=== PATIENT | female | born 1940 | race Caucasian/White ===

== ENCOUNTER → 2017-05-22 11:01 | Outpatient (CLI) | payer MEDICARE, SELFPAY ==
[2017-05-22 13:08] LABS: AST(SGOT) 16 U/L (15-37); Alanine Aminotransfer ALT/SGPT 23 U/L (13-56); Albumin, Serum 3.9 g/dL (3.2-5.0); Alkaline Phosphatase 101 U/L (45-117); Bilirubin, Direct 0.17 mg/dL (0.00-0.30); Globulin 3.5 g/dL (2.2-4.2); Protein, Total 7.4 g/dL (6.4-8.2)
== END ==
PROVIDERS: Family Provider Internal Medicine; PCP Internal Medicine; Visit Provider Internal Medicine Gastroenterology
DX: R10.9 Unspecified abdominal pain (principal); Z90.49 Acquired absence of other specified parts of digestive tract
CPT/HCPCS: 36415; 80076

== ENCOUNTER → 2017-09-14 07:22 | Outpatient (CLI) | payer MEDICARE, SELFPAY ==
[2017-09-14 09:55] LABS: AST(SGOT) 121 U/L (15-37); Alanine Aminotransfer ALT/SGPT 334 U/L (13-56); Albumin, Serum 3.4 g/dL (3.2-5.0); Alkaline Phosphatase 184 U/L (45-117); Bilirubin, Direct 0.62 mg/dL (0.00-0.30); Cholesterol 124 mg/dL (200); Globulin 3.7 g/dL (2.2-4.2); High Density Lipoprotein 51 mg/dL; Protein, Total 7.1 g/dL (6.4-8.2); Triglycerides 91 mg/dL; Very Low Density Lipoprotein 18 mg/dL (5-40)
== END ==
PROVIDERS: Family Provider Internal Medicine; PCP Internal Medicine; Visit Provider Physician Assistant Medical
DX: E78.5 Hyperlipidemia, unspecified (principal); Z79.899 Other long term (current) drug therapy
CPT/HCPCS: 36415; 80061; 80076

== ENCOUNTER → 2017-09-21 08:26 | Outpatient (CLI) | payer MEDICARE, SELFPAY ==
[2017-09-21 09:51] LABS: AST(SGOT) 24 U/L (15-37); Alanine Aminotransfer ALT/SGPT 67 U/L (13-56); Albumin, Serum 3.4 g/dL (3.2-5.0); Alkaline Phosphatase 158 U/L (45-117); Bilirubin, Direct 0.27 mg/dL (0.00-0.30); Globulin 3.7 g/dL (2.2-4.2); Protein, Total 7.1 g/dL (6.4-8.2)
== END ==
PROVIDERS: Physician Assistant Medical; Family Provider Internal Medicine; PCP Internal Medicine; Visit Provider Internal Medicine Cardiovascular Disease
DX: R74.8 Abnormal levels of other serum enzymes (principal)
CPT/HCPCS: 36415; 80076

== ENCOUNTER → 2017-12-25 07:38 | Outpatient (CLI) | payer MEDICARE, SELFPAY ==
[2017-12-25 08:51] LABS: AST(SGOT) 18 U/L (15-37); Alanine Aminotransfer ALT/SGPT 21 U/L (13-56); Albumin, Serum 3.6 g/dL (3.2-5.0); Alkaline Phosphatase 90 U/L (45-117); Bilirubin, Direct 0.15 mg/dL (0.00-0.30); Cholesterol 209 mg/dL (200); Globulin 3.6 g/dL (2.2-4.2); High Density Lipoprotein 52 mg/dL; Protein, Total 7.2 g/dL (6.4-8.2); Triglycerides 150 mg/dL; Very Low Density Lipoprotein 30 mg/dL (5-40)
== END ==
PROVIDERS: Family Provider Internal Medicine; PCP Internal Medicine; Referring Provider Internal Medicine Cardiovascular Disease; Visit Provider Internal Medicine Cardiovascular Disease
DX: E78.00 Pure hypercholesterolemia, unspecified (principal); I10 Essential (primary) hypertension
CPT/HCPCS: 36415; 80061; 80076

== ENCOUNTER → 2018-04-16 05:49 | Outpatient (CLI) | payer MEDICARE, SELFPAY ==
[2018-03-20 10:29] VITALS: BMI 31.1
--- NOTE | 2018-04-16 06:06 | ECHOD_ITS ---
Reason For Study: [place] Procedure This was a 2D Doppler, Color Flow transthoracic echocardiogram. Exam performed in department. Left Ventricle Normal LV size. Left ventricular systolic function is normal. The estimated ejection fraction is 65 %. Stage 1 diastolic dysfunction. No regional wall motion abnormalities noted. Right Ventricle Normal RV size. Normal systolic function. Atria Normal left atrium. Normal right atrium. Mitral Valve Bileaflet diffuse mitral valve thickening. Mild focal mitral valve calcification of the posterior leaflet. Mild (1+) eccentric mitral valve insufficiency. Tricuspid Valve Normal tricuspid valve. Mild (1+) tricuspid valve insufficiency. Pulmonary artery systolic pressure is 31 mmHg. Aortic Valve Trisinus/trileaflet aortic valve. Mild focal aortic valve calcification. Peak aortic valve gradient 26 mmHg. Mean aortic valve gradient 16 mmHg. Mild aortic stenosis. Calculated aortic valve area (continuity equation) is 1.5 cm2. Mild (1+) aortic valve insufficiency. Pulmonic Valve Normal pulmonic valve. Great Vessels Normal aortic root. The pulmonary artery is normal size. Normal inferior vena cava. MMode/2D Measurements & Calculations LVIDd: 4.0 cm IVSd: 0.85 cm LVOT diam: 2.0 cm LVIDs: 2.2 cm LVPWd: 0.87 cm LVOT area: 3.1 cm2 RVDd: 3.2 cm FS: 45.5 % Ao root diam: 2.9 cm LAV(MOD-bp): 46.9 ml LA A4 area: 16.7 cm2 LAV(MOD-bp) Indexed: 24.0 ml/m2 LAV(MOD-sp2): 55.7 ml LAV(MOD-sp4): 39.5 ml LA dimension(2D): 4.3 cm RA A4 area: 15.5 cm2 Doppler Measurements & Calculations MV E max ascencion: 153.8 cm/sec Lat Peak E' Ascencion: 7.2 cm/sec Med Peak E' Ascencion: 6.3 cm/sec MV A max ascencion: 195.1 cm/sec E/E' lat: 21.3 E/E' med: 24.3 MV E/A: 0.79 MV V2 max: 197.8 cm/sec Ao V2 max: 257.2 cm/sec AI max ascencion: 491.7 cm/sec MV max P.7 mmHg Ao max P.5 mmHg AI max P.8 mmHg MV V2 mean: 110.0 cm/sec Ao V2 mean: 192.1 cm/sec MV mean P.6 mmHg Ao mean P.3 mmHg AI dec slope: 275.4 cm/sec2 MV V2 VTI: 61.1 cm Ao V2 VTI: 63.1 cm AI P1/2t: 523.0 msec MVA(VTI): 1.5 cm2 TANIKA(I,D): 1.5 cm2 TANIKA(V,D): 1.5 cm2 LV V1 max: 122.9 cm/sec MR max ascencion: 568.1 cm/sec SV(LVOT): 91.8 ml LV V1 max P.1 mmHg MR max P.1 mmHg LV V1 mean P.5 mmHg LV V1 mean: 89.4 cm/sec LV V1 VTI: 29.8 cm PA V2 max: 115.8 cm/sec TR max ascencion: 258.0 cm/sec TR max P.7 mmHg Interpretation Summary Normal LV size. Left ventricular systolic function is normal. The estimated ejection fraction is 65 %. Stage 1 diastolic dysfunction. Mild focal aortic valve calcification. Mild aortic stenosis. Mild (1+) tricuspid valve insufficiency. Pulmonary artery systolic pressure is 31 mmHg. Ordering Physician: Leslie Tafoya Referring Physician: Leslie Tafoya Performed By: Lisa Connelly RDCS, RVT
--- NOTE | 2018-04-16 12:46 | STRESSREP ---
Stress Test Report Exercise myocardial perfusion stress test. 77-year-old lady with a history of chest pain. Medications: Cozaar, Lantus, metoprolol, lisinopril, omeprazole. Stress protocol: Resting EKG demonstrates normal sinus rhythm with a rate of 65 bpm normal intervals are noted resting blood pressure is 140/70 mmHg. The patient exercised according to regular Andre protocol for total duration of 6 minutes and 30 seconds the maximum heart rate attained was 134 bpm which was 92% of maximum predicted heart rate the maximum workload attained was 7.7 metabolic equivalents. At rest there were no ST or T wave changes noted suggest ischemia at peak exercise no ST or T wave changes were noted suggest ischemia. No clinical angina was noted the test was terminated due to leg fatigue. The resting blood pressure 140/70 with a peak blood pressure 152/78. Rate pressure product was 18,600. Myocardial perfusion protocol. 11.3 mCi of technetium 99m sestamibi was injected at rest. The patient exercised according to regular Andre protocol for 6-1/2 minutes attaining 92% of maximum predicted heart rate and a workload of 7.7 metastases. At peak exercise 33.5 mCi of technetium 99m sestamibi was injected stress images were obtained stress and rest images were reconstructed and compared in the short axis vertical long horizontal long axis. Gated images were also obtained for Perfusion SPECT analysis: Review of the stress images demonstrate normal uptake of tracer noted in all areas of the myocardium. Rest images similarly demonstrate normal uptake of tracer noted in all areas of the myocardium. No areas of reversibility are noted suggest ischemia no previous infarct is noted. Gated SPECT analysis: The gated ejection fraction is noted to be 86%. Conclusion: Normal exercise myocardial perfusion stress test at a moderate workload. No clinical angina noted. Good functional capacity noted. Preserved ejection fraction.
--- OUTSIDE RECORDS SUMMARY | 2018-06-20 21:57 | XMS RPT_ITS ---
:1940 Author Organization OHIP Support Name Relationship Address Phone RAMÓN FISHER Unavailable [address] + [place] [address] R Unavailable Unavailable Unavailable LYNCH, RIP Unavailable Unavailable + [place] [address] RAMÓN FISHER Unavailable [address] + [place] [address] R Unavailable Unavailable Unavailable LYNCH, RIP Unavailable Unavailable + [place] [address] RAMÓN FISHER Unavailable [address] + [place] [address] R Unavailable Unavailable Unavailable LYNCH, RIP Unavailable . + ., . . RAMÓN FISHER Unavailable [address] + [place] [address] R Unavailable Unavailable Unavailable LYNCH, RIP Unavailable Unavailable + RAMÓN FISHER Unavailable [address] + [place] [address] R Unavailable Unavailable Unavailable LYNCH, RIP Unavailable . + [place] [address] RAMÓN FISHER Unavailable [address] + [place] [address] R Unavailable Unavailable Unavailable LYNCH, RIP Unavailable Unavailable + RAMÓN FISHER Unavailable [address] + [place] [address] R Unavailable Unavailable Unavailable LYNCH, RIP Unavailable Unavailable + RAMÓN FISHER Unavailable [address] + [place] [address] R Unavailable Unavailable Unavailable RAMÓN FISHER Unavailable [address] + [place] [address] R Unavailable Unavailable Unavailable Care Team Providers Name Role Phone TALAMPAS, LORI D Referring Unavailable TALAMPAS, LORI D Referring Unavailable TALAMPAS, LORI D Attending Unavailable TALAMPAS, LORI D Referring Unavailable TALAMPAS, LORI D Referring Unavailable TALAMPAS, LORI D Referring Unavailable MI POOLE ([employer]) Attending Unavailable TALAMPAS, LORI D Attending Unavailable TALAMPAS, LORI D Referring Unavailable TALAMPAS, LORI D Referring Unavailable TALAMPAS, LORI D Referring Unavailable TALAMPAS, LORI D Referring Unavailable Leslie Tafoya Attending Unavailable Talampas, Lori Referring Unavailable TafoyaLeslie gamez Attending Unavailable TafoyaLeslie Referring Unavailable Talampas, Lori Primary Care Unavailable Bobby Contreras Attending Unavailable Talampas, Lori Primary Care Unavailable TafoyaLeslie gamez Attending Unavailable Leslie Tafoya Referring Unavailable Talampas, Lori Primary Care Unavailable Romain, Guicho Attending Unavailable Romain, Guicho Referring Unavailable Talampas, Lori Primary Care Unavailable Romain, Guicho Attending Unavailable Leslie Tafoya Referring Unavailable Talampas, Lori Primary Care Unavailable Leslie Tafoya Consulting Unavailable Romain, Guicho Attending Unavailable Talampas, Lori Referring Unavailable Talampas, Lori Primary Care Unavailable Romain, Guicho Attending Unavailable Romain, Guicho Referring Unavailable Talampas, Lori Primary Care Unavailable Leslie Tafoya Attending Unavailable Talampas, Lori Referring Unavailable Talampas, Lori Primary Care Unavailable PROBLEMS PROBLEMS DATE TYPE CONDITION / CODE ATTENDING STATUS SOURCE Unknown I25.10 - Atherosclerotic Romain, [place] Active [place] [facility] heart disease of [place] [facility] coronary artery without Hospital angina pectoris / Repository I25.10(ICD-10) Unknown R01.1 - Cardiac murmur, Romain, [place] Active [place] unspecified / Community R01.1(ICD-10) Hospital Repository Active Type 2 diabetes mellitus NA Active [place] [address] without complications / Clinic Main E11.9(ICD-10) [place] Repository Active [facility] (current) use NA Active [place] 8 of insulin / Clinic Main Z79.4(ICD-10) [place] Repository Active Asymptomatic menopausal NA Active [place] 8 state / Z78.0(ICD-10) Clinic Main [place] Repository Unknown I10 - Essential (primary) Romain, Guich[place] Active [place] hypertension / Community I10(ICD-10) Hospital Repository Unknown E78.00 - Pure Romain, [place] Active [place] 8 hypercholesterolemia, Community unspecified / Hospital E78.00(ICD-10) Repository Active Essential (primary) NA Active [place] hypertension / Clinic Main I10(ICD-10) [place] Repository Active Type 2 diabetes mellitus NA Active [place] 8 with hyperglycemia / Clinic Main E11.65(ICD-10) [place] Repository Active Other abnormal glucose / NA Active [place] 8 R73.09(ICD-10) Clinic Main [place] Repository Active Abnormal levels of other NA Active [place] 8 serum enzymes / Clinic Main R74.8(ICD-10) [place] Repository Unknown 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, 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 Community graft / Z95.1(ICD-10) Hospital Repository Unknown R09.89 - Other specified Romain, [place] Active [place] 8 symptoms and signs Community involving the circulatory Hospital and respiratory systems / Repository R09.89(ICD-10) Unknown E78.0 - Pure Romain, [place] Active [place] hypercholesterolemia / Community E78.0(ICD-10) Hospital Repository Unknown 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 / [facility] Z79.899(ICD-10) Hospital Repository Unknown E78.5 - Hyperlipidemia, Tafoya, Active [place] 8 unspecified / [facility] E78.5(ICD-10) Hospital Repository Active Mixed hyperlipidemia / NA Active [place] 5 E78.2(ICD-10) Clinic Main [place] Repository Active Other obesity due to NA Active [place] 8 excess calories / Clinic Main E66.09(ICD-10) [place] Repository Active Other licensed mass real estate appraiser (current) NA Active [place] 8 drug therapy / Clinic Main Z79.899(ICD-10) [place] Repository Active Encounter for screening NA Active [place] [address] mammogram for malignant Clinic Main neoplasm of breast / [place] Z12.31(ICD-10) Repository PROCEDURES PROCEDURES No Procedure Records FoundRESULTS RESULTS STRESS REPORT Observed: 04/16/2018 Status: F Source: [place] 12:48 PM [facility] REPOSITORY [facility] Cardiovascular Services [address] [place] [address] MR#: [id number] Acct: [id number] Name: MAGNOLIA FISHER Rep #: [id number] : 1940 77 From: Guicho Hoyos MD Primary Care: Lori Can MD Status: REG CLI Ordering Dr: Sex: F C Stress Test Report Exercise myocardial perfusion stress test. 77-year-old lady with a history of chest pain. Medications: Cozaar, Lantus, metoprolol, lisinopril, omeprazole. Stress protocol: Resting EKG demonstrates normal sinus rhythm with a rate of 65 bpm normal intervals are noted resting blood pressure is 140/70 mmHg. The patient exercised according to regular Andre protocol for total duration of 6 minutes and 30 seconds the maximum heart rate attained was 134 bpm which was 92% of maximum predicted heart rate the maximum workload attained was 7.7 metabolic equivalents. At rest there were no ST or T wave changes noted suggest ischemia at peak exercise no ST or T wave changes were noted suggest ischemia. No clinical angina was noted the test was terminated due to leg fatigue. The resting blood pressure 140/70 with a peak blood pressure 152/78. Rate pressure product was 18,600. Myocardial perfusion protocol. 11.3 mCi of technetium 99m sestamibi was injected at rest. The patient exercised according to regular Andre protocol for 6-1/2 minutes attaining 92% of maximum predicted heart rate and a workload of 7.7 metastases. At peak exercise 33.5 mCi of technetium 99m sestamibi was injected stress images were obtained stress and rest images were reconstructed and compared in the short axis vertical long horizontal long axis. Gated images were also obtained for Perfusion SPECT analysis: Review of the stress images demonstrate normal uptake of tracer noted in all areas of the myocardium. Rest images similarly demonstrate normal uptake of tracer noted in all areas of the myocardium. No areas of reversibility are noted suggest ischemia no previous infarct is noted. Gated SPECT analysis: The gated ejection fraction is noted to be 86%. Conclusion: Normal exercise myocardial perfusion stress test at a moderate workload. No clinical angina noted. Good functional capacity noted. Preserved ejection fraction. 04/16/18 1248 <Electronically signed by Guicho Hoyos MD> Date Guicho Hoyos MD CC: Lori Can MD; Leslie Tafoya Date Dictated: 04/16/181245 Date Transcribed: 04/16/181245 Manager Data Warehousing: CO Signed ECHOCARDIOGRAM COMPLETE Observed: 04/16/2018 Status: F Source: [place] 12:35 PM [facility] REPOSITORY [facility] Cardiovascular Services [address] [place] [id number] Echo Complete 04/16/18 0849 MR#: [id number] Acct: [id number] Name: MAGNOLIA FISHER Rep #: [id number] : 1940 77 From: Guicho Hoyos MD Attending Dr: Leslie Tafyoa Status: REG CLI Ordering Dr: Leslie Tafoya Date: 04/16/18 Location: [facility] Sex: F C Admitted: Reason For Study: [place] Procedure This was a 2D Doppler, Color Flow transthoracic echocardiogram. Exam performed in department. Left Ventricle Normal LV size. Left ventricular systolic function is normal. The estimated ejection fraction is 65 %. Stage 1 diastolic dysfunction. No regional wall motion abnormalities noted. Right Ventricle Normal RV size. Normal systolic function. Atria Normal left atrium. Normal right atrium. Mitral Valve Bileaflet diffuse mitral valve thickening. Mild focal mitral valve calcification of the posterior leaflet. Mild (1+) eccentric mitral valve insufficiency. Tricuspid Valve Normal tricuspid valve. Mild (1+) tricuspid valve insufficiency. Pulmonary artery systolic pressure is 31 mmHg. Aortic Valve Trisinus/trileaflet aortic valve. Mild focal aortic valve calcification. Peak aortic valve gradient 26 mmHg. Mean aortic valve gradient 16 mmHg. Mild aortic stenosis. Calculated aortic valve area (continuity equation) is 1.5 cm2. Mild (1+) aortic valve insufficiency. Pulmonic Valve Normal pulmonic valve. Great Vessels Normal aortic root. The pulmonary artery is normal size. Normal inferior vena cava. MMode/2D Measurements AND Calculations LVIDd: 4.0 cm IVSd: 0.85 cm LVOT diam: 2.0 cm LVIDs: 2.2 cm LVPWd: 0.87 cm LVOT area: 3.1 cm2 RVDd: 3.2 cm FS: 45.5 % Ao root diam: 2.9 cm LAV(MOD-bp): 46.9 ml LA A4 area: 16.7 cm2 LAV(MOD-bp) Indexed: 24.0 ml/m2 LAV(MOD-sp2): 55.7 ml LAV(MOD-sp4): 39.5 ml LA dimension(2D): 4.3 cm RA A4 area: 15.5 cm2 Doppler Measurements AND Calculations MV E max ned: 153.8 cm/sec Lat Peak E' Ned: 7.2 cm/sec Med Peak E' Ned: 6.3 cm/sec MV A max ned: 195.1 cm/sec E/E' lat: 21.3 E/E' med: 24.3 MV E/A: 0.79 MV V2 max: 197.8 cm/sec Ao V2 max: 257.2 cm/sec AI max ned: 491.7 cm/sec MV max P.7 mmHg Ao max P.5 mmHg AI max P.8 mmHg MV V2 mean: 110.0 cm/sec Ao V2 mean: 192.1 cm/sec MV mean P.6 mmHg Ao mean P.3 mmHg AI dec slope: 275.4 cm/sec2 MV V2 VTI: 61.1 cm Ao V2 VTI: 63.1 cm AI P1/2t: 523.0 msec MVA(VTI): 1.5 cm2 TANIKA(I,D): 1.5 cm2 TANIKA(V,D): 1.5 cm2 LV V1 max: 122.9 cm/sec MR max ned: 568.1 cm/sec SV(LVOT): 91.8 ml LV V1 max P.1 mmHg MR max P.1 mmHg LV V1 mean P.5 mmHg LV V1 mean: 89.4 cm/sec LV V1 VTI: 29.8 cm PA V2 max: 115.8 cm/sec TR max ned: 258.0 cm/sec TR max P.7 mmHg Interpretation Summary Normal LV size. Left ventricular systolic function is normal. The estimated ejection fraction is 65 %. Stage 1 diastolic dysfunction. Mild focal aortic valve calcification. Mild aortic stenosis. Mild (1+) tricuspid valve insufficiency. Pulmonary artery systolic pressure is 31 mmHg. Ordering Physician: Leslie Tafoya Referring Physician: Leslie Tafoya Performed By: Lisa Connelly RDCS, RVT 04/16/18 1234 Date Guicho Hoyos MD CC: Lori Can MD; Leslie Tafoya Date Dictated: 04/16/18 0849 Date Transcribed: 04/16/18 1234 Manager Data Warehousing: Signed PROGRESS Observed: 04/08/2018 Status: COMPLETED Source: [place] 3:00 PM [facility] REPOSITORY O ID: [id number] Author: Mali Dawson (Pharmacist) Service: (none) Author Type: Pharmacist Type: Progress Notes Filed: 04/10/2018 9:12 AM Note Text: Patient consents to pharmacy collaborative practice agreement. REASON FOR CONSULT: DM? GOALS: A1c <?7% CONSULTING PROVIDER: Dr. Can Date of Consult: 11/14/17 Magnolia Fisher is a 77 year old female was last seen in [facility]?by PCP, Dr. Lori Can MD on 12/24/17. Patient is presenting today for?f/u?pharmacotherapy management?appointment for DM.? At?last PharmD visit metformin was increased INTERIM HISTORY: Reports diarrhea with metformin 2 pills, better on one pill Dr. Hoyos stopped statin Stress test next week Continued stressor at home taking care of with recurrent COPD exacerbations, having a swallow study done Current DM Medications: Metformin ER 500mg daily (GI upset with higher doses) Insulin glargine (Lantus) VIAL?30 units QHS Insulin aspart 14 units TID meals - right before each meal Canagliflozin 300mg QAM Current HTN Medications: Losartan 50mg once daily Metoprolol succinate 100mg once daily Preventative Medications: ? On ANGELA/ARB: Yes ? On Statin: Yes ? On ASA: No ROS: ? Patient denies CP, SOB, GARCIA, blurred vision, dizziness or lightheadedness ? Patient denies symptoms of hypoglycemia (sweating, anxiety, palpitations, hunger, and tremor) ? Patient denies symptoms of hyperglycemia (polyuria, polydipsia, polyphagia) ? Patient denies potential medication adverse effects DIET/EXERCISE/SOCIAL Hx: ? MEDICATIONS: ? Pill bottles are not?present. ? Adherence: denies missed doses ? Pharmacy: [facility] mail order? Rx coverage: [employer] ? Affordability: insulin and Invokana most expensive (reports that [facility] reimburses patient) ? Diabetes supplies: [employer] ? Organization System: none ACTIVE PROBLEM LIST Myalgia and Myositis, Unspecified Mixed Hyperlipidemia Essential Hypertension Obesity, Unspecified Degeneration of Cervical Intervertebral Disc Diabetes Mellitus (Hcc) Cervical radiculopathy Esophageal Reflux Retinal Hemorrhage Disorder of Bone and Cartilage, Unspecified Acute Gastritis Without Mention of Hemorrhage Diaphragmatic Hernia Without Mention of Obstruction Or Gangrene Depression Sleep Apnea Choledocholithiasis Chronic Cholecystitis Gastroparesis PAST MEDICAL HISTORY Diagnosis Date - Acute gastritis without mention of hemorrhage - Asthma - Coronary atherosclerosis of unspecified type of vessel, [place] or graft - Depression - Diaphragmatic hernia without mention of obstruction or gangrene - Esophageal reflux 07/29/2006 - Hypersomnia with sleep apnea, unspecified - Irritable bowel syndrome - Localized osteoarthrosis not specified whether primary or secondary, unspecified site - Myalgia and myositis, unspecified - Obesity, unspecified - Obstructive sleep apnea - Other and unspecified hyperlipidemia - Other specified gastritis - Retinal hemorrhage 02/27/2007 Dr. Yu - Type II or unspecified type diabetes mellitus without mention of complication, uncontrolled - Unspecified essential hypertension ALLERGIES Allergen Reactions - Lisinopril Cough Resolved after stopped medication - Seasonal Allergies Other: See Comments wheezing Medication List Medication Directions Comments Action/Plan albuterol HFA (PROAIR HFA) 90 mcg/actuation inhaler Inhale 2 Puffs as instructed every 4 hours as needed. atorvastatin (LIPITOR) 40 mg tablet Take 1 tablet by mouth once daily. BD INSULIN SYRINGE UF II 1/2 mL 31 x 5/16 syrg USE DIRECTED WITH LANTUS benzonatate (TESSALON PERLE) 100 mg capsule Take 2 capsules by mouth three times daily as needed. blood sugar diagnostic (ACCU-CHEK LENORE PLUS TEST STRP) test strip Test blood sugar(s) 3 times daily. Dx: Type 2 DM - Uncontrolled E11.65 Insulin: Yes Blood-Glucose Meter (ACCU-CHEK LENORE PLUS METER) [facility] Dispense 1 Meter Kit. Dx: E11.65 canagliflozin (INVOKANA) 300 mg tablet Take 1 tablet by mouth daily before breakfast. Cholecalciferol, Vitamin D3, 2,000 unit Tab Take 1 capsule by mouth one time daily insulin aspart U-100 (NOVOLOG FLEXPEN U-100 INSULIN) 100 unit/mL inpn Inject 14 Units subcutaneously three times daily before meals. insulin glargine (LANTUS U-100 INSULIN) 100 unit/mL injection Inject 30 Units subcutaneously once daily. Lancets lancets Test blood sugar(s) 3 times daily. Dx: Type 2 DM - Controlled 65 Insulin: Yes loratadine (CLARITIN) 10 mg tablet Take 1 tablet by mouth once daily as needed. FOR ALLERGY SYMPTOMS losartan (COZAAR) 50 mg tablet Take 1 tablet by mouth once daily. metFORMIN ER (GLUCOPHAGE XR) 500 mg 24 hr tablet Take 2 tablets by mouth once daily. metoprolol succinate ER (TOPROL XL) 100 mg Tb24 Take 1 tablet by mouth once daily. pykyrxmk-yib-jqpg-FA-lutein (CENTRUM SILVER WOMEN) 8 mg iron- 400 mcg-300 mcg tab Take 1 tablet by mouth daily nitroglycerin sublingual (NITROSTAT) 0.4 mg SL tablet Dissolve 1 tablet under the tongue as needed. If no pain relief call 911. Dr. Hoyos. omeprazole (PRILOSEC) 20 mg capsule Take 1 capsule by mouth daily before breakfast. 1/2 hr before meal. vitamin b complex tab Take 1 tablet by mouth once daily. GLYCEMIC CONTROL: ? Glucometer present at visit: No ? SMBG?s: ? Reports FBGs 130, 150 at noon, 190-200 at night ? One low - 12/24 - 50 mg/dL forgot to eat ? Hypoglycemia: denies ? How corrected: ate, does have glucose tabs Last 3 Encounter BP Readings: Date: BP: 01/27/2018 116/57 01/20/2018 122/72 12/24/2017 118/72 Wt: 74.8 kg (165 lb) BMI: 31.18 kg/(m2) LABS Lab Results Component Value Date HBA1C 8.1 04/03/2018 HBA1C 8.4 12/20/2017 HBA1C 9.2 11/12/2017 CMP: Glucose 176 04/03/2018 BUN 16 04/03/2018 Creatinine 0.69 04/03/2018 Sodium 140 04/03/2018 Potassium 4.7 04/03/2018 Chloride 102 04/03/2018 CO2 25 04/03/2018 Protein, Total 6.9 04/03/2018 Albumin 4.0 04/03/2018 Calcium 9.1 04/03/2018 Alkaline Phosphatase 102 04/03/2018 Bilirubin, Total 0.6 04/03/2018 AST 27 04/03/2018 ALT 17 04/03/2018 Last Lipid Panel Lab Results Component Value Date CHOL 188 04/03/2018 Lab Results Component Value Date HDL 59 04/03/2018 Lab Results Component Value Date LDL 111 04/03/2018 Lab Results Component Value Date TG 92 04/03/2018 Albumin/Creat Ratio (mg/g) Date Value 08/17/2017 Not calculated PHARMACOTHERAPY ASSESSMENT/PLAN: 1. Type 2 diabetes mellitus without complication, with long- term current use of insulin ([facility]) - ICD9: 250.00, V58.67, ICD10: E11.9, Z79.4 (primary diagnosis) A1c goal <?7%, patient is not?at goal (8.1% on 04/03). Could consider goal < 8% given age.?FBGs reported mostly at goal and PPBGs not?at goal but improving, with one episode of hypoglycemia. Patient had to self-decrease metformin d/t GI upset. Continue regimen at this time.?Renal fxn and LFTs WNL?and appropriate for continued therapy ? CONTINUE metformin ER 500mg once daily, Lantus 30 units QHS, Novolog 14 units TID meals, and Invokana 300mg daily ? Instructed patient continue checking FBGs and PPBGs 3x daily, bring glucometer to next visit ? Discussed hypoglycemia treatment with rule of 15, has glucose tabs 2. Mixed hyperlipidemia - ICD9: 272.2, ICD10: E78.2 Pt is on high statin intensity as of December 2017 (previously on atorvastatin 10mg) Patient compliant with and tolerating current regimen. Will continue and recheck lipids in July. LFTs and renal fxn WNL and appropriate for continued therapy ? CONTINUE atorvastatin 40mg daily Patient is scheduled to see PCP 04/28/18. Patient to return to clinic for PharmD f/u on 05/13. Patient verbalized understanding of instructions. Mali Dawson PharmD, BCPS CNOV Observed: 04/08/2018 Status: COMPLETED Source: [place] 3:00 PM [facility] REPOSITORY Office Visit (PHMEWO) MAGNOLIA FISHER ([id number]) 1940 F BLD Date Time Provider Department 04/08/18 3:00 PM SAMIR (PHARMACIST), MALI RAINEY During your visit today, we recorded the following information about you: LEE PABLO 04/10/2018 9:12 AM Signed Patient consents to pharmacy collaborative practice agreement. REASON FOR CONSULT: DM? GOALS: A1c <?7% CONSULTING PROVIDER: Dr. Can Date of Consult: 11/14/17 Magnloia Fisher is a 77 year old female was last seen in [facility]?by PCP, Dr. Lori Can MD on 12/24/17. Patient is presenting today for?f/u?pharmacotherapy management?appointment for DM.? At?last PharmD visit metformin was increased INTERIM HISTORY: Reports diarrhea with metformin 2 pills, better on one pill Dr. Hoyos stopped statin Stress test next week Continued stressor at home taking care of with recurrent COPD exacerbations, having a swallow study done Current DM Medications: Metformin ER 500mg daily (GI upset with higher doses) Insulin glargine (Lantus) VIAL?30 units QHS Insulin aspart 14 units TID meals - right before each meal Canagliflozin 300mg QAM Current HTN Medications: Losartan 50mg once daily Metoprolol succinate 100mg once daily Preventative Medications: ? On ANGELA/ARB: Yes ? On Statin: Yes ? On ASA: No ROS: ? Patient denies CP, SOB, GARCIA, blurred vision, dizziness or lightheadedness ? Patient denies symptoms of hypoglycemia (sweating, anxiety, palpitations, hunger, and tremor) ? Patient denies symptoms of hyperglycemia (polyuria, polydipsia, polyphagia) ? Patient denies potential medication adverse effects DIET/EXERCISE/SOCIAL Hx: ? MEDICATIONS: ? Pill bottles are not?present. ? Adherence: denies missed doses ? Pharmacy: [facility] mail order? Rx coverage: [employer] ? Affordability: insulin and Invokana most expensive (reports that [facility] reimburses patient) ? Diabetes supplies: [employer] [facility] ? Organization System: none ACTIVE PROBLEM LIST Myalgia and Myositis, Unspecified Mixed Hyperlipidemia Essential Hypertension Obesity, Unspecified Degeneration of Cervical Intervertebral Disc Diabetes Mellitus (Hcc) Cervical radiculopathy Esophageal Reflux Retinal Hemorrhage Disorder of Bone and Cartilage, Unspecified Acute Gastritis Without Mention of Hemorrhage Diaphragmatic Hernia Without Mention of Obstruction Or Gangrene Depression Sleep Apnea Choledocholithiasis Chronic Cholecystitis Gastroparesis PAST MEDICAL HISTORY Diagnosis Date - Acute gastritis without mention of hemorrhage - Asthma - Coronary atherosclerosis of unspecified type of vessel, [place] or graft - Depression - Diaphragmatic hernia without mention of obstruction or gangrene - Esophageal reflux 07/29/2006 - Hypersomnia with sleep apnea, unspecified - Irritable bowel syndrome - Localized osteoarthrosis not specified whether primary or secondary, unspecified site - Myalgia and myositis, unspecified - Obesity, unspecified - Obstructive sleep apnea - Other and unspecified hyperlipidemia - Other specified gastritis - Retinal hemorrhage 02/27/2007 Dr. Yu - Type II or unspecified type diabetes mellitus without mention of complication, uncontrolled - Unspecified essential hypertension ALLERGIES Allergen Reactions - Lisinopril Cough Resolved after stopped medication - Seasonal Allergies Other: See Comments wheezing Medication List Medication Directions Comments Action/Plan albuterol HFA (PROAIR HFA) 90 mcg/actuation inhaler Inhale 2 Puffs as instructed every 4 hours as needed. atorvastatin (LIPITOR) 40 mg tablet Take 1 tablet by mouth once daily. BD INSULIN SYRINGE UF II 1/2 mL 31 x 5/16 syrg USE DIRECTED WITH LANTUS benzonatate (TESSALON PERLE) 100 mg capsule Take 2 capsules by mouth three times daily as needed. blood sugar diagnostic (ACCU-CHEK LENORE PLUS TEST STRP) test strip Test blood sugar(s) 3 times daily. Dx: Type 2 DM - Uncontrolled . Insulin: Yes Blood-Glucose Meter (ACCU-CHEK LENORE PLUS METER) [facility] Dispense 1 Meter Kit. Dx: E11. canagliflozin (INVOKANA) 300 mg tablet Take 1 tablet by mouth daily before breakfast. Cholecalciferol, Vitamin D3, 2,000 unit Tab Take 1 capsule by mouth one time daily insulin aspart U-100 (NOVOLOG FLEXPEN U-100 INSULIN) 100 unit/mL inpn Inject 14 Units subcutaneously three times daily before meals. insulin glargine (LANTUS U-100 INSULIN) 100 unit/mL injection Inject 30 Units subcutaneously once daily. Lancets lancets Test blood sugar(s) 3 times daily. Dx: Type 2 DM - Controlled Insulin: Yes loratadine (CLARITIN) 10 mg tablet Take 1 tablet by mouth once daily as needed. FOR ALLERGY SYMPTOMS losartan (COZAAR) 50 mg tablet Take 1 tablet by mouth once daily. metFORMIN ER (GLUCOPHAGE XR) 500 mg 24 hr tablet Take 2 tablets by mouth once daily. metoprolol succinate ER (TOPROL XL) 100 mg Tb24 Take 1 tablet by mouth once daily. mjfnwqgs-akx-qiai-FA-lutein (CENTRUM SILVER WOMEN) 8 mg iron- 400 mcg-300 mcg tab Take 1 tablet by mouth daily nitroglycerin sublingual (NITROSTAT) 0.4 mg SL tablet Dissolve 1 tablet under the tongue as needed. If no pain relief call 911. Dr. Hoyos. omeprazole (PRILOSEC) 20 mg capsule Take 1 capsule by mouth daily before breakfast. 1/2 hr before meal. vitamin b complex tab Take 1 tablet by mouth once daily. GLYCEMIC CONTROL: ? Glucometer present at visit: No ? SMBG?s: ? Reports FBGs 130, 150 at noon, 190-200 at night ? One low - 12/24 - 50 mg/dL forgot to eat ? Hypoglycemia: denies ? How corrected: ate, does have glucose tabs Last 3 Encounter BP Readings: Date: BP: 01/27/2018 116/57 01/20/2018 122/72 12/24/2017 118/72 Wt: 74.8 kg (165 lb) BMI: 31.18 kg/(m2) LABS Lab Results Component Value Date HBA1C 8.1 04/03/2018 HBA1C 8.4 12/20/2017 HBA1C 9.2 11/12/2017 CMP: Glucose 176 04/03/2018 BUN 16 04/03/2018 Creatinine 0.69 04/03/2018 Sodium 140 04/03/2018 Potassium 4.7 04/03/2018 Chloride 102 04/03/2018 CO2 25 04/03/2018 Protein, Total 6.9 04/03/2018 Albumin 4.0 04/03/2018 Calcium 9.1 04/03/2018 Alkaline Phosphatase 102 04/03/2018 Bilirubin, Total 0.6 04/03/2018 AST 27 04/03/2018 ALT 17 04/03/2018 Last Lipid Panel Lab Results Component Value Date CHOL 188 04/03/2018 Lab Results Component Value Date HDL 59 04/03/2018 Lab Results Component Value Date LDL 111 04/03/2018 Lab Results Component Value Date TG 92 04/03/2018 Albumin/Creat Ratio (mg/g) Date Value 08/17/2017 Not calculated PHARMACOTHERAPY ASSESSMENT/PLAN: 1. Type 2 diabetes mellitus without complication, with long- term current use of insulin ([facility]) - ICD9: 250.00, V58.67, ICD10: E11.9, Z79.4 (primary diagnosis) A1c goal <?7%, patient is not?at goal (8.1% on 04/03). Could consider goal < 8% given age.?FBGs reported mostly at goal and PPBGs not?at goal but improving, with one episode of hypoglycemia. Patient had to self-decrease metformin d/t GI upset. Continue regimen at this time.?Renal fxn and LFTs WNL?and appropriate for continued therapy ? CONTINUE metformin ER 500mg once daily, Lantus 30 units QHS, Novolog 14 units TID meals, and Invokana 300mg daily ? Instructed patient continue checking FBGs and PPBGs 3x daily, bring glucometer to next visit ? Discussed hypoglycemia treatment with rule of 15, has glucose tabs 2. Mixed hyperlipidemia - ICD9: 272.2, ICD10: E78.2 Pt is on high statin intensity as of December 2017 (previously on atorvastatin 10mg) Patient compliant with and tolerating current regimen. Will continue and recheck lipids in July. LFTs and renal fxn WNL and appropriate for continued therapy ? CONTINUE atorvastatin 40mg daily Patient is scheduled to see PCP 04/28/18. Patient to return to clinic for PharmD f/u on 05/13. Patient verbalized understanding of instructions. Mali Dawson, PharmD, [facility] MALI DAWSON, PHARMACIST 04/08/2018 3:[address] Hoyos office Call Mali if still questions Referring Provider: SELF [[id number]] Allergies As of Date: 04/08/2018 Noted Allergy Reaction LISINOPRIL 06/06/2011 3 - Cough Comments: Resolved after stopped medication SEASONAL ALLERGIES 06/26/2013 14 - Other: See Comments Comments: wheezing Date Reviewed: 01/20/2018 Reviewed by: Chino Daniels) - Fully Assessed Reason for Visit: Allied Health Visit [5] Cmt: DM follow-up Reason For Visit History Recorded Primary Visit Diagnosis:Type 2 diabetes mellitus without complication, with long-term current use of insulin (HCC) [E11.9, Z79.4] Other Visit Diagnosis:Mixed hyperlipidemia [E78.2] Order(s):metFORMIN ER (GLUCOPHAGE XR) 500 mg 24 hr tabletTake 1 tablet by mouth once daily.Disp: 90 tabletRfl: 3 Prescriptions as of 04/08/2018 Sig: METFORMIN ER 500 MG TABLET,EX* Take 1 tablet by mouth once d* INSULIN GLARGINE (U-100) 100 * Inject 30 Units subcutaneousl* BLOOD SUGAR DIAGNOSTIC STRIPS Test blood sugar(s) 3 times d* ATORVASTATIN 40 MG TABLET Take 1 tablet by mouth once d* BENZONATATE 100 MG CAPSULE Take 2 capsules by mouth thre* MULTIVIT WITH CDFFESYL-IYCL-Q* Take 1 tablet by mouth daily INSULIN ASPART U-100 100 UNI* Inject 14 Units subcutaneousl* CANAGLIFLOZIN 300 MG TABLET Take 1 tablet by mouth daily * METOPROLOL SUCCINATE ER 100 M* Take 1 tablet by mouth once d* LOSARTAN 50 MG TABLET Take 1 tablet by mouth once d* OMEPRAZOLE 20 MG CAPSULE,ELÍAS* Take 1 capsule by mouth daily* LANCETS Test blood sugar(s) 3 times d* BLOOD-GLUCOSE METER Dispense 1 Meter Kit. Dx: E1* BD INSULIN SYRINGE ULT-FINE I* USE DIRECTED WITH LANTUS LORATADINE 10 MG TABLET Take 1 tablet by mouth once d* NITROGLYCERIN 0.4 MG SUBLINGU* Dissolve 1 tablet under the t* VITAMIN B COMPLEX TABLET Take 1 tablet by mouth once d* CHOLECALCIFEROL (VITAMIN D3) * Take 1 capsule by mouth one t* ALBUTEROL SULFATE HFA 90 MCG/* Inhale 2 Puffs as instructed * Problem List As Of Date 04/08/2018 Noted Resolved MYALGIA AND MYOSITIS NOS [[id number]] Mixed hyperlipidemia [E78.2] Essential hypertension [I10] OBESITY NOS [E66.9] CERVICAL DISC DEGEN [M50.30] INVALID FOR* Diabetes mellitus (HCC) [E11.9] INVALID FOR* Cervical radiculopathy [[id number]] INVALID FOR* ESOPHAGEAL REFLUX [K21.9] INVALID FOR* RETINAL HEMORRHAGE [H35.60] INVALID FOR* More... BONE AND CARTILAGE DIS NOS [M89.9, M94.9] INVALID FOR* Acute gastritis without mention of hemorrhage [*INVALID FOR* Diaphragmatic hernia without mention of obstruc*INVALID FOR* Depression [F32.9] INVALID FOR* Sleep apnea [G47.30] INVALID FOR* More... Choledocholithiasis [K80.50] INVALID FOR* Chronic cholecystitis [K81.1] INVALID FOR* Gastroparesis [K31.84] INVALID FOR* Other instructions from your clinician: Call Dr. Hoyos office Call Mali if still questions Prescriptions ordered this encounter Disp Refills Start End METFORMIN ER 500 MG TABLET,EXTENDED * 90 t* 3 04/08/2018 Route: ORAL Sig: Take 1 tablet by mouth once daily. Medications Discontinued During This Encounter metFORMIN ER (GLUCOPHAGE XR) 500 mg * 180 * 3 03/31/2018 04/08/2018 Route: ORAL Sig: Take 2 tablets by mouth once daily. Disc: Reason for discontinue is not on file. Encounter Status:Closed by SAMIR (PHARMACIST)MALI on 04/10/18 COMP METABOLIC PANEL Collected: 04/03/2018 Status: F Source: [place] 7:46 AM [facility] REPOSITORY TYPE CODE TESTS RESULT OUT OF REFERENCE UNITS RANGE LAB TP 6.3-8.0 g/dL Protein, Total 6.9 LAB ALB 3.9-4.9 g/dL Albumin 4.0 LAB CA 8.5-10.2 mg/dL Calcium, Total 9.1 LAB TBIL 0.2-1.3 mg/dL Bilirubin, Total 0.6 LAB ALKP 34-123 U/L Alkaline Phosphatase 102 LAB AST 13-35 U/L AST 27 LAB GLU 74-99 mg/dL Glucose High 176 Result Comment: The [place] Diabetes Association (ADA) provides guidance for cutoff values for fasting glucose and random glucose. The ADA defines fasting as no caloric intake for at least 8 hours. Fas ting plasma glucose results between 100 to 125 mg/dL indicate increased risk for diabetes (prediabetes). Fasting plasma glucose results greater than or equal to 126 mg/dL meet the criteria for diagnosis of diabetes. In the absence of unequivocal hyperglycemia, results should be confirmed by repeat testing. In a patient with classic symptoms of hyperglycemia or hyperglycemic crisis, random plasma glucose results greater than or equal to 200 mg/dL meet the criteria for diagnosis of diabetes. Reference: Standards of Medical Care in Diabetes 2016, [place] Diabetes Association. Diabetes Care. 2016.39(Suppl 1). LAB BUN 7-21 mg/dL BUN 16 LAB CRET 0.58-0.96 mg/dL Creatinine 0.69 LAB NA 136-144 mmol/L Sodium 140 LAB K 3.7-5.1 mmol/L Potassium 4.7 LAB CL 97-105 mmol/L Chloride 102 LAB CO2 22-30 mmol/L CO2 25 LAB AGAP 9-18 mmol/L Anion Gap 13 LAB ALT 7-38 U/L ALT 17 LAB GFRAA eGFR- Amer. >60 LAB GFRNAA . eGFR-All Other Races >60 Result Comment: eGFR (Estimated GFR) Units of measure: mL/min/1.73 meters squared eGFR is derived from the reexpressed MDRD Study equation using the following parameters: serum creatinine, age, gender and race. The creatinine assay has been calibrated to be traceable to IDMS. An eGFR <60 mL/min/1.73m2 for >3 months is consistent with chronic kidney disease. Refer to KDOQI guidelines for clinical interpretation. In patients with unstable renal function, e.g. those with acute kidney injury, the eGFR may not accurately reflect actual GFR. Performed By: #### CMP, LIPB, HBA1C #### [facility] [address] [place], [place] [address] LIPID PANEL, BASIC Collected: 04/03/2018 Status: F Source: [place] 7:46 AM [facility] REPOSITORY TYPE CODE TESTS RESULT OUT OF REFERENCE UNITS RANGE LAB CHOL <200 mg/dL Cholesterol 188 Result Comment: <200 mg/dL, Desirable 200-239 mg/dL, Borderline high >239 mg/dL, High LAB TRIGLY <150 mg/dL Triglyceride 92 Result Comment: <150 mg/dL, Normal 150-199 mg/dL, Borderline high 200-499 mg/dL, High >499 mg/dL, Very high LAB HDL >39 mg/dL HDL-Cholesterol 59 Result Comment: 40-59 mg/dL, Acceptable >59 mg/dL, High: Negative risk factor for coronary heart disease <40 mg/dL, Low: Positive risk factor for coronary heart disease LAB LDL <100 mg/dL LDL-Cholesterol High 111 Result Comment: <100 mg/dL, Optimal 100-129 mg/dL, Near optimal/above optimal 130-159 mg/dL, Borderline high 160-189 mg/dL, High >189 mg/dL, Very high Secondary prevention optimal LDL Cholesterol levels are recommended to be < 70 mg/dL LAB NONHDL <130 mg/dL Non HDL Cholesterol 129 Result Comment: <130 mg/dL, Optimal 130-159 mg/dL, Near optimal/above optimal 160-189 mg/dL, Borderline high 190-219 mg/dL, High >219 mg/dL, Very high Secondary prevention optimal non HDL Cholesterol levels are recommended to be < 100 mg/dL LAB FT hrs Fasting Time 13 LAB VLDL <30 mg/dL VLDL Cholesterol 18 LAB TCHDL <5.10 TC:HDL Ratio 3.19 LAB LDLHDL <2.54 LDL:HDL Ratio 1.88 Result Comment: Reference: 1. National Cholesterol Education Program ATP III Guideline At-A-Glance Quick Desk Reference: National Heart, Lung, and Blood [place]. National Institutes of Health. 2001: NIH Publication No. 01-3305. 2. An International Atherosclerosis Society position paper: global recommendations for the management of dyslipidemia: executive summary, Atherosclerosis. 2014: 232(2):410-413. Performed By: #### CMP, LIPB, HBA1C #### [facility] [address] [place], [place] [address] HEMOGLOBIN A1C Collected: 04/03/2018 Status: F Source: [place] 7:46 AM [facility] REPOSITORY TYPE CODE TESTS RESULT OUT OF REFERENCE UNITS RANGE LAB HGBA1C 4.3-5.6 % High Hemoglobin A1c 8.1 Result Comment: [place] Diabetes Association guidelines indicate that patients with HgbA1c in the range 5.7-6.4% are at increased risk for development of diabetes, and intervention by lifestyle modification may be beneficial. HgbA1c greater or equal to 6.5% is considered diagnostic of diabetes. LAB HBA0 mg/dL Est. Average Glucose 186 Result Comment: eAG: (Estimated average glucose) is a calculated value from HgbA1c and is veterans service representative of the average blood glucose level in the last 2-3 month period. Performed By: #### CMP, LIPB, HBA1C #### [facility] [address] [place], [place] [address] CARDIOLOGY VISIT Observed: 03/20/2018 Status: F Source: [place] [facility] 3:54 PM [facility] REPOSITORY [facility] [address] [place] [address] OFFICE VISIT Date of Service: 03/20/18 MR#: [id number] Acct: [id number] Name: MAGNOLIA FISHER Rep #: [id number] : 1940 Provider: Leslie Tafoya Age/Sex: 77/F [place] [facility] Status: Signed HPI HPI Chief Complaint: Follow up visit Details: MAGNOLIA FISHER, is a 77 F who presents to the office today for cardiovascular follow-up. She is a history of coronary artery disease with bypass surgery in 1998. She had an MACARIO to the LAD, left radial to the diagonal. Heart catheterization in 2007 demonstrated left main normal, LAD totally occluded, ramus intermedius 30-40% stenosis, circumflex with no significant disease, RCA small with no significant disease, radial artery to the diagonal patent, MACARIO to LAD patent. Stress test in 2012 was negative for ischemia at a moderate workload. From a cardiac standpoint, patient is doing well. She does not have any chest discomfort/heaviness/tightness. Her exercise tolerance is stable for her age. She does not have any worsening symptoms of shortness of breath. She does not have any orthopnea. She denies PND. She does not have any symptoms of congestive heart failure. She does not have any palpitations that she is aware of. She does not have any lightheadedness or dizziness. She does not have any near-syncope or syncope. She does not have any lower extremity edema. She does not have any symptoms of claudication. She has had issues with her liver enzymes. Intake Vital Signs03/20/18 Height 5 ft 1 in 03/20/18 Weight: 165 lb 03/20/18 Body Mass Index (BMI) 31.1 03/20/18 Blood Pressure 144/82 H 03/20/18 Blood Pressure Location Lt brachial Intake Visit Reasons: 6 M Director Ehs Required: No Accompanied by: Is patient in pain?: No Allergies lisinopril Adverse Reaction (Verified 03/20/18 10:30) COUGH shellfish Allergy (Uncoded 04/16/17 16:58) lip swelling, diarrhea Medications Losartan Potassium [Cozaar] 50 mg PO DAILY 02/04/13 [History Confirmed 03/20/18] Cholecalciferol (Vitamin D3) [Vitamin D] 1,000 units PO DAILY 03/27/13 [History Confirmed 03/20/18] Insulin Glargine [Lantus SoloStar Pen] 30 units SC QHS 03/27/13 [History Confirmed 03/20/18] Metoprolol(XL)Succ [Toprol Xl] 100 mg PO DAILY 03/27/13 [History Confirmed 03/20/18] Loratadine 10 mg PO DAILY PRN PRN 04/16/17 [History Confirmed 03/20/18] Nitroglycerin [Nitrostat] 0.4 mg SL TID PRN PRN 04/16/17 [History Confirmed 03/20/18] insulin lispro (U- 100) 100 unit/mL subcutaneous solution 20 unit SC .COMPLEX 09/23/17 [History Confirmed 03/20/18] omeprazole 20 mg capsule,delayed release 20 mg PO DAILY cap 09/23/17 [History Confirmed 03/20/18] canagliflozin 300 mg tablet 300 mg PO DAILY 03/20/18 [History Confirmed 03/20/18] metformin ER 500 mg tablet,extended release 24 hr PO 30 Days #30 tab 03/20/18 [History Confirmed 03/20/18] PFSH Medical History Elevated liver enzymes (Acute) Pancreatitis due to biliary obstruction (Acute) Hypertension (Chronic) Atherosclerotic heart disease of [place] coronary artery without angina pectoris (Chronic) Hyperlipidemia (Chronic) Diabetes mellitus, type 2 (Chronic) Surgical History Hx of CABG (Chronic 1998) Family History Father Aortic aneurysm Hypertension CAD (coronary artery disease) Brother Hypertension Diabetes COPD (chronic obstructive pulmonary disease) Sister Hypertension Aortic aneurysm Daughter Hypertension Cancer Mother COPD (chronic obstructive pulmonary disease) CHF (congestive heart failure) Social History Smoking Status: Former smoker alcohol intake: never substance use type: does not use caffeine: Yes Type: coffee, tea what type of physical activity do you participate in: walking frequency: daily duration: 15-30 minutes/day seatbelt use: always do you feel safe at home: Yes ROS Const Const: Negative for weakness, fatigue, fever(s) or headache(s) Eyes Eyes: Negative for blind spots, loss of peripheral vision or transient loss of vision ENT ENT: Negative for headache(s) Cardio Chest Pain: No Edema: None Muscle aches with walking: None Resp Respiratory: Negative for SOB with activity, SOB at rest or SOB orthopnea\SOB lying down GI GI: Negative nausea, vomiting, heartburn or vomiting blood/hematemesis : Negative for hematuria Musc Musc: Negative for muscle aches/ myalgia Neuro Neuro: Negative for weakness or headache(s) Martin Hematologic/Lymphatic: Negative for easy bleeding Endo Endo: Negative for fatigue Cardiology Exam Const Appearance: cooperative, no acute distress and well developed Orientation: alert, awake and oriented x3 Head Head: normocephalic; negative atraumatic Eyes General: appearance normal, both eyes and all related structures Conjunctivae: conjunctivae normal Pupils: PERRL Neck Neck: normal visual inspection, no lymphadenopathy and no JVD Carotids: bruit Left Chest Chest inspection: normal inspection of the chest and symmetric chest movement Auscultation: Bilateral: Clear to Auscultation Cardio Palpation: normal PMI Rate: regular rate Rhythm: regular rhythm Heart sounds: S1 normal, S2 normal and murmur; negative rub or gallop Murmur: soft, Grade 2/6 and mid systolic GI GI: normal to inspection, soft, no hepatosplenomegaly and bowel sounds present; negative tender Neuro General: alert, awake, oriented x3, CN's II-XI intact bilaterally and moves all extremities Extremities Pulses: Normal: Right Posterior Tibial Pulse, Left Posterior Tibial Pulse, Right Radial Pulse, Absent: Left Radial Pulse Lower Extremity Edema: None: Bilateral Psych Psychological: normal affect Assessment AND Plan 1. Atherosclerosis of [place] coronary artery of [place] heart without angina pectoris I25.10 CABG X 2 vessels 04/10/1998 @ [facility] per Dr. Bayron Aguilar: MACARIO for the LAD, left radial artery for the large DX. Plan - CARL Rios Stable, from a cardiac standpoint patient does not have any symptoms of angina. We recommend that they continue with current aggressive medical management and risk factor modification. It has been greater than 5 years since patient has had a stress test. With her diabetes would like to obtain this to evaluate for underlying ischemia. Orders Orders: 2. Essential hypertension I10 Plan - CARL Rios She wasBlood pressure is well controlled on current medications, we do not recommend any changes at this time. 3. Pure hypercholesterolemia E78.00 Plan - CARL Rios Patient is currently not on any statin therapy. She does have a history of elevated liver enzymes. Would like for her to continue to not take any medications. Her recent liver enzyme test was normal. Would like to repeat these in 3 months. If they are elevated we will reconsider a low-dose statin. 4. Cardiac murmur R01.1 Plan - CARL Rios She does have a newly found cardiac murmur. Would like to obtain a echocardiogram to further evaluate. Orders Orders: Plan Detail Additional Comments - CARL Rios The above patient was discussed with Dr. Hoyos, he agrees with plan of care. Thank you for allowing us to participate in patient's plan of care, if you have any questions please do not hesitate to call. This note was generated using a voice recognition system and there may be incorrect words, spelling or punctuation errors that were not noted when reviewing the office note prior to saving. Follow Up 6 Months (INFORMATION ENGINEER) Coding Level of Care Code Off vis,est,level 4 Diagnoses Atherosclerosis of [place] coronary artery of [place] heart without angina pectoris I25.10 [place] vs. transplanted heart: [place] heart Essential hypertension I10 Hypertension type: essential hypertension Pure hypercholesterolemia E78.00 Hyperlipidemia type: pure hypercholesterolemia Cardiac murmur R01.1 Coding Level of Care Code Off vis,est,level 4 Diagnoses Atherosclerosis of [place] coronary artery of [place] heart without angina pectoris I25.10 [place] vs. transplanted heart: [place] heart Essential hypertension I10 Hypertension type: essential hypertension Pure hypercholesterolemia E78.00 Hyperlipidemia type: pure hypercholesterolemia Cardiac murmur R01.1 03/20/18 1339 <Electronically signed by Leslie Tafoya PA> Date Leslie HENRY 03/20/18 1554<Electronically signed by Guicho Hoyos MD> Cosigner Signature: Date (if applicable) Guicho Hoyos MD CC: Lori Can MD PROGRESS Observed: 03/03/2018 Status: COMPLETED Source: [place] 1:30 PM [facility] REPOSITORY HNO ID: [id number] Author: Mali Dawson (Pharmacist) Service: (none) Author Type: Pharmacist Type: Progress Notes Filed: 03/03/2018 5:06 PM Note Text: Patient consents to pharmacy collaborative practice agreement. REASON FOR CONSULT: DM? GOALS: A1c <?7% CONSULTING PROVIDER: Dr. Can Date of Consult: 11/14/17 ? Magnolia Fisher is a 77 year old female was last seen in [facility] by PCP, Dr. Lori Can MD on 12/24/17. ? Patient is presenting today for f/u pharmacotherapy management appointment for DM. At last PharmD visit metformin was started and atorvastatin dose was increased INTERIM HISTORY: Reports not feeling great, some depression/anxiety Takes care of ill , has to process his food so he can swallow it Still taking her meds and taking care of herself Moved Novolog pens to the kitchen (from bedroom) - has 3 holders, one for each meal Remembering it much better this way Current DM Medications: Metformin ER 500mg daily - had diarrhea, but better now Insulin glargine (Lantus) VIAL?30 units QHS Insulin aspart 14 units TID meals - right before each meal Canagliflozin 300mg QAM Current HTN Medications: Losartan 50mg once daily Metoprolol succinate 100mg once daily Preventative Medications: ? On ANGELA/ARB: Yes ? On Statin: Yes ? On ASA: No ROS: ? Patient denies CP, SOB, GARCIA, blurred vision, dizziness or lightheadedness ? Patient denies symptoms of hypoglycemia (sweating, anxiety, palpitations, hunger, and tremor) ? Patient denies symptoms of hyperglycemia (polyuria, polydipsia, polyphagia) ? Patient denies potential medication adverse effects DIET/EXERCISE/SOCIAL Hx: Skipped a couple meals lately ? Breakfast:?oatmeal and almond milk or bermudian muffin ? Lunch:?vegetable (salad) or ham sandwich ? Dinner:?TV dinners ? Snacks: cut out cookies and sweets ? Following Na restrictions: no ? Beverages: orange juice, flavored water no sugar, water ? MEDICATIONS: ? Pill bottles are not?present. ? Adherence: denies missed doses ? Pharmacy: [facility]? Rx coverage: [employer] ? Affordability: insulin and Invokana most expensive (reports that [facility] PERS reimburses patient) ? Diabetes supplies: [employer] ? Organization System: none ACTIVE PROBLEM LIST Myalgia and Myositis, Unspecified Mixed Hyperlipidemia Essential Hypertension Obesity, Unspecified Degeneration of Cervical Intervertebral Disc Diabetes Mellitus (Hcc) Cervical radiculopathy Esophageal Reflux Retinal Hemorrhage Disorder of Bone and Cartilage, Unspecified Acute Gastritis Without Mention of Hemorrhage Diaphragmatic Hernia Without Mention of Obstruction Or Gangrene Depression Sleep Apnea Choledocholithiasis Chronic Cholecystitis Gastroparesis PAST MEDICAL HISTORY Diagnosis Date - Acute gastritis without mention of hemorrhage - Asthma - Coronary atherosclerosis of unspecified type of vessel, [place] or graft - Depression - Diaphragmatic hernia without mention of obstruction or gangrene - Esophageal reflux 07/29/2006 - Hypersomnia with sleep apnea, unspecified - Irritable bowel syndrome - Localized osteoarthrosis not specified whether primary or secondary, unspecified site - Myalgia and myositis, unspecified - Obesity, unspecified - Obstructive sleep apnea - Other and unspecified hyperlipidemia - Other specified gastritis - Retinal hemorrhage 02/27/2007 Dr. Yu - Type II or unspecified type diabetes mellitus without mention of complication, uncontrolled - Unspecified essential hypertension ALLERGIES Allergen Reactions - Lisinopril Cough Resolved after stopped medication - Seasonal Allergies Other: See Comments wheezing Medication List Medication Directions Comments Action/Plan albuterol HFA (PROAIR HFA) 90 mcg/actuation inhaler Inhale 2 Puffs as instructed every 4 hours as needed. Discontinued: 03/01/2018 2:40 PM atorvastatin (LIPITOR) 40 mg tablet Take 1 tablet by mouth once daily. BD INSULIN SYRINGE UF II 1/2 mL 31 x 5/16 syrg USE DIRECTED WITH LANTUS benzonatate (TESSALON PERLE) 100 mg capsule Take 2 capsules by mouth three times daily as needed. blood sugar diagnostic (ACCU-CHEK LENORE PLUS TEST STRP) test strip Test blood sugar(s) 3 times daily. Dx: Type 2 DM - Uncontrolled E11.65 Insulin: Yes Blood-Glucose Meter (ACCU-CHEK LENORE PLUS METER) [facility] Dispense 1 Meter Kit. Dx: E11.65 canagliflozin (INVOKANA) 300 mg tablet Take 1 tablet by mouth daily before breakfast. Cholecalciferol, Vitamin D3, 2,000 unit Tab Take 1 capsule by mouth one time daily Last 2013, Check vitamin D insulin aspart U-100 (NOVOLOG FLEXPEN U-100 INSULIN) 100 unit/mL inpn Inject 14 Units subcutaneously three times daily before meals. insulin glargine (LANTUS U-100 INSULIN) 100 unit/mL injection Inject 30 Units subcutaneously once daily. Lancets lancets Test blood sugar(s) 3 times daily. Dx: Type 2 DM - Controlled E11.65 Insulin: Yes loratadine (CLARITIN) 10 mg tablet Take 1 tablet by mouth once daily as needed. FOR ALLERGY SYMPTOMS losartan (COZAAR) 50 mg tablet Take 1 tablet by mouth once daily. Discontinued: 03/01/2018 2:40 PM metFORMIN ER (GLUCOPHAGE XR) 500 mg 24 hr tablet Take 1 tablet by mouth once daily. metoprolol succinate ER (TOPROL XL) 100 mg Tb24 Take 1 tablet by mouth once daily. pvqfmulx-ktd-npuq-FA-lutein (CENTRUM SILVER WOMEN) 8 mg iron- 400 mcg-300 mcg tab Take 1 tablet by mouth daily nitroglycerin sublingual (NITROSTAT) 0.4 mg SL tablet Dissolve 1 tablet under the tongue as needed. If no pain relief call 911. Dr. Hoyos. omeprazole (PRILOSEC) 20 mg capsule Take 1 capsule by mouth daily before breakfast. 1/2 hr before meal. vitamin b complex tab Take 1 tablet by mouth once daily. Rx meds not listed in EPIC: none OTCs: none Herbals: none GLYCEMIC CONTROL: ? Glucometer present at visit: No ? SMBG?s: ? FBGs: 100-140 ? Later in the day: 150-170, a few more than 200s ? Hypoglycemia: denies Last 3 Encounter BP Readings: Date: BP: 01/27/2018 116/57 01/20/2018 122/72 12/24/2017 118/72 Wt: 74.8 kg (165 lb) BMI: 31.18 kg/(m2) LABS Lab Results Component Value Date HBA1C 8.4 12/20/2017 HBA1C 9.2 11/12/2017 HBA1C 8.8 08/17/2017 CMP: Glucose 109 12/20/2017 BUN 15 12/20/2017 Creatinine 0.67 12/20/2017 Sodium 144 12/20/2017 Potassium 4.4 12/20/2017 Chloride 106 12/20/2017 CO2 24 12/20/2017 Protein, Total 6.7 12/20/2017 Albumin 4.0 12/20/2017 Calcium 9.3 12/20/2017 Alkaline Phosphatase 81 12/20/2017 Bilirubin, Total 0.6 12/20/2017 AST 20 12/20/2017 ALT 14 12/20/2017 GFR > 60 ? Estimated CrCL 67.6?mL/min (calculated using Ht 61, adjusted Wt 59?kg, sCr 0.67?mg/dL, using [place]ro[place] Gault) Last Lipid Panel Lab Results Component Value Date CHOL 209 12/25/2017 CHOL 151 08/17/2017 Lab Results Component Value Date HDL 52 12/25/2017 HDL 57 08/17/2017 Lab Results Component Value Date LDL 127 12/25/2017 LDL 77 08/17/2017 Lab Results Component Value Date TG 150 12/25/2017 TG 86 08/17/2017 Albumin/Creat Ratio (mg/g) Date Value 08/17/2017 Not calculated PHARMACOTHERAPY ASSESSMENT/PLAN: 1. Type 2 diabetes mellitus without complication, with long- term current use of insulin ([facility]) - ICD9: 250.00, V58.67, ICD10: E11.9, Z79.4 A1c goal <?7%, patient is not?at goal (8.4% on 12/20). Could consider goal < 8% given age.?FBGs at goal and PPBGs not?at goal but improving. Discussed increasing metformin and patient is willing. Continue basal and prandial doses at this time.?Renal fxn and LFTs WNL?and appropriate for continued therapy ? INCREASE metformin ER to 1,000mg once daily ? CONTINUE Lantus 30 units QHS, Novolog 14 units TID meals, and Invokana 300mg daily ? Instructed patient continue checking FBGs and PPBGs 3x daily Patient is scheduled to see PCP 04/28. Patient to return to clinic for PharmD f/u on 04/08. Patient verbalized understanding of instructions. Mali Dawson PharmD, BCPS CNOV Observed: 03/03/2018 Status: COMPLETED Source: [place] 1:30 PM [facility] REPOSITORY Office Visit ([facility]) MAGNOLIA FISHER ([id number]) 1940 F BLD Date Time Provider Department 03/03/18 1:30 PM SAMIR (PHARMACIST), MALI RAINEY During your visit today, we recorded the following information about you: LEE PABLO 03/03/2018 5:06 PM Signed Patient consents to pharmacy collaborative practice agreement. REASON FOR CONSULT: DM? GOALS: A1c <?7% CONSULTING PROVIDER: Dr. Can Date of Consult: 11/14/17 ? Magnolia Fisher is a 77 year old female was last seen in [facility] by PCP, Dr. Lori Can MD on 12/24/17. ? Patient is presenting today for f/u pharmacotherapy management appointment for DM. At last PharmD visit metformin was started and atorvastatin dose was increased INTERIM HISTORY: Reports not feeling great, some depression/anxiety Takes care of ill , has to process his food so he can swallow it Still taking her meds and taking care of herself Moved Novolog pens to the kitchen (from bedroom) - has 3 holders, one for each meal Remembering it much better this way Current DM Medications: Metformin ER 500mg daily - had diarrhea, but better now Insulin glargine (Lantus) VIAL?30 units QHS Insulin aspart 14 units TID meals - right before each meal Canagliflozin 300mg QAM Current HTN Medications: Losartan 50mg once daily Metoprolol succinate 100mg once daily Preventative Medications: ? On ANGELA/ARB: Yes ? On Statin: Yes ? On ASA: No ROS: ? Patient denies CP, SOB, GARCIA, blurred vision, dizziness or lightheadedness ? Patient denies symptoms of hypoglycemia (sweating, anxiety, palpitations, hunger, and tremor) ? Patient denies symptoms of hyperglycemia (polyuria, polydipsia, polyphagia) ? Patient denies potential medication adverse effects DIET/EXERCISE/SOCIAL Hx: Skipped a couple meals lately ? Breakfast:?oatmeal and almond milk or bermudian muffin ? Lunch:?vegetable (salad) or ham sandwich ? Dinner:?TV dinners ? Snacks: cut out cookies and sweets ? Following Na restrictions: no ? Beverages: orange juice, flavored water no sugar, water ? MEDICATIONS: ? Pill bottles are not?present. ? Adherence: denies missed doses ? [facility]? Rx coverage: Humana ? Affordability: insulin and Invokana most expensive (reports that [facility] reimburses patient) ? Diabetes supplies: Accu [place] Lenore ? Organization System: none ACTIVE PROBLEM LIST Myalgia and Myositis, Unspecified Mixed Hyperlipidemia Essential Hypertension Obesity, Unspecified Degeneration of Cervical Intervertebral Disc Diabetes Mellitus (Hcc) Cervical radiculopathy Esophageal Reflux Retinal Hemorrhage Disorder of Bone and Cartilage, Unspecified Acute Gastritis Without Mention of Hemorrhage Diaphragmatic Hernia Without Mention of Obstruction Or Gangrene Depression Sleep Apnea Choledocholithiasis Chronic Cholecystitis Gastroparesis PAST MEDICAL HISTORY Diagnosis Date - Acute gastritis without mention of hemorrhage - Asthma - Coronary atherosclerosis of unspecified type of vessel, [place] or graft - Depression - Diaphragmatic hernia without mention of obstruction or gangrene - Esophageal reflux 07/29/2006 - Hypersomnia with sleep apnea, unspecified - Irritable bowel syndrome - Localized osteoarthrosis not specified whether primary or secondary, unspecified site - Myalgia and myositis, unspecified - Obesity, unspecified - Obstructive sleep apnea - Other and unspecified hyperlipidemia - Other specified gastritis - Retinal hemorrhage 02/27/2007 Dr. Yu - Type II or unspecified type diabetes mellitus without mention of complication, uncontrolled - Unspecified essential hypertension ALLERGIES Allergen Reactions - Lisinopril Cough Resolved after stopped medication - Seasonal Allergies Other: See Comments wheezing Medication List Medication Directions Comments Action/Plan albuterol HFA (PROAIR HFA) 90 mcg/actuation inhaler Inhale 2 Puffs as instructed every 4 hours as needed. Discontinued: 03/01/2018 2:40 PM atorvastatin (LIPITOR) 40 mg tablet Take 1 tablet by mouth once daily. BD INSULIN SYRINGE UF II 1/2 mL 31 x 5/16 syrg USE DIRECTED WITH LANTUS benzonatate (TESSALON PERLE) 100 mg capsule Take 2 capsules by mouth three times daily as needed. blood sugar diagnostic (ACCU-CHEK LENORE PLUS TEST STRP) test strip Test blood sugar(s) 3 times daily. Dx: Type 2 DM - Uncontrolled E11.65 Insulin: Yes Blood-Glucose Meter (ACCU-CHEK LENORE PLUS METER) [facility] Dispense 1 Meter Kit. Dx: E11.65 canagliflozin (INVOKANA) 300 mg tablet Take 1 tablet by mouth daily before breakfast. Cholecalciferol, Vitamin D3, 2,000 unit Tab Take 1 capsule by mouth one time daily Last 2013, Check vitamin D insulin aspart U-100 (NOVOLOG FLEXPEN U-100 INSULIN) 100 unit/mL inpn Inject 14 Units subcutaneously three times daily before meals. insulin glargine (LANTUS U-100 INSULIN) 100 unit/mL injection Inject 30 Units subcutaneously once daily. Lancets lancets Test blood sugar(s) 3 times daily. Dx: Type 2 DM - Controlled E11.65 Insulin: Yes loratadine (CLARITIN) 10 mg tablet Take 1 tablet by mouth once daily as needed. FOR ALLERGY SYMPTOMS losartan (COZAAR) 50 mg tablet Take 1 tablet by mouth once daily. Discontinued: 03/01/2018 2:40 PM metFORMIN ER (GLUCOPHAGE XR) 500 mg 24 hr tablet Take 1 tablet by mouth once daily. metoprolol succinate ER (TOPROL XL) 100 mg Tb24 Take 1 tablet by mouth once daily. mkjuojju-kdf-okcr-FA-lutein (CENTRUM SILVER WOMEN) 8 mg iron- 400 mcg-300 mcg tab Take 1 tablet by mouth daily nitroglycerin sublingual (NITROSTAT) 0.4 mg SL tablet Dissolve 1 tablet under the tongue as needed. If no pain relief call 911. Dr. Hoyos. omeprazole (PRILOSEC) 20 mg capsule Take 1 capsule by mouth daily before breakfast. 1/2 hr before meal. vitamin b complex tab Take 1 tablet by mouth once daily. Rx meds not listed in EPIC: none OTCs: none Herbals: none GLYCEMIC CONTROL: ? Glucometer present at visit: No ? SMBG?s: ? FBGs: 100-140 ? Later in the day: 150-170, a few more than 200s ? Hypoglycemia: denies Last 3 Encounter BP Readings: Date: BP: 01/27/2018 116/57 01/20/2018 122/72 12/24/2017 118/72 Wt: 74.8 kg (165 lb) BMI: 31.18 kg/(m2) LABS Lab Results Component Value Date HBA1C 8.4 12/20/2017 HBA1C 9.2 11/12/2017 HBA1C 8.8 08/17/2017 CMP: Glucose 109 12/20/2017 BUN 15 12/20/2017 Creatinine 0.67 12/20/2017 Sodium 144 12/20/2017 Potassium 4.4 12/20/2017 Chloride 106 12/20/2017 CO2 24 12/20/2017 Protein, Total 6.7 12/20/2017 Albumin 4.0 12/20/2017 Calcium 9.3 12/20/2017 Alkaline Phosphatase 81 12/20/2017 Bilirubin, Total 0.6 12/20/2017 AST 20 12/20/2017 ALT 14 12/20/2017 GFR > 60 ? Estimated CrCL 67.6?mL/min (calculated using Ht 61, adjusted Wt 59?kg, sCr 0.67?mg/dL, using [place] Gault) Last Lipid Panel Lab Results Component Value Date CHOL 209 12/25/2017 CHOL 151 08/17/2017 Lab Results Component Value Date HDL 52 12/25/2017 HDL 57 08/17/2017 Lab Results Component Value Date LDL 127 12/25/2017 LDL 77 08/17/2017 Lab Results Component Value Date TG 150 12/25/2017 TG 86 08/17/2017 Albumin/Creat Ratio (mg/g) Date Value 08/17/2017 Not calculated PHARMACOTHERAPY ASSESSMENT/PLAN: 1. Type 2 diabetes mellitus without complication, with long- term current use of insulin (HCC) - ICD9: 250.00, V58.67, ICD10: E11.9, Z79.4 A1c goal <?7%, patient is not?at goal (8.4% on 12/20). Could consider goal < 8% given age.?FBGs at goal and PPBGs not?at goal but improving. Discussed increasing metformin and patient is willing. Continue basal and prandial doses at this time.?Renal fxn and LFTs WNL?and appropriate for continued therapy ? INCREASE metformin ER to 1,000mg once daily ? CONTINUE Lantus 30 units QHS, Novolog 14 units TID meals, and Invokana 300mg daily ? Instructed patient continue checking FBGs and PPBGs 3x daily Patient is scheduled to see PCP 04/28. Patient to return to clinic for PharmD f/u on 04/08. Patient verbalized understanding of instructions. Mali Dawson, PharmD, BCPS MALI DAWSON, PHARMACIST 03/03/2018 1:59 PM Signed Blood test late March or early April Increase metfomrin to 2 pills with food Referring Provider: SELF [[id number]] Allergies As of Date: 03/03/2018 Noted Allergy Reaction LISINOPRIL 06/06/2011 3 - Cough Comments: Resolved after stopped medication SEASONAL ALLERGIES 06/26/2013 14 - Other: See Comments Comments: wheezing Date Reviewed: 01/20/2018 Reviewed by: Chino Pineda - Fully Assessed Reason for Visit: Allied Health Visit [5] Cmt: DM follow-up Primary Visit Diagnosis:Type 2 diabetes mellitus without complication, with long-term current use of insulin (HCC) [E11.9, Z79.4] Order(s):insulin glargine (LANTUS U-100 INSULIN) 100 unit/mL injectionInject 30 Units subcutaneously once daily.Disp: 90 mLRfl: 3 blood sugar diagnostic (ACCU-CHEK LENORE PLUS TEST STRP) test stripTest blood sugar(s) 3 times daily. Dx: Type 2 DM - Uncontrolled E11.65 Insulin: YesDisp: 400 StripRfl: 3 [START ON 03/31/2018] metFORMIN ER (GLUCOPHAGE XR) 500 mg 24 hr tabletTake 2 tablets by mouth once daily.Disp: 180 tabletRfl: 3 LIPID PANEL BASIC [SQLIPB] Order #: [id number] FUTURE HGB A1C [ZYJBI7H] Order #: [id number] FUTURE COMP METABOLIC PANEL [SQCMP] Order #: [id number] FUTURE Prescriptions as of 03/03/2018 Sig: INSULIN GLARGINE (U-100) 100 * Inject 30 Units subcutaneousl* BLOOD SUGAR DIAGNOSTIC STRIPS Test blood sugar(s) 3 times d* METFORMIN ER 500 MG TABLET,EX* Take 2 tablets by mouth once * ATORVASTATIN 40 MG TABLET Take 1 tablet by mouth once d* BENZONATATE 100 MG CAPSULE Take 2 capsules by mouth thre* MULTIVIT WITH [id number]-[id number]-G* Take 1 tablet by mouth daily INSULIN ASPART U-100 100 UNI* Inject 14 Units subcutaneousl* CANAGLIFLOZIN 300 MG TABLET Take 1 tablet by mouth daily * METOPROLOL SUCCINATE ER 100 M* Take 1 tablet by mouth once d* LOSARTAN 50 MG TABLET Take 1 tablet by mouth once d* OMEPRAZOLE 20 MG CAPSULE,ELÍSA* Take 1 capsule by mouth daily* LANCETS Test blood sugar(s) 3 times d* BLOOD-GLUCOSE METER Dispense 1 Meter Kit. Dx: E1* BD INSULIN SYRINGE ULT-FINE I* USE DIRECTED WITH LANTUS LORATADINE 10 MG TABLET Take 1 tablet by mouth once d* NITROGLYCERIN 0.4 MG SUBLINGU* Dissolve 1 tablet under the t* VITAMIN B COMPLEX TABLET Take 1 tablet by mouth once d* CHOLECALCIFEROL (VITAMIN D3) * Take 1 capsule by mouth one t* ALBUTEROL SULFATE HFA 90 MCG/* Inhale 2 Puffs as instructed * Problem List As Of Date 03/03/2018 Noted Resolved MYALGIA AND MYOSITIS NOS [[id number]] Mixed hyperlipidemia [E78.2] Essential hypertension [I10] OBESITY NOS [E66.9] CERVICAL DISC DEGEN [M50.30] INVALID FOR* Diabetes mellitus (HCC) [E11.9] INVALID FOR* Cervical radiculopathy [[id number]] INVALID FOR* ESOPHAGEAL REFLUX [K21.9] INVALID FOR* RETINAL HEMORRHAGE [H35.60] INVALID FOR* More... BONE AND CARTILAGE DIS NOS [M89.9, M94.9] INVALID FOR* Acute gastritis without mention of hemorrhage [*INVALID FOR* Diaphragmatic hernia without mention of obstruc*INVALID FOR* Depression [F32.9] INVALID FOR* Sleep apnea [G47.30] INVALID FOR* More... Choledocholithiasis [K80.50] INVALID FOR* Chronic cholecystitis [K81.1] INVALID FOR* Gastroparesis [K31.84] INVALID FOR* Other instructions from your clinician: Blood test late March or early April Increase metfomrin to 2 pills with food Prescriptions ordered this encounter Disp Refills Start End INSULIN GLARGINE (U-100) 100 UNIT/ML* 90 mL 3 03/03/2018 Route: SUBCUTANEOUS Sig: Inject 30 Units subcutaneously once daily. BLOOD SUGAR DIAGNOSTIC STRIPS 400 * 3 03/03/2018 Sig: Test blood sugar(s) 3 times daily. Dx: Type 2 DM - Uncontrolled E11.65 Insulin: Yes METFORMIN ER 500 MG TABLET,EXTENDED * 180 * 3 03/31/2018 Route: ORAL Sig: Take 2 tablets by mouth once daily. Medications Discontinued During This Encounter insulin glargine (LANTUS U-100 INSUL* 01/27/2018 03/03/2018 Class: Med Update Route: SUBCUTANEOUS Sig: Inject 30 Units subcutaneously once daily. Disc: Reason for discontinue is not on file. blood sugar diagnostic (ACCU-CHEK AV* 400 * 3 10/21/2015 03/03/2018 Class: [employer] Sig: Test blood sugar(s) 3 times daily. Dx: Type 2 DM - Uncontrolled E11.65 Insulin: Yes Disc: Reason for discontinue is not on file. metFORMIN ER (GLUCOPHAGE XR) 500 mg * 30 t* 11 03/31/2018 03/03/2018 Cmt: This prescription was filled on 02/28/2018. Any refills authorized will be placed on file. Route: ORAL Sig: Take 1 tablet by mouth once daily. Disc: Reason for discontinue is not on file. Encounter Status:Closed by SAMIR (PHARMACIST)MALI on 03/03/18 BD DXA - AXIAL Observed: 03/03/2018 Status: F Source: [place] 12:56 PM [facility] REPOS[facility] * * *Final Report* * * DATE OF EXAM: Mar 03 2018 12:56PM JULEE [id number] - BD DXA - AXIAL [place]KE[place] B / PROCEDURE REASON: Asymptomatic postmenopausal status * * * * Physician Interpretation * * * * BONE DENSITY SCREENING - 03/03/2018 12:56 PM HISTORY: INDICATIONS / RISK FACTORS / DEMOGRAPHICS: Asymptomatic postmenopausal status TECHNIQUE: Lumbar spine and both hips evaluated COMPARISON: 08/04/2007 STUDY LIMITATIONS: None RESULTS: LUMBAR SPINE: BMD = 0.938 g/cm2, which is -1.0 SDs (T-Score) for mean peak bone mass of young normals 1.5 SDs (Z-Score) for mean peak bone mass matched for age, sex, weight, ethnicity LEFT TOTAL HIP: BMD = 0.937 g/cm2, which is 0 SDs (T-Score) for mean peak bone mass of young normals 1.8 SDs (Z-Score) for mean peak bone mass matched for age, sex, weight, ethnicity LEFT FEMORAL NECK: BMD = 0.731 g/cm2, which is -1.1 SDs (T-Score) for mean peak bone mass of young normals 1.1 SDs (Z-Score) for mean peak bone mass matched for age, sex, weight, ethnicity Comment: There has been a 11.6% decrease in bone density in the left total femur. RIGHT TOTAL HIP: BMD = 0.88 g/cm2, which is -0.5 SDs (T-Score) for mean peak bone mass of young normals 1.3 SDs (Z-Score) for mean peak bone mass matched for age, sex, weight, ethnicity RIGHT FEMORAL NECK: BMD = 0.686 g/cm2, which is -1.5 SDs (T-Score) for mean peak bone mass of young normals 0.6 SDs (Z-Score) for mean peak bone mass matched for age, sex, weight, ethnicity Comment: There is been a 16.0% decrease in bone density in the right femoral neck.. 10-year Fracture Risk (FRAX): Major osteoporotic fracture risk 16% Hip fracture risk 2.9% IMPRESSION: The patient's T- scores meet the World Health Organization classification for osteopenia in the bilateral femoral necks. This patient may have an increased risk of insufficiency fracture. Recommendation: Follow up study in 2 to 4 years [facility] ORG. CLASSIFICATION OF BONE MASS CLASSIFICATION T-SCORE Normal Greater than or equal to -1 Low Bone Mass Between -1 and -2.5 (Osteopenia) Osteoporosis Less than or equal to -2.5 Manager Data Warehousing: [employer] Transcribe Date/Time: Mar 04 2018 8:19A Dictated by : CJ CAST DO This examination was interpreted and the report reviewed and electronically signed by: CJ CAST DO on Mar 04 2018 5:02PM EST [id number] PROGRESS Observed: 03/03/2018 Status: COMPLETED Source: [place] 12:24 PM [facility] [place] REPOSITORY HNO ID: [id number] Author: Nikhil Menendez (Rt) Yojana Neville Service: (none) Author Type: Grey Stock Recorder Type: Progress Notes Filed: 03/03/2018 12:57 PM Note Text: Radiology Service Progress Note PATIENT NAME: Magnolia Fisher DATE OF SERVICE: March 03, 2018 TIME: 12:57 PM PATIENT IDENTITY VERIFICATION COMPLETED USING TWO (2) METHODS: Patient confirmed name verbally and Date of . PATIENT GENDER DATA: Female. status: : No status: NO. PATIENT RELEVANT IMPLANT DATA REVIEWED: Not Applicable RADIOLOGY DEPARTMENT: Women's Health bone density PERIPHERAL IV DATA: Not applicable SIGNED BY: RT Mary Lou March 03, 2018 12:57 PM PROGRESS Observed: 01/27/2018 Status: COMPLETED Source: [place] 1:00 PM [facility] [place] REPOSITORY HNO ID: [id number] Author: Mali Dawson (Pharmacist) Service: (none) Author Type: Pharmacist Type: Progress Notes Filed: 01/27/2018 3:33 PM Note Text: Patient consents to pharmacy collaborative practice agreement. REASON FOR CONSULT: DM GOALS: A1c < 7% CONSULTING PROVIDER: Dr. Can Date of Consult: 11/14/17 Magnolia Fisher is a 77 year old female was last seen in [facility] by PCP, Dr. Lori Can MD on 12/24/17. Patient is presenting today for f/u pharmacotherapy management appointment for DM. At last PharmD visit the prandial insulin sliding scale was stopped, and prandial insulin was decreased from 16-18-19 to 14 units TID meals to assist with compliance. INTERIM HISTORY: Reports not feeling well today, has URI Was given benzonatate for her cough Moved Novolog pens to the kitchen (from bedroom) - has 3 holders, one for each meal Remembering it much better this way Past DM medications: Metformin - was taken off after she had stones in her pancreatic duct, no ADEs or other issues Current DM Medications: Insulin glargine (Lantus) VIAL 38 units QHS - reports using 30 units QHS Insulin aspart 14 units TID meals - right before each meal Canagliflozin 300mg QAM Current HTN Medications: Losartan 50mg once daily Metoprolol succinate 100mg once daily Preventative Medications: ? On ANGELA/ARB: Yes ? On Statin: Yes ? On ASA: No ROS: ? Patient denies CP, SOB, GARCIA, blurred vision, dizziness or lightheadedness ? Patient denies symptoms of hypoglycemia (sweating, anxiety, palpitations, hunger, and tremor) ? Patient denies symptoms of hyperglycemia (polyuria, polydipsia, polyphagia) ? Patient denies potential medication adverse effects DIET/EXERCISE/SOCIAL Hx: Was eating less during illness ? Breakfast: oatmeal and almond milk or bermudian muffin ? Lunch: vegetable (salad) or ham sandwich ? Dinner: TV dinners ? Snacks: cut out cookies and sweets ? Following Na restrictions: no ? Beverages: orange juice, flavored water no sugar, water MEDICATIONS: ? Pill bottles are not present. ? Adherence: denies missed doses ? [facility]acy[facility] ? Rx coverage: [employer] ? Affordability: insulin and Invokana most expensive (reports that [facility] reimburses patient) ? Diabetes supplies: Accu Chek Lenore ? Organization System: none ACTIVE PROBLEM LIST Myalgia and Myositis, Unspecified Mixed Hyperlipidemia Essential Hypertension Obesity, Unspecified Degeneration of Cervical Intervertebral Disc Diabetes Mellitus (Hcc) Cervical radiculopathy Esophageal Reflux Retinal Hemorrhage Disorder of Bone and Cartilage, Unspecified Acute Gastritis Without Mention of Hemorrhage Diaphragmatic Hernia Without Mention of Obstruction Or Gangrene Depression Sleep Apnea Choledocholithiasis Chronic Cholecystitis Gastroparesis PAST MEDICAL HISTORY Diagnosis Date - Acute gastritis without mention of hemorrhage - Asthma - Coronary atherosclerosis of unspecified type of vessel, [place] or graft - Depression - Diaphragmatic hernia without mention of obstruction or gangrene - Esophageal reflux 07/29/2006 - Hypersomnia with sleep apnea, unspecified - Irritable bowel syndrome - Localized osteoarthrosis not specified whether primary or secondary, unspecified site - Myalgia and myositis, unspecified - Obesity, unspecified - Obstructive sleep apnea - Other and unspecified hyperlipidemia - Other specified gastritis - Retinal hemorrhage 02/27/2007 Dr. Yu - Type II or unspecified type diabetes mellitus without mention of complication, uncontrolled - Unspecified essential hypertension ALLERGIES Allergen Reactions - Lisinopril Cough Resolved after stopped medication - Seasonal Allergies Other: See Comments wheezing Medication List Medication Directions Comments Action/Plan albuterol HFA (PROAIR HFA) 90 mcg/actuation inhaler Inhale 2 Puffs as instructed every 4 hours as needed. atorvastatin (LIPITOR) 10 mg tablet Take 1 tablet by mouth once daily. BD INSULIN SYRINGE UF II 1/2 mL 31 x 516 syrg USE DIRECTED WITH LANTUS benzonatate (TESSALON PERLE) 100 mg capsule Take 2 capsules by mouth three times daily as needed. blood sugar diagnostic (ACCU-CHEK LENORE PLUS TEST STRP) test strip Test blood sugar(s) 3 times daily. Dx: Type 2 DM - Uncontrolled E11.65 Insulin: Yes Blood-Glucose Meter (ACCU-CHEK LENORE PLUS METER) [facility] Dispense 1 Meter Kit. Dx: E11.65 canagliflozin (INVOKANA) 300 mg tablet Take 1 tablet by mouth daily before breakfast. Cholecalciferol, Vitamin D3, 2,000 unit Tab Take 1 capsule by mouth one time daily insulin aspart U-100 (NOVOLOG FLEXPEN U-100 INSULIN) 100 unit/mL inpn Inject 14 Units subcutaneously three times daily before meals. insulin glargine (LANTUS U-100 INSULIN) 100 unit/mL injection Inject 38 Units subcutaneously once daily. Lancets lancets Test blood sugar(s) 3 times daily. Dx: Type 2 DM - Controlled E11.65 Insulin: Yes loratadine (CLARITIN) 10 mg tablet Take 1 tablet by mouth once daily as needed. FOR ALLERGY SYMPTOMS losartan (COZAAR) 50 mg tablet Take 1 tablet by mouth once daily. metoprolol succinate ER (TOPROL XL) 100 mg Tb24 Take 1 tablet by mouth once daily. ukydazzy-nfp-truh-FA-lutein (CENTRUM SILVER WOMEN) 8 mg iron- 400 mcg-300 mcg tab Take 1 tablet by mouth daily nitroglycerin sublingual (NITROSTAT) 0.4 mg SL tablet Dissolve 1 tablet under the tongue as needed. If no pain relief call 911. Dr. Hoyos. omeprazole (PRILOSEC) 20 mg capsule Take 1 capsule by mouth daily before breakfast. 1/2 hr before meal. vitamin b complex tab Take 1 tablet by mouth once daily. Rx meds not listed in EPIC: none OTCs: none Herbals: none GLYCEMIC CONTROL: ? Glucometer present at visit: No ? SMBG?s: Date Fasting AM 2 hr PP Before Lunch 2 hr PP Before Dinner 2 hr PP Bedtime 01/27 155 220 01/26 130 212 190 270 01/25 130 151 210 01/24 129 01/23 134 229 195 203 01/22 122 140 212 200 01/21 127 147 190 01/20 178 168 350 01/19 133 114 116 01/18 155 208 01/17 124 106 170 117 01/16 118 129 129 118 01/15 202 132 131 94 01/14 154 223 ? Hypoglycemia: one instance, earlier in the month ? How corrected: sugar and protein VITALS: BP 116/57 Pulse 75 Last 3 Encounter BP Readings: Date: BP: 01/20/2018 122/72 12/24/2017 118/72 11/12/2017 126/68 Wt: 74.8 kg (165 lb) BMI: 31.18 kg/(m2) LABS Lab Results Component Value Date HBA1C 8.4 12/20/2017 HBA1C 9.2 11/12/2017 HBA1C 8.8 08/17/2017 CMP: Glucose 109 12/20/2017 BUN 15 12/20/2017 Creatinine 0.67 12/20/2017 Sodium 144 12/20/2017 Potassium 4.4 12/20/2017 Chloride 106 12/20/2017 CO2 24 12/20/2017 Protein, Total 6.7 12/20/2017 Albumin 4.0 12/20/2017 Calcium 9.3 12/20/2017 Alkaline Phosphatase 81 12/20/2017 Bilirubin, Total 0.6 12/20/2017 AST 20 12/20/2017 ALT 14 12/20/2017 GFR > 60 ? Estimated CrCL 67.6 mL/min (calculated using Ht 61, adjusted Wt 59 kg, sCr 0.67 mg/dL, using [place] Gault) Last Lipid Panel Lab Results Component Value Date CHOL 209 12/25/2017 CHOL 151 08/17/2017 Lab Results Component Value Date HDL 52 12/25/2017 HDL 57 08/17/2017 Lab Results Component Value Date LDL 127 12/25/2017 LDL 77 08/17/2017 Lab Results Component Value Date TG 150 12/25/2017 TG 86 08/17/2017 Albumin/Creat Ratio (mg/g) Date Value 08/17/2017 Not calculated PHARMACOTHERAPY ASSESSMENT/PLAN: 1. Type 2 diabetes mellitus without complication, with long- term current use of insulin (HCC) - ICD9: 250.00, V58.67, ICD10: E11.9, Z79.4 (primary diagnosis) A1c goal < 7%, patient is not at goal (8.4% on 12/20). Could consider goal < 8% given age. FBGs at goal and PPBGs not at goal but much improved since improved compliance with prandial insulin. Discussed re-starting metformin and patient is willing. will start at low dose for tolerability and to avoid increased confusion for patient. Patient taking less than prescribed basal insulin dose, but appropriate to continue while titrating emtformin. Continue basal and prandial doses at this time. Renal fxn and LFTs WNL and appropriate for continued therapy ? START metformin ER 500mg once daily ? CONTINUE Lantus 30 units QHS, Novolog 14 units TID meals, and Invokana 300mg daily ? Instructed patient continue checking FBGs and PPBGs 3x daily 2. Mixed hyperlipidemia - ICD9: 272.2, ICD10: E78.2 Pt is on moderate statin intensity (inidicated for high intensity d/t DM and ASCVD risk score > 7.5%). Patient compliant with and tolerating current regimen. Appropriate to increase at this time. LFTs and renal fxn WNL and appropriate for continued therapy ? INCREASE atorvastatin to 40mg daily ? Instructed patient to report any muscle pain Health Maintenance issues addressed: DILATED RETINAL EXAM due on 02/07/2018 Patient is scheduled to see PCP 04/28/18. Patient to return to clinic for PharmD f/u on 03/03. Patient verbalized understanding of instructions. Mali Dawson, PharmD, BCPS CNOV Observed: 01/27/2018 Status: COMPLETED Source: [place] 1:00 PM [facility] REPOSITORY Office Visit ([facility]ME[facility]) MAGNOLIA FISHER ([id number]) 1940 F BLD Date Time Provider Department 01/27/18 1:00 PM SAMIR (PHARMACIST)MALI During your visit today, we recorded the following information about you: Pulse Blood pressure 75/minute 116/57 MALI DAWSON, PHARMACIST 01/27/2018 3:33 PM Signed Patient consents to pharmacy collaborative practice agreement. REASON FOR CONSULT: DM GOALS: A1c < 7% CONSULTING PROVIDER: Dr. Can Date of Consult: 11/14/17 Magnolia Fisher is a 77 year old female was last seen in [facility] by PCP, Dr. Lori Can MD on 12/24/17. Patient is presenting today for f/u pharmacotherapy management appointment for DM. At last PharmD visit the prandial insulin sliding scale was stopped, and prandial insulin was decreased from 16-18-19 to 14 units TID meals to assist with compliance. INTERIM HISTORY: Reports not feeling well today, has URI Was given benzonatate for her cough Moved Novolog pens to the kitchen (from bedroom) - has 3 holders, one for each meal Remembering it much better this way Past DM medications: Metformin - was taken off after she had stones in her pancreatic duct, no ADEs or other issues Current DM Medications: Insulin glargine (Lantus) VIAL 38 units QHS - reports using 30 units QHS Insulin aspart 14 units TID meals - right before each meal Canagliflozin 300mg QAM Current HTN Medications: Losartan 50mg once daily Metoprolol succinate 100mg once daily Preventative Medications: ? On ANGELA/ARB: Yes ? On Statin: Yes ? On ASA: No ROS: ? Patient denies CP, SOB, GARCIA, blurred vision, dizziness or lightheadedness ? Patient denies symptoms of hypoglycemia (sweating, anxiety, palpitations, hunger, and tremor) ? Patient denies symptoms of hyperglycemia (polyuria, polydipsia, polyphagia) ? Patient denies potential medication adverse effects DIET/EXERCISE/SOCIAL Hx: Was eating less during illness ? Breakfast: oatmeal and almond milk or bermudian muffin ? Lunch: vegetable (salad) or ham sandwich ? Dinner: TV dinners ? Snacks: cut out cookies and sweets ? Following Na restrictions: no ? Beverages: orange juice, flavored water no sugar, water MEDICATIONS: ? Pill bottles are not present. ? Adherence: denies missed doses ? Pharmacy: [facility] ? Rx coverage: [employer] ? Affordability: insulin and Invokana most expensive (reports that [facility] reimburses patient) ? Diabetes supplies: Accu Chek Lenore ? Organization System: none ACTIVE PROBLEM LIST Myalgia and Myositis, Unspecified Mixed Hyperlipidemia Essential Hypertension Obesity, Unspecified Degeneration of Cervical Intervertebral Disc Diabetes Mellitus (Hcc) Cervical radiculopathy Esophageal Reflux Retinal Hemorrhage Disorder of Bone and Cartilage, Unspecified Acute Gastritis Without Mention of Hemorrhage Diaphragmatic Hernia Without Mention of Obstruction Or Gangrene Depression Sleep Apnea Choledocholithiasis Chronic Cholecystitis Gastroparesis PAST MEDICAL HISTORY Diagnosis Date - Acute gastritis without mention of hemorrhage - Asthma - Coronary atherosclerosis of unspecified type of vessel, [place] or graft - Depression - Diaphragmatic hernia without mention of obstruction or gangrene - Esophageal reflux 07/29/2006 - Hypersomnia with sleep apnea, unspecified - Irritable bowel syndrome - Localized osteoarthrosis not specified whether primary or secondary, unspecified site - Myalgia and myositis, unspecified - Obesity, unspecified - Obstructive sleep apnea - Other and unspecified hyperlipidemia - Other specified gastritis - Retinal hemorrhage 02/27/2007 Dr. Yu - Type II or unspecified type diabetes mellitus without mention of complication, uncontrolled - Unspecified essential hypertension ALLERGIES Allergen Reactions - Lisinopril Cough Resolved after stopped medication - Seasonal Allergies Other: See Comments wheezing Medication List Medication Directions Comments Action/Plan albuterol HFA (PROAIR HFA) 90 mcg/actuation inhaler Inhale 2 Puffs as instructed every 4 hours as needed. atorvastatin (LIPITOR) 10 mg tablet Take 1 tablet by mouth once daily. BD INSULIN SYRINGE UF II 1/2 mL 31 x 5/16 syrg USE DIRECTED WITH LANTUS benzonatate (TESSALON PERLE) 100 mg capsule Take 2 capsules by mouth three times daily as needed. blood sugar diagnostic (ACCU-CHEK LENORE PLUS TEST STRP) test strip Test blood sugar(s) 3 times daily. Dx: Type 2 DM - Uncontrolled E11.65 Insulin: Yes Blood-Glucose Meter (ACCU-CHEK LENORE PLUS METER) [facility] Dispense 1 Meter Kit. Dx: E11.65 canagliflozin (INVOKANA) 300 mg tablet Take 1 tablet by mouth daily before breakfast. Cholecalciferol, Vitamin D3, 2,000 unit Tab Take 1 capsule by mouth one time daily insulin aspart U-100 (NOVOLOG FLEXPEN U-100 INSULIN) 100 unit/mL inpn Inject 14 Units subcutaneously three times daily before meals. insulin glargine (LANTUS U-100 INSULIN) 100 unit/mL injection Inject 38 Units subcutaneously once daily. Lancets lancets Test blood sugar(s) 3 times daily. Dx: Type 2 DM - Controlled E11.65 Insulin: Yes loratadine (CLARITIN) 10 mg tablet Take 1 tablet by mouth once daily as needed. FOR ALLERGY SYMPTOMS losartan (COZAAR) 50 mg tablet Take 1 tablet by mouth once daily. metoprolol succinate ER (TOPROL XL) 100 mg Tb24 Take 1 tablet by mouth once daily. jngoipze-rrg-tpyq-FA-lutein (CENTRUM SILVER WOMEN) 8 mg iron- 400 mcg-300 mcg tab Take 1 tablet by mouth daily nitroglycerin sublingual (NITROSTAT) 0.4 mg SL tablet Dissolve 1 tablet under the tongue as needed. If no pain relief call 911. Dr. Hoyos. omeprazole (PRILOSEC) 20 mg capsule Take 1 capsule by mouth daily before breakfast. 1/2 hr before meal. vitamin b complex tab Take 1 tablet by mouth once daily. Rx meds not listed in EPIC: none OTCs: none Herbals: none GLYCEMIC CONTROL: ? Glucometer present at visit: No ? SMBG?s: Date Fasting AM 2 hr PP Before Lunch 2 hr PP Before Dinner 2 hr PP Bedtime 01/27 155 220 01/26 130 212 190 270 01/25 130 151 210 01/24 129 01/23 134 229 195 203 01/22 122 140 212 200 01/21 127 147 190 01/20 178 168 350 01/19 133 114 116 01/18 155 208 01/17 124 106 170 117 01/16 118 129 129 118 01/15 202 132 131 94 01/14 154 223 ? Hypoglycemia: one instance, earlier in the month ? How corrected: sugar and protein VITALS: BP 116/57 Pulse 75 Last 3 Encounter BP Readings: Date: BP: 01/20/2018 122/72 12/24/2017 118/72 11/12/2017 126/68 Wt: 74.8 kg (165 lb) BMI: 31.18 kg/(m2) LABS Lab Results Component Value Date HBA1C 8.4 12/20/2017 HBA1C 9.2 11/12/2017 HBA1C 8.8 08/17/2017 CMP: Glucose 109 12/20/2017 BUN 15 12/20/2017 Creatinine 0.67 12/20/2017 Sodium 144 12/20/2017 Potassium 4.4 12/20/2017 Chloride 106 12/20/2017 CO2 24 12/20/2017 Protein, Total 6.7 12/20/2017 Albumin 4.0 12/20/2017 Calcium 9.3 12/20/2017 Alkaline Phosphatase 81 12/20/2017 Bilirubin, Total 0.6 12/20/2017 AST 20 12/20/2017 ALT 14 12/20/2017 GFR > 60 ? Estimated CrCL 67.6 mL/min (calculated using Ht 61, adjusted Wt 59 kg, sCr 0.67 mg/dL, using [place] Gault) Last Lipid Panel Lab Results Component Value Date CHOL 209 12/25/2017 CHOL 151 08/17/2017 Lab Results Component Value Date HDL 52 12/25/2017 HDL 57 08/17/2017 Lab Results Component Value Date LDL 127 12/25/2017 LDL 77 08/17/2017 Lab Results Component Value Date TG 150 12/25/2017 TG 86 08/17/2017 Albumin/Creat Ratio (mg/g) Date Value 08/17/2017 Not calculated PHARMACOTHERAPY ASSESSMENT/PLAN: 1. Type 2 diabetes mellitus without complication, with long- term current use of insulin ([facility]) - ICD9: 250.00, V58.67, ICD10: E11.9, Z79.4 (primary diagnosis) A1c goal < 7%, patient is not at goal (8.4% on 12/20). Could consider goal < 8% given age. FBGs at goal and PPBGs not at goal but much improved since improved compliance with prandial insulin. Discussed re-starting metformin and patient is willing. will start at low dose for tolerability and to avoid increased confusion for patient. Patient taking less than prescribed basal insulin dose, but appropriate to continue while titrating emtformin. Continue basal and prandial doses at this time. Renal fxn and LFTs WNL and appropriate for continued therapy ? START metformin ER 500mg once daily ? CONTINUE Lantus 30 units QHS, Novolog 14 units TID meals, and Invokana 300mg daily ? Instructed patient continue checking FBGs and PPBGs 3x daily 2. Mixed hyperlipidemia - ICD9: 272.2, ICD10: E78.2 Pt is on moderate statin intensity (inidicated for high intensity d/t DM and ASCVD risk score > 7.5%). Patient compliant with and tolerating current regimen. Appropriate to increase at this time. LFTs and renal fxn WNL and appropriate for continued therapy ? INCREASE atorvastatin to 40mg daily ? Instructed patient to report any muscle pain Health Maintenance issues addressed: DILATED RETINAL EXAM due on 02/07/2018 Patient is scheduled to see PCP 04/28/18. Patient to return to clinic for PharmD f/u on 03/03. Patient verbalized understanding of instructions. Mali Dawson, PharmD, BCPS MALI DAWSON, PHARMACIST 01/27/2018 1:32 PM Signed Start metformin 1 pill every day Start Lipitor at higher dose Lantus 30 units every day Humalog 14 units with each meal Referring Provider: SELF [[id number]] Allergies As of Date: 01/27/2018 Noted Allergy Reaction LISINOPRIL 06/06/2011 3 - Cough Comments: Resolved after stopped medication SEASONAL ALLERGIES 06/26/2013 14 - Other: See Comments Comments: wheezing Date Reviewed: 01/20/2018 Reviewed by: [facility] Hospital[facility] Pineda - Fully Assessed Reason for Visit: Allied Health Visit [5] Cmt: DM follow-up Primary Visit Diagnosis:Type 2 diabetes mellitus without complication, with long-term current use of insulin (HCC) [E11.9, Z79.4] Other Visit Diagnoses:Essential hypertension [I10] Mixed hyperlipidemia [E78.2] Order(s):insulin glargine (LANTUS U-100 INSULIN) 100 unit/mL injectionInject 30 Units subcutaneously once daily.Disp: Rfl: metFORMIN ER (GLUCOPHAGE XR) 500 mg 24 hr tabletTake 1 tablet by mouth once daily.Disp: 30 tabletRfl: 1 atorvastatin (LIPITOR) 40 mg tabletTake 1 tablet by mouth once daily.Disp: 30 tabletRfl: 1 Prescriptions as of 01/27/2018 Sig: INSULIN GLARGINE (U-100) 100 * Inject 30 Units subcutaneousl* METFORMIN ER 500 MG TABLET,EX* Take 1 tablet by mouth once d* ATORVASTATIN 40 MG TABLET Take 1 tablet by mouth once d* BENZONATATE 100 MG CAPSULE Take 2 capsules by mouth thre* MULTIVIT WITH KYEHYDZP-QVQY-P* Take 1 tablet by mouth daily INSULIN ASPART U-100 100 UNI* Inject 14 Units subcutaneousl* CANAGLIFLOZIN 300 MG TABLET Take 1 tablet by mouth daily * METOPROLOL SUCCINATE ER 100 M* Take 1 tablet by mouth once d* LOSARTAN 50 MG TABLET Take 1 tablet by mouth once d* OMEPRAZOLE 20 MG CAPSULE,ELÍAS* Take 1 capsule by mouth daily* LANCETS Test blood sugar(s) 3 times d* BLOOD SUGAR DIAGNOSTIC STRIPS Test blood sugar(s) 3 times d* BLOOD-GLUCOSE METER Dispense 1 Meter Kit. Dx: E1* BD INSULIN SYRINGE ULT-FINE I* USE DIRECTED WITH LANTUS LORATADINE 10 MG TABLET Take 1 tablet by mouth once d* NITROGLYCERIN 0.4 MG SUBLINGU* Dissolve 1 tablet under the t* VITAMIN B COMPLEX TABLET Take 1 tablet by mouth once d* CHOLECALCIFEROL (VITAMIN D3) * Take 1 capsule by mouth one t* ALBUTEROL SULFATE HFA 90 MCG/* Inhale 2 Puffs as instructed * Problem List As Of Date 01/27/2018 Noted Resolved MYALGIA AND MYOSITIS NOS [[id number]] Mixed hyperlipidemia [E78.2] Essential hypertension [I10] OBESITY NOS [E66.9] CERVICAL DISC DEGEN [M50.30] INVALID FOR* Diabetes mellitus (HCC) [E11.9] INVALID FOR* Cervical radiculopathy [[id number]] INVALID FOR* ESOPHAGEAL REFLUX [K21.9] INVALID FOR* RETINAL HEMORRHAGE [H35.60] INVALID FOR* More... BONE AND CARTILAGE DIS NOS [M89.9, M94.9] INVALID FOR* Acute gastritis without mention of hemorrhage [*INVALID FOR* Diaphragmatic hernia without mention of obstruc*INVALID FOR* Depression [F32.9] INVALID FOR* Sleep apnea [G47.30] INVALID FOR* More... Choledocholithiasis [K80.50] INVALID FOR* Chronic cholecystitis [K81.1] INVALID FOR* Gastroparesis [K31.84] INVALID FOR* Other instructions from your clinician: Start metformin 1 pill every day Start Lipitor at higher dose Lantus 30 units every day Humalog 14 units with each meal Prescriptions ordered this encounter Disp Refills Start End INSULIN GLARGINE (U-100) 100 UNIT/ML* 01/27/2018 Class: Med Update Route: SUBCUTANEOUS Sig: Inject 30 Units subcutaneously once daily. METFORMIN ER 500 MG TABLET,EXTENDED * 30 t* 1 01/27/2018 Route: ORAL Sig: Take 1 tablet by mouth once daily. ATORVASTATIN 40 MG TABLET 30 t* 1 01/27/2018 Cmt: Dose increase Route: ORAL Sig: Take 1 tablet by mouth once daily. Medications Discontinued During This Encounter insulin glargine (LANTUS U-100 INSUL* 12/25/2017 01/27/2018 Class: Med Update Route: SUBCUTANEOUS Sig: Inject 38 Units subcutaneously once daily. Disc: Adjust Sig - Block E-Cancel atorvastatin (LIPITOR) 10 mg tablet 90 t* 3 08/22/2017 01/27/2018 Route: ORAL Sig: Take 1 tablet by mouth once daily. Disc: Reason for discontinue is not on file. Encounter Status:Closed by SMAIR (PHARMACIST)MALI on 01/27/18 PROGRESS Observed: 01/20/2018 Status: COMPLETED Source: [place] 9:32 AM [facility] REPOSITORY HNO ID: [id number] Author: Chino Daniels) Service: (none) Author Type: Nurse Practitioner Type: Progress Notes Filed: 01/20/2018 10:23 AM Note Text: Subjective HPI HPI Magnolia Fisher is a 77 year old female who presents today for CC of cough, nasal congestion, sore throat. This started 3 days ago. Has tried mucinex. Symptoms are worsened by nothing. Risk factors multiple sick exposures, patient diabetic sugars up/down currently, otherwise controlled. nonsmoker. Having body aches. .Patient presents with: Chest Congestion: head congestion, nasal drainage, cough, sore throat and headache x 3 days PAST MEDICAL HISTORY Diagnosis Date - Acute gastritis without mention of hemorrhage - Asthma - Coronary atherosclerosis of unspecified type of vessel, [place] or graft - Depression - Diaphragmatic hernia without mention of obstruction or gangrene - Esophageal reflux 07/29/2006 - Hypersomnia with sleep apnea, unspecified - Irritable bowel syndrome - Localized osteoarthrosis not specified whether primary or secondary, unspecified site - Myalgia and myositis, unspecified - Obesity, unspecified - Obstructive sleep apnea - Other and unspecified hyperlipidemia - Other specified gastritis - Retinal hemorrhage 02/27/2007 Dr. Yu - Type II or unspecified type diabetes mellitus without mention of complication, uncontrolled - Unspecified essential hypertension PAST SURGICAL HISTORY Procedure Laterality Date - APPENDECTOMY - BMD BONE DENSITY 12/2003 - BREAST BIOPSY - CABG, MIN INV, 2 ARTERL GRFT 2002 - DELIVERY ONLY , low cervical - CHOLECYSTECTOMY 03/27/2012 laproscopic, Dr. Walters - COLONOSCOP W/ OR W/O [facility] SPEC 08/23/2003 Colonoscopy - COLONOSCOP W/ OR W/O [facility] SPEC 06/10/2014 Colonoscopy - EGD W/O [facility] SPECIMEN W/BX 04/04/10 - ERCP W/O BRUSH/WASH SPECIMEN 03/28/12 Cholangiopancreatography (ERCP) inpt [facility] - HEART SURGERY HX - KNEE SCOPE,DIAGNOSTIC Arthroscopy, knee LEFT - LAP CHOLECYSTECT/CHOLANGIOGRAPHY 03-27-12 - LEFT HEART CATH,PERCUTANEOUS Cardiac cath, L heart - PAST SURGICAL HISTORY OF 05/2009 Right Rotator Cuff Repair Surgery - TOTAL ABDOM HYSTERECTOMY Hysterectomy, MIKO ALLERGIES Lisinopril; Seasonal Allergies MEDICATIONS xpjgamil-jdl-xlud-FA-lutein (CENTRUM SILVER WOMEN) 8 mg iron- 400 mcg-300 mcg tab Take 1 tablet by mouth daily insulin aspart U-100 (NOVOLOG FLEXPEN U-100 INSULIN) 100 unit/mL inpn Inject 14 Units subcutaneously three times daily before meals. insulin glargine (LANTUS U-100 INSULIN) 100 unit/mL injection Inject 38 Units subcutaneously once daily. canagliflozin (INVOKANA) 300 mg tablet Take 1 tablet by mouth daily before breakfast. metoprolol succinate ER (TOPROL XL) 100 mg Tb24 Take 1 tablet by mouth once daily. losartan (COZAAR) 50 mg tablet Take 1 tablet by mouth once daily. atorvastatin (LIPITOR) 10 mg tablet Take 1 tablet by mouth once daily. omeprazole (PRILOSEC) 20 mg capsule Take 1 capsule by mouth daily before breakfast. 1/2 hr before meal. Lancets lancets Test blood sugar(s) 3 times daily. Dx: Type 2 DM - Controlled E11.65 Insulin: Yes blood sugar diagnostic (ACCU-CHEK LENORE PLUS TEST STRP) test strip Test blood sugar(s) 3 times daily. Dx: Type 2 DM - Uncontrolled E11.65 Insulin: Yes Blood-Glucose Meter (ACCU-CHEK LENORE PLUS METER) [facility] Dispense 1 Meter Kit. Dx: E11.65 BD INSULIN SYRINGE UF II 1/2 mL 31 x 5/16 syrg USE DIRECTED WITH LANTUS loratadine (CLARITIN) 10 mg tablet Take 1 tablet by mouth once daily as needed. FOR ALLERGY SYMPTOMS nitroglycerin sublingual (NITROSTAT) 0.4 mg SL tablet Dissolve 1 tablet under the tongue as needed. If no pain relief call 911. Dr. Hoyos. vitamin b complex tab Take 1 tablet by mouth once daily. Cholecalciferol, Vitamin D3, 2,000 unit Tab Take 1 capsule by mouth one time daily albuterol HFA (PROAIR HFA) 90 mcg/actuation inhaler Inhale 2 Puffs as instructed every 4 hours as needed. FAMILY HISTORY Problem Relation Age of Onset - COPD Mother - other (CHF [Other]) Mother - COPD Father - other (LUNG CANCER [Other]) Brother - Emphysema Brother - other (DIVERTICULITIS [Other]) Sister - other (Abdominal aneurysm [Other]) Father - other (Thoracic aneurysm [Other]) Sister - other (Abdominal aneurysm [Other]) Brother - other (Abdominal aneurysm [Other]) Sister - Thyroid Other 6 family member with thyroid issues (hyperthyroidism, cancer,hypothyroidism) Social History Substance Use Topics - Smoking status: Former Smoker - Smokeless tobacco: Never Used - Alcohol use No Review of Systems Constitutional: Positive for chills. Negative for fever and weight loss. HENT: Positive for congestion and sore throat. Negative for ear pain and nosebleeds. Respiratory: Positive for cough. Negative for shortness of breath and wheezing. Musculoskeletal: Negative for neck pain. Skin: Negative for itching and rash. Objective Blood pressure 122/72, pulse 66, temperature 36.6 ?C (97.9 ?F), temperature source Tympanic, resp. rate 16, weight 74.8 kg (165 lb), SpO2 98 %. Physical Exam Constitutional: She is oriented to person, place, and time and well-developed, well-nourished, and in no distress. Non-toxic appearance. She does not have a sickly appearance. No distress. HENT: Head: Normocephalic and atraumatic. Right Ear: Hearing, tympanic membrane, external ear and ear canal normal. Left Ear: Hearing, tympanic membrane, external ear and ear canal normal. Nose: Nose normal. Mouth/Throat: Uvula is midline, oropharynx is clear and moist and mucous membranes are normal. Eyes: Pupils are equal, round, and reactive to light. Conjunctivae and lids are normal. Right eye exhibits no discharge. Left eye exhibits no discharge. No scleral icterus. Neck: Trachea normal and normal range of motion. Neck supple. Cardiovascular: Normal rate, regular rhythm and normal heart sounds. Pulmonary/Chest: Effort normal and breath sounds normal. Lymphadenopathy: She has no cervical adenopathy. Neurological: She is alert and oriented to person, place, and time. Skin: No rash noted. She is not diaphoretic. ASSESSMENT/PLAN: 1. URI with cough and congestion - ICD9: 465.9, ICD10: J06.9 - Discussed viral etiology and rationale for treatment. - Symptomatic treatment with prn analgesia - Supportive care with fluids and rest - Follow up in 3-5 days if symptoms persist or sooner if worsening of symptoms - BENZONATATE 100 MG CAPSULE Prescription instructions reviewed with patient as applicable. Patient advised if symptoms do not improve or if symptoms worsen sooner, to contact the office for further evaluation by their primary care physician. Potential red flag symptoms discussed with the patient. Reviewed appropriate action plan to take if red flag symptoms occur. Patient agreeable to treatment plan. Chino Pineda APRN.CNP CNOV Observed: 01/20/2018 Status: COMPLETED Source: [place] 9:30 AM [facility] REPOSITORY Office Visit ([facility]) PHILLIP,MAGNOLIA Cooper ([id number]) 1940 F BLD Date Time Provider Department 01/20/18 9:30 AM CHINO PINEDA (CHARLES) [facility] During your visit today, we recorded the following information about you: Temperature Pulse Respiration Blood pressure 97.9 degrees 66/minute 16/minute 122/72 Weight 74.8 kg Chino Pineda APRN.CNP 01/20/2018 10:23 AM Signed Subjective HPI HPI Magnolia Cooper Phillip is a 77 year old female who presents today for CC of cough, nasal congestion, sore throat. This started 3 days ago. Has tried mucinex. Symptoms are worsened by nothing. Risk factors multiple sick exposures, patient diabetic sugars up/down currently, otherwise controlled. nonsmoker. Having body aches. .Patient presents with: Chest Congestion: head congestion, nasal drainage, cough, sore throat and headache x 3 days PAST MEDICAL HISTORY Diagnosis Date - Acute gastritis without mention of hemorrhage - Asthma - Coronary atherosclerosis of unspecified type of vessel, [place] or graft - Depression - Diaphragmatic hernia without mention of obstruction or gangrene - Esophageal reflux 07/29/2006 - Hypersomnia with sleep apnea, unspecified - Irritable bowel syndrome - Localized osteoarthrosis not specified whether primary or secondary, unspecified site - Myalgia and myositis, unspecified - Obesity, unspecified - Obstructive sleep apnea - Other and unspecified hyperlipidemia - Other specified gastritis - Retinal hemorrhage 02/27/2007 Dr. Yu - Type II or unspecified type diabetes mellitus without mention of complication, uncontrolled - Unspecified essential hypertension PAST SURGICAL HISTORY Procedure Laterality Date - APPENDECTOMY - BMD BONE DENSITY 12/2003 - BREAST BIOPSY - CABG, MIN INV, 2 ARTERL GRFT 2002 - DELIVERY ONLY , low cervical - CHOLECYSTECTOMY 03/27/2012 laproscopic, Dr. Walters - COLONOSCOP W/ OR W/O [facility] SPEC 08/23/2003 Colonoscopy - COLONOSCOP W/ OR W/O [facility] SPEC 06/10/2014 Colonoscopy - EGD W/O [facility] SPECIMEN W/BX 04/04/10 - ERCP W/O BRUSH/WASH SPECIMEN [facility] - KNEE SCOPE,DIAGNOSTIC Arthroscopy, knee LEFT - LAP CHOLECYSTECT/CHOLANGIOGRAPHY 03-27-12 - LEFT HEART CATH,PERCUTANEOUS Cardiac cath, L heart - PAST SURGICAL HISTORY OF 05/2009 Right Rotator Cuff Repair Surgery - TOTAL ABDOM HYSTERECTOMY Hysterectomy, MIKO ALLERGIES Lisinopril; Seasonal Allergies MEDICATIONS jfpljfdl-auj-wfzy-FA-lutein (CENTRUM SILVER WOMEN) 8 mg iron- 400 mcg-300 mcg tab Take 1 tablet by mouth daily insulin aspart U-100 (NOVOLOG FLEXPEN U-100 INSULIN) 100 unit/mL inpn Inject 14 Units subcutaneously three times daily before meals. insulin glargine (LANTUS U-100 INSULIN) 100 unit/mL injection Inject 38 Units subcutaneously once daily. canagliflozin (INVOKANA) 300 mg tablet Take 1 tablet by mouth daily before breakfast. metoprolol succinate ER (TOPROL XL) 100 mg Tb24 Take 1 tablet by mouth once daily. losartan (COZAAR) 50 mg tablet Take 1 tablet by mouth once daily. atorvastatin (LIPITOR) 10 mg tablet Take 1 tablet by mouth once daily. omeprazole (PRILOSEC) 20 mg capsule Take 1 capsule by mouth daily before breakfast. 1/2 hr before meal. Lancets lancets Test blood sugar(s) 3 times daily. Dx: Type 2 DM - Controlled .65 Insulin: Yes blood sugar diagnostic (ACCU-CHEK LENORE PLUS TEST STRP) test strip Test blood sugar(s) 3 times daily. Dx: Type 2 DM - Uncontrolled E11.65 Insulin: Yes Blood-Glucose Meter (ACCU-CHEK LENORE PLUS METER) [facility] Dispense 1 Meter Kit. Dx: E11. BD INSULIN SYRINGE UF II 1/2 mL 31 x 5/16 syrg USE DIRECTED WITH LANTUS loratadine (CLARITIN) 10 mg tablet Take 1 tablet by mouth once daily as needed. FOR ALLERGY SYMPTOMS nitroglycerin sublingual (NITROSTAT) 0.4 mg SL tablet Dissolve 1 tablet under the tongue as needed. If no pain relief call 911. Dr. Hoyos. vitamin b complex tab Take 1 tablet by mouth once daily. Cholecalciferol, Vitamin D3, 2,000 unit Tab Take 1 capsule by mouth one time daily albuterol HFA (PROAIR HFA) 90 mcg/actuation inhaler Inhale 2 Puffs as instructed every 4 hours as needed. FAMILY HISTORY Problem Relation Age of Onset - COPD Mother - other (CHF [Other]) Mother - COPD Father - other (LUNG CANCER [Other]) Brother - Emphysema Brother - other (DIVERTICULITIS [Other]) Sister - other (Abdominal aneurysm [Other]) Father - other (Thoracic aneurysm [Other]) Sister - other (Abdominal aneurysm [Other]) Brother - other (Abdominal aneurysm [Other]) Sister - Thyroid Other 6 family member with thyroid issues (hyperthyroidism, cancer,hypothyroidism) Social History Substance Use Topics - Smoking status: Former Smoker - Smokeless tobacco: Never Used - Alcohol use No Review of Systems Constitutional: Positive for chills. Negative for fever and weight loss. HENT: Positive for congestion and sore throat. Negative for ear pain and nosebleeds. Respiratory: Positive for cough. Negative for shortness of breath and wheezing. Musculoskeletal: Negative for neck pain. Skin: Negative for itching and rash. Objective Blood pressure 122/72, pulse 66, temperature 36.6 ?C (97.9 ?F), temperature source Tympanic, resp. rate 16, weight 74.8 kg (165 lb), SpO2 98 %. Physical Exam Constitutional: She is oriented to person, place, and time and well-developed, well-nourished, and in no distress. Non-toxic appearance. She does not have a sickly appearance. No distress. HENT: Head: Normocephalic and atraumatic. Right Ear: Hearing, tympanic membrane, external ear and ear canal normal. Left Ear: Hearing, tympanic membrane, external ear and ear canal normal. Nose: Nose normal. Mouth/Throat: Uvula is midline, oropharynx is clear and moist and mucous membranes are normal. Eyes: Pupils are equal, round, and reactive to light. Conjunctivae and lids are normal. Right eye exhibits no discharge. Left eye exhibits no discharge. No scleral icterus. Neck: Trachea normal and normal range of motion. Neck supple. Cardiovascular: Normal rate, regular rhythm and normal heart sounds. Pulmonary/Chest: Effort normal and breath sounds normal. Lymphadenopathy: She has no cervical adenopathy. Neurological: She is alert and oriented to person, place, and time. Skin: No rash noted. She is not diaphoretic. ASSESSMENT/PLAN: 1. URI with cough and congestion - ICD9: 465.9, ICD10: J06.9 - Discussed viral etiology and rationale for treatment. - Symptomatic treatment with prn analgesia - Supportive care with fluids and rest - Follow up in 3-5 days if symptoms persist or sooner if worsening of symptoms - BENZONATATE 100 MG CAPSULE Prescription instructions reviewed with patient as applicable. Patient advised if symptoms do not improve or if symptoms worsen sooner, to contact the office for further evaluation by their primary care physician. Potential red flag symptoms discussed with the patient. Reviewed appropriate action plan to take if red flag symptoms occur. Patient agreeable to treatment plan. Chino Pineda APRN.CHARLES Pineda APRN.CHARLES 01/20/2018 9:47 AM Signed RESPIRATORY INFECTION GENERAL INFORMATION: An upper respiratory tract infection, or cold, is a viral infection of the airway passages. It can be caused by any one of almost 200 different viruses. Common symptoms include a runny or stuffy nose, sneezing, watery eyes, sore throat, cough, and slight fever. Colds are contagious, especially during the first 3 or 4 days and cannot be cured by antibiotics. They are spread by coughs, sneezes, and direct contact, especially [id number]-zuav. A respiratory tract infection usually clears up in a few days, but some people may be sick for a week or two. INSTRUCTIONS: 1. Be careful not to blow your nose too hard because this may cause a nosebleed. 2. Use a cool-mist humidifier (vaporizer) to increase air moisture. This will make it easier for you to breathe. Do not use hot steam. 3. Rest as much as possible and get plenty of sleep. 4. Wash your hands often, especially after you blow your nose. Cover your mouth and nose with a tissue when you sneeze or cough. 5. Drink plenty of clear fluids (8 glasses a day) such as water, fruit juice, tea, clear soups, and carbonated beverages. CONTACT YOUR DOCTOR IF : 1. Your fever lasts more than 3 days. 2. You have a sore throat that gets worse or you see white or yellow spots in your throat. 3. Your cough gets worse or lasts more than 10 days. 4. You develop a rash anywhere on your skin. 5. You have an earache or a headache. 6. You have thick greenish or yellowish discharge from your nose. RETURN IMMEDIATELY IF: 1. You cough up thick yellow, green, garza, or bloody sputum. 2. You have difficulty breathing, pain in your chest, or your skin or nails look garza or blue. 3. You have shaking chills or a temperature over 102 F (39 C). Referring Provider: SELF [200] Allergies As of Date: 01/20/2018 Noted Allergy Reaction LISINOPRIL 06/06/2011 3 - Cough Comments: Resolved after stopped medication SEASONAL ALLERGIES 06/26/2013 14 - Other: See Comments Comments: wheezing Date Reviewed: 01/20/2018 Reviewed by: Chino Pineda - Fully Assessed Reason for Visit: Chest Congestion [236] Cmt: head congestion, nasal drainage, cough, sore throat and headache x 3 days Primary Visit Diagnosis:URI with cough and congestion [J06.9] Order(s):benzonatate (TESSALON PERLE) 100 mg capsuleTake 2 capsules by mouth three times daily as needed.Disp: 30 capsuleRfl: 0 Prescriptions as of 01/20/2018 Sig: MULTIVIT WITH [id number]-N* Take 1 tablet by mouth daily INSULIN ASPART U-100 100 UNI* Inject 14 Units subcutaneousl* INSULIN GLARGINE (U-100) 100 * Inject 38 Units subcutaneousl* CANAGLIFLOZIN 300 MG TABLET Take 1 tablet by mouth daily * METOPROLOL SUCCINATE ER 100 M* Take 1 tablet by mouth once d* LOSARTAN 50 MG TABLET Take 1 tablet by mouth once d* ATORVASTATIN 10 MG TABLET Take 1 tablet by mouth once d* OMEPRAZOLE 20 MG CAPSULE,ELÍAS* Take 1 capsule by mouth daily* LANCETS Test blood sugar(s) 3 times d* BLOOD SUGAR DIAGNOSTIC STRIPS Test blood sugar(s) 3 times d* BLOOD-GLUCOSE METER Dispense 1 Meter Kit. Dx: E1* BD INSULIN SYRINGE ULT-FINE I* USE DIRECTED WITH LANTUS LORATADINE 10 MG TABLET Take 1 tablet by mouth once d* NITROGLYCERIN 0.4 MG SUBLINGU* Dissolve 1 tablet under the t* VITAMIN B COMPLEX TABLET Take 1 tablet by mouth once d* CHOLECALCIFEROL (VITAMIN D3) * Take 1 capsule by mouth one t* ALBUTEROL SULFATE HFA 90 MCG/* Inhale 2 Puffs as instructed * BENZONATATE 100 MG CAPSULE Take 2 capsules by mouth thre* Problem List As Of Date 01/20/2018 Noted Resolved MYALGIA AND MYOSITIS NOS [[id number]] Mixed hyperlipidemia [E78.2] Essential hypertension [I10] OBESITY NOS [E66.9] CERVICAL DISC DEGEN [M50.30] INVALID FOR* Diabetes mellitus (HCC) [E11.9] INVALID FOR* Cervical radiculopathy [[id number]] INVALID FOR* ESOPHAGEAL REFLUX [K21.9] INVALID FOR* RETINAL HEMORRHAGE [H35.60] INVALID FOR* More... BONE AND CARTILAGE DIS NOS [M89.9, M94.9] INVALID FOR* Acute gastritis without mention of hemorrhage [*INVALID FOR* Diaphragmatic hernia without mention of obstruc*INVALID FOR* Depression [F32.9] INVALID FOR* Sleep apnea [G47.30] INVALID FOR* More... Choledocholithiasis [K80.50] INVALID FOR* Chronic cholecystitis [K81.1] INVALID FOR* Gastroparesis [K31.84] INVALID FOR* Other instructions from your clinician: RESPIRATORY INFECTION GENERAL INFORMATION: An upper respiratory tract infection, or cold, is a viral infection of the airway passages. It can be caused by any one of almost 200 different viruses. Common symptoms include a runny or stuffy nose, sneezing, watery eyes, sore throat, cough, and slight fever. Colds are contagious, especially during the first 3 or 4 days and cannot be cured by antibiotics. They are spread by coughs, sneezes, and direct contact, especially [id number]. A respiratory tract infection usually clears up in a few days, but some people may be sick for a week or two. INSTRUCTIONS: 1. Be careful not to blow your nose too hard because this may cause a nosebleed. 2. Use a cool-mist humidifier (vaporizer) to increase air moisture. This will make it easier for you to breathe. Do not use hot steam. 3. Rest as much as possible and get plenty of sleep. 4. Wash your hands often, especially after you blow your nose. Cover your mouth and nose with a tissue when you sneeze or cough. 5. Drink plenty of clear fluids (8 glasses a day) such as water, fruit juice, tea, clear soups, and carbonated beverages. CONTACT YOUR DOCTOR IF : 1. Your fever lasts more than 3 days. 2. You have a sore throat that gets worse or you see white or yellow spots in your throat. 3. Your cough gets worse or lasts more than 10 days. 4. You develop a rash anywhere on your skin. 5. You have an earache or a headache. 6. You have thick greenish or yellowish discharge from your nose. RETURN IMMEDIATELY IF: 1. You cough up thick yellow, green, garza, or bloody sputum. 2. You have difficulty breathing, pain in your chest, or your skin or nails look garza or blue. 3. You have shaking chills or a temperature over 102 F (39 C). Prescriptions ordered this encounter Disp Refills Start End BENZONATATE 100 MG CAPSULE 30 c* 0 01/20/2018 Route: ORAL Sig: Take 2 capsules by mouth three times daily as needed. Encounter Status:Closed by CHINO PINEDA CNP on 01/20/18 PROGRESS Observed: 12/25/2017 Status: COMPLETED Source: [place] 9:00 AM [facility] REPOSITORY [facility] ID: [id number] Author: Mali Dawson (Pharmacist) Service: (none) Author Type: Pharmacist Type: Progress Notes Filed: 12/25/2017 10:08 AM Note Text: Patient consents to pharmacy collaborative practice agreement. REASON FOR CONSULT: DM GOALS: A1c < 7% CONSULTING PROVIDER: Mi PETERSON (will need updated consult filed by PCP) Date of Consult: 11/14/17 Magnolia Fisher is a 77 year old female was last seen in [facility] by PCP, Dr. Lori Can MD on 12/24/17. Patient is presenting today for initial pharmacotherapy management appointment for DM. At last PCP visit no medication changes were made. INTERIM HISTORY: Patient reported to PCP yesterday that she was having lows last week, so she self-decreased her prandial insulin by 1 unit Patient reports Invokana was stopped in August due to elevated liver enzymes, but was re-start about a month ago Did have a low sugar last night (60 mg/dL), got shaky, her dog woke her up, did take glucose tablets to correct this Current DM Medications: Insulin glargine (Lantus) VIAL 38 units QHS (keeps vials in fridge -- keeps the vials she is using out of the fridge - no more than 28 days) Insulin aspart -- (reports plus sliding scale) is taking it right before the meal -- keeps the Novolog pen in her bedroom Canagliflozin 300mg QAM Current HTN Medications: Losartan 50mg once daily Metoprolol succinate 100mg once daily Preventative Medications: ? On ANGELA/ARB: Yes ? On Statin: No - stopped d/t elevated liver enzymes, will re-start ? On ASA: No ROS: ? Patient denies CP, SOB, GARCIA, blurred vision, dizziness or lightheadedness ? Patient denies symptoms of hypoglycemia (sweating, anxiety, palpitations, hunger, and tremor) ? Patient denies symptoms of hyperglycemia (polyuria, polydipsia, polyphagia) ? Patient denies potential medication adverse effects DIET/EXERCISE/SOCIAL Hx: ? Breakfast: oatmeal and almond milk or bermudian muffin ? Lunch: vegetable (salad) or ham sandwich ? Dinner: TV dinners ? Snacks: in the afternoon, cookie ? Following Na restrictions: no ? Beverages: orange juice, flavored water no sugar, water MEDICATIONS: ? Pill bottles are not present. ? Adherence: reports missed doses of Novolog with lunch and dinner, since she keeps it in her bedroom, she does not always get to take the meal time injection in time ? Pharmacy: [facility] ? Rx coverage: [employer] ? Affordability: insulin and Invokana most expensive (reports that [facility] PERS reimburses patient) ? Diabetes supplies: [employer] ? Organization System: none ACTIVE PROBLEM LIST Myalgia and Myositis, Unspecified Mixed Hyperlipidemia Essential Hypertension Obesity, Unspecified Degeneration of Cervical Intervertebral Disc Diabetes Mellitus (Hcc) Cervical radiculopathy Esophageal Reflux Retinal Hemorrhage Disorder of Bone and Cartilage, Unspecified Acute Gastritis Without Mention of Hemorrhage Diaphragmatic Hernia Without Mention of Obstruction Or Gangrene Depression Sleep Apnea Choledocholithiasis Chronic Cholecystitis Gastroparesis PAST MEDICAL HISTORY Diagnosis Date - Acute gastritis without mention of hemorrhage - Asthma - Coronary atherosclerosis of unspecified type of vessel, [place] or graft - Depression - Diaphragmatic hernia without mention of obstruction or gangrene - Esophageal reflux 07/29/2006 - Hypersomnia with sleep apnea, unspecified - Irritable bowel syndrome - Localized osteoarthrosis not specified whether primary or secondary, unspecified site - Myalgia and myositis, unspecified - Obesity, unspecified - Obstructive sleep apnea - Other and unspecified hyperlipidemia - Other specified gastritis - Retinal hemorrhage 02/27/2007 Dr. Yu - Type II or unspecified type diabetes mellitus without mention of complication, uncontrolled - Unspecified essential hypertension ALLERGIES Allergen Reactions - Lisinopril Cough Resolved after stopped medication - Seasonal Allergies Other: See Comments wheezing Medication List Medication Directions Comments Action/Plan albuterol HFA (PROAIR HFA) 90 mcg/actuation inhaler Inhale 2 Puffs as instructed every 4 hours as needed. atorvastatin (LIPITOR) 10 mg tablet Take 1 tablet by mouth once daily. Patient not taking: Reported on 11/12/2017 Stopped by Cardiology Make sure it gets re-started at next visit BD INSULIN SYRINGE UF II 1/2 mL 31 x 5/16 syrg USE DIRECTED WITH LANTUS blood sugar diagnostic (ACCU-CHEK LENORE PLUS TEST STRP) test strip Test blood sugar(s) 3 times daily. Dx: Type 2 DM - Uncontrolled E11.65 Insulin: Yes Blood-Glucose Meter (ACCU-CHEK LENORE PLUS METER) [facility] Dispense 1 Meter Kit. Dx: E11.65 canagliflozin (INVOKANA) 300 mg tablet Take 1 tablet by mouth daily before breakfast. Taking Cholecalciferol, Vitamin D3, 2,000 unit Tab Take 1 capsule by mouth one time daily Taking etodolac (LODINE) 300 mg capsule Take 1 capsule by mouth once daily as needed. Patient not taking: Reported on 12/24/2017 DONE Discontinued: 12/24/2017 11:22 AM insulin aspart U-100 (NOVOLOG FLEXPEN U-100 INSULIN) 100 unit/mL inpn Take subcutaneous injection 13 units with breakfast, 19 units with lunch and 21 units with supper and as directed. (decreased last week since was getting lows) Taking 16-18-19 plus sliding sclae insulin glargine (LANTUS U-100 INSULIN) 100 unit/mL injection Inject 30 Units subcutaneously once daily. November 12, 2017 - increase to 38 units daily in evening. Titrate as directed up to 50 units Taking Lancets lancets Test blood sugar(s) 3 times daily. Dx: Type 2 DM - Controlled E11.65 Insulin: Yes kieasvxha-[id number]-algal oil (METANX, ALGAL OIL,) 3 mg-35 mg-2 mg -90.314 mg cap Take 1 capsule by mouth three times daily. Patient not taking: Reported on 12/24/2017 Not taking loratadine (CLARITIN) 10 mg tablet Take 1 tablet by mouth once daily as needed. FOR ALLERGY SYMPTOMS PRN losartan (COZAAR) 50 mg tablet Take 1 tablet by mouth once daily. Taking metoprolol succinate ER (TOPROL XL) 100 mg Tb24 Take 1 tablet by mouth once daily. taking nitroglycerin sublingual (NITROSTAT) 0.4 mg SL tablet Dissolve 1 tablet under the tongue as needed. If no pain relief call 911. Dr. Hoyos. Discontinued: 12/24/2017 11:35 AM omeprazole (PRILOSEC) 20 mg capsule Take 1 capsule by mouth daily before breakfast. 1/2 hr before meal. Taking ubidecarenone Q-10 50 mg capsule Take 1 capsule by mouth once daily. Not taking vitamin b complex tab Take 1 tablet by mouth once daily. Taking Rx meds not listed in EPIC: none OTCs: none Herbals: none GLYCEMIC CONTROL: ? Glucometer present at visit: No ? SMBG?s: Date Fasting AM 2 hr PP Before Lunch 2 hr PP Before Dinner 2 hr PP Bedtime 12/25 112 12/24 122 170 208 181 12/23 131 165 123 117 12/22 128 12/21 103 313 293 154 12/20 130 12/19 100 190 231 12/18 272 12/17 100 12/16 129 283 12/15 133 272 168 12/14 135 180 294 12/13 119 198 245 12/12 97 ? Hypoglycemia: last night, 60, last week, can't recall but felt s/s ? How corrected: glucose tablets Last 3 Encounter BP Readings: Date: BP: 12/24/2017 118/72 11/12/2017 126/68 08/22/2017 118/52 Wt: 75.8 kg (167 lb) BMI: 31.55 kg/(m2) LABS Lab Results Component Value Date HBA1C 8.4 12/20/2017 HBA1C 9.2 11/12/2017 HBA1C 8.8 08/17/2017 CMP: Glucose 109 12/20/2017 BUN 15 12/20/2017 Creatinine 0.67 12/20/2017 Sodium 144 12/20/2017 Potassium 4.4 12/20/2017 Chloride 106 12/20/2017 CO2 24 12/20/2017 Protein, Total 6.7 12/20/2017 Albumin 4.0 12/20/2017 Calcium 9.3 12/20/2017 Alkaline Phosphatase 81 12/20/2017 Bilirubin, Total 0.6 12/20/2017 AST 20 12/20/2017 ALT 14 12/20/2017 GFR > 60 Estimated CrCL 67.6 mL/min (calculated using Ht 61, adjusted Wt 59 kg, sCr 0.67 mg/dL, using [place]) Last Lipid Panel Lab Results Component Value Date CHOL 124 09/14/2017 CHOL 151 08/17/2017 Lab Results Component Value Date HDL 51 09/14/2017 HDL 57 08/17/2017 Lab Results Component Value Date LDL 55 09/14/2017 LDL 77 08/17/2017 Lab Results Component Value Date TG 91 09/14/2017 TG 86 08/17/2017 Albumin/Creat Ratio (mg/g) Date Value 08/17/2017 Not calculated PHARMACOTHERAPY ASSESSMENT/PLAN: 1. Type 2 diabetes mellitus without complication, with long- term current use of insulin ([facility]) - ICD9: 250.00, V58.67, ICD10: E11.9, Z79.4 A1c goal < 7%, patient is not at goal (8.4% on 12/20). Could consider goal < 8% given age. FBGs at goal and PPBGs not at goal likely d/t noncompliance with lunch and dinnertime prandial insulins. Patient also using sliding scale to correct for a high BG when missing doses. For safety reasons and to avoid further hypoglycemia, will d/c sliding scale today. Will work on compliance with prandial insulin (by keeping Novolog in the fridge instead of in bedroom) and decrease dose with meals (if patient becomes more compliant, the current meal-time doses might be too much and cause hypoglycemia). Canagliflozin potentially contributing to lows as well, but will continue at this time and adjust insulin regimen (previously stopped d/t concern with LFTs, but appropriate to continue). Patient is a candidate for metformin but did not discuss today. Renal fxn and LFTs WNL and appropriate for continued therapy ? DECREASE Novolog to 14 units TID meals ? CONTINUE Lantus 38 units QHS and Invokana 300mg daily ? Instructed patient to move Novolog pens to the fridge for improved compliance with meals, continue checking FBGs and PPBGs 3x daily ? Educated patient on s/s hypoglycemia and appropriate treatment with rule of 15 ? Educated patient on goal FBGs 80-130 mg/dL (or < 170 if A1c goal < 8%); goal PPBGs < 180 Patient is scheduled to see PCP 04/28/18. Patient to return to clinic for PharmD f/u on 01/27/18. Cardiology in March ([facility]) Patient verbalized understanding of instructions. Mali Dawson, MarkD, BCPS CNOV Observed: 12/25/2017 Status: COMPLETED Source: [place] 9:00 AM [facility] REPOSITORY Office Visit (MEWO) MAGNOLIA FISHER ([id number]) 1940 F BLD Date Time Provider Department 12/25/17 9:00 AM SAMIR (PHARMACIST)MALI During your visit today, we recorded the following information about you: MALI DAWSON PHARMACIST 12/25/2017 10:08 AM Signed Patient consents to pharmacy collaborative practice agreement. REASON FOR CONSULT: DM GOALS: A1c < 7% CONSULTING PROVIDER: Mi PETERSON (will need updated consult filed by PCP) Date of Consult: 11/14/17 Magnolia Fisher is a 77 year old female was last seen in [facility] by PCP, Dr. Lori Can MD on 12/24/17. Patient is presenting today for initial pharmacotherapy management appointment for DM. At last PCP visit no medication changes were made. INTERIM HISTORY: Patient reported to PCP yesterday that she was having lows last week, so she self-decreased her prandial insulin by 1 unit Patient reports Invokana was stopped in August due to elevated liver enzymes, but was re-start about a month ago Did have a low sugar last night (60 mg/dL), got shaky, her dog woke her up, did take glucose tablets to correct this Current DM Medications: Insulin glargine (Lantus) VIAL 38 units QHS (keeps vials in fridge -- keeps the vials she is using out of the fridge - no more than 28 days) Insulin aspart -- (reports plus sliding scale) is taking it right before the meal -- keeps the Novolog pen in her bedroom Canagliflozin 300mg QAM Current HTN Medications: Losartan 50mg once daily Metoprolol succinate 100mg once daily Preventative Medications: ? On ANGELA/ARB: Yes ? On Statin: No - stopped d/t elevated liver enzymes, will re-start ? On ASA: No ROS: ? Patient denies CP, SOB, GARCIA, blurred vision, dizziness or lightheadedness ? Patient denies symptoms of hypoglycemia (sweating, anxiety, palpitations, hunger, and tremor) ? Patient denies symptoms of hyperglycemia (polyuria, polydipsia, polyphagia) ? Patient denies potential medication adverse effects DIET/EXERCISE/SOCIAL Hx: ? Breakfast: oatmeal and almond milk or bermudian muffin ? Lunch: vegetable (salad) or ham sandwich ? Dinner: TV dinners ? Snacks: in the afternoon, cookie ? Following Na restrictions: no ? Beverages: orange juice, flavored water no sugar, water MEDICATIONS: ? Pill bottles are not present. ? Adherence: reports missed doses of Novolog with lunch and dinner, since she keeps it in her bedroom, she does not always get to take the meal time injection in time ? Pharmacy: [facility] ? Rx coverage: [employer] ? Affordability: insulin and Invokana most expensive (reports that [facility] reimburses patient) ? Diabetes supplies: Accu Chek [place] ? Organization System: none ACTIVE PROBLEM LIST Myalgia and Myositis, Unspecified Mixed Hyperlipidemia Essential Hypertension Obesity, Unspecified Degeneration of Cervical Intervertebral Disc Diabetes Mellitus (Hcc) Cervical radiculopathy Esophageal Reflux Retinal Hemorrhage Disorder of Bone and Cartilage, Unspecified Acute Gastritis Without Mention of Hemorrhage Diaphragmatic Hernia Without Mention of Obstruction Or Gangrene Depression Sleep Apnea Choledocholithiasis Chronic Cholecystitis Gastroparesis PAST MEDICAL HISTORY Diagnosis Date - Acute gastritis without mention of hemorrhage - Asthma - Coronary atherosclerosis of unspecified type of vessel, [place] or graft - Depression - Diaphragmatic hernia without mention of obstruction or gangrene - Esophageal reflux 07/29/2006 - Hypersomnia with sleep apnea, unspecified - Irritable bowel syndrome - Localized osteoarthrosis not specified whether primary or secondary, unspecified site - Myalgia and myositis, unspecified - Obesity, unspecified - Obstructive sleep apnea - Other and unspecified hyperlipidemia - Other specified gastritis - Retinal hemorrhage 02/27/2007 Dr. Yu - Type II or unspecified type diabetes mellitus without mention of complication, uncontrolled - Unspecified essential hypertension ALLERGIES Allergen Reactions - Lisinopril Cough Resolved after stopped medication - Seasonal Allergies Other: See Comments wheezing Medication List Medication Directions Comments Action/Plan albuterol HFA (PROAIR HFA) 90 mcg/actuation inhaler Inhale 2 Puffs as instructed every 4 hours as needed. atorvastatin (LIPITOR) 10 mg tablet Take 1 tablet by mouth once daily. Patient not taking: Reported on 11/12/2017 Stopped by Cardiology Make sure it gets re-started at next visit BD INSULIN SYRINGE UF II 1/2 mL 31 x 5/16 syrg USE DIRECTED WITH LANTUS blood sugar diagnostic (ACCU-CHEK LENORE PLUS TEST STRP) test strip Test blood sugar(s) 3 times daily. Dx: Type 2 DM - Uncontrolled E11.65 Insulin: Yes Blood-Glucose Meter (ACCU-CHEK LENORE PLUS METER) [facility] Dispense 1 Meter Kit. Dx: E11.65 canagliflozin (INVOKANA) 300 mg tablet Take 1 tablet by mouth daily before breakfast. Taking Cholecalciferol, Vitamin D3, 2,000 unit Tab Take 1 capsule by mouth one time daily Taking etodolac (LODINE) 300 mg capsule Take 1 capsule by mouth once daily as needed. Patient not taking: Reported on 12/24/2017 DONE Discontinued: 12/24/2017 11:22 AM insulin aspart U-100 (NOVOLOG FLEXPEN U-100 INSULIN) 100 unit/mL inpn Take subcutaneous injection 13 units with breakfast, 19 units with lunch and 21 units with supper and as directed. (decreased last week since was getting lows) Taking 16-18-19 plus sliding sclae insulin glargine (LANTUS U-100 INSULIN) 100 unit/mL injection Inject 30 Units subcutaneously once daily. November 12, 2017 - increase to 38 units daily in evening. Titrate as directed up to 50 units Taking Lancets lancets Test blood sugar(s) 3 times daily. Dx: Type 2 DM - Controlled E11.65 Insulin: Yes kjngbahce-E2-dgP53-algal oil (METANX, ALGAL OIL,) 3 mg-35 mg-2 mg -90.314 mg cap Take 1 capsule by mouth three times daily. Patient not taking: Reported on 12/24/2017 Not taking loratadine (CLARITIN) 10 mg tablet Take 1 tablet by mouth once daily as needed. FOR ALLERGY SYMPTOMS PRN losartan (COZAAR) 50 mg tablet Take 1 tablet by mouth once daily. Taking metoprolol succinate ER (TOPROL XL) 100 mg Tb24 Take 1 tablet by mouth once daily. taking nitroglycerin sublingual (NITROSTAT) 0.4 mg SL tablet Dissolve 1 tablet under the tongue as needed. If no pain relief call 911. Dr. Hoyos. Discontinued: 12/24/2017 11:35 AM omeprazole (PRILOSEC) 20 mg capsule Take 1 capsule by mouth daily before breakfast. 1/2 hr before meal. Taking ubidecarenone Q-10 50 mg capsule Take 1 capsule by mouth once daily. Not taking vitamin b complex tab Take 1 tablet by mouth once daily. Taking Rx meds not listed in EPIC: none OTCs: none Herbals: none GLYCEMIC CONTROL: ? Glucometer present at visit: No ? SMBG?s: Date Fasting AM 2 hr PP Before Lunch 2 hr PP Before Dinner 2 hr PP Bedtime 12/25 112 12/24 122 170 208 181 12/23 131 165 123 117 12/22 128 12/21 103 313 293 154 12/20 130 12/19 100 190 231 12/18 272 12/17 100 12/16 129 283 12/15 133 272 168 12/14 135 180 294 12/13 119 198 245 12/12 97 ? Hypoglycemia: last night, 60, last week, can't recall but felt s/s ? How corrected: glucose tablets Last 3 Encounter BP Readings: Date: BP: 12/24/2017 118/72 11/12/2017 126/68 08/22/2017 118/52 Wt: 75.8 kg (167 lb) BMI: 31.55 kg/(m2) LABS Lab Results Component Value Date HBA1C 8.4 12/20/2017 HBA1C 9.2 11/12/2017 HBA1C 8.8 08/17/2017 CMP: Glucose 109 12/20/2017 BUN 15 12/20/2017 Creatinine 0.67 12/20/2017 Sodium 144 12/20/2017 Potassium 4.4 12/20/2017 Chloride 106 12/20/2017 CO2 24 12/20/2017 Protein, Total 6.7 12/20/2017 Albumin 4.0 12/20/2017 Calcium 9.3 12/20/2017 Alkaline Phosphatase 81 12/20/2017 Bilirubin, Total 0.6 12/20/2017 AST 20 12/20/2017 ALT 14 12/20/2017 GFR > 60 Estimated CrCL 67.6 mL/min (calculated using Ht 61, adjusted Wt 59 kg, sCr 0.67 mg/dL, using [place]) Last Lipid Panel Lab Results Component Value Date CHOL 124 09/14/2017 CHOL 151 08/17/2017 Lab Results Component Value Date HDL 51 09/14/2017 HDL 57 08/17/2017 Lab Results Component Value Date LDL 55 09/14/2017 LDL 77 08/17/2017 Lab Results Component Value Date TG 91 09/14/2017 TG 86 08/17/2017 Albumin/Creat Ratio (mg/g) Date Value 08/17/2017 Not calculated PHARMACOTHERAPY ASSESSMENT/PLAN: 1. Type 2 diabetes mellitus without complication, with long- term current use of insulin ([facility]) - ICD9: 250.00, V58.67, ICD10: E11.9, Z79.4 A1c goal < 7%, patient is not at goal (8.4% on 12/20). Could consider goal < 8% given age. FBGs at goal and PPBGs not at goal likely d/t noncompliance with lunch and dinnertime prandial insulins. Patient also using sliding scale to correct for a high BG when missing doses. For safety reasons and to avoid further hypoglycemia, will d/c sliding scale today. Will work on compliance with prandial insulin (by keeping Novolog in the fridge instead of in bedroom) and decrease dose with meals (if patient becomes more compliant, the current meal-time doses might be too much and cause hypoglycemia). Canagliflozin potentially contributing to lows as well, but will continue at this time and adjust insulin regimen (previously stopped d/t concern with LFTs, but appropriate to continue). Patient is a candidate for metformin but did not discuss today. Renal fxn and LFTs WNL and appropriate for continued therapy ? DECREASE Novolog to 14 units TID meals ? CONTINUE Lantus 38 units QHS and Invokana 300mg daily ? Instructed patient to move Novolog pens to the fridge for improved compliance with meals, continue checking FBGs and PPBGs 3x daily ? Educated patient on s/s hypoglycemia and appropriate treatment with rule of 15 ? Educated patient on goal FBGs 80-130 mg/dL (or < 170 if A1c goal < 8%); goal PPBGs < 180 Patient is scheduled to see PCP 04/28/18. Patient to return to clinic for PharmD f/u on 01/27/18. Cardiology in March ([facility]) Patient verbalized understanding of instructions. Mali Dawson, MarkD, [facility] MALI DAWSON, PHARMACIST 12/25/2017 9:46 AM Signed Keep Novolog in refrigerator 14 units RIGHT BEFORE each meal, pen in one hand, fork in the other No sliding scale Call Mali if any low sugars occur Mali Dawson, PharmD, [facility] [phone] Referring Provider: LORI CAN [[id number]] Allergies As of Date: 12/25/2017 Noted Allergy Reaction LISINOPRIL 06/06/2011 3 - Cough Comments: Resolved after stopped medication SEASONAL ALLERGIES 06/26/2013 14 - Other: See Comments Comments: wheezing Date Reviewed: 12/24/2017 Reviewed by: Cris Spencer LPN - Fully Assessed Reason for Visit: Allied Health Visit [5] Cmt: DM initial Visit Diagnosis:Type 2 diabetes mellitus without complication, with long-term current use of insulin ([facility]) [E11.9, Z79.4] Order(s):tosafnkx-otv-etat-FA-lutein ([employer]) 8 mg iron-400 mcg-300 mcg tabTake 1 tablet by mouth dailyDisp: Rfl: insulin aspart U-100 (NOVOLOG FLEXPEN U-100 INSULIN) 100 unit/mL inpnInject 14 Units subcutaneously three times daily before meals.Disp: 5 PenRfl: 3 insulin glargine (LANTUS U-100 INSULIN) 100 unit/mL injectionInject 38 Units subcutaneously once daily.Disp: Rfl: Prescriptions as of 12/25/2017 Sig: MULTIVIT WITH MWPBFZCI-IZVA-L* Take 1 tablet by mouth daily INSULIN ASPART U-100 100 UNI* Inject 14 Units subcutaneousl* INSULIN GLARGINE (U-100) 100 * Inject 38 Units subcutaneousl* CANAGLIFLOZIN 300 MG TABLET Take 1 tablet by mouth daily * METOPROLOL SUCCINATE ER 100 M* Take 1 tablet by mouth once d* LOSARTAN 50 MG TABLET Take 1 tablet by mouth once d* ATORVASTATIN 10 MG TABLET Take 1 tablet by mouth once d* OMEPRAZOLE 20 MG CAPSULE,ELÍAS* Take 1 capsule by mouth daily* LORATADINE 10 MG TABLET Take 1 tablet by mouth once d* VITAMIN B COMPLEX TABLET Take 1 tablet by mouth once d* CHOLECALCIFEROL (VITAMIN D3) * Take 1 capsule by mouth one t* LANCETS Test blood sugar(s) 3 times d* BLOOD SUGAR DIAGNOSTIC STRIPS Test blood sugar(s) 3 times d* BLOOD-GLUCOSE METER Dispense 1 Meter Kit. Dx: E1* BD INSULIN SYRINGE ULT-FINE I* USE DIRECTED WITH LANTUS NITROGLYCERIN 0.4 MG SUBLINGU* Dissolve 1 tablet under the t* ALBUTEROL SULFATE HFA 90 MCG/* Inhale 2 Puffs as instructed * Problem List As Of Date 12/25/2017 Noted Resolved MYALGIA AND MYOSITIS NOS [[id number]] Mixed hyperlipidemia [E78.2] Essential hypertension [I10] OBESITY NOS [E66.9] CERVICAL DISC DEGEN [M50.30] INVALID FOR* Diabetes mellitus (HCC) [E11.9] INVALID FOR* Cervical radiculopathy [[id number]] INVALID FOR* ESOPHAGEAL REFLUX [K21.9] INVALID FOR* RETINAL HEMORRHAGE [H35.60] INVALID FOR* More... BONE AND CARTILAGE DIS NOS [M89.9, M94.9] INVALID FOR* Acute gastritis without mention of hemorrhage [*INVALID FOR* Diaphragmatic hernia without mention of obstruc*INVALID FOR* Depression [F32.9] INVALID FOR* Sleep apnea [G47.30] INVALID FOR* More... Choledocholithiasis [K80.50] INVALID FOR* Chronic cholecystitis [K81.1] INVALID FOR* Gastroparesis [K31.84] INVALID FOR* Other instructions from your clinician: Keep Novolog in refrigerator 14 units RIGHT BEFORE each meal, pen in one hand, fork in the other No sliding scale Call [place] if any low sugars occur Mlai Dawson, PharmD, [facility] [phone] Prescriptions ordered this encounter Disp Refills Start End MULTIVIT WITH PBEMXYND-KDRP-AW-LUTEI* 12/25/2017 Class: OTC Sig: Take 1 tablet by mouth daily INSULIN ASPART U-100 100 UNIT/ML GRIGGS* 5 Pen 3 12/25/2017 Route: SUBCUTANEOUS Sig: Inject 14 Units subcutaneously three times daily before meals. INSULIN GLARGINE (U-100) 100 UNIT/ML* 12/25/2017 12/25/2017 Class: Med Update Route: SUBCUTANEOUS Sig: Inject 38 Units subcutaneously once daily. November 12, 2017 - increase to 38 units daily in evening. Titrate as directed up to 50 units INSULIN GLARGINE (U-100) 100 UNIT/ML* 12/25/2017 Class: Med Update Route: SUBCUTANEOUS Sig: Inject 38 Units subcutaneously once daily. Medications Discontinued During This Encounter etodolac (LODINE) 300 mg capsule 30 c* 5 08/22/2017 12/25/2017 Route: ORAL Sig: Take 1 capsule by mouth once daily as needed. Patient not taking: Reported on 12/24/2017 Disc: Course of therapy completed clugahnre-N5-tmP14-algal oil (METANX* 11/09/2015 12/25/2017 Class: Med Update Route: ORAL Sig: Take 1 capsule by mouth three times daily. Patient not taking: Reported on 12/24/2017 Disc: Course of therapy completed ubidecarenone Q-10 50 mg capsule 0 12/24/2012 12/25/2017 Class: Historical Med Route: ORAL Sig: Take 1 capsule by mouth once daily. Disc: Course of therapy completed insulin aspart U-100 (NOVOLOG FLEXPE* 12/24/2017 12/25/2017 Class: Med Update Sig: Take subcutaneous injection 13 units with breakfast, 19 units with lunch and 21 units with supper and as directed. (decreased last week since was getting lows) Disc: Reason for discontinue is not on file. insulin glargine (LANTUS U-100 INSUL* 3 Vi* 3 11/12/2017 12/25/2017 Class: Med Update Route: SUBCUTANEOUS Sig: Inject 30 Units subcutaneously once daily. November 12, 2017 - increase to 38 units daily in evening. Titrate as directed up to 50 units Disc: Reason for discontinue is not on file. insulin glargine (LANTUS U-100 INSUL* 12/25/2017 12/25/2017 Class: Med Update Route: SUBCUTANEOUS Sig: Inject 38 Units subcutaneously once daily. November 12, 2017 - increase to 38 units daily in evening. Titrate as directed up to 50 units Disc: Reason for discontinue is not on file. Encounter Status:Closed by SAMIR (PHARMACIST)MALI on 12/25/17 LIVER PROFILE Collected: 12/25/2017 Status: F Source: ANGE 7:42 AM [facility] [place] REPOSITORY TYPE CODE TESTS RESULT OUT OF RANGE REFERENCE UNITS LAB L501.1500 6.4-8.2 g/dL Normal T PROT 7.2 LAB L501.1800 3.2-5.0 g/dL Normal ALB 3.6 LAB L501.1950 2.2-4.2 g/dL Normal GLOB 3.6 LAB L501.4100 15-37 U/L Normal AST 18 LAB L501.4305 45-117 U/L Normal ALK P 90 LAB L501.4405 13-56 U/L Normal ALT 21 LAB L501.4600 0.20-1.00 mg/dL Normal T BILI 0.70 LAB L501.4700 0.00-0.30 mg/dL Normal D BILI 0.15 Performed By: #### L500.3400, L500.4100 #### [facility] [address] [place], [address] LIPID PROFILE Collected: 12/25/2017 Status: F Source: BARCO 7:42 AM [facility] [place] REPOSITORY TYPE CODE TESTS RESULT OUT OF RANGE REFERENCE UNITS LAB L501.4900 200 mg/dL High CHOL 209 Result Comment: <200 mg/dL Desirable 200-240 mg/dL Borderline >240 mg/dL High Risk LAB L501.5000 mg/dL Normal TRIG 150 Result Comment: The drugs N-Acetylcysteine and Metamizole may falsely depress this assay. Serum Triglycerides Reference Interval Normal <150 mg/dL Borderline high 150 - 199 mg/dL High 200 - 499 mg/dL Very High > or = 500 mg/dL LAB L501.6400 mg/dL Normal HDL 52 Result Comment: The drugs N-Acetylcysteine and Metamizole may falsely depress this assay. Reference Range HDL <40 mg/dL Low HDL Cholesterol HDL >or= 60 mg/dL High HDL Cholesterol LAB L501.6500 0-130 mg/dL Normal LDL 127 LAB L501.6600 5-40 mg/dL Normal VLDL 30 Performed By: #### L500.3400, L500.4100 #### [facility] [address] [place], [place], [address] PROGRESS Observed: 12/24/2017 Status: COMPLETED Source: TIM 11:07 AM [facility] [place] REPOSITORY HNO ID: [id number] Author: Lori Can Service: (none) Author Type: Physician Type: Progress Notes Filed: 01/09/2018 12:29 AM Note Text: Patient presents with: Recheck: Follow up SUBJECTIVE: Magnolia Fisher is a 77 year old year old lady here today for 4 month follow up appointment for review of medical conditions. Feeling better with sugars better. More energy. Note having as many highs as 2 weeks ago Lows last week so decreased mealtime insulin by 1 unit. Will see [place]i tomorrow. Left wrist doing better with OT. Blood pressure controlled without adverse effects from medications. PAST MEDICAL HISTORY Diagnosis Date - Acute gastritis without mention of hemorrhage - Asthma - Coronary atherosclerosis of unspecified type of vessel, [place] or graft - Depression - Diaphragmatic hernia without mention of obstruction or gangrene - Esophageal reflux 07/29/2006 - Hypersomnia with sleep apnea, unspecified - Irritable bowel syndrome - Localized osteoarthrosis not specified whether primary or secondary, unspecified site - Myalgia and myositis, unspecified - Obesity, unspecified - Obstructive sleep apnea - Other and unspecified hyperlipidemia - Other specified gastritis - Retinal hemorrhage 02/27/2007 Dr. Yu - Type II or unspecified type diabetes mellitus without mention of complication, uncontrolled - Unspecified essential hypertension Current Outpatient Prescriptions: insulin aspart U-100 (NOVOLOG FLEXPEN U-100 INSULIN) 100 unit/mL inpn Take subcutaneous injection 13 units with breakfast, 19 units with lunch and 21 units with supper and as directed. (decreased last week since was getting lows) insulin glargine (LANTUS U-100 INSULIN) 100 unit/mL injection Inject 30 Units subcutaneously once daily. November 12, 2017 - increase to 38 units daily in evening. Titrate as directed up to 50 units canagliflozin (INVOKANA) 300 mg tablet Take 1 tablet by mouth daily before breakfast. metoprolol succinate ER (TOPROL XL) 100 mg Tb24 Take 1 tablet by mouth once daily. losartan (COZAAR) 50 mg tablet Take 1 tablet by mouth once daily. omeprazole (PRILOSEC) 20 mg capsule Take 1 capsule by mouth daily before breakfast. 1/2 hr before meal. Lancets lancets Test blood sugar(s) 3 times daily. Dx: Type 2 DM - Controlled E11.65 Insulin: Yes blood sugar diagnostic (ACCU-CHEK LENORE PLUS TEST STRP) test strip Test blood sugar(s) 3 times daily. Dx: Type 2 DM - Uncontrolled . Insulin: Yes Blood-Glucose Meter (ACCU-CHEK ELNORE PLUS METER) [facility] Dispense 1 Meter Kit. Dx: E11. BD INSULIN SYRINGE UF II 1/2 mL 31 x 5/16 syrg USE DIRECTED WITH LANTUS loratadine (CLARITIN) 10 mg tablet Take 1 tablet by mouth once daily as needed. FOR ALLERGY SYMPTOMS nitroglycerin sublingual (NITROSTAT) 0.4 mg SL tablet Dissolve 1 tablet under the tongue as needed. If no pain relief call 911. Dr. Hoyos. vitamin b complex tab Take 1 tablet by mouth once daily. Cholecalciferol, Vitamin D3, 2,000 unit Tab Take 1 capsule by mouth one time daily albuterol HFA (PROAIR HFA) 90 mcg/actuation inhaler Inhale 2 Puffs as instructed every 4 hours as needed. etodolac (LODINE) 300 mg capsule Take 1 capsule by mouth once daily as needed. (Patient not taking: Reported on 12/24/2017 ) atorvastatin (LIPITOR) 10 mg tablet Take 1 tablet by mouth once daily. (Patient not taking: Reported on 11/12/2017 ) lkpkvvysp-A7-yxV23-algal oil (METANX, ALGAL OIL,) 3 mg-35 mg-2 mg -90.314 mg cap Take 1 capsule by mouth three times daily. (Patient not taking: Reported on 12/24/2017 ) ubidecarenone Q-10 50 mg capsule Take 1 capsule by mouth once daily. No current facility-administered medications for this visit. OBJECTIVE: BP 118/72 Pulse 64 Resp 16 Wt 75.8 kg (167 lb) BMI 31.55 kg/m? Patient is alert, oriented times 3, no apparent distress, affect is bright, reactive. Last 5 Encounter BP Readings: Date: BP: 12/24/2017 118/72 11/12/2017 126/68 08/22/2017 118/52 04/15/2017 102/62 09/25/2016 112/64 Last 5 Encounter Wt Readings: Date: Wt: 12/24/2017 75.8 kg (167 lb) 11/12/2017 76.2 kg (168 lb) 08/22/2017 72.6 kg (160 lb) 04/15/2017 72.6 kg (160 lb) 09/25/2016 73.5 kg (162 lb) Heart: Regular rate, rhythm, no murmurs, gallops, rubs. Lungs: Clear to auscultation, bilaterally, breathing non labored. Ext: No cyanosis, clubbing, or edema. Component Latest Ref Rng AND Units 05/22/2016 09/20/2016 04/12/2017 08/17/2017 11/12/2017 12/20/2017 Protein, Total 6.3 - 8.0 g/dL 6.7 6.7 Albumin 3.9 - 4.9 g/dL 4.2 4.0 Calcium 8.5 - 10.2 mg/dL 9.7 9.2 9.0 9.4 9.7 9.3 Bilirubin, Total 0.2 - 1.3 mg/dL 0.4 0.6 Alkaline Phosphatase 32 - 117 U/L 117 81 AST 13 - 35 U/L 21 20 Glucose 74 - 99 mg/dL 149 (H) 144 (H) 120 (H) 143 (H) 265 (H) 109 (H) BUN 7 - 21 mg/dL 17 13 14 12 12 15 Creatinine 0.58 - 0.96 mg/dL 0.78 0.71 0.73 0.70 0.69 0.67 Sodium 136 - 144 mmol/L 140 140 142 141 138 144 Potassium 3.7 - 5.1 mmol/L 4.7 4.5 4.5 4.8 4.3 4.4 Chloride 97 - 105 mmol/L 100 102 103 103 98 106 (H) CO2 22 - 30 mmol/L 28 26 24 24 26 24 Anion Gap 9 - 18 mmol/L 12 12 15 14 14 14 ALT 7 - 38 U/L 17 14 eGFR- >60 >60 >60 >60 >60 >60 eGFR-All Other Races . >60 >60 >60 >60 >60 >60 Triglyceride <150 mg/dL 98 86 Cholesterol, Total <200 mg/dL 146 151 HDL Cholesterol >39 mg/dL 52 (L) 57 VLDL Cholesterol <30 mg/dL 20 17 LDL Cholesterol <100 mg/dL 74 77 Fasting Time hrs 12 12 TC:HDL Ratio <5.10 2.81 2.65 LDL:HDL Ratio <2.54 1.42 1.35 Non HDL Cholesterol <130 mg/dL 94 94 Creatinine, Ur Random (UCRR) 20 - 300 mg/dL 67.4 Albumin, Urine Random 0.0 - 23.0 mg/L <12.0 Albumin/Creat Ratio 0 - 30 mg/g Not calculated Hemoglobin A1C 4.3 - 5.6 % 8.6 (H) 8.0 (H) 8.4 (H) 8.8 (H) 9.2 (H) 8.4 (H) Estimated Average Glucose mg/dL 200 183 194 206 217 194 ASSESSMENT AND PLAN: Encounter Diagnosis ICD-10-CM 1. Type 2 diabetes mellitus without complication, with long- term current use of insulin (HCC) E11.9 COMP METABOLIC PANEL Z79.4 HGB A1C DISCONTINUED: insulin aspart U-100 (NOVOLOG FLEXPEN U-100 INSULIN) 100 unit/mL inpn 2. Essential hypertension I10 COMP METABOLIC PANEL 3. Mixed hyperlipidemia E78.2 LIPID PANEL BASIC 4. Reactive depression F32.9 Needs to keep working on diet and exercise with lifestyle changes for effective weight loss. Above issues addressed with patient. Patient involved in shared decision making for management of medical issues. History and medications reviewed. Epic updated as needed Refills taken care of and meds adjusted as indicated after reviewed history, exam and labs. Health Maintenance reviewed. Updated record and/or ordered tests as recorded. Encouraged on efforts at healthy diet and regular exercise and adequate sleep. Needs to keep working on diet and exercise with lifestyle changes for effective weight loss as well as control of DM, and control of BP and lipids. HgA1C improved. BP controlled. Continue present management. Lipids doing okay. Continue present meds. Further evaluation and treatment as indicated. Noted stressors with taking care of who has health issues. Does have some help from daughter and friends. Her dog helps her manage the stressors. Emotional support given. The majority of the visit was spent counseling and/or coordinating care for the patient. Hufr-ci-ebqt time was at least 25 minutes. Lori Can MD CNOV Observed: 12/24/2017 Status: COMPLETED Source: HIRA 10:40 AM [facility] REPOSITORY Office Visit (INT[facility]) MAGNOLIA FISHER ([id number]) 1940 F DINAH Date Time Provider Department 12/24/17 10:40 AM LORI CAN IN[facility] During your visit today, we recorded the following information about you: Pulse Respiration Blood pressure Weight 64/minute 16/minute 118/72 75.8 kg Lori Can MD 01/09/2018 12:29 AM Signed Patient presents with: Recheck: Follow up SUBJECTIVE: Magnolia Fisher is a 77 year old year old lady here today for 4 month follow up appointment for review of medical conditions. Feeling better with sugars better. More energy. Note having as many highs as 2 weeks ago Lows last week so decreased mealtime insulin by 1 unit. Will see [place] tomorrow. Left wrist doing better with OT. Blood pressure controlled without adverse effects from medications. PAST MEDICAL HISTORY Diagnosis Date - Acute gastritis without mention of hemorrhage - Asthma - Coronary atherosclerosis of unspecified type of vessel, [place] or graft - Depression - Diaphragmatic hernia without mention of obstruction or gangrene - Esophageal reflux 07/29/2006 - Hypersomnia with sleep apnea, unspecified - Irritable bowel syndrome - Localized osteoarthrosis not specified whether primary or secondary, unspecified site - Myalgia and myositis, unspecified - Obesity, unspecified - Obstructive sleep apnea - Other and unspecified hyperlipidemia - Other specified gastritis - Retinal hemorrhage 02/27/2007 Dr. Yu - Type II or unspecified type diabetes mellitus without mention of complication, uncontrolled - Unspecified essential hypertension Current Outpatient Prescriptions: insulin aspart U-100 (NOVOLOG FLEXPEN U-100 INSULIN) 100 unit/mL inpn Take subcutaneous injection 13 units with breakfast, 19 units with lunch and 21 units with supper and as directed. (decreased last week since was getting lows) insulin glargine (LANTUS U-100 INSULIN) 100 unit/mL injection Inject 30 Units subcutaneously once daily. November 12, 2017 - increase to 38 units daily in evening. Titrate as directed up to 50 units canagliflozin (INVOKANA) 300 mg tablet Take 1 tablet by mouth daily before breakfast. metoprolol succinate ER (TOPROL XL) 100 mg Tb24 Take 1 tablet by mouth once daily. losartan (COZAAR) 50 mg tablet Take 1 tablet by mouth once daily. omeprazole (PRILOSEC) 20 mg capsule Take 1 capsule by mouth daily before breakfast. 1/2 hr before meal. Lancets lancets Test blood sugar(s) 3 times daily. Dx: Type 2 DM - Controlled E11.65 Insulin: Yes blood sugar diagnostic (ACCU-CHEK LENORE PLUS TEST STRP) test strip Test blood sugar(s) 3 times daily. Dx: Type 2 DM - Uncontrolled E11.65 Insulin: Yes Blood-Glucose Meter (ACCU-CHEK LENORE PLUS METER) [facility] Dispense 1 Meter Kit. Dx: E11.65 BD INSULIN SYRINGE UF II 1/2 mL 31 x 5/16 syrg USE DIRECTED WITH LANTUS loratadine (CLARITIN) 10 mg tablet Take 1 tablet by mouth once daily as needed. FOR ALLERGY SYMPTOMS nitroglycerin sublingual (NITROSTAT) 0.4 mg SL tablet Dissolve 1 tablet under the tongue as needed. If no pain relief call 911. Dr. Hoyos. vitamin b complex tab Take 1 tablet by mouth once daily. Cholecalciferol, Vitamin D3, 2,000 unit Tab Take 1 capsule by mouth one time daily albuterol HFA (PROAIR HFA) 90 mcg/actuation inhaler Inhale 2 Puffs as instructed every 4 hours as needed. etodolac (LODINE) 300 mg capsule Take 1 capsule by mouth once daily as needed. (Patient not taking: Reported on 12/24/2017 ) atorvastatin (LIPITOR) 10 mg tablet Take 1 tablet by mouth once daily. (Patient not taking: Reported on 11/12/2017 ) grlrfxgsa-S0-bmZ42-algal oil (METANX, ALGAL OIL,) 3 mg-35 mg-2 mg -90.314 mg cap Take 1 capsule by mouth three times daily. (Patient not taking: Reported on 12/24/2017 ) ubidecarenone Q-10 50 mg capsule Take 1 capsule by mouth once daily. No current facility-administered medications for this visit. OBJECTIVE: BP 118/72 Pulse 64 Resp 16 Wt 75.8 kg (167 lb) BMI 31.55 kg/m? Patient is alert, oriented times 3, no apparent distress, affect is bright, reactive. Last 5 Encounter BP Readings: Date: BP: 12/24/2017 118/72 11/12/2017 126/68 08/22/2017 118/52 04/15/2017 102/62 09/25/2016 112/64 Last 5 Encounter Wt Readings: Date: Wt: 12/24/2017 75.8 kg (167 lb) 11/12/2017 76.2 kg (168 lb) 08/22/2017 72.6 kg (160 lb) 04/15/2017 72.6 kg (160 lb) 09/25/2016 73.5 kg (162 lb) Heart: Regular rate, rhythm, no murmurs, gallops, rubs. Lungs: Clear to auscultation, bilaterally, breathing non labored. Ext: No cyanosis, clubbing, or edema. Component Latest Ref Rng AND Units 05/22/2016 09/20/2016 04/12/2017 08/17/2017 11/12/2017 12/20/2017 Protein, Total 6.3 - 8.0 g/dL 6.7 6.7 Albumin 3.9 - 4.9 g/dL 4.2 4.0 Calcium 8.5 - 10.2 mg/dL 9.7 9.2 9.0 9.4 9.7 9.3 Bilirubin, Total 0.2 - 1.3 mg/dL 0.4 0.6 Alkaline Phosphatase 32 - 117 U/L 117 81 AST 13 - 35 U/L 21 20 Glucose 74 - 99 mg/dL 149 (H) 144 (H) 120 (H) 143 (H) 265 (H) 109 (H) BUN 7 - 21 mg/dL 17 13 14 12 12 15 Creatinine 0.58 - 0.96 mg/dL 0.78 0.71 0.73 0.70 0.69 0.67 Sodium 136 - 144 mmol/L 140 140 142 141 138 144 Potassium 3.7 - 5.1 mmol/L 4.7 4.5 4.5 4.8 4.3 4.4 Chloride 97 - 105 mmol/L 100 102 103 103 98 106 (H) CO2 22 - 30 mmol/L 28 26 24 24 26 24 Anion Gap 9 - 18 mmol/L 12 12 15 14 14 14 ALT 7 - 38 U/L 17 14 eGFR- >60 >60 >60 >60 >60 >60 eGFR-All Other Races . >60 >60 >60 >60 >60 >60 Triglyceride <150 mg/dL 98 86 Cholesterol, Total <200 mg/dL 146 151 HDL Cholesterol >39 mg/dL 52 (L) 57 VLDL Cholesterol <30 mg/dL 20 17 LDL Cholesterol <100 mg/dL 74 77 Fasting Time hrs 12 12 TC:HDL Ratio <5.10 2.81 2.65 LDL:HDL Ratio <2.54 1.42 1.35 Non HDL Cholesterol <130 mg/dL 94 94 Creatinine, Ur Random (UCRR) 20 - 300 mg/dL 67.4 Albumin, Urine Random 0.0 - 23.0 mg/L <12.0 Albumin/Creat Ratio 0 - 30 mg/g Not calculated Hemoglobin A1C 4.3 - 5.6 % 8.6 (H) 8.0 (H) 8.4 (H) 8.8 (H) 9.2 (H) 8.4 (H) Estimated Average Glucose mg/dL 200 183 194 206 217 194 ASSESSMENT AND PLAN: Encounter Diagnosis ICD-10-CM 1. Type 2 diabetes mellitus without complication, with long- term current use of insulin (HCC) E11.9 COMP METABOLIC PANEL Z79.4 HGB A1C DISCONTINUED: insulin aspart U-100 (NOVOLOG FLEXPEN U-100 INSULIN) 100 unit/mL inpn 2. Essential hypertension I10 COMP METABOLIC PANEL 3. Mixed hyperlipidemia E78.2 LIPID PANEL BASIC 4. Reactive depression F32.9 Needs to keep working on diet and exercise with lifestyle changes for effective weight loss. Above issues addressed with patient. Patient involved in shared decision making for management of medical issues. History and medications reviewed. Epic updated as needed Refills taken care of and meds adjusted as indicated after reviewed history, exam and labs. Health Maintenance reviewed. Updated record and/or ordered tests as recorded. Encouraged on efforts at healthy diet and regular exercise and adequate sleep. Needs to keep working on diet and exercise with lifestyle changes for effective weight loss as well as control of DM, and control of BP and lipids. HgA1C improved. BP controlled. Continue present management. Lipids doing okay. Continue present meds. Further evaluation and treatment as indicated. Noted stressors with taking care of who has health issues. Does have some help from daughter and friends. Her dog helps her manage the stressors. Emotional support given. The majority of the visit was spent counseling and/or coordinating care for the patient. Eery-jv-zuno time was at least 25 minutes. Lori Can MD Referring Provider: LORI CAN [[id number]] Allergies As of Date: 12/24/2017 Noted Allergy Reaction LISINOPRIL 06/06/2011 3 - Cough Comments: Resolved after stopped medication SEASONAL ALLERGIES 06/26/2013 14 - Other: See Comments Comments: wheezing Date Reviewed: 12/24/2017 Reviewed by: Cris Spencer LPN - Fully Assessed Reason for Visit: Recheck [92] Cmt: Follow up Primary Visit Diagnosis:Type 2 diabetes mellitus without complication, with long-term current use of insulin (HCC) [E11.9, Z79.4] Other Visit Diagnoses:Essential hypertension [I10] Mixed hyperlipidemia [E78.2] 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] Order(s):COMP METABOLIC PANEL [SQCMP] Order #: [id number] FUTURE HGB A1C [BHVFK5G] Order #: [id number] FUTURE LIPID PANEL BASIC [SQLIPB] Order #: [id number] FUTURE LIPID PANEL (OUTSIDE) [1698307] Order #: [id number] Prescriptions as of 12/24/2017 Sig: X INSULIN ASPART U-100 100 UNI* Take subcutaneous injection 1* X INSULIN GLARGINE (U-100) 100 * Inject 30 Units subcutaneousl* CANAGLIFLOZIN 300 MG TABLET Take 1 tablet by mouth daily * METOPROLOL SUCCINATE ER 100 M* Take 1 tablet by mouth once d* LOSARTAN 50 MG TABLET Take 1 tablet by mouth once d* OMEPRAZOLE 20 MG CAPSULE,ELÍAS* Take 1 capsule by mouth daily* LANCETS Test blood sugar(s) 3 times d* BLOOD SUGAR DIAGNOSTIC STRIPS Test blood sugar(s) 3 times d* BLOOD-GLUCOSE METER Dispense 1 Meter Kit. Dx: E1* BD INSULIN SYRINGE ULT-FINE I* USE DIRECTED WITH LANTUS LORATADINE 10 MG TABLET Take 1 tablet by mouth once d* NITROGLYCERIN 0.4 MG SUBLINGU* Dissolve 1 tablet under the t* VITAMIN B COMPLEX TABLET Take 1 tablet by mouth once d* CHOLECALCIFEROL (VITAMIN D3) * Take 1 capsule by mouth one t* ALBUTEROL SULFATE HFA 90 MCG/* Inhale 2 Puffs as instructed * ATORVASTATIN 10 MG TABLET Take 1 tablet by mouth once d* X ETODOLAC 300 MG CAPSULE Take 1 capsule by mouth once * Patient not taking: Reported on 12/24/2017 X LEVOMEFOLATE CA 3 MG-B6 35 MG* Take 1 capsule by mouth three* Patient not taking: Reported on 12/24/2017 X COENZYME Q10 50 MG CAPSULE Take 1 capsule by mouth once * Medication notes this encounter INSULIN GLARGINE (U-100) 100 UNIT/ML SUBCUTANEOUS SOLUTION >> Lori D Talampas, MD 12/24/2017 11:34 AM >> LORI CAN MD SatDec 24, 2017 11:34 AM last RX sent august 22, 2017 with 3 vials and 3 refills ATORVASTATIN 10 MG TABLET >> Lori Can MD 12/24/2017 11:34 AM >> LORI CAN MD SatDec 24, 2017 11:[address] Hoyos soon so can decide about this med LEVOMEFOLATE CA 3 MG-B6 35 MG-MEB12 2 MG-ALGAL OIL 90.314 MG CAPSULE >> Lori Can MD 12/24/2017 11:21 AM >> LORI CAN MD SatDec 24, 2017 11:21 AM Wants to know if may resume now that LFTs within normal limits Problem List As Of Date 12/24/2017 Noted Resolved MYALGIA AND MYOSITIS NOS [[id number]] Mixed hyperlipidemia [E78.2] Essential hypertension [I10] OBESITY NOS [E66.9] CERVICAL DISC DEGEN [M50.30] INVALID FOR* Diabetes mellitus (HCC) [E11.9] INVALID FOR* Cervical radiculopathy [[id number]] INVALID FOR* ESOPHAGEAL REFLUX [K21.9] INVALID FOR* RETINAL HEMORRHAGE [H35.60] INVALID FOR* More... BONE AND CARTILAGE DIS NOS [M89.9, M94.9] INVALID FOR* Acute gastritis without mention of hemorrhage [*INVALID FOR* Diaphragmatic hernia without mention of obstruc*INVALID FOR* Depression [F32.9] INVALID FOR* Sleep apnea [G47.30] INVALID FOR* More... Choledocholithiasis [K80.50] INVALID FOR* Chronic cholecystitis [K81.1] INVALID FOR* Gastroparesis [K31.84] INVALID FOR* Prescriptions ordered this encounter Disp Refills Start End INSULIN ASPART U-100 100 UNIT/ML GRIGGS* 12/24/2017 12/25/2017 Class: Med Update Sig: Take subcutaneous injection 13 units with breakfast, 19 units with lunch and 21 units with supper and as directed. (decreased last week since was getting lows) Medications Discontinued During This Encounter insulin aspart U-100 (NOVOLOG FLEXPE* 15 P* 3 11/12/2017 12/24/2017 Class: Med Update Sig: Take subcutaneous injection 14 units with breakfast, 20 units with lunch and 22 units with supper and as directed. Disc: Reason for discontinue is not on file. NORVASC 5 MG ORAL TAB 0 12/07/2004 12/24/2017 Class: Historical Med Route: ORAL Sig: Take one(1) tablet daily. Disc: Discontinued by another Health Care Provider Disposition: Return in about 4 months (around 04/25/2018) for 4 months follow up, With labs prior. Follow-up and Disposition History Recorded Encounter Status:Closed by LORI CAN MD on 01/09/18 COMP METABOLIC PANEL Collected: 12/20/2017 Status: F Source: [place] 7:45 AM [facility] REPOSITORY TYPE CODE TESTS RESULT OUT OF REFERENCE UNITS RANGE LAB TP 6.3-8.0 g/dL Protein, Total 6.7 LAB ALB 3.9-4.9 g/dL Albumin 4.0 LAB CA 8.5-10.2 mg/dL Calcium, Total 9.3 LAB TBIL 0.2-1.3 mg/dL Bilirubin, Total 0.6 LAB ALKP 32-117 U/L Alkaline Phosphatase 81 LAB AST 13-35 U/L AST 20 LAB GLU 74-99 mg/dL Glucose High 109 Result Comment: The [place] [employer] (ADA) provides guidance for cutoff values for fasting glucose and random glucose. The ADA defines fasting as no caloric intake for at least 8 hours. Fas ting plasma glucose results between 100 to 125 mg/dL indicate increased risk for diabetes (prediabetes). Fasting plasma glucose results greater than or equal to 126 mg/dL meet the criteria for diagnosis of diabetes. In the absence of unequivocal hyperglycemia, results should be confirmed by repeat testing. In a patient with classic symptoms of hyperglycemia or hyperglycemic crisis, random plasma glucose results greater than or equal to 200 mg/dL meet the criteria for diagnosis of diabetes. Reference: Standards of Medical Care in Diabetes 2016, [place] [employer]. Diabetes Care. 2016.39(Suppl 1). LAB BUN 7-21 mg/dL BUN 15 LAB CRET 0.58-0.96 mg/dL Creatinine 0.67 LAB NA 136-144 mmol/L Sodium 144 LAB K 3.7-5.1 mmol/L Potassium 4.4 LAB CL 97-105 mmol/L Chloride High 106 LAB CO2 22-30 mmol/L CO2 24 LAB AGAP 9-18 mmol/L Anion Gap 14 LAB ALT 7-38 U/L ALT 14 LAB GFRAA eGFR- Amer. >60 LAB GFRNAA . eGFR-All Other Races >60 Result Comment: eGFR (Estimated GFR) Units of measure: mL/min/1.73 meters squared eGFR is derived from the reexpressed MDRD Study equation using the following parameters: serum creatinine, age, gender and race. The creatinine assay has been calibrated to be traceable to IDMS. An eGFR <60 mL/min/1.73m2 for >3 months is consistent with chronic kidney disease. Refer to KDOQI guidelines for clinical interpretation. In patients with unstable renal function, e.g. those with acute kidney injury, the eGFR may not accurately reflect actual GFR. Performed By: #### CMP, HBA1C #### [facility] [address] [place], [place] [id number] HEMOGLOBIN A1C Collected: 12/20/2017 Status: F Source: [place] 7:45 AM [facility] REPOSITORY TYPE CODE TESTS RESULT OUT OF REFERENCE UNITS RANGE LAB HGBA1C 4.3-5.6 % High Hemoglobin A1c 8.4 LAB HBA0 mg/dL Est. Average Glucose 194 Result Comment: eAG: (Estimated average glucose) is a calculated value from HgbA1c and is veterans service representative of the average blood glucose level in the last 2-3 month period. Performed By: #### CMP, HBA1C #### [facility] [address] [place], [place] [id number] CBC Collected: 11/12/2017 Status: F Source: [place] 1:38 PM [facility] REPOSITORY TYPE CODE TESTS RESULT OUT OF REFERENCE UNITS RANGE LAB WBC 3.70-11.00 k/uL WBC 8.77 LAB RBC 3.90-5.20 m/uL RBC 4.26 LAB HGB 11.5-15.5 g/dL Hemoglobin 13.9 LAB HCT 36.0-46.0 % Hematocrit 42.5 LAB MCV 80.0-100.0 fL MCV 99.8 LAB MCH 26.0-34.0 pG MCH 32.6 LAB MCHC 30.5-36.0 g/dL MCHC 32.7 LAB RDWCV 11.5-15.0 % RDW-CV 12.3 LAB PLTCT 150-400 k/uL Platelet Count 245 LAB MPV 9.0-12.7 fL MPV 11.6 LAB ABSNUC <0.01 k/uL Absolute nRBC <0.01 Performed By: #### CBC, CMP, HBA1C #### [facility] [address] [place], [place] [address] COMP METABOLIC PANEL Collected: 11/12/2017 Status: F Source: [place] 1:38 PM [facility] REPOSITORY TYPE CODE TESTS RESULT OUT OF REFERENCE UNITS RANGE LAB TP 6.3-8.0 g/dL Protein, Total 6.7 LAB ALB 3.9-4.9 g/dL Albumin 4.2 LAB CA 8.5-10.2 mg/dL Calcium, Total 9.7 LAB TBIL 0.2-1.3 mg/dL Bilirubin, Total 0.4 LAB ALKP 32-117 U/L Alkaline Phosphatase 117 LAB AST 13-35 U/L AST 21 LAB GLU 74-99 mg/dL Glucose High 265 Result Comment: The [place] Diabetes Association (ADA) provides guidance for cutoff values for fasting glucose and random glucose. The ADA defines fasting as no caloric intake for at least 8 hours. Fas ting plasma glucose results between 100 to 125 mg/dL indicate increased risk for diabetes (prediabetes). Fasting plasma glucose results greater than or equal to 126 mg/dL meet the criteria for diagnosis of diabetes. In the absence of unequivocal hyperglycemia, results should be confirmed by repeat testing. In a patient with classic symptoms of hyperglycemia or hyperglycemic crisis, random plasma glucose results greater than or equal to 200 mg/dL meet the criteria for diagnosis of diabetes. Reference: Standards of Medical Care in Diabetes 2016, [place] [employer]. Diabetes Care. 2016.39(Suppl 1). LAB BUN 7-21 mg/dL BUN 12 LAB CRET 0.58-0.96 mg/dL Creatinine 0.69 LAB NA 136-144 mmol/L Sodium 138 LAB K 3.7-5.1 mmol/L Potassium 4.3 LAB CL 97-105 mmol/L Chloride 98 LAB CO2 22-30 mmol/L CO2 26 LAB AGAP 9-18 mmol/L Anion Gap 14 LAB ALT 7-38 U/L ALT 17 LAB GFRAA eGFR- Amer. >60 LAB GFRNAA . eGFR-All Other Races >60 Result Comment: eGFR (Estimated GFR) Units of measure: mL/min/1.73 meters squared eGFR is derived from the reexpressed MDRD Study equation using the following parameters: serum creatinine, age, gender and race. The creatinine assay has been calibrated to be traceable to IDMS. An eGFR <60 mL/min/1.73m2 for >3 months is consistent with chronic kidney disease. Refer to KDOQI guidelines for clinical interpretation. In patients with unstable renal function, e.g. those with acute kidney injury, the eGFR may not accurately reflect actual GFR. Performed By: #### CBC, CMP, HBA1C #### [facility] [address] [place], [place] [address] HEMOGLOBIN A1C Collected: 11/12/2017 Status: F Source: [place] 1:38 PM [facility] REPOSITORY TYPE CODE TESTS RESULT OUT OF REFERENCE UNITS RANGE LAB HGBA1C 4.3-5.6 % High Hemoglobin A1c 9.2 LAB HBA0 mg/dL Est. Average Glucose 217 Result Comment: eAG: (Estimated average glucose) is a calculated value from HgbA1c and is veterans service representative of the average blood glucose level in the last 2-3 month period. Performed By: #### CBC, CMP, HBA1C #### [facility] [address] [place], [place] [address] PROGRESS Observed: 11/12/2017 Status: COMPLETED Source: [place] 12:42 PM [facility] REPOSITORY HNO ID: [id number] Author: Mi Doran) Virgilio Service: (none) Author Type: Nurse Specialist Type: Progress Notes Filed: 11/12/2017 5:17 PM Note Text: OUTPATIENT VISIT DATE November 12, 2017 OUTPATIENT VISIT TYPE ESTABLISHED PRIMARY CARE PHYSICIAN: Lori Can MD CHIEF COMPLAINT: Patient presents with: High Blood Sugar History of Present Illness: Magnolia Fisher is a 77 year old female who was last seen 07/2017 by Lori Can MD. She has been seen in the past for ACTIVE PROBLEM LIST Myalgia and Myositis, Unspecified Mixed Hyperlipidemia Essential Hypertension Obesity, Unspecified Degeneration of Cervical Intervertebral Disc Diabetes Mellitus (Hcc) Cervical radiculopathy Esophageal Reflux Retinal Hemorrhage Disorder of Bone and Cartilage, Unspecified Acute Gastritis Without Mention of Hemorrhage Diaphragmatic Hernia Without Mention of Obstruction Or Gangrene Depression Sleep Apnea Choledocholithiasis Chronic Cholecystitis Gastroparesis Since the last visit, she states that her slitter and rewinder machine operator stopped invokana and atorvastatin due to elevated liver enzymes. September 14, 2017 AST 121, total bili 1.70 direct bili 0.62 alkaline phosphatase 184 ALT 334 triglycerides 91 HDL 51 LDL 55 VLDL 18 total cholesterol 124. Repeat labs September 21 showed total protein 7.1 albumin 3.4 globulin 3.7 AST 24 total bili 0.8 direct bili 0.27 alkaline phosphatase 158 ALT 67. She reports significant stress with family situation and felt like she had a difficult appointment with her slitter and rewinder machine operator at her last visit. DIABETES MELLITUS: Since the changes made by her slitter and rewinder machine operator home blood sugars have been uncontrolled. She has noted high sugars in the morning at 345- 429 PM evening glucose 142-186. She reports feeling unwell off of the ankle, and with elevated glucose. She notes that she is feeling shaky. She can tell when her sugar is elevated. She reports increasing sliding scale insulin to 14 units with breakfast 20 units with lunch and 22 units with dinner. 35 units in the evening also Lantus. Without report of excessive thirst or increased frequency of urination, chest pain or dyspnea , numbness, tingling or pain in extremities, new or unusual visual symptoms, weight loss/gain, lightheadedness/dizziness and bowel changes/loose stools. Patient's last HgA1C was Hemoglobin A1C (%) Date Value 08/17/2017 8.8 04/12/2017 8.4 ) PAST MEDICAL HISTORY Diagnosis Date - Acute gastritis without mention of hemorrhage - Asthma - Coronary atherosclerosis of unspecified type of vessel, [place] or graft - Depression - Diaphragmatic hernia without mention of obstruction or gangrene - Esophageal reflux 07/29/2006 - Hypersomnia with sleep apnea, unspecified - Irritable bowel syndrome - Localized osteoarthrosis not specified whether primary or secondary, unspecified site - Myalgia and myositis, unspecified - Obesity, unspecified - Obstructive sleep apnea - Other and unspecified hyperlipidemia - Other specified gastritis - Retinal hemorrhage 02/27/2007 Dr. Yu - Type II or unspecified type diabetes mellitus without mention of complication, uncontrolled - Unspecified essential hypertension PAST SURGICAL HISTORY Procedure Laterality Date - APPENDECTOMY - BMD BONE DENSITY 12/2003 - BREAST BIOPSY - CABG, MIN INV, 2 ARTERL GRFT 2002 - DELIVERY ONLY , low cervical - CHOLECYSTECTOMY 03/27/2012 laproscopic, Dr. Walters - COLONOSCOP W/ OR W/O [facility] SPEC 08/23/2003 Colonoscopy - COLONOSCOP W/ OR W/O [facility] SPEC 06/10/2014 Colonoscopy - EGD W/O [facility] SPECIMEN W/BX 04/04/10 - ERCP W/O BRUSH/WASH SPECIMEN 03/28/12 Cholangiopancreatography (ERCP) inpt [facility] - HEART SURGERY HX - KNEE SCOPE,DIAGNOSTIC Arthroscopy, knee LEFT - LAP CHOLECYSTECT/CHOLANGIOGRAPHY 03-27-12 - LEFT HEART CATH,PERCUTANEOUS Cardiac cath, L heart - PAST SURGICAL HISTORY OF 05/2009 Right Rotator Cuff Repair Surgery - TOTAL ABDOM HYSTERECTOMY Hysterectomy, MIKO FAMILY HISTORY Problem Relation Age of Onset - COPD Mother - other (CHF [Other]) Mother - COPD Father - other (LUNG CANCER [Other]) Brother - Emphysema Brother - other (DIVERTICULITIS [Other]) Sister - other (Abdominal aneurysm [Other]) Father - other (Thoracic aneurysm [Other]) Sister - other (Abdominal aneurysm [Other]) Brother - other (Abdominal aneurysm [Other]) Sister - Thyroid Other 6 family member with thyroid issues (hyperthyroidism, cancer,hypothyroidism) Social History Substance Use Topics - Smoking status: Former Smoker - Smokeless tobacco: Never Used - Alcohol use No ALLERGIES: ALLERGIES Allergen Reactions - Lisinopril Cough Resolved after stopped medication - Seasonal Allergies Other: See Comments wheezing MEDICATIONS insulin glargine (LANTUS U-100 INSULIN) 100 unit/mL injection Inject 30 Units subcutaneously once daily. November 12, 2017 - increase to 38 units daily in evening. Titrate as directed up to 50 units etodolac (LODINE) 300 mg capsule Take 1 capsule by mouth once daily as needed. metoprolol succinate ER (TOPROL XL) 100 mg Tb24 Take 1 tablet by mouth once daily. losartan (COZAAR) 50 mg tablet Take 1 tablet by mouth once daily. insulin aspart U-100 (NOVOLOG FLEXPEN U-100 INSULIN) 100 unit/mL inpn Take subcutaneous injection 14 units with breakfast, 17 units with lunch and 17 units with supper and as directed. omeprazole (PRILOSEC) 20 mg capsule Take 1 capsule by mouth daily before breakfast. 1/2 hr before meal. Lancets lancets Test blood sugar(s) 3 times daily. Dx: Type 2 DM - Controlled E11.65 Insulin: Yes blood sugar diagnostic (ACCU-CHEK LENORE PLUS TEST STRP) test strip Test blood sugar(s) 3 times daily. Dx: Type 2 DM - Uncontrolled E11.65 Insulin: Yes Blood-Glucose Meter (ACCU-CHEK LENORE PLUS METER) [facility] Dispense 1 Meter Kit. Dx: E11.65 BD INSULIN SYRINGE UF II 1/2 mL 31 x 516 syrg USE DIRECTED WITH LANTUS loratadine (CLARITIN) 10 mg tablet Take 1 tablet by mouth once daily as needed. FOR ALLERGY SYMPTOMS nitroglycerin sublingual (NITROSTAT) 0.4 mg SL tablet Dissolve 1 tablet under the tongue as needed. If no pain relief call 911. Dr. Hoyos. Cholecalciferol, Vitamin D3, 2,000 unit Tab Take 1 capsule by mouth one time daily albuterol HFA (PROAIR HFA) 90 mcg/actuation inhaler Inhale 2 Puffs as instructed every 4 hours as needed. canagliflozin (INVOKANA) 300 mg tablet Take 1 tablet by mouth daily before breakfast. atorvastatin (LIPITOR) 10 mg tablet Take 1 tablet by mouth once daily. krokchydg-[id number]-algal oil (METANX, ALGAL OIL,) 3 mg-35 mg-2 mg -90.314 mg cap Take 1 capsule by mouth three times daily. vitamin b complex tab Take 1 tablet by mouth once daily. ubidecarenone Q-10 50 mg capsule Take 1 capsule by mouth once daily. NORVASC 5 MG ORAL TAB Take one(1) tablet daily. REVIEW OF SYSTEMS: GENERAL: Negative for: Weight loss or gain, Fever or Chills, Weakness and Sleep difficulties. Physical Examination: BP 126/68 Pulse 64 Resp 16 Wt 168 lb (76.2kg) General appearance: Well appearing, alert, in no acute distress, well-hydrated, well nourished. Skin: Skin color, texture, turgor normal, no suspicious rashes or lesions Neck: Supple, no adenopathy; thyroid symmetric, normal size, no bruits Lungs: Lungs clear to auscultation. No wheezing, rhonchi, rales Heart: RRR without murmur, gallop, or rubs. No ectopy Abdomen: Normal abdominal exam, Abdomen soft, non-tender. Bowel sounds normal. No masses, organomegaly Extremities: No edema, skin discoloration, clubbing or cyanosis. Good capillary refill. Peripheral pulses: Normal Neuro: Gait normal. Sensation grossly intact. Reviewed chart, outside records, tests I personally interviewed, confirmed and edited the above information if obtained by others. TESTING: Glucose (mg/dL) Date Value 08/17/2017 143 Potassium (mmol/L) Date Value 08/17/2017 4.8 Sodium (mmol/L) Date Value 08/17/2017 141 Chloride (mmol/L) Date Value 08/17/2017 103 CO2 (mmol/L) Date Value 08/17/2017 24 Creatinine (mg/dL) Date Value 08/17/2017 0.70 BUN (mg/dL) Date Value 08/17/2017 12 Anion Gap (mmol/L) Date Value 08/17/2017 14 Calcium (mg/dL) Date Value 08/17/2017 9.4 Glucose (mg/dL) Date Value 08/17/2017 143 Potassium (mmol/L) Date Value 08/17/2017 4.8 Sodium (mmol/L) Date Value 08/17/2017 141 Chloride (mmol/L) Date Value 08/17/2017 103 CO2 (mmol/L) Date Value 08/17/2017 24 Creatinine (mg/dL) Date Value 08/17/2017 0.70 BUN (mg/dL) Date Value 08/17/2017 12 Anion Gap (mmol/L) Date Value 08/17/2017 14 Calcium (mg/dL) Date Value 08/17/2017 9.4 Protein, Total (g/dL) Date Value 03/04/2015 6.9 Albumin (g/dL) Date Value 03/04/2015 4.3 Bilirubin, Total (mg/dL) Date Value 03/04/2015 0.5 Alkaline Phosphatase (U/L) Date Value 03/04/2015 80 AST (U/L) Date Value 03/04/2015 26 ALT (U/L) Date Value 03/04/2015 16 Hemoglobin (g/dL) Date Value 01/20/2015 14.3 Hematocrit (%) Date Value 01/20/2015 43.4 WBC (k/uL) Date Value 01/20/2015 6.81 Cholesterol, Total (mg/dL) Date Value 08/17/2017 151 Cholesterol (no units) Date Value 09/14/2017 124 HDL Cholesterol Date Value 09/14/2017 51 08/17/2017 57 mg/dL LDL Cholesterol Date Value 09/14/2017 55 08/17/2017 77 mg/dL Triglyceride Date Value 09/14/2017 91 08/17/2017 86 mg/dL Hemoglobin A1C Date Value Ref Range Status 08/17/2017 8.8 (H) 4.3 - 5.6 % Final 04/12/2017 8.4 (H) 4.3 - 5.6 % Final 09/20/2016 8.0 (H) 4.3 - 5.6 % Final Comment: [place] [employer] guidelines indicate that patients with HgbA1c in the range 5.7-6.4% are at increased risk for development of diabetes, and intervention by lifestyle modification may be beneficial. HgbA1c greater or equal to 6.5% is considered diagnostic of diabetes. 05/22/2016 8.6 (H) 4.3 - 5.6 % Final Comment: [place] [employer] guidelines indicate that patients with HgbA1c in the range 5.7-6.4% are at increased risk for development of diabetes, and intervention by lifestyle modification may be beneficial. HgbA1c greater or equal to 6.5% is considered diagnostic of diabetes. 12/19/2015 8.4 (H) 4.3 - 5.6 % Final Comment: [place] [employer] guidelines indicate that patients with HgbA1c in the range 5.7-6.4% are at increased risk for development of diabetes, and intervention by lifestyle modification may be beneficial. HgbA1c greater or equal to 6.5% is considered diagnostic of diabetes. Ejection Fraction: No results found IMPRESSION: Ms. Fisher is a 77 year old woman presents for follow up of diabetes mellitusm uncontrolled since Invokan discontinued per slitter and rewinder machine operator due to elevated liver enzymes After my examination and review of data, I make the following recommendations. PLAN AND RECOMMENDATIONS: 1. Type 2 diabetes mellitus without complication, with long- term current use of insulin (HCC) - ICD9: 250.00, V58.67, ICD10: E11.9, Z79.4 (primary diagnosis) - INSULIN ASPART U-100 100 UNIT/ML SUBCUTANEOUS PEN 2. Elevated liver enzymes - ICD9: 790.5, ICD10: R74.8 Increase lantus insulin to 38 units in evening. Continue with sliding scale insulin unchanged. Check labs today. Call and let us know if BS remaining above 250 after the above changes this or Saturday Advised to go to ER if develops chest pain, shortness of breath, or severe worsening of symptoms. Discussed risks, benefits, alternatives, and potential side effects of medications. Ms. Fisher expressed understanding and agreed with the plan. Mi Poole APRN.NICHOLAS CNOV Observed: 11/12/2017 Status: COMPLETED Source: [place] 12:40 PM [facility] REPOSITORY Office Visit (INTMWS) MAGNOLIA FISHER ([id number]) 1940 F BLD Date Time Provider Department 11/12/17 12:40 PM MI POOLE ([facility]) INTMWS During your visit today, we recorded the following information about you: Pulse Respiration Blood pressure Weight 64/minute 16/minute 126/68 76.2 kg Mi Poole APRN.CNS 11/12/2017 5:17 PM Signed OUTPATIENT VISIT DATE November 12, 2017 OUTPATIENT VISIT TYPE ESTABLISHED PRIMARY CARE PHYSICIAN: Lori Can MD CHIEF COMPLAINT: Patient presents with: High Blood Sugar History of Present Illness: Magnolia Fisher is a 77 year old female who was last seen 07/2017 by Lori Can MD. She has been seen in the past for ACTIVE PROBLEM LIST Myalgia and Myositis, Unspecified Mixed Hyperlipidemia Essential Hypertension Obesity, Unspecified Degeneration of Cervical Intervertebral Disc Diabetes Mellitus (Hcc) Cervical radiculopathy Esophageal Reflux Retinal Hemorrhage Disorder of Bone and Cartilage, Unspecified Acute Gastritis Without Mention of Hemorrhage Diaphragmatic Hernia Without Mention of Obstruction Or Gangrene Depression Sleep Apnea Choledocholithiasis Chronic Cholecystitis Gastroparesis Since the last visit, she states that her slitter and rewinder machine operator stopped invokana and atorvastatin due to elevated liver enzymes. September 14, 2017 AST 121, total bili 1.70 direct bili 0.62 alkaline phosphatase 184 ALT 334 triglycerides 91 HDL 51 LDL 55 VLDL 18 total cholesterol 124. Repeat labs September 21 showed total protein 7.1 albumin 3.4 globulin 3.7 AST 24 total bili 0.8 direct bili 0.27 alkaline phosphatase 158 ALT 67. She reports significant stress with family situation and felt like she had a difficult appointment with her slitter and rewinder machine operator at her last visit. DIABETES MELLITUS: Since the changes made by her slitter and rewinder machine operator home blood sugars have been uncontrolled. She has noted high sugars in the morning at 345- 429 PM evening glucose 142-186. She reports feeling unwell off of the ankle, and with elevated glucose. She notes that she is feeling shaky. She can tell when her sugar is elevated. She reports increasing sliding scale insulin to 14 units with breakfast 20 units with lunch and 22 units with dinner. 35 units in the evening also Lantus. Without report of excessive thirst or increased frequency of urination, chest pain or dyspnea , numbness, tingling or pain in extremities, new or unusual visual symptoms, weight loss/gain, lightheadedness/dizziness and bowel changes/loose stools. Patient's last HgA1C was Hemoglobin A1C (%) Date Value 08/17/2017 8.8 04/12/2017 8.4 ) PAST MEDICAL HISTORY Diagnosis Date - Acute gastritis without mention of hemorrhage - Asthma - Coronary atherosclerosis of unspecified type of vessel, [place] or graft - Depression - Diaphragmatic hernia without mention of obstruction or gangrene - Esophageal reflux 07/29/2006 - Hypersomnia with sleep apnea, unspecified - Irritable bowel syndrome - Localized osteoarthrosis not specified whether primary or secondary, unspecified site - Myalgia and myositis, unspecified - Obesity, unspecified - Obstructive sleep apnea - Other and unspecified hyperlipidemia - Other specified gastritis - Retinal hemorrhage 02/27/2007 Dr. Yu - Type II or unspecified type diabetes mellitus without mention of complication, uncontrolled - Unspecified essential hypertension PAST SURGICAL HISTORY Procedure Laterality Date - APPENDECTOMY - BMD BONE DENSITY 12/2003 - BREAST BIOPSY - CABG, MIN INV, 2 ARTERL GRFT 2002 - DELIVERY ONLY , low cervical - CHOLECYSTECTOMY 03/27/2012 laproscopic, Dr. Walters - COLONOSCOP W/ OR W/O [facility] SPEC 08/23/2003 Colonoscopy - COLONOSCOP W/ OR W/O [facility] SPEC 06/10/2014 Colonoscopy - EGD W/O [facility] SPECIMEN W/BX 04/04/10 - ERCP W/O BRUSH/WASH SPECIMEN 03/28/12 Cholangiopancreatography (ERCP) inpt [facility] - HEART SURGERY HX - KNEE SCOPE,DIAGNOSTIC Arthroscopy, knee LEFT - LAP CHOLECYSTECT/CHOLANGIOGRAPHY 03-27-12 - LEFT HEART CATH,PERCUTANEOUS Cardiac cath, L heart - PAST SURGICAL HISTORY OF 05/2009 Right Rotator Cuff Repair Surgery - TOTAL ABDOM HYSTERECTOMY Hysterectomy, [facility] FAMILY HISTORY Problem Relation Age of Onset - COPD Mother - other (CHF [Other]) Mother - COPD Father - other (LUNG CANCER [Other]) Brother - Emphysema Brother - other (DIVERTICULITIS [Other]) Sister - other (Abdominal aneurysm [Other]) Father - other (Thoracic aneurysm [Other]) Sister - other (Abdominal aneurysm [Other]) Brother - other (Abdominal aneurysm [Other]) Sister - Thyroid Other 6 family member with thyroid issues (hyperthyroidism, cancer,hypothyroidism) Social History Substance Use Topics - Smoking status: Former Smoker - Smokeless tobacco: Never Used - Alcohol use No ALLERGIES: ALLERGIES Allergen Reactions - Lisinopril Cough Resolved after stopped medication - Seasonal Allergies Other: See Comments wheezing MEDICATIONS insulin glargine (LANTUS U-100 INSULIN) 100 unit/mL injection Inject 30 Units subcutaneously once daily. November 12, 2017 - increase to 38 units daily in evening. Titrate as directed up to 50 units etodolac (LODINE) 300 mg capsule Take 1 capsule by mouth once daily as needed. metoprolol succinate ER (TOPROL XL) 100 mg Tb24 Take 1 tablet by mouth once daily. losartan (COZAAR) 50 mg tablet Take 1 tablet by mouth once daily. insulin aspart U-100 (NOVOLOG FLEXPEN U-100 INSULIN) 100 unit/mL inpn Take subcutaneous injection 14 units with breakfast, 17 units with lunch and 17 units with supper and as directed. omeprazole (PRILOSEC) 20 mg capsule Take 1 capsule by mouth daily before breakfast. 1/2 hr before meal. Lancets lancets Test blood sugar(s) 3 times daily. Dx: Type 2 DM - Controlled E11.65 Insulin: Yes blood sugar diagnostic (ACCU-CHEK [place]ENORE PLUS TEST STRP) test strip Test blood sugar(s) 3 times daily. Dx: Type 2 DM - Uncontrolled .65 Insulin: Yes Blood-Glucose Meter (ACCU-CHEK LENORE PLUS METER) [facility] Dispense 1 Meter Kit. Dx: E11.65 BD INSULIN SYRINGE UF II 1/2 mL 31 x 5/16 syrg USE DIRECTED WITH LANTUS loratadine (CLARITIN) 10 mg tablet Take 1 tablet by mouth once daily as needed. FOR ALLERGY SYMPTOMS nitroglycerin sublingual (NITROSTAT) 0.4 mg SL tablet Dissolve 1 tablet under the tongue as needed. If no pain relief call 911. Dr. Hoyos. Cholecalciferol, Vitamin D3, 2,000 unit Tab Take 1 capsule by mouth one time daily albuterol HFA (PROAIR HFA) 90 mcg/actuation inhaler Inhale 2 Puffs as instructed every 4 hours as needed. canagliflozin (INVOKANA) 300 mg tablet Take 1 tablet by mouth daily before breakfast. atorvastatin (LIPITOR) 10 mg tablet Take 1 tablet by mouth once daily. hzheqaoti-[id number]-algal oil (METANX, ALGAL OIL,) 3 mg-35 mg-2 mg -90.314 mg cap Take 1 capsule by mouth three times daily. vitamin b complex tab Take 1 tablet by mouth once daily. ubidecarenone Q-10 50 mg capsule Take 1 capsule by mouth once daily. NORVASC 5 MG ORAL TAB Take one(1) tablet daily. REVIEW OF SYSTEMS: GENERAL: Negative for: Weight loss or gain, Fever or Chills, Weakness and Sleep difficulties. Physical Examination: BP 126/68 Pulse 64 Resp 16 Wt 168 lb (76.2kg) General appearance: Well appearing, alert, in no acute distress, well-hydrated, well nourished. Skin: Skin color, texture, turgor normal, no suspicious rashes or lesions Neck: Supple, no adenopathy; thyroid symmetric, normal size, no bruits Lungs: Lungs clear to auscultation. No wheezing, rhonchi, rales Heart: RRR without murmur, gallop, or rubs. No ectopy Abdomen: Normal abdominal exam, Abdomen soft, non-tender. Bowel sounds normal. No masses, organomegaly Extremities: No edema, skin discoloration, clubbing or cyanosis. Good capillary refill. Peripheral pulses: Normal Neuro: Gait normal. Sensation grossly intact. Reviewed chart, outside records, tests I personally interviewed, confirmed and edited the above information if obtained by others. TESTING: Glucose (mg/dL) Date Value 08/17/2017 143 Potassium (mmol/L) Date Value 08/17/2017 4.8 Sodium (mmol/L) Date Value 08/17/2017 141 Chloride (mmol/L) Date Value 08/17/2017 103 CO2 (mmol/L) Date Value 08/17/2017 24 Creatinine (mg/dL) Date Value 08/17/2017 0.70 BUN (mg/dL) Date Value 08/17/2017 12 Anion Gap (mmol/L) Date Value 08/17/2017 14 Calcium (mg/dL) Date Value 08/17/2017 9.4 Glucose (mg/dL) Date Value 08/17/2017 143 Potassium (mmol/L) Date Value 08/17/2017 4.8 Sodium (mmol/L) Date Value 08/17/2017 141 Chloride (mmol/L) Date Value 08/17/2017 103 CO2 (mmol/L) Date Value 08/17/2017 24 Creatinine (mg/dL) Date Value 08/17/2017 0.70 BUN (mg/dL) Date Value 08/17/2017 12 Anion Gap (mmol/L) Date Value 08/17/2017 14 Calcium (mg/dL) Date Value 08/17/2017 9.4 Protein, Total (g/dL) Date Value 03/04/2015 6.9 Albumin (g/dL) Date Value 03/04/2015 4.3 Bilirubin, Total (mg/dL) Date Value 03/04/2015 0.5 Alkaline Phosphatase (U/L) Date Value 03/04/2015 80 AST (U/L) Date Value 03/04/2015 26 ALT (U/L) Date Value 03/04/2015 16 Hemoglobin (g/dL) Date Value 01/20/2015 14.3 Hematocrit (%) Date Value 01/20/2015 43.4 WBC (k/uL) Date Value 01/20/2015 6.81 Cholesterol, Total (mg/dL) Date Value 08/17/2017 151 Cholesterol (no units) Date Value 09/14/2017 124 HDL Cholesterol Date Value 09/14/2017 51 08/17/2017 57 mg/dL LDL Cholesterol Date Value 09/14/2017 55 08/17/2017 77 mg/dL Triglyceride Date Value 09/14/2017 91 08/17/2017 86 mg/dL Hemoglobin A1C Date Value Ref Range Status 08/17/2017 8.8 (H) 4.3 - 5.6 % Final 04/12/2017 8.4 (H) 4.3 - 5.6 % Final 09/20/2016 8.0 (H) 4.3 - 5.6 % Final Comment: [place] [employer] guidelines indicate that patients with HgbA1c in the range 5.7-6.4% are at increased risk for development of diabetes, and intervention by lifestyle modification may be beneficial. HgbA1c greater or equal to 6.5% is considered diagnostic of diabetes. 05/22/2016 8.6 (H) 4.3 - 5.6 % Final Comment: [place] [employer] guidelines indicate that patients with HgbA1c in the range 5.7-6.4% are at increased risk for development of diabetes, and intervention by lifestyle modification may be beneficial. HgbA1c greater or equal to 6.5% is considered diagnostic of diabetes. 12/19/2015 8.4 (H) 4.3 - 5.6 % Final Comment: [place] [employer] guidelines indicate that patients with HgbA1c in the range 5.7-6.4% are at increased risk for development of diabetes, and intervention by lifestyle modification may be beneficial. HgbA1c greater or equal to 6.5% is considered diagnostic of diabetes. Ejection Fraction: No results found IMPRESSION: Ms. Fisher is a 77 year old woman presents for follow up of diabetes mellitusm uncontrolled since Invokan discontinued per slitter and rewinder machine operator due to elevated liver enzymes After my examination and review of data, I make the following recommendations. PLAN AND RECOMMENDATIONS: 1. Type 2 diabetes mellitus without complication, with long- term current use of insulin (HCC) - ICD9: 250.00, V58.67, ICD10: E11.9, Z79.4 (primary diagnosis) - INSULIN ASPART U-100 100 UNIT/ML SUBCUTANEOUS PEN 2. Elevated liver enzymes - ICD9: 790.5, ICD10: R74.8 Increase lantus insulin to 38 units in evening. Continue with sliding scale insulin unchanged. Check labs today. Call and let us know if BS remaining above 250 after the above changes this or Saturday Advised to go to ER if develops chest pain, shortness of breath, or severe worsening of symptoms. Discussed risks, benefits, alternatives, and potential side effects of medications. Ms. Fisher expressed understanding and agreed with the plan. NAUN Vogt APRN.CNS 11/12/2017 1:25 PM Signed Increase lantus insulin to 38 units in evening. Continue with sliding scale insulin unchanged. Check labs today. Call and let us know if BS remaining above 250 after the above changes Referring Provider: SELF [[id number]] Allergies As of Date: 11/12/2017 Noted Allergy Reaction LISINOPRIL 06/06/2011 3 - Cough Comments: Resolved after stopped medication SEASONAL ALLERGIES 06/26/2013 14 - Other: See Comments Comments: wheezing Date Reviewed: 11/12/2017 Reviewed by: Rox Ellsworth LPN - Fully Assessed Reason for Visit: High Blood Sugar [212] Primary Visit Diagnosis:Type 2 diabetes mellitus without complication, with long-term current use of insulin (HCC) [E11.9, Z79.4] Other Visit Diagnosis:Elevated liver enzymes [R74.8] Order(s):insulin glargine (LANTUS U-100 INSULIN) 100 unit/mL injectionInject 30 Units subcutaneously once daily. November 12, 2017 - increase to 38 units daily in evening. Titrate as directed up to 50 unitsDisp: 3 VialRfl: 3 insulin aspart U-100 (NOVOLOG FLEXPEN U-100 INSULIN) 100 unit/mL inpnTake subcutaneous injection 14 units with breakfast, 20 units with lunch and 22 units with supper and as directed.Disp: 15 PenRfl: 3 Prescriptions as of 11/12/2017 Sig: INSULIN GLARGINE (U-100) 100 * Inject 30 Units subcutaneousl* INSULIN ASPART U-100 100 UNI* Take subcutaneous injection 1* ETODOLAC 300 MG CAPSULE Take 1 capsule by mouth once * METOPROLOL SUCCINATE ER 100 M* Take 1 tablet by mouth once d* LOSARTAN 50 MG TABLET Take 1 tablet by mouth once d* OMEPRAZOLE 20 MG CAPSULE,ELÍAS* Take 1 capsule by mouth daily* LANCETS Test blood sugar(s) 3 times d* BLOOD SUGAR DIAGNOSTIC STRIPS Test blood sugar(s) 3 times d* BLOOD-GLUCOSE METER Dispense 1 Meter Kit. Dx: E1* BD INSULIN SYRINGE ULT-FINE I* USE DIRECTED WITH LANTUS LORATADINE 10 MG TABLET Take 1 tablet by mouth once d* NITROGLYCERIN 0.4 MG SUBLINGU* Dissolve 1 tablet under the t* CHOLECALCIFEROL (VITAMIN D3) * Take 1 capsule by mouth one t* ALBUTEROL SULFATE HFA 90 MCG/* Inhale 2 Puffs as instructed * CANAGLIFLOZIN 300 MG TABLET Take 1 tablet by mouth daily * Patient not taking: Reported on 11/12/2017 ATORVASTATIN 10 MG TABLET Take 1 tablet by mouth once d* Patient not taking: Reported on 11/12/2017 LEVOMEFOLATE CA 3 MG-B6 35 MG* Take 1 capsule by mouth three* Patient not taking: Reported on 11/12/2017 VITAMIN B COMPLEX TABLET Take 1 tablet by mouth once d* COENZYME Q10 50 MG CAPSULE Take 1 capsule by mouth once * * NORVASC 5 MG TABLET Take one(1) tablet daily. Problem List As Of Date 11/12/2017 Noted Resolved MYALGIA AND MYOSITIS NOS [[id number]] Mixed hyperlipidemia [E78.2] Essential hypertension [I10] OBESITY NOS [E66.9] CERVICAL DISC DEGEN [M50.30] INVALID FOR* Diabetes mellitus (HCC) [E11.9] INVALID FOR* Cervical radiculopathy [[id number]] INVALID FOR* ESOPHAGEAL REFLUX [K21.9] INVALID FOR* RETINAL HEMORRHAGE [H35.60] INVALID FOR* More... BONE AND CARTILAGE DIS NOS [M89.9, M94.9] INVALID FOR* Acute gastritis without mention of hemorrhage [*INVALID FOR* Diaphragmatic hernia without mention of obstruc*INVALID FOR* Depression [F32.9] INVALID FOR* Sleep apnea [G47.30] INVALID FOR* More... Choledocholithiasis [K80.50] INVALID FOR* Chronic cholecystitis [K81.1] INVALID FOR* Gastroparesis [K31.84] INVALID FOR* Other instructions from your clinician: Increase lantus insulin to 38 units in evening. Continue with sliding scale insulin unchanged. Check labs today. Call and let us know if BS remaining above 250 after the above changes Prescriptions ordered this encounter Disp Refills Start End INSULIN GLARGINE (U-100) 100 UNIT/ML* 3 Vi* 3 11/12/2017 Class: Med Update Route: SUBCUTANEOUS Sig: Inject 30 Units subcutaneously once daily. November 12, 2017 - increase to 38 units daily in evening. Titrate as directed up to 50 units INSULIN ASPART U-100 100 UNIT/ML GRIGGS* 15 P* 3 11/12/2017 Class: Med Update Sig: Take subcutaneous injection 14 units with breakfast, 20 units with lunch and 22 units with supper and as directed. Medications Discontinued During This Encounter insulin glargine (LANTUS U-100 INSUL* 3 Vi* 3 08/22/2017 11/12/2017 Route: SUBCUTANEOUS Sig: Inject 30 Units subcutaneously once daily. Titrate as directed up to 50 units Patient taking differently: Inject 35 Units subcutaneously once daily. Titrate as directed up to 50 units Disc: Reason for discontinue is not on file. insulin aspart U-100 (NOVOLOG FLEXPE* 15 P* 3 08/22/2017 11/12/2017 Sig: Take subcutaneous injection 14 units with breakfast, 17 units with lunch and 17 units with supper and as directed. Patient taking differently: Take subcutaneous injection 14 units with breakfast, 20 units with lunch and 22 units with supper and as directed. Disc: Reason for discontinue is not on file. Encounter Status:Closed by MI COMBS on 11/12/17 CARDIOLOGY VISIT Observed: 09/24/2017 Status: F Source: ANGE REPORT 12:09 PM [facility] REPOSITORY [facility] [address] [place], [place] [address]. [address] [place] [address] OFFICE VISIT Date of Service: 09/24/17 MR#: [id number] Acct: [id number] Name: PHILLIPMAGNOLIA K Rep #: [id number] : 1940 Provider: Guicho Hoyos MD Age/Sex: 77/F Location: [facility] Status: Signed HPI [facility] Chief Complaint: Follow up visit Details: MAGNOLIA FISHER, is a 77 F who presents to the office today for a cardiovascular follow-up. She is a history of coronary artery disease with bypass surgery in 1998. She had an MACARIO to the LAD, left radial to the diagonal. Heart catheterization in 2007 demonstrated left main normal, LAD totally occluded, ramus intermedius 30-40% stenosis, circumflex with no significant disease, RCA small with no significant disease, radial artery to the diagonal patent, MACARIO to LAD patent. She has been doing well otherwise denying any chest pain or shortness breath or paroxysmal nocturnal dyspnea pedal edema she has been compliant with all her medications. You do remember that she did have some liver problems with abnormal liver function tests. She has gone off her cholesterol medications as well as others and her liver function tests have improved. Her last Stress test in 2012 was negative for ischemia at a moderate workload. Intake Vital Signs09/24/17 Height 5 ft 1 in 09/24/17 Weight: 164 lb 9 oz 09/24/17 Body Mass Index (BMI) 31.1 09/24/17 Blood Pressure 120/60 Intake Visit Reasons: 6 M FU Accompanied by: Is patient in pain?: Yes (abdominal pain) Pain scale (1-10): 3 Allergies lisinopril Adverse Reaction (Verified 09/23/17 20:00) COUGH shellfish Allergy (Uncoded 04/16/17 16:58) lip swelling, diarrhea Medications Losartan Potassium [Cozaar] 50 mg PO DAILY 02/04/13 [History Confirmed 09/23/17] Cholecalciferol (Vitamin D3) [Vitamin D] 1,000 units PO DAILY 03/27/13 [History Confirmed 09/23/17] Insulin Glargine [Lantus SoloStar Pen] 30 units SC QHS 03/27/13 [History Confirmed 09/23/17] Metoprolol(XL)Succ [Toprol Xl] 100 mg PO DAILY 03/27/13 [History Confirmed 09/23/17] Loratadine 10 mg PO DAILY PRN PRN 04/16/17 [History Confirmed 09/23/17] Nitroglycerin [Nitrostat] 0.4 mg SL TID PRN PRN 04/16/17 [History Confirmed 09/23/17] Ubidecarenone [Co Q-10] 50 mg PO DAILY 04/16/17 [History Confirmed 09/23/17] Ursodiol 300 mg PO DAILY 04/16/17 [History Confirmed 09/23/17] etodolac 400 mg tablet 400 mg PO BID 09/23/17 [History Confirmed 09/23/17] insulin lispro (U-100) 100 unit/mL subcutaneous solution 20 unit SC .COMPLEX 09/23/17 [History Confirmed 09/23/17] omeprazole 20 mg capsule,delayed release 20 mg PO DAILY cap 09/23/17 [History Confirmed 09/23/17] PFSH Medical History Elevated liver enzymes (Acute) Pancreatitis due to biliary obstruction (Acute) Hypertension (Chronic) Atherosclerotic heart disease of [place] coronary artery without angina pectoris (Chronic) Hyperlipidemia (Chronic) Diabetes mellitus, type 2 (Chronic) Surgical History Hx of CABG (Chronic 1998) Family History Father Aortic aneurysm Hypertension CAD (coronary artery disease) Brother Hypertension Diabetes COPD (chronic obstructive pulmonary disease) Sister Hypertension Aortic aneurysm Daughter Hypertension Cancer Mother COPD (chronic obstructive pulmonary disease) CHF (congestive heart failure) Social History Smoking Status: Former smoker alcohol intake: never substance use type: does not use caffeine: Yes Type: coffee, tea what type of physical activity do you participate in: walking frequency: daily duration: 15-30 minutes/day seatbelt use: always do you feel safe at home: Yes ROS Const Const: Positive for fatigue, poor appetite and other (Elevated liver enzymes, stone in pancreatic duct (had cholecystectomy)); negative for weakness, body ache, fever(s), headache(s), chills, frequent falls, night sweats, daytime sleepiness, difficulty sleeping, excessive sweating, weight gain, weight loss, increased appetite or anorexia Eyes Eyes: Negative for blind spots, loss of peripheral vision, transient loss of vision, blurry vision, change in vision, double vision, floaters, tunnel vision or other ENT ENT: Negative for headache(s), dizziness, hearing loss, tinnitus, Nosebleed/epistaxis, balance problems, post nasal drip, lip swelling, tongue swelling, bleeding gums, hoarseness, neck pain, dry mouth or other Cardio Chest Pain: No Palpitations: Yes (just occasional) feels like its: skipping, fast Edema: None Muscle aches with walking: None Resp Respiratory: Positive for SOB with activity (occasional); negative for SOB at rest, SOB orthopnea\SOB lying down, Coughing up blood/hemoptysis, chest congestion, pain on inspiration, snoring, stridor, wheezing, crackles, paroxysmal nocturnal dyspnea or other GI GI: Positive for nausea and other (abdominal pain from blocked pancreatic duct); negative vomiting, heartburn, constipation, belching, bloating, cramping, vomiting blood/hematemesis, bright, red blood in stools, black,tarry stools, loose stools or Difficulty Swallowing : Negative for hematuria, frequent nighttime urination/ nocturia, erectile dysfunction or abnormal vaginal bleeding Musc Musc: Negative for balance problems, muscle aches/ myalgia, muscle weakness or joint pain Skin Skin: Negative redness, non-healing lesions, rash, unusual bruising, skin ulcer, wounds, jaundice or other Neuro Neuro: Negative for weakness, headache(s), frequent falls, blurry vision, double vision, dizziness, lightheadedness, near syncope, syncope, orthostatic symptoms, confusion, memory loss, restless legs, vertigo, seizures, lack of coordination or other Martin Hematologic/Lymphatic: Negative for easy bleeding, easy bruising, enlarged lymph nodes or other Endo Endo: Positive for fatigue; negative for excessive sweating, cold intolerance, heat intolerance, flushing, increased thirst/drinking, increased hunger, hair loss, hair growth or other Psych Psych: Negative for anxiety, depression, thoughts of harming anyone, thoughts of harming yourself, visual hallucinations, panic attacks or audible hallucinations Allergy Allergy/Immunology: Negative for lip swelling, Negative for tongue swelling, Negative for rash, Negative for throat swelling, Negative for hives Cardiology Exam Const Appearance: cooperative, healthy appearing, well developed, well groomed and no acute distress Nutritional Appearance: well nourished and average body habitus Orientation: alert, awake and oriented x3 Head Head: normal to inspection, normocephalic and atraumatic Ears: hearing grossly normal bilaterally and external ears normal Nose: external nose normal, nasal mucous membranes and turbinates normal, nares normal, septum normal, no nasal discharge Face and Sinus: face symmetric Mouth: oral mucosae normal, tongue normal, oropharynx normal and moist mucous membranes Teeth and gingiva: dentition normal Throat: posterior oropharynx normal, tonsils normal and uvula midline Eyes General: appearance normal, both eyes and all related structures Eyelids: eyelids normal Conjunctivae: conjunctivae normal Pupils: PERRL, normal by confrontation and accommodation normal EOM: EOM intact bilaterally Neck Neck: normal visual inspection, trachea midline and no JVD JVD: +5 Carotids: normal carotid upstroke and bounding pulses Chest Chest inspection: normal inspection of the chest, symmetric chest movement and normal respiratory effort Auscultation: Bilateral: Clear to Auscultation Cardio Palpation: normal PMI Rate: regular rate Rhythm: regular rhythm Heart sounds: S1 normal, S2 normal and normal, physiologic split S2; negative rub, gallop or murmur GI GI: normal to inspection, soft, no hepatosplenomegaly and bowel sounds present Neuro General: alert, awake, oriented x3, no focal sensory deficit, gait normal and moves all extremities Skin Skin: no rashes or lesions noted Extremities Pulses: Normal: Right Femoral Pulse, Left Femoral Pulse, Right Dorsalis Pedis Pulse, Left Dorsalis Pedis Pulse, Right Posterior Tibial Pulse, Left Posterior Tibial Pulse, Right Radial Pulse, Left Radial Pulse Lower Extremity Edema: None: Bilateral Musculoskel Musculoskeletal: No joint tenderness Psych Psychological: normal affect Assessment AND Plan 1. 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 Bayron Aguilar @ [facility] Plan She he was to be doing well at this time with her last stress test being negative for ischemia. She has not had any dizziness or diaphoresis. At this time I recommend that we continue following her clinically and see how she does. 2. Essential hypertension I10 Plan Her blood pressure is under good control at this time I would not recommend that we make any changes once again. 3. Carotid bruit, unspecified laterality R09.89 Plan She did have bilateral carotid bruits detected and her ultrasound did not demonstrate any significant stenosis of 50%. My recommendation is for her to continue with risk factor modification. Unfortunately she cannot be on cholesterol medications at this time. 4. Pure hypercholesterolemia E78.00; E78.0 Plan She does have a history of hyperlipidemia. Unfortunately due to abnormal liver function tests she has been taking off her cholesterol medication as well as a coenzyme Q 10. Her lipid profile however is excellent with a total cholesterol 124 LDL of 55 HDL 51. I am suggesting that she watch her diet. Her AST is back to normal but her ALT is mildly elevated at 67 as well as alkaline phosphatase which is also mildly elevated. I would recommend repeating this in the next 3 months. Thank you for allowing me to participate in the care of your patient. 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 Essential hypertension I10 Hypertension type: essential hypertension Carotid bruit, unspecified laterality R09.89 Laterality: unspecified laterality Pure hypercholesterolemia E78.00; E78.0 Hyperlipidemia type: pure hypercholesterolemia 09/24/17 1209 <Electronically signed by Guicho Hoyos MD> Date Guicho Hoyos MD Cosigner Signature: Date (if applicable) CC: Lori Can MD LIVER PROFILE Collected: 09/21/2017 Status: F Source: [place] 8:50 AM [facility] [place] REPOSITORY TYPE CODE TESTS RESULT OUT OF RANGE REFERENCE UNITS LAB L501.1500 6.4-8.2 g/dL Normal T PROT 7.1 LAB L501.1800 3.2-5.0 g/dL Normal ALB 3.4 LAB L501.1950 2.2-4.2 g/dL Normal GLOB 3.7 LAB L501.4100 15-37 U/L Normal AST 24 LAB L501.4305 45-117 U/L High ALK P 158 LAB L501.4405 13-56 U/L High ALT 67 LAB L501.4600 0.20-1.00 mg/dL Normal T BILI 0.80 LAB L501.4700 0.00-0.30 mg/dL Normal D BILI 0.27 Performed By: #### L500.3400 #### [facility] [address] [place], [place], [address] LIVER PROFILE Collected: 09/14/2017 Status: F Source: [place] 7:31 AM [facility] REPOSITORY Order Comment: Order Date: 03/01/17 Order Info: [id number] - *Hepatic Function Panel Order Info: [id number] - *Lipid Profile CC PCP Comments: 12 hours fasting, may have water. TYPE CODE TESTS RESULT OUT OF RANGE REFERENCE UNITS LAB L501.1500 6.4-8.2 g/dL Normal T PROT 7.1 LAB L501.1800 3.2-5.0 g/dL Normal ALB 3.4 LAB L501.1950 2.2-4.2 g/dL Normal GLOB 3.7 LAB L501.4100 15-37 U/L High AST 121 LAB L501.4305 45-117 U/L High ALK P 184 LAB L501.4405 13-56 U/L High ALT 334 LAB L501.4600 0.20-1.00 mg/dL High T BILI 1.70 LAB L501.4700 0.00-0.30 mg/dL High D BILI 0.62 Performed By: #### L500.3400 #### [facility] [address] [place], [place], [id number] LIPID PROFILE Collected: 09/14/2017 Status: F Source: [place] 7:31 AM [facility] [place] REPOSITORY Order Comment: Order Date: 03/01/17 Order Info: [id number] - *Hepatic Function Panel Order Info: [id number] - *Lipid Profile CC PCP Comments: 12 hours fasting, may have water. TYPE CODE TESTS RESULT OUT OF RANGE REFERENCE UNITS LAB L501.4900 200 mg/dL Normal CHOL 124 Result Comment: <200 mg/dL Desirable 200-240 mg/dL Borderline >240 mg/dL High Risk LAB L501.5000 mg/dL Normal TRIG 91 Result Comment: The drugs N-Acetylcysteine and Metamizole may falsely depress this assay. Serum Triglycerides Reference Interval Normal <150 mg/dL Borderline high 150 - 199 mg/dL High 200 - 499 mg/dL Very High > or = 500 mg/dL LAB L501.6400 mg/dL Normal HDL 51 Result Comment: The drugs N-Acetylcysteine and Metamizole may falsely depress this assay. Reference Range HDL <40 mg/dL Low HDL Cholesterol HDL >or= 60 mg/dL High HDL Cholesterol LAB L501.6500 0-130 mg/dL Normal LDL 55 LAB L501.6600 5-40 mg/dL Normal VLDL 18 Performed By: #### L500.4100 #### [facility] [address] [place], [address] PROGRESS Observed: 08/22/2017 Status: COMPLETED Source: [place] 9:34 AM [facility] REPOSITORY O ID: [id number] Author: Lori Can Service: (none) Author Type: Physician Type: Progress Notes Filed: 08/22/2017 10:13 PM Note Text: Patient presents with: 4 Month F/u SUBJECTIVE: Magnolia Fisher is a 77 year old year old lady here today for 4 month follow up appointment for review of medical conditions. Issues with arthritis--weather changes Hand problems. Deformity of fingers. Knees and hips and neck bothering her a couple weeks ago. Now mostly neck bothering her. Lodine can help but does not want to take too much because of risk of stomach issues. Cannot work 2 days in a row in the yard. Has to rest because joints and muscles get too sore. Protonix did not help with reflux so went back to omeprazole. Saw Dr. Contreras and as concerned about possible recurrent gallstones (though s/p cholecystectomy, had episodes of passing gallstones), but after endoscopy, gave Levsin and Protonix/ Levsin for cramping pain--helps some. Still walking her dog. Found out that her dog used to take a nap at another neighbor's porch with their cat when the dog's first educational administration teacher was alive. Now friends with that neighbor. Someone can talk things out with. Answer to prayers. Stressors with taking care of who has failing health and can be really difficult to deal with. Denies symptoms of excessive thirst or increased frequency of urination, chest pain or dyspnea , numbness, tingling or pain in extremities, new or unusual visual symptoms and low sugar/hypoglycemic reactions PAST MEDICAL HISTORY Diagnosis Date - Acute gastritis without mention of hemorrhage - Asthma - Coronary atherosclerosis of unspecified type of vessel, [place] or graft - Depression - Diaphragmatic hernia without mention of obstruction or gangrene - Esophageal reflux 07/29/2006 - Hypersomnia with sleep apnea, unspecified - Irritable bowel syndrome - Localized osteoarthrosis not specified whether primary or secondary, unspecified site - Myalgia and myositis, unspecified - Obesity, unspecified - Obstructive sleep apnea - Other and unspecified hyperlipidemia - Other specified gastritis - Retinal hemorrhage 02/27/2007 Dr. Yu - Type II or unspecified type diabetes mellitus without mention of complication, uncontrolled - Unspecified essential hypertension Current Outpatient Prescriptions: canagliflozin (INVOKANA) 300 mg tablet Take 1 tablet by mouth daily before breakfast. etodolac (LODINE) 300 mg capsule Take 1 capsule by mouth once daily as needed. metoprolol succinate ER (TOPROL XL) 100 mg Tb24 TAKE 1 TABLET ONE TIME DAILY losartan (COZAAR) 50 mg tablet TAKE 1 TABLET ONE TIME DAILY atorvastatin (LIPITOR) 10 mg tablet TAKE 1 TABLET BY MOUTH ONCE DAILY. insulin aspart (NOVOLOG FLEXPEN) 100 unit/mL inpn Take subcutaneous injection 14 units with breakfast, 17 units with lunch and 17 units with supper and as directed. insulin glargine (LANTUS) 100 unit/mL injection Inject 30 Units subcutaneously once daily. Titrate as directed up to 50 units [id number]-algal oil (METANX, ALGAL OIL,) 3 mg-35 mg-2 mg -90.314 mg cap Take 1 capsule by mouth three times daily. Lancets lancets Test blood sugar(s) 3 times daily. Dx: Type 2 DM - Controlled E11.65 Insulin: Yes blood sugar diagnostic (ACCU-CHEK LENORE PLUS TEST STRP) test strip Test blood sugar(s) 3 times daily. Dx: Type 2 DM - Uncontrolled E11.65 Insulin: Yes Blood-Glucose Meter (ACCU-CHEK LENORE PLUS METER) mis Dispense 1 Meter Kit. Dx: E11.65 BD INSULIN SYRINGE UF II 1/2 mL 31 x 5/16 syrg USE DIRECTED WITH LANTUS loratadine (CLARITIN) 10 mg tablet Take 1 tablet by mouth once daily as needed. FOR ALLERGY SYMPTOMS nitroglycerin sublingual (NITROSTAT) 0.4 mg SL tablet Dissolve 1 tablet under the tongue as needed. If no pain relief call 911. Dr. Hoyos. vitamin b complex tab Take 1 tablet by mouth once daily. Cholecalciferol, Vitamin D3, 2,000 unit Tab Take 1 capsule by mouth one time daily ubidecarenone Q-10 50 mg capsule Take 1 capsule by mouth once daily. albuterol HFA (PROAIR HFA) 90 mcg/actuation inhaler Inhale 2 Puffs as instructed every 4 hours as needed. NORVASC 5 MG ORAL TAB Take one(1) tablet daily. No current facility-administered medications for this visit. OBJECTIVE: BP 118/52 (BP Site: Left Arm, BP Position: Sitting, BP Cuff Size: Regular Adult) Pulse 70 Resp 16 Wt 72.6 kg (160 lb) SpO2 98% BMI 30.23 kg/m? Patient is alert, oriented times 3, no apparent distress, affect is bright, reactive. Last 5 Encounter BP Readings: Date: BP: 08/22/2017 118/52 04/15/2017 102/62 09/25/2016 112/64 05/25/2016 112/62 12/27/2015 118/60 Last 5 Encounter Wt Readings: Date: Wt: 08/22/2017 72.6 kg (160 lb) 04/15/2017 72.6 kg (160 lb) 09/25/2016 73.5 kg (162 lb) 05/25/2016 73 kg (161 lb) 12/27/2015 74.4 kg (164 lb) Heart: Regular rate, rhythm, no murmurs, gallops, rubs. Lungs: Clear to auscultation, bilaterally, breathing non labored. Ext: No cyanosis, clubbing, or edema. DJD changes in hands with some fingers with ulnar deviation from the PIP and/or DIP joints but not really severe; no active synovitis. Component Latest Ref Rng AND Units 04/12/2017 08/17/2017 Glucose 74 - 99 mg/dL 120 (H) 143 (H) BUN 7 - 21 mg/dL 14 12 Creatinine 0.58 - 0.96 mg/dL 0.73 0.70 Sodium 136 - 144 mmol/L 142 141 Potassium 3.7 - 5.1 mmol/L 4.5 4.8 Chloride 97 - 105 mmol/L 103 103 CO2 22 - 30 mmol/L 24 24 Anion Gap 9 - 18 mmol/L 15 14 Calcium 8.5 - 10.2 mg/dL 9.0 9.4 eGFR- >60 >60 eGFR-All Other Races . >60 >60 Triglyceride <150 mg/dL 98 86 Cholesterol, Total <200 mg/dL 146 151 HDL Cholesterol >39 mg/dL 52 (L) 57 VLDL Cholesterol <30 mg/dL 20 17 LDL Cholesterol <100 mg/dL 74 77 Fasting Time hrs 12 12 TC:HDL Ratio <5.10 2.81 2.65 LDL:HDL Ratio <2.54 1.42 1.35 Non HDL Cholesterol <130 mg/dL 94 94 Creatinine, Ur Random (UCRR) 20 - 300 mg/dL 74.3 Albumin, Urine Random 0.0 - 23.0 mg/L <12.0 Albumin/Creat Ratio 0 - 30 mg/g Not calculated Hemoglobin A1C 4.3 - 5.6 % 8.4 (H) 8.8 (H) Estimated Average Glucose mg/dL 194 206 ASSESSMENT AND PLAN: Encounter Diagnosis ICD-10-CM 1. Type 2 diabetes mellitus without complication, with long- term current use of insulin ([facility]) E11.9 canagliflozin (INVOKANA) 300 mg tablet Z79.4 HGB A1C COMP METABOLIC PANEL 2. 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 Essential hypertension I10 COMP METABOLIC PANEL CBC 4. Mixed hyperlipidemia E78.2 5. Class 1 obesity due to excess calories with serious comorbidity and body mass index (BMI) of 30.0 to 30.9 in adult E66.09 Z68.30 6. Reactive depression F32.9 Additional Medical Conditions Last edited 08/22/17 22:12 EDT by Lori Can MD Sugar control not as good with HgA1C up to 8.8. Weight stayed down at 160 this winter. Continue present management. Doing fine with current meds without adverse effects. Discussed arthritis--will try OTC topicals to see if those help. Not severe enough that wants to see Rheumatology to rule in inflammatory arthritis and take aggressive treatment even if indicated because of potential adverse effects. Lipids with excellent control. BP controlled. Continue present management. Depression discussed. Can get really down at times, but has good support. Florence helping her through the tough times. Walking her dog helps. Emotional support given. Continue present management. Above issues addressed with patient. Patient involved in shared decision making for management of her medical issues. History and medications reviewed. Epic updated as needed Refills taken care of and meds adjusted as indicated after reviewed history, exam and labs. Health Maintenance reviewed. Updated record and/or ordered tests as recorded. Encouraged on efforts at healthy diet and regular exercise and adequate sleep. The majority of the visit was spent counseling and/or coordinating care for the patient. Wzwt-jf-ocie time was at least 25 minutes. Lori Can MD CNOV Observed: 08/22/2017 Status: COMPLETED Source: [place] 9:20 AM [facility] REPOSITORY Office Visit (INTMWS) PHILLIPMAGNOLIA Cooper ([id number]) 1940 F BLD Date Time Provider Department 08/22/17 9:20 AM LORI CAN IN[facility] During your visit today, we recorded the following information about you: Pulse Respiration Blood pressure Weight 70/minute 16/minute 118/52 72.6 kg Lori Can MD 08/22/2017 10:13 PM Signed Patient presents with: 4 Month F/u SUBJECTIVE: Mangolia Gargon is a 77 year old year old lady here today for 4 month follow up appointment for review of medical conditions. Issues with arthritis--weather changes Hand problems. Deformity of fingers. Knees and hips and neck bothering her a couple weeks ago. Now mostly neck bothering her. Lodine can help but does not want to take too much because of risk of stomach issues. Cannot work 2 days in a row in the yard. Has to rest because joints and muscles get too sore. Protonix did not help with reflux so went back to omeprazole. Saw Dr. Contreras and as concerned about possible recurrent gallstones (though s/p cholecystectomy, had episodes of passing gallstones), but after endoscopy, gave Levsin and Protonix/ Levsin for cramping pain--helps some. Still walking her dog. Found out that her dog used to take a nap at another neighbor's porch with their cat when the dog's first educational administration teacher was alive. Now friends with that neighbor. Someone can talk things out with. Answer to prayers. Stressors with taking care of who has failing health and can be really difficult to deal with. Denies symptoms of excessive thirst or increased frequency of urination, chest pain or dyspnea , numbness, tingling or pain in extremities, new or unusual visual symptoms and low sugar/hypoglycemic reactions PAST MEDICAL HISTORY Diagnosis Date - Acute gastritis without mention of hemorrhage - Asthma - Coronary atherosclerosis of unspecified type of vessel, [place] or graft - Depression - Diaphragmatic hernia without mention of obstruction or gangrene - Esophageal reflux 07/29/2006 - Hypersomnia with sleep apnea, unspecified - Irritable bowel syndrome - Localized osteoarthrosis not specified whether primary or secondary, unspecified site - Myalgia and myositis, unspecified - Obesity, unspecified - Obstructive sleep apnea - Other and unspecified hyperlipidemia - Other specified gastritis - Retinal hemorrhage 02/27/2007 Dr. Yu - Type II or unspecified type diabetes mellitus without mention of complication, uncontrolled - Unspecified essential hypertension Current Outpatient Prescriptions: canagliflozin (INVOKANA) 300 mg tablet Take 1 tablet by mouth daily before breakfast. etodolac (LODINE) 300 mg capsule Take 1 capsule by mouth once daily as needed. metoprolol succinate ER (TOPROL XL) 100 mg Tb24 TAKE 1 TABLET ONE TIME DAILY losartan (COZAAR) 50 mg tablet TAKE 1 TABLET ONE TIME DAILY atorvastatin (LIPITOR) 10 mg tablet TAKE 1 TABLET BY MOUTH ONCE DAILY. insulin aspart (NOVOLOG FLEXPEN) 100 unit/mL inpn Take subcutaneous injection 14 units with breakfast, 17 units with lunch and 17 units with supper and as directed. insulin glargine (LANTUS) 100 unit/mL injection Inject 30 Units subcutaneously once daily. Titrate as directed up to 50 units tehaswblr-[id number]-algal oil (METANX, ALGAL OIL,) 3 mg-35 mg-2 mg -90.314 mg cap Take 1 capsule by mouth three times daily. Lancets lancets Test blood sugar(s) 3 times daily. Dx: Type 2 DM - Controlled E11.65 Insulin: Yes blood sugar diagnostic (ACCU-CHEK LENORE PLUS TEST STRP) test strip Test blood sugar(s) 3 times daily. Dx: Type 2 DM - Uncontrolled E11.65 Insulin: Yes Blood-Glucose Meter (ACCU-CHEK LENORE PLUS METER) [facility] Dispense 1 Meter Kit. Dx: E11.65 BD INSULIN SYRINGE UF II 1/2 mL 31 x 5/16 syrg USE DIRECTED WITH LANTUS loratadine (CLARITIN) 10 mg tablet Take 1 tablet by mouth once daily as needed. FOR ALLERGY SYMPTOMS nitroglycerin sublingual (NITROSTAT) 0.4 mg SL tablet Dissolve 1 tablet under the tongue as needed. If no pain relief call 911. Dr. Hoyos. vitamin b complex tab Take 1 tablet by mouth once daily. Cholecalciferol, Vitamin D3, 2,000 unit Tab Take 1 capsule by mouth one time daily ubidecarenone Q-10 50 mg capsule Take 1 capsule by mouth once daily. albuterol HFA (PROAIR HFA) 90 mcg/actuation inhaler Inhale 2 Puffs as instructed every 4 hours as needed. NORVASC 5 MG ORAL TAB Take one(1) tablet daily. No current facility-administered medications for this visit. OBJECTIVE: BP 118/52 (BP Site: Left Arm, BP Position: Sitting, BP Cuff Size: Regular Adult) Pulse 70 Resp 16 Wt 72.6 kg (160 lb) SpO2 98% BMI 30.23 kg/m? Patient is alert, oriented times 3, no apparent distress, affect is bright, reactive. Last 5 Encounter BP Readings: Date: BP: 08/22/2017 118/52 04/15/2017 102/62 09/25/2016 112/64 05/25/2016 112/62 12/27/2015 118/60 Last 5 Encounter Wt Readings: Date: Wt: 08/22/2017 72.6 kg (160 lb) 04/15/2017 72.6 kg (160 lb) 09/25/2016 73.5 kg (162 lb) 05/25/2016 73 kg (161 lb) 12/27/2015 74.4 kg (164 lb) Heart: Regular rate, rhythm, no murmurs, gallops, rubs. Lungs: Clear to auscultation, bilaterally, breathing non labored. Ext: No cyanosis, clubbing, or edema. DJD changes in hands with some fingers with ulnar deviation from the PIP and/or DIP joints but not really severe; no active synovitis. Component Latest Ref Rng AND Units 04/12/2017 08/17/2017 Glucose 74 - 99 mg/dL 120 (H) 143 (H) BUN 7 - 21 mg/dL 14 12 Creatinine 0.58 - 0.96 mg/dL 0.73 0.70 Sodium 136 - 144 mmol/L 142 141 Potassium 3.7 - 5.1 mmol/L 4.5 4.8 Chloride 97 - 105 mmol/L 103 103 CO2 22 - 30 mmol/L 24 24 Anion Gap 9 - 18 mmol/L 15 14 Calcium 8.5 - 10.2 mg/dL 9.0 9.4 eGFR- >60 >60 eGFR-All Other Races . >60 >60 Triglyceride <150 mg/dL 98 86 Cholesterol, Total <200 mg/dL 146 151 HDL Cholesterol >39 mg/dL 52 (L) 57 VLDL Cholesterol <30 mg/dL 20 17 LDL Cholesterol <100 mg/dL 74 77 Fasting Time hrs 12 12 TC:HDL Ratio <5.10 2.81 2.65 LDL:HDL Ratio <2.54 1.42 1.35 Non HDL Cholesterol <130 mg/dL 94 94 Creatinine, Ur Random (UCRR) 20 - 300 mg/dL 74.3 Albumin, Urine Random 0.0 - 23.0 mg/L <12.0 Albumin/Creat Ratio 0 - 30 mg/g Not calculated Hemoglobin A1C 4.3 - 5.6 % 8.4 (H) 8.8 (H) Estimated Average Glucose mg/dL 194 206 ASSESSMENT AND PLAN: Encounter Diagnosis ICD-10-CM 1. Type 2 diabetes mellitus without complication, with long- term current use of insulin ([facility]) E11.9 canagliflozin (INVOKANA) 300 mg tablet Z79.4 HGB A1C COMP METABOLIC PANEL 2. 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 Essential hypertension I10 COMP METABOLIC PANEL CBC 4. Mixed hyperlipidemia E78.2 5. Class 1 obesity due to excess calories with serious comorbidity and body mass index (BMI) of 30.0 to 30.9 in adult E66.09 Z68.30 6. Reactive depression F32.9 Additional Medical Conditions Last edited 08/22/17 22:12 EDT by Lori Can MD Sugar control not as good with HgA1C up to 8.8. Weight stayed down at 160 this winter. Continue present management. Doing fine with current meds without adverse effects. Discussed arthritis--will try OTC topicals to see if those help. Not severe enough that wants to see Rheumatology to rule in inflammatory arthritis and take aggressive treatment even if indicated because of potential adverse effects. Lipids with excellent control. BP controlled. Continue present management. Depression discussed. Can get really down at times, but has good support. Florence helping her through the tough times. Walking her dog helps. Emotional support given. Continue present management. Above issues addressed with patient. Patient involved in shared decision making for management of her medical issues. History and medications reviewed. Epic updated as needed Refills taken care of and meds adjusted as indicated after reviewed history, exam and labs. Health Maintenance reviewed. Updated record and/or ordered tests as recorded. Encouraged on efforts at healthy diet and regular exercise and adequate sleep. The majority of the visit was spent counseling and/or coordinating care for the patient. Vuqj-wp-uqob time was at least 25 minutes. Lori Can MD Referring Provider: LORI CAN [[id number]] Allergies As of Date: 08/22/2017 Noted Allergy Reaction LISINOPRIL 06/06/2011 3 - Cough Comments: Resolved after stopped medication SEASONAL ALLERGIES 06/26/2013 14 - Other: See Comments Comments: wheezing Date Reviewed: 08/22/2017 Reviewed by: Stephenie Guillaume Ma - Fully Assessed Reason for Visit: 4 Month F/u [Other] Primary Visit Diagnosis:Type 2 diabetes mellitus without complication, with long-term current use of insulin (HCC) [E11.9, Z79.4] Other Visit Diagnoses:Arthritis of hand [M19.049] Essential hypertension [I10] Mixed hyperlipidemia [E78.2] Class 1 obesity due to excess calories with serious comorbidity and body mass index (BMI) of 30.0 to 30.9 in adult [E66.09, Z68.30] 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] Order(s):canagliflozin (INVOKANA) 300 mg tabletTake 1 tablet by mouth daily before breakfast.Disp: 90 tabletRfl: 3 etodolac (LODINE) 300 mg capsuleTake 1 capsule by mouth once daily as needed.Disp: 30 capsuleRfl: 5 metoprolol succinate ER (TOPROL XL) 100 mg Dm78Vydc 1 tablet by mouth once daily.Disp: 90 tabletRfl: 3 losartan (COZAAR) 50 mg tabletTake 1 tablet by mouth once daily.Disp: 90 tabletRfl: 3 atorvastatin (LIPITOR) 10 mg tabletTake 1 tablet by mouth once daily.Disp: 90 tabletRfl: 3 insulin aspart U-100 (NOVOLOG FLEXPEN U-100 INSULIN) 100 unit/mL inpnTake subcutaneous injection 14 units with breakfast, 17 units with lunch and 17 units with supper and as directed.Disp: 15 PenRfl: 3 insulin glargine (LANTUS U-100 INSULIN) 100 unit/mL injectionInject 30 Units subcutaneously once daily. Titrate as directed up to 50 unitsDisp: 3 VialRfl: 3 omeprazole (PRILOSEC) 20 mg capsuleTake 1 capsule by mouth daily before breakfast. 1/2 hr before meal.Disp: Rfl: HGB A1C [RMLSC7S] Order #: [id number] FUTURE COMP METABOLIC PANEL [SQCMP] Order #: [id number] FUTURE CBC [SQCBC] Order #: [id number] FUTURE Prescriptions as of 08/22/2017 Sig: CANAGLIFLOZIN 300 MG TABLET Take 1 tablet by mouth daily * ETODOLAC 300 MG CAPSULE Take 1 capsule by mouth once * METOPROLOL SUCCINATE ER 100 M* Take 1 tablet by mouth once d* LOSARTAN 50 MG TABLET Take 1 tablet by mouth once d* ATORVASTATIN 10 MG TABLET Take 1 tablet by mouth once d* INSULIN ASPART U-100 100 UNI* Take subcutaneous injection 1* INSULIN GLARGINE (U-100) 100 * Inject 30 Units subcutaneousl* LEVOMEFOLATE CA 3 MG-B6 35 MG* Take 1 capsule by mouth three* LANCETS Test blood sugar(s) 3 times d* BLOOD SUGAR DIAGNOSTIC STRIPS Test blood sugar(s) 3 times d* BLOOD-GLUCOSE METER Dispense 1 Meter Kit. Dx: E1* BD INSULIN SYRINGE ULT-FINE I* USE DIRECTED WITH LANTUS LORATADINE 10 MG TABLET Take 1 tablet by mouth once d* NITROGLYCERIN 0.4 MG SUBLINGU* Dissolve 1 tablet under the t* VITAMIN B COMPLEX TABLET Take 1 tablet by mouth once d* CHOLECALCIFEROL (VITAMIN D3) * Take 1 capsule by mouth one t* COENZYME Q10 50 MG CAPSULE Take 1 capsule by mouth once * ALBUTEROL SULFATE HFA 90 MCG/* Inhale 2 Puffs as instructed * * NORVASC 5 MG TABLET Take one(1) tablet daily. OMEPRAZOLE 20 MG CAPSULE,ELÍAS* Take 1 capsule by mouth daily* Problem List As Of Date 08/22/2017 Noted Resolved MYALGIA AND MYOSITIS NOS [[id number]] Mixed hyperlipidemia [E78.2] Essential hypertension [I10] OBESITY NOS [E66.9] CERVICAL DISC DEGEN [M50.30] INVALID FOR* Diabetes mellitus (HCC) [E11.9] INVALID FOR* Cervical radiculopathy [[id number]] INVALID FOR* ESOPHAGEAL REFLUX [K21.9] INVALID FOR* RETINAL HEMORRHAGE [H35.60] INVALID FOR* More... BONE AND CARTILAGE DIS NOS [M89.9, M94.9] INVALID FOR* Acute gastritis without mention of hemorrhage [*INVALID FOR* Diaphragmatic hernia without mention of obstruc*INVALID FOR* Depression [F32.9] INVALID FOR* Sleep apnea [G47.30] INVALID FOR* More... Choledocholithiasis [K80.50] INVALID FOR* Chronic cholecystitis [K81.1] INVALID FOR* Gastroparesis [K31.84] INVALID FOR* Prescriptions ordered this encounter Disp Refills Start End CANAGLIFLOZIN 300 MG TABLET 90 t* 3 08/22/2017 Route: ORAL Sig: Take 1 tablet by mouth daily before breakfast. ETODOLAC 300 MG CAPSULE 30 c* 5 08/22/2017 Route: ORAL Sig: Take 1 capsule by mouth once daily as needed. METOPROLOL SUCCINATE ER 100 MG TABLE* 90 t* 08/22/2017 Route: ORAL Sig: Take 1 tablet by mouth once daily. LOSARTAN 50 MG TABLET 90 t* 08/22/2017 Route: ORAL Sig: Take 1 tablet by mouth once daily. ATORVASTATIN 10 MG TABLET 90 t* 3 08/22/2017 Route: ORAL Sig: Take 1 tablet by mouth once daily. INSULIN ASPART U-100 100 UNIT/ML GRIGGS* 15 P* 3 08/22/2017 Sig: Take subcutaneous injection 14 units with breakfast, 17 units with lunch and 17 units with supper and as directed. INSULIN GLARGINE (U-100) 100 UNIT/ML* 3 Vi* 3 08/22/2017 Route: SUBCUTANEOUS Sig: Inject 30 Units subcutaneously once daily. Titrate as directed up to 50 units OMEPRAZOLE 20 MG CAPSULE,DELAYED REL* 08/22/2017 Class: OTC Route: ORAL Sig: Take 1 capsule by mouth daily before breakfast. 1/2 hr before meal. Medications Discontinued During This Encounter canagliflozin (INVOKANA) 300 mg tabl* 90 t* 3 09/25/2016 08/22/2017 Route: ORAL Sig: Take 1 tablet by mouth daily before breakfast. Disc: Reason for discontinue is not on file. etodolac (LODINE) 300 mg capsule 30 c* 1 09/25/2016 08/22/2017 Route: ORAL Sig: Take 1 capsule by mouth once daily as needed. Disc: Reason for discontinue is not on file. metoprolol succinate ER (TOPROL XL) * 90 t* 3 08/29/2016 08/22/2017 Sig: TAKE 1 TABLET ONE TIME DAILY Disc: Reason for discontinue is not on file. losartan (COZAAR) 50 mg tablet 90 t* 3 08/29/2016 08/22/2017 Sig: TAKE 1 TABLET ONE TIME DAILY Disc: Reason for discontinue is not on file. atorvastatin (LIPITOR) 10 mg tablet 90 t* 3 06/13/2016 08/22/2017 Sig: TAKE 1 TABLET BY MOUTH ONCE DAILY. Disc: Reason for discontinue is not on file. insulin aspart (NOVOLOG FLEXPEN) 100* 15 P* 3 01/27/2016 08/22/2017 Cmt: In place of Humalog Sig: Take subcutaneous injection 14 units with breakfast, 17 units with lunch and 17 units with supper and as directed. Disc: Reason for discontinue is not on file. insulin glargine (LANTUS) 100 unit/m* 3 Vi* 3 12/27/2015 08/22/2017 Route: SUBCUTANEOUS Sig: Inject 30 Units subcutaneously once daily. Titrate as directed up to 50 units Disc: Reason for discontinue is not on file. Disposition: Return in about 4 months (around 12/23/2017) for 4 months follow up. Follow-up and Disposition History Recorded Encounter Status:Closed by LORI CAN MD on 08/22/17 ALBUMIN/CREAT RATIO Collected: 08/17/2017 Status: F Source: [place] 8:38 AM [facility] REPOSITORY TYPE CODE TESTS RESULT OUT OF REFERENCE UNITS RANGE LAB UCRR 20-300 mg/dL 74.3 Creatinine,Ur ine,Ran LAB UALBR 0.0-23.0 mg/L <12.0 Albumin Urine Random LAB UALBCR 0-30 mg/g Not Albumin/Creat calculated Ratio Performed By: #### UACR #### [facility] [address] [place] [address] BASIC METABOLIC PANL Collected: 08/17/2017 Status: F Source: [place] 8:34 AM [facility] REPOSITORY TYPE CODE TESTS RESULT OUT OF REFERENCE UNITS RANGE LAB GLU 74-99 mg/dL High Glucose 143 Result Comment: The [place] Diabetes Association (ADA) provides guidance for cutoff values for fasting glucose and random glucose. The ADA defines fasting as no caloric intake for at least 8 hours. Fas ting plasma glucose results between 100 to 125 mg/dL indicate increased risk for diabetes (prediabetes). Fasting plasma glucose results greater than or equal to 126 mg/dL meet the criteria for diagnosis of diabetes. In the absence of unequivocal hyperglycemia, results should be confirmed by repeat testing. In a patient with classic symptoms of hyperglycemia or hyperglycemic crisis, random plasma glucose results greater than or equal to 200 mg/dL meet the criteria for diagnosis of diabetes. Reference: Standards of Medical Care in Diabetes 2016, [place] [employer] Association. Diabetes Care. 2016.39(Suppl 1). LAB BUN 7-21 mg/dL BUN 12 LAB CRET 0.58-0.96 mg/dL Creatinine 0.70 LAB NA 136-144 mmol/L Sodium 141 LAB K 3.7-5.1 mmol/L Potassium 4.8 LAB CL 97-105 mmol/L Chloride 103 LAB CO2 22-30 mmol/L CO2 24 LAB AGAP 9-18 mmol/L Anion Gap 14 LAB CA 8.5-10.2 mg/dL Calcium, Total 9.4 LAB GFRAA eGFR- Amer. >60 LAB GFRNAA . eGFR-All Other Races >60 Result Comment: eGFR (Estimated GFR) Units of measure: mL/min/1.73 meters squared eGFR is derived from the reexpressed MDRD Study equation using the following parameters: serum creatinine, age, gender and race. The creatinine assay has been calibrated to be traceable to IDMS. An eGFR <60 mL/min/1.73m2 for >3 months is consistent with chronic kidney disease. Refer to KDOQI guidelines for clinical interpretation. In patients with unstable renal function, e.g. those with acute kidney injury, the eGFR may not accurately reflect actual GFR. Performed By: #### BMP, LIPB, HBA1C #### [facility] [address] [place], [place] [address] LIPID PANEL, BASIC Collected: 08/17/2017 Status: F Source: [place] 8:34 AM [facility] REPOSITORY TYPE CODE TESTS RESULT OUT OF REFERENCE UNITS RANGE LAB CHOL <200 mg/dL Cholesterol 151 Result Comment: <200 mg/dL, Desirable 200-239 mg/dL, Borderline high >239 mg/dL, High LAB TRIGLY <150 mg/dL Triglyceride 86 Result Comment: <150 mg/dL, Normal 150-199 mg/dL, Borderline high 200-499 mg/dL, High >499 mg/dL, Very high LAB HDL >39 mg/dL HDL-Cholesterol 57 Result Comment: 40-59 mg/dL, Acceptable >59 mg/dL, High: Negative risk factor for coronary heart disease <40 mg/dL, Low: Positive risk factor for coronary heart disease LAB LDL <100 mg/dL LDL-Cholesterol 77 Result Comment: <100 mg/dL, Optimal 100-129 mg/dL, Near optimal/above optimal 130-159 mg/dL, Borderline high 160-189 mg/dL, High >189 mg/dL, Very high Secondary prevention optimal LDL Cholesterol levels are recommended to be < 70 mg/dL LAB NONHDL <130 mg/dL Non HDL Cholesterol 94 Result Comment: <130 mg/dL, Optimal 130-159 mg/dL, Near optimal/above optimal 160-189 mg/dL, Borderline high 190-219 mg/dL, High >219 mg/dL, Very high Secondary prevention optimal non HDL Cholesterol levels are recommended to be < 100 mg/dL LAB FT hrs Fasting Time 12 LAB VLDL <30 mg/dL VLDL Cholesterol 17 LAB TCHDL <5.10 TC:HDL Ratio 2.65 LAB LDLHDL <2.54 LDL:HDL Ratio 1.35 Result Comment: Reference: 1. National Cholesterol Education Program ATP III Guideline At-A-Glance Quick Desk Reference: National Heart, Lung, and Blood [place]. National Institutes of Health. 2001: NIH Publication No. 01-3305. 2. An International Atherosclerosis Society position paper: global recommendations for the management of dyslipidemia: executive summary, Atherosclerosis. 2014: 232(2):410-413. Performed By: #### BMP, LIPB, HBA1C #### [facility] [address] [place], [place] [address] HEMOGLOBIN A1C Collected: 08/17/2017 Status: F Source: [place] 8:34 AM [facility] REPOSITORY TYPE CODE TESTS RESULT OUT OF REFERENCE UNITS RANGE LAB HGBA1C 4.3-5.6 % High Hemoglobin A1c 8.8 LAB HBA0 mg/dL Est. Average Glucose 206 Result Comment: eAG: (Estimated average glucose) is a calculated value from HgbA1c and is veterans service representative of the average blood glucose level in the last 2-3 month period. Performed By: #### BMP, LIPB, HBA1C #### [facility] [address] [place], [place] [address] CNPTOUTREACH Observed: 08/06/2017 Status: COMPLETED Source: [place] 12:00 AM [facility] REPOSITORY Patient Outreach ([facility]) MAGNOLIA FISHER ([id number]) 1940 F BLD Date Time Provider Department 08/06/17 LORI CAN [facility] During your visit today, we recorded the following information about you: Allergies As of Date: 08/06/2017 Noted Allergy Reaction LISINOPRIL 06/06/2011 3 - Cough Comments: Resolved after stopped medication SEASONAL ALLERGIES 06/26/2013 14 - Other: See Comments Comments: wheezing Date Reviewed: 04/15/2017 Reviewed by: Gabi Esposito Security Operations Specialist - Fully Assessed Visit Diagnosis:Medication management [Z79.899] Order(s):ALBUMIN/CREAT RATIO RND UR [SQUACR] Order #: [id number] FUTURE Prescriptions as of 08/06/2017 Sig: X CANAGLIFLOZIN 300 MG TABLET Take 1 tablet by mouth daily * X ETODOLAC 300 MG CAPSULE Take 1 capsule by mouth once * X METOPROLOL SUCCINATE ER 100 M* TAKE 1 TABLET ONE TIME DAILY X LOSARTAN 50 MG TABLET TAKE 1 TABLET ONE TIME DAILY X ATORVASTATIN 10 MG TABLET TAKE 1 TABLET BY MOUTH ONCE D* X INSULIN ASPART U-100 100 UNI* Take subcutaneous injection 1* X INSULIN GLARGINE (U-100) 100 * Inject 30 Units subcutaneousl* X LEVOMEFOLATE CA 3 MG-B6 35 MG* Take 1 capsule by mouth three* Patient not taking: Reported on 12/24/2017 LANCETS Test blood sugar(s) 3 times d* BLOOD SUGAR DIAGNOSTIC STRIPS Test blood sugar(s) 3 times d* BLOOD-GLUCOSE METER Dispense 1 Meter Kit. Dx: E1* BD INSULIN SYRINGE ULT-FINE I* USE DIRECTED WITH LANTUS LORATADINE 10 MG TABLET Take 1 tablet by mouth once d* NITROGLYCERIN 0.4 MG SUBLINGU* Dissolve 1 tablet under the t* VITAMIN B COMPLEX TABLET Take 1 tablet by mouth once d* CHOLECALCIFEROL (VITAMIN D3) * Take 1 capsule by mouth one t* X COENZYME Q10 50 MG CAPSULE Take 1 capsule by mouth once * ALBUTEROL SULFATE HFA 90 MCG/* Inhale 2 Puffs as instructed * X * NORVASC 5 MG TABLET Take one(1) tablet daily. Problem List As Of Date 08/06/2017 Noted Resolved MYALGIA AND MYOSITIS NOS [[id number]] Mixed hyperlipidemia [E78.2] Essential hypertension [I10] OBESITY NOS [E66.9] CERVICAL DISC DEGEN [M50.30] INVALID FOR* Diabetes mellitus (HCC) [E11.9] INVALID FOR* Cervical radiculopathy [TFU5048] INVALID FOR* ESOPHAGEAL REFLUX [K21.9] INVALID FOR* RETINAL HEMORRHAGE [H35.60] INVALID FOR* More... BONE AND CARTILAGE DIS NOS [M89.9, M94.9] INVALID FOR* Acute gastritis without mention of hemorrhage [*INVALID FOR* Diaphragmatic hernia without mention of obstruc*INVALID FOR* Depression [F32.9] INVALID FOR* Sleep apnea [G47.30] INVALID FOR* More... Choledocholithiasis [K80.50] INVALID FOR* Chronic cholecystitis [K81.1] INVALID FOR* Gastroparesis [K31.84] INVALID FOR* Encounter Status:Closed by OMAR MCKEON on 01/10/18 CNCO Observed: 06/28/2017 Status: COMPLETED Source: [place] 8:38 AM [facility] REPOSITORY HNO ID: [id number] Author: Mammography Coordinator Service: (none) Author Type: Physician Type: Letter Filed: 07/01/2017 11:33 PM Note Text: June 28, 2017 PID: [id number] Magnolia Fisher [address] [place] [address] Dear Chelsea Gargon, We are pleased to inform you that the results of your recent breast imaging exam on 06/28/2017 are normal. Early detection of cancer is very important. We also understand recommendations regarding breast cancer screening are controversial. Please discuss with your primary care provider which strategy is best for you and whether a mammogram is right for you. Your imaging studies and report will be kept on file at [facility] as part of your permanent medical record and are available for your continuing care. Thank you for allowing us to help in meeting your health care needs. Sincerely, Dr. Salinas Interpreting Radiologist [facility] (Normal over 40) [facility] SCREENING Observed: 06/28/2017 Status: F Source: [place] 8:32 AM [facility] REPOSITORY * * *Final Report* * * DATE OF EXAM: Jun 28 2017 8:32AM JUAN [id number] - [facility] SCREENING / PROCEDURE REASON: Encounter for screening mammogram for malignant neoplasm of breast * * * * Physician Interpretation * * * * RESULT: #[id number] - [facility] SCREENING BILATERAL DIGITAL SCREENING MAMMOGRAM WITH CAD: 06/28/2017 HISTORY: Screening Mammogram - patient reports NO breast symptoms /priors available for comparison. RESULT: TECHNIQUE: The study was acquired using full field digital technology and interpreted from soft copy. Current study was also evaluated with a Computer Aided Detection (CAD). Comparison is made to exams dated: 05/28/2016 mammogram, 05/04/2014 mammogram, 04/17/2011 mammogram, and 03/30/2013 mammogram - [facility]. The tissue of both breasts is predominantly fatty. No significant masses, calcifications, or other findings are seen in either breast. There has been no significant interval change. IMPRESSION: NEGATIVE There is no mammographic evidence of malignancy.A 1 year screening mammogram is recommended. Xu Salinas M.D. tr/cl:06/28/2017 08:38:32 Walking Dragline Operator: Brandi CUEVA)(Mariusz), [facility] letter sent: Normal over 40 Mammogram BI-RADS: 1 Negative Manager Data Warehousing: Cl Transcribe Date/Time: Jun 28 2017 8:09A Dictated by: XU SALINAS MD This examination was interpreted and the report reviewed and electronically signed by: XU SALINAS MD on Jun 28 2017 8:38AM EST [id number] Observed: 06/28/2017 Status: COMPLETED Source: [place] 8:08 AM [facility] REPOSITORY O ID: [id number] Author: Angie Rios Service: (none) Author Type: (none) Type: Progress Notes Filed: 06/28/2017 8:08 AM Note Text: Radiology Service Progress Note PATIENT NAME: Magnolia Fisher DATE OF SERVICE: June 28, 2017 TIME: 8:08 AM PATIENT IDENTITY VERIFICATION COMPLETED USING TWO (2) METHODS: Patient confirmed name verbally and Date of . PATIENT GENDER DATA: Female. status: : No status: NO. PATIENT RELEVANT IMPLANT DATA REVIEWED: Not Applicable RADIOLOGY DEPARTMENT: [facility] IV DATA: Not applicable SIGNED BY: Angie Rios June 28, 2017 8:08 AM LIVER PROFILE Collected: 05/22/2017 Status: F Source: [place] 11:06 AM [facility] REPOSITORY TYPE CODE TESTS RESULT OUT OF RANGE REFERENCE UNITS LAB L501.1500 6.4-8.2 g/dL Normal T PROT 7.4 LAB L501.1800 3.2-5.0 g/dL Normal ALB 3.9 LAB L501.1950 2.2-4.2 g/dL Normal GLOB 3.5 LAB L501.4100 15-37 U/L Normal AST 16 LAB L501.4305 45-117 U/L Normal ALK P 101 LAB L501.4405 13-56 U/L Normal ALT 23 Result Comment: Please note revised ALT reference range effective 2017. LAB L501.4600 0.20-1.00 mg/dL Normal T BILI 1.00 LAB L501.4700 0.00-0.30 mg/dL Normal D BILI 0.17 Performed By: #### L500.3400 #### [facility] [address] [place], [address] CARDIOLOGY VISIT Observed: 05/03/2017 Status: F Source: [place] REPORT 3:30 PM [facility] REPOSITORY [facility] [address] [place] [address] OFFICE VISIT Date of Service: 03/19/17 MR#: [id number] Acct: [id number] Name: MAGNOLIA FISHER Rep #: [id number] : 1940 Provider: Leslie Tafoya Age/Sex: 76/F [place] [facility] [place] Status: Signed HPI 6 M FU: Details: MAGNOLIA FISHER, is a 76 F who presents to the office today for cardiovascular follow-up. She is a history of coronary artery disease with bypass surgery in 1998. She had an MACARIO to the LAD, left radial to the diagonal. Heart catheterization in 2007 demonstrated left main normal, LAD totally occluded, ramus intermedius 30-40% stenosis, circumflex with no significant disease, RCA small with no significant disease, radial artery to the diagonal patent, MACARIO to LAD patent. Stress test in 2012 was negative for ischemia at a moderate workload. She does occasionally have palpitations. These do not last long. This is not new. Her exercise tolerance is stable, she walks her dog every day. She is questioning having a carotid u/s,her eye doctor is recommending this d/t pain in her left side of her face. She does not have any chest pain/heaviness. She does not have any lightheadedness or dizziness. She does not have any lower extremity edema. Intake Vital Signs03/19/17 Height 5 ft 1.5 in 03/19/17 Weight: 161 lb 03/19/17 Body Mass Index (BMI) 29.9 03/19/17 Blood Pressure 118/58 03/19/17 Blood Pressure Location Rt brachial Intake Visit Reasons: 6 M FU Director Ehs Required: No Accompanied by: Is patient in pain?: No Allergies lisinopril Adverse Reaction (Verified 04/16/17 16:58) COUGH shellfish Allergy (Uncoded 04/16/17 16:58) lip swelling, diarrhea Medications Losartan Potassium [Cozaar] 50 mg PO DAILY 02/04/13 [History Confirmed 04/16/17] Aspirin [Aspirin, Baby] 81 mg PO DAILY 03/27/13 [History Confirmed 04/16/17] Cholecalciferol (Vitamin D3) [Vitamin D] 1,000 units PO DAILY 03/27/13 [History Confirmed 04/16/17] Insulin Glargine [Lantus SoloStar Pen] 30 units SC QHS 03/27/13 [History Confirmed 04/16/17] Insulin Lispro [Humalog] 18 unit SQ BREAKFAST 03/27/13 [History Confirmed 04/16/17] Insulin Lispro [Humalog] 20 unit SQ DINNER 03/27/13 [History Confirmed 04/16/17] Insulin Lispro [Humalog] 22 unit SQ LUNCH 03/27/13 [History Confirmed 04/16/17] Metoprolol(XL)Succ [Toprol Xl] 100 mg PO DAILY 03/27/13 [History Confirmed 04/16/17] Multivitamins,Therapeutic [Multivitamin] 1 tab PO DAILY 03/27/13 [History Confirmed 04/16/17] Omeprazole [Prilosec] 40 mg PO DAILY 03/27/13 [History Confirmed 04/16/17] atorvastatin 10 mg tablet 10 mg PO QDAY 03/19/17 [History Confirmed 04/16/17] Loratadine 10 mg PO DAILY PRN PRN 04/16/17 [History Confirmed 04/16/17] Nitroglycerin [Nitrostat] 0.4 mg SL TID PRN PRN 04/16/17 [History Confirmed 04/16/17] Ubidecarenone [Co Q-10] 50 mg PO DAILY 04/16/17 [History Confirmed 04/16/17] Ursodiol 300 mg PO DAILY 04/16/17 [History Confirmed 04/16/17] Ejection fraction %: 55 to 59 PFSH Medical History CAD (coronary artery disease) (Chronic) Benign essential hypertension (Chronic) Diabetes mellitus, type 2 (Chronic) Hyperlipemia (Chronic) Surgical History Hx of CABG (Chronic 1998) Family History Father Aortic aneurysm Hypertension CAD (coronary artery disease) Brother Hypertension Diabetes COPD (chronic obstructive pulmonary disease) Sister Hypertension Aortic aneurysm Daughter Hypertension Cancer Mother COPD (chronic obstructive pulmonary disease) CHF (congestive heart failure) Social History Smoking Status: Former smoker alcohol intake: never substance use type: does not use caffeine: Yes Type: coffee, tea what type of physical activity do you participate in: walking frequency: daily duration: 15-30 minutes/day seatbelt use: always do you feel safe at home: Yes ROS Const Const: Negative for weakness, fatigue, fever(s) or headache(s) Eyes Eyes: Negative for blind spots, loss of peripheral vision or transient loss of vision ENT ENT: Negative for headache(s), Negative for dizziness, Negative for tinnitus, Negative for Nosebleed/epistaxis Cardio Chest Pain: No Palpitations: Positive for No Edema: None Muscle aches with walking: None Resp Respiratory: Negative for SOB with activity, SOB at rest or SOB orthopnea\SOB lying down GI GI: Negative nausea, vomiting, heartburn or vomiting blood/hematemesis : Negative for hematuria Musc Musc: Negative for muscle aches/ myalgia Neuro Neuro: Negative for weakness, Negative for headache(s), Negative for dizziness, Negative for near syncope, Negative for syncope, Negative for lightheadedness Martin Hematologic/Lymphatic: Negative for easy bleeding Endo Endo: Negative for fatigue Cardiology Exam Const Appearance: cooperative, no acute distress and well developed Orientation: alert, awake and oriented x3 Head Head: normocephalic; negative atraumatic Eyes General: appearance normal, both eyes and all related structures Conjunctivae: conjunctivae normal Pupils: PERRL Neck Neck: normal visual inspection, no lymphadenopathy and no JVD Carotids: bruit Left Chest Chest inspection: normal inspection of the chest and symmetric chest movement Auscultation: Bilateral: Clear to Auscultation Cardio Palpation: normal PMI Rate: regular rate Rhythm: regular rhythm Heart sounds: S1 normal and S2 normal; negative rub, gallop or murmur GI GI: normal to inspection, soft, no hepatosplenomegaly and bowel sounds present; negative tender Neuro General: alert, awake, oriented x3, CN's II-XI intact bilaterally and moves all extremities Extremities Pulses: Normal: Right Posterior Tibial Pulse, Left Posterior Tibial Pulse, Right Radial Pulse, Absent: Left Radial Pulse Lower Extremity Edema: None: Bilateral Psych Psychological: normal affect Assessment AND Plan 1. Coronary artery disease involving [place] coronary artery of [place] heart without angina pectoris I25.10; I25.10; I25.10 Plan - CARL Rios Stable, from a cardiac standpoint patient does not have any symptoms of angina. We recommend that they continue with current aggressive medical management and risk factor modification. 2. Pure hypercholesterolemia E78.00; E78.00; E78.00; E78.0 Plan - CARL Rios Recent lipid profile demonstrates total cholesterol 149, HDL 50, LDL 60. Will continue with current medical management. 3. Benign essential hypertension I10 Plan - CARL Rios Blood pressure is well controlled on current medications, we do not recommend any changes at this time. 4. Left carotid bruit R09.89 Plan - CARL Rios With patient's newly found left carotid bruit we will obtain a carotid ultrasound to evaluate. Orders Orders: Plan Detail Additional Comments - CARL Rios The above patient was discussed with Dr. Hoyos, he agrees with plan of care. Thank you for allowing us to participate in patient's plan of care, if you have any questions please do not hesitate to call. This note was generated using a voice recognition system and there may be incorrect words, spelling or punctuation errors that were not noted when reviewing the office note prior to saving. Follow Up 6 Months (INFORMATION ENGINEER) Coding Level of Care Code Off vis,est,level 4 Diagnoses Coronary artery disease involving [place] coronary artery of [place] heart without angina pectoris I25.10; I25.10; I25.10 Associated angina: without angina Coronary Disease-Associated Artery/Lesion type: [place] artery [place] vs. transplanted heart: [place] heart Pure hypercholesterolemia E78.00; E78.00; E78.00; E78.0 Hyperlipidemia type: pure hypercholesterolemia Benign essential hypertension I10 Left carotid bruit R09.89 04/29/17 1641 <Electronically signed by Leslie HENRY> Date Leslie HENRY 05/03/17 1530<Electronically signed by Guicho Hoyos MD> Cosigner Signature: Date (if applicable) Guicho Hoyos MD CC: ALLERGIES ALLERGIES DATE TYPE / CODE NAME / CODE REACTION SEVERITY SOURCE 03/20/2018 Drug lisinopril/F006 cough Unknown Ange Allergy/[id number](S 225669(RXNORM) [facility]) Hospital Repository 04/16/2017 Miscellaneous shellfish lip swelling, Unknown Ange Allergy/[id number](S diarrhea [facility]) Hospital Repository 06/26/2013 Environ/[id number](S SEASONAL OTHER: SEE C [facility]) ALLERGIES Clinic Main [place] Repository 06/06/2011 DRUG LISINOPRIL COUGH [place] INGREDI/[id number](S Clinic Main [place]) [place] Repository ENCOUNTERS ENCOUNTERS ADMIT/DISCHARGE ACCOUNT ADMITTING ENCOUNTER LOCATION SOURCE NUMBER CLASS 04/16/2018 [id number] Ambulatory BMSBuilding:Dominqiue Cassidy MS.CF.[facility] Repository 04/16/2018 [id number] Ambulatory [facility] Hospital ing:[facility] Repository 04/08/2018/04/08/19 [id number] Ambulatory [address] Repository 04/03/2018/04/03/19 [id number] Ambulatory [address] Repository 03/20/2018/03/20/20 [id number] Ambulatory BMSBuilding:Dominique Cassidy 18 MS.[facility] Repository 03/03/2018/03/03/20 [id number] Ambulatory [address] Repository 03/03/2018/03/03/20 [id number] Ambulatory [address] Repository 01/27/2018/01/28/20 [id number] Ambulatory [address] Repository 01/20/2018/01/22/20 [id number] Ambulatory [address] Repository 12/25/2017/12/26/19 [id number] Ambulatory [address] Repository 12/25/2017 [id number] Ambulatory [facility] ing:LAB Repository 12/24/2017/01/10/20 [id number] Ambulatory [address] Repository 12/20/2017/12/21/19 [id number] Ambulatory [address] Repository 11/12/2017/11/13/19 [id number] Ambulatory [address] Repository 11/12/2017/11/14/19 [id number] Ambulatory [address] Repository 09/24/2017/09/25/19 [id number] Ambulatory BMSBuilding:B Ange 18 MS.[facility] Repository 09/21/2017 [id number] [facility] ing:LAB Repository 09/14/2017 [id number] [facility] ing:LAB Repository 08/22/2017/08/24/19 [id number] Ambulatory [address] Repository 08/17/2017 [id number] Ambulatory [facility] Repository 06/28/2017/06/29/19 [id number] Ambulatory [address] Repository 05/22/2017 [id number] [facility] ing:MTLAB Repository 03/19/2017/03/19/20 [id number] Ambulatory BMSBuilding:B [place] [address] [place].[facility] Repository PAYERS PAYERS ENCOUNTER GUARANTOR PAYER SUBSCRIBER SOURCE 04/16/2018 MAGNOLIA Cooper Primary MAGNOLIA Contrerasoster [id number] Insurance:JULIANN GARGONDOB: Community [place] [id number] Number: Repository [phone]: [phone] [id number] [phone] Date:7667-53-08YK [address] [address]KJ: 04/16/2018 Secondary NOT GIVENUNK [place] Insurance:SELF PAY [facility] Number: Effective Repository Date:2018-04-16 04/16/2018 MAGNOLIA Cooper Primary MAGNOLIA Cooper Ange [id number] Insurance:HUMANA GOLD CARSONDOB: Community [employer] [id number] Number: Repository [phone]: ([phone] [id number] (HP) Date:4192-07-53IZ [address] [address]AF: 04/16/2018 Secondary NOT GIVENUNK [place] Insurance:SELF PAY [facility] Effective Repository Date:2018-03-20 03/20/2018 MAGNOLIA Cooper Primary MAGNOLIA Cooper [place] [id number] Insurance:HUMANA GOLD CARSONDOB: Community [facility] MEDIC[facility] [id number] Number: Repository [phone]: ([phone] [id number] (HP) Date:2791-04-50DG [address] [address]WK: 03/20/2018 Secondary NOT GIVENUNK Ange Insurance:SELF PAY [facility]: Effective Repository Date:2018-03-20 12/25/2017 MAGNOLIA Cooper Primary MAGNOLIA Cooper [place] [id number] Insurance:HUMANA GOLD CARSONDOB: Community [facility] MEDIC[facility] [id number] Number: Repository [phone]: ([phone] [id number] (HP) Date:0964-94-08AD [address] [address]PG: 12/25/2017 Secondary NOT GIVENUNK Ange Insurance:SELF PAY [facility] Number: Effective Repository Date:2017-12-25 09/24/2017 MAGNOLIA Cooper Primary MAGNOLIA Cooper Ange [id number] Insurance:HUMANA GOLD CARSONDOB: Community [facility] MEDIC[facility] [id number] Number: Repository [phone]: ([phone] [id number] 264 (HP) Date:3247-01-82HY [address] [address]EO: 09/24/2017 Secondary NOT GIVENUNK [place] Insurance:SELF PAY [facility] Number: Effective Repository Date:2017-09-24 09/21/2017 MAGNOLIA Cooper Primary MAGNOLIA Cooper An[place] [id number] Insurance:HUMANA GOLD CARSONDOB: Community [employer] [id number], [place] Number: Repository [address]Xpw: 330 [id number] 264 (HP) Date:2494-86-90IC [address] [place] [address]ML: 09/21/2017 Secondary NOT GIVENUNK Ange Insurance:SELF PAY [facility] Number: Effective Repository Date:2017-09-21 09/14/2017 MAGNOLIA Cooper Primary MAGNOLIA Cooper [place] [id number] Insurance:HUMANA GOLD CARSONDOB: Community [facility] [id number], [place] Number: Repository [address]Lxj: 330 [id number] 264 () Date:9853-09-31MS [address] [place] [address]BN: 09/14/2017 Secondary NOT GIVENUNK Ange Insurance:SELF PAY [facility] Number: Effective Repository Date:2017-09-14 05/22/2017 MAGNOLIA Cooper Primary MAGNOLIA Cooper [place] [id number] Insurance:HUMANA GOLD CARSONDOB: Community [id number] [place] Number[facility] Repository [address]Men: 330 [id number] 264 () Date:0149-37-46WU [address] [place] [address]HL: 05/22/2017 Secondary NOT GIVENUNK Ange Insurance:SELF PAY [facility] Number: Effective Repository Date:2017-05-22 03/19/2017 MAGNOLIA K Primary MAGNOLIA K [place] [id number] Insurance:HUMANA GOLD CARSONDOB: Community [employer]ARE[employer] [id number], [place] Number: Repository [address]Xhh: ([phone] [id number] [phone] () Date:4691-09-37[address] [address]CDDBHTVZG, [place] [address]TW: 03/19/2017 Secondary NOT GIVENUNK [place] Insurance:SELF PAY [facility] Number: Effective Repository Date:2017-03-02
== END ==
PROVIDERS: Family Provider Internal Medicine; PCP Internal Medicine; Referring Provider Physician Assistant Medical; Visit Provider Physician Assistant Medical
DX: R01.1 Cardiac murmur, unspecified (principal); I25.10 Atherosclerotic heart disease of native coronary artery without angina pectoris
CPT/HCPCS: 78452; 93017; 93306; A9500; A4216

== ENCOUNTER → 2018-06-06 07:15 | Outpatient (CLI) | payer MEDICARE, SELFPAY ==
[2018-03-20 10:29] VITALS: BMI 31.1
[2018-06-06 08:47] LABS: AST(SGOT) 20 U/L (15-37); Alanine Aminotransfer ALT/SGPT 21 U/L (13-56); Albumin, Serum 3.8 g/dL (3.2-5.0); Alkaline Phosphatase 91 U/L (45-117); Bilirubin, Direct 0.19 mg/dL (0.00-0.30); Cholesterol 174 mg/dL (200); Globulin 3.3 g/dL (2.2-4.2); High Density Lipoprotein 55 mg/dL; Protein, Total 7.1 g/dL (6.4-8.2); Triglycerides 95 mg/dL; Very Low Density Lipoprotein 19 mg/dL (5-40)
== END ==
PROVIDERS: Family Provider Internal Medicine; PCP Internal Medicine; Referring Provider Internal Medicine Cardiovascular Disease; Visit Provider Internal Medicine Cardiovascular Disease
DX: E78.5 Hyperlipidemia, unspecified (principal)
CPT/HCPCS: 36415; 80061; 80076

== ENCOUNTER → 2018-07-28 11:06 | Outpatient (CLI) | payer MEDICARE, SELFPAY ==
[2018-03-20 10:29] VITALS: BMI 31.1
[2018-07-28 12:50] LABS: Absolute Lymphocyte Count 2.68 X10^3/ul (0.83-4.51); Absolute Neutrophil Count 5.4 X10^3/uL (2.0-7.7); Basophil# 0.03 X10^3/uL; Basophil% 0.3 % (0-1); Eosinophil# 0.19 X10^3/uL; Eosinophils% 2.1 % (0-5); Hematocrit 41.5 % (37-47); Lymphocyte # 2.68 X10^3/ul (4.0); Lymphocyte % 29.8 % (19-41); Mean Corp Hgb Conc 33.7 g/gl (32-36); Mean Corpuscular Hgb 33.2 pg (27.0-32.0); Mean Corpuscular Volume 98.3 fL (81-99); Mean Platelet Vol. 11.3 fl (6.2-12.0); Monocyte# 0.65 X10^3/uL; Monocyte% 7.2 % (0-10); Neutrophil % 60.3 % (47-70); Platelet Count 256 K/mm3 (150-450); RBC Distribution Width CV 12.4 % (11.6-14.6); Red Blood Count 4.22 M/mm3 (4.2-5.4)
[2018-07-28 12:51] LABS: POSITIVE COUNT NO; POSITIVE DIFFERENTIAL NO; POSITIVE MORPHOLOGY NO
[2018-07-28 12:59] LABS: Vitamin D,25 Hydroxy 25.5 ng/mL (29.95-100.01)
[2018-07-28 13:05] LABS: ALB/GLOB Ratio 1.1 RATIO (0.9-2.4); AST(SGOT) 24 U/L (15-37); Alanine Aminotransfer ALT/SGPT 23 U/L (13-56); Albumin, Serum 3.8 g/dL (3.2-5.0); Alkaline Phosphatase 92 U/L (45-117); Anion Gap 2 (5-15); BUN 12 mg/dL (7-18); BUN/Creat Ratio 17.3 RATIO (10-20); Calcium,Total 8.7 mg/dL (8.5-10.1); Chloride 107 mmol/L (98-107); Cholesterol 191 mg/dL (200); EST Glomerular Filtration Rate 87 mL/min (>60); Est Glom Filt Rate - Afr Amer 105 mL/min (>60); Globulin 3.4 g/dL (2.2-4.2); Glucose 77 mg/dL (74-106); High Density Lipoprotein 55 mg/dL; Potassium 4.2 mmol/L (3.5-5.1); Protein, Total 7.2 g/dL (6.4-8.2); Sodium Level 139 mmol/L (136-145); Thyroid Stim Hormone (TSH) 1.56 uIU/mL (0.358-3.74); Triglycerides 128 mg/dL; Very Low Density Lipoprotein 26 mg/dL (5-40)
== END ==
PROVIDERS: Visit Provider Family Medicine Geriatric Medicine
DX: E11.9 Type 2 diabetes mellitus without complications (principal); E55.9 Vitamin D deficiency, unspecified
CPT/HCPCS: 36415; 80053; 80061; 82306; 84443; 85025

== ENCOUNTER → 2018-09-02 13:47 | Outpatient (CLI) | payer MEDICARE, SELFPAY ==
[2018-03-20 10:29] VITALS: BMI 31.1
--- NOTE | 2018-09-02 13:51 | BI_ITS ---
MAMMOGRAPHY - BILATERAL SCREENING REASON FOR EXAM: Female, 78 years old. Routine annual screening examination. PERTINENT HISTORY: Daughter with breast cancer. Sister with breast cancer. Mother with breast cancer. Aunt with breast cancer. TECHNIQUE: Digital bilateral breast ese (3D mammographic acquisition) in the CC and MLO projections. 2-D mediolateral oblique (MLO) and craniocaudad (CC) views of both breasts were obtained. CAD: Full Field Digital Mammography with Computer Added Detection was performed. COMPARISON: Comparison is made with prior outside examination dated June 28, 2017. FINDINGS: Breast Composition: There are scattered areas of fibroglandular density. There are no dominant masses or suspicious calcifications. No other significant abnormalities are identified. There has been no significant change since the prior study. BI/SCREEN MAMM (CAD) W/ESE BILAT IMPRESSION: Stable bilateral screening mammogram. Yearly follow-up mammogram recommended. (A) ASSESSMENT CATEGORY: BIRADS Category 1: Negative. A letter regarding these results will be sent to the patient by the facility within 30 days. Approximately 10% of breast cancers are not detected by mammography. A normal mammogram should not delay biopsy of a clinically suspicious abnormality. [id number] Electronically Signed: Wade Gomes, at 8:38 EDT , Service support ,
--- NOTE | 2018-09-02 14:15 | BD_ITS ---
STUDY: DUAL ENERGY X-RAY ABSORPTIOMETRY / DXA REASON FOR EXAM: Female, 78 years old. The patient is postmenopausal. Loss of height. TECHNIQUE: Bone Mineral Density (BMD) measurements of lumbar spine and bilateral hips were obtained. COMPARISON: None. FINDINGS: Lumbar Spine (L1-L4): g/cm2 (1.067) / T-score (-0.8) / Z-score (1.0) Findings are suggestive of normal bone density with a low fracture risk. Left Femur Total: g/cm2 (0.923) / T-score (-0.7) / Z-score (1.1) Left Femoral Neck: g/cm2 (0.890) / T-score (-1.1) / Z-score (0.9) Right Femur Total: g/cm2 (0.873) / T-score (-1.1) / Z-score (0.7) Right Femoral Neck: g/cm2 (0.749) / T-score (-2.1) / Z-score (-0.1) BD/Dexa Bone Density Study IMPRESSION: The patient is considered osteopenic as outlined below according to World [place] Organization (WHO) criteria with a moderate fracture risk. Reference Information: The T-score is the number of standard deviations above or below the standard which is normal for young adults at their peak bone mineral density. The World Health Organization (WHO) interprets the T-scores as follows: Above -1 Normal bone density Between -1 and -2.5 Osteopenia Equal to / or below -2.5 Osteoporosis As a practical clinical guideline, osteopenia may be graded as follows: Mild -1 through -1.5 Moderate -1.6 through -2.0 Severe -2.1 through -2.4 The Z-score is the number of standard deviations above or below age-matched controls. A Z-score of less than -1.5 would be considered abnormal. References: 1. NIH Osteoporosis and Related Bone Diseases http://www.osteo.org 2. International Society for Clinical Densitometry http://www.iscd.org 3. National Osteoporosis Foundation http://www.nof.org Electronically Signed: Wade Gomes, at 15:11 EDT , Service support ,
== END ==
PROVIDERS: Family Provider Family Medicine Geriatric Medicine; PCP Family Medicine Geriatric Medicine; Referring Provider Family Medicine Geriatric Medicine; Visit Provider Family Medicine Geriatric Medicine
DX: Z12.31 Encounter for screening mammogram for malignant neoplasm of breast (principal); Z78.0 Asymptomatic menopausal state
CPT/HCPCS: 77063; 77067; 77080

== ENCOUNTER → 2018-10-27 14:21 | Outpatient (CLI) | payer MEDICARE, SELFPAY ==
[2018-10-23 08:46] VITALS: BMI 33.0
[2018-10-27 15:27] LABS: Absolute Lymphocyte Count 2.51 X10^3/uL (0.83-4.51); Absolute Neutrophil Count 4.7 X10^3/uL (2.0-7.7); Basophil# 0.04 X10^3/uL; Basophil% 0.5 % (0-1); Eosinophil# 0.25 X10^3/uL; Hematocrit 36.9 % (37-47); Lymphocyte # 2.51 X10^3/ul (4.0); Lymphocyte % 30.6 % (19-41); Mean Corp Hgb Conc 32.5 g/dL (32-36); Mean Corpuscular Hgb 32.8 pg (27.0-32.0); Mean Corpuscular Volume 100.8 fL (81-99); Mean Platelet Vol. 10.8 fl (6.2-12.0); Monocyte# 0.63 X10^3/uL; Monocyte% 7.7 % (0-10); NRBC Flagged by Analyzer 0 % (0-5); Neutrophil # 4.74 X10^3/uL (2.7-7.7); Neutrophil % 57.8 % (47-70); Platelet Count 211 K/mm3 (150-450); RBC Distribution Width CV 12.6 % (11.6-14.6); RBC Distribution Width SD 46.6 fl (35.1-43.9); Red Blood Count 3.66 M/mm3 (4.2-5.4); White Blood Count 8.2 K/mm3 (4.4-11.0)
[2018-10-27 15:49] LABS: ALB/GLOB Ratio 1.1 RATIO (0.9-2.4); AST(SGOT) 15 U/L (15-37); Alanine Aminotransfer ALT/SGPT 18 U/L (13-56); Albumin, Serum 3.5 g/dL (3.2-5.0); Alkaline Phosphatase 88 U/L (45-117); Anion Gap 4 (5-15); BUN 15 mg/dL (7-18); BUN/Creat Ratio 16.4 RATIO (10-20); Calcium,Total 8.7 mg/dL (8.5-10.1); Chloride 103 mmol/L (98-107); Cholesterol 129 mg/dL (200); Creatinine, Serum 0.91 mg/dL (0.55-1.02); EST Glomerular Filtration Rate 64 mL/min (>60); Est Glom Filt Rate - Afr Amer 77 mL/min (>60); Globulin 3.2 g/dL (2.2-4.2); Glucose 105 mg/dL (74-106); High Density Lipoprotein 57 mg/dL; Potassium 4.9 mmol/L (3.5-5.1); Protein, Total 6.7 g/dL (6.4-8.2); Sodium Level 137 mmol/L (136-145); Thyroid Stim Hormone (TSH) 1.45 uIU/mL (0.358-3.74); Triglycerides 95 mg/dL; Very Low Density Lipoprotein 19 mg/dL (5-40)
== END ==
PROVIDERS: Family Provider Family Medicine Geriatric Medicine; PCP Internal Medicine; Visit Provider Family Medicine Geriatric Medicine
DX: I10 Essential (primary) hypertension (principal); E78.5 Hyperlipidemia, unspecified
CPT/HCPCS: 36415; 80053; 80061; 84443; 85025

== ENCOUNTER 2019-01-26 14:02 | Emergency (ER) | payer MEDICARE, SELFPAY ==
[2018-10-23 08:46] VITALS: BMI 33.0
[2019-01-26 14:03] VITALS: BP 177/69; PULSE 83; RESP 16; TEMP 36.6; O2SAT 95; BMI 40.8
--- NOTE | 2019-01-26 14:58 | ED.VIS.GEN ---
History of Present Illness Chief Complaint: Fall Informant: Patient Onset: Today Current Severity: Mild Narrative: Patient indicates she slipped and fell on a curb, she fell striking her face she has a left upper lip laceration no LOC no headache no neck pain no numbness weeks paresthesias no other complaints Past Medical History - Allergies and Home Meds Allergies/Adverse Reactions: Allergies lisinopril Adverse Reaction (Verified 01/26/19 14:03) COUGH shellfish Allergy (Uncoded 01/26/19 14:03) lip swelling, diarrhea Primary Care Physician: Bryson Velazquez Chi, MD [Primary Care Provider] - Past Medical History: - Surgical History: appendectomy, coronary bypass surgery Smoking Status: Former smoker Review of Systems ROS: - Use as above General: Reports: - - Complaint is she appears to have bitten through the left upper lip. Denies: Chills, Fever, Sweats Eyes: Denies: Visual changes - bilaterally, Diplopia ENT: Denies: Rhinorrhea, Sore throat Cardiovascular: Denies: Chest pain, Palpitations Respiratory: Denies: Dyspnea, Cough, Dyspnea on exertion Gastrointestinal: Denies: Abdominal pain, Nausea, Vomiting, Diarrhea, Melena, Hematochezia Genitourinary: Denies: Dysuria, Hematuria, Frequency Musculoskeletal: Denies: Back pain, Extremity Pain Skin: Denies: Rash, Wounds Neurological: Denies: Headache, Weakness, Numbness Physical Exam Vital Signs/Narrative: Vital Signs Temp Pulse Resp BP Pulse Ox 01/26/19 14:03 97.9 F 83 16 177/69 H 95 General: Well nourished, Well developed, No Acute Distress Head: Normocephalic, Atraumatic, - - 1 cm very linear laceration to the left upper lip through the mucosal surface it appears to be through and through there is a very minor tiny signs that she could have abraded or chipped some of her incisor teeth her maxilla is nontender her mandible is nontender full mouth opening HEENT neuro exam neck exam general medical exam entirely negative Eyes: Perrl, EOMI ENT: Moist mucous membranes, No rhinorrhea Neck: Supple, Nontender Cardiovascular: Regular rate, Regular rhythm, No murmurs Respiratory: No distress, CTA bilaterally, Chest nontender Abdomen: Soft, Nontender, Nondistended, Normal bowel sounds Back: Nontender, Normal Inspection Extremities: Nontender, No edema Skin: Normal color, No rash Neurological: Alert, Oriented x3, Cranial nerves II-XII grossly intact, Normal Strength, Normal Sensation Psychological: Normal affect, Normal Mood Diagnostic/Tx/Re-eval - Medical Decision Making Observed here in the department. We have cleansed the lip when I went to back to suture at the wound margins were well approximated the patient declined suturing and there is no bleeding or pain she will follow-up with her dentist and return for change in symptoms use Tylenol for pain she will be started on Pen-Vee K Home stable Impression Final Fall with 1 cm left upper lip laceration patient deferred suturing ED Disposition - Plan for ED Patient: Diagnosis: Lip laceration Instructions: FALL, Mechanical, LACERATION, All Prescriptions: Penicillin Vk [Pen-Vee K 250MG] 500 mg PO 4X/DAY #40 tab Prescription Printed Referrals: Bryson Velazquez Chi, MD [Primary Care Provider] - Additional Instructions: Follow-up with your dentist
[2019-01-26] MEDS: Penicillin Vk 250 MG Tablet 500 MG PO (15:42)
--- NOTE | 2019-01-26 15:46 | ED.RN ---
DISCHARGE INSTRUCTIONS GIVEN TO AND REVIEWED WITH PATIENT, PATIENT DENIES QUESTIONS OR CONCERNS AND VOICES UNDERSTANDING OF DISCHARGE INSTRUCTIONS. PT AMBULATES TO WAITING ROOM WITHOUT DIFFICULTY.
== END 2019-01-26 15:46 | disposition home or self-care (01) ==
PROVIDERS: Emergency Provider Emergency Medicine; Family Provider Family Medicine Geriatric Medicine; PCP Family Medicine Geriatric Medicine
DX: S01.511A Laceration without foreign body of lip, initial encounter (principal); Z87.891 Personal history of nicotine dependence; W01.0XXA Fall on same level from slipping, tripping and stumbling without subsequent striking against object, initial encounter; Y93.01 Activity, walking, marching and hiking; Y92.89 Other specified places as the place of occurrence of the external cause; Y99.8 Other external cause status
CPT/HCPCS: 99284

== ENCOUNTER → 2019-02-02 08:03 | Outpatient (CLI) | payer MEDICARE, SELFPAY ==
[2019-01-26 14:03] VITALS: BMI 40.8
[2019-02-02 12:44] LABS: Absolute Lymphocyte Count 2.27 X10^3/uL (0.83-4.51); Absolute Neutrophil Count 3.8 X10^3/uL (2.0-7.7); Basophil# 0.04 X10^3/uL; Basophil% 0.6 % (0-1); Eosinophil# 0.32 X10^3/uL; Eosinophils% 4.6 % (0-5); Hematocrit 37.2 % (37-47); Hemoglobin 12.1 g/dL (12.0-15.0); Lymphocyte # 2.27 X10^3/ul (4.0); Lymphocyte % 32.8 % (19-41); Mean Corp Hgb Conc 32.5 g/dL (32-36); Mean Corpuscular Hgb 33.2 pg (27.0-32.0); Mean Corpuscular Volume 101.9 fL (81-99); Mean Platelet Vol. 10.8 fl (6.2-12.0); Monocyte# 0.48 X10^3/uL; Monocyte% 6.9 % (0-10); NRBC Flagged by Analyzer 0 % (0-5); Neutrophil # 3.81 X10^3/uL (2.7-7.7); Platelet Count 266 K/mm3 (150-450); RBC Distribution Width CV 12.6 % (11.6-14.6); RBC Distribution Width SD 48.1 fl (35.1-43.9); Red Blood Count 3.65 M/mm3 (4.2-5.4); White Blood Count 6.9 K/mm3 (4.4-11.0)
[2019-02-02 13:02] LABS: Vitamin D,25 Hydroxy 45.5 ng/mL (29.95-100.01)
[2019-02-02 13:12] LABS: AST(SGOT) 18 U/L (15-37); Alanine Aminotransfer ALT/SGPT 20 U/L (13-56); Albumin, Serum 3.4 g/dL (3.2-5.0); Alkaline Phosphatase 67 U/L (45-117); Anion Gap 7 (5-15); BUN 8 mg/dL (7-18); BUN/Creat Ratio 12.6 RATIO (10-20); Calcium,Total 9.1 mg/dL (8.5-10.1); Chloride 102 mmol/L (98-107); Cholesterol 145 mg/dL (200); Creatinine, Serum 0.64 mg/dL (0.55-1.02); EST Glomerular Filtration Rate 96 mL/min (>60); Est Glom Filt Rate - Afr Amer 116 mL/min (>60); Globulin 3.4 g/dL (2.2-4.2); Glucose 130 mg/dL (74-106); High Density Lipoprotein 52 mg/dL; Potassium 4.5 mmol/L (3.5-5.1); Protein, Total 6.8 g/dL (6.4-8.2); Sodium Level 138 mmol/L (136-145); Thyroid Stim Hormone (TSH) 1.13 uIU/mL (0.358-3.74); Triglycerides 83 mg/dL; Very Low Density Lipoprotein 17 mg/dL (5-40)
== END ==
PROVIDERS: Family Provider Family Medicine Geriatric Medicine; PCP Family Medicine Geriatric Medicine; Referring Provider Family Medicine Geriatric Medicine; Visit Provider Family Medicine Geriatric Medicine
DX: E55.9 Vitamin D deficiency, unspecified (principal); I10 Essential (primary) hypertension; E11.65 Type 2 diabetes mellitus with hyperglycemia; E78.5 Hyperlipidemia, unspecified
CPT/HCPCS: 36415; 80053; 80061; 82306; 84443; 85025

== ENCOUNTER → 2019-04-29 10:12 | Outpatient (CLI) | payer MEDICARE, SELFPAY ==
[2019-04-29 12:32] LABS: Absolute Lymphocyte Count 2.42 X10^3/uL (0.83-4.51); Absolute Neutrophil Count 4.7 X10^3/uL (2.0-7.7); Basophil# 0.05 X10^3/uL; Basophil% 0.6 % (0-1); Eosinophil# 0.15 X10^3/uL; Eosinophils% 1.9 % (0-5); Hematocrit 39.1 % (37-47); Hemoglobin 12.9 g/dL (12.0-15.0); Lymphocyte # 2.42 X10^3/ul (4.0); Lymphocyte % 30.7 % (19-41); Mean Corpuscular Hgb 32.6 pg (27.0-32.0); Mean Corpuscular Volume 98.7 fL (81-99); Mean Platelet Vol. 10.8 fl (6.2-12.0); Monocyte# 0.53 X10^3/uL; Monocyte% 6.7 % (0-10); NRBC Flagged by Analyzer 0 % (0-5); Neutrophil # 4.72 X10^3/uL (2.7-7.7); Platelet Count 242 K/mm3 (150-450); RBC Distribution Width CV 12.2 % (11.6-14.6); RBC Distribution Width SD 44.2 fl (35.1-43.9); Red Blood Count 3.96 M/mm3 (4.2-5.4); White Blood Count 7.9 K/mm3 (4.4-11.0)
[2019-04-29 12:43] LABS: Vitamin D,25 Hydroxy 36.1 ng/mL (29.95-100.01)
[2019-04-29 12:54] LABS: ALB/GLOB Ratio 1.1 RATIO (0.9-2.4); AST(SGOT) 17 U/L (15-37); Alanine Aminotransfer ALT/SGPT 26 U/L (13-56); Albumin, Serum 3.5 g/dL (3.2-5.0); Alkaline Phosphatase 89 U/L (45-117); Anion Gap 4 (5-15); BUN 12 mg/dL (7-18); BUN/Creat Ratio 15.5 RATIO (10-20); Calcium,Total 9.2 mg/dL (8.5-10.1); Chloride 103 mmol/L (98-107); Cholesterol 172 mg/dL (200); Creatinine, Serum 0.78 mg/dL (0.55-1.02); EST Glomerular Filtration Rate 77 mL/min (>60); Est Glom Filt Rate - Afr Amer 93 mL/min (>60); Globulin 3.3 g/dL (2.2-4.2); Glucose 150 mg/dL (74-106); High Density Lipoprotein 55 mg/dL; Potassium 4.6 mmol/L (3.5-5.1); Protein, Total 6.8 g/dL (6.4-8.2); Sodium Level 136 mmol/L (136-145); Thyroid Stim Hormone (TSH) 1.59 uIU/mL (0.358-3.74); Triglycerides 97 mg/dL; Very Low Density Lipoprotein 19 mg/dL (5-40)
== END ==
PROVIDERS: PCP Family Medicine Geriatric Medicine; Visit Provider Family Medicine Geriatric Medicine
DX: E11.65 Type 2 diabetes mellitus with hyperglycemia (principal); E55.9 Vitamin D deficiency, unspecified; E78.5 Hyperlipidemia, unspecified; I10 Essential (primary) hypertension
CPT/HCPCS: 36415; 80053; 80061; 82306; 84443; 85025

== ENCOUNTER → 2019-05-27 08:09 | Outpatient (CLI) | payer MEDICARE, SELFPAY ==
[2019-05-27 09:12] LABS: AST(SGOT) 18 U/L (15-37); Alanine Aminotransfer ALT/SGPT 21 U/L (13-56); Albumin, Serum 3.7 g/dL (3.2-5.0); Alkaline Phosphatase 81 U/L (45-117); Bilirubin, Direct 0.24 mg/dL (0.00-0.30); Cholesterol 150 mg/dL (200); Globulin 3.4 g/dL (2.2-4.2); High Density Lipoprotein 60 mg/dL; Protein, Total 7.1 g/dL (6.4-8.2); Triglycerides 79 mg/dL; Very Low Density Lipoprotein 16 mg/dL (5-40)
== END ==
PROVIDERS: PCP Family Medicine Geriatric Medicine; Referring Provider Internal Medicine Cardiovascular Disease; Visit Provider Internal Medicine Cardiovascular Disease
DX: E78.5 Hyperlipidemia, unspecified (principal)
CPT/HCPCS: 36415; 80061; 80076

== ENCOUNTER → 2019-08-03 08:03 | Outpatient (CLI) | payer MEDICARE, SELFPAY ==
[2019-05-28 13:25] VITALS: BMI 29.2
[2019-08-03 08:18] LABS: Absolute Lymphocyte Count 2.31 X10^3/uL (0.83-4.51); Absolute Neutrophil Count 3.9 X10^3/uL (2.0-7.7); Basophil# 0.04 X10^3/uL; Basophil% 0.6 % (0-1); Eosinophil# 0.15 X10^3/uL; Eosinophils% 2.2 % (0-5); Hematocrit 40.1 % (37-47); Hemoglobin 13.7 g/dL (12.0-15.0); Lymphocyte # 2.31 X10^3/ul (4.0); Lymphocyte % 33.3 % (19-41); Mean Corp Hgb Conc 34.2 g/dL (32-36); Mean Corpuscular Hgb 33.3 pg (27.0-32.0); Mean Corpuscular Volume 97.6 fL (81-99); Mean Platelet Vol. 10.1 fl (6.2-12.0); Monocyte# 0.52 X10^3/uL; Monocyte% 7.5 % (0-10); NRBC Flagged by Analyzer 0 % (0-5); Neutrophil # 3.89 X10^3/uL (2.7-7.7); Platelet Count 288 K/mm3 (150-450); RBC Distribution Width CV 11.9 % (11.6-14.6); RBC Distribution Width SD 42.8 fl (35.1-43.9); Red Blood Count 4.11 M/mm3 (4.2-5.4); White Blood Count 6.9 K/mm3 (4.4-11.0)
[2019-08-03 08:48] LABS: Vitamin D,25 Hydroxy 59.6 ng/mL
[2019-08-03 08:52] LABS: Hemoglobin A1c 7.8 % (4.2-6.3)
[2019-08-03 08:55] LABS: ALB/GLOB Ratio 1.1 RATIO (0.9-2.4); AST(SGOT) 25 U/L (15-37); Alanine Aminotransfer ALT/SGPT 19 U/L (13-56); Albumin, Serum 3.6 g/dL (3.2-5.0); Alkaline Phosphatase 73 U/L (45-117); Anion Gap 5 (5-15); BUN 10 mg/dL (7-18); BUN/Creat Ratio 13.9 RATIO (10-20); Calcium,Total 8.9 mg/dL (8.5-10.1); Chloride 104 mmol/L (98-107); Cholesterol 158 mg/dL (200); Creatinine, Serum 0.72 mg/dL (0.55-1.02); EST Glomerular Filtration Rate 83 mL/min (>60); Est Glom Filt Rate - Afr Amer 101 mL/min (>60); Globulin 3.3 g/dL (2.2-4.2); Glucose 123 mg/dL (74-106); High Density Lipoprotein 55 mg/dL; Potassium 4.1 mmol/L (3.5-5.1); Protein, Total 6.9 g/dL (6.4-8.2); Sodium Level 136 mmol/L (136-145); Thyroid Stim Hormone (TSH) 1.54 uIU/mL (0.358-3.74); Triglycerides 77 mg/dL; Very Low Density Lipoprotein 15 mg/dL (5-40)
== END ==
PROVIDERS: PCP Family Medicine Geriatric Medicine; Referring Provider Family Medicine Geriatric Medicine; Visit Provider Family Medicine Geriatric Medicine
DX: E11.9 Type 2 diabetes mellitus without complications (principal); I10 Essential (primary) hypertension; E78.5 Hyperlipidemia, unspecified; E55.9 Vitamin D deficiency, unspecified
CPT/HCPCS: 36415; 80053; 80061; 82306; 83036; 84443; 85025

== ENCOUNTER → 2019-10-19 11:44 | Outpatient (CLI) | payer MEDICARE, SELFPAY ==
[2019-05-28 13:25] VITALS: BMI 29.2
[2019-10-19 12:48] LABS: Absolute Lymphocyte Count 2.75 X10^3/uL (0.83-4.51); Absolute Neutrophil Count 4.8 X10^3/uL (2.0-7.7); Basophil# 0.05 X10^3/uL; Basophil% 0.6 % (0-1); Eosinophil# 0.19 X10^3/uL; Eosinophils% 2.3 % (0-5); Hematocrit 39.8 % (37-47); Hemoglobin 13.1 g/dL (12.0-15.0); Lymphocyte # 2.75 X10^3/ul (4.0); Lymphocyte % 32.9 % (19-41); Mean Corp Hgb Conc 32.9 g/dL (32-36); Mean Corpuscular Hgb 32.8 pg (27.0-32.0); Mean Corpuscular Volume 99.5 fL (81-99); Mean Platelet Vol. 11.3 fl (6.2-12.0); Monocyte# 0.53 X10^3/uL; Monocyte% 6.3 % (0-10); NRBC Flagged by Analyzer 0 % (0-5); Neutrophil # 4.83 X10^3/uL (2.7-7.7); Neutrophil % 57.7 % (47-70); Platelet Count 255 K/mm3 (150-450); RBC Distribution Width CV 11.7 % (11.6-14.6); RBC Distribution Width SD 42.5 fl (35.1-43.9); White Blood Count 8.4 K/mm3 (4.4-11.0)
[2019-10-19 13:10] LABS: AST(SGOT) 16 U/L (15-37); Alanine Aminotransfer ALT/SGPT 19 U/L (13-56); Albumin, Serum 3.6 g/dL (3.2-5.0); Alkaline Phosphatase 109 U/L (45-117); Anion Gap 4 (5-15); BUN 15 mg/dL (7-18); BUN/Creat Ratio 20.9 RATIO (10-20); Calcium,Total 8.9 mg/dL (8.5-10.1); Chloride 105 mmol/L (98-107); Cholesterol 188 mg/dL (200); Creatinine, Serum 0.72 mg/dL (0.55-1.02); EST Glomerular Filtration Rate 84 mL/min (>60); Est Glom Filt Rate - Afr Amer 102 mL/min (>60); Globulin 3.6 g/dL (2.2-4.2); Glucose 215 mg/dL (74-106); High Density Lipoprotein 52 mg/dL; Potassium 4.4 mmol/L (3.5-5.1); Protein, Total 7.2 g/dL (6.4-8.2); Sodium Level 138 mmol/L (136-145); Thyroid Stim Hormone (TSH) 1.35 uIU/mL (0.358-3.74); Triglycerides 139 mg/dL; Very Low Density Lipoprotein 28 mg/dL (5-40)
[2019-10-21 13:48] LABS: Vitamin D,25 Hydroxy 57.7 ng/mL
== END ==
PROVIDERS: PCP Family Medicine Geriatric Medicine; Visit Provider Family Medicine Geriatric Medicine
DX: E55.9 Vitamin D deficiency, unspecified (principal); E78.5 Hyperlipidemia, unspecified; I10 Essential (primary) hypertension; E11.65 Type 2 diabetes mellitus with hyperglycemia
CPT/HCPCS: 36415; 80053; 80061; 82306; 84443; 85025

== ENCOUNTER → 2020-01-18 10:41 | Outpatient (CLI) | payer MEDICARE, SELFPAY ==
[2019-12-29 13:52] VITALS: BMI 29.2
[2020-01-18 12:22] LABS: Absolute Lymphocyte Count 2.77 X10^3/uL (0.83-4.51); Basophil# 0.05 X10^3/uL; Basophil% 0.5 % (0-1); Eosinophil# 0.22 X10^3/uL; Eosinophils% 2.3 % (0-5); Hematocrit 40.9 % (37-47); Hemoglobin 13.5 g/dL (12.0-15.0); Lymphocyte # 2.77 X10^3/ul (4.0); Lymphocyte % 28.5 % (19-41); Mean Corpuscular Hgb 33.1 pg (27.0-32.0); Mean Corpuscular Volume 100.2 fL (81-99); Mean Platelet Vol. 11.1 fl (6.2-12.0); Monocyte# 0.63 X10^3/uL; Monocyte% 6.5 % (0-10); NRBC Flagged by Analyzer 0 % (0-5); Neutrophil # 6.01 X10^3/uL (2.7-7.7); Neutrophil % 61.9 % (47-70); Platelet Count 289 K/mm3 (150-450); RBC Distribution Width CV 11.9 % (11.6-14.6); RBC Distribution Width SD 43.4 fl (35.1-43.9); Red Blood Count 4.08 M/mm3 (4.2-5.4); White Blood Count 9.7 K/mm3 (4.4-11.0)
[2020-01-18 12:29] LABS: Vitamin D,25 Hydroxy 47.1 ng/mL
[2020-01-18 12:36] LABS: AST(SGOT) 17 U/L (15-37); Alanine Aminotransfer ALT/SGPT 25 U/L (13-56); Albumin, Serum 3.6 g/dL (3.2-5.0); Alkaline Phosphatase 108 U/L (45-117); Anion Gap 7 (5-15); BUN 12 mg/dL (7-18); BUN/Creat Ratio 17.1 RATIO (10-20); Calcium,Total 8.9 mg/dL (8.5-10.1); Chloride 102 mmol/L (98-107); Cholesterol 170 mg/dL (200); EST Glomerular Filtration Rate 86 mL/min (>60); Est Glom Filt Rate - Afr Amer 104 mL/min (>60); Globulin 3.6 g/dL (2.2-4.2); Glucose 96 mg/dL (74-106); High Density Lipoprotein 52 mg/dL; Potassium 4.4 mmol/L (3.5-5.1); Protein, Total 7.2 g/dL (6.4-8.2); Sodium Level 139 mmol/L (136-145); Thyroid Stim Hormone (TSH) 1.07 uIU/mL (0.358-3.74); Triglycerides 165 mg/dL; Very Low Density Lipoprotein 33 mg/dL (5-40)
== END ==
PROVIDERS: PCP Family Medicine Geriatric Medicine; Visit Provider Family Medicine Geriatric Medicine
DX: E11.65 Type 2 diabetes mellitus with hyperglycemia (principal); E55.9 Vitamin D deficiency, unspecified; E78.5 Hyperlipidemia, unspecified; I10 Essential (primary) hypertension
CPT/HCPCS: 36415; 80053; 80061; 82306; 84443; 85025

== ENCOUNTER 2020-06-07 11:25 | Outpatient (RCR) | payer MEDICARE, SELFPAY ==
[2019-12-29 13:52] VITALS: BMI 29.2
[2020-06-07] MEDS: COVID-19 VACC, MRNA(PFIZER)/PF 30 MCG/0.3 ML SYRINGE IM (16:03)
[2020-06-28] MEDS: COVID-19 VACC, MRNA(PFIZER)/PF 30 MCG/0.3 ML SYRINGE IM (16:00)
== END 2020-09-06 23:59 ==
LOC: IMMUN 11:25
PROVIDERS: PCP Family Medicine Geriatric Medicine; Referring Provider Family Medicine; Visit Provider Family Medicine
DX: Z23 Encounter for immunization (principal)
CPT/HCPCS: 0001A; 0002A; 91300

== ENCOUNTER → 2020-12-27 11:15 | Outpatient (CLI) | payer MEDICARE, SELFPAY ==
--- NOTE | 2020-12-27 11:25 | RAD_ITS ---
STUDY: X-RAY CHEST REASON FOR EXAM: Female, 80 years old. cad TECHNIQUE: PA and lateral views of the chest. COMPARISON: 11/27/2013 FINDINGS: CABG and sternal wires are demonstrated. The lungs are clear and expanded. There is no demonstrated pleural abnormality. Normal size heart. Normal mediastinum and marilou. Normal visualized pulmonary arteries. Normal visualized aortic arch and descending thoracic aorta. There are diffuse degenerative changes of the visualized thoracic spine. Normal visualized ribs, clavicles, and shoulders. There is no demonstrated abnormality of the visualized soft tissue structures of the upper abdomen. RAD/Chest PA and Lateral IMPRESSION: No acute abnormal cardiopulmonary finding. Electronically Signed: Fernando Brooks MD at 23:05 EDT Tel , Service support ,
[2020-12-27 12:57] LABS: Absolute Lymphocyte Count 1.41 X10^3/uL (0.83-4.51); Absolute Neutrophil Count 4.5 X10^3/uL (2.0-7.7); Basophil# 0.05 X10^3/uL; Basophil% 0.8 % (0-1); Eosinophil# 0.17 X10^3/uL; Eosinophils% 2.6 % (0-5); Hematocrit 36.9 % (37-47); Hemoglobin 11.8 g/dL (12.0-15.0); Lymphocyte # 1.41 X10^3/ul (0.83-4.51); Lymphocyte % 21.4 % (19-41); Mean Corpuscular Hgb 32.9 pg (27.0-32.0); Mean Corpuscular Volume 102.8 fL (81-99); Mean Platelet Vol. 10.4 fl (6.2-12.0); Monocyte# 0.49 X10^3/uL; Monocyte% 7.4 % (0-10); NRBC Flagged by Analyzer 0 % (0-5); Neutrophil # 4.45 X10^3/uL (2.7-7.7); Neutrophil % 67.5 % (47-70); Platelet Count 227 K/mm3 (150-450); RBC Distribution Width CV 13.4 % (11.6-14.6); RBC Distribution Width SD 51.2 fl (35.1-43.9); Red Blood Count 3.59 M/mm3 (4.2-5.4); White Blood Count 6.6 K/mm3 (4.4-11.0)
[2020-12-27 13:33] LABS: Anion Gap 6 (5-15); BUN 13 mg/dL (7-18); BUN/Creat Ratio 13.1 RATIO (10-20); Calcium,Total 9.4 mg/dL (8.5-10.1); Chloride 104 mmol/L (98-107); Creatinine, Serum 0.99 mg/dL (0.55-1.02); EST Glomerular Filtration Rate 57 mL/min (>60); Est Glom Filt Rate - Afr Amer 69 mL/min (>60); Glucose 372 mg/dL (74-106); Potassium 4.2 mmol/L (3.5-5.1); Sodium Level 139 mmol/L (136-145)
== END ==
PROVIDERS: PCP Family Medicine Geriatric Medicine; Referring Provider Internal Medicine Cardiovascular Disease; Visit Provider Internal Medicine Cardiovascular Disease
DX: R06.00 Dyspnea, unspecified (principal); E78.00 Pure hypercholesterolemia, unspecified; I25.10 Atherosclerotic heart disease of native coronary artery without angina pectoris; Z95.1 Presence of aortocoronary bypass graft
CPT/HCPCS: 36415; 71046; 80048; 85025

== ENCOUNTER → 2021-01-03 13:46 | Outpatient (CLI) | payer MEDICARE, SELFPAY ==
--- NOTE | 2021-01-03 13:47 | ECHOD_ITS ---
Reason For Study: CAD/ASHD, S/P CABG Procedure This was a 2D Doppler, Color Flow transthoracic echocardiogram. Exam performed in department. Left Ventricle Normal LV size. Left ventricular systolic function is normal. The estimated ejection fraction is 55 %. Stage 2 diastolic dysfunction. No regional wall motion abnormalities noted. Right Ventricle Normal RV size. Normal systolic function. Atria Normal left atrium. Normal right atrium. Mitral Valve There is moderate mitral annular calcification. Moderate (2+) eccentric mitral valve insufficiency. Tricuspid Valve Normal tricuspid valve. Moderate (2+) tricuspid valve insufficiency. Pulmonary artery systolic pressure is 60 mmHg. Moderate pulmonary hypertension. Aortic Valve Trisinus/trileaflet aortic valve. Moderate focal aortic valve calcification. Peak aortic valve gradient 36 mmHg. Mean aortic valve gradient 21 mmHg. Mild aortic stenosis. Calculated aortic valve area (continuity equation) is 1.5 cm2. Mild (1+) aortic valve insufficiency. Pulmonic Valve Normal pulmonic valve. Trivial pulmonic valve insufficiency. Great Vessels Normal aortic root. The pulmonary artery is normal size. and partially collapses. MMode/2D Measurements & Calculations LVIDd: 4.5 cm IVSd: 0.93 cm LVOT diam: 2.0 cm LVIDs: 3.2 cm LVPWd: 0.93 cm LVOT area: 3.2 cm2 RVDd: 3.7 cm FS: 28.6 % Ao root diam: 3.6 cm LAV(MOD-bp): 68.6 ml LA A4 area: 22.2 cm2 LAV(MOD-bp) Indexed: 39.7 ml/m2 LAV(MOD-sp2): 76.4 ml LAV(MOD-sp4): 61.0 ml LA dimension(2D): 4.4 cm RA A4 area: 20.9 cm2 Time Measurements MV dec time: 0.30 sec Doppler Measurements & Calculations MV E max ascencion: 232.7 cm/sec Lat Peak E' Ascencion: 6.8 cm/sec Med Peak E' Ascencion: 7.8 cm/sec MV A max ascencion: 131.4 cm/sec E/E' lat: 34.0 E/E' med: 29.8 MV E/A: 1.8 MV V2 max: 242.3 cm/sec Ao V2 max: 301.0 cm/sec AI max ascencion: 402.6 cm/sec MV max P.5 mmHg Ao max P.3 mmHg AI max P.8 mmHg MV V2 mean: 139.8 cm/sec Ao V2 mean: 218.2 cm/sec AI dec slope: 269.0 cm/sec2 MV mean P.8 mmHg Ao mean P.0 mmHg AI P1/2t: 438.3 msec MV V2 VTI: 69.6 cm Ao V2 VTI: 67.7 cm MVA(VTI): 1.6 cm2 TANIKA(I,D): 1.6 cm2 TANIKA(V,D): 1.5 cm2 LV V1 max: 143.8 cm/sec MR max ascencion: 552.8 cm/sec SV(LVOT): 109.0 ml LV V1 max P.9 mmHg MR max P.2 mmHg LV V1 mean P.4 mmHg MR mean ascencion: 428.8 cm/sec LV V1 mean: 105.1 cm/sec MR mean P.8 mmHg LV V1 VTI: 33.6 cm MR VTI: 164.8 cm PA V2 max: 100.5 cm/sec TR max ascencion: 372.4 cm/sec TR max P.5 mmHg ECHO/Echo Complete Interpretation Summary Normal LV size. Left ventricular systolic function is normal. Stage 2 diastolic dysfunction. The estimated ejection fraction is 55 %. Pulmonary artery systolic pressure is 60 mmHg. Moderate pulmonary hypertension. Compared to the previous the extent of the mitral regurgitation is worse in the pulmonary artery systolic pressure is also higher. Moderate (2+) eccentric mitral valve insufficiency. Ordering Physician: Guicho Hoyos Referring Physician: Bryson Velazquez Chi Performed By: Lisa Connelly, COOPER, RVT
== END ==
PROVIDERS: PCP Family Medicine Geriatric Medicine; Referring Provider Internal Medicine Cardiovascular Disease; Visit Provider Internal Medicine Cardiovascular Disease
DX: I25.10 Atherosclerotic heart disease of native coronary artery without angina pectoris (principal)
CPT/HCPCS: 93306

== ENCOUNTER 2021-01-04 06:56 | Day surgery (SDC) | payer MEDICARE, SELFPAY ==
[2021-01-03 07:57] VITALS: BMI 30.6
[2021-01-04 08:11] LABS: Base Excess 4 mmol/L (-2 to +2); Bicarbonate 28.6 mmol/L (22-26); Blood Gas Specimen Type ART; PO2 63 mmHG (75-100); SO2 92 % (95-99); Total Carbon Dioxide 30 mmol/L; pH 7.43 (7.35-7.45)
[2021-01-04 08:15] LABS: Blood Gas Specimen Type VEN; VBG BASE EXCESS 4 mmol/L (-1.0-3.5); VBG Bicarbonate 28 mmol/L (22-26); VBG PO2 34 mmHg (25-40); VBG SO2 64 % (50-70); VBG TCO2 30 mmol/L (23-33); VBG pCO2 46.3 mmHg (41-51)
[2021-01-04 08:20] LABS: Blood Gas Specimen Type VEN; VBG BASE EXCESS 6 mmol/L (-1.0-3.5); VBG Bicarbonate 31 mmol/L (22-26); VBG PO2 32 mmHg (25-40); VBG SO2 60 % (50-70); VBG TCO2 32 mmol/L (23-33); VBG pCO2 49.1 mmHg (41-51)
--- NOTE | 2021-01-04 10:36 | CRPHASE1_ITS ---
Patient Communication Former Patient:: Phase II PHII Cardiac Rehab Discussed with Patient:: Yes Guide to Cardiac Rehab Given to Patient:: Yes Cardiac Rehab Facility Choice List Given to Patient:: Yes Choice Program [facility] CR PHII:: Communication Given to CR Rehab Care Assistant:: Guicho Hoyos Phase II Cardiac Rehab:: Yes Sessions:: 36 sessions - 3 days/wk, 12 weeks Cardiac Rehabilitation Info Cardiac Rehabilitation Program Information: Cardiac Rehabilitation is important for patients like you who are recovering from a heart problem. Cardiac rehabilitation programs are recognized as integral to the continued care of the patient with coronary heart disease. The cardiac rehabilitation program is designed to optimize a patient's physical, psychological, and social functioning. Health child care associate work in cardiac rehabilitation programs and assist you with getting the treatments you need to get stronger and healthier - like exercise, healthy eating habits, and medications. Cardiac rehabilitation has been show to help people with heart problems live longer and have better life enjoyment than people who do not go to cardiac rehabilitation. Please contact the Cardiac Rehabilitation Program at [facility] at in two weeks if you have not heard from them.
--- NOTE | 2021-01-04 10:37 | CRPH1.INST_ITS ---
General Education CAD and cardiac anatomy and function:: Patient communicates acknowledgment, Family communicates acknowledgment Explanation of diagnoses and procedures:: Patient communicates acknowledgment, Family communicates acknowledgment Sign/Symptoms of AL:: Patient communicates acknowledgment, Family communicates acknowledgment Antiplatelet therapy: Patient communicates acknowledgment, Family communicates acknowledgment Proper use of NTG-SL: Patient communicates acknowledgment, Family communicates acknowledgment Emergency procedures and activation of EMS: Patient communicates acknowledgment, Family communicates acknowledgment Compliance of all prescribed medications: Patient communicates acknowledgment, Family communicates acknowledgment Smoking Patient Nicotine/Smoking Risk Factors Are:: Never smoked Nicotine/Smoking Response Code:: Patient communicates acknowledgment, Family communicates acknowledgment Dyslipidemia Patient Dyslipidemia Risk Factors Are:: Total Cholesterol, Triglycerides, HDL, LDL Recommendations Include:: Lipid profile not available Dyslipidemia Response Code:: Patient communicates acknowledgment, Family communicates acknowledgment Overweight/Obesity Patient Overweight/Obesity Risk Factors Are:: Obesity - > or = 30 Recommendations Include:: Weight loss of 5-10%, Reduced calorie diet, Exercise 5-7 times/week Overweight/Obesity:: Patient communicates acknowledgment, Family communicates acknowledgment Hypertension Recommendations Include:: BP <130/80 if diabetic, DASH dietary guidelines, Decrease/maintain normal body weight Hypertension:: Patient communicates acknowledgment, Family communicates acknowledgment Heart Disease Patient Heart Disease Risk Factors Are:: Previous cardiac event Recommendations Include:: Educated family members of their risk, Educated family members of importance of prevention of heart disease Heart Disease Response Code:: Patient communicates acknowledgment, Family communicates acknowledgment Diabetes Patient Diabetes Risk Factors Are:: Elevated blood sugars Recommendations Include:: Maintain fasting blood sugars 70-110 md/dL, Maintain HgbA1c of 6% or less, Monitor blood sugar as prescribed, Diabetic dietary guidelines, Decrease/maintain body weight Diabetes:: Patient communicates acknowledgment, Family communicates ack nowledgment Sedentary Patient Sedentary Risk Factors Are:: Lack of regular exercise Recommendations Include:: Aerobic exercise 5-7 times/week for 20-30 minutes continuously, Benefits of regular exercise, Discussed home walking program, Monitored Outpatient Cardiac Rehab Sedentary Response Code:: Patient communicates acknowledgment, Family communicates acknowledgment Stress Recommendations Include:: Identification of stressors, and assessment of coping skills, Stress management techniques Stress Response Code:: Patient communicates acknowledgment, Family communicates acknowledgment
--- NOTE | 2021-01-04 11:00 | EKG12_ITS ---
Test Reason : AM EKG Blood Pressure : / mmHG Vent. Rate : 079 BPM Atrial Rate : 079 BPM P-R Int : 168 ms QRS Dur : 096 ms QT Int : 404 ms P-R-T Axes : -05 -34 044 degrees QTc Int : 463 ms Normal sinus rhythm Left axis deviation Abnormal ECG When compared with ECG of 04-JAN-2021 20:11, MANUAL COMPARISON REQUIRED, DATA IS UNCONFIRMED Confirmed by LINDA BRAY, GUICHO ([id number]), news videotape editor GIOVANNA REICH ([id number]) on 01/10/2021 9:56:35 AM Referred By: Guicho Hoyos Confirmed By:GUICHO HOYOS MD
--- NOTE | 2021-01-04 11:01 | CL.I_ITS ---
Patient Name: HALEIGH FISHER Study Date: 01/04/2021 Performing: Belkis Cole MD Ht: 61.02 inches 155 cm : 1940 Wt: 160.94 lbs 73 kg Age: 80 Gender: female BSA: 1.72 PROCEDURE(S) PERFORMED [id number] W OR WO PTCA, SINGLE CORONARY ARTERY CLINICAL PROFILE AND CO-MORBIDITIES Indications: Worsening Angina Heart Failure: None Stress/Imaging Stress/Image Study Performed: No CAD Presentations: Unstable angina. CONCLUSIONS Successful NICO to ostial LCx RECOMMENDATIONS DESCRIPTION OF PROCEDURE The patient arrived to the procedure lab. The risks and benefits of the procedure as well as a full d escription of our services here and current unavailability of surgical backup were fully explained to the patient and/or their significant other prior to the catheterization. The Timeout was completed, verifying the correct patient and procedure. The patient's procedural site was prepped and draped in the usual fashion. Local anesthetic was given subcutaneously to right groin region with Lidocaine 2% Using a modified Seldinger technique,arterial access was obtained via the right femoral artery, a 5Fr sheath was inserted.Venous access was obtained via the right femoral vein, a 7Fr sheath was inserted . A 7Fr thermal dilution catheter was inserted and right heart pressures were recorded, it was then a dvanced to PA position for cardiac outputs. Thermal dilution cardiac outputs were then recorded. O2 s aturations were then obtained. The Thermal dilution catheter was then removed. Left Coronary Artery selective angiography was performed in multiple views using a 5 Fr. JL4 catheter. Rig ht Coronary Artery selective angiography was then performed in multiple views using a 5 Fr. 3DRC ([facility]) catheter. radial artery graft to the DIAG selective angiography was performed in multiple vie ws using a 5 Fr. 3DRC (Kareem) catheter. Left internal mammary artery graft to the LAD selective an giography was performed in multiple views using a 5 Fr. 3DRC (Kareem) catheter. Left Ventriculograp hy was performed in DUKES projection using a 5 Fr. Pigtail catheter. LV to AO pullback pressures were t hen recorded.The images were reviewed and options discussed. A decision was then made to proceed with an Intervention, IVUS or other adjunct procedure. xb 3.5 Guide catheter was inserted and engaged into the LCA. whisper Guide wire was advanced to t he Circumflex. emerge 1.2 x 8 Balloon catheter was advanced across lesion in the circumflex, ostial. PTCA balloon inflated at 18 atms for 18 secs. PTCA balloon inflated at 18 atms for 12 secs. PTCA ball oon inflated at 18 atms for 8 secs. Angiogram performed post balloon dilatation. PTCA balloon inflate d at 18 atms for 11 secs. emerge 2.25 x 12 Balloon catheter was advanced across lesion in the circumf satya, ostial. PTCA balloon inflated at 10 atms for 25 secs. PTCA balloon inflated at 14 atms for 26 se cs. Angiogram performed post balloon dilatation. osiro 2.5 x 9 Drug Eluting stent was advanced across the lesion in the circumflex, ostial. Angiogram performed post stent deployment. nc emerge 2.75 x 8 Balloon catheter was inserted post stent. Angiogram performed post balloon dilatation. Contrast was i njected through the sheath and the Right Iliac and Femoral artery were assessed for possible closure device. The arterial sheath was pulled and a Starclose closure device was deployed for hemostasis INTERVENTION INFORMATION LESION SITE: Circumflex (Ostial) Lesion Complexity: High/C, lesion at bifurcation: Yes, thrombus present: No, lesion length: 6 mm, cul prit lesion: Yes, Previously treated lesion: No, chronic total occlusion: Yes Pre Stenosis: 100 % Pre intervention WANG flow: 2 PROCEDURE: Drug Eluting Stent with pre and post dilatation Post Stenosis: 0 % Post intervention WANG flow: 3 Lesion Devices: Cardinal 6 Fr XB3.5 100cm Guide Catheter Staton .014 HT Whisper MS Straight 190cm Amauri Sci EMERGE MR 1.20x08 BALLOON Amauri Sci EMERGE MR 2.25x12 BALLOON Biotronik Orsiro MR NICO 2.5x9 Amauri Sci NC EMERGE MR 2.75x08 BALLOON COMPLICATIONS No Complications PROCEDURE MEDICATIONS Versed 1 mg IV Versed 1 mg IV Benadryl 25 mg IV 01/04/2021 07:52:09 Brilinta 180 mg PO @ 01/04/2021 08:32:00 Heparin 6000 unit(s) IV 01/04/2021 09:03:10 Solu-cortef 100 mg IV 01/04/2021 07:51:46 SUMMARY OF HEMODYNAMIC DATA Time AIR REST ECG 07:15:55 RA 13/17 (15) SV 08:08:40 RV 76/3, 14 08:10:06 PW /33 (27) PV 08:11:06 PA 68/ (43) PA 08:11:30 PA 70/24 (44) 08:14:43 PW 29/43 (28) 08:14:55 RV 70/25, 31 08:15:05 RA (14) 08:15:31 AO 134/66 (94) SA 08:17:34 LV 151/11, 19 08:26:12 LV 145/10, 18 08:26:18 LV 134/10, 20 08:27:24 LV 139/14, 27 08:27:31 LVp 145/12, 25 08:27:37 AOp 135/67 (95) 08:27:42 Type SV CO (l/m) CI (l/m/ HR Time AIR REST Thermal 48.80 3.61 2.10 74 07:15:55 Dami 68.80 5.09 2.96 74 07:15:55 Label % O2 Pres/Loc Time AIR REST AO 92 PV 08:16:52 SVC 64 SV 08:16:59 PA 60 PA 08:17:08 Signed By Belkis Cole MD On 01/04/2021 11:00:59 Belkis Cole MD
[2021-01-04 12:31] LABS: Bedside Glucose 231 mg/dL (70-110)
--- NOTE | 2021-01-04 14:45 | CL.D_ITS ---
Patient Name: HALEIGH FISHER Study Date: 01/04/2021 Performing: Guicho Hoyos MD Ht: 61.02 inches 155 cm : 1940 Wt: 160.94 lbs 73 kg Age: 80 Gender: female BSA: 1.72 PROCEDURE(S) PERFORMED QY07-UUL/LHC/COR/LV NP57-XOU W OR WO PTCA, SINGLE CORONARY ARTERY CLINICAL PROFILE AND INDICATIONS Indications: Worsening Angina Heart Failure: None Stress/Imaging Stress/Image Study Performed: No CAD Presentations: Unstable angina. CONCLUSIONS Patent MAACRIO to the LAD, patent radial to the diagonal vessel, severe stenosis noted of the ostial cir cumflex artery. Preserved left ventricular systolic function noted Moderately severe pulmonary hypertension, mild aortic stenosis and moderate mitral regurgitation RECOMMENDATIONS We will consider PCI to the ostial circumflex artery and treat aggressively for the mitral regurgitat ion and mitral calcification. DESCRIPTION OF PROCEDURE The patient arrived to the procedure lab. The risks and benefits of the procedure as well as a full d escription of our services here and current unavailability of surgical backup were fully explained to the patient and/or their significant other prior to the catheterization. The Timeout was completed, verifying the correct patient and procedure. The patient's procedural site was prepped and draped in the usual fashion. Local anesthetic was given subcutaneously to right groin region with Lidocaine 2%. Using a modified Seldinger technique, arterial access was obtained via the right femoral artery, a 5 Fr sheath was inserted. Venous access was obtained via the right femoral vein, a 7Fr sheath was inser asuncion. A 7Fr thermal dilution catheter was inserted and right heart pressures were recorded, it was the n advanced to PA position for cardiac outputs. Thermal dilution cardiac outputs were then recorded. O 2 saturations were then obtained. The Thermal dilution catheter was then removed. Left Coronary Artery selective angiography was performed in multiple views using a 5 Fr. JL4 catheter. Rig ht Coronary Artery selective angiography was then performed in multiple views using a 5 Fr. 3DRC ([facility]) catheter. radial artery graft to the DIAG selective angiography was performed in multiple vie ws using a 5 Fr. 3DRC (Kareem) catheter. Left internal mammary artery graft to the LAD selective an giography was performed in multiple views using a 5 Fr. 3DRC (Kareem) catheter. Left Ventriculograp hy was performed in DUKES projection using a 5 Fr. Pigtail catheter. LV to AO pullback pressures were t hen recorded.Contrast was injected through the sheath and the Right Iliac and Femoral artery were ass essed for possible closure device.The arterial sheath was pulled and a Starclose closure device was d eployed for hemostasis CORONARY ANGIOGRAPHY DOMINANCE: Left Dominant LEFT HEART ASSESSMENT Left Ventricular Ejection Fraction: by LV Gram 60 % Normal LV wall motion RIGHT HEART ASSESSMENT Thermal CO: 3.61 Thermal CI: 2.1 Dami CO: 5.09 Dami CI: 2.96 PW: / 27 PA: 68/27 43 RV: 76/3 14 RA: 15 PVR: 287 SVR: 1241 Right Heart pressures - elevated LEFT MAIN: Mild calcification LEFT ANTERIOR DESCENDING ARTERY: OSTIAL LAD: is occluded CIRCUMFLEX ARTERY: OSTIAL CIRC: 80 % Stenosis RIGHT CORONARY ARTERY: Moderate luminal irregularities up to 50% GRAFTS: MACARIO graft to the Mid LAD is patent Radial graft to the 1st Diagonal is patent VALVE FINDINGS: Aortic Valve Stenosis - mild Mitral Valve Calcification Moderate Mitral Valve Insufficiency - Grade 3 COMPLICATIONS No Complications PROCEDURE MEDICATIONS Versed 1 mg IV Versed 1 mg IV Benadryl 25 mg IV 01/04/2021 07:52:09 Brilinta 180 mg PO @ 01/04/2021 08:32:00 Heparin 6000 unit(s) IV 01/04/2021 09:03:10 Solu-cortef 100 mg IV 01/04/2021 07:51:46 SUMMARY OF HEMODYNAMIC DATA Time AIR REST ECG 07:15:55 RA (15) SV 08:08:40 RV 76/3, 14 08:10:06 PW 26/33 (27) PV 08:11:06 PA 68/27 (43) PA 08:11:30 PA 70/24 (44) 08:14:43 PW 29/43 (28) 08:14:55 RV 70/25, 31 08:15:05 RA (14) 08:15:31 AO 134/66 (94) SA 08:17:34 LV 151/11, 19 08:26:12 LV 145/10, 18 08:26:18 LV 134/10, 20 08:27:24 LV 139/14, 27 08:27:31 LVp 145/12, 25 08:27:37 AOp 135/67 (95) 08:27:42 Type SV CO (l/m) CI (l/m/ HR Time AIR REST Thermal 48.80 3.61 2.10 74 07:15:55 Dami 68.80 5.09 2.96 74 07:15:55 Label % O2 Pres/Loc Time AIR REST AO 92 PV 08:16:52 SVC 64 SV 08:16:59 PA 60 PA 08:17:08 Signed By Guicho Hoyos MD On 01/04/2021 2:44:43 PM Guicho Hoyos MD
[2021-01-04 15:45] VITALS: BP 142/76; PULSE 93; RESP 18; TEMP 37; O2SAT 95; BMI 30.6
--- NOTE | 2021-01-04 15:51 | PCS.PANDOC ---
PANDEMIC DOCUMENTATION INITIATED: Date: 01/04/2021 Time: 3118
[2021-01-04 16:00] VITALS: PULSE 76; O2SAT 95
[2021-01-04 16:05] LABS: Bedside Glucose 323 mg/dL (70-110)
[2021-01-04] MEDS: Insulin Lispro 100 UNIT/ML INSULN.PEN 15 UNIT SC (17:15)
[2021-01-04 19:00] VITALS: PULSE 76
[2021-01-04 21:21] VITALS: BP 135/74; PULSE 74; RESP 16; TEMP 37.1; O2SAT 99
[2021-01-04] MEDS: TICAGRELOR 90 MG TABLET PO (21:28)
[2021-01-04] MEDS: Atorvastatin Calcium 40 MG Tablet PO (21:28)
[2021-01-04 23:26] LABS: Bedside Glucose 168 mg/dL (70-110)
[2021-01-05] VITALS (7 sets, daily range): BP systolic 136–139; BP diastolic 64–83; PULSE 74–83; RESP 18; TEMP 36.8–36.9; O2SAT 95–98
[2021-01-05 05:56] LABS: Hematocrit 38.6 % (37-47); Hemoglobin 12.8 g/dL (12.0-15.0); Mean Corp Hgb Conc 33.2 g/dL (32-36); Mean Corpuscular Hgb 32.1 pg (27.0-32.0); Mean Corpuscular Volume 96.7 fL (81-99); Mean Platelet Vol. 10.1 fl (6.2-12.0); Platelet Count 259 K/mm3 (150-450); RBC Distribution Width SD 46.5 fl (35.1-43.9); Red Blood Count 3.99 M/mm3 (4.2-5.4); White Blood Count 12.8 K/mm3 (4.4-11.0)
[2021-01-05 06:33] LABS: ALB/GLOB Ratio 0.9 RATIO (0.9-2.4); AST(SGOT) 29 U/L (15-37); Alanine Aminotransfer ALT/SGPT 28 U/L (13-56); Albumin, Serum 3.3 g/dL (3.2-5.0); Alkaline Phosphatase 64 U/L (45-117); Anion Gap 8 (5-15); BUN 16 mg/dL (7-18); BUN/Creat Ratio 18.9 RATIO (10-20); Calcium,Total 9.2 mg/dL (8.5-10.1); Chloride 104 mmol/L (98-107); Creatinine, Serum 0.85 mg/dL (0.55-1.02); EST Glomerular Filtration Rate 69 mL/min (>60); Est Glom Filt Rate - Afr Amer 83 mL/min (>60); Estimated Creatinine Clearance 41.16 ml/min; Globulin 3.5 g/dL (2.2-4.2); Glucose 132 mg/dL (74-106); Potassium 3.4 mmol/L (3.5-5.1); Protein, Total 6.8 g/dL (6.4-8.2); Sodium Level 140 mmol/L (136-145)
--- NOTE | 2021-01-05 08:08 | PN.CARD_ITS ---
Subjective Subjective Patient seen and evaluated. Appears to be doing quite well no complaints at this time Objective Data Vital Signs: Vital Signs Temp Pulse Resp BP Pulse Ox 98.4 F 75 18 137/83 H 98 01/05/21 06:10 01/05/21 07:00 01/05/21 06:10 01/05/21 06:10 01/05/21 06:10 Oxygen Delivery Method Room Air Weight: 154 lb 1.65 oz Body Mass Index (BMI) 30.6 Intake & Output: Intake and Output for Last 24 Hours 01/03/21 01/04/21 01/05/21 23:59 23:59 23:59 Intake Total 600 / 600 400 / 400 Balance 600 / 600 400 / 400 Lab / Micro Data Result Diagrams: 01/05/21 05:20 01/05/21 05:20 Labs: Laboratory Results - last 24 hr 01/04/21 12:19: POC Glucose 231 H 01/04/21 16:01: POC Glucose 323 H 01/04/21 21:25: POC Glucose 168 H 01/05/21 05:20: WBC 12.8 H, RBC 3.99 L, Hgb 12.8, Hct 38.6, MCV 96.7, MCH 32.1 H , MCHC 33.2, RDW Std Deviation 46.5 H, RDW Coeff of Rafi 13.0, Plt Count 259, MPV 10.1 01/05/21 05:20: Sodium 140, Potassium 3.4 L, Chloride 104, Carbon Dioxide 28.0, Anion Gap 8, BUN 16, Creatinine 0.85, Estim Creat Clear Calc 41.16, Est GFR (MDRD) Af Amer 83, Est GFR (MDRD) Non-Af 69, BUN/Creatinine Ratio 18.9, Glucose 132 H, Calcium 9.2, Total Bilirubin 1.80 H, AST 29, ALT 28, Alkaline Phosphatase 64, Total Protein 6.8, Albumin 3.3, Globulin 3.5, Albumin/Globulin Ratio 0.9 ABG Data ABG results: ABG 01/04/21 01/04/21 01/04/21 08:07 08:10 08:12 Specimen Type ART COLLINS COLLINS pH 7.43 Bicarbonate Actual 28.6 H Total CO2 30 Base Excess 4 H O2 Saturation 92 L ABG pCO2 43.0 ABG pO2 63 L VBG pH 7.40 7.40 VBG pO2 34 32 VBG HCO3 28 H 31 H VBG Total CO2 30 32 VBG O2 Sat (Calc) 64 60 VBG Base Excess 4 H 6 H POC Mix VBG pCO2 Pt Tmp 46.3 49.1 Cardiology Labs/Tests 01/04/21 08:07: pH 7.43, Bicarbonate Actual 28.6 H, Base Excess 4 H, O2 Saturati on 92 L, ABG pCO2 43.0, ABG pO2 63 L 01/04/21 08:10: VBG pH 7.40, VBG pO2 34, VBG HCO3 28 H, VBG O2 Sat (Calc) 64, VBG Base Excess 4 H 01/04/21 08:12: VBG pH 7.40, VBG pO2 32, VBG HCO3 31 H, VBG O2 Sat (Calc) 60, VBG Base Excess 6 H 01/05/21 05:20: WBC 12.8 H, RBC 3.99 L, Hgb 12.8, Hct 38.6, MCV 96.7, MCH 32.1 H , MCHC 33.2, Plt Count 259, MPV 10.1 01/05/21 05:20: Sodium 140, Potassium 3.4 L, Chloride 104, Carbon Dioxide 28.0, Anion Gap 8, BUN 16, Creatinine 0.85, Est GFR (MDRD) Af Amer 83, Est GFR (MDRD) Non-Af 69, BUN/Creatinine Ratio 18.9, Glucose 132 H, Calcium 9.2, Total Bilirubin 1.80 H Rhythm: EKG: ECHO: Stress Test: Cardiac Cath: PCI: CT Surgery: Holter monitor: EPS: PPM: CXR: Chest CT Scan: Physical Exam Const alert, oriented x3 and no apparent distress General Appearance: cooperative HEENT hearing grossly normal bilaterally Head and Scalp: atraumatic Eyes EOMs intact bilaterally Neck General: normal visual inspection Chest inspection of chest normal and palpation of chest normal Resp normal respiratory effort Auscultation: clear to auscultation bilaterally Cardio regular rate, regular rhythm, S1 normal heart sound and S2 normal heart sound Jugular Venous Distention: JVD GI normal to inspection, nondistended, normoactive bowel sounds Extremity normal capillary refill and no pedal edema Peripheral Pulses: Yes pulses 2+ throughout and femoral pulses present Skin no rashes or lesions noted Neuro oriented x3 and CN's II-XII intact bilaterally Psych Appearance: grossly normal and appropriate Assessment & Plan Assessment/Plan (1) History of coronary artery stent placement: PLAN: Patient is status post angioplasty and stenting of the ostial left circumflex artery. Patient is doing well this morning. Will discharge home for outpatient follow-up. Valvular disease will be followed up as outpatient.
--- NOTE | 2021-01-05 08:11 | PCM.DC ---
Discharge Instructions Diet Discharge Diet: Low fat / Low cholesterol and 2000 Calorie Control Diet Dressing / Incision Call your doctor if your incision/area has: Continuous Slow Oozing, Increased Pain/ Swelling, Increased Redness and Swelling at the incision site Call your doctor if you observe: Numbness or Tingling Follow Up Care When: Follow-up in heart group office Test Results: Test results from this visit will be discussed in further detail at your follow-up appointment, if applicable. Discharge Plan Admission Attending Provider: Guicho Hoyos Primary Care Provider: Lindy Can Discharge Orders/Prescriptions Prescriptions: New Brilinta 90 mg Tablet 90 mg PO BID Qty: 60 RF: 4 Continued aspirin [Adult Aspirin Regimen] 81 mg tablet,delayed release (DR/EC) 81 mg PO DAILY RF: 0 citalopram 10 mg tablet 10 mg PO DAILY RF: 0 metoprolol succinate 100 mg tablet extended release 24 hr 100 mg PO DAILY RF: 0 coenzyme Q10 [Co Q-10] 100 mg capsule 100 mg PO DAILY RF: 0 ascorbate calcium (vitamin C) 500 mg tablet 500 mg PO DAILY RF: 0 atorvastatin 40 mg tablet 40 mg PO QHS RF: 0 furosemide [Lasix] 40 mg tablet 40 mg PO DAILY Qty: 60 RF: 3 losartan 50 MG tablet 50 mg PO DAILY RF: 0 cholecalciferol (vitamin D3) 1,000 UNIT capsule 2,000 units PO DAILY RF: 0 insulin glargine 100 UNITS/ML insulin pen 30 units SC QHS RF: 0 insulin lispro 100 unit/mL solution 15 unit SC TIDCM RF: 0 nitroglycerin 0.4 MG tablet, sublingual 0.4 mg sublingual TID PRN PRN (Reason: Angina) RF: 0 Referrals / Follow Up: Lindy Can MD [Primary Care Provider] - Jem Sgeura COMPUTER ANALYST, COMPUTER ANALYST-C [Nurse Practitioner] - 01/26/21 11:00 am Disposition Discharge Orders: Discharge Patient (Routine); Ordered 01/05/21 Ordered By: Dr. Guicho Hoyos
[2021-01-05] MEDS: Aspirin E.C. 81 MG Tablet PO (08:36)
[2021-01-05 09:05] LABS: Bedside Glucose 174 mg/dL (70-110)
--- NOTE | 2021-01-05 09:43 | CASEMGMT ---
Pt to be sent home on Brilinta at discharge and med e-scribed to [facility]. Call to Alek, pharmacist, and he states pt's co-pay is $47. Pt updated and provided Brilinta month free card. Pt voices no further questions/concerns/needs. Zoran CRUZ CM
--- NOTE | 2021-01-05 10:00 | EKG12_ITS ---
Test Reason : POST CATH Blood Pressure : / mmHG Vent. Rate : 076 BPM Atrial Rate : 076 BPM P-R Int : 168 ms QRS Dur : 094 ms QT Int : 402 ms P-R-T Axes : 052 -31 043 degrees QTc Int : 452 ms Normal sinus rhythm Left axis deviation Abnormal ECG When compared with ECG of 04-JAN-2021 09:55, MANUAL COMPARISON REQUIRED, DATA IS UNCONFIRMED Confirmed by LINDA BRAY, GUICHO ([id number]), legal editor GIOVANNA REICH ([id number]) on 01/10/2021 9:58:39 AM Referred By: Guicho Hoyos Confirmed By:GUICHO HOYOS MD
== END 2021-01-05 08:10 ==
LOC: CLSP 15:03 → PCU 01-05 07:59
PROVIDERS: Specialist; PCP Internal Medicine; Referring Provider Internal Medicine Cardiovascular Disease; Visit Provider Internal Medicine Cardiovascular Disease
DX: R07.89 Other chest pain (principal); I25.10 Atherosclerotic heart disease of native coronary artery without angina pectoris; I35.0 Nonrheumatic aortic (valve) stenosis; I10 Essential (primary) hypertension; E78.5 Hyperlipidemia, unspecified; E78.00 Pure hypercholesterolemia, unspecified; E11.9 Type 2 diabetes mellitus without complications; K21.9 Gastro-esophageal reflux disease without esophagitis; Z95.1 Presence of aortocoronary bypass graft; Z82.49 Family history of ischemic heart disease and other diseases of the circulatory system; Z87.891 Personal history of nicotine dependence
CPT/HCPCS: 36415; 80053; 82803; 82962; 85027; 92928; 93005; 93461; 99152; 99153; C1874; J7040; Q9967; C1725; C1751; C1760; C1769; C1887; C1894; C9600

== ENCOUNTER → 2021-01-17 08:49 | Outpatient (CLI) | payer MEDICARE, SELFPAY ==
--- NOTE | 2021-01-17 08:57 | PCM.CR.ITP ---
Diagnosis - General Information Admitting Diagnosis: S/P PCI W/CORONARY STENT PLACEMENT Personal Learning Style:: Audio/Visual, Written Barriers to Learning: Vision Impairment Stage of change r/t lifestyle modifications:: Action Gave educational material for:: Treating Heart Disease, Emotions & Heart Disease, Stress Management & Relaxation, Sleep Disorders & Heart Disease, How The Heart Works, What it means to have Heart Disease, How Coronary Artery Disease is Diagnosed, Heart Procedures, What Heart Medications Do, Risk Factors & Modifications, Living an Active Life, Nutrition - Education/Goals Individual Counseling: Initial Assessment: Abnormal Cholesterol Levels, High Blood Pressure, Diabetes, A. Fasting Blood Sugar >100 - 132, A1c 7.8, C. High Triglycerides >150 - 165 Cardiac Rehabilitation Goals: 1. Maintain the individual as the primary focus of care. 2. To improve the patient's quality of life. 3. Identification of cardiac risk factors and provide cardiac risk factor management. 4. Enhance the psychosocial status of the patient. 5. Reconditioning enough to allow the patient to resume customary activities. 6. Control symptoms of cardiac disease Personal Goals: Initial Assessment: Improve management of stress and emotions, Improve energy level, Participate in home exercise program, Get back to work, or to resume activities faster, Improve knowledge of cardiac disease, Improve muscle strength and endurance, Improve diet and eating habits (eat healthier) Scale for measuring improvement of personal goals: Enter appropriate number in Comments. 2 = Unchanged. 3 = Slightly Better. 4 = Moderate Improvement. 5 = Met my Goal - Diagnosis & Disease Process Outcomes/Goals: Pt IDs own risk factors & lifestyle modifications by Session 10, Verbalizes symptoms of angina & response by session 3., Pt independently manages Plan/Interventions: Assist Pt to ID & engage in lifestyle modification to reduce CVD risk, Instruct on individual risk factors, Review symptoms of angina & emergency actions, Review secondary diagnosis & identify educational needs. - Safety Referral to Physical Therapy: No Referral to [facility] Case Management: No Fall Risk Assessed:: Yes Assistive Devices:: None Exercise - Initial Assessment - Visit Date of Eval: 01/17/21 Session #:: 0 - Pre-cardiac rehab evaluation Mets: Pre-: >5 METS for 30 minutes by discharge - Physician Prescribed Exercise Modalities: Treadmill, Airdyne, NuStep Frequency: 3x/week for 12 weeks [36 sessions] Intensity: 60-80% of age predicted maximum heart rate reserve Current METSs:: 3.0 Target Heart Rate:: 93-121 Resting Blood Pressure: 113/59 EKG Type: sinus rhythm - Outcomes & Goals Goals:: Verbalizes understanding of THR, RPE & goal METS by session 6, Documents in home exercise log/reports 30 min aerobic 5 day/wk by DC, Demonstrates accurate pulse taking by DC - Intervention & Plan Exercise Program Goals: Instruct on personal THR & RPE, Instruct on MET level & personal MET goal, Show patient to take own pulse /validate performance until accurate, Instruct on home exercise - Physical Activity Home Exercise Physical Activity - Home Exercise: Safe Exercise, Warm-up, Self-monitoring, Cool-Down, Home Exercise > 30 min Daily, Sitting Time <3 hours/daily - Outcomes & Goals Outcomes/Goals: Demonstrates correct Warm-up/exercise Cool-Down (S3) if = 2.5 METs, Verbalizes symptoms of exercise intolerance by Session 3 (S3), Demonstrate safe equipment use (S3) & follows exercise prescrition (6) - Intervention & Plan Plan/Intervention: Instruct warm-up & cool-down if exercising at > 2 METs, Instruct on symptoms of exercise intolerance & actions to take, Instruct & monitor on saf, Assess intial functional capacity & safety risk Nutrition - Initial Assessment - Program Goals Nutrition Program Goals: LDL <100 optimal. 100 - 129 Near optimal. 130 - 159 Borderline High. 160 - 189 High. Total Cholesterol <200 desirable. 200 - 239 Borderline High. >/= 240 High. HDL < 40 Low >/=60 High. Triglycerides <150 desirable. <199 optimal. VlDL 5 - 40. HgbA1C <7%. BMI <25 Patient has diagnosis of Hyperlipidemia (ICD E78)?: Yes - Visit Date of Assessment:: 01/17/21 Session #:: 0 - pre-cardiac rehab evaluation - Cholesterol/Lipids Triglycerides (mg/dL): 165 Total Cholesterol (mg/dL): 170 LDL Cholesterol (mg/dL): 85 HDL Cholesterol (mg/dL): 52 Determine presence & major risk factors that modify LDL goal: Hypertension or hypertensive medication, Family history of premature CHD in Male < 55 years: female <65 yearsFa, Age men > 45 years; women >/= 55 years Outcomes/Goals: Pt IDs own risk factors & lifestyle modifications by Session 10, Verbalizes symptoms of angina & response by session 3., Pt independently manages Intervention/Plan: Instruct on personal lipid levels & lipid goals/NCEP guidelines, Instruct on cholesterol Referral to dietitian:: Yes - Medical Nutrition Therapy - Diabetes (Other Core Measures) Diabetes Type: Diagnosis Type II ICD-10 E11 Fasting blood glucose:: 132 Hgb A1C (4.2 - 6.3): 7.8 Insulin dependent injection/pump?: Yes Non-Insulin Dependent?: Yes Do you monitor your blood sugar at home?: Yes Referral to Diabetic Clinic:: Yes - INT DSMT & MNT Outcomes/Goals:: Able to state symptoms of, Able to state, Able to state Intervention/Plan:: Instruct on, Refer to, Instruct on - Weight Mgt (Other Care) Not Applicable: Yes Height: 5 ft 1 in Weight:: 162 lb BMI: 30.6 Diagnosis Overweight/Obesity BMI> 30% ICD-10 E66: No Diagnosis High BMI/Morbid Obesity BMI> 35% ICD-10 Z68: No Outcomes/Goals: Pt sets, maintains & shows weight loss goal & trend during rehab Intervention/Plan: Instruct on ideal BMI & set weight loss goal w/patient, Assist pt to ID & incorporate diet changes for weight loss by S9, Encourage goal of using 250-300dcal per session for weight loss - Healthy Eating Habits Will attend diet classes:: Yes Outcomes/Goals:: Consume diet rich in vegs,fruits,whole grain/high fiber,fish,lean meat, Limit sat/trans fats,cholesterol & added salts & sugars Intervention/Plan:: Assess current eating habits - Education Gave educational materials for:: Signs & symptoms of hypoglycemia, Signs & symptoms of hyperglycemia, Relate diabetes to coronary artery disease, Healthy eating Nutrition - 30-Day Assessment Nutrition - 60-Day Assessment Nutrition - 90-Day Assessment Nutrition - Final Assessment Medical - Initial Assessment - Visit Date of Eval: 01/17/21 Session #:: 0 - pre-cardiac rehab evaluation - Medication Compliance Preventative Medication(s):: Aspirin, Ticagrelor/P2Y12 inhibitor, Statin/lipid, Beta nik H/O mental health issues: depression, anxiety, or addiction?: Yes Doesn?t believe in the benefits of treatment?: No Believes medications are unnecessary or harmful?: No Has a concern about medication side effects?: No Expresses concern over the cost of medications?: No Outcomes/Goals: Verbalizes medications,desired effect & common side effects @ DC, Pt self-reports following medication regimen, Keeps card in wallet w/medications listed by DC Interventions/plans: Instruct on medication effects & side effects, Review medication list w/patient every two weeks, Instruct importance of taking meds as ordered & assist problem solving - Tobacco Use Tobacco Use: Non-smoker - Hypertension Hypertension Diagnosis:: Hypertension ICD-10 I10 Resting Blood Pressure:: 113/59 [place] [employer] Hypertension Guidelines: [place] [employer] Hypertension Guidelines. Normal BP Less than 120/80. Elevated BP 120/80. Hypertension Stage 1: BP 130-139/80-89. Hypertesnion Stage 2: BP 140 or higher/90 or higher. Hypertension Crisis: BP higher than 180/120 Outcomes/Goals: Able to verbalize/achieve optimal blood pressure <130/80, Incorporates diet changes & exercise for blood pressure control by DC Interventions/plan: Instruct on optimal blood pressure, hypertension & medications, Instruct on effects of sodium, alcohol, stress, exercise &hypertension, Other additional plan/interventions - Tobacco Cessation Referral Smoking Cessation Referral:: No Education Schedule Given:: Yes Medical- 30-Day Assessment Medical- 60-Day Assessment Medical- 90-Day Assessment Medical - Final Assessment Psychosocial - Initial Assess - VIsit Date of Eval: 01/17/21 Session #:: 0 - pre-cardiac rehab evaluation Not Applicable: No History of previous Mental disease:: Yes History of Emotional Disorders: Depression Self-reported stressors: Family, Recent Illness - Patient just lost spouse in the last two weeks and then this PCI event, dealing with closure and loss of spouse. - Psychosocial Test Tool Used:: [employer] QOL Cardiac, PHQ-9 Questionnaire phq-9 Severity: Severity. 1-4 Minimal Depression. 5-9 Mild Depression. 10-14 Moderate Depression. 15-19 Moderately Sever Depression. 20-27 Severe Depression. Rule: - Referral to Behavioral Health PS - Interventions: Yes Attend Stress Management Classes, No Referral to Behavioral Health if PHQ-9 score >9:, No Referral to [facility], No Referral to Physician if PHQ-9 if score is 5-9: - Outcomes/Goals: See list Psychosocial Outcomes/Goals:: ID's personal stressors & 2 strategies to manage stress by discharge - Intervention/Plan: See List Interventions/Plan:: Assess stressors,coping strategies & signs of derpression on admission, Instruct/assist pt to develop coping & personal stress Mgt strategies, Instruct patient to recognize signs & symptoms of depression, Instruct patient to recog Psychosocial - 30-Day Assess Psychosocial - 60-Day Assess Psychosocial - 90-Day Assess Psychosocial - Final Assessmen Patient Health Questionnaire Initial Assessment 1. Little interest or pleasure in doing things: More than half the days 2. Feeling down, depressed, or hopeless: Several days 3. Trouble falling or staying asleep, or sleeping too much: Several days 4. Feeling tired or having little energy: Several days 5. Poor appetite or overeating: Several days 6. Feeling bad about yourself -- or that you are a failure or have let yourself or your family down: Not at all 7. Trouble concentrating on things, such as reading the newspaper or watching television: More than half the days 8. Moving or speaking so slowly that other people could have noticed. Or the opposite - being so fidgety or restless that you have been moving around a lot more than usual: Nearly every day 9. Thoughts that you would be better off , or of hurting yourself in some way: Several days How difficult have these problems made it for you to do your work, take care of things at home, or get along with other people?: Very difficult - 3 weeks ago. Total Score: 12 ABILIO-Q SV Test - Statements CAD is a disease of the arteries in the heart: False Examples of risk factors for heart disease: True Angina is chest pain or discomfort: True The benefits of resistance training include: True Eating more meat and dairy products: False Anti-platelet medications such as aspirin are important: True The only effective way to manage stress: False An exercise warm-up slowly increases heart rate: True Prepared, processed foods usually have high sodium: True Depression is common after a heart attack: True The statin medications lower cholesterol: True To control blood pressure, lower the amount of sodium: True If someone gets chest discomfort during walking: I Don't Know Transfats are partially hydrogenated vegetable oils: True Sleep apnea that is not treated increases the risk: I Don't Know To control cholesterol, one should become a vegetarian: I Don't Know Someone knows if he/she is exercising at the right level: True Diabetes cannot be prevented with exercise & health eating: False Stress is a large risk for heart attack: True A diet that can help lower blood pressure is rich in: True - Total Score Total Correct Responses: 17 Self-Efficacy Initial Assessment We would like to know how confident you are in doing certain activities. Please select your confidence level for:: Select your confidence level for the following using the scale 1-10 where 1 is not at all confident and 10 is totally confident. Your score is the average of all 6 responses. Fatigue: How confident are you that you can keep the fatigue caused by your disease from interfering with the things you want to do? Select Number: 6 Physical Discomfort or Pain: How confident are you that you can keep the physical discomfort or pain of your disease from interfering with the things you want to do? Select Number: 8 Emotional Distress: How confident are you that you can keep the emotional distress caused by your disease from interfering with the things you want to do? Select Number: 7 Other Symptoms or Health Problems: How confident are you that you can keep other symptoms or health problems from interfering with the things you want to do? Select Number: 8 Different Tasks and Activities: How confident are you that you can do the different tasks and activities needed to manage your health condition so as to reduce your need to see a doctor? Select Number: 9 Medication: How confident are you that you can do things other than just taking medication to reduce how much your illness affects your everyday life? Select Number: 9 Total Score:: 7 Nutrition Survey - Nutrition Survey Initial Have you lost >10 lbs over the past 2 months without trying?: Yes Are you following a special diet at home for diabetes, low fat, or low salt?: Yes Are you interested in meeting with a dietitian for help understanding your diet?: Yes Do you eat less than 3 meals a day?: Yes Do you eat fatty meats (dias, sausage, ribs, etc), fried foods, desserts, large amounts of salad dressings, margarine, butter, or cheese most days?: Yes Do you have food allergies? [Enter types in comment field]: No Do you eat in restaurants more than 3 times a week?: No Do you season food with salt, seasoning salt, or garlic salt?: No Do you used canned, boxed, frozen meals, or soups, seasoning packets?: Yes Total Score:: 6
--- NOTE | 2021-01-17 08:59 | CR.HP_ITS ---
CR - History & Physical - General Arrival date:: 01/17/21 Arrival time:: 08:55 Date of Referral:: 01/04/21 Date of CR Evaluation:: 01/17/21 Referring Physician: DR. GUICHO MCKEON Primary Diagnosis: PCI w/coronary stent - History of Present Cardiac Event Onset Date: Enter Onset Date of cardiac illnesses in Comment field below Coronary Artery Bypass Graft:: Yes - PTCA or coronary stenting:: Yes - 01/04/2021 Heart or Heart-Lung Transplant:: No Type of Symptoms:: tightness in the chest walking dog 4 times/daily, occasionally would feel heart fluttering, kept to myself. Finally went to see Dr. Mckeon and next week scheduled echo, stress etc and then heart cath. followed by lecture from Dr. Mckeon. Interventions with present event:: left heart cath resulted in PCI intervention and stent placement - Sleep Disorder Evaluation Hx of Sleep Apnea: Yes Do you snore loudly (louder than talking or can be heard through closed doors)?: Yes - on CPAP at night lost about 30 pounds and didnt seem to need it anymore Do you often feel tired/ fatigued/ sleepy during daytime?: Yes Has anyone observed you stop breathing during sleep?: Yes History of Hypertension (for STOP score): Yes STOP Results: Positive - Medications Home Medications: Ambulatory Orders Medication Instructions Recorded losartan 50 mg PO DAILY 02/04/13 cholecalciferol (vitamin D3) 2,000 units PO DAILY 03/27/13 insulin glargine 30 units SC QHS 03/27/13 nitroglycerin 0.4 mg SUBLINGUAL TID PRN PRN 04/16/17 insulin lispro 100 unit/mL 15 unit SC TIDCM 09/23/17 subcutaneous solution aspirin 81 mg tablet,delayed 81 mg PO DAILY 10/23/18 release ascorbate calcium (vitamin C) 500 500 mg PO DAILY 12/29/19 mg tablet citalopram 10 mg tablet 10 mg PO DAILY tab 12/29/19 coenzyme Q10 100 mg capsule 100 mg PO DAILY 12/29/19 metoprolol succinate 100 mg 100 mg PO DAILY tab 12/29/19 tablet,extended release 24 hr atorvastatin 40 mg tablet 40 mg PO QHS tab 12/27/20 furosemide 40 mg tablet 40 mg PO DAILY #60 tab 09/28/21 ticagrelor [Brilinta] 90 mg PO BID #60 tab 01/05/21 - Allergies Allergies/Adverse Reactions: Allergies lisinopril Adverse Reaction (Verified 12/27/20 08:45) COUGH Dbunhjn-Yfc-Ols Reductase Inhibitor Adverse Reaction (Verified 12/27/20 08:45) Diarrhea shellfish Allergy (Uncoded 12/27/20 08:45) lip swelling, diarrhea Advanced Directives - Advanced Directives 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 Living Will: Yes Advance Directives Information Provided: No Advance Directives on File: No DNR Order?:: No - MOLST See MOLST form: No Past Medical History - Covid-19 Screening Fever: No Unexplained muscle aches: No Current respiratory symptoms: No Upper respiratory infections symptoms: No Gastro-intestinal symptoms: No Bjq-Fwri-Yekcmm symptoms: No Has tested positive for COVID-19 in last 30 days: No Date of testin06/17/19 - Scheduled Sat01/20/2021 for the Fl[employer] booster vaccine Had contact w/person w/symptoms or Covid-19 (+) last 14 days: No Has High Risk Exposures ID'd by Health dept/Inf Control team: No 65 years or older:: Yes Lives in Assisted Living facility:: No Has a serious heart condition:: Yes Immunocompromised:: No Severely obese (Body Mass Index of 40 or higher):: No Diabetic:: Yes Has chronic kidney disease undergoing dialysis:: No Has liver disease:: No - Past Medical Illness Medical History: Past Medical History (Last Updated 01/03/21 @ 18:02 by Alexia Fleming) Atherosclerotic heart disease of [place] coronary artery without angina pectoris I25.10 Diabetes mellitus, type 2 E11.9 Elevated liver enzymes R74.8 Essential (primary) hypertension I10 Gastroesophageal reflux disease K21.9 Hyperlipidemia E78.5 Non-rheumatic aortic stenosis I35.0 Nonrheumatic mitral (valve) insufficiency I34.0 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, K83.1 Secondary pulmonary arterial hypertension I27.21 - Past Surgical History Surgical History: Past Surgical History (Last Updated 01/04/21 @ 16:06 by Alexia Fleming) H/O coronary artery bypass surgery Onset Date: 04/10/98 Z95.1 CABG x 2 MACARIO to LAD, Left Radial to D1 04/10/1998 History of coronary artery stent placement Onset Date: 01/04/21 Z95.5 PCI-NICO-Os LCx w/ 2.5 x 9 mm Orsiro Stent 01/04/21 History of left heart catheterization Onset Date: 04/28/07 Z98.890 History of right and left heart catheterization Onset Date: 01/04/21 Z98.890 Surgical History: appendectomy, coronary bypass surgery - Family History Summary Family History: Family History (Last Reviewed 12/27/20 @ 10:[address] Guicho Mckeon MD) Father Aortic aneurysm Hypertension CAD (coronary artery disease) Brother Hypertension Diabetes COPD (chronic obstructive pulmonary disease) Sister Hypertension Aortic aneurysm Daughter Hypertension Cancer Mother COPD (chronic obstructive pulmonary disease) CHF (congestive heart failure) Social History - Smoking History Smoking Status: Former smoker Years Smokin Hx Tobacco Use: No Hx Smoking Exposure: No - Alcohol Use Alcohol Usage: No - Substance Abuse Hx Substance Use: No - Occupation Occupation (List type of work in comments):: Retired - Hobbies, Recreation, Social Activities Hobbies: Sewing - quilting and painting, Walking - walks dog 4 times daily., Exercise - winter exercises Recreational Activities: I am able to engage in a few activities Social Environment - Status Marital Status: - Current Living Arrangements Living Environment:: Alone - Children How many children do you have?: 1 - daughter & one grandson Do any of your children live nearby?: Yes - Safety Do you feel safe in your surroundings?: Yes - Assistance Do you need any assistance at home?: no Review of Systems - Review of Systems Hints: Right click = Denies (Slash). Left click = Reports ([place]) Review of Present Symptoms: Reports: Shortness of Breath with Exertion - just a little still but has improved since had the stent placed, Dizziness/Lightheadedness - little bit finds if turns to quick of stands to fast., Fatigue, Appetite - Special Diet. Denies: Shortness of Breath at Rest, Angina, Heart Arrhythmia/Irregularities, Appetite - Normal - no have lost 14 pounds in the last 3 weeks since lost and lack of appetite., Sleep - Normal, Sexual Changes - Pain Is Patient Pain Free?: Yes Pain Location: none, back - lower back if stands to long or walks to much. Believes it may be a arthitis or stenosis but has not been officially diagnosed with it. Pain Level: 0/10 Risk Factor Assessment - Chief Complaint Chief Complaint: [address] Mckeon who presents to CR today following recent PCI intervention and stent placement. Patient has previously done CR in 1998 following CABG procedure, and has also done Phase III maintenance for years after. - Vital Signs Temperature: 97.8 F Respiratory Rate: 16 Pulse Ox: 98 Blood Pressure: 113/59 - Pulse Pulse Rate: 72 Pulse Rhythm: Regular - Hypertension Blood Pressure Sitting - Left Arm: 113/59 - Stress Stress: Recent - loss of about 3 weeks ago and recent cardiac issue and stent placed at around the same time. - Blood Cholesterol/Lipids Total Cholesterol (mg/dL) Goal = less than 200 mg/dL: 170 HDL Cholesterol (mg/dL) Goal = less than 40 mg/dL: 52 LDL Cholesterol (mg/dL) Goal = less than 70 mg/dL: 85 Triglycerides (mg/dL) Goal = less than 150 mg/dL: 165 - Diabetes Diabetic History: Type II, Medication Dependent, Insulin Dependent - Obesity Height: 5 ft 1 in Weight:: 162 lb Weight in Pounds: 162.0 lbs Weight Source: Standing Scale Body Mass Index (BMI): 30.6 Nutritional Referral for Obesity: No - Physical Inactivity Physical Inactivity: Reg Exercise 30 min/day - Risk Stratification Risk Guidelines: Lowest Risk: Risk Factor for Dyslipidemia, Risk Factor for Hypertension, Risk Factor for Sedentary Lifestyle, Moderate Risk: Risk Factor for Diabetes - Glucose 132, a1c 7.8, Risk Factor for Obesity - BMI 30.6, Highest Risk: Risk Factor for Depression - Family History Family History: Family History (Last Reviewed 12/27/20 @ 10:[address] Guicho Mckeon MD) Father Aortic aneurysm Hypertension CAD (coronary artery disease) Brother Hypertension Diabetes COPD (chronic obstructive pulmonary disease) Sister Hypertension Aortic aneurysm Daughter Hypertension Cancer Mother COPD (chronic obstructive pulmonary disease) CHF (congestive heart failure) Motivation - Motivation to Participate On a scale of 1 to 10, how prepared are you to commit to attending program?: 7 What do you see as barriers to successfully being able to complete the program?: none What do you see as the benefits of succesfully completing the program? In other words, what do you hope to get out of participating in the program?: healthier, getting back to what I thought was normal, more energy, change Are there issues you are dealing with that will interfere with completing the program?: recently lost 3 weeks ago. Do you have a spouse or signficant other, family or friends who will help support you to complete the program?: yes
[2021-01-17 09:20] VITALS: BP 113/59; BMI 30.6
[2021-01-17 09:42] VITALS: BP 113/59; PULSE 72; RESP 16; TEMP 36.6; O2SAT 98; BMI 30.6
== END ==
PROVIDERS: PCP Internal Medicine; Referring Provider Internal Medicine Cardiovascular Disease; Visit Provider Internal Medicine Cardiovascular Disease
DX: E78.5 Hyperlipidemia, unspecified (principal); I10 Essential (primary) hypertension; E11.9 Type 2 diabetes mellitus without complications; I25.10 Atherosclerotic heart disease of native coronary artery without angina pectoris

== ENCOUNTER 2021-01-27 13:00 | Outpatient (RCR) | payer MEDICARE, SELFPAY ==
[2021-01-17 09:20] VITALS: BMI 30.6
== END 2021-01-29 23:59 ==
LOC: CR 13:00
PROVIDERS: PCP Internal Medicine; Referring Provider Internal Medicine Cardiovascular Disease; Visit Provider Internal Medicine Cardiovascular Disease
DX: I25.10 Atherosclerotic heart disease of native coronary artery without angina pectoris (principal); I34.0 Nonrheumatic mitral (valve) insufficiency; I27.21 Secondary pulmonary arterial hypertension; I35.0 Nonrheumatic aortic (valve) stenosis; I10 Essential (primary) hypertension; E78.00 Pure hypercholesterolemia, unspecified; Z95.1 Presence of aortocoronary bypass graft; Z95.5 Presence of coronary angioplasty implant and graft
CPT/HCPCS: 93798

== ENCOUNTER 2021-02-27 13:00 | Outpatient (RCR) | payer MEDICARE, SELFPAY ==
[2021-01-17 09:20] VITALS: BMI 30.6
--- NOTE | 2021-02-15 07:22 | CR.ITP_ITS ---
Diagnosis Exercise - 30-day Assessment - Visit Date of Eval: 02/15/21 Session #:: 10 - Physician Prescribed Exercise Modalities: Treadmill, Biodyne - Biodyne replaced with Lateral [place], NuStep Frequency: 3x/week for 12 weeks [36 sessions] Intensity: 60-80% of age predicted maximum heart rate reserve Current METSs:: 4.0 increase from 3.0 Target Heart Rate:: 93-121 Current RPE:: 12-13 Maximum Excercise HR:: 104 Resting Blood Pressure: 112/48 Maximum Exercise Blood Pressure: 120/64 EKG Type: NSR to sinus tach with rare PACs. - Outcomes & Goals Goals:: Verbalizes understanding of THR, RPE & goal METS by session 6, Documents in home exercise log/reports 30 min aerobic 5 day/wk by DC, Demonstrates accurate pulse taking by DC - Intervention & Plan Exercise Program Goals: Instruct on personal THR & RPE, Instruct on MET level & personal MET goal, Show patient to take own pulse /validate performance until accurate, Instruct on home exercise - 30-day Reassessments 30 day Reassessments:: Progressing - Physical Activity Home Exercise Physical Activity - Home Exercise: Safe Exercise, Warm-up, Self-monitoring, Cool-Down, Home Exercise > 30 min Daily, Sitting Time <3 hours/daily - Outcomes & Goals Outcomes/Goals: Demonstrates correct Warm-up/exercise Cool-Down (S3) if = 2.5 METs, Verbalizes symptoms of exercise intolerance by Session 3 (S3), Demonstrate safe equipment use (S3) & follows exercise prescrition (6), Other: See below - Intervention & Plan Plan/Intervention: Instruct warm-up & cool-down if exercising at > 2 METs, Instruct on symptoms of exercise intolerance & actions to take, Instruct & monitor on saf, Assess intial functional capacity & safety risk, Other See below - 30-day Reassessments 30 day Reassessments:: Progressing Nutrition - Initial Assessment Nutrition - 30-Day Assessment - Program Goals Nutrition Program Goals: LDL <100 optimal. 100 - 129 Near optimal. 130 - 159 Borderline High. 160 - 189 High. Total Cholesterol <200 desirable. 200 - 239 Borderline High. >/= 240 High. HDL < 40 Low >/=60 High. Triglycerides <150 desirable. <199 optimal. VlDL 5 - 40. HgbA1C <7%. BMI <25 Patient has diagnosis of Hyperlipidemia (ICD E78)?: Yes - Visit Date of Assessment:: 02/15/21 Session #:: 10 - Cholesterol/Lipids Triglycerides (mg/dL): 165 Total Cholesterol (mg/dL): 170 LDL Cholesterol (mg/dL): 85 HDL Cholesterol (mg/dL): 52 Determine presence & major risk factors that modify LDL goal: Hypertension or hypertensive medication, Family history of premature CHD in Male < 55 years: female <65 yearsFa, Age men > 45 years; women >/= 55 years Outcomes/Goals: Pt IDs own risk factors & lifestyle modifications by Session 10, Verbalizes symptoms of angina & response by session 3., Pt independently manages Intervention/Plan: Instruct on personal lipid levels & lipid goals/NCEP guidelines, Instruct on cholesterol Referral to dietitian:: Yes - Medical Nutrition Therapy 30-day Reassessments:: Progressing - Diabetes (Other Core Measures) Diabetes Type: Diagnosis Type II ICD-10 E11 Fasting blood glucose:: 159 - 63-213 pre & post exercise Hgb A1C (4.2 -6.3): 7.8 Insulin dependent injection/pump?: Yes Non-Insulin Dependent?: Yes Do you monitor your blood sugar at home?: Yes Referral to Diabetic Clinic:: Yes Outcomes/Goals:: Able to state symptoms of, Able to state, Able to state Intervention/Plan:: Instruct on, Refer to, Instruct on 30-day Reassessments:: Progressing - Weight Mgt (Other Care) Not Applicable: Yes Height: 5 ft 1 in Weight:: 142 lb BMI: 26.8 Diagnosis Overweight/Obesity BMI> 30% ICD-10 E66: No Diagnosis High BMI/Morbid Obesity BMI> 35% ICD-10 Z68: No Outcomes/Goals: Pt sets, maintains & shows weight loss goal & trend during rehab Intervention/Plan: Instruct on ideal BMI & set weight loss goal w/patient 30 day Reassessments:: Progressing - Healthy Eating Habits Will attend diet classes:: Yes Outcomes/Goals:: Consume diet rich in vegs,fruits,whole grain/high fiber,fish,l lucius meat, Limit sat/trans fats,cholesterol & added salts & sugars Intervention/Plan:: Assess current eating habits 30-day Reassessments:: Progressing - Education Gave educational materials for:: Signs & symptoms of hypoglycemia, Signs & symptoms of hyperglycemia, Relate diabetes to coronary artery disease, Healthy eating Nutrition - 60-Day Assessment Nutrition - 90-Day Assessment Nutrition - Final Assessment Medical - Initial Assessment Medical- 30-Day Assessment - Visit Date of Eval: 02/15/21 Session #:: 10 - Medication Compliance Preventative Medication(s):: Aspirin, Ticagrelor/P2Y12 inhibitor, Statin/lipid, Beta nik H/O mental health issues: depression, anxiety, or addiction?: No Doesn?t believe in the benefits of treatment?: No Believes medications are unnecessary or harmful?: No Has a concern about medication side effects?: No Expresses concern over the cost of medications?: No Outcomes/Goals: Verbalizes medications,desired effect & common side effects @ DC, Pt self-reports following medication regimen, Keeps card in wallet w/medications listed by DC Interventions/plans: Instruct on medication effects & side effects, Review medication list w/patient every two weeks, Instruct importance of taking meds as ordered & assist problem solving 30-day Reassessments:: Progressing - Tobacco Use Tobacco Use: Non-smoker - Hypertension Hypertension Diagnosis:: Hypertension ICD-10 I10 Resting Blood Pressure:: 112/48 [place] [employer] Hypertension Guidelines: [place] [employer] Hypertension Guidelines. Normal BP Less than 120/80. Elevated BP 120/80. Hypertension Stage 1: BP 130-139/80-89. Hypertesnion Stage 2: BP 140 or higher/90 or higher. Hypertension Crisis: BP higher than 180/120 Peak Exercise Blood Pressure:: 120/64 Outcomes/Goals: Able to verbalize/achieve optimal blood pressure <130/80, Incorporates diet changes & exercise for blood pressure control by DC Interventions/plan: Instruct on optimal blood pressure, hypertension & medications, Instruct on effects of sodium, alcohol, stress, exercise &hypertension 30 day Reassessments:: Progressing - Tobacco Cessation Referral Smoking Cessation Referral:: No Individual Education/Counseling:: No Education Schedule Given:: Yes - Online resources and printed education book provided to patient Medical- 60-Day Assessment Medical- 90-Day Assessment Medical - Final Assessment Psychosocial - Initial Assess Psychosocial - 30-Day Assess - VIsit Date of Eval: 02/15/21 Session #:: 10 Not Applicable: No History of previous Mental disease:: Yes History of Emotional Disorders: Depression Self-reported stressors: Other - recent lossof and recent cardiac issues. - Psychosocial Test Tool Used:: PHQ-9 Questionnaire phq-9 Severity: Severity. 1-4 Minimal Depression. 5-9 Mild Depression. 10-14 Moderate Depression. 15-19 Moderately Sever Depression. 20-27 Severe Depression. Rule: - Referral to Behavioral Health PS - Interventions: Yes Referral to Physician if PHQ-9 if score is 5-9:, Yes Attend Stress Management Classes, No Referral to Behavioral Health if PHQ-9 score >9:, No Referral to [facility] - Outcomes/Goals: See list Psychosocial Outcomes/Goals:: ID's personal stressors & 2 strategies to manage stress by discharge - Intervention/Plan: See List Interventions/Plan:: Assess stressors,coping strategies & signs of derpression on admission, Instruct/assist pt to develop coping & personal stress Mgt strategies, Instruct patient to recognize signs & symptoms of depression, Instruct patient to recog - 30-day Reassessments: 30 day Reassessments:: Progressing Psychosocial - 60-Day Assess Psychosocial - 90-Day Assess Psychosocial - Final Assessmen Patient Health Questionnaire 30-Day Re-eval Assessment 1. Little interest or pleasure in doing things: More than half the days 2. Feeling down, depressed, or hopeless: Several days 3. Trouble falling or staying asleep, or sleeping too much: Several days 4. Feeling tired or having little energy: Several days 5. Poor appetite or overeating: Several days 6. Feeling bad about yourself -- or that you are a failure or have let yourself or your family down: Not at all 7. Trouble concentrating on things, such as reading the newspaper or watching television: More than half the days 8. Moving or speaking so slowly that other people could have noticed. Or the opposite - being so fidgety or restless that you have been moving around a lot more than usual: Nearly every day 9. Thoughts that you would be better off , or of hurting yourself in some way: Several days How difficult have these problems made it for you to do your work, take care of things at home, or get along with other people?: Very difficult - still dealing with the loss of her and now her recent illness. Total Score: 12 Self-Efficacy 30-Day Re-eval Assessment We would like to know how confident you are in doing certain activities. Please select your confidence level for:: Select your confidence level for the following using the scale 1-10 where 1 is not at all confident and 10 is totally confident. Your score is the average of all 6 responses. Fatigue: How confident are you that you can keep the fatigue caused by your disease from interfering with the things you want to do? Select Number: 6 Physical Discomfort or Pain: How confident are you that you can keep the physical discomfort or pain of your disease from interfering with the things you want to do? Select Number: 8 Emotional Distress: How confident are you that you can keep the emotional distress caused by your disease from interfering with the things you want to do? Select Number: 7 Other Symptoms or Health Problems: How confident are you that you can keep other symptoms or health problems from interfering with the things you want to do? Select Number: 8 Different Tasks and Activities: How confident are you that you can do the different tasks and activities needed to manage your health condition so as to reduce your need to see a doctor? Select Number: 9 Medication: How confident are you that you can do things other than just taking medication to reduce how much your illness affects your everyday life? Select Number: 9 Total Score:: 7 Nutrition Survey
[2021-02-15 07:33] VITALS: BP 112/48; BP 120/64; BMI 26.8
== END 2021-02-28 23:59 ==
LOC: CR 13:00
PROVIDERS: PCP Internal Medicine; Referring Provider Internal Medicine Cardiovascular Disease; Visit Provider Internal Medicine Cardiovascular Disease
DX: I25.10 Atherosclerotic heart disease of native coronary artery without angina pectoris (principal); I34.0 Nonrheumatic mitral (valve) insufficiency; I27.21 Secondary pulmonary arterial hypertension; I35.0 Nonrheumatic aortic (valve) stenosis; I10 Essential (primary) hypertension; E78.00 Pure hypercholesterolemia, unspecified; Z95.1 Presence of aortocoronary bypass graft; Z95.5 Presence of coronary angioplasty implant and graft
CPT/HCPCS: 93798

== ENCOUNTER 2021-03-29 13:00 | Outpatient (RCR) | payer MEDICARE, SELFPAY ==
[2021-02-15 07:33] VITALS: BMI 26.8
[2021-03-01 00:35] VITALS: BP 112/48; BP 120/64
--- NOTE | 2021-03-17 09:47 | PCM.CR.ITP ---
Diagnosis Exercise - 60-day Assessment - Visit Date of Eval: 03/17/21 Session #:: 21 - Physician Prescribed Exercise Modalities: Treadmill, Biodyne - Biodyne replaced with Sci Fit Lateral [place], NuStep Frequency: 3x/week for 12 weeks [36 sessions] Intensity: 60-80% of age predicted maximum heart rate reserve Current METSs:: 4.5 Target Heart Rate:: 93-121 Current RPE:: 11-13 Maximum Excercise HR:: 104 Resting Blood Pressure: 100/42 Maximum Exercise Blood Pressure: 102/50 EKG Type: NSR to sinus tach with rare PACs and PVCs Current Physical Activity or Exercising minutes: 44:00 - Outcomes & Goals Goals:: Verbalizes understanding of THR, RPE & goal METS by session 6, Documents in home exercise log/reports 30 min aerobic 5 day/wk by DC, Demonstrates accurate pulse taking by DC - Intervention & Plan Exercise Program Goals: Instruct on personal THR & RPE, Instruct on MET level & personal MET goal, Show patient to take own pulse /validate performance until accurate, Instruct on home exercise - 30-day Reassessments 30 day Reassessments:: Progressing - Physical Activity Home Exercise Physical Activity - Home Exercise: Safe Exercise, Warm-up, Self-monitoring, Cool-Down, Home Exercise > 30 min Daily, Sitting Time <3 hours/daily - Outcomes & Goals Outcomes/Goals: Demonstrates correct Warm-up/exercise Cool-Down (S3) if = 2.5 METs, Verbalizes symptoms of exercise intolerance by Session 3 (S3), Demonstrate safe equipment use (S3) & follows exercise prescrition (6) - Intervention & Plan Plan/Intervention: Instruct warm-up & cool-down if exercising at > 2 METs, Instruct on symptoms of exercise intolerance & actions to take, Instruct & monitor on saf, Assess intial functional capacity & safety risk - 30-day Reassessments 30 day Reassessments:: Progressing Nutrition - Initial Assessment Nutrition - 30-Day Assessment Nutrition - 60-Day Assessment - Program Goals Nutrition Program Goals: LDL <100 optimal. 100 - 129 Near optimal. 130 - 159 Borderline High. 160 - 189 High. Total Cholesterol <200 desirable. 200 - 239 Borderline High. >/= 240 High. HDL < 40 Low >/=60 High. Triglycerides <150 desirable. <199 optimal. VlDL 5 - 40. HgbA1C <7%. BMI <25 Patient has diagnosis of Hyperlipidemia (ICD E78)?: Yes - Visit Date of Assessment:: 03/17/21 Session #:: 21 - Cholesterol/Lipids Triglycerides (mg/dL): 165 Total Cholesterol (mg/dL): 170 LDL Cholesterol (mg/dL): 85 HDL Cholesterol (mg/dL): 52 Determine presence & major risk factors that modify LDL goal: Hypertension or hypertensive medication, Family history of premature CHD in Male < 55 years: female <65 yearsFa, Age men > 45 years; women >/= 55 years Outcomes/Goals: Pt IDs own risk factors & lifestyle modifications by Session 10, Verbalizes symptoms of angina & response by session 3., Pt independently manages Intervention/Plan: Instruct on personal lipid levels & lipid goals/NCEP guidelines, Instruct on cholesterol Referral to dietitian:: Yes - Medical Nutrition Therapy 30-day Reassessments:: Progressing - Diabetes (Other Core Measures) Diabetes Type: Diagnosis Type II ICD-10 E11 Fasting blood glucose:: 152 Hgb A1C (4.2 -6.3): 7.8 Insulin dependent injection/pump?: Yes Non-Insulin Dependent?: Yes Referral to Diabetic Clinic:: Yes Outcomes/Goals:: Able to state symptoms of, Able to state, Able to state Intervention/Plan:: Instruct on, Refer to, Instruct on 30-day Reassessments:: Progressing - Weight Mgt (Other Care) Not Applicable: Yes Height: 5 ft 1 in - Weight:: 141 lb 8 oz BMI: 26.7 Diagnosis Overweight/Obesity BMI> 30% ICD-10 E66: No Diagnosis High BMI/Morbid Obesity BMI> 35% ICD-10 Z68: No Outcomes/Goals: Pt sets, maintains & shows weight loss goal & trend during rehab Intervention/Plan: Instruct on ideal BMI & set weight loss goal w/patient 30 day Reassessments:: Met - Healthy Eating Habits Will attend diet classes:: Yes Outcomes/Goals:: Consume diet rich in vegs,fruits,whole grain/high fiber,fish,lean meat, Limit sat/trans fats,cholesterol & added salts & sugars Intervention/Plan:: Assess current eating habits 30-day Reassessments:: Progressing - Education Gave educational materials for:: Signs & symptoms of hypoglycemia, Signs & symptoms of hyperglycemia, Relate diabetes to coronary artery disease, Healthy eating Nutrition - 90-Day Assessment Nutrition - Final Assessment Medical - Initial Assessment Medical- 30-Day Assessment Medical- 60-Day Assessment - Visit Date of Eval: 03/17/21 Session #:: 21 - Medication Compliance Preventative Medication(s):: Aspirin, Clopidogrel/P2Y12 inhibit H/O mental health issues: depression, anxiety, or addiction?: Yes Doesn?t believe in the benefits of treatment?: No Believes medications are unnecessary or harmful?: No Has a concern about medication side effects?: No Expresses concern over the cost of medications?: No Outcomes/Goals: Verbalizes medications,desired effect & common side effects @ DC, Pt self-reports following medication regimen, Keeps card in wallet w/medications listed by DC Interventions/plans: Instruct on medication effects & side effects, Review medication list w/patient every two weeks, Instruct importance of taking meds as ordered & assist problem solving 30-day Reassessments:: Progressing - Tobacco Use Tobacco Use: Non-smoker - Hypertension Hypertension Diagnosis:: Hypertension ICD-10 I10 Resting Blood Pressure:: 100/42 [place] [employer] Hypertension Guidelines: [place] [employer] Hypertension Guidelines. Normal BP Less than 120/80. Elevated BP 120/80. Hypertension Stage 1: BP 130-139/80-89. Hypertesnion Stage 2: BP 140 or higher/90 or higher. Hypertension Crisis: BP higher than 180/120 Peak Exercise Blood Pressure:: 102/50 Outcomes/Goals: Able to verbalize/achieve optimal blood pressure <130/80, Incorporates diet changes & exercise for blood pressure control by DC Interventions/plan: Instruct on optimal blood pressure, hypertension & medications, Instruct on effects of sodium, alcohol, stress, exercise &hypertension 30 day Reassessments:: Progressing - Tobacco Cessation Referral Smoking Cessation Referral:: No Individual Education/Counseling:: No Education Schedule Given:: Yes Medical- 90-Day Assessment Medical - Final Assessment Psychosocial - Initial Assess Psychosocial - 30-Day Assess Psychosocial - 60-Day Assess - VIsit Date of Eval: 03/17/21 Session #:: 21 Not Applicable: Yes History of previous Mental disease:: No History of Emotional Disorders: Anxious, Depression Self-reported stressors: Family, Medical/Health - added stress of cardiac issue at the same time as of her spouse,, Other - recent of - Psychosocial Test Tool Used:: PHQ-9 Questionnaire phq-9 Severity: Severity. 1-4 Minimal Depression. 5-9 Mild Depression. 10-14 Moderate Depression. 15-19 Moderately Sever Depression. 20-27 Severe Depression. Rule: - Referral to Behavioral Health PS - Interventions: Yes Referral to Behavioral Health if PHQ-9 score >9:, Yes Referral to Physician if PHQ-9 if score is 5-9: - Patient really could benefit from professional counselor dealing with & health issue, Yes Attend Stress Management Classes - Outcomes/Goals: See list Psychosocial Outcomes/Goals:: ID's personal stressors & 2 strategies to manage stress by discharge - Intervention/Plan: See List Interventions/Plan:: Assess stressors,coping strategies & signs of derpression on admission, Instruct/assist pt to develop coping & personal stress Mgt strategies, Refer to Behavioral Health if appropriate, Refer to Physician if appropriate, Instruct patient to recognize signs & symptoms of depression, Instruct patient to recog Psychosocial - 90-Day Assess Psychosocial - Final Assessmen Patient Health Questionnaire 60-Day Re-eval Assessment 1. Little interest or pleasure in doing things: Not at all 2. Feeling down, depressed, or hopeless: Not at all 3. Trouble falling or staying asleep, or sleeping too much: Several days 4. Feeling tired or having little energy: Several days 5. Poor appetite or overeating: Not at all 6. Feeling bad about yourself -- or that you are a failure or have let yourself or your family down: Not at all 7. Trouble concentrating on things, such as reading the newspaper or watching television: Not at all 8. Moving or speaking so slowly that other people could have noticed. Or the opposite - being so fidgety or restless that you have been moving around a lot more than usual: Not at all 9. Thoughts that you would be better off , or of hurting yourself in some way: Not at all Total Score: 2 Self-Efficacy 60-Day Re-eval Assessment We would like to know how confident you are in doing certain activities. Please select your confidence level for:: Select your confidence level for the following using the scale 1-10 where 1 is not at all confident and 10 is totally confident. Your score is the average of all 6 responses. Fatigue: How confident are you that you can keep the fatigue caused by your disease from interfering with the things you want to do? Select Number: 10 Physical Discomfort or Pain: How confident are you that you can keep the physical discomfort or pain of your disease from interfering with the things you want to do? Select Number: 9 Emotional Distress: How confident are you that you can keep the emotional distress caused by your disease from interfering with the things you want to do? Select Number: 9 Other Symptoms or Health Problems: How confident are you that you can keep other symptoms or health problems from interfering with the things you want to do? Select Number: 9 Different Tasks and Activities: How confident are you that you can do the different tasks and activities needed to manage your health condition so as to reduce your need to see a doctor? Select Number: 10 Medication: How confident are you that you can do things other than just taking medication to reduce how much your illness affects your everyday life? Select Number: 10 Total Score:: 9 Nutrition Survey
[2021-03-17 10:14] VITALS: BP 100/42; BP 102/50; BMI 26.7
== END 2021-03-31 23:59 ==
LOC: CR 13:00
PROVIDERS: PCP Internal Medicine; Referring Provider Internal Medicine Cardiovascular Disease; Visit Provider Internal Medicine Cardiovascular Disease
DX: I25.10 Atherosclerotic heart disease of native coronary artery without angina pectoris (principal); I34.0 Nonrheumatic mitral (valve) insufficiency; I27.21 Secondary pulmonary arterial hypertension; I35.0 Nonrheumatic aortic (valve) stenosis; I10 Essential (primary) hypertension; E78.00 Pure hypercholesterolemia, unspecified; Z95.1 Presence of aortocoronary bypass graft; Z95.5 Presence of coronary angioplasty implant and graft
CPT/HCPCS: 93798

== ENCOUNTER 2021-04-03 09:00 | Outpatient (RCR) | payer MEDICARE, SELFPAY ==
[2021-03-17 10:14] VITALS: BMI 26.7
[2021-04-01 00:32] VITALS: BP 100/42; BP 102/50
== END 2021-05-01 23:59 ==
LOC: CR 09:00
PROVIDERS: PCP Internal Medicine; Referring Provider Internal Medicine Cardiovascular Disease; Visit Provider Internal Medicine Cardiovascular Disease
DX: I25.10 Atherosclerotic heart disease of native coronary artery without angina pectoris (principal); Z95.1 Presence of aortocoronary bypass graft; I10 Essential (primary) hypertension; I34.0 Nonrheumatic mitral (valve) insufficiency; I35.0 Nonrheumatic aortic (valve) stenosis; Z95.5 Presence of coronary angioplasty implant and graft; E78.00 Pure hypercholesterolemia, unspecified
CPT/HCPCS: 93798

== ENCOUNTER → 2022-06-18 | Outpatient (CLI) | payer MEDICARE, SELFPAY ==
[2021-03-17 10:14] VITALS: BMI 26.7
--- NOTE | 2022-06-18 12:35 | ECHOD_ITS ---
Reason For Study: Murmur Procedure This was a 2D Doppler, Color Flow transthoracic echocardiogram. Exam performed in department. Left Ventricle Normal LV size. Left ventricular systolic function is normal. The estimated ejection fraction is 60 %. Stage 2 diastolic dysfunction. No regional wall motion abnormalities noted. Right Ventricle Normal RV size. Normal systolic function. Atria The left atrium is mildly enlarged. Normal right atrium. Mitral Valve There is moderate mitral annular calcification. Mitral valve doming/Hockey Sticking. Mean transmitral valve gradient 10.4 mmHg. Mild-Moderate mitral valve stenosis. Mild-Moderate (1-2+) eccentric mitral valve insufficiency. Tricuspid Valve Normal tricuspid valve. Mild to moderate (1-2+) tricuspid valve insufficiency. Pulmonary artery systolic pressure is 44 mmHg. Aortic Valve Trisinus/trileaflet aortic valve. Mild focal aortic valve calcification. Peak aortic valve gradient 45 mmHg. Mean aortic valve gradient 25 mmHg. Moderate aortic stenosis. Calculated aortic valve area (continuity equation) is 1.0 cm2. Mild (1+) aortic valve insufficiency. Pulmonic Valve Normal pulmonic valve. Great Vessels Normal aortic root. The pulmonary artery is normal size. Normal inferior vena cava. Pericardium/Pleural No pericardial effusion. MMode/2D Measurements & Calculations LVIDd: 4.2 cm IVSd: 0.92 cm LVOT diam: 2.0 cm LVIDs: 2.4 cm LVPWd: 0.89 cm LVOT area: 3.1 cm2 RVDd: 3.3 cm FS: 43.5 % Ao root diam: 2.9 cm LAV(MOD-bp): 61.5 ml LA A4 area: 21.5 cm2 LA dimension: 4.4 cm LAV(MOD-bp) Indexed: 36.8 ml/m2 LAV(MOD-sp2): 59.6 ml LAV(MOD-sp4): 62.8 ml RA A4 area: 12.5 cm2 Time Measurements MV dec time: 0.50 sec Doppler Measurements & Calculations MV E max ascencion: 217.1 cm/sec Lat Peak E' Ascencion: 4.2 cm/sec Med Peak E' Ascencion: 4.0 cm/sec MV A max ascencion: 181.7 cm/sec E/E' lat: 51.7 E/E' med: 53.7 MV E/A: 1.2 MV V2 max: 251.5 cm/sec MV P1/2t max ascencion: 249.3 cm/sec Ao V2 max: 337.0 cm/sec MV max P.3 mmHg MV P1/2t: 150.5 msec Ao max P.4 mmHg MV V2 mean: 149.8 cm/sec MV dec slope: 485.1 cm/sec2 Ao V2 mean: 232.9 cm/sec MV mean P.4 mmHg Ao mean P.7 mmHg MV V2 VTI: 98.7 cm MVA(P1/2t): 1.5 cm2 Ao V2 VTI: 83.3 cm MVA(VTI): 0.98 cm2 AV (velocity ratio): 0.38 TANIKA(I,D): 1.2 cm2 TANIKA(V,D): 1.0 cm2 AI max ascencion: 412.6 cm/sec LV V1 max: 113.9 cm/sec SV(LVOT): 96.5 ml AI max P.1 mmHg LV V1 max P.2 mmHg LV V1 mean P.2 mmHg AI dec slope: 247.8 cm/sec2 LV V1 mean: 85.4 cm/sec AI P1/2t: 487.8 msec LV V1 VTI: 31.3 cm TR max ascencion: 314.6 cm/sec TR max P.6 mmHg ECHO/Echo Complete Interpretation Summary Normal LV size. Left ventricular systolic function is normal. The estimated ejection fraction is 60 %. Stage 2 diastolic dysfunction. Pulmonary artery systolic pressure is 44 mmHg. Mild-Moderate (1-2+) eccentric mitral valve insufficiency. Mean aortic valve gradient 25 mmHg. Mean transmitral valve gradient 10.4 mmHg. Mild-Moderate mitral valve stenosis. Moderate aortic stenosis. Ordering Physician: Jem Segura Referring Physician: Lindy Can M.D. Performed By: Malachi Mccollum RCS
== END | disposition home or self-care (01) ==
LOC: CVS 12:33
PROVIDERS: PCP Internal Medicine; Visit Provider Nurse Practitioner Family
DX: I34.0 Nonrheumatic mitral (valve) insufficiency (principal)
CPT/HCPCS: 93306

== ENCOUNTER → 2022-11-19 | Outpatient (CLI) | payer MEDICARE, SELFPAY ==
[2021-03-17 10:14] VITALS: BMI 26.7
[2022-11-19 14:45] LABS: Anion Gap 4 (5-15); BUN 15 mg/dL (7-18); BUN/Creat Ratio 21.1 RATIO (10-20); Chloride 105 mmol/L (98-107); Creatinine, Serum 0.71 mg/dL (0.55-1.02); EST Glomerular Filtration Rate 84 mL/min (>60); Est Glom Filt Rate - Afr Amer 101 mL/min (>60); Glucose 88 mg/dL (74-106); Potassium 3.8 mmol/L (3.5-5.1); Sodium Level 139 mmol/L (136-145)
[2022-11-19 20:14] LABS: BNP,B-Type NATRIURETIC PEPTIDE 223.1 pg/mL (0-100)
== END | disposition home or self-care (01) ==
LOC: LAB 13:40
PROVIDERS: PCP Internal Medicine; Referring Provider Nurse Practitioner Family; Visit Provider Nurse Practitioner Family
DX: R06.00 Dyspnea, unspecified (principal); I35.0 Nonrheumatic aortic (valve) stenosis; I10 Essential (primary) hypertension; E78.5 Hyperlipidemia, unspecified
CPT/HCPCS: 36415; 80048; 83880

== ENCOUNTER → 2023-06-25 | Outpatient (CLI) | payer MEDICARE, SELFPAY ==
[2021-03-17 10:14] VITALS: BMI 26.7
--- NOTE | 2023-06-25 08:46 | ECHOD_ITS ---
Reason For Study: CORONARY ARTERY DISEASE Procedure This was a 2D Doppler, Color Flow transthoracic echocardiogram. Myocardial strain analysis was performed in this exam to aid in the assessment of cardiac function. Exam performed in department. Left Ventricle Normal LV size. Left ventricular systolic function is normal. The estimated ejection fraction is 70 %. No regional wall motion abnormalities noted. Right Ventricle Normal RV size. Normal systolic function. Atria The left atrium is severely enlarged. The right atrium is mildly enlarged. Mitral Valve There is moderate to severe mitral annular calcification. Tricuspid Valve Normal tricuspid valve. Mild tricuspid valve insufficiency. Pulmonary artery systolic pressure is 44 mmHg. Aortic Valve Trisinus/trileaflet aortic valve. Moderate focal aortic valve calcification. Peak aortic valve gradient 62 mmHg. Mean aortic valve gradient 37 mmHg. Mild (1+) aortic valve insufficiency. Pulmonic Valve Normal pulmonic valve. Great Vessels Normal aortic root. The pulmonary artery is normal size. Inferior vena cava collapse with respiration. Pericardium/Pleural No pericardial effusion. MMode/2D Measurements & Calculations LVIDd: 4.5 cm IVSd: 0.80 cm LVOT diam: 2.0 cm LVIDs: 2.5 cm LVPWd: 0.81 cm LVOT area: 3.0 cm2 RVDd: 3.3 cm FS: 44.0 % Ao root diam: 3.2 cm LAV(MOD-bp): 71.0 ml LVAd ap4: 18.6 cm2 LAV(MOD-bp) Indexed: 42.5 ml/m2 LVLd ap4: 6.3 cm LAV(MOD-sp2): 80.8 ml EDV(MOD-sp4): 47.8 ml LAV(MOD-sp4): 62.5 ml EDV(sp4-el): 46.9 ml LVAs ap4: 8.4 cm2 LVLs ap4: 5.2 cm ESV(MOD-sp4): 12.0 ml ESV(sp4-el): 11.6 ml EF(MOD-sp4): 74.9 % EF(sp4-el): 75.3 % LVAd ap2: 20.8 cm2 SV(MOD-sp4): 35.8 ml SV(MOD-sp2): 39.7 ml LVLd ap2: 6.8 cm EDV(MOD-sp2): 52.7 ml EDV(sp2-el): 54.3 ml LVAs ap2: 8.5 cm2 LVLs ap2: 5.0 cm ESV(MOD-sp2): 13.0 ml ESV(sp2-el): 12.2 ml EF(MOD-sp2): 75.4 % SV(sp4-el): 35.3 ml LA dimension(2D): 5.3 cm LA A4 area: 22.4 cm2 RA A4 area: 14.5 cm2 TAPSE: 1.9 cm Time Measurements MV dec time: 0.60 sec Doppler Measurements & Calculations MV E max ned: 245.0 cm/sec MV V2 max: 266.8 cm/sec MV A max ned: 179.2 cm/sec MV max P.5 mmHg MV dec slope: 410.7 cm/sec2 MV E/A: 1.4 MV V2 mean: 165.7 cm/sec MV mean P.9 mmHg MV V2 VTI: 99.8 cm MVA(VTI): 0.88 cm2 Ao V2 max: 391.3 cm/sec AI max ned: 358.4 cm/sec LV V1 max: 120.8 cm/sec Ao max P.7 mmHg AI max P.4 mmHg LV V1 max P.8 mmHg Ao V2 mean: 291.6 cm/sec AI dec slope: 227.9 cm/sec2 LV V1 mean P.5 mmHg Ao mean P.2 mmHg AI P1/2t: 460.7 msec LV V1 mean: 91.8 cm/sec Ao V2 VTI: 94.5 cm LV V1 VTI: 29.3 cm AV (velocity ratio): 0.31 TANIKA(I,D): 0.93 cm2 TANIKA(V,D): 0.92 cm2 SV(LVOT): 87.7 ml PA V2 max: 116.0 cm/sec TR max ned: 322.6 cm/sec PA max PG (full): 1.0 mmHg TR max P.6 mmHg ECHO/Echo Complete Interpretation Summary Normal LV size. Left ventricular systolic function is normal. The estimated ejection fraction is 70 %. Moderate focal aortic valve calcification. Mean aortic valve gradient 37 mmHg. Mild (1+) aortic valve insufficiency. Compared to the previous the aortic valve gradients are significantly increased . The global longitudinal strain is normal. The global longitudinal strain = -19.2 % (normal ). Ordering Physician: Jem Segura Referring Physician: Lindy Can M.D. Performed By: Daria Mccord RDCS
== END | disposition home or self-care (01) ==
LOC: CVS 08:42
PROVIDERS: PCP Internal Medicine; Referring Provider Nurse Practitioner Family; Visit Provider Nurse Practitioner Family
DX: I25.10 Atherosclerotic heart disease of native coronary artery without angina pectoris (principal)
CPT/HCPCS: 93306

== ENCOUNTER → 2023-07-09 | Outpatient (CLI) | payer MEDICARE, SELFPAY ==
[2021-03-17 10:14] VITALS: BMI 26.7
--- NOTE | 2023-07-09 16:20 | RAD_ITS ---
STUDY: X-RAY CHEST REASON FOR EXAM: Female, 83 years old. Pre-op: [facility] TECHNIQUE: PA and lateral COMPARISON: December 27, 2020 FINDINGS: The lungs are clear and expanded. There is no demonstrated pleural abnormality. Postop change status post sternotomy and CABG Normal size heart. Normal mediastinum and marilou. Normal visualized pulmonary arteries. Tortuous mildly calcified aortic arch and descending thoracic aorta. Dorsal spine and shoulders demonstrate degenerative changes. Normal visualized ribs, and clavicles. There is no demonstrated abnormality of the visualized soft tissue structures of the upper abdomen. RAD/Chest PA and Lateral IMPRESSION: No acute cardiopulmonary pathology status post median sternotomy and CABG. Electronically Signed: Benny Salazar MD at 16:57 EDT ,
[2023-07-09 17:13] LABS: Absolute Lymphocyte Count 2.05 X10^3/uL (0.83-4.51); Absolute Neutrophil Count 6.1 X10^3/uL (2.0-7.7); Basophil# 0.04 X10^3/uL; Basophil% 0.4 % (0-1); Eosinophil# 0.19 X10^3/uL; Eosinophils% 2.1 % (0-5); Hemoglobin 12.6 g/dL (12.0-15.0); Lymphocyte # 2.05 X10^3/ul (0.83-4.51); Lymphocyte % 22.6 % (19-41); Mean Corp Hgb Conc 33.2 g/dL (32-36); Mean Corpuscular Hgb 33.3 pg (27.0-32.0); Mean Corpuscular Volume 100.5 fL (81-99); Mean Platelet Vol. 11.5 fl (6.2-12.0); Monocyte# 0.69 X10^3/uL; Monocyte% 7.6 % (0-10); NRBC Flagged by Analyzer 0 % (0-5); Neutrophil % 67.1 % (47-70); Platelet Count 245 K/mm3 (150-450); RBC Distribution Width CV 12.6 % (11.6-14.6); RBC Distribution Width SD 46.8 fl (35.1-43.9); Red Blood Count 3.78 M/mm3 (4.2-5.4); White Blood Count 9.1 K/mm3 (4.4-11.0)
[2023-07-09 17:38] LABS: Anion Gap 4 (5-15); BUN 24 mg/dL (7-18); BUN/Creat Ratio 28.4 RATIO (10-20); Chloride 100 mmol/L (98-107); Creatinine, Serum 0.84 mg/dL (0.55-1.02); EST Glomerular Filtration Rate 69 mL/min (>60); Est Glom Filt Rate - Afr Amer 83 mL/min (>60); Glucose 251 mg/dL (74-106); Potassium 4.4 mmol/L (3.5-5.1); Sodium Level 133 mmol/L (136-145)
== END | disposition home or self-care (01) ==
LOC: RAD 16:11
PROVIDERS: PCP Internal Medicine; Referring Provider Nurse Practitioner Family; Visit Provider Nurse Practitioner Family
DX: I34.0 Nonrheumatic mitral (valve) insufficiency (principal); I25.10 Atherosclerotic heart disease of native coronary artery without angina pectoris; I35.0 Nonrheumatic aortic (valve) stenosis; I10 Essential (primary) hypertension; E78.5 Hyperlipidemia, unspecified
CPT/HCPCS: 36415; 71046; 80048; 85025

== ENCOUNTER 2023-07-29 08:27 | Day surgery (SDC) | payer MEDICARE, SELFPAY ==
[2021-03-17 10:14] VITALS: BMI 26.7
[2023-07-26 08:34] VITALS: BMI 29.0
[2023-07-29 10:10] LABS: Bedside Glucose 156 mg/dL (74-106)
--- NOTE | 2023-07-29 10:41 | CL.D_ITS ---
Patient Name: HALEIGH FISHER Study Date: 07/29/2023 Performing: Guicho Hoyos MD Ht: 61 inches 154.94 cm : 1940 Wt: 153.99 lbs 69.85 kg Age: 83 Gender: female BSA: 1.69 PROCEDURE(S) PERFORMED DC03-([id number])LHC/COR/LV/CABG CLINICAL PROFILE AND INDICATIONS Indications: Valvular Disease Heart Failure: None Stress/Imaging Stress/Image Study Performed: No CAD Presentations: Symptom unlikely to be ischemic. CONCLUSIONS Patient status post coronary bypass surgery. Patent MACARIO to the LAD and radial artery to the diagonal vessel. [place] disease noted of the circumflex artery which is moderate. Patient is noted to have moderately severe aortic stenosis. RECOMMENDATIONS Would recommend tertiary care facility opinion regarding TAVR. DESCRIPTION OF PROCEDURE The patient arrived to the procedure lab. The risks and benefits of the procedure as well as a full description of our services here and current unavailability of surgical backup were fully explained to the patient and/or their significant other prior to the catheterization. The Timeout was completed, verifying the correct patient and procedure. The patient's procedural site was prepped and draped in the usual fashion. Local anesthetic was given subcutaneously to right groin region with Lidocaine 2%. Using a modified Seldinger technique, arterial access was obtained via the right femoral artery, a 5Fr sheath was inserted. Left Coronary Artery selective angiography was performed in multiple views using a 5 Fr. JL4 catheter. Left internal mammary artery graft to the LAD selective angiography was performed in multiple views using a 5 Fr. IM catheter. Left Ventriculography was performed in DUKES projection using a 5 Fr. Pigtail catheter. LV to AO pullback pressures were then recorded. CORONARY ANGIOGRAPHY DOMINANCE: Left Dominant LEFT HEART ASSESSMENT Left Ventricular Ejection Fraction: by LV Gram 60 % Normal LV wall motion Normal Left Ventricular systolic function Aortic Valve Mean Gradient: [id number] LEFT MAIN: Distal left main high-grade stenosis. LEFT ANTERIOR DESCENDING ARTERY: is occluded DIAGONAL 1: Ostial - Ostial high-grade stenosis noted. CIRCUMFLEX ARTERY: Proximal 70% stenosis noted in first obtuse marginal branch with mild disease. The AV groove branch has mild disease. RIGHT CORONARY ARTERY: Mild luminal irregularities less than 30% GRAFTS: MACARIO graft to the Mid LAD is patent Radial graft to the 1st Diagonal is patent VALVE FINDINGS: Aortic Valve Stenosis - severe COMPLICATIONS No Complications PROCEDURE MEDICATIONS Versed 1 mg IV Fentanyl 50 mcg IV Oxygen: 2 L/min via nasal cannula Benadryl 25 mg IV @ 07/29/2023 09:54:07 Solu-cortef 100 mg IV 07/29/2023 09:53:55 SUMMARY OF HEMODYNAMIC DATA Time AIR REST ECG 08:54:49 AO 148/67 (97) SA 10:15:05 LV 186/17, 33 10:28:41 LV 177/15, 31 10:28:48 LV 175/17, 28 10:29:33 LV 170/17, 32 10:29:40 LVp 176/26, 31 10:29:58 AOp 149/65 (96) 10:30:03 AIR REST 10:35:25 Valve Area (c P-P/ms Time AIR REST Aortic 0.00 34.3 mn/360 ms 27.0 pk/360 ms 10:29:58 Signed By Guicho Hoyos MD On 07/29/2023 10:40:47 Guicho Hoyos MD
== END 2023-07-29 15:51 | disposition home or self-care (01) ==
PROVIDERS: PCP Internal Medicine; Referring Provider Internal Medicine Cardiovascular Disease; Visit Provider Internal Medicine Cardiovascular Disease
DX: I35.0 Nonrheumatic aortic (valve) stenosis (principal); E11.9 Type 2 diabetes mellitus without complications; Z95.1 Presence of aortocoronary bypass graft; I25.10 Atherosclerotic heart disease of native coronary artery without angina pectoris; I10 Essential (primary) hypertension; K21.9 Gastro-esophageal reflux disease without esophagitis; Z79.82 Long term (current) use of aspirin; Z95.5 Presence of coronary angioplasty implant and graft; Z82.49 Family history of ischemic heart disease and other diseases of the circulatory system; Z87.891 Personal history of nicotine dependence; R53.83 Other fatigue; I34.0 Nonrheumatic mitral (valve) insufficiency; E78.00 Pure hypercholesterolemia, unspecified
CPT/HCPCS: 82962; 93459; 99152; 99153; J7040; Q9967; C1769

== ENCOUNTER → 2023-08-23 | Outpatient (CLI) | payer MEDICARE, SELFPAY ==
[2021-03-17 10:14] VITALS: BMI 26.7
[2023-08-23 09:54] LABS: Anion Gap 6 (5-15); BUN 15 mg/dL (7-18); BUN/Creat Ratio 21.2 RATIO (10-20); Calcium,Total 9.1 mg/dL (8.5-10.1); Chloride 106 mmol/L (98-107); Creatinine, Serum 0.71 mg/dL (0.55-1.02); EST Glomerular Filtration Rate 84 mL/min (>60); Est Glom Filt Rate - Afr Amer 102 mL/min (>60); Glucose 172 mg/dL (74-106); Potassium 4.2 mmol/L (3.5-5.1); Sodium Level 139 mmol/L (136-145)
== END | disposition home or self-care (01) ==
LOC: LAB 08:51
PROVIDERS: PCP Internal Medicine
DX: I35.0 Nonrheumatic aortic (valve) stenosis (principal)
CPT/HCPCS: 36415; 80048

== ENCOUNTER → 2023-09-20 | Outpatient (CLI) | payer MEDICARE, SELFPAY ==
[2021-03-17 10:14] VITALS: BMI 26.7
[2023-09-20 10:16] LABS: Absolute Lymphocyte Count 1.45 X10^3/uL (0.83-4.51); Absolute Neutrophil Count 5.1 X10^3/uL (2.0-7.7); Basophil# 0.05 X10^3/uL; Basophil% 0.7 % (0-1); Eosinophil# 0.16 X10^3/uL; Eosinophils% 2.1 % (0-5); Hematocrit 37.7 % (37-47); Hemoglobin 12.3 g/dL (12.0-15.0); Lymphocyte # 1.45 X10^3/ul (0.83-4.51); Lymphocyte % 19.1 % (19-41); Mean Corp Hgb Conc 32.6 g/dL (32-36); Mean Corpuscular Hgb 33.1 pg (27.0-32.0); Mean Corpuscular Volume 101.3 fL (81-99); Mean Platelet Vol. 10.5 fl (6.2-12.0); Monocyte# 0.79 X10^3/uL; Monocyte% 10.4 % (0-10); NRBC Flagged by Analyzer 0 % (0-5); Neutrophil # 5.14 X10^3/uL (2.7-7.7); Neutrophil % 67.4 % (47-70); Platelet Count 233 K/mm3 (150-450); RBC Distribution Width SD 48.8 fl (35.1-43.9); Red Blood Count 3.72 M/mm3 (4.2-5.4); White Blood Count 7.6 K/mm3 (4.4-11.0)
== END | disposition home or self-care (01) ==
LOC: LAB 09:31
PROVIDERS: PCP Internal Medicine; Referring Provider Nurse Practitioner Adult Health; Visit Provider Nurse Practitioner Adult Health
DX: Z95.2 Presence of prosthetic heart valve (principal)
CPT/HCPCS: 36415; 85025

== ENCOUNTER → 2023-11-11 | Outpatient (CLI) | payer MEDICARE, SELFPAY ==
[2021-03-17 10:14] VITALS: BMI 26.7
[2023-11-11 09:52] LABS: Anion Gap 5 (5-15); BUN 14 mg/dL (7-18); BUN/Creat Ratio 19.1 RATIO (10-20); Calcium,Total 8.9 mg/dL (8.5-10.1); Chloride 104 mmol/L (98-107); Creatinine, Serum 0.73 mg/dL (0.55-1.02); EST Glomerular Filtration Rate 81 mL/min (>60); Est Glom Filt Rate - Afr Amer 98 mL/min (>60); Glucose 212 mg/dL (74-106); Potassium 4.2 mmol/L (3.5-5.1); Sodium Level 138 mmol/L (136-145)
== END | disposition home or self-care (01) ==
LOC: LAB 08:47
PROVIDERS: PCP Internal Medicine; Referring Provider Nurse Practitioner Adult Health; Visit Provider Nurse Practitioner Adult Health
DX: I35.0 Nonrheumatic aortic (valve) stenosis (principal)
CPT/HCPCS: 36415; 80048

== ENCOUNTER → 2023-11-20 | Outpatient (CLI) | payer MEDICARE, SELFPAY ==
[2021-03-17 10:14] VITALS: BMI 26.7
[2023-11-20 15:43] LABS: Absolute Lymphocyte Count 1.91 X10^3/uL (0.83-4.51); Absolute Neutrophil Count 6.3 X10^3/uL (2.0-7.7); Basophil# 0.05 X10^3/uL; Basophil% 0.5 % (0-1); Eosinophil# 0.13 X10^3/uL; Eosinophils% 1.4 % (0-5); Hematocrit 39.6 % (37-47); Lymphocyte # 1.91 X10^3/ul (0.83-4.51); Lymphocyte % 20.6 % (19-41); Mean Corp Hgb Conc 32.8 g/dL (32-36); Mean Corpuscular Hgb 32.9 pg (27.0-32.0); Mean Corpuscular Volume 100.3 fL (81-99); Mean Platelet Vol. 10.9 fl (6.2-12.0); Monocyte# 0.85 X10^3/uL; Monocyte% 9.2 % (0-10); NRBC Flagged by Analyzer 0 % (0-5); Platelet Count 258 K/mm3 (150-450); RBC Distribution Width SD 47.8 fl (35.1-43.9); Red Blood Count 3.95 M/mm3 (4.2-5.4); White Blood Count 9.3 K/mm3 (4.4-11.0)
== END | disposition home or self-care (01) ==
LOC: LAB 14:43
PROVIDERS: PCP Internal Medicine; Referring Provider Nurse Practitioner Gerontology; Visit Provider Nurse Practitioner Gerontology
DX: R53.83 Other fatigue (principal)
CPT/HCPCS: 36415; 85025

== ENCOUNTER 2024-12-26 02:21 | Emergency (ER) | payer MEDICARE, SELFPAY ==
[2021-03-17 10:14] VITALS: BMI 26.7
--- OUTSIDE RECORDS SUMMARY | 2024-12-07 11:12 | XMS RPT_ITS ---
Author Name Auto Generated Organization OHIP Care Team Providers Care Sap Manager Name Role Phone TALAMPAS, LORI, Primary Care Unavailable SAM RAYMOND Referring Unavailable SAM RAYMOND Attending Unavailable ELIZABETH ORTIZ Attending Unavailable TALAMPAS, LORI, Primary Care Unavailable TALAMPAS, LORI D Primary Care Unavailable NICOLE POOLEI Attending Unavailable TALAMPAS, LORI D Primary Care Unavailable MI POOLE Referring Unavailable TALAMPAS, LORI D Primary Care Unavailable SELF Referring Unavailable TALAMPAS, LORI D Primary Care Unavailable TALAMPAS, LORI D Primary Care Unavailable TALAMPAS, LORI D Attending Unavailable PB DASILVA Attending Unavailable TALAMPAS, LORI D Primary Care Unavailable SELF Referring Unavailable TALAMPAS, LORI D Primary Care Unavailable TALAMPAS, LORI D Primary Care Unavailable TALAMPAS, LORI D Referring Unavailable POOLE, MI Attending Unavailable TALAMPAS, LORI D Primary Care Unavailable SELF Referring Unavailable TALAMPAS, LORI D Primary Care Unavailable POOLENICOLEI Attending Unavailable TALAMPAS, LORI D Primary Care Unavailable TALAMPAS, LORI D Attending Unavailable TALAMPAS, LORI D Primary Care Unavailable TALAMPAS, LORI D Referring Unavailable TALAMPAS, LORI D Primary Care Unavailable PROBLEMS DATE TYPE CONDITION / CODE ATTENDING STATUS [facility] 12/07/2024 Active Medicare annual wellness visit, subsequent / Z00.00(ICD-10) MI POOLE Active [facility] 12/07/2024 Active Encounter for screening examination for other mental health and behavioral disorders / Z13.39(ICD-10) MI POOLE Active [facility] 12/07/2024 Active Hearing loss, unspecified hearing loss type, unspecified laterality / H91.90(ICD-10) MI POOLE Active [facility] 12/07/2024 Active Type 2 diabetes mellitus without complication, unspecified whether fpc insulin use (HCC) / E11.9(ICD-10) NICOLE POOLEI Active [facility] 12/07/2024 Active Age-related cogn itive decline / R41.81(ICD-10) [facility] Gastroesophageal reflux disease, unspecified whether esophagitis present / K21.9(ICD-10) [facility] S/P TAVR (transcatheter aortic valve replacement) / Z95.2(ICD-10) [facility] Active S/P CABG ([place] artery bypass graft) / Z95.1(ICD-10) [facility] Active Encounter for immunization / Z23(ICD-10) GISELA [facility] 10/12/2024 Active Screening for co samantha cancer / Z12.11(ICD-10) MI POOLE [facility] 11/05/2023 Admitting Diagnosis 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(ICD-10) ELIZABETH ORTIZ Active [facility] 09/11/2023 Admitting Diagnosis Nonrheumatic aortic (valve) stenosis / I35.0(ICD-10) DIANA ELIZABETH Active [facility] 08/05/2023 Admitting Diagnosis Essential (primary) hypertension / I10(ICD-10) DIANA ELIZABETH Active [facility] 09/10/2024 Admitting Diagnosis Presence of prosthetic heart valve / Z95.2(ICD-10) SAM RAYMOND Active [facility] 07/25/2024 Active Herpes zoster wi thout complications / B02.9(ICD-10) PB DASILVA [facility] 11/13/2021 Active Type 2 diabetes mellitus without complication, with long-term current use of insulin (HCC) / E11.9(ICD-10) NA Active [facility] 11/13/2021 Active Type 2 diabetes mellitus without complication, with long-term current use of insulin (HCC) / Z79.4(ICD-10) NA Active [facility] 03/08/2015 Active Mixed hyperlipid emia / E78.2(ICD-10) NA Active [facility] 03/08/2015 Active Essential hypert ension / I10(ICD-10) NA [facility] 03/10/2024 Active Vitamin D defici ency / E55.9(ICD-10) NA Active [facility] PROCEDURES No Procedure Records Found RESULTS PROGRESS Observed: 12/07/2024 11:41 AM Status: COMPLETED Source: [facility] HNO ID: [id number] Author: MI POOLE APRN.CREDIT RISK MANAGER Service: ? Author Type: Nurse Specialist Type: Progress Notes Filed: 12/07/2024 12:34 Note Text: Magnolia Fisher is a 84 year old female here for a Medicare wellness visit. Medicare Health Risk Assessment General Health Very good Exercise: Minutes/Day 10 min Exercise: Days/Week 1 day Alcohol: Daily Use Never Alcohol: Drinks/Day Patient does not drink Alcohol: 6 or more drinks Never Feel off balance No Concerns: Teeth/Dentures No Concerns: Sexual function No Troubled by feelings Anxious; Stressed Frequency: Eating healthy diet Nearly every day ADLs requiring help None of the above Safety precautions in home/vehicle Yes Smoke, vape, chews tobacco No Difficulty hearing Yes Difficulty seeing No Current Providers Specialists: I have reviewed specialist-related care of the patient in the medical record. Dr[facility]. Podiatry Dr. Romeo [facility]/Family history review Reviewed and updated problem list, medical/surgical/family/social history, medications, and allergies. Opioid use review Opioid Medications (last 90 days) No data to display Anxiety/Depression screening PHQ-2 Score: 3 (Higher risk for depression. PHQ-9 Recommended) SYLWIA-2 Score: 2 (Lower risk for anxiety) Recommendation: no further intervention at this time Cognitive screening Mini Cog Score: 3 Cognitive screening reviewed and No further action needed (score 3-5). Functional Observation Was the patient's Timed Up AND Go test unsteady or >= 12 seconds? No Advance Care Planning Surrogate decision maker and/or advance care plan documented Daughter Nicole The patient is an 84-year-old female with diabetes mellitus on insulin, presenting for a Medicare annual wellness visit. Medicare Wellness Visit: - Magnolia Fisher accompanied by daughter. - Recent hemoglobin A1c checked in September. - Has a living will; daughter is designated to speak on her behalf if needed. - Magnolia has not seen a dentist since her 4 years ago; reports a chipped tooth. - Magnolia has not seen an ENT specialist yet; plans to schedule an appointment. - Magnolia has difficulty hearing; believes she needs hearing aids. - Sees Dr. Hoyos and has an upcoming appointment in late fall. - Sees Dr. Walters for foot care. - Reports memory issues, particularly with names; writes everything down to remember. - Spends most of her time at home, occasionally sees neighbors when walking. - Used to walk her dog regularly, but the dog has . - Watches TV but finds the news depressing. Diabetes: - Monitors blood glucose levels at home; reports good control. - Recent low blood glucose reading of 90 mg/dL; took glucose tablets. - No longer feels shaky during hypoglycemic episodes. - Takes 20 units of insulin at night and 6 units with meals. Anxiety: - Experiencing anxiety due to recent events, including a two-week process of deciding whether to remove a walnut tree in her backyard. - Does not want medication or counseling for anxiety; believes she can manage it herself. - Concerned about medications causing daytime sleepiness. Sleep Disturbance: - Reports difficulty sleeping, waking up around 04:00. - Goes to bed around 21:00, getting approximately 7 hours of sleep. - Believes insulin may affect her sleep. Measurements BP 134/72 Pulse 65 Resp 16 Ht 150 cm (4' 11.06) Wt 64.4 kg (141 lb 15.6 oz) SpO2 99% BMI 28.62 kg/m? Vision Screening: Follows with optometry/ophthalmology Latest Ref Rng 03/10/2024 07/10/2024 10/01/2024 Protein, Total 6.3 - 8.0 g/dL 6.7 6.6 Albumin 3.9 - 4.9 g/dL 4.1 4.0 Calcium 8.5 - 10.2 mg/dL 9.4 10.0 Bilirubin, Total 0.2 - 1.3 mg/dL 1.2 1.0 Alkaline Phosphatase 34 - 123 U/L 121 104 AST 13 - 35 U/L 37 (H) 31 ALT 7 - 38 U/L 25 16 Glucose 74 - 99 mg/dL 110 (H) 85 BUN 7 - 21 mg/dL 10 15 Creatinine 0.58 - 0.96 mg/dL 0.62 0.65 Sodium 136 - 144 mmol/L 138 138 Potassium 3.7 - 5.1 mmol/L 4.3 5.0 Chloride 98 - 107 mmol/L 100 101 CO2 22 - 30 mmol/L 29 27 Anion Gap 8 - 15 mmol/L 9 10 eGFR >=60 mL/min/1.73m? 90 88 WBC 3.70 - 11.00 k/uL 8.43 7.59 RBC 3.90 - 5.20 m/uL 4.15 4.07 Hemoglobin 11.5 - 15.5 g/dL 13.8 13.3 Hematocrit 36.0 - 46.0 % 42.1 41.6 MCV 80.0 - 100.0 fL 101.4 (H) 102.2 (H) MCH 26.0 - 34.0 pg 33.3 32.7 MCHC 30.5 - 36.0 g/dL 32.8 32.0 RDW-CV 11.5 - 15.0 % 12.2 13.3 Platelet Count 150 - 400 k/uL 227 240 MPV 9.0 - 12.7 fL 10.9 11.1 Absolute nRBC <0.01 k/uL <0.01 <0.01 Cholesterol, Total <200 mg/dL 111 Triglyceride <150 mg/dL 49 HDL Cholesterol >39 mg/dL 59 Non HDL Cholesterol <130 mg/dL 52 Fasting Time hrs 12 VLDL Cholesterol <30 mg/dL 10 TC:HDL Ratio <5.10 1.88 LDL Cholesterol, Calculated <100 mg/dL 42 LDL:HDL Ratio <2.54 0.71 Creatinine, Ur Random (UCRR) 20.0 - 300.0 mg/dL 29.1 28.5 Albumin, Urine Random mg/L <12.0 <12.0 Hemoglobin A1C 4.3 - 5.6 % 6.8 (H) 6.1 (H) Estimated Average Glucose mg/dL 148 128 Occult Blood, Stool Negative Negative Negative Vitamin D 25 Hydroxy 31.0 - 80.0 ng/mL 58.2 45.9 Hemoglobin A1C (POCT) 4.3 - 5.6 % 7.1 ! Assessment/Plan Medicare annual wellness visit, subsequent (Z00.00) - Counseled on healthy diet and regular exercise - Fall avoidance information provided - Personalized prevention plan provided 1. Medicare annual wellness visit, subsequent (Z00.00) - Completed annual wellness visit. - Discussed advance directives; patient has a living will and daughter Nicole as healthcare proxy. - Discussed current specialists and upcoming appointments. - Follow-up in 4 months with lab work prior to next visit. 2. Encounter for immunization (Z23) - Recommended influenza vaccine; patient agreed to receive today. - Discussed COVID-19 booster; patient received last dose in the fall and may obtain next booster at local pharmacy. 3. Encounter for screening examination for other mental health and behavioral disorders (Z13.39) 4. Age-related cognitive decline (R41.81) - Ongoing memory concerns; reports difficulty with names and occasional forgetfulness. - Discussed in-depth memory testing; order placed, to schedule when ready. - Discussed potential benefits of addressing anxiety/depression and hearing loss on cognitive function. - Discussed neuropsych testing and referral to Dr. Bustillos (geriatrics) as an option. 5. Hearing loss, unspecified hearing loss type, unspecified laterality (H91.90) - reports variable hearing; discussed possible need for hearing aids. - Order placed for hearing test; patient to schedule when ready. 6. 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 - Patient uses continuous glucose monitor and manages hypoglycemia with glucose tablets. - Continue current insulin regimen: 20 units at night, 6 units with meals. - Next HbA1c in 4 months prior to follow-up visit. Mi Poole APRN.CREDIT RISK MANAGER CNOV Observed: 12/07/2024 11:40 AM Status: COMPLETED Source: [facility] Office Visit (INTMWS) MAGNOLIA FISHER ([id number]) 1940 F CHT Date Time Provider Department 12/07/24 11:40 AM MI POOLE INTMWS During your visit today, we recorded the following information about you: Pulse Respiration Blood pressure Weight 65/minute 16/minute 134/72 64.4 kg Height 1.5 m Mi Poole APRN.CREDIT RISK MANAGER 12/07/2024 12:34 PM Signed Magnolia Fisher is a 84 year old female here for a Medicare wellness visit. Medicare Health Risk Assessment General Health Very good Exercise: Minutes/Day 10 min Exercise: Days/Week 1 day Alcohol: Daily Use Never Alcohol: Drinks/Day Patient does not drink Alcohol: 6 or more drinks Never Feel off balance No Concerns: Teeth/Dentures No Concerns: Sexual function No Troubled by feelings Anxious; Stressed Frequency: Eating healthy diet Nearly every day ADLs requiring help None of the above Safety precautions in home/vehicle Yes Smoke, vape, chews tobacco No Difficulty hearing Yes Difficulty seeing No Current Providers Specialists: I have reviewed specialist-related care of the patient in the medical record. Dr[facility]. Podiatry Dr. Romeo [facility]/Family history review Reviewed and updated problem list, medical/surgical/family/social history, medications, and allergies. Opioid use review Opioid Medications (last 90 days) No data to display Anxiety/Depression screening PHQ-2 Score: 3 (Higher risk for depression. PHQ-9 Recommended) SYLWIA-2 Score: 2 (Lower risk for anxiety) Recommendation: no further intervention at this time Cognitive screening Mini Cog Score: 3 Cognitive screening reviewed and No further action needed (score 3-5). Functional Observation Was the patient's Timed Up AND Go test unsteady or >= 12 seconds? No Advance Care Planning Surrogate decision maker and/or advance care plan documented Daughter Nicole The patient is an 84-year-old female with diabetes mellitus on insulin, presenting for a Medicare annual wellness visit. Medicare Wellness Visit: - Magnolia Fisher accompanied by daughter. - Recent hemoglobin A1c checked in September. - Has a living will; daughter is designated to speak on her behalf if needed. - Magnolia has not seen a dentist since her 4 years ago; reports a chipped tooth. - Magnolia has not seen an ENT specialist yet; plans to schedule an appointment. - Magnolia has difficulty hearing; believes she needs hearing aids. - Sees Dr. Hoyos and has an upcoming appointment in late fall. - Sees Dr. Walters for foot care. - Reports memory issues, particularly with names; writes everything down to remember. - Spends most of her time at home, occasionally sees neighbors when walking. - Used to walk her dog regularly, but the dog has . - Watches TV but finds the news depressing. Diabetes: - Monitors blood glucose levels at home; reports good control. - Recent low blood glucose reading of 90 mg/dL; took glucose tablets. - No longer feels shaky during hypoglycemic episodes. - Takes 20 units of insulin at night and 6 units with meals. Anxiety: - Experiencing anxiety due to recent events, including a two-week process of deciding whether to remove a walnut tree in her backyard. - Does not want medication or counseling for anxiety; believes she can manage it herself. - Concerned about medications causing daytime sleepiness. Sleep Disturbance: - Reports difficulty sleeping, waking up around 04:00. - Goes to bed around 21:00, getting approximately 7 hours of sleep. - Believes insulin may affect her sleep. Measurements BP 134/72 Pulse 65 Resp 16 Ht 150 cm (4' 11.06) Wt 64.4 kg (141 lb 15.6 oz) SpO2 99% BMI 28.62 kg/m? Vision Screening: Follows with optometry/ophthalmology Latest Ref Rng 03/10/2024 07/10/2024 10/01/2024 Protein, Total 6.3 - 8.0 g/dL 6.7 6.6 Albumin 3.9 - 4.9 g/dL 4.1 4.0 Calcium 8.5 - 10.2 mg/dL 9.4 10.0 Bilirubin, Total 0.2 - 1.3 mg/dL 1.2 1.0 Alkaline Phosphatase 34 - 123 U/L 121 104 AST 13 - 35 U/L 37 (H) 31 ALT 7 - 38 U/L 25 16 Glucose 74 - 99 mg/dL 110 (H) 85 BUN 7 - 21 mg/dL 10 15 Creatinine 0.58 - 0.96 mg/dL 0.62 0.65 Sodium 136 - 144 mmol/L 138 138 Potassium 3.7 - 5.1 mmol/L 4.3 5.0 Chloride 98 - 107 mmol/L 100 101 CO2 22 - 30 mmol/L 29 27 Anion Gap 8 - 15 mmol/L 9 10 eGFR >=60 mL/min/1.73m? 90 88 WBC 3.70 - 11.00 k/uL 8.43 7.59 RBC 3.90 - 5.20 m/uL 4.15 4.07 Hemoglobin 11.5 - 15.5 g/dL 13.8 13.3 Hematocrit 36.0 - 46.0 % 42.1 41.6 MCV 80.0 - 100.0 fL 101.4 (H) 102.2 (H) MCH 26.0 - 34.0 pg 33.3 32.7 MCHC 30.5 - 36.0 g/dL 32.8 32.0 RDW-CV 11.5 - 15.0 % 12.2 13.3 Platelet Count 150 - 400 k/uL 227 240 MPV 9.0 - 12.7 fL 10.9 11.1 Absolute nRBC <0.01 k/uL <0.01 <0.01 Cholesterol, Total <200 mg/dL 111 Triglyceride <150 mg/dL 49 HDL Cholesterol >39 mg/dL 59 Non HDL Cholesterol <130 mg/dL 52 Fasting Time hrs 12 VLDL Cholesterol <30 mg/dL 10 TC:HDL Ratio <5.10 1.88 LDL Cholesterol, Calculated <100 mg/dL 42 LDL:HDL Ratio <2.54 0.71 Creatinine, Ur Random (UCRR) 20.0 - 300.0 mg/dL 29.1 28.5 Albumin, Urine Random mg/L <12.0 <12.0 Hemoglobin A1C 4.3 - 5.6 % 6.8 (H) 6.1 (H) Estimated Average Glucose mg/dL 148 128 Occult Blood, Stool Negative Negative Negative Vitamin D 25 Hydroxy 31.0 - 80.0 ng/mL 58.2 45.9 Hemoglobin A1C (POCT) 4.3 - 5.6 % 7.1 ! Assessment/Plan Medicare annual wellness visit, subsequent (Z00.00) - Counseled on healthy diet and regular exercise - Fall avoidance information provided - Personalized prevention plan provided 1. Medicare annual wellness visit, subsequent (Z00.00) - Completed annual wellness visit. - Discussed advance directives; patient has a living will and daughter Nicole as healthcare proxy. - Discussed current specialists and upcoming appointments. - Follow-up in 4 months with lab work prior to next visit. 2. Encounter for immunization (Z23) - Recommended influenza vaccine; patient agreed to receive today. - Discussed COVID-19 booster; patient received last dose in the fall and may obtain next booster at local pharmacy. 3. Encounter for screening examination for other mental health and behavioral disorders (Z13.39) 4. Age-related cognitive decline (R41.81) - Ongoing memory concerns; reports difficulty with names and occasional forgetfulness. - Discussed in-depth memory testing; order placed, to schedule when ready. - Discussed potential benefits of addressing anxiety/depression and hearing loss on cognitive function. - Discussed neuropsych testing and referral to Dr. Bustillos (geriatrics) as an option. 5. Hearing loss, unspecified hearing loss type, unspecified laterality (H91.90) - reports variable hearing; discussed possible need for hearing aids. - Order placed for hearing test; patient to schedule when ready. 6. 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 - Patient uses continuous glucose monitor and manages hypoglycemia with glucose tablets. - Continue current insulin regimen: 20 units at night, 6 units with meals. - Next HbA1c in 4 months prior to follow-up visit. Mi Poole APRN.Mi Ramirez APRN.NICHOLAS 12/07/2024 12:14 PM Addendum - Flu vaccine given today. - Lab work (including HbA1c) ordered for about four months from your last check; you?ll see the open lab orders in [facility] or on your paperwork. Call the clinic?s main number when you?re ready to schedule. - Referral placed for an in-depth memory (cognitive) test; this order is good for one year. You can schedule it by calling the clinic?s main number. [phone] - Referral placed for a formal hearing test; this order is also good for one year. You can schedule it by calling the clinic?s main number. - Consider limiting TV news to reduce stress or low mood. Try reading headlines on your smartphone from sources like [employer], [employer], PBS, or NPR instead. Screening schedule The following prevention plan is recommended: Shingrix Vaccine(2 of 3) due on 11/19/2012 Medicare Advantage Annual Wellness Visit Never done Influenza Vaccine(1) due on 11/30/2024 Anxiety Screening due on 12/30/2024 WHAT YOU CAN DO TO PREVENT FALLS Many falls can be prevented. By making some changes, you can lower your chances of falling. Four things YOU can do to prevent falls for you* and your caregiver 1. Begin a regular exercise program Exercise is one of the most important ways to lower your chances of falling. It makes you stronger and helps you feel better. Exercises that improve balance and coordination (like Bryson Chi) are the most helpful. Lack of exercise leads to weakness and increases your chances of falling. Ask your doctor or health care provider about the best type of exercise program for you. 2. Have your health care provider review your medicines Have your doctor or pharmacist review all the medicines you take, even [id number] medicines. As you get older, the way medicines work in your body can change. Some medicines, or combinations of medicines, can make you sleepy or dizzy and can cause you to fall. 3. Have your vision checked Have your eyes checked by an eye doctor at least once a year. You may be wearing the wrong glasses or have a condition like glaucoma or cataracts that limits your vision. Poor vision can increase your chances of falling. 4. Make your home safer About half of all falls happen at home. To make your home safer: Remove things you can trip over (like papers, books, clothes, and shoes) from stairs and places where you walk. Remove small throw rugs or use double-sided tape to keep the rugs from slipping. Keep items you use often in cabinets you can reach easily without using a step stool. Have grab bars put in next to your toilet and in the tub or shower. Use non-slip mats in the bathtub and on shower floors. Improve the lighting in your home. As you get older, you need brighter lights to see well. Hang light-weight curtains or shades to reduce glare. Have handrails and lights put in on all staircases. Wear shoes both inside and outside the house. Avoid going barefoot or wearing slippers. For more information, contact: Centers for Disease Control and Prevention www.cdc.gov/injury * This information may not apply if you have certain medical conditions. Allergies As of Date: 12/07/2024 Noted Allergy Reaction LISINOPRIL 06/06/2011 3 - Cough Comments: Resolved after stopped medication REMERON (MIRTAZAPINE) 11/13/2021 14 - Other: See Comments Comments: Contributed to trouble with memory. Also caused anxiety and irritability SEASONAL ALLERGIES 06/26/2013 14 - Other: See Comments Comments: wheezing Date Reviewed: 12/07/2024 Reviewed by: Rox Madrigal LPN - Fully Assessed Reason for Visit: Medicare Wellness Exam [4060] Primary Visit Diagnosis:Medicare annual wellness visit, subsequent [Z00.00] Other Visit Diagnoses:Encounter for immunization [Z23] Encounter for screening examination for other mental health and behavioral disorders [Z13.39] Hearing loss, unspecified hearing loss type, unspecified laterality [H91.90] Type 2 diabetes mellitus without complication, unspecified whether fpc insulin use (HCC) [E11.9] Age-related cognitive decline [R41.81] Order(s):INFLUENZA VACCINE, PRSV FREE, AGE 65+ YR, HIGH DOSE, TRIVALENT (FLUZONE HIGH-DOSE) [89076MTM] Order #: [id number] ANXIETY SCREENING [[id number]] Order #: [id number]: 1 NEUROPSYCHOLOGICAL TESTING CONSULT [6464084] Order #: [id number]: 1 Prescriptions as of 12/07/2024 - insulin lispro (HUMALOG KWIKPEN INSULIN) 100 unit/mL Take 6 units prior to breakfast, 6 units prior to lunch, and 6 units prior to dinner. Max 18 units/day. ENROLLED IN [employer] PAP - metoprolol succinate ER (TOPROL XL) 100 mg Take 1 tablet by mouth once daily. - losartan (COZAAR) 50 mg tablet Take 1 tablet by mouth once daily. - atorvastatin (LIPITOR) 40 mg tablet Take 1 tablet by mouth once daily. - Insulin Forbes, Disposable, (EASY COMFORT PEN NEEDLES) 32 gauge x 5/32 Use to inject insulin four times daily - Blood-Glucose Sensor (FREESTYLE MARYANN 3 SENSOR) maynor Apply new sensor every fourteen (14) days to upper arm. - blood sugar diagnostic (FREESTYLE PRECISION LORRIE STRIPS) test strip Pt tests approx 4 times after putting on new sensor if close or normal. If not may do more often. - insulin glargine (LANTUS SOLOSTAR U-100 INSULIN) 100 unit/mL (3 mL) Inject 20 Units subcutaneously daily at bedtime. - Blood-Glucose Meter,Continuous (FREESTYLE MARYANN 3 READER) misc Use to check blood sugar at least four (4) times daily. - cycloSPORINE (RESTASIS) 0.05 % ophthalmic emulsion Use 1 Drop in both eyes two times a day. (Dr. Candelaria--started 2 weeks ago) - potassium chloride ER (KLOR-CON) 20 mEq tablet - clopidogrel (PLAVIX) 75 mg tablet Take 75 mg by mouth once daily. - vit A/vit C/vit E/zinc/copper (PRESERVISION AREDS ORAL) Take by mouth twice daily. - aspirin, enteric coated (ASPIRIN, ENTERIC COATED) 81 mg EC tablet Take 81 mg by mouth once daily. - hdpcbpgw-bbn-ztas-FA-lutein (CENTRUM SILVER WOMEN) 8 mg iron-400 mcg-300 mcg tab Take 1 tablet by mouth daily - Lancets lancets Test blood sugar(s) 3 times daily. Dx: Type 2 DM - Controlled E11.65 Insulin: Yes - nitroglycerin sublingual (NITROQUICK) 0.4 mg SL tablet Dissolve 0.4 mg under the tongue as needed. If no pain relief call 911. Dr. Hoyos. - vitamin b complex tab Take 1 tablet by mouth once daily. - Cholecalciferol, Vitamin D3, 2,000 unit Tab Take 1 capsule by mouth one time daily - albuterol HFA (PROAIR HFA) 90 mcg/actuation inhaler Inhale 2 Puffs as instructed every 4 hours as needed. Meds Comments as of 08/30/2010: Problem List As Of Date 12/07/2024 Noted Resolved MYALGIA AND MYOSITIS NOS [[id number]] Mixed hyperlipidemia [E78.2] Essential hypertension [I10] Class 1 obesity due to excess calories with ser* 02/13/2021 CERVICAL DISC DEGEN [M50.30] 01/23/2006 Type 2 diabetes mellitus, uncontrolled [[id number]]01/23/2006 05/14/2022 Cervical radiculopathy [[id number]] 01/23/2006 ESOPHAGEAL REFLUX [K21.9] 07/29/2006 RETINAL HEMORRHAGE [H35.60] 02/27/2007 BONE AND CARTILAGE DIS NOS [M89.9, M94.9] 05/27/2007 Acute gastritis without mention of hemorrhage [*04/04/2010 05/14/2022 Diaphragmatic hernia without mention of obstruc*04/04/2010 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 - Lab work (including HbA1c) ordered for about four months from your last check; you?ll see the open lab orders in [employer] or on your paperwork. Call the clinic?s main number when you?re ready to schedule. - Referral placed for an in-depth memory (cognitive) test; this order is good for one year. You can schedule it by calling the clinic?s main number. [phone] - Referral placed for a formal hearing test; this order is also good for one year. You can schedule it by calling the clinic?s main number. - Consider limiting TV news to reduce stress or low mood. Try reading headlines on your smartphone from sources like [employer], [employer], [employer], or NPR instead. Screening schedule The following prevention plan is recommended: Shingrix Vaccine(2 of 3) due on 11/19/2012 Medicare Advantage Annual Wellness Visit Never done Influenza Vaccine(1) due on 11/30/2024 Anxiety Screening due on 12/30/2024 WHAT YOU CAN DO TO PREVENT FALLS Many falls can be prevented. By making some changes, you can lower your chances of falling. Four things YOU can do to prevent falls for you* and your caregiver 1. Begin a regular exercise program Exercise is one of the most important ways to lower your chances of falling. It makes you stronger and helps you feel better. Exercises that improve balance and coordination (like Bryson Chi) are the most helpful. Lack of exercise leads to weakness and increases your chances of falling. Ask your doctor or health care provider about the best type of exercise program for you. 2. Have your health care provider review your medicines Have your doctor or pharmacist review all the medicines you take, even wddu-ymc-qyxzsox medicines. As you get older, the way medicines work in your body can change. Some medicines, or combinations of medicines, can make you sleepy or dizzy and can cause you to fall. 3. Have your vision checked Have your eyes checked by an eye doctor at least once a year. You may be wearing the wrong glasses or have a condition like glaucoma or cataracts that limits your vision. Poor vision can increase your chances of falling. 4. Make your home safer About half of all falls happen at home. To make your home safer: Remove things you can trip over (like papers, books, clothes, and shoes) from stairs and places where you walk. Remove small throw rugs or use double-sided tape to keep the rugs from slipping. Keep items you use often in cabinets you can reach easily without using a step stool. Have grab bars put in next to your toilet and in the tub or shower. Use non-slip mats in the bathtub and on shower floors. Improve the lighting in your home. As you get older, you need brighter lights to see well. Hang light-weight curtains or shades to reduce glare. Have handrails and lights put in on all staircases. Wear shoes both inside and outside the house. Avoid going barefoot or wearing slippers. For more information, contact: Centers for Disease Control and Prevention www.cdc.gov/injury * This information may not apply if you have certain medical conditions. Level of Service: CARLENESCARLOS VISIT [G0439] Disposition: Return in 1 year (on 12/07/2025) for Medicare Wellness Visit. Follow-up and Disposition History for Encounter Date Provider Department Center 12/07/2024 [id number] POOLEWS [facility] Encounter Status:Closed by MI POOLE on 12/07/24 CNOV Observed: 12/03/2024 9:00 AM Status: COMPLETED Source: [facility] Office Visit (PHMEWO) PHILLIPMAGNOLIA Cooper ([id number]) 1940 F T Date Time Provider Department 12/03/24 9:00 AM JOANIE STONE MEWO During your visit today, we recorded the following information about you: Joanie Stone RPh 12/03/2024 9:28 AM Signed Primary Care Pharmacy Visit CC (Reason for Consult): (E11.9, Z79.4) Type 2 diabetes mellitus without complication, with long-term current use of insulin (HCC) (primary encounter diagnosis) Goal(s): A1c <8% Last Collaborating Provider Visit: 10/12/24 with NICHOLAS Vogt Phillip is a 84 year old female presenting for follow up visit in person. Patient consents to pharmacy collaborative practice agreement. Last Pharmacy Visit: 09/03/24 Interim Events: - 10/01/24 A1c results: 6.1% HPI: Here with daughter Nicole Reports doing well Starting to understand why she has high blood sugars, sometimes food or other things Reports has had a couple low blood sugars this past week, not sure why it dropped Doesn't take any Humalog with the protein shake anymore; however, if she's not hungry and skips her meal she still takes her Humalog dose at that time Has good supply of insulins (through PAP) Current DM Medications: Basaglar 20 units once daily every evening Humalog 6 units three times daily before meals Previously Trialed DM Meds: Basaglar Metformin Jardiance - cost Invokana Diet Denies any recent changes Eats about the same things every day Not as active as much lately GLYCEMIC CONTROL: Glucometer present at visit: Yes - Maryann 3 reader Hypoglycemia: Yes CGM Data Past medical history reviewed. ALLERGIES Allergen Reactions Lisinopril Cough Resolved after stopped medication Remeron [Mirtazapin* Other: See Comments Contributed to trouble with memory. Also caused anxiety and irritability Seasonal Allergies Other: See Comments wheezing Current Outpatient Medications Medication Sig Dispense Refill metoprolol succinate ER (TOPROL XL) 100 mg Take 1 tablet by mouth once daily. 90 tablet 3 losartan (COZAAR) 50 mg tablet Take 1 tablet by mouth once daily. 90 tablet 3 atorvastatin (LIPITOR) 40 mg tablet Take 1 tablet by mouth once daily. 90 tablet 3 Insulin Forbes, Disposable, (EASY COMFORT PEN NEEDLES) 32 gauge x 5/32 Use to inject insulin four times daily 400 each 3 Blood-Glucose Sensor (FREESTYLE MARYANN 3 SENSOR) maynor Apply new sensor every fourteen (14) days to upper arm. 6 each 4 blood sugar diagnostic (FREESTYLE PRECISION LORRIE STRIPS) test strip Pt tests approx 4 times after putting on new sensor if close or normal. If not may do more often. 50 Each 0 insulin lispro (HUMALOG KWIKPEN INSULIN) 100 unit/mL Take 6 units prior to breakfast, 6 units prior to lunch, and 6 units prior to dinner. If replacing meal with a protein shake, take 4 units with shake. Max 18 units/day. [facility] P[facility] 30 mL 3 insulin glargine (LANTUS SOLOSTAR U-100 INSULIN) 100 unit/mL (3 mL) Inject 20 Units subcutaneously daily at bedtime. 15 mL 1 Blood-Glucose Meter,Continuous (FREESTYLE MARYANN 3 READER) [facility] Use to check blood sugar at least four (4) times daily. 1 Each 0 cycloSPORINE (RESTASIS) 0.05 % ophthalmic emulsion Use 1 Drop in both eyes two times a day. (Dr. Candelaria--started 2 weeks ago) potassium chloride ER (KLOR-CON) 20 mEq tablet clopidogrel (PLAVIX) 75 mg tablet Take 75 mg by mouth once daily. vit A/vit C/vit E/zinc/copper (PRESERVISION AREDS ORAL) Take by mouth twice daily. aspirin, enteric coated (ASPIRIN, ENTERIC COATED) 81 mg EC tablet Take 81 mg by mouth once daily. kykxcubr-lgj-sceb-FA-lutein (CENTRUM SILVER WOMEN) 8 mg iron-400 mcg-300 mcg tab Take 1 tablet by mouth daily Lancets lancets Test blood sugar(s) 3 times daily. Dx: Type 2 DM - Controlled E11.65 Insulin: Yes 400 Each 3 nitroglycerin sublingual (NITROQUICK) 0.4 mg SL tablet Dissolve 0.4 mg under the tongue as needed. If no pain relief call 911. Dr. Hoyos. 0 vitamin b complex tab Take 1 tablet by mouth once daily. 0 Cholecalciferol, Vitamin D3, 2,000 unit Tab Take 1 capsule by mouth one time daily 0 albuterol HFA (PROAIR HFA) 90 mcg/actuation inhaler Inhale 2 Puffs as instructed every 4 hours as needed. 3 Inhaler 1 No current facility-administered medications for this visit. Pill bottles are not present. Adherence: denies missed doses. Rx coverage: Payor: HUMANA MEDICARE / Plan: HUMANA MEDICARE PPO / Product Type: PPO / Medications affordable? Yes Enrolled in [employer] (Basaglar and Humalog) Patient Assistance Programs being utilized: [employer] Medication Status Renewal Due Where Delivered [employer] Culture Communication Basaglar Approved 03/31/25 Patient Home [employer] Culture Communication Humalog U100 Approved 03/31/25 Patient Home PHARMACOTHERAPY PREVENTATIVE MEDS: On ANGELA/ARB: Yes On Statin: Yes On ASA: Yes EXAM: There were no vitals taken for this visit. Last 3 Encounter BP Readings: Date: BP: 10/12/2024 130/60 07/25/2024 136/73 07/10/2024 110/60 Wt: 65.7 kg (144 lb 13.5 oz) BMI: 28.07 kg/(m2) LABS: Lab Results Component Value Date HBA1C 6.1 10/01/2024 HBA1C 7.1 07/10/2024 HBA1C 6.8 03/10/2024 HBA1C 7.0 12/31/2023 HBA1C 6.6 06/05/2023 HBA1C 7.6 05/13/2021 HBA1C 9.0 08/06/2020 HBA1C 8.1 04/03/2018 Glucose 85 10/01/2024 BUN 15 10/01/2024 Creatinine 0.65 10/01/2024 Sodium 138 10/01/2024 Potassium 5.0 10/01/2024 Chloride 101 10/01/2024 CO2 27 10/01/2024 Protein, Total 6.6 10/01/2024 Albumin 4.0 10/01/2024 Calcium 10.0 10/01/2024 Alkaline Phosphatase 104 10/01/2024 Bilirubin, Total 1.0 10/01/2024 AST 31 10/01/2024 ALT 16 10/01/2024 Lab Results Component Value Date CHOL 111 03/10/2024 CHOL 133 05/13/2021 LDL 42 03/10/2024 LDL 43 11/13/2021 LDL 56 05/13/2021 HDL 59 03/10/2024 HDL 58 05/13/2021 TG 49 03/10/2024 TG 95 05/13/2021 Albumin/Creat Ratio (mg/g) Date Value 02/11/2023 <20 eGFR-All Other Races (.) Date Value 05/13/2021 >60 Estimated Glomerular Filtration Rate (mL/min/1.73m?) Date Value 10/01/2024 88 ASSESSMENT/PLAN: 1. Type 2 diabetes mellitus without complication, with long-term current use of insulin ([facility]) - ICD9: 250.00, V58.67, ICD10: E11.9, Z79.4 - Controlled - Continue current medications - Instructed patient to skip dose of Humalog if skipping a meal - Statin prescribed - atorvastatin - Blood glucose monitoring on a continuous glucose monitoring schedule - Counseled on healthy diet and regular exercise - Discussed diabetic education issues of hypoglycemic/hyperglycemic symptoms - Follow up in 3 months per patient preference, sooner should any other issues arise. Overdue Diabetes Health Maintenance: Up to date on diabetes-related health maintenance Follow Up: Next PCP visit: 12/07/24 Next PharmD visit: 03/04/25 Joanie Stone, PharmD, BCACP Primary Care Clinical Cementer Machine Joiner I spent a total of 25 minutes on the date of the service which included preparing to see the patient, rngy-lt-ocbr patient care, completing clinical documentation, and counseling and educating the patient/family/caregiver. Joanie Stone RPh 12/03/2024 9:23 AM Addendum Continue Basaglar 20 units once daily every evening and Humalog 6 units before meals Skip your dose of Humalog if you are skipping your meal It was wonderful to see you today! Please see below for a summary of the information we discussed. Additionally, please feel free to call the office ([phone]) or send me a Ocelus message, if needed between appointments. If you feel I or any of your other caregivers have exceeded your expectations, please consider submitting your recognition through caregiverCrowdrally Thank you, Joanie Stone, PharmD, BCACP Primary Care Pharmacist Referring Provider: SELF [[id number]] Allergies As of Date: 12/03/2024 Noted Allergy Reaction LISINOPRIL 06/06/2011 3 - Cough Comments: Resolved after stopped medication REMERON (MIRTAZAPINE) 11/13/2021 14 - Other: See Comments Comments: Contributed to trouble with memory. Also caused anxiety and irritability SEASONAL ALLERGIES 06/26/2013 14 - Other: See Comments Comments: wheezing Date Reviewed: 10/12/2024 Reviewed by: Rox Madrigal LPN - Fully Assessed Reason for Visit: Diabetes [34] Primary Visit Diagnosis:Type 2 diabetes mellitus without complication, with long-term current use of insulin (HCC) [E11.9, Z79.4] Order(s):insulin lispro (HUMALOG KWIKPEN INSULIN) 100 unit/mLTake 6 units prior to breakfast, 6 units prior to lunch, and 6 units prior to dinner. Max 18 units/day. ENROLLED IN [employer] PAPDisp: 30 mLRfl: 3 Prescriptions as of 12/03/2024 - insulin lispro (HUMALOG KWIKPEN INSULIN) 100 unit/mL Take 6 units prior to breakfast, 6 units prior to lunch, and 6 units prior to dinner. Max 18 units/day. ENROLLED IN [employer] PAP - metoprolol succinate ER (TOPROL XL) 100 mg Take 1 tablet by mouth once daily. - losartan (COZAAR) 50 mg tablet Take 1 tablet by mouth once daily. - atorvastatin (LIPITOR) 40 mg tablet Take 1 tablet by mouth once daily. - Insulin Forbes, Disposable, (EASY COMFORT PEN NEEDLES) 32 gauge x 5/32 Use to inject insulin four times daily - Blood-Glucose Sensor (FREESTYLE MARYANN 3 SENSOR) maynor Apply new sensor every fourteen (14) days to upper arm. - blood sugar diagnostic (FREESTYLE PRECISION LORRIE STRIPS) test strip Pt tests approx 4 times after putting on new sensor if close or normal. If not may do more often. - insulin glargine (LANTUS SOLOSTAR U-100 INSULIN) 100 unit/mL (3 mL) Inject 20 Units subcutaneously daily at bedtime. - Blood-Glucose Meter,Continuous (FREESTYLE MARYANN 3 READER) misc Use to check blood sugar at least four (4) times daily. - cycloSPORINE (RESTASIS) 0.05 % ophthalmic emulsion Use 1 Drop in both eyes two times a day. (Dr. Candelaria--started 2 weeks ago) - potassium chloride ER (KLOR-CON) 20 mEq tablet - clopidogrel (PLAVIX) 75 mg tablet Take 75 mg by mouth once daily. - vit A/vit C/vit E/zinc/copper (PRESERVISION AREDS ORAL) Take by mouth twice daily. - aspirin, enteric coated (ASPIRIN, ENTERIC COATED) 81 mg EC tablet Take 81 mg by mouth once daily. - ciprakuw-ixv-bmby-FA-lutein (CENTRUM SILVER WOMEN) 8 mg iron-400 mcg-300 mcg tab Take 1 tablet by mouth daily - Lancets lancets Test blood sugar(s) 3 times daily. Dx: Type 2 DM - Controlled E11.65 Insulin: Yes - nitroglycerin sublingual (NITROQUICK) 0.4 mg SL tablet Dissolve 0.4 mg under the tongue as needed. If no pain relief call 911. Dr. Hoyos. - vitamin b complex tab Take 1 tablet by mouth once daily. - Cholecalciferol, Vitamin D3, 2,000 unit Tab Take 1 capsule by mouth one time daily - albuterol HFA (PROAIR HFA) 90 mcg/actuation inhaler Inhale 2 Puffs as instructed every 4 hours as needed. Meds Comments as of 08/30/2010: Problem List As Of Date 12/03/2024 Noted Resolved MYALGIA AND MYOSITIS NOS [[id number]] Mixed hyperlipidemia [E78.2] Essential hypertension [I10] Class 1 obesity due to excess calories with ser* 02/13/2021 CERVICAL DISC DEGEN [M50.30] 01/23/2006 Type 2 diabetes mellitus, uncontrolled [[id number]]01/23/2006 05/14/2022 Cervical radiculopathy [[id number]] 01/23/2006 ESOPHAGEAL REFLUX [K21.9] 07/29/2006 RETINAL HEMORRHAGE [H35.60] 02/27/2007 BONE AND CARTILAGE DIS NOS [M89.9, M94.9] 05/27/2007 Acute gastritis without mention of hemorrhage [*04/04/2010 05/14/2022 Diaphragmatic hernia without mention of obstruc*04/04/2010 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] 05/22/2010 Sleep apnea [G47.30] 10/09/2011 Choledocholithiasis [K80.50] 04/07/2012 Chronic cholecystitis [K81.1] 04/07/2012 Gastroparesis [K31.84] 06/26/2013 Moderate aortic stenosis by prior echocardiogra*05/19/2018 Type 2 diabetes mellitus without complication, *11/13/2021 Secondary pulmonary arterial hypertension (HCC)*08/13/2022 Coronary artery disease involving [place] harris*08/13/2022 Other instructions from your clinician: Continue Basaglar 20 units once daily every evening and Humalog 6 units before meals Skip your dose of Humalog if you are skipping your meal It was wonderful to see you today! Please see below for a summary of the information we discussed. Additionally, please feel free to call the office ([phone]) or send me a Ocelus message, if needed between appointments. If you feel I or any of your other caregivers have exceeded your expectations, please consider submitting your recognition through [employer] Thank you, Joanie Stone PharmD, BCACP Primary Care Pharmacist Prescriptions ordered this encounter Disp Refills Start End INSULIN LISPRO (U-100) 100 UNIT/ML S* 30 mL 3 12/03/2024 Class: Med Update Cmt: Please contact Joanie Stone PharmD at [phone] with any questions regarding this script. Sig: Take 6 units prior to breakfast, 6 units prior to lunch, and 6 units prior to dinner. Max 18 units/day. ENROLLED IN [employer] PAP Medications Discontinued During This Encounter Prescriptions - insulin lispro (HUMALOG KWIKPEN INSULIN) 100 unit/mL (Discontinued) Take 6 units prior to breakfast, 6 units prior to lunch, and 6 units prior to dinner. If replacing meal with a protein shake, take 4 units with shake. Max 18 units/day. ENROLLED IN [employer] PAP Encounter Status:Closed by JOANIE STONE on 12/03/24 PROGRESS Observed: 12/03/2024 9:00 AM Status: COMPLETED Source: [facility] ID: [id number] Author: JOANIE STONE RPh Service: ? Author Type: Pharmacist Type: Progress Notes Filed: 12/03/2024 09:28 Note Text: Primary Care Pharmacy Visit CC (Reason for Consult): (E11.9, Z79.4) Type 2 diabetes mellitus without complication, with long-term current use of insulin (HCC) (primary encounter diagnosis) Goal(s): A1c <8% Last Collaborating Provider Visit: 10/12/24 with NICHOLAS Vogt Magnolia Fisher is a 84 year old female presenting for follow up visit in person. Patient consents to pharmacy collaborative practice agreement. Last Pharmacy Visit: 09/03/24 Interim Events: - 10/01/24 A1c results: 6.1% HPI: Here with daughter Nicole Reports doing well Starting to understand why she has high blood sugars, sometimes food or other things Reports has had a couple low blood sugars this past week, not sure why it dropped Doesn't take any Humalog with the protein shake anymore; however, if she's not hungry and skips her meal she still takes her Humalog dose at that time Has good supply of insulins (through PAP) Current DM Medications: Basaglar 20 units once daily every evening Humalog 6 units three times daily before meals Previously Trialed DM Meds: Basaglar Metformin Jardiance - cost Invokana Diet Denies any recent changes Eats about the same things every day Not as active as much lately GLYCEMIC CONTROL: Glucometer present at visit: Yes - Maryann 3 reader Hypoglycemia: Yes CGM Data Past medical history reviewed. ALLERGIES Allergen Reactions Lisinopril Cough Resolved after stopped medication Remeron [Mirtazapin* Other: See Comments Contributed to trouble with memory. Also caused anxiety and irritability Seasonal Allergies Other: See Comments wheezing Current Outpatient Medications Medication Sig Dispense Refill metoprolol succinate ER (TOPROL XL) 100 mg Take 1 tablet by mouth once daily. 90 tablet 3 losartan (COZAAR) 50 mg tablet Take 1 tablet by mouth once daily. 90 tablet 3 atorvastatin (LIPITOR) 40 mg tablet Take 1 tablet by mouth once daily. 90 tablet 3 Insulin Forbes, Disposable, (EASY COMFORT PEN NEEDLES) 32 gauge x 5/32 Use to inject insulin four times daily 400 each 3 Blood-Glucose Sensor (FREESTYLE MARYANN 3 SENSOR) maynor Apply new sensor every fourteen (14) days to upper arm. 6 each 4 blood sugar diagnostic (FREESTYLE PRECISION LORRIE STRIPS) test strip Pt tests approx 4 times after putting on new sensor if close or normal. If not may do more often. 50 Each 0 insulin lispro (HUMALOG KWIKPEN INSULIN) 100 unit/mL Take 6 units prior to breakfast, 6 units prior to lunch, and 6 units prior to dinner. If replacing meal with a protein shake, take 4 units with shake. Max 18 units/day. ENROLLED IN [employer] PAP 30 mL 3 insulin glargine (LANTUS SOLOSTAR U-100 INSULIN) 100 unit/mL (3 mL) Inject 20 Units subcutaneously daily at bedtime. 15 mL 1 Blood-Glucose Meter,Continuous (FREESTYLE MARYANN 3 READER) [facility] [place] Use to check blood sugar at least four (4) times daily. 1 Each 0 cycloSPORINE (RESTASIS) 0.05 % ophthalmic emulsion Use 1 Drop in both eyes two times a day. (Dr. Candelaria--started 2 weeks ago) potassium chloride ER (KLOR-CON) 20 mEq tablet clopidogrel (PLAVIX) 75 mg tablet Take 75 mg by mouth once daily. vit A/vit C/vit E/zinc/copper (PRESERVISION AREDS ORAL) Take by mouth twice daily. aspirin, enteric coated (ASPIRIN, ENTERIC COATED) 81 mg EC tablet Take 81 mg by mouth once daily. vyxfkurr-fam-tbcm-FA-lutein (CENTRUM SILVER WOMEN) 8 mg iron-400 mcg-300 mcg tab Take 1 tablet by mouth daily Lancets lancets Test blood sugar(s) 3 times daily. Dx: Type 2 DM - Controlled E11.65 Insulin: Yes 400 Each 3 nitroglycerin sublingual (NITROQUICK) 0.4 mg SL tablet Dissolve 0.4 mg under the tongue as needed. If no pain relief call 911. Dr. Hoyos. 0 vitamin b complex tab Take 1 tablet by mouth once daily. 0 Cholecalciferol, Vitamin D3, 2,000 unit Tab Take 1 capsule by mouth one time daily 0 albuterol HFA (PROAIR HFA) 90 mcg/actuation inhaler Inhale 2 Puffs as instructed every 4 hours as needed. 3 Inhaler 1 No current facility-administered medications for this visit. Pill bottles are not present. Adherence: denies missed doses. Rx coverage: Payor: HU[employer]NA MEDICARE / Plan: HU[employer]NA MEDICARE PPO / Product Type: PPO / Medications affordable? Yes Enrolled in [employer] (Basaglar and Humalog) Patient Assistance Programs being utilized: [employer] Medication Status Renewal Due Where Delivered [employer] Culture Communication Basaglar Approved 03/31/25 Patient Home [employer] Culture Communication Humalog U100 Approved 03/31/25 Patient Home PHARMACOTHERAPY PREVENTATIVE MEDS: On ANGELA/ARB: Yes On Statin: Yes On ASA: Yes EXAM: There were no vitals taken for this visit. Last 3 Encounter BP Readings: Date: BP: 10/12/2024 130/60 07/25/2024 136/73 07/10/2024 110/60 Wt: 65.7 kg (144 lb 13.5 oz) BMI: 28.07 kg/(m2) LABS: Lab Results Component Value Date HBA1C 6.1 10/01/2024 HBA1C 7.1 07/10/2024 HBA1C 6.8 03/10/2024 HBA1C 7.0 12/31/2023 HBA1C 6.6 06/05/2023 HBA1C 7.6 05/13/2021 HBA1C 9.0 08/06/2020 HBA1C 8.1 04/03/2018 Glucose 85 10/01/2024 BUN 15 10/01/2024 Creatinine 0.65 10/01/2024 Sodium 138 10/01/2024 Potassium 5.0 10/01/2024 Chloride 101 10/01/2024 CO2 27 10/01/2024 Protein, Total 6.6 10/01/2024 Albumin 4.0 10/01/2024 Calcium 10.0 10/01/2024 Alkaline Phosphatase 104 10/01/2024 Bilirubin, Total 1.0 10/01/2024 AST 31 10/01/2024 ALT 16 10/01/2024 Lab Results Component Value Date CHOL 111 03/10/2024 CHOL 133 05/13/2021 LDL 42 03/10/2024 LDL 43 11/13/2021 LDL 56 05/13/2021 HDL 59 03/10/2024 HDL 58 05/13/2021 TG 49 03/10/2024 TG 95 05/13/2021 Albumin/Creat Ratio (mg/g) Date Value 02/11/2023 <20 eGFR-All Other Races (.) Date Value 05/13/2021 >60 Estimated Glomerular Filtration Rate (mL/min/1.73m?) Date Value 10/01/2024 88 ASSESSMENT/PLAN: 1. Type 2 diabetes mellitus without complication, with long-term current use of insulin (HCC) - ICD9: 250.00, V58.67, ICD10: E11.9, Z79.4 - Controlled - Continue current medications - Instructed patient to skip dose of Humalog if skipping a meal - Statin prescribed - atorvastatin - Blood glucose monitoring on a continuous glucose monitoring schedule - Counseled on healthy diet and regular exercise - Discussed diabetic education issues of hypoglycemic/hyperglycemic symptoms - Follow up in 3 months per patient preference, sooner should any other issues arise. Overdue Diabetes Health Maintenance: Up to date on diabetes-related health maintenance Follow Up: Next PCP visit: 12/07/24 Next PharmD visit: 03/04/25 Joanie Stone, MarkD, BCACP Primary Care Clinical Cementer Machine Joiner I spent a total of 25 minutes on the date of the service which included preparing to see the patient, [id number] patient care, completing clinical documentation, and counseling and educating the patient/family/caregiver. PROGRESS Observed: 10/12/2024 7:10 AM Status: COMPLETED Source: [facility] ID: [id number] Author: MI POOLE APRN.CREDIT RISK MANAGER Service: ? Author Type: Nurse Specialist Type: Progress Notes Filed: 10/12/2024 07:45 Note Text: SUBJECTIVE: Shingrix Vaccine(2 of 3) due on 11/19/2012 Diabetic Foot Exam due on 02/15/2024 Medicare Advantage Annual Wellness Visit Never done HPI Magnolia Fisher is a 84 year old female. PMH significant for ACTIVE PROBLEM LIST Myalgia and Myositis, Unspecified Mixed Hyperlipidemia Essential Hypertension Degeneration of Cervical Intervertebral Disc Cervical radiculopathy Esophageal Reflux Retinal Hemorrhage Disorder of Bone and Cartilage, Unspecified Diaphragmatic Hernia Without Mention of Obstruction Or Gangrene Reactive Depression Sleep Apnea Choledocholithiasis Chronic Cholecystitis Gastroparesis Moderate Aortic Stenosis By Prior Echocardiogram Type 2 Diabetes Mellitus Without Complication, With Long-Term Current Use of Insulin (Hcc) Secondary Pulmonary Arterial Hypertension (Hcc) Coronary Artery Disease Involving Andreafski Coronary Artery Presents today for routine follow-up visit. Presents with her daughter Nicole. Weight is stable. She is active and feeling well. Diabetes: - Improved glycemic control with recent A1c showing better results. - Utilizing a continuous glucose monitor. - Administering 3 insulin injections per day for meals and one long-acting insulin injection. - Benefiting from pharmacist consultations for diabetes management. Heart Disease: - Released from [facility] in August. - Currently under the care of [facility]. - Recent echocardiogram reported as normal. - Reports feeling well but experiences fatigue. Macular Degeneration: - Recent ophthalmology appointment noted worsening vision. - Awaiting new glasses. Shingles: - Developed shingles in June. - Still has a residual rash. Arthritis: - Suspected arthritis in Magnolia's feet. - Magnolia has not seen a epic manager recently due to shingles but plans to schedule an appointment soon. Lifestyle: - Previously engaged in regular walking, which improved well-being. - Decreased physical activity following the loss of her dog. - Remains active around the house, dislikes prolonged sitting. S/P transcatheter aortic valve replacement Evolut FX transcatheter bioprosthetic aortic valve with a size of 26 mm.at [facility] September 11, [address]Peter Edwards for severe symptomatic nonrheumatic aortic valve stenosis. History of CAD status post CABG 1998 MACARIO to LAD, left radial to the diagonal. Coronary stent placement January 04, 2021 NICO ostial left circumflex. Following currently with [facility] Q6mos.Discharged from [facility] cardiothoracic follow up, last echocardiogram looked good. She notes decreased vision. No longer driving. Notes mood stable on current treatments. Notes CGM and pharmacist is very helpful. DIABETES MELLITUS: Without report of excessive thirst or increased frequency of urination, chest pain or dyspnea , numbness, tingling or pain in extremities, new or unusual visual symptoms, low sugar/hypoglycemic reactions, weight loss/gain, lightheadedness/dizziness, and bowel changes/loose stools. Patient's last HgA1C was Hemoglobin A1C (%) Date Value 10/01/2024 6.1 03/10/2024 6.8 05/13/2021 7.6 08/06/2020 9.0 Hemoglobin A1C (POCT) (%) Date Value 07/10/2024 7.1 12/31/2023 7.0 ) Podiatry: [facility] Ophthalmology: [facility], retinopathy is present. HTN: Without report of headache, chest pain, palpitations, dyspnea, peripheral edema, orthopnea, fatigue, and PND. Last 14 Encounter BP Readings: Date: BP: 10/12/2024 130/60 07/25/2024 136/73 07/10/2024 110/60 03/09/2024 112/57 12/31/2023 102/58 09/27/2023 121/66 02/14/2023 110/63 11/14/2022 136/82 08/13/2022 130/74 05/16/2022 110/62 02/14/2022 108/62 11/13/2021 112/60 08/14/2021 116/64 05/16/2021 138/78 Hyperlipidemia. Ms. Fisher reports doing well on current therapy . Her most recent lipid panels are: Cholesterol, Total (mg/dL) Date Value 03/10/2024 111 02/11/2023 126 05/13/2021 133 04/03/2018 188 Cholesterol (mg/dL) Date Value 06/06/2018 174 HDL Cholesterol (mg/dL) Date Value 03/10/2024 59 02/11/2023 60 05/13/2021 58 06/06/2018 55 04/03/2018 59 LDL Cholesterol, Calculated (mg/dL) Date Value 03/10/2024 42 02/11/2023 49 05/13/2021 56 04/03/2018 111 LDL Cholesterol Calculated, Nonfasting (mg/dL) Date Value 11/13/2021 43 LDL Cholesterol (mg/dL) Date Value 06/06/2018 100 Triglyceride (mg/dL) Date Value 03/10/2024 49 02/11/2023 87 05/13/2021 95 06/06/2018 95 04/03/2018 92 ROS Constitutional: (+) fatigue Eyes: (+) decreased vision Skin: (+) rash Objective BP 130/60 Pulse (!) 51 Resp 16 Wt 65.7 kg (144 lb 13.5 oz) SpO2 98% BMI 28.07 kg/m? Physical Exam Vitals and nursing note reviewed. Constitutional: Appearance: Normal appearance. HENT: Head: Normocephalic and atraumatic. Eyes: Conjunctiva/sclera: Conjunctivae normal. Neck: Thyroid: No thyromegaly. Vascular: Normal carotid pulses. No JVD. Cardiovascular: Rate and Rhythm: Normal rate and regular rhythm. Pulses: Carotid pulses are 2+ on the right side and 2+ on the left side. Radial pulses are 2+ on the right side and 2+ on the left side. Heart sounds: Normal heart sounds. Pulmonary: Effort: Pulmonary effort is normal. Breath sounds: Normal breath sounds. Abdominal: General: Bowel sounds are normal. Palpations: Abdomen is soft. Musculoskeletal: Right lower leg: No edema. Left lower leg: No edema. Skin: General: Skin is warm and dry. Neurological: General: No focal deficit present. Mental Status: She is alert and oriented to person, place, and time. ALLERGIES Allergen Reactions Lisinopril Cough Resolved after stopped medication Remeron [Mirtazapin* Other: See Comments Contributed to trouble with memory. Also caused anxiety and irritability Seasonal Allergies Other: See Comments wheezing Medication Insulin Forbes, Disposable, (EASY COMFORT PEN NEEDLES) 32 gauge x 5/32 Use to inject insulin four times daily Blood-Glucose Sensor (FREESTYLE MARYANN 3 SENSOR) maynor Apply new sensor every fourteen (14) days to upper arm. blood sugar diagnostic (FREESTYLE PRECISION LORRIE STRIPS) test strip Pt tests approx 4 times after putting on new sensor if close or normal. If not may do more often. insulin lispro (HUMALOG KWIKPEN INSULIN) 100 unit/mL Take 6 units prior to breakfast, 6 units prior to lunch, and 6 units prior to dinner. If replacing meal with a protein shake, take 4 units with shake. Max 18 units/day. ENROLLED IN [employer] PAP insulin glargine (LANTUS SOLOSTAR U-100 INSULIN) 100 unit/mL (3 mL) Inject 20 Units subcutaneously daily at bedtime. atorvastatin (LIPITOR) 40 mg tablet Take 1 tablet by mouth once daily. losartan (COZAAR) 50 mg tablet Take 1 tablet by mouth once daily. metoprolol succinate ER (TOPROL XL) 100 mg Take 1 tablet by mouth once daily. Blood-Glucose Meter,Continuous (FREESTYLE MARYANN 3 READER) [facility] Use to check blood sugar at least four (4) times daily. cycloSPORINE (RESTASIS) 0.05 % ophthalmic emulsion Use 1 Drop in both eyes two times a day. (Dr. Candelaria--started 2 weeks ago) potassium chloride ER (KLOR-CON) 20 mEq tablet clopidogrel (PLAVIX) 75 mg tablet Take 75 mg by mouth once daily. vit A/vit C/vit E/zinc/copper (PRESERVISION AREDS ORAL) Take by mouth twice daily. aspirin, enteric coated (ASPIRIN, ENTERIC COATED) 81 mg EC tablet Take 81 mg by mouth once daily. xmlzkynj-uvg-vhrj-FA-lutein (CENTRUM SILVER WOMEN) 8 mg iron-400 mcg-300 mcg tab Take 1 tablet by mouth daily Lancets lancets Test blood sugar(s) 3 times daily. Dx: Type 2 DM - Controlled E11.65 Insulin: Yes nitroglycerin sublingual (NITROQUICK) 0.4 mg SL tablet Dissolve 0.4 mg under the tongue as needed. If no pain relief call 911. Dr. Hoyos. vitamin b complex tab Take 1 tablet by mouth once daily. Cholecalciferol, Vitamin D3, 2,000 unit Tab Take 1 capsule by mouth one time daily albuterol HFA (PROAIR HFA) 90 mcg/actuation inhaler Inhale 2 Puffs as instructed every 4 hours as needed. furosemide (LASIX) 40 mg tablet Take 40 mg by mouth once daily. (Patient not taking: Reported on 07/10/2024) PAST MEDICAL HISTORY Diagnosis Date Acute gastritis without mention of hemorrhage Aortic stenosis, mild 05/19/2018 Echocardiogram at [facility] 04/16/2018 Asthma (HCC) Coronary atherosclerosis of unspecified type of vessel, port heiden or graft Depression Diaphragmatic hernia without mention of obstruction or gangrene Esophageal reflux 07/29/2006 Hypersomnia with sleep apnea, unspecified Irritable bowel syndrome Localized osteoarthrosis not specified whether primary or secondary, unspecified site Myalgia and myositis, unspecified Obesity, unspecified Obstructive sleep apnea Other and unspecified hyperlipidemia Other specified gastritis Retinal hemorrhage 02/27/2007 Dr. Yu Type II or unspecified type diabetes mellitus without mention of complication, uncontrolled Unspecified essential hypertension Social History Tobacco Use Smoking status: Former Smokeless tobacco: Never Substance Use Topics Alcohol use: No Drug use: Never Latest Ref Rng 12/31/2023 03/10/2024 07/10/2024 10/01/2024 Protein, Total 6.3 - 8.0 g/dL 6.7 6.6 Albumin 3.9 - 4.9 g/dL 4.1 4.0 Calcium 8.5 - 10.2 mg/dL 9.4 10.0 Bilirubin, Total 0.2 - 1.3 mg/dL 1.2 1.0 Alkaline Phosphatase 34 - 123 U/L 121 104 AST 13 - 35 U/L 37 (H) 31 ALT 7 - 38 U/L 25 16 Glucose 74 - 99 mg/dL 110 (H) 85 BUN 7 - 21 mg/dL 10 15 Creatinine 0.58 - 0.96 mg/dL 0.62 0.65 Sodium 136 - 144 mmol/L 138 138 Potassium 3.7 - 5.1 mmol/L 4.3 5.0 Chloride 98 - 107 mmol/L 100 101 CO2 22 - 30 mmol/L 29 27 Anion Gap 8 - 15 mmol/L 9 10 eGFR >=60 mL/min/1.73m? 90 88 WBC 3.70 - 11.00 k/uL 8.43 7.59 RBC 3.90 - 5.20 m/uL 4.15 4.07 Hemoglobin 11.5 - 15.5 g/dL 13.8 13.3 Hematocrit 36.0 - 46.0 % 42.1 41.6 MCV 80.0 - 100.0 fL 101.4 (H) 102.2 (H) MCH 26.0 - 34.0 pg 33.3 32.7 MCHC 30.5 - 36.0 g/dL 32.8 32.0 RDW-CV 11.5 - 15.0 % 12.2 13.3 Platelet Count 150 - 400 k/uL 227 240 MPV 9.0 - 12.7 fL 10.9 11.1 Absolute nRBC <0.01 k/uL <0.01 <0.01 Cholesterol, Total <200 mg/dL 111 Triglyceride <150 mg/dL 49 HDL Cholesterol >39 mg/dL 59 Non HDL Cholesterol <130 mg/dL 52 Fasting Time hrs 12 VLDL Cholesterol <30 mg/dL 10 TC:HDL Ratio <5.10 1.88 LDL Cholesterol, Calculated <100 mg/dL 42 LDL:HDL Ratio <2.54 0.71 Creatinine, Ur Random (UCRR) 20.0 - 300.0 mg/dL 29.1 28.5 Albumin, Urine Random mg/L <12.0 <12.0 Albumin/Creat Ratio -- -- Hemoglobin A1C 4.3 - 5.6 % 6.8 (H) 6.1 (H) Estimated Average Glucose mg/dL 148 128 Hemoglobin A1C (POCT) 4.3 - 5.6 % 7.0 ! 7.1 ! Vitamin D 25 Hydroxy 31.0 - 80.0 ng/mL 58.2 45.9 Occult Blood, Stool Negative Negative ASSESSMENT/PLAN: 1. Type 2 diabetes mellitus without complication, with long-term current use of insulin (HCC) - ICD9: 250.00, V58.67, ICD10: E11.9, Z79.4 (primary diagnosis) - Well controlled - Continue current medications - Blood glucose monitoring - using CGM - Endorse healthy diet and regular exercise 2. Essential hypertension - ICD9: 401.9, ICD10: I10 controlled - Continue current medications - Encouraged sodium restriction, DASH or Mediterranean diet - Recommend regular aerobic exercise 3. Gastroesophageal reflux disease, unspecified whether esophagitis present - ICD9: 530.81, ICD10: K21.9 Controlled - Endorse lifestyle modifications Continue with current treatment unchanged for now 4. Mixed hyperlipidemia - ICD9: 272.2, ICD10: E78.2 Recommend a plant based diet such as Mediterranean diet with plenty of vegetables, fruits,whole grains, fish, chicken, turkey or plant proteins and routine exercise such as walking Continue with current treatment statin unchanged for now 5. S/P CABG (coronary artery bypass graft) - ICD9: V45.81, ICD10: Z95.1 7. S/P TAVR (transcatheter aortic valve replacement) - ICD9: V43.3, ICD10: Z95.2 Followed by [facility] Has been discharged from [facility] - Continue current cardiac medications. 7. Vitamin D deficiency (E55.9) - No new issues reported. - Continue current supplementation. 8. Encounter for immunization (Z23) - Discussed Shingrix vaccine; advised to receive it at the pharmacy once current shingles rash has completely resolved, approximately 2-4 weeks. 9. Screening for colon cancer (Z12.11) - Recent screening test negative for malignancy. Mi Poole APRN.CREDIT RISK MANAGER Medical Decision Making: Problems: Moderate: 2+ stable chronic illnesses Data: Unique test result(s) reviewed: 3+ Risk: Moderate: Drug management Medical Decision Making Level: 4 - Moderate CNOV Observed: 10/12/2024 7:00 AM Status: COMPLETED Source: [facility] Office Visit (INTMWS) MAGNOLIA FISHER ([id number]) 1940 F CHT Date Time Provider Department 10/12/24 7:00 AM MI POOLE INTMWS During your visit today, we recorded the following information about you: Pulse Respiration Blood pressure Weight 51/minute 16/minute 130/60 65.7 kg Mi Poole, MENTAL HEALTH PROGRAM DIRECTOR.CREDIT RISK MANAGER 10/12/2024 7:45 AM Signed SUBJECTIVE: Shingrix Vaccine(2 of 3) due on 11/19/2012 Diabetic Foot Exam due on 02/15/2024 Medicare Advantage Annual Wellness Visit Never done HPI Magnolia Fisher is a 84 year old female. PMH significant for ACTIVE PROBLEM LIST Myalgia and Myositis, Unspecified Mixed Hyperlipidemia Essential Hypertension Degeneration of Cervical Intervertebral Disc Cervical radiculopathy Esophageal Reflux Retinal Hemorrhage Disorder of Bone and Cartilage, Unspecified Diaphragmatic Hernia Without Mention of Obstruction Or Gangrene Reactive Depression Sleep Apnea Choledocholithiasis Chronic Cholecystitis Gastroparesis Moderate Aortic Stenosis By Prior Echocardiogram Type 2 Diabetes Mellitus Without Complication, With Long-Term Current Use of Insulin (Hcc) Secondary Pulmonary Arterial Hypertension (Hcc) Coronary Artery Disease Involving Andreafski Coronary Artery Presents today for routine follow-up visit. Presents with her daughter Nicole. Weight is stable. She is active and feeling well. Diabetes: - Improved glycemic control with recent A1c showing better results. - Utilizing a continuous glucose monitor. - Administering 3 insulin injections per day for meals and one long-acting insulin injection. - Benefiting from pharmacist consultations for diabetes management. Heart Disease: - Released from [facility] in August. - Currently under the care of [facility]. - Recent echocardiogram reported as normal. - Reports feeling well but experiences fatigue. Macular Degeneration: - Recent ophthalmology appointment noted worsening vision. - Awaiting new glasses. Shingles: - Developed shingles in June. - Still has a residual rash. Arthritis: - Suspected arthritis in Magnolia's feet. - Magnolia has not seen a epic manager recently due to shingles but plans to schedule an appointment soon. Lifestyle: - Previously engaged in regular walking, which improved well-being. - Decreased physical activity following the loss of her dog. - Remains active around the house, dislikes prolonged sitting. S/P transcatheter aortic valve replacement Evolut FX transcatheter bioprosthetic aortic valve with a size of 26 mm.at [facility] September 11, [address]Peter Edwards for severe symptomatic nonrheumatic aortic valve stenosis. History of CAD status post CABG 1998 MACARIO to LAD, left radial to the diagonal. Coronary stent placement January 04, 2021 NICO ostial left circumflex. Following currently with [facility] Q6mos.Discharged from [facility] cardiothoracic follow up, last echocardiogram looked good. She notes decreased vision. No longer driving. Notes mood stable on current treatments. Notes CGM and pharmacist is very helpful. DIABETES MELLITUS: Without report of excessive thirst or increased frequency of urination, chest pain or dyspnea , numbness, tingling or pain in extremities, new or unusual visual symptoms, low sugar/hypoglycemic reactions, weight loss/gain, lightheadedness/dizziness, and bowel changes/loose stools. Patient's last HgA1C was Hemoglobin A1C (%) Date Value 10/01/2024 6.1 03/10/2024 6.8 05/13/2021 7.6 08/06/2020 9.0 Hemoglobin A1C (POCT) (%) Date Value 07/10/2024 7.1 12/31/2023 7.0 ) Podiatry: [facility] Ophthalmology: [facility], retinopathy is present. HTN: Without report of headache, chest pain, palpitations, dyspnea, peripheral edema, orthopnea, fatigue, and PND. Last 14 Encounter BP Readings: Date: BP: 10/12/2024 130/60 07/25/2024 136/73 07/10/2024 110/60 03/09/2024 112/57 12/31/2023 102/58 09/27/2023 121/66 02/14/2023 110/63 11/14/2022 136/82 08/13/2022 130/74 05/16/2022 110/62 02/14/2022 108/62 11/13/2021 112/60 08/14/2021 116/64 05/16/2021 138/78 Hyperlipidemia. Ms. Fisher reports doing well on current therapy . Her most recent lipid panels are: Cholesterol, Total (mg/dL) Date Value 03/10/2024 111 02/11/2023 126 05/13/2021 133 04/03/2018 188 Cholesterol (mg/dL) Date Value 06/06/2018 174 HDL Cholesterol (mg/dL) Date Value 03/10/2024 59 02/11/2023 60 05/13/2021 58 06/06/2018 55 04/03/2018 59 LDL Cholesterol, Calculated (mg/dL) Date Value 03/10/2024 42 02/11/2023 49 05/13/2021 56 04/03/2018 111 LDL Cholesterol Calculated, Nonfasting (mg/dL) Date Value 11/13/2021 43 LDL Cholesterol (mg/dL) Date Value 06/06/2018 100 Triglyceride (mg/dL) Date Value 03/10/2024 49 02/11/2023 87 05/13/2021 95 06/06/2018 95 04/03/2018 92 ROS Constitutional: (+) fatigue Eyes: (+) decreased vision Skin: (+) rash Objective BP 130/60 Pulse (!) 51 Resp 16 Wt 65.7 kg (144 lb 13.5 oz) SpO2 98% BMI 28.07 kg/m? Physical Exam Vitals and nursing note reviewed. Constitutional: Appearance: Normal appearance. HENT: Head: Normocephalic and atraumatic. Eyes: Conjunctiva/sclera: Conjunctivae normal. Neck: Thyroid: No thyromegaly. Vascular: Normal carotid pulses. No JVD. Cardiovascular: Rate and Rhythm: Normal rate and regular rhythm. Pulses: Carotid pulses are 2+ on the right side and 2+ on the left side. Radial pulses are 2+ on the right side and 2+ on the left side. Heart sounds: Normal heart sounds. Pulmonary: Effort: Pulmonary effort is normal. Breath sounds: Normal breath sounds. Abdominal: General: Bowel sounds are normal. Palpations: Abdomen is soft. Musculoskeletal: Right lower leg: No edema. Left lower leg: No edema. Skin: General: Skin is warm and dry. Neurological: General: No focal deficit present. Mental Status: She is alert and oriented to person, place, and time. ALLERGIES Allergen Reactions Lisinopril Cough Resolved after stopped medication Remeron [Mirtazapin* Other: See Comments Contributed to trouble with memory. Also caused anxiety and irritability Seasonal Allergies Other: See Comments wheezing Medication Insulin Forbes, Disposable, (EASY COMFORT PEN NEEDLES) 32 gauge x 5/32 Use to inject insulin four times daily Blood-Glucose Sensor (FREESTYLE MARYANN 3 SENSOR) maynor Apply new sensor every fourteen (14) days to upper arm. blood sugar diagnostic (FREESTYLE PRECISION LORRIE STRIPS) test strip Pt tests approx 4 times after putting on new sensor if close or normal. If not may do more often. insulin lispro (HUMALOG KWIKPEN INSULIN) 100 unit/mL Take 6 units prior to breakfast, 6 units prior to lunch, and 6 units prior to dinner. If replacing meal with a protein shake, take 4 units with shake. Max 18 units/day. [email or web address] PAP insulin glargine (LANTUS SOLOSTAR U-100 INSULIN) 100 unit/mL (3 mL) Inject 20 Units subcutaneously daily at bedtime. atorvastatin (LIPITOR) 40 mg tablet Take 1 tablet by mouth once daily. losartan (COZAAR) 50 mg tablet Take 1 tablet by mouth once daily. metoprolol succinate ER (TOPROL XL) 100 mg Take 1 tablet by mouth once daily. Blood-Glucose Meter,Continuous (FREESTYLE MARYANN 3 READER) [facility] Use to check blood sugar at least four (4) times daily. cycloSPORINE (RESTASIS) 0.05 % ophthalmic emulsion Use 1 Drop in both eyes two times a day. (Dr. Candelaria--started 2 weeks ago) potassium chloride ER (KLOR-CON) 20 mEq tablet clopidogrel (PLAVIX) 75 mg tablet Take 75 mg by mouth once daily. vit A/vit C/vit E/zinc/copper (PRESERVISION AREDS ORAL) Take by mouth twice daily. aspirin, enteric coated (ASPIRIN, ENTERIC COATED) 81 mg EC tablet Take 81 mg by mouth once daily. cobigruw-ycn-pfth-FA-lutein (CENTRUM SILVER WOMEN) 8 mg iron-400 mcg-300 mcg tab Take 1 tablet by mouth daily Lancets lancets Test blood sugar(s) 3 times daily. Dx: Type 2 DM - Controlled E11.65 Insulin: Yes nitroglycerin sublingual (NITROQUICK) 0.4 mg SL tablet Dissolve 0.4 mg under the tongue as needed. If no pain relief call 911. Dr. Hoyos. vitamin b complex tab Take 1 tablet by mouth once daily. Cholecalciferol, Vitamin D3, 2,000 unit Tab Take 1 capsule by mouth one time daily albuterol HFA (PROAIR HFA) 90 mcg/actuation inhaler Inhale 2 Puffs as instructed every 4 hours as needed. furosemide (LASIX) 40 mg tablet Take 40 mg by mouth once daily. (Patient not taking: Reported on 07/10/2024) PAST MEDICAL HISTORY Diagnosis Date Acute gastritis without mention of hemorrhage Aortic stenosis, mild 05/19/2018 Echocardiogram at [facility] 04/16/2018 Asthma (HCC) Coronary atherosclerosis of unspecified type of vessel, port heiden or graft Depression Diaphragmatic hernia without mention of obstruction or gangrene Esophageal reflux 07/29/2006 Hypersomnia with sleep apnea, unspecified Irritable bowel syndrome Localized osteoarthrosis not specified whether primary or secondary, unspecified site Myalgia and myositis, unspecified Obesity, unspecified Obstructive sleep apnea Other and unspecified hyperlipidemia Other specified gastritis Retinal hemorrhage 02/27/2007 Dr. Yu Type II or unspecified type diabetes mellitus without mention of complication, uncontrolled Unspecified essential hypertension Social History Tobacco Use Smoking status: Former Smokeless tobacco: Never Substance Use Topics Alcohol use: No Drug use: Never Latest Ref Rng 12/31/2023 03/10/2024 07/10/2024 10/01/2024 Protein, Total 6.3 - 8.0 g/dL 6.7 6.6 Albumin 3.9 - 4.9 g/dL 4.1 4.0 Calcium 8.5 - 10.2 mg/dL 9.4 10.0 Bilirubin, Total 0.2 - 1.3 mg/dL 1.2 1.0 Alkaline Phosphatase 34 - 123 U/L 121 104 AST 13 - 35 U/L 37 (H) 31 ALT 7 - 38 U/L 25 16 Glucose 74 - 99 mg/dL 110 (H) 85 BUN 7 - 21 mg/dL 10 15 Creatinine 0.58 - 0.96 mg/dL 0.62 0.65 Sodium 136 - 144 mmol/L 138 138 Potassium 3.7 - 5.1 mmol/L 4.3 5.0 Chloride 98 - 107 mmol/L 100 101 CO2 22 - 30 mmol/L 29 27 Anion Gap 8 - 15 mmol/L 9 10 eGFR >=60 mL/min/1.73m? 90 88 WBC 3.70 - 11.00 k/uL 8.43 7.59 RBC 3.90 - 5.20 m/uL 4.15 4.07 Hemoglobin 11.5 - 15.5 g/dL 13.8 13.3 Hematocrit 36.0 - 46.0 % 42.1 41.6 MCV 80.0 - 100.0 fL 101.4 (H) 102.2 (H) MCH 26.0 - 34.0 pg 33.3 32.7 MCHC 30.5 - 36.0 g/dL 32.8 32.0 RDW-CV 11.5 - 15.0 % 12.2 13.3 Platelet Count 150 - 400 k/uL 227 240 MPV 9.0 - 12.7 fL 10.9 11.1 Absolute nRBC <0.01 k/uL <0.01 <0.01 Cholesterol, Total <200 mg/dL 111 Triglyceride <150 mg/dL 49 HDL Cholesterol >39 mg/dL 59 Non HDL Cholesterol <130 mg/dL 52 Fasting Time hrs 12 VLDL Cholesterol <30 mg/dL 10 TC:HDL Ratio <5.10 1.88 LDL Cholesterol, Calculated <100 mg/dL 42 LDL:HDL Ratio <2.54 0.71 Creatinine, Ur Random (UCRR) 20.0 - 300.0 mg/dL 29.1 28.5 Albumin, Urine Random mg/L <12.0 <12.0 Albumin/Creat Ratio -- -- Hemoglobin A1C 4.3 - 5.6 % 6.8 (H) 6.1 (H) Estimated Average Glucose mg/dL 148 128 Hemoglobin A1C (POCT) 4.3 - 5.6 % 7.0 ! 7.1 ! Vitamin D 25 Hydroxy 31.0 - 80.0 ng/mL 58.2 45.9 Occult Blood, Stool Negative Negative ASSESSMENT/PLAN: 1. Type 2 diabetes mellitus without complication, with long-term current use of insulin (HCC) - ICD9: 250.00, V58.67, ICD10: E11.9, Z79.4 (primary diagnosis) - Well controlled - Continue current medications - Blood glucose monitoring - using CGM - Endorse healthy diet and regular exercise 2. Essential hypertension - ICD9: 401.9, ICD10: I10 controlled - Continue current medications - Encouraged sodium restriction, DASH or Mediterranean diet - Recommend regular aerobic exercise 3. Gastroesophageal reflux disease, unspecified whether esophagitis present - ICD9: 530.81, ICD10: K21.9 Controlled - Endorse lifestyle modifications Continue with current treatment unchanged for now 4. Mixed hyperlipidemia - ICD9: 272.2, ICD10: E78.2 Recommend a plant based diet such as Mediterranean diet with plenty of vegetables, fruits,whole grains, fish, chicken, turkey or plant proteins and routine exercise such as walking Continue with current treatment statin unchanged for now 5. S/P CABG (coronary artery bypass graft) - ICD9: V45.81, ICD10: Z95.1 7. S/P TAVR (transcatheter aortic valve replacement) - ICD9: V43.3, ICD10: Z95.2 Followed by [facility] Has been discharged from [facility] - Continue current cardiac medications. 7. Vitamin D deficiency (E55.9) - No new issues reported. - Continue current supplementation. 8. Encounter for immunization (Z23) - Discussed Shingrix vaccine; advised to receive it at the pharmacy once current shingles rash has completely resolved, approximately 2-4 weeks. 9. Screening for colon cancer (Z12.11) - Recent screening test negative for malignancy. Mi Poole APRN.CREDIT RISK MANAGER Medical Decision Making: Problems: Moderate: 2+ stable chronic illnesses Data: Unique test result(s) reviewed: 3+ Risk: Moderate: Drug management Medical Decision Making Level: 4 - Moderate Allergies As of Date: 10/12/2024 Noted Allergy Reaction LISINOPRIL 06/06/2011 3 - Cough Comments: Resolved after stopped medication REMERON (MIRTAZAPINE) 11/13/2021 14 - Other: See Comments Comments: Contributed to trouble with memory. Also caused anxiety and irritability SEASONAL ALLERGIES 06/26/2013 14 - Other: See Comments Comments: wheezing Date Reviewed: 10/12/2024 Reviewed by: Rox Madrigal LPN - Fully Assessed Reason for Visit: F/U 3 Month [443] Primary Visit Diagnosis:Type 2 diabetes mellitus without complication, with long-term current use of insulin ([facility]) [E11.9, Z79.4] Other Visit Diagnoses:Essential hypertension [I10] Gastroesophageal reflux disease, unspecified whether esophagitis present [K21.9] Mixed hyperlipidemia [E78.2] S/P TAVR (transcatheter aortic valve replacement) [Z95.2] S/P CABG (coronary artery bypass graft) [Z95.1] Vitamin D deficiency [E55.9] Encounter for immunization [Z23] Screening for colon cancer [Z12.11] Order(s):[facility] [employer] [employer] INSTRUCTIONS [[id number]] Order #: [id number]: 1 Prescriptions as of 10/12/2024 - Insulin Forbes, Disposable, (EASY COMFORT PEN NEEDLES) 32 gauge x 5/32 Use to inject insulin four times daily - Blood-Glucose Sensor (FREESTYLE MARYANN 3 SENSOR) maynor Apply new sensor every fourteen (14) days to upper arm. - blood sugar diagnostic (FREESTYLE PRECISION LORRIE STRIPS) test strip Pt tests approx 4 times after putting on new sensor if close or normal. If not may do more often. - insulin lispro (HUMALOG KWIKPEN INSULIN) 100 unit/mL Take 6 units prior to breakfast, 6 units prior to lunch, and 6 units prior to dinner. If replacing meal with a protein shake, take 4 units with shake. Max 18 units/day. [email or web address] - insulin glargine (LANTUS SOLOSTAR U-100 INSULIN) 100 unit/mL (3 mL) Inject 20 Units subcutaneously daily at bedtime. - atorvastatin (LIPITOR) 40 mg tablet Take 1 tablet by mouth once daily. - losartan (COZAAR) 50 mg tablet Take 1 tablet by mouth once daily. - metoprolol succinate ER (TOPROL XL) 100 mg Take 1 tablet by mouth once daily. - Blood-Glucose Meter,Continuous (FREESTYLE MARYANN 3 READER) [facility] Use to check blood sugar at least four (4) times daily. - cycloSPORINE (RESTASIS) 0.05 % ophthalmic emulsion Use 1 Drop in both eyes two times a day. (Dr. Candelaria--started 2 weeks ago) - potassium chloride ER (KLOR-CON) 20 mEq tablet - clopidogrel (PLAVIX) 75 mg tablet Take 75 mg by mouth once daily. - vit A/vit C/vit E/zinc/copper (PRESERVISION AREDS ORAL) Take by mouth twice daily. - aspirin, enteric coated (ASPIRIN, ENTERIC COATED) 81 mg EC tablet Take 81 mg by mouth once daily. - elxswuig-gwp-ixlv-FA-lutein (CENTRUM SILVER WOMEN) 8 mg iron-400 mcg-300 mcg tab Take 1 tablet by mouth daily - Lancets lancets Test blood sugar(s) 3 times daily. Dx: Type 2 DM - Controlled E11.65 Insulin: Yes - nitroglycerin sublingual (NITROQUICK) 0.4 mg SL tablet Dissolve 0.4 mg under the tongue as needed. If no pain relief call 911. Dr. Hoyos. - vitamin b complex tab Take 1 tablet by mouth once daily. - Cholecalciferol, Vitamin D3, 2,000 unit Tab Take 1 capsule by mouth one time daily - albuterol HFA (PROAIR HFA) 90 mcg/actuation inhaler Inhale 2 Puffs as instructed every 4 hours as needed. Meds Comments as of 08/30/2010: Problem List As Of Date 10/12/2024 Noted Resolved MYALGIA AND MYOSITIS NOS [[id number]] Mixed hyperlipidemia [E78.2] Essential hypertension [I10] Class 1 obesity due to excess calories with ser* 02/13/2021 CERVICAL DISC DEGEN [M50.30] 01/23/2006 Type 2 diabetes mellitus, uncontrolled [MHW1752]01/23/2006 05/14/2022 Cervical radiculopathy [YYP2672] 01/23/2006 ESOPHAGEAL REFLUX [K21.9] 07/29/2006 RETINAL HEMORRHAGE [H35.60] 02/27/2007 BONE AND CARTILAGE DIS NOS [M89.9, M94.9] 05/27/2007 Acute gastritis without mention of hemorrhage [*04/04/2010 05/14/2022 Diaphragmatic hernia without mention of obstruc*04/04/2010 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] 05/22/2010 Sleep apnea [G47.30] 10/09/2011 Choledocholithiasis [K80.50] 04/07/2012 Chronic cholecystitis [K81.1] 04/07/2012 Gastroparesis [K31.84] 06/26/2013 Moderate aortic stenosis by prior echocardiogra*05/19/2018 Type 2 diabetes mellitus without complication, *11/13/2021 Secondary pulmonary arterial hypertension (HCC)*08/13/2022 Coronary artery disease involving [place] harris*08/13/2022 Medications Discontinued During This Encounter Prescriptions - furosemide (LASIX) 40 mg tablet (Discontinued) Reported on 07/10/2024 Level of Service: OFFICE/OUTPATIENT ESTABLISHED MOD MDM 30 MIN [76990] Additional E/M codes: VISIT CPLX INHERENT EANDM ASSOC WITH MED * Encounter Status:Closed by MI POOLE on 10/12/24 HEMOCCULT STL QL IA Collected: 10/01/2024 7:[address] atus: F Source: [facility] Order Comment: Specimen Type : STOOL SPECIMEN Ordering Facility: [facility] Address: [address] [place] [address] TYPE CODE TESTS RESULT OUT OF RANGE REFERENCE UNITS LAB 06472-0([facility]) Hemoccult Stl Ql IA Negative Negative Performed By: #### [id number] # ### [facility] CLIA [id number] [address] [place] [address] DEPRECATED HGB A1C BLD Collected: 10/01 7:21 AM Status: F Source: [facility] Order Comment: Specimen Type : BLOOD SPECIMEN Ordering Facility: [facility] Address: [address] [place] [address] TYPE CODE TESTS RESULT OUT OF RANGE REFERENCE UNITS LAB 4548-4(LOINC) HbA1c MFr Bld 6.1 High 4.3-5.6 % Result Comment: [place] Nancy betes Association guidelines indicate that patients with HgbA1c in the range 5.7-6.4% are at increased risk for development of diabetes, and intervention by lifestyle modification may be beneficial. HgbA1c greater or equal to 6.5% is considered diagnostic of diabetes. LAB 58696-1(LOINC) Est. average glucose Bld gHb Est-mCnc 128 mg/dL Result Comment: eAG: (Estima asuncion average glucose) is a calculated value from HgbA1c and is account executive sales representative of the average blood glucose level in the last 2-3 month period. Performed By: #### 55234-1 # ### [facility] CLIA [id number] [address] [place] [address] 25(OH)D3 SERPL-MCNC Collected: 10/02/19 25 7:21 AM Status: F Source: [facility] Comment: Specimen Type : BLOOD SPECIMEN Ordering Facility: [facility] Address: [address] [place] [address] TYPE CODE TESTS RESULT OUT OF RANGE REFERENCE UNITS LAB 1988-([facility]) 25(OH)D3 SerPl-mCnc 45.9 31.0-80.0 ng/mL Result Comment: Classificati on of 25 OH Vitamin D status: Deficiency/Insufficiency: < or = 30 ng/ml. Sufficiency/Optimal Levels: 31-80 ng/mL Toxicity: > 100 ng/mL. Test performed by chemiluminescent immunoassay. Performed By: #### 1988-05 ## ## [facility] CLIA [id number] [address] [place] [address] OF [facility] CBC PNL BLD AUTO Collected: 5 7:21 AM Status: F Source: [facility] Comment: Specimen Type : BLOOD SPECIMEN Ordering Facility: [facility] Address: [address] [place] [address] TYPE CODE TESTS RESULT OUT OF RANGE REFERENCE UNITS LAB 6690-2(LOINC) WBC # Bld Auto 7.59 3.70-11.00 k/uL LAB 789-8(LOINC) RBC # Bld Auto 4.07 3.90-5.20 m/uL LAB 718-7(LOINC) Hgb Bld-mCnc 13.3 11.5-15.5 g/dL LAB 4544-3(LOINC) Hct VFr Bld Auto 41.6 36.0-46.0 % LAB 787-2(LOINC) MCV RBC Auto 102.2 High 80.0-100.0 fL LAB 785-6(LOINC) MCH RBC Qn Auto 32.7 26.0-34.0 pg LAB 786-4(LOINC) MCHC RBC Auto-mCnc 32.0 30.5-36.0 g/dL LAB 56295-6(LOINC) RDW RBC-Rto 13.3 11.5-15.0 % LAB 777-3([facility]) Platelet # Bld Auto 240 150-400 k/uL LAB 76637-5([facility]) PMV Bld Auto 11.1 9.0-12.7 fL LAB 771-6([facility]) nRBC # Bld Auto <0.01 <0.01 k/uL Performed By: #### 41524-1 # ### [facility] CLIA [id number] [address] [place] [address] [place] COMP METAB 2000 PNL SERPL Collected: 7:21 AM Status: F Source: [facility] Order Comment: Specimen Type : BLOOD SPECIMEN Ordering Facility: [facility] Address: [address] [place] [address] TYPE CODE TESTS RESULT OUT OF RANGE REFERENCE UNITS LAB 2885-2([facility]) Prot SerPl-mCnc 6.6 6.3-8.0 g/dL LAB 1751-7([facility]) Albumin SerPl-mCnc 4.0 3.9-4.9 g/dL LAB 01585-8([facility]) Calcium SerPl-mCnc 10.0 8.5-10.2 mg/dL LAB 1975-2([facility]) Bilirub SerPl-mCnc 1.0 0.2-1.3 mg/dL LAB 6768-6([facility]) ALP SerPl-cCnc 104 34-123 U/L LAB 1920-8([facility]) AST SerPl-cCnc 31 13-35 U/L LAB 1742-6([facility]) ALT SerPl-cCnc 16 7-38 U/L LAB 2345-7([facility]) Glucose SerPl-mCnc 85 74-99 mg/dL Result Comment: The [place] Diabetes Association (ADA) provides guidance for cutoff values for fasting glucose and random glucose. The ADA defines fasting as no caloric intake for at least 8 hours. Fasting plasma glucose results between 100 to 125 [...] Standards of Medical Care in Diabetes 2016, [place] Diabetes Association. Diabetes Care. 2016.39(Suppl 1). LAB 3094-0(LOINC) BUN SerPl-mCnc 15 7-21 mg/ dL LAB 2160-0(LOINC) Creat SerPl-mCnc 0.65 0.58-0.96 mg/dL LAB 2951-2(LOINC) Sodium SerPl-sCnc 138 136-144 mmol/L LAB 2823-3(LOINC) Potassium SerPl-sCnc 5.0 3.7-5.1 mmol/L LAB 2075-0(LOINC) Chloride SerPl-sCnc 101 98-107 mmol/L LAB 2027-9(LOINC) CO2 SerPl-sCnc 27 22-30 mmo l/L LAB 16184-2(LOINC) Anion Gap SerPl-sCnc 10 8-15 mmol/L LAB 89519-4(LOINC) Creatinine + eGFR Pnl SerPlBld 88 >=60 mL/min/1 .73m??? Result Comment: Estimated Gl omerular Filtration Rate (eGFR) is calculated using the 2020 CKD-EPI creatinine equation. This equation utilizes serum creatinine, sex, and age as parameters. The creatinine assay has traceable calibration to isotope dilution-mass spectrometry. Refer to KDIGO guidelines for clinical interpretation. In patients with unstable renal function, e.g. those with acute kidney injury, the eGFR may not accurately reflect actual GFR. Performed By: #### 58097-7 # ### [facility] CLIA [id number] [address] [place] [address] [place] ALBUMIN/CREATININE RATIO, URINE Collect ed: 10/01/2024 7:19 AM Status: F Source: [facility] Order Comment: Specimen Type : URINE SPECIMEN Ordering Facility: [facility] Address: [address] [place] [address] TYPE CODE TESTS RESULT OUT OF RANGE REFERENCE UNITS LAB 2161-8(LOINC) Creat Ur-mCnc 28.5 20.0-300.0 m g/dL LAB 77652-3(LOINC ) Microalbumin Ur-mCnc <12.0 mg/L LAB 9318-7(LOINC) Albumin/Creat Ur Result Comment: Not calculat ed Adult Male and Female Nephrotic Criteria: <30 mg/g is considered normal to mildly increased 30-300 mg/g is considered moderately increased >300 mg/g is considered severely increased KDIGO. (2013). KDIGO 2012 Clinical Practice Guideline for the Evaluation and Management of Chronic Kidney Disease. Official Journal of the International Society of Nephrology, 3(1), 1-150. Performed By: #### UACR #### [facility] CLIA [id number] [address] [place] [address] PROGRESS Observed: 09/24/2024 7:06 PM Status: COMPLETED Source: [facility] HNO ID: [id number] Author: PAT NAVARRETE RN Service: ? Author Type: Registered Nurse Type: Progress Notes Filed: 09/24/2024 19:06 Note Text: Pt called and is notified of providers message. Pt voices understanding. Pat Navarrete RN PROGRESS Observed: 09/24/2024 6:53 PM Status: COMPLETED Source: [facility] HNO ID: [id number] Author: LORI CAN MD Service: ? Author Type: Physician Type: Progress Notes Filed: 09/24/2024 18:55 Note Text: Filed orders PROGRESS NOTE Observed: 09/10/2024 4:12 PM Status: COMPLETED Source: [facility] Echo as noted below. No LILIANE report in records -no history of AFib -continue metoprolol succinate 100 mg daily PROGRESS NOTE Observed: 09/10/2024 3:00 PM Status: COMPLETED Source: [facility] - [address] [address] Dept: [phone] Dept Loc: [phone] Reason for Visit: 1 Year Follow-up Assessment and Plan 1. Severe aortic stenosis Assessment & Plan: S/p TAVR on 09/11/23 with a 26 mm Medtronic Evolut valve -NYHA Class I -continue DAPT -reviewed lifelong SBE prophylaxis-amoxicillin prescription sent to pharmacy -one year echo to be done today Orders: - ECG 12 lead - CLINIC PERFORMED 2. Coronary artery disease involving [place] coronary artery of [place] heart without angina pectoris Assessment & Plan: Hx of CABG and PCI with NICO to LAD in 2020 -denies angina -continue DAPT -continue atorvastatin, metoprolol succinate Orders: - ECG 12 lead - CLINIC PERFORMED 3. Primary hypertension Assessment & Plan: BP well controlled. -continue current doses of losartan, Toprol XL 4. Nonrheumatic mitral valve stenosis Assessment & Plan: Echo as noted below. No LILIANE report in records -no history of AFib -continue metoprolol succinate 100 mg daily Follow up for Dr. Hoyos as scheduled. Marie Fisher is an 83 yr old female known to Dr. 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 Cath in 07/2023 showed patent grafts. Last echo on 11/07/23 showed EF 84%, Ao mean gradient 7, DI 0.70 and mean mitral gradient 12 mmHg. She presents today for a one year post TAVR follow up feeling well. Denies angina, SOB, orthopnea, bleeding, PND or dizziness. Lightheadedness only with quick position change. Recovering from recent shingles. Review of Systems Constitutional: Negative for chills and fever. Respiratory: Negative for cough and shortness of breath. Cardiovascular: Negative for chest pain, palpitations and leg swelling. Gastrointestinal: Negative for abdominal pain, blood in stool and vomiting. Genitourinary: Negative for hematuria. Neurological: Negative for dizziness and syncope. Allergies[1] Current Medications[2] Medical History[3] Social History Tobacco Use Smoking status: Former Types: Cigarettes Smokeless tobacco: Never Substance Use Topics Alcohol use: Not Currently Surgical History[4] Family History[5] Objective Vitals: 09/10/24 1452 BP: 120/66 BP Location: Right arm Patient Position: Sitting BP Cuff Size: Large adult Pulse: 54 SpO2: 97% Weight: 147 lb (66.7 kg) Height: 5' 1 (1.549 m) Body mass index is 27.78 kg/m?. Physical Exam Constitutional: Appearance: Normal appearance. HENT: Head: Normocephalic. Eyes: General: No scleral icterus. Right eye: No discharge. Left eye: No discharge. Cardiovascular: Rate and Rhythm: Normal rate and regular rhythm. Pulses: Normal pulses. Dorsalis pedis pulses are 2+ on the right side and 2+ on the left side. Posterior tibial pulses are 2+ on the right side and 2+ on the left side. Heart sounds: Normal heart sounds. No murmur heard. Pulmonary: Effort: Pulmonary effort is normal. Breath sounds: Normal breath sounds. Abdominal: General: Abdomen is flat. Palpations: Abdomen is soft. Musculoskeletal: General: Normal range of motion. Cervical back: Normal range of motion. Left lower leg: Edema (trace) present. Skin: General: Skin is warm and dry. Capillary Refill: Capillary refill takes less than 2 seconds. Neurological: Mental Status: She is alert and oriented to person, place, and time. Psychiatric: Mood and Affect: Mood normal. Data Reviewed and Summarized Lab Results Component Value Date WBC 7.6 09/20/2023 HGB 12.3 09/20/2023 HCT 37.7 09/20/2023 MCV 101.3 09/20/2023 PLT 251 09/12/2023 Lab Results Component Value Date GLUCOSE 226 (H) 09/12/2023 CALCIUM 8.9 11/11/2023 NA 138 11/11/2023 K 4.2 11/11/2023 CO2 29 11/11/2023 CL 104 11/11/2023 BUN 14 11/11/2023 CREATININE 0.73 11/11/2023 EF BP Date Value Ref Range Status 09/10/2024 74 55 - 100 % Final Echocardiogram 09/10/24: reviewed with patient in the office Left Ventricle: Left ventricle is smaller than normal. Mildly increased wall thickness. Normal left ventricular systolic function. EF by 2D Simpsons Biplane is 74%. Global longitudinal strain is -18.1%. Right Ventricle: Right ventricle size is normal. Low normal systolic function. Left Atrium: Left atrium is moderately dilated. LA Vol Index A/L is 47 mL/m2. Right Atrium: Right atrium is moderately dilated. Aortic Valve: TAVR with Evolut FX bioprosthetic aortic valve with a size of 26 mm. AV mean gradient is 8 mmHg. No cusp thickening. No cusp calcification. No regurgitation. AV mean gradient is 8 mmHg. AV peak gradient is 16 mmHg. AV AT is 91.34 ms. AV area by continuity VTI is 1.4 cm2. Mitral Valve: Valve structure is normal. MV mean gradient is 16 mmHg. Thickened leaflets. Severely calcified leaflets. Mild to moderate (1-2+) regurgitation. Severe stenosis noted. MV mean gradient is 16 mmHg. MV PHT is 210.0 ms. Tricuspid Valve: Valve structure is normal. Moderate (2+) regurgitation. Severely elevated RVSP. RVSP is 70 mmHg. IVC/Hepatic Veins: IVC diameter is normal and decreases greater than 50% during inspiration; therefore the estimated right atrial pressure is normal (~3 mmHg). Elizabeth Ortiz APRN - SENIOR WEB ANALYST [1] Allergies Allergen Reactions Lisinopril Cough Mirtazapine Other Contributed to trouble with memory. Also caused anxiety and irritability Shellfish-Derived Products Diarrhea and Swelling Statins Diarrhea [2] Current Outpatient Medications: albuterol 108 (90 Base) MCG/ACT inhaler, Inhale 2 puffs every 6 hours as needed for wheezing., Disp: , Rfl: aspirin 81 MG EC tablet, Take 81 mg by mouth daily., Disp: , Rfl: atorvastatin (Lipitor) 40 MG tablet, Take 40 mg by mouth Nightly., Disp: , Rfl: cholecalciferol (Vitamin D-3) 25 MCG (1000 UT) tablet, Take 2,000 Units by mouth daily., Disp: , Rfl: clopidogrel (Plavix) 75 MG tablet, Take 75 mg by mouth daily., Disp: , Rfl: cycloSPORINE (Restasis) 0.05 % ophthalmic emulsion, 1 drop in the morning and 1 drop in the evening., Disp: , Rfl: furosemide (Lasix) 40 MG tablet, Take 40 mg by mouth daily., Disp: , Rfl: insulin glargine (Lantus) 100 UNIT/ML pen, Inject 30 Units under the skin Nightly., Disp: , Rfl: Insulin Lispro (Humalog) 100 UNIT/ML solution injection, Inject 15 Units under the skin in the morning and 15 Units at noon and 15 Units in the evening. Inject with meals., Disp: , Rfl: losartan (Cozaar) 50 MG tablet, Take 50 mg by mouth daily., Disp: , Rfl: metoprolol succinate XL (Toprol-XL) 100 MG 24 hr tablet, Take 100 mg by mouth daily. Do not crush or chew., Disp: , Rfl: Multiple Vitamin (multivitamin) tablet, Take 1 tablet by mouth daily., Disp: , Rfl: Multiple Vitamins-Minerals (PRESERVISION AREDS PO), Take 1 capsule by mouth in the morning and 1 capsule in the evening., Disp: , Rfl: nitroglycerin (Nitrostat) 0.4 MG SL tablet, Place 0.4 mg under the tongue every 5 minutes as needed for chest pain., Disp: , Rfl: potassium chloride CR (Klor-Con M20) 20 MEQ ER tablet, Take 20 mEq by mouth daily. Do not crush or chew., Disp: , Rfl: amoxicillin (Amoxil) 500 MG capsule, Take 4 caps (2000 mg) 1 hour prior to dental procedure., Disp: 12 capsule, Rfl: 11 [3] Past Medical History: Diagnosis Date Aortic stenosis Diabetes mellitus (HCC) Heart valve disease aortic stenosis Hyperlipidemia Hypertension Type II diabetes mellitus (HCC) [4] Past Surgical History: Procedure Laterality Date CARDIAC CATHETERIZATION N/A 09/11/2023 Performed by Erick Edwards MD at [facility] OR CORONARY ARTERY BYPASS GRAFT 04/10/1998 MACARIO- LAD; left radial to the diagonal CORONARY STENT PLACEMENT 01/04/2021 NICO ostial Lcx [5] Family History Problem Relation Name Age of Onset COPD Mother Heart failure Mother Hypertension Father Aortic aneurysm Father Aortic aneurysm Sister Hypertension Sister Hypertension Brother Diabetes Brother OFFICE VISIT Observed: 09/10/2024 3:00 PM Status: COMPLETED Source: [facility] [employer] [facility] [id number] Magnolia Fisher [birth year] F Date Provider Department Center 09/10/2024 ELIZABETH CARBAJAL [facility] [address] Family History Problem Relation Age of Onset COPD Mother Heart failure Mother Hypertension Father Aortic aneurysm Father Aortic aneurysm Sister Hypertension Sister Hypertension Brother Diabetes Brother Family Status - Relation Status Age at Mother Father Sister Brother Level of Service:64586 OK OFFICE/OUTPATIENT ESTABLISHED MOD MDM 30 MIN Reason for Visit and Comments: 1 Year Follow-up [670] PROGRESS NOTE Observed: 09/10/2024 7:47 AM Status: COMPLETED Source: [facility] ([employer]) [facility] S/p TAVR on 09/11/23 with a 2 6 mm Medtronic Evolut valve -NYHA Class I -continue DAPT -reviewed lifelong SBE prophylaxis-amoxicillin prescription sent to pharmacy -one year echo to be done today PROGRESS NOTE Observed: 09/10/2024 7:44 AM Status: COMPLETED Source: [facility] BP well controlled. -continue current doses of losartan, Toprol XL PROGRESS NOTE Observed: 09/10/2024 7:44 AM Status: COMPLETED Source: [facility] Hx of CABG and PCI with NICO to LAD in 2020 -denies angina -continue DAPT -continue atorvastatin, metoprolol succinate CNOV Observed: 09/03/2024 9:00 AM Status: COMPLETED Source: [facility] Office Visit (MEWO) MAGNOLIA FISHER ([id number]) 1940 [address] [facility] Date Time Provider Department 09/03/24 9:00 AM JOANIE STONE [facility] During your visit today, we recorded the following information about you: Joanie Stone RPh 09/03/2024 9:29 AM Signed Primary Care Pharmacy Visit CC (Reason for Consult): (E11.9, Z79.4) Type 2 diabetes mellitus without complication, with long-term current use of insulin ([facility]) (primary encounter diagnosis) Goal(s): A1c <8% Last Collaborating Provider Visit: 07/10/[address] Juan José Cooper Phillip is a 84 year old female presenting for follow up visit in person. Patient consents to pharmacy collaborative practice agreement. Last Pharmacy Visit: 07/02/24 Interim Events: - 07/10/24 A1c results: 7.1% (Increase from 6.8% HPI: Here with daughter, Nicole Reports doing well lately States had a bout of shingles, still having some pain from it but its improving Has not been walking as much as before since losing her dog and then recently had shingles States sometimes she worries about having a low blood sugar overnight and not sure if she should have a snack before bed. Denies any episodes of hypoglycemia overnight Current DM Medications: Basaglar 20 units once daily every evening Humalog 6 units three times daily before meals; 4 units if replacing meal with protein shake Previously Trialed DM Meds: Basaglar Metformin Jardiance - cost Invokana Diet Denies any recent changes, diet is consistent every day Drinking Glucerna at least once a day GLYCEMIC CONTROL: Glucometer present at visit: Yes - Maryann 3 reader Hypoglycemia: No CGM Data Past medical history reviewed. ALLERGIES Allergen Reactions Lisinopril Cough Resolved after stopped medication Remeron [Mirtazapin* Other: See Comments Contributed to trouble with memory. Also caused anxiety and irritability Seasonal Allergies Other: See Comments wheezing Current Outpatient Medications Medication Sig Dispense Refill Blood-Glucose Sensor (FREESTYLE MARYANN 3 SENSOR) maynor Apply new sensor every fourteen (14) days to upper arm. 6 each 4 blood sugar diagnostic (FREESTYLE PRECISION LORRIE STRIPS) test strip Pt tests approx 4 times after putting on new sensor if close or normal. If not may do more often. 50 Each 0 insulin lispro (HUMALOG KWIKPEN INSULIN) 100 unit/mL Take 6 units prior to breakfast, 6 units prior to lunch, and 6 units prior to dinner. If replacing meal with a protein shake, take 4 units with shake. Max 18 units/day. [email or web address] mL 3 insulin glargine (LANTUS SOLOSTAR U-100 INSULIN) 100 unit/mL (3 mL) Inject 20 Units subcutaneously daily at bedtime. 15 mL 1 atorvastatin (LIPITOR) 40 mg tablet Take 1 tablet by mouth once daily. 90 tablet 3 losartan (COZAAR) 50 mg tablet Take 1 tablet by mouth once daily. 90 tablet 3 metoprolol succinate ER (TOPROL XL) 100 mg Take 1 tablet by mouth once daily. 90 tablet 3 Blood-Glucose Meter,Continuous (FREESTYLE MARYANN 3 READER) [facility] Use to check blood sugar at least four (4) times daily. 1 Each 0 cycloSPORINE (RESTASIS) 0.05 % ophthalmic emulsion Use 1 Drop in both eyes two times a day. (Dr. Candelaria--started 2 weeks ago) potassium chloride ER (KLOR-CON) 20 mEq tablet clopidogrel (PLAVIX) 75 mg tablet Take 75 mg by mouth once daily. vit A/vit C/vit E/zinc/copper (PRESERVISION AREDS ORAL) Take by mouth twice daily. furosemide (LASIX) 40 mg tablet Take 40 mg by mouth once daily. (Patient not taking: Reported on 07/10/2024) aspirin, enteric coated (ASPIRIN, ENTERIC COATED) 81 mg EC tablet Take 81 mg by mouth once daily. jamhvvje-qaj-qpxb-FA-lutein (CENTRUM SILVER WOMEN) 8 mg iron-400 mcg-300 mcg tab Take 1 tablet by mouth daily Lancets lancets Test blood sugar(s) 3 times daily. Dx: Type 2 DM - Controlled E11.65 Insulin: Yes 400 Each 3 nitroglycerin sublingual (NITROQUICK) 0.4 mg SL tablet Dissolve 0.4 mg under the tongue as needed. If no pain relief call 911. Dr. Hoyos. 0 vitamin b complex tab Take 1 tablet by mouth once daily. 0 Cholecalciferol, Vitamin D3, 2,000 unit Tab Take 1 capsule by mouth one time daily 0 albuterol HFA (PROAIR HFA) 90 mcg/actuation inhaler Inhale 2 Puffs as instructed every 4 hours as needed. 3 Inhaler 1 No current facility-administered medications for this visit. Pill bottles are not present. Adherence: denies missed doses. Rx coverage: Payor: [employer] MEDICARE / Plan: [employer] MEDIC[employer] PPO / Product Type: PPO / Medications affordable? Yes Enrolled in [employer] (Basaglar and Humalog) Patient Assistance Programs being utilized: [employer] Medication Status Renewal Due Where Delivered [employer] Culture Communication Basaglar Approved 03/31/25 Patient Home [employer] Culture Communication Humalog U100 Approved 03/31/25 Patient Home PHARMACOTHERAPY PREVENTATIVE MEDS: On ANGELA/ARB: Yes On Statin: Yes On ASA: Yes EXAM: There were no vitals taken for this visit. Last 3 Encounter BP Readings: Date: BP: 07/25/2024 136/73 07/10/2024 110/60 03/09/2024 112/57 Wt: 65 kg (143 lb 4.8 oz) BMI: 27.77 kg/(m2) LABS: Lab Results Component Value Date HBA1C 7.1 07/10/2024 HBA1C 6.8 03/10/2024 HBA1C 7.0 12/31/2023 HBA1C 6.6 06/05/2023 HBA1C 6.6 02/11/2023 HBA1C 7.6 05/13/2021 HBA1C 9.0 08/06/2020 HBA1C 8.1 04/03/2018 Glucose 110 03/10/2024 BUN 10 03/10/2024 Creatinine 0.62 03/10/2024 Sodium 138 03/10/2024 Potassium 4.3 03/10/2024 Chloride 100 03/10/2024 CO2 29 03/10/2024 Protein, Total 6.7 03/10/2024 Albumin 4.1 03/10/2024 Calcium 9.4 03/10/2024 Alkaline Phosphatase 121 03/10/2024 Bilirubin, Total 1.2 03/10/2024 AST 37 03/10/2024 ALT 25 03/10/2024 Lab Results Component Value Date CHOL 111 03/10/2024 CHOL 133 05/13/2021 LDL 42 03/10/2024 LDL 43 11/13/2021 LDL 56 05/13/2021 HDL 59 03/10/2024 HDL 58 05/13/2021 TG 49 03/10/2024 TG 95 05/13/2021 Albumin/Creat Ratio (mg/g) Date Value 02/11/2023 <20 eGFR-All Other Races (.) Date Value 05/13/2021 >60 Estimated Glomerular Filtration Rate (mL/min/1.73m?) Date Value 03/10/2024 90 ASSESSMENT/PLAN: 1. Type 2 diabetes mellitus without complication, with long-term current use of insulin ([facility]) - ICD9: 250.00, V58.67, ICD10: E11.9, Z79.4 - Controlled - Continue current medications - Statin prescribed - atorvastatin - Blood glucose monitoring on a continuous glucose monitoring schedule - Counseled on healthy diet and regular exercise. Discussed may have a snack with protein in the evening to reduce risk of hypoglycemia overnight, if feeling shaky before bed. - Discussed diabetic education issues of hypoglycemic/hyperglycemic symptoms - Follow up in 3 months, sooner should any other issues arise. Overdue Diabetes Health Maintenance: Health Maintenance - Diabetes Topic Date Due Diabetic Foot Exam 02/15/2024 Follow Up: Next PCP visit: 10/12/24 Next PharmD visit: 12/03/24 Joanie Stone, PharmD, BCACP Primary Care Clinical Cementer Machine Joiner I spent a total of 25 minutes on the date of the service which included preparing to see the patient, [id number] patient care, completing clinical documentation, counseling and educating the patient/family/caregiver, and ordering medications, tests, or procedures. Referring Provider: SELF [200] Allergies As of Date: 09/03/2024 Noted Allergy Reaction LISINOPRIL 06/06/2011 3 - Cough Comments: Resolved after stopped medication REMERON (MIRTAZAPINE) 11/13/2021 14 - Other: See Comments Comments: Contributed to trouble with memory. Also caused anxiety and irritability SEASONAL ALLERGIES 06/26/2013 14 - Other: See Comments Comments: wheezing Date Reviewed: 07/25/2024 Reviewed by: Rody Vazquez MA - Fully Assessed Reason for Visit: Diabetes [34] Primary Visit Diagnosis:Type 2 diabetes mellitus without complication, with long-term current use of insulin (HCC) [E11.9, Z79.4] Order(s):Order #: [id number] Prescriptions as of 09/03/2024 - Insulin Forbes, Disposable, (EASY COMFORT PEN NEEDLES) 32 gauge x 5/32 Use to inject insulin four times daily - Blood-Glucose Sensor (FREESTYLE MARYANN 3 SENSOR) maynor Apply new sensor every fourteen (14) days to upper arm. - blood sugar diagnostic (FREESTYLE PRECISION LORRIE STRIPS) test strip Pt tests approx 4 times after putting on new sensor if close or normal. If not may do more often. - insulin lispro (HUMALOG KWIKPEN INSULIN) 100 unit/mL Take 6 units prior to breakfast, 6 units prior to lunch, and 6 units prior to dinner. If replacing meal with a protein shake, take 4 units with shake. Max 18 units/day. ENROLLED IN [employer] PAP - insulin glargine (LANTUS SOLOSTAR U-100 INSULIN) 100 unit/mL (3 mL) Inject 20 Units subcutaneously daily at bedtime. - atorvastatin (LIPITOR) 40 mg tablet Take 1 tablet by mouth once daily. - losartan (COZAAR) 50 mg tablet Take 1 tablet by mouth once daily. - metoprolol succinate ER (TOPROL XL) 100 mg Take 1 tablet by mouth once daily. - Blood-Glucose Meter,Continuous (FREESTYLE MARYANN 3 READER) misc Use to check blood sugar at least four (4) times daily. - cycloSPORINE (RESTASIS) 0.05 % ophthalmic emulsion Use 1 Drop in both eyes two times a day. (Dr. Candelaria--started 2 weeks ago) - potassium chloride ER (KLOR-CON) 20 mEq tablet - clopidogrel (PLAVIX) 75 mg tablet Take 75 mg by mouth once daily. - vit A/vit C/vit E/zinc/copper (PRESERVISION AREDS ORAL) Take by mouth twice daily. - furosemide (LASIX) 40 mg tablet Take 40 mg by mouth once daily. - aspirin, enteric coated (ASPIRIN, ENTERIC COATED) 81 mg EC tablet Take 81 mg by mouth once daily. - qvujhwup-oeg-kzfz-FA-lutein (CENTRUM SILVER WOMEN) 8 mg iron-400 mcg-300 mcg tab Take 1 tablet by mouth daily - Lancets lancets Test blood sugar(s) 3 times daily. Dx: Type 2 DM - Controlled E11.65 Insulin: Yes - nitroglycerin sublingual (NITROQUICK) 0.4 mg SL tablet Dissolve 0.4 mg under the tongue as needed. If no pain relief call 911. Dr. Hoyos. - vitamin b complex tab Take 1 tablet by mouth once daily. - Cholecalciferol, Vitamin D3, 2,000 unit Tab Take 1 capsule by mouth one time daily - albuterol HFA (PROAIR HFA) 90 mcg/actuation inhaler Inhale 2 Puffs as instructed every 4 hours as needed. Meds Comments as of 08/30/2010: Problem List As Of Date 09/03/2024 Noted Resolved MYALGIA AND MYOSITIS NOS [[id number]] Mixed hyperlipidemia [E78.2] Essential hypertension [I10] Class 1 obesity due to excess calories with ser* 02/13/2021 CERVICAL DISC DEGEN [M50.30] 01/23/2006 Type 2 diabetes mellitus, uncontrolled [BIF1501]01/23/2006 05/14/2022 Cervical radiculopathy [[id number]] 01/23/2006 ESOPHAGEAL REFLUX [K21.9] 07/29/2006 RETINAL HEMORRHAGE [H35.60] 02/27/2007 BONE AND CARTILAGE DIS NOS [M89.9, M94.9] 05/27/2007 Acute gastritis without mention of hemorrhage [*04/04/2010 05/14/2022 Diaphragmatic hernia without mention of obstruc*04/04/2010 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 Please contact Mark WelchD at [phone] with any questions regarding this script. Sig: Use to inject insulin four times daily Encounter Status:Closed by JOANIE STONE on 09/03/24 PROGRESS Observed: 09/03/2024 9:00 AM Status: COMPLETED Source: [facility] ID: [id number] Author: JOANIE STONE [facility] Service: ? Author Type: Pharmacist Type: Progress Notes Filed: 09/03/2024 09:29 Note Text: Primary Care Pharmacy Visit CC (Reason for Consult): (E11.9, Z79.4) Type 2 diabetes mellitus without complication, with long-term current use of insulin (HCC) (primary encounter diagnosis) Goal(s): A1c <8% Last Collaborating Provider Visit: 07/10/[address] Juan José Cooper Phillip is a 84 year old female presenting for follow up visit in person. Patient consents to pharmacy collaborative practice agreement. Last Pharmacy Visit: 07/02/24 Interim Events: - 07/10/24 A1c results: 7.1% (Increase from 6.8% HPI: Here with daughter, Nicole Reports doing well lately States had a bout of shingles, still having some pain from it but its improving Has not been walking as much as before since losing her dog and then recently had shingles States sometimes she worries about having a low blood sugar overnight and not sure if she should have a snack before bed. Denies any episodes of hypoglycemia overnight Current DM Medications: Basaglar 20 units once daily every evening Humalog 6 units three times daily before meals; 4 units if replacing meal with protein shake Previously Trialed DM Meds: Basaglar Metformin Jardiance - cost Invokana Diet Denies any recent changes, diet is consistent every day Drinking Glucerna at least once a day GLYCEMIC CONTROL: Glucometer present at visit: Yes - Maryann 3 reader Hypoglycemia: No CGM Data Past medical history reviewed. ALLERGIES Allergen Reactions Lisinopril Cough Resolved after stopped medication Remeron [Mirtazapin* Other: See Comments Contributed to trouble with memory. Also caused anxiety and irritability Seasonal Allergies Other: See Comments wheezing Current Outpatient Medications Medication Sig Dispense Refill Blood-Glucose Sensor (FREESTYLE MARYANN 3 SENSOR) maynor Apply new sensor every fourteen (14) days to upper arm. 6 each 4 blood sugar diagnostic (FREESTYLE PRECISION LORRIE STRIPS) test strip Pt tests approx 4 times after putting on new sensor if close or normal. If not may do more often. 50 Each 0 insulin lispro (HUMALOG KWIKPEN INSULIN) 100 unit/mL Take 6 units prior to breakfast, 6 units prior to lunch, and 6 units prior to dinner. If replacing meal with a protein shake, take 4 units with shake. Max 18 units/day. [email or web address] P[facility] 30 mL 3 insulin glargine (LANTUS SOLOSTAR U-100 INSULIN) 100 unit/mL (3 mL) Inject 20 Units subcutaneously daily at bedtime. 15 mL 1 atorvastatin (LIPITOR) 40 mg tablet Take 1 tablet by mouth once daily. 90 tablet 3 losartan (COZAAR) 50 mg tablet Take 1 tablet by mouth once daily. 90 tablet 3 metoprolol succinate ER (TOPROL XL) 100 mg Take 1 tablet by mouth once daily. 90 tablet 3 Blood-Glucose Meter,Continuous (FREESTYLE MARYANN 3 READER) [facility] Use to check blood sugar at least four (4) times daily. 1 Each 0 cycloSPORINE (RESTASIS) 0.05 % ophthalmic emulsion Use 1 Drop in both eyes two times a day. (Dr. Candelaria--started 2 weeks ago) potassium chloride ER (KLOR-CON) 20 mEq tablet clopidogrel (PLAVIX) 75 mg tablet Take 75 mg by mouth once daily. vit A/vit C/vit E/zinc/copper (PRESERVISION AREDS ORAL) Take by mouth twice daily. furosemide (LASIX) 40 mg tablet Take 40 mg by mouth once daily. (Patient not taking: Reported on 07/10/2024) aspirin, enteric coated (ASPIRIN, ENTERIC COATED) 81 mg EC tablet Take 81 mg by mouth once daily. mcnoskun-usi-sawg-FA-lutein (CENTRUM SILVER WOMEN) 8 mg iron-400 mcg-300 mcg tab Take 1 tablet by mouth daily Lancets lancets Test blood sugar(s) 3 times daily. Dx: Type 2 DM - Controlled E11.65 Insulin: Yes 400 Each 3 nitroglycerin sublingual (NITROQUICK) 0.4 mg SL tablet Dissolve 0.4 mg under the tongue as needed. If no pain relief call 911. Dr. Hoyos. 0 vitamin b complex tab Take 1 tablet by mouth once daily. 0 Cholecalciferol, Vitamin D3, 2,000 unit Tab Take 1 capsule by mouth one time daily 0 albuterol HFA (PROAIR HFA) 90 mcg/actuation inhaler Inhale 2 Puffs as instructed every 4 hours as needed. 3 Inhaler 1 No current facility-administered medications for this visit. Pill bottles are not present. Adherence: denies missed doses. Rx coverage: Payor: [employer] MEDICARE / Plan: [employer] MEDICARE PPO / Product Type: PPO / Medications affordable? Yes Enrolled in [employer] (Basaglar and Humalog) Patient Assistance Programs being utilized: [employer] Medication Status Renewal Due Where Delivered [employer] Culture Communication Basaglar Approved 03/31/25 Patient Home [employer] Culture Communication Humalog U100 Approved 03/31/25 Patient Home PHARMACOTHERAPY PREVENTATIVE MEDS: On ANGELA/ARB: Yes On Statin: Yes On ASA: Yes EXAM: There were no vitals taken for this visit. Last 3 Encounter BP Readings: Date: BP: 07/25/2024 136/73 07/10/2024 110/60 03/09/2024 112/57 Wt: 65 kg (143 lb 4.8 oz) BMI: 27.77 kg/(m2) LABS: Lab Results Component Value Date HBA1C 7.1 07/10/2024 HBA1C 6.8 03/10/2024 HBA1C 7.0 12/31/2023 HBA1C 6.6 06/05/2023 HBA1C 6.6 02/11/2023 HBA1C 7.6 05/13/2021 HBA1C 9.0 08/06/2020 HBA1C 8.1 04/03/2018 Glucose 110 03/10/2024 BUN 10 03/10/2024 Creatinine 0.62 03/10/2024 Sodium 138 03/10/2024 Potassium 4.3 03/10/2024 Chloride 100 03/10/2024 CO2 29 03/10/2024 Protein, Total 6.7 03/10/2024 Albumin 4.1 03/10/2024 Calcium 9.4 03/10/2024 Alkaline Phosphatase 121 03/10/2024 Bilirubin, Total 1.2 03/10/2024 AST 37 03/10/2024 ALT 25 03/10/2024 Lab Results Component Value Date CHOL 111 03/10/2024 CHOL 133 05/13/2021 LDL 42 03/10/2024 LDL 43 11/13/2021 LDL 56 05/13/2021 HDL 59 03/10/2024 HDL 58 05/13/2021 TG 49 03/10/2024 TG 95 05/13/2021 Albumin/Creat Ratio (mg/g) Date Value 02/11/2023 <20 eGFR-All Other Races (.) Date Value 05/13/2021 >60 Estimated Glomerular Filtration Rate (mL/min/1.73m?) Date Value 03/10/2024 90 ASSESSMENT/PLAN: 1. Type 2 diabetes mellitus without complication, with long-term current use of insulin ([facility]) - ICD9: 250.00, V58.67, ICD10: E11.9, Z79.4 - Controlled - Continue current medications - Statin prescribed - atorvastatin - Blood glucose monitoring on a continuous glucose monitoring schedule - Counseled on healthy diet and regular exercise. Discussed may have a snack with protein in the evening to reduce risk of hypoglycemia overnight, if feeling shaky before bed. - Discussed diabetic education issues of hypoglycemic/hyperglycemic symptoms - Follow up in 3 months, sooner should any other issues arise. Overdue Diabetes Health Maintenance: Health Maintenance - Diabetes Topic Date Due Diabetic Foot Exam 02/15/2024 Follow Up: Next PCP visit: 10/12/24 Next PharmD visit: 12/03/24 Joanie Stone, MarkD, BCACP Primary Care Clinical Cementer Machine Joiner I spent a total of 25 minutes on the date of the service which included preparing to see the patient, [id number] patient care, completing clinical documentation, counseling and educating the patient/family/caregiver, and ordering medications, tests, or procedures. PROGRESS Observed: 08/28/2024 10:10 AM Status: COMPLETED Source: [facility] HNO ID: [id number] Author: ?, ?, ? Service: ? Author Type: ? Type: Progress Notes Filed: 08/28/2024 10:20 Note Text: POPULATION HEALTH NAVIGATION OUTREACH Action/FYI Patient returned call and scheduled Wellness, pended labs, and colo fit. Patient has declined a colonoscopy, but is open to FOBT or FIT. Please review if the patient is a good candidate and have the office reach out to coordinate appropriate test. Dr. Can, Please approve these orders for the patient to be completed prior to their appointment. Additionally, feel free to place any other orders you deem necessary. Thank you! Pended Orders ID Status Description Pended By When Reason [id number] Pended ALBUMIN/CREATININE RATIO, URINE Yary Morales 08/28/24 1019 Reason for Outreach Returned Call/MyChart Patient Contacted: Spoke to patient/parent/or legal guardian Patient identified by name and date of : Yes Returned call/MyChart actions taken: Patient scheduled/pended orders: Medicare Annual Wellness Visit Colorectal Cancer Screening KED 09/03/2024 in [facility] with JOANIE STONE - DM f/up; Maryann download 10/12/2024 in [facility] with MI POOLE - 3 month f/u, hcc gaps; awv, ked, colo 12/07/2024 in [facility] with VALENCIA NICHOLAS - wellness visit , hcc gaps [facility] - 3 month f/u, hcc gaps; , ked, awv, colo 07/15/2025 in [facility] with MI POOLE - 3 month follow up Navigation Signature: Yayr Madrid August 28, 2024 10:17 AM PROGRESS Observed: 08/27/2024 1:23 PM Status: COMPLETED Source: [facility] HNO ID: [id number] Author: ?, ?, ? Service: ? Author Type: ? Type: Progress Notes Filed: 08/27/2024 13:28 Note Text: POPULATION HEALTH NAVIGATION OUTREACH Action/FYI Patient outreach for HCC Gaps; KED, COLO, AWV. Lvm and sent mychart to close gaps. Updated appointment notes. Reason for Outreach Care Gap/HCC or Scheduling Wellness Visits Care Gaps due: Medicare Annual Wellness Visit Colorectal Cancer Screening KED Patient Contacted: Unable or unnecessary to reach patient: Left message MyChart message sent HCC related Updated appointment notes Navigation Signature: Yary Madrid August 27, 2024 1:23 PM CHARLESTOUTROTIS Observed: 08/27/2024 12:00 AM Status: COMPLETED Source: [facility] Patient Outreach (NETNAV) MAGNOLIA FISHER ([id number]) 1940 F [facility] Date Time Provider Department 08/27/24 LORI CAN During your visit today, we recorded the following information about you: Yary Morales 08/27/2024 1:28 PM Signed POPULATION HEALTH NAVIGATION OUTREACH Action/FYI Patient outreach for HCC Gaps; KED, COLO, AWV. Lvm and sent mychart to close gaps. Updated appointment notes. Reason for Outreach Care Gap/HCC or Scheduling Wellness Visits Care Gaps due: Medicare Annual Wellness Visit Colorectal Cancer Screening KED Patient Contacted: Unable or unnecessary to reach patient: Left message MyChart message sent HCC related Updated appointment notes Navigation Signature: Yary Madrid August 27, 2024 1:23 PM aYry Morales 08/28/2024 10:20 AM Signed POPULATION HEALTH NAVIGATION OUTREACH Action/FYI Patient returned call and scheduled Wellness, pended labs, and colo fit. Patient has declined a colonoscopy, but is open to FOBT or FIT. Please review if the patient is a good candidate and have the office reach out to coordinate appropriate test. Dr. Can, Please approve these orders for the patient to be completed prior to their appointment. Additionally, feel free to place any other orders you deem necessary. Thank you! Pended Orders ID Status Description Pended By When Reason [id number] Pended ALBUMIN/CREATININE RATIO, URINE Yary Morales 08/28/24 1019 Reason for Outreach Returned Call/MyChart Patient Contacted: Spoke to patient/parent/or legal guardian Patient identified by name and date of : Yes Returned call/MyChart actions taken: Patient scheduled/pended orders: Medicare Annual Wellness Visit Colorectal Cancer Screening KED 09/03/2024 in [facility] with JOANIE STONE - DM f/up; Maryann download 10/12/2024 in [facility] with MI POOLE - 3 month f/u, hcc gaps; awv, ked, colo 12/07/2024 in [facility] with VALENCIA NICHOLAS - wellness visit , hcc gaps 03/22/2025 in [facility] with LORI CAN - 3 month f/u, hcc gaps; , ked, awv, colo 07/[facility] - 3 month follow up Navigation Signature: Yary Madrid August 28, 2024 10:17 AM Yary Morales 08/28/2024 10:20 AM Signed Addended by: YARY MORALES on: 08/28/2024 10:20 AM Modules accepted: Lori Waller MD 09/24/2024 6:55 PM Signed Filed Lori Waller MD 09/24/2024 6:55 PM Signed Addended by: LORI CAN on: 09/24/2024 06:55 PM Modules accepted: Pat Tovar RN 09/24/2024 7:06 PM Signed Pt called and is notified of providers message. Pt voices understanding. Pat Navarrete RN Allergies As of Date: 08/27/2024 Noted Allergy Reaction LISINOPRIL 06/06/2011 3 - Cough Comments: Resolved after stopped medication REMERON (MIRTAZAPINE) 11/13/2021 14 - Other: See Comments Comments: Contributed to trouble with memory. Also caused anxiety and irritability SEASONAL ALLERGIES 06/26/2013 14 - Other: See Comments Comments: wheezing Date Reviewed: 07/25/2024 Reviewed by: Rody Vazquze MA - Fully Assessed Reason for Visit: Population Health Navigation Outreach [3910] Cmt: Juliann Cassidy Primary Visit Diagnosis:Type 2 diabetes mellitus without complication, with long-term current use of insulin (HCC) [E11.9, Z79.4] Other Visit Diagnosis:Screening for colon cancer [Z12.11] Order(s):ALBUMIN/CREATININE RATIO, URINE [SQUACR] Order #: [id number] FUTURE IMMUNOCHEMICAL FECAL OCCULT BLOOD TEST [SQIFOBT] Order #: [id number]. #:[id number] Prescriptions as of 09/24/2024 - Insulin Forbes, Disposable, (EASY COMFORT PEN NEEDLES) 32 gauge x 5/32 Use to inject insulin four times daily - Blood-Glucose Sensor (FREESTYLE MARYANN 3 SENSOR) maynor Apply new sensor every fourteen (14) days to upper arm. - blood sugar diagnostic (FREESTYLE PRECISION LORRIE STRIPS) test strip Pt tests approx 4 times after putting on new sensor if close or normal. If not may do more often. - insulin lispro (HUMALOG KWIKPEN INSULIN) 100 unit/mL Take 6 units prior to breakfast, 6 units prior to lunch, and 6 units prior to dinner. If replacing meal with a protein shake, take 4 units with shake. Max 18 units/day. ENROLLED IN [employer] PAP - insulin glargine (LANTUS SOLOSTAR U-100 INSULIN) 100 unit/mL (3 mL) Inject 20 Units subcutaneously daily at bedtime. - atorvastatin (LIPITOR) 40 mg tablet Take 1 tablet by mouth once daily. - losartan (COZAAR) 50 mg tablet Take 1 tablet by mouth once daily. - metoprolol succinate ER (TOPROL XL) 100 mg Take 1 tablet by mouth once daily. - Blood-Glucose Meter,Continuous (FREESTYLE MARYANN 3 READER) [facility] Use to check blood sugar at least four (4) times daily. - cycloSPORINE (RESTASIS) 0.05 % ophthalmic emulsion Use 1 Drop in both eyes two times a day. (Dr. Canedlaria--started 2 weeks ago) - potassium chloride ER (KLOR-CON) 20 mEq tablet - clopidogrel (PLAVIX) 75 mg tablet Take 75 mg by mouth once daily. - vit A/vit C/vit E/zinc/copper (PRESERVISION AREDS ORAL) Take by mouth twice daily. - furosemide (LASIX) 40 mg tablet Take 40 mg by mouth once daily. - aspirin, enteric coated (ASPIRIN, ENTERIC COATED) 81 mg EC tablet Take 81 mg by mouth once daily. - dnrtqvvm-mds-czzm-FA-lutein (CENTRUM SILVER WOMEN) 8 mg iron-400 mcg-300 mcg tab Take 1 tablet by mouth daily - Lancets lancets Test blood sugar(s) 3 times daily. Dx: Type 2 DM - Controlled E11.65 Insulin: Yes - nitroglycerin sublingual (NITROQUICK) 0.4 mg SL tablet Dissolve 0.4 mg under the tongue as needed. If no pain relief call 911. Dr. Hoyos. - vitamin b complex tab Take 1 tablet by mouth once daily. - Cholecalciferol, Vitamin D3, 2,000 unit Tab Take 1 capsule by mouth one time daily - albuterol HFA (PROAIR HFA) 90 mcg/actuation inhaler Inhale 2 Puffs as instructed every 4 hours as needed. Meds Comments as of 08/30/2010: Problem List As Of Date 08/27/2024 Noted Resolved MYALGIA AND MYOSITIS NOS [[id number]] Mixed hyperlipidemia [E78.2] Essential hypertension [I10] Class 1 obesity due to excess calories with ser* 02/13/2021 CERVICAL DISC DEGEN [M50.30] 01/23/2006 Type 2 diabetes mellitus, uncontrolled [[id number]]01/23/2006 05/14/2022 Cervical radiculopathy [HMD7699] 01/23/2006 ESOPHAGEAL REFLUX [K21.9] 07/29/2006 RETINAL HEMORRHAGE [H35.60] 02/27/2007 BONE AND CARTILAGE DIS NOS [M89.9, M94.9] 05/27/2007 Acute gastritis without mention of hemorrhage [*04/04/2010 05/14/2022 Diaphragmatic hernia without mention of obstruc*04/04/2010 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] 05/22/2010 Sleep apnea [G47.30] 10/09/2011 Choledocholithiasis [K80.50] 04/07/2012 Chronic cholecystitis [K81.1] 04/07/2012 Gastroparesis [K31.84] 06/26/2013 Moderate aortic stenosis by prior echocardiogra*05/19/2018 Type 2 diabetes mellitus without complication, *11/13/2021 Secondary pulmonary arterial hypertension (HCC)*08/13/2022 Coronary artery disease involving port heiden harris*08/13/2022 Encounter Status:Closed by YARY MORALES on 08/27/24 PROGRESS Observed: 07/25/2024 11:27 AM Status: COMPLETED Source: [facility] HNO ID: [id number] Author: PB DASILVA MD Service: ? Author Type: Physician Type: Progress Notes Filed: 07/25/2024 11:31 Note Text: [facility] Subjective Magnolia Fisher is a 84 year old female. Patient presents with: Rash: R side ribs x this AM, soreness and fatigue yesterday Rash: Location: right side below the axilla and on the breast Duration: noticed yesterday Pruritis: Pain: too tender to wear her bra Change: Bleeding/ulceration/blister/pustule: red rash Contacts with rash: No Exposure: Recent illness: feeling tired. Treatment: none Patient had chickenpox as a child. She had zoster vaccine in 2012. Rash Review of Systems Skin: Positive for rash. Objective BP 136/73 Pulse (!) 53 Temp 36.4 ?C (97.6 ?F) Resp 18 Wt 65 kg (143 lb 4.8 oz) SpO2 99% BMI 27.77 kg/m? Physical Exam Constitutional: Appearance: She is not ill-appearing. Comments: Accompanied by her daughter Skin: Comments: Dermatomal right T4 distribution Neurological: Mental Status: She is alert. {ASSESSMENT/PLAN: 1. Herpes zoster without complications - ICD9: 053.9, ICD10: B02.9 Shingles discussed. Shingles is a viral rash from prior chicken pox infection. Early antiviral medicine can reduce the length and severity of the shingles outbreak. The rash is contagious until all blisters or sores are dry. Until this avoid contact with women, unvaccinated (usually children under 1), or people with impaired immune systems who would be susceptible to geraldine the chicken pox. The site of the rash may have scaring (color change) after the infection is resolved. Pain, burning, or tingling from the rash may continue for days to several months after the infection-typically a few weeks. There is a vaccine that can reduce the chance of future shingles outbreaks, but for a few years after a shingles episode it probably does not provide benefit. - VALACYCLOVIR 1 GRAM TABLET Schedule follow-up with PCP if acetaminophen is not sufficient for pain control Pb Dasilva MD Differential Diagnoses - Herpes zoster is more likely for the following reason(s): suggested by HANDP Procedures CNOV Observed: 07/25/2024 11:15 AM Status: COMPLETED Source: [facility] Office Visit (WSTR) PHILLIPMAGNOLIA Allison ([id number]) 1940 F [facility] Date Time Provider Department 07/25/24 11:15 AM PB DASILVA [facility] During your visit today, we recorded the following information about you: Temperature Pulse Respiration Blood pressure 97.6 degrees 53/minute 18/minute 136/73 Weight 65 kg Pb Dasilva MD 07/25/2024 11:31 AM Signed [facility] Subjective Magnolia Cooper Phillip is a 84 year old female. Patient presents with: Rash: R side ribs x this AM, soreness and fatigue yesterday Rash: Location: right side below the axilla and on the breast Duration: noticed yesterday Pruritis: Pain: too tender to wear her bra Change: Bleeding/ulceration/blister/pustule: red rash Contacts with rash: No Exposure: Recent illness: feeling tired. Treatment: none Patient had chickenpox as a child. She had zoster vaccine in 2012. Rash Review of Systems Skin: Positive for rash. Objective BP 136/73 Pulse (!) 53 Temp 36.4 ?C (97.6 ?F) Resp 18 Wt 65 kg (143 lb 4.8 oz) SpO2 99% BMI 27.77 kg/m? Physical Exam Constitutional: Appearance: She is not ill-appearing. Comments: Accompanied by her daughter Skin: Comments: Dermatomal right T4 distribution Neurological: Mental Status: She is alert. {ASSESSMENT/PLAN: 1. Herpes zoster without complications - ICD9: 053.9, ICD10: B02.9 Shingles discussed. Shingles is a viral rash from prior chicken pox infection. Early antiviral medicine can reduce the length and severity of the shingles outbreak. The rash is contagious until all blisters or sores are dry. Until this avoid contact with women, unvaccinated (usually children under 1), or people with impaired immune systems who would be susceptible to geraldine the chicken pox. The site of the rash may have scaring (color change) after the infection is resolved. Pain, burning, or tingling from the rash may continue for days to several months after the infection-typically a few weeks. There is a vaccine that can reduce the chance of future shingles outbreaks, but for a few years after a shingles episode it probably does not provide benefit. - VALACYCLOVIR 1 GRAM TABLET Schedule follow-up with PCP if acetaminophen is not sufficient for pain control Pb Dasilva MD Differential Diagnoses - Herpes zoster is more likely for the following reason(s): suggested by HANDP Procedures Allergies As of Date: 07/25/2024 Noted Allergy Reaction LISINOPRIL 06/06/2011 3 - Cough Comments: Resolved after stopped medication REMERON (MIRTAZAPINE) 11/13/2021 14 - Other: See Comments Comments: Contributed to trouble with memory. Also caused anxiety and irritability SEASONAL ALLERGIES 06/26/2013 14 - Other: See Comments Comments: wheezing Date Reviewed: 07/25/2024 Reviewed by: Rody Vazquez MA - Fully Assessed Reason for Visit: Rash [1087] Cmt: R side ribs x this AM, soreness and fatigue yesterday Primary Visit Diagnosis:Herpes zoster without complications [B02.9] Order(s):valACYclovir (VALTREX) 1 gram tabletTake 1 tablet by mouth three times a day for 7 days.Disp: 21 tabletRfl: 0 Prescriptions as of 07/25/2024 - valACYclovir (VALTREX) 1 gram tablet Take 1 tablet by mouth three times a day for 7 days. - Blood-Glucose Sensor (FREESTYLE MARYANN 3 SENSOR) maynor Apply new sensor every fourteen (14) days to upper arm. - blood sugar diagnostic (FREESTYLE PRECISION LORRIE STRIPS) test strip Pt tests approx 4 times after putting on new sensor if close or normal. If not may do more often. - insulin lispro (HUMALOG KWIKPEN INSULIN) 100 unit/mL Take 6 units prior to breakfast, 6 units prior to lunch, and 6 units prior to dinner. If replacing meal with a protein shake, take 4 units with shake. Max 18 units/day. ENROLLED IN [employer] PAP - insulin glargine (LANTUS SOLOSTAR U-100 INSULIN) 100 unit/mL (3 mL) Inject 20 Units subcutaneously daily at bedtime. - atorvastatin (LIPITOR) 40 mg tablet Take 1 tablet by mouth once daily. - losartan (COZAAR) 50 mg tablet Take 1 tablet by mouth once daily. - metoprolol succinate ER (TOPROL XL) 100 mg Take 1 tablet by mouth once daily. - Blood-Glucose Meter,Continuous (FREESTYLE MARYANN 3 READER) [facility] [place] Use to check blood sugar at least four (4) times daily. - cycloSPORINE (RESTASIS) 0.05 % ophthalmic emulsion Use 1 Drop in both eyes two times a day. (Dr. Candelaria--started 2 weeks ago) - potassium chloride ER (KLOR-CON) 20 mEq tablet - clopidogrel (PLAVIX) 75 mg tablet Take 75 mg by mouth once daily. - vit A/vit C/vit E/zinc/copper (PRESERVISION AREDS ORAL) Take by mouth twice daily. - furosemide (LASIX) 40 mg tablet Take 40 mg by mouth once daily. - aspirin, enteric coated (ASPIRIN, ENTERIC COATED) 81 mg EC tablet Take 81 mg by mouth once daily. - wskamfhl-evs-wzsv-FA-lutein (CENTRUM SILVER WOMEN) 8 mg iron-400 mcg-300 mcg tab Take 1 tablet by mouth daily - Lancets lancets Test blood sugar(s) 3 times daily. Dx: Type 2 DM - Controlled E11.65 Insulin: Yes - nitroglycerin sublingual (NITROQUICK) 0.4 mg SL tablet Dissolve 0.4 mg under the tongue as needed. If no pain relief call 911. Dr. Hoyos. - vitamin b complex tab Take 1 tablet by mouth once daily. - Cholecalciferol, Vitamin D3, 2,000 unit Tab Take 1 capsule by mouth one time daily - albuterol HFA (PROAIR HFA) 90 mcg/actuation inhaler Inhale 2 Puffs as instructed every 4 hours as needed. Meds Comments as of 08/30/2010: Problem List As Of Date 07/25/2024 Noted Resolved MYALGIA AND MYOSITIS NOS [[id number]] Mixed hyperlipidemia [E78.2] Essential hypertension [I10] Class 1 obesity due to excess calories with ser* 02/13/2021 CERVICAL DISC DEGEN [M50.30] 01/23/2006 Type 2 diabetes mellitus, uncontrolled [[id number]]01/23/2006 05/14/2022 Cervical radiculopathy [BPV9748] 01/23/2006 ESOPHAGEAL REFLUX [K21.9] 07/29/2006 RETINAL HEMORRHAGE [H35.60] 02/27/2007 BONE AND CARTILAGE DIS NOS [M89.9, M94.9] 05/27/2007 Acute gastritis without mention of hemorrhage [*04/04/2010 05/14/2022 Diaphragmatic hernia without mention of obstruc*04/04/2010 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] 05/22/2010 Sleep apnea [G47.30] 10/09/2011 Choledocholithiasis [K80.50] 04/07/2012 Chronic cholecystitis [K81.1] 04/07/2012 Gastroparesis [K31.84] 06/26/2013 Moderate aortic stenosis by prior echocardiogra*05/19/2018 Type 2 diabetes mellitus without complication, *11/13/2021 Secondary pulmonary arterial hypertension (HCC)*08/13/2022 Coronary artery disease involving port heiden harris*08/13/2022 Prescriptions ordered this encounter Disp Refills Start End VALACYCLOVIR 1 GRAM TABLET 21 t* 0 07/25/2024 08/01/2024 Route: ORAL Sig: Take 1 tablet by mouth three times a day for 7 days. Level of Service: OFFICE/OUTPATIENT ESTABLISHED MOD MDM 30 MIN [10599] Encounter Status:Closed by SHWETA DASILVAIN on 07/25/24 PROGRESS Observed: 07/10/2024 12:35 PM Status: COMPLETED Source: [facility] HNO ID: [id number] Author: LORI CAN MD Service: ? Author Type: Physician Type: Progress Notes Filed: 07/27/2024 13:45 Note Text: This note was created using [employer]. Subjective Magnolia Fisher is a 84 year old female. Patient presents with: F/U 3 Month Magnolia is a 84-year-old female with a history of DM, presenting for a 3 month follow-up. Magnolia reports a firm area on her abdomen at the site of insulin injections. She has been administering insulin in the same area and has recently switched to the other side of her abdomen. She is currently using both long-acting and rapid-acting insulin. She denies any issues with her current insulin regimen. She reports that her blood glucose levels have been well-controlled, with occasional spikes up to 300 mg/dL, particularly in the morning before eating. These spikes occur after a full night's sleep and resolve quickly. She monitors her blood glucose levels using a CGM. She has not been walking as much recently due to the loss of her dog and poor weather conditions. She is trying to increase her activity levels by walking around the house and performing director medical, such as vacuuming, which she notes can cause dyspnea. She reports orthostatic lightheadedness when standing up too quickly, but denies any issues with hydration. She notes that her blood glucose levels tend to rise when she forgets to drink water in the morning and improve with hydration. She reports difficulty sleeping due to anxiety and worries about various aspects of her life, including her blood glucose levels. She denies any suicidal ideation or severe depression symptoms, but does report feeling sad at times, particularly due to the recent loss of her dog. She wishes she had more energy. PAST MEDICAL HISTORY Diagnosis Date Acute gastritis without mention of hemorrhage Aortic stenosis, mild 05/19/2018 Echocardiogram at [facility] 04/16/2018 Asthma (HCC) Coronary atherosclerosis of unspecified type of vessel, port heiden or graft Depression Diaphragmatic hernia without mention of obstruction or gangrene Esophageal reflux 07/29/2006 Hypersomnia with sleep apnea, unspecified Irritable bowel syndrome Localized osteoarthrosis not specified whether primary or secondary, unspecified site Myalgia and myositis, unspecified Obesity, unspecified Obstructive sleep apnea Other and unspecified hyperlipidemia Other specified gastritis Retinal hemorrhage 02/27/2007 Dr. Yu Type II or unspecified type diabetes mellitus without mention of complication, uncontrolled Unspecified essential hypertension Current Outpatient Medications Medication Sig blood sugar diagnostic (FREESTYLE PRECISION LORRIE STRIPS) test strip Pt tests approx 4 times after putting on new sensor if close or normal. If not may do more often. insulin lispro (HUMALOG KWIKPEN INSULIN) 100 unit/mL Take 6 units prior to breakfast, 6 units prior to lunch, and 6 units prior to dinner. If replacing meal with a protein shake, take 4 units with shake. Max 18 units/day. [email or web address] insulin glargine (LANTUS SOLOSTAR U-100 INSULIN) 100 unit/mL (3 mL) Inject 20 Units subcutaneously daily at bedtime. atorvastatin (LIPITOR) 40 mg tablet Take 1 tablet by mouth once daily. losartan (COZAAR) 50 mg tablet Take 1 tablet by mouth once daily. metoprolol succinate ER (TOPROL XL) 100 mg Take 1 tablet by mouth once daily. Blood-Glucose Meter,Continuous (FREESTYLE MARYANN 3 READER) [facility] [place] Use to check blood sugar at least four (4) times daily. cycloSPORINE (RESTASIS) 0.05 % ophthalmic emulsion Use 1 Drop in both eyes two times a day. (Dr. Candelaria--started 2 weeks ago) potassium chloride ER (KLOR-CON) 20 mEq tablet clopidogrel (PLAVIX) 75 mg tablet Take 75 mg by mouth once daily. vit A/vit C/vit E/zinc/copper (PRESERVISION AREDS ORAL) Take by mouth twice daily. aspirin, enteric coated (ASPIRIN, ENTERIC COATED) 81 mg EC tablet Take 81 mg by mouth once daily. zufcrzjt-uwf-mrqa-FA-lutein (CENTRUM SILVER WOMEN) 8 mg iron-400 mcg-300 mcg tab Take 1 tablet by mouth daily Lancets lancets Test blood sugar(s) 3 times daily. Dx: Type 2 DM - Controlled E11.65 Insulin: Yes nitroglycerin sublingual (NITROQUICK) 0.4 mg SL tablet Dissolve 0.4 mg under the tongue as needed. If no pain relief call 911. Dr. Hoyos. vitamin b complex tab Take 1 tablet by mouth once daily. Cholecalciferol, Vitamin D3, 2,000 unit Tab Take 1 capsule by mouth one time daily albuterol HFA (PROAIR HFA) 90 mcg/actuation inhaler Inhale 2 Puffs as instructed every 4 hours as needed. valACYclovir (VALTREX) 1 gram tablet Take 1 tablet by mouth three times a day for 7 days. Blood-Glucose Sensor (FREESTYLE MARYANN 3 SENSOR) maynor Apply new sensor every fourteen (14) days to upper arm. furosemide (LASIX) 40 mg tablet Take 40 mg by mouth once daily. (Patient not taking: Reported on 07/10/2024) No current facility-administered medications for this visit. Review of Systems Objective BP 110/60 Pulse (!) 58 Resp 14 Wt 66.5 kg (146 lb 9.7 oz) BMI 28.41 kg/m? Last 5 Encounter Wt Readings: Date: Wt: 07/10/2024 66.5 kg (146 lb 9.7 oz) 03/09/2024 68.4 kg (150 lb 12.7 oz) 12/31/2023 71.1 kg (156 lb 12 oz) 09/27/2023 69.9 kg (154 lb) 02/14/2023 68.5 kg (151 lb) No waist measurement recorded Estimated body mass index is 28.41 kg/m? as calculated from the following: Height as of 05/16/21: 153 cm (5' 0.24). Weight as of this encounter: 66.5 kg (146 lb 9.7 oz). Last 5 Encounter BP Readings: Date: BP: 07/10/2024 110/60 03/09/2024 112/57 12/31/2023 102/58 09/27/2023 121/66 02/14/2023 110/63 Physical Exam Constitutional: Appearance: Normal appearance. HENT: Head: Normocephalic. Eyes: Conjunctiva/sclera: Conjunctivae normal. Cardiovascular: Rate and Rhythm: Normal rate and regular rhythm. Heart sounds: Murmur heard. Systolic (LSB) murmur is present with a grade of 3/6. Pulmonary: Effort: Pulmonary effort is normal. Breath sounds: Normal breath sounds. Musculoskeletal: Right lower leg: No edema. Left lower leg: No edema. Skin: General: Skin is warm and dry. Neurological: General: No focal deficit present. Mental Status: She is alert and oriented to person, place, and time. Psychiatric: Mood and Affect: Mood normal. Behavior: Behavior normal. Thought Content: Thought content normal. Judgment: Judgment normal. Latest Ref Rng 02/11/2023 06/05/2023 12/31/2023 03/10/2024 Protein, Total 6.3 - 8.0 g/dL 6.5 6.9 6.7 Albumin 3.9 - 4.9 g/dL 4.2 4.0 4.1 Calcium 8.5 - 10.2 mg/dL 9.4 9.4 9.4 Bilirubin, Total 0.2 - 1.3 mg/dL 0.9 0.7 1.2 Alkaline Phosphatase 34 - 123 U/L 136 (H) 167 (H) 121 AST 13 - 35 U/L 26 35 37 (H) ALT 7 - 38 U/L 19 59 (H) 25 Glucose 74 - 99 mg/dL 170 (H) 111 (H) 110 (H) BUN 7 - 21 mg/dL 17 16 10 Creatinine 0.58 - 0.96 mg/dL 0.77 0.70 0.62 Sodium 136 - 144 mmol/L 142 140 138 Potassium 3.7 - 5.1 mmol/L 4.8 4.4 4.3 Chloride 98 - 107 mmol/L 103 101 100 CO2 22 - 30 mmol/L 28 28 29 Anion Gap 8 - 15 mmol/L 11 11 9 eGFR >=60 mL/min/1.73m? 78 87 90 WBC 3.70 - 11.00 k/uL 9.20 8.43 RBC 3.90 - 5.20 m/uL 4.14 4.15 Hemoglobin 11.5 - 15.5 g/dL 13.8 13.8 Hematocrit 36.0 - 46.0 % 42.9 42.1 MCV 80.0 - 100.0 fL 103.6 (H) 101.4 (H) MCH 26.0 - 34.0 pg 33.3 33.3 MCHC 30.5 - 36.0 g/dL 32.2 32.8 RDW-CV 11.5 - 15.0 % 12.9 12.2 Platelet Count 150 - 400 k/uL 270 227 MPV 9.0 - 12.7 fL 11.6 10.9 Absolute nRBC <0.01 k/uL <0.01 <0.01 Cholesterol, Total <200 mg/dL 126 111 Triglyceride <150 mg/dL 87 49 HDL Cholesterol >39 mg/dL 60 59 Non HDL Cholesterol <130 mg/dL 66 52 Fasting Time hrs 14 12 VLDL Cholesterol <30 mg/dL 17 10 TC:HDL Ratio <5.10 2.10 1.88 LDL Cholesterol <100 mg/dL 49 42 LDL:HDL Ratio <2.54 0.82 0.71 Creatinine, Ur Random (UCRR) 20.0 - 300.0 mg/dL 59.2 29.1 Albumin, Urine Random mg/L <12.0 <12.0 Albumin/Creat Ratio <20 -- Hemoglobin A1C 4.3 - 5.6 % 6.6 (H) 6.6 (H) 6.8 (H) Estimated Average Glucose mg/dL 143 143 148 Vitamin B12 232 - 1,245 pg/mL 746 Folate >4.7 ng/mL >20.0 Vitamin D 25 Hydroxy 31.0 - 80.0 ng/mL 32.4 58.2 Hemoglobin A1C (POCT) 4.3 - 5.6 % 7.0 ! Legend: (H) High ! 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 - Educated on rotating injection sites to prevent further lipohypertrophy; demonstrated alternative sites including thighs and back of arms. - Blood glucose levels occasionally spike to 300 mg/dL in the morning but return to baseline quickly; likely due to physiological glucose production overnight. - Advised to verify high CGM readings with fingerstick glucose checks. - Ordered vvnis-uk-pjcb A1c test today; previous A1c levels have been well-controlled. - Continue current insulin regimen; no adjustments needed at this time. - Follow-up with diabetes pharmacist Aravind for ongoing management. # Essential hypertension (I10) - Blood pressure well-controlled today. - Advised to continue current antihypertensive regimen. - Educated on the importance of hydration to maintain stable blood pressure. # Mixed hyperlipidemia (E78.2) - Previous lipid panels have been well-controlled. - Ordered lipid panel for next appointment in March; fasting not required for the upcoming test. # Vitamin D deficiency (E55.9) - Continue current vitamin D supplementation. - Ordered vitamin D level check for next appointment. # Encounter for immunization (Z23) - Discussed RSV and shingles vaccines; RSV vaccine to be considered in the fall, shingles vaccine available at the pharmacy. # Secondary pulmonary arterial hypertension (HCC) (I27.21) Most recent echo in May 2023 with pulmonary artery pressure 44. Continue following with cardiology. Lori Can MD Recording using [employer] software for draft documentation of the visit was discussed with the patient/authorized account executive sales representative; all questions welcomed and answered. Patient/authorized account executive sales representative agreed to proceed CNOV Observed: 07/10/2024 11:00 AM Status: COMPLETED Source: [facility] Office Visit (INTMWS) MAGNOLIA FISHER ([id number]) 1940 F T Date Time Provider Department 07/10/24 11:00 AM LORI CAN INTMWS During your visit today, we recorded the following information about you: Pulse Respiration Blood pressure Weight 58/minute 14/minute 110/60 66.5 kg Lori Can MD 07/27/2024 1:45 PM Signed This note was created using [employer]. Subjective Magnolia Fisher is a 84 year old female. Patient presents with: F/U 3 Month Magnolia is a 84-year-old female with a history of DM, presenting for a 3 month follow-up. Magnolia reports a firm area on her abdomen at the site of insulin injections. She has been administering insulin in the same area and has recently switched to the other side of her abdomen. She is currently using both long-acting and rapid-acting insulin. She denies any issues with her current insulin regimen. She reports that her blood glucose levels have been well-controlled, with occasional spikes up to 300 mg/dL, particularly in the morning before eating. These spikes occur after a full night's sleep and resolve quickly. She monitors her blood glucose levels using a CGM. She has not been walking as much recently due to the loss of her dog and poor weather conditions. She is trying to increase her activity levels by walking around the house and performing director medical, such as vacuuming, which she notes can cause dyspnea. She reports orthostatic lightheadedness when standing up too quickly, but denies any issues with hydration. She notes that her blood glucose levels tend to rise when she forgets to drink water in the morning and improve with hydration. She reports difficulty sleeping due to anxiety and worries about various aspects of her life, including her blood glucose levels. She denies any suicidal ideation or severe depression symptoms, but does report feeling sad at times, particularly due to the recent loss of her dog. She wishes she had more energy. PAST MEDICAL HISTORY Diagnosis Date Acute gastritis without mention of hemorrhage Aortic stenosis, mild 05/19/2018 Echocardiogram at [facility] 04/16/2018 Asthma (HCC) Coronary atherosclerosis of unspecified type of vessel, port heiden or graft Depression Diaphragmatic hernia without mention of obstruction or gangrene Esophageal reflux 07/29/2006 Hypersomnia with sleep apnea, unspecified Irritable bowel syndrome Localized osteoarthrosis not specified whether primary or secondary, unspecified site Myalgia and myositis, unspecified Obesity, unspecified Obstructive sleep apnea Other and unspecified hyperlipidemia Other specified gastritis Retinal hemorrhage 02/27/2007 Dr. Yu Type II or unspecified type diabetes mellitus without mention of complication, uncontrolled Unspecified essential hypertension Current Outpatient Medications Medication Sig blood sugar diagnostic (FREESTYLE PRECISION LORRIE STRIPS) test strip Pt tests approx 4 times after putting on new sensor if close or normal. If not may do more often. insulin lispro (HUMALOG KWIKPEN INSULIN) 100 unit/mL Take 6 units prior to breakfast, 6 units prior to lunch, and 6 units prior to dinner. If replacing meal with a protein shake, take 4 units with shake. Max 18 units/day. ENROLLED IN [employer] PAP insulin glargine (LANTUS SOLOSTAR U-100 INSULIN) 100 unit/mL (3 mL) Inject 20 Units subcutaneously daily at bedtime. atorvastatin (LIPITOR) 40 mg tablet Take 1 tablet by mouth once daily. losartan (COZAAR) 50 mg tablet Take 1 tablet by mouth once daily. metoprolol succinate ER (TOPROL XL) 100 mg Take 1 tablet by mouth once daily. Blood-Glucose Meter,Continuous (FREESTYLE MARYANN 3 READER) [facility] Use to check blood sugar at least four (4) times daily. cycloSPORINE (RESTASIS) 0.05 % ophthalmic emulsion Use 1 Drop in both eyes two times a day. (Dr. Candelaria--started 2 weeks ago) potassium chloride ER (KLOR-CON) 20 mEq tablet clopidogrel (PLAVIX) 75 mg tablet Take 75 mg by mouth once daily. vit A/vit C/vit E/zinc/copper (PRESERVISION AREDS ORAL) Take by mouth twice daily. aspirin, enteric coated (ASPIRIN, ENTERIC COATED) 81 mg EC tablet Take 81 mg by mouth once daily. gqyamzog-mmc-idjn-FA-lutein (CENTRUM SILVER WOMEN) 8 mg iron-400 mcg-300 mcg tab Take 1 tablet by mouth daily Lancets lancets Test blood sugar(s) 3 times daily. Dx: Type 2 DM - Controlled E11.65 Insulin: Yes nitroglycerin sublingual (NITROQUICK) 0.4 mg SL tablet Dissolve 0.4 mg under the tongue as needed. If no pain relief call 911. Dr. Hoyos. vitamin b complex tab Take 1 tablet by mouth once daily. Cholecalciferol, Vitamin D3, 2,000 unit Tab Take 1 capsule by mouth one time daily albuterol HFA (PROAIR HFA) 90 mcg/actuation inhaler Inhale 2 Puffs as instructed every 4 hours as needed. valACYclovir (VALTREX) 1 gram tablet Take 1 tablet by mouth three times a day for 7 days. Blood-Glucose Sensor (FREESTYLE MARYANN 3 SENSOR) maynor Apply new sensor every fourteen (14) days to upper arm. furosemide (LASIX) 40 mg tablet Take 40 mg by mouth once daily. (Patient not taking: Reported on 07/10/2024) No current facility-administered medications for this visit. Review of Systems Objective BP 110/60 Pulse (!) 58 Resp 14 Wt 66.5 kg (146 lb 9.7 oz) BMI 28.41 kg/m? Last 5 Encounter Wt Readings: Date: Wt: 07/10/2024 66.5 kg (146 lb 9.7 oz) 03/09/2024 68.4 kg (150 lb 12.7 oz) 12/31/2023 71.1 kg (156 lb 12 oz) 09/27/2023 69.9 kg (154 lb) 02/14/2023 68.5 kg (151 lb) No waist measurement recorded Estimated body mass index is 28.41 kg/m? as calculated from the following: Height as of 05/16/21: 153 cm (5' 0.24). Weight as of this encounter: 66.5 kg (146 lb 9.7 oz). Last 5 Encounter BP Readings: Date: BP: 07/10/2024 110/60 03/09/2024 112/57 12/31/2023 102/58 09/27/2023 121/66 02/14/2023 110/63 Physical Exam Constitutional: Appearance: Normal appearance. HENT: Head: Normocephalic. Eyes: Conjunctiva/sclera: Conjunctivae normal. Cardiovascular: Rate and Rhythm: Normal rate and regular rhythm. Heart sounds: Murmur heard. Systolic (LSB) murmur is present with a grade of 3/6. Pulmonary: Effort: Pulmonary effort is normal. Breath sounds: Normal breath sounds. Musculoskeletal: Right lower leg: No edema. Left lower leg: No edema. Skin: General: Skin is warm and dry. Neurological: General: No focal deficit present. Mental Status: She is alert and oriented to person, place, and time. Psychiatric: Mood and Affect: Mood normal. Behavior: Behavior normal. Thought Content: Thought content normal. Judgment: Judgment normal. Latest Ref Rng 02/11/2023 06/05/2023 12/31/2023 03/10/2024 Protein, Total 6.3 - 8.0 g/dL 6.5 6.9 6.7 Albumin 3.9 - 4.9 g/dL 4.2 4.0 4.1 Calcium 8.5 - 10.2 mg/dL 9.4 9.4 9.4 Bilirubin, Total 0.2 - 1.3 mg/dL 0.9 0.7 1.2 Alkaline Phosphatase 34 - 123 U/L 136 (H) 167 (H) 121 AST 13 - 35 U/L 26 35 37 (H) ALT 7 - 38 U/L 19 59 (H) 25 Glucose 74 - 99 mg/dL 170 (H) 111 (H) 110 (H) BUN 7 - 21 mg/dL 17 16 10 Creatinine 0.58 - 0.96 mg/dL 0.77 0.70 0.62 Sodium 136 - 144 mmol/L 142 140 138 Potassium 3.7 - 5.1 mmol/L 4.8 4.4 4.3 Chloride 98 - 107 mmol/L 103 101 100 CO2 22 - 30 mmol/L 28 28 29 Anion Gap 8 - 15 mmol/L 11 11 9 eGFR >=60 mL/min/1.73m? 78 87 90 WBC 3.70 - 11.00 k/uL 9.20 8.43 RBC 3.90 - 5.20 m/uL 4.14 4.15 Hemoglobin 11.5 - 15.5 g/dL 13.8 13.8 Hematocrit 36.0 - 46.0 % 42.9 42.1 MCV 80.0 - 100.0 fL 103.6 (H) 101.4 (H) MCH 26.0 - 34.0 pg 33.3 33.3 MCHC 30.5 - 36.0 g/dL 32.2 32.8 RDW-CV 11.5 - 15.0 % 12.9 12.2 Platelet Count 150 - 400 k/uL 270 227 MPV 9.0 - 12.7 fL 11.6 10.9 Absolute nRBC <0.01 k/uL <0.01 <0.01 Cholesterol, Total <200 mg/dL 126 111 Triglyceride <150 mg/dL 87 49 HDL Cholesterol >39 mg/dL 60 59 Non HDL Cholesterol <130 mg/dL 66 52 Fasting Time hrs 14 12 VLDL Cholesterol <30 mg/dL 17 10 TC:HDL Ratio <5.10 2.10 1.88 LDL Cholesterol <100 mg/dL 49 42 LDL:HDL Ratio <2.54 0.82 0.71 Creatinine, Ur Random (UCRR) 20.0 - 300.0 mg/dL 59.2 29.1 Albumin, Urine Random mg/L <12.0 <12.0 Albumin/Creat Ratio <20 -- Hemoglobin A1C 4.3 - 5.6 % 6.6 (H) 6.6 (H) 6.8 (H) Estimated Average Glucose mg/dL 143 143 148 Vitamin B12 232 - 1,245 pg/mL 746 Folate >4.7 ng/mL >20.0 Vitamin D 25 Hydroxy 31.0 - 80.0 ng/mL 32.4 58.2 Hemoglobin A1C (POCT) 4.3 - 5.6 % 7.0 ! Legend: (H) High ! 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 - Educated on rotating injection sites to prevent further lipohypertrophy; demonstrated alternative sites including thighs and back of arms. - Blood glucose levels occasionally spike to 300 mg/dL in the morning but return to baseline quickly; likely due to physiological glucose production overnight. - Advised to verify high CGM readings with fingerstick glucose checks. - Ordered zjbyq-vr-qzqn A1c test today; previous A1c levels have been well-controlled. - Continue current insulin regimen; no adjustments needed at this time. - Follow-up with diabetes pharmacist Aravind for ongoing management. # Essential hypertension (I10) - Blood pressure well-controlled today. - Advised to continue current antihypertensive regimen. - Educated on the importance of hydration to maintain stable blood pressure. # Mixed hyperlipidemia (E78.2) - Previous lipid panels have been well-controlled. - Ordered lipid panel for next appointment in March; fasting not required for the upcoming test. # Vitamin D deficiency (E55.9) - Continue current vitamin D supplementation. - Ordered vitamin D level check for next appointment. # Encounter for immunization (Z23) - Discussed RSV and shingles vaccines; RSV vaccine to be considered in the fall, shingles vaccine available at the pharmacy. # Secondary pulmonary arterial hypertension (HCC) (I27.21) Most recent echo in May 2023 with pulmonary artery pressure 44. Continue following with cardiology. Lori Can MD Recording using [employer] software for draft documentation of the visit was discussed with the patient/authorized account executive sales representative; all questions welcomed and answered. Patient/authorized account executive sales representative agreed to proceed Lori Can MD 07/10/2024 12:57 PM Signed - Rotate insulin injection sites to avoid lumps and bruises. Use different spots on your abdomen, thighs, and possibly the back of your arms. Avoid injecting in the same spot repeatedly. - Monitor blood sugar levels regularly. If you notice high readings in the morning, consider verifying with a finger poke to ensure accuracy. - Stay hydrated to help manage blood sugar levels. - Engage in light physical activity, such as walking around the house, to help regulate blood sugar levels. - Schedule and complete your next set of labs, including Metabolic Panel, Blood Counts, A1c, and Vitamin D, at your next appointment. - Consider getting the shingles vaccine at the pharmacy when the weather improves. - Follow up in 3 months for your next appointment. Allergies As of Date: 07/10/2024 Noted Allergy Reaction LISINOPRIL 06/06/2011 3 - Cough Comments: Resolved after stopped medication REMERON (MIRTAZAPINE) 11/13/2021 14 - Other: See Comments Comments: Contributed to trouble with memory. 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 Continue following with cardiology. Moderate aortic stenosis by prior echocardiogram [I35.0] Order(s):HEMOGLOBIN A1C (POC) [2156389] Order #: [id number]. #:[id number] COMPREHENSIVE METABOLIC PANEL [SQCMP] Order #: [id number] STANDING COMPLETE BLOOD COUNT [SQCBC] Order #: [id number] STANDING HEMOGLOBIN A1C [IBNJT5B] Order #: [id number] STANDING VITAMIN D 25 HYDROXY [SQVITD] Order #: [id number] STANDING LIPID PANEL, FASTING [SQLIPB] Order #: [id number] FUTURE ADVANCE CARE PLAN DISCUSSION [[id number]] Order #: [id number]: 1 [employer] [facility] INSTRUCTIONS [1822030] Order #: [id number]: 1 Blood-Glucose Sensor (FREESTYLE MARYANN 3 SENSOR) deviApply new sensor every fourteen (14) days to upper arm.Disp: 6 eachRfl: 4 Prescriptions as of 07/27/2024 - valACYclovir (VALTREX) 1 gram tablet Take 1 tablet by mouth three times a day for 7 days. - Blood-Glucose Sensor (FREESTYLE MARYANN 3 SENSOR) maynor Apply new sensor every fourteen (14) days to upper arm. - blood sugar diagnostic (FREESTYLE PRECISION LORRIE STRIPS) test strip Pt tests approx 4 times after putting on new sensor if close or normal. If not may do more often. - insulin lispro (HUMALOG KWIKPEN INSULIN) 100 unit/mL Take 6 units prior to breakfast, 6 units prior to lunch, and 6 units prior to dinner. If replacing meal with a protein shake, take 4 units with shake. Max 18 units/day. [email or web address] - insulin glargine (LANTUS SOLOSTAR U-100 INSULIN) 100 unit/mL (3 mL) Inject 20 Units subcutaneously daily at bedtime. - atorvastatin (LIPITOR) 40 mg tablet Take 1 tablet by mouth once daily. - losartan (COZAAR) 50 mg tablet Take 1 tablet by mouth once daily. - metoprolol succinate ER (TOPROL XL) 100 mg Take 1 tablet by mouth once daily. - Blood-Glucose Meter,Continuous (FREESTYLE MARYANN 3 READER) [facility] Use to check blood sugar at least four (4) times daily. - cycloSPORINE (RESTASIS) 0.05 % ophthalmic emulsion Use 1 Drop in both eyes two times a day. (Dr. Candelaria--started 2 weeks ago) - potassium chloride ER (KLOR-CON) 20 mEq tablet - clopidogrel (PLAVIX) 75 mg tablet Take 75 mg by mouth once daily. - vit A/vit C/vit E/zinc/copper (PRESERVISION AREDS ORAL) Take by mouth twice daily. - furosemide (LASIX) 40 mg tablet Take 40 mg by mouth once daily. - aspirin, enteric coated (ASPIRIN, ENTERIC COATED) 81 mg EC tablet Take 81 mg by mouth once daily. - uznkiekm-apt-lfri-FA-lutein (CENTRUM SILVER WOMEN) 8 mg iron-400 mcg-300 mcg tab Take 1 tablet by mouth daily - Lancets lancets Test blood sugar(s) 3 times daily. Dx: Type 2 DM - Controlled E11.65 Insulin: Yes - nitroglycerin sublingual (NITROQUICK) 0.4 mg SL tablet Dissolve 0.4 mg under the tongue as needed. If no pain relief call 911. Dr. Hoyos. - vitamin b complex tab Take 1 tablet by mouth once daily. - Cholecalciferol, Vitamin D3, 2,000 unit Tab Take 1 capsule by mouth one time daily - albuterol HFA (PROAIR HFA) 90 mcg/actuation inhaler Inhale 2 Puffs as instructed every 4 hours as needed. Meds Comments as of 08/30/2010: Problem List As Of Date 07/10/2024 Noted Resolved MYALGIA AND MYOSITIS NOS [[id number]] Mixed hyperlipidemia [E78.2] Essential hypertension [I10] Class 1 obesity due to excess calories with ser* 02/13/2021 CERVICAL DISC DEGEN [M50.30] 01/23/2006 Type 2 diabetes mellitus, uncontrolled [JFO2065]01/23/2006 05/14/2022 Cervical radiculopathy [LCS2981] 01/23/2006 ESOPHAGEAL REFLUX [K21.9] 07/29/2006 RETINAL HEMORRHAGE [H35.60] 02/27/2007 BONE AND CARTILAGE DIS NOS [M89.9, M94.9] 05/27/2007 Acute gastritis without mention of hemorrhage [*04/04/2010 05/14/2022 Diaphragmatic hernia without mention of obstruc*04/04/2010 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 Use different spots on your abdomen, thighs, and possibly the back of your arms. Avoid injecting in the same spot repeatedly. - Monitor blood sugar levels regularly. If you notice high readings in the morning, consider verifying with a finger poke to ensure accuracy. - Stay hydrated to help manage blood sugar levels. - Engage in light physical activity, such as walking around the house, to help regulate blood sugar levels. - Schedule and complete your next set of labs, including Metabolic Panel, Blood Counts, A1c, and Vitamin D, at your next appointment. - Consider getting the shingles vaccine at the pharmacy when the weather improves. - Follow up in 3 months for your next appointment. Prescriptions ordered this encounter Disp Refills Start End FREESTYLE MARYANN 3 SENSOR DEVICE 6 ea* 4 07/10/2024 Sig: Apply new sensor every fourteen (14) days to upper arm. Medications Discontinued During This Encounter Prescriptions - Blood-Glucose Sensor (FREESTYLE MARYANN 3 SENSOR) maynor (Discontinued) Apply new sensor every fourteen (14) days to upper arm. Level of Service: OFFICE/OUTPATIENT ESTABLISHED MOD MDM 30 MIN [57845] Additional E/M codes: VISIT CPLX INHERENT EANDM ASSOC WITH MED * Encounter Status:Closed by LORI CAN on 07/27/24 36 Observed: 07/09/2024 11:59 AM Status: COMPLETED Source: [employer] [facility] Patient scheduled and aware. I mailed appt reminders. PROGRESS Observed: 07/02/2024 9:00 AM Status: COMPLETED Source: [facility] HNO ID: [id number] Author: JOANIE STONE RPh Service: ? Author Type: Pharmacist Type: Progress Notes Filed: 07/02/2024 12:05 Note Text: Primary Care Pharmacy Visit CC (Reason for Consult): (E11.9, Z79.4) Type 2 diabetes mellitus without complication, with long-term current use of insulin (HCC) (primary encounter diagnosis) Goal(s): A1c <8% Last Collaborating Provider Visit: 03/09/24 with NICHOLAS Vogt Magnolia Fisher is a 84 year old female presenting for follow up visit in person. Patient consents to pharmacy collaborative practice agreement. Last Pharmacy Visit: 02/06/24 HPI: Here with daughter, Nicole States things have been a lot better lately Reports has noticed no matter what she does the BGs sometimes spikes up and then comes back down Has not been as active this past winter, was walking her dog before, dog was ill in May and passed recently Has also had periods of stress in last couple of months Current DM Medications: Basaglar 20 units once daily every evening Humalog 6 units three times daily before meals; 4 units if replacing meal with protein shake Previously Trialed DM Meds: Basaglar Metformin Jardiance - cost Invokana Diet Denies any major changes with diet Still monitoring carb intake Breakfast 630a Lunch 12p Dinner 6p GLYCEMIC CONTROL: Glucometer present at visit: Yes - Maryann 3 reader Hypoglycemia: No CGM Data Past medical history reviewed. ALLERGIES Allergen Reactions Lisinopril Cough Resolved after stopped medication Remeron [Mirtazapin* Other: See Comments Contributed to trouble with memory. Also caused anxiety and irritability Seasonal Allergies Other: See Comments wheezing Current Outpatient Medications Medication Sig Dispense Refill blood sugar diagnostic (FREESTYLE PRECISION LORRIE STRIPS) test strip Pt tests approx 4 times after putting on new sensor if close or normal. If not may do more often. 50 Each 0 insulin lispro (HUMALOG KWIKPEN INSULIN) 100 unit/mL Take 6 units prior to breakfast, 6 units prior to lunch, and 6 units prior to dinner. If replacing meal with a protein shake, take 4 units with shake. Max 18 units/day. [facility] IN [email or web address] PAP 30 mL 3 insulin glargine (LANTUS SOLOSTAR U-100 INSULIN) 100 unit/mL (3 mL) Inject 20 Units subcutaneously daily at bedtime. 15 mL 1 atorvastatin (LIPITOR) 40 mg tablet Take 1 tablet by mouth once daily. 90 tablet 3 losartan (COZAAR) 50 mg tablet Take 1 tablet by mouth once daily. 90 tablet 3 metoprolol succinate ER (TOPROL XL) 100 mg Take 1 tablet by mouth once daily. 90 tablet 3 Blood-Glucose Meter,Continuous (FREESTYLE MARYANN 3 READER) [facility] Use to check blood sugar at least four (4) times daily. 1 Each 0 Blood-Glucose Sensor (FREESTYLE MARYANN 3 SENSOR) maynor Apply new sensor every fourteen (14) days to upper arm. 6 Each 4 cycloSPORINE (RESTASIS) 0.05 % ophthalmic emulsion Use 1 Drop in both eyes two times a day. (Dr. Candelaria--started 2 weeks ago) potassium chloride ER (KLOR-CON) 20 mEq tablet clopidogrel (PLAVIX) 75 mg tablet Take 75 mg by mouth once daily. vit A/vit C/vit E/zinc/copper (PRESERVISION AREDS ORAL) Take by mouth twice daily. furosemide (LASIX) 40 mg tablet Take 40 mg by mouth once daily. aspirin, enteric coated (ASPIRIN, ENTERIC COATED) 81 mg EC tablet Take 81 mg by mouth once daily. gzmedcka-syf-mdho-FA-lutein (CENTRUM SILVER WOMEN) 8 mg iron-400 mcg-300 mcg tab Take 1 tablet by mouth daily Lancets lancets Test blood sugar(s) 3 times daily. Dx: Type 2 DM - Controlled E11.65 Insulin: Yes 400 Each 3 nitroglycerin sublingual (NITROQUICK) 0.4 mg SL tablet Dissolve 0.4 mg under the tongue as needed. If no pain relief call 911. Dr. Hoyos. 0 vitamin b complex tab Take 1 tablet by mouth once daily. 0 Cholecalciferol, Vitamin D3, 2,000 unit Tab Take 1 capsule by mouth one time daily 0 albuterol HFA (PROAIR HFA) 90 mcg/actuation inhaler Inhale 2 Puffs as instructed every 4 hours as needed. 3 Inhaler 1 No current facility-administered medications for this visit. Pill bottles are not present. Adherence: denies missed doses. Rx coverage: Payor: [employer] MEDICARE / Plan: [employer] MEDICARE PPO / Product Type: PPO / Medications affordable? Enrolled in [employer] (Basaglar and Humalog) Patient Assistance Programs being utilized: [employer] Medication Status Renewal Due Where Delivered [employer] Culture Communication Basaglar Approved 03/31/25 Patient Home [employer] Communication Humalog U100 Approved 03/31/25 Patient Home PHARMACOTHERAPY PREVENTATIVE MEDS: On ANGELA/ARB: Yes On Statin: Yes On ASA: Yes EXAM: There were no vitals taken for this visit. Last 3 Encounter BP Readings: Date: BP: 03/09/2024 112/57 12/31/2023 102/58 09/27/2023 121/66 Wt: 68.4 kg (150 lb 12.7 oz) BMI: 29.22 kg/(m2) LABS: Lab Results Component Value Date HBA1C 6.8 03/10/2024 HBA1C 7.0 12/31/2023 HBA1C 6.6 06/05/2023 HBA1C 6.6 02/11/2023 HBA1C 7.6 05/13/2021 HBA1C 9.0 08/06/2020 HBA1C 8.1 04/03/2018 Glucose 110 03/10/2024 BUN 10 03/10/2024 Creatinine 0.62 03/10/2024 Sodium 138 03/10/2024 Potassium 4.3 03/10/2024 Chloride 100 03/10/2024 CO2 29 03/10/2024 Protein, Total 6.7 03/10/2024 Albumin 4.1 03/10/2024 Calcium 9.4 03/10/2024 Alkaline Phosphatase 121 03/10/2024 Bilirubin, Total 1.2 03/10/2024 AST 37 03/10/2024 ALT 25 03/10/2024 Lab Results Component Value Date CHOL 111 03/10/2024 CHOL 133 05/13/2021 LDL 42 03/10/2024 LDL 43 11/13/2021 LDL 56 05/13/2021 HDL 59 03/10/2024 HDL 58 05/13/2021 TG 49 03/10/2024 TG 95 05/13/2021 Albumin/Creat Ratio (mg/g) Date Value 02/11/2023 <20 eGFR-All Other Races (.) Date Value 05/13/2021 >60 Estimated Glomerular Filtration Rate (mL/min/1.73m?) Date Value 03/10/2024 90 ASSESSMENT/PLAN: 1. Type 2 diabetes mellitus without complication, with long-term current use of insulin ([facility]) - ICD9: 250.00, V58.67, ICD10: E11.9, Z79.4 - Controlled - Continue current medications - Statin prescribed - atorvastatin - Blood glucose monitoring on a continuous glucose monitoring schedule - Counseled on healthy diet and regular exercise - Discussed diabetic education issues of hypoglycemic/hyperglycemic symptoms - Follow up in 2 months, sooner should any other issues arise. Overdue Diabetes Health Maintenance: Health Maintenance - Diabetes Topic Date Due Diabetic Foot Exam 02/15/2024 Follow Up: Next PCP visit: 07/10/24 Next PharmD visit: 09/03/24 Joanie Stone, MarkD, BCACP Primary Care Clinical Cementer Machine Joiner I spent a total of 30 minutes on the date of the service which included preparing to see the patient, [id number]-frsa patient care, completing clinical documentation, and counseling and educating the patient/family/caregiver. CNOV Observed: 07/02/2024 9:00 AM Status: COMPLETED Source: [facility] Office Visit (PHMEWO) PHILLIPMAGNOLIA Cooper ([id number]) 1940 F T Date Time Provider Department 07/02/24 9:00 AM JOANIE STONE [facility] During your visit today, we recorded the following information about you: Joanie Stone renee 07/02/2024 12:05 PM Signed Primary Care Pharmacy Visit CC (Reason for Consult): (E11.9, Z79.4) Type 2 diabetes mellitus without complication, with long-term current use of insulin (HCC) (primary encounter diagnosis) Goal(s): A1c <8% Last Collaborating Provider Visit: 03/09/24 with NICHOLAS Vogt Phillip is a 84 year old female presenting for follow up visit in person. Patient consents to pharmacy collaborative practice agreement. Last Pharmacy Visit: 02/06/24 HPI: Here with daughter, Nicole States things have been a lot better lately Reports has noticed no matter what she does the BGs sometimes spikes up and then comes back down Has not been as active this past winter, was walking her dog before, dog was ill in May and passed recently Has also had periods of stress in last couple of months Current DM Medications: Basaglar 20 units once daily every evening Humalog 6 units three times daily before meals; 4 units if replacing meal with protein shake Previously Trialed DM Meds: Basaglar Metformin Jardiance - cost Invokana Diet Denies any major changes with diet Still monitoring carb intake Breakfast 630a Lunch 12p Dinner 6p GLYCEMIC CONTROL: Glucometer present at visit: Yes - Maryann 3 reader Hypoglycemia: No CGM Data Past medical history reviewed. ALLERGIES Allergen Reactions Lisinopril Cough Resolved after stopped medication Remeron [Mirtazapin* Other: See Comments Contributed to trouble with memory. Also caused anxiety and irritability Seasonal Allergies Other: See Comments wheezing Current Outpatient Medications Medication Sig Dispense Refill blood sugar diagnostic (FREESTYLE PRECISION LORRIE STRIPS) test strip Pt tests approx 4 times after putting on new sensor if close or normal. If not may do more often. 50 Each 0 insulin lispro (HUMALOG KWIKPEN INSULIN) 100 unit/mL Take 6 units prior to breakfast, 6 units prior to lunch, and 6 units prior to dinner. If replacing meal with a protein shake, take 4 units with shake. Max 18 units/day. ENROLLED IN [employer] PAP 30 mL 3 insulin glargine (LANTUS SOLOSTAR U-100 INSULIN) 100 unit/mL (3 mL) Inject 20 Units subcutaneously daily at bedtime. 15 mL 1 atorvastatin (LIPITOR) 40 mg tablet Take 1 tablet by mouth once daily. 90 tablet 3 losartan (COZAAR) 50 mg tablet Take 1 tablet by mouth once daily. 90 tablet 3 metoprolol succinate ER (TOPROL XL) 100 mg Take 1 tablet by mouth once daily. 90 tablet 3 Blood-Glucose Meter,Continuous (FREESTYLE MARYANN 3 READER) [facility] Use to check blood sugar at least four (4) times daily. 1 Each 0 Blood-Glucose Sensor (FREESTYLE MARYANN 3 SENSOR) maynor Apply new sensor every fourteen (14) days to upper arm. 6 Each 4 cycloSPORINE (RESTASIS) 0.05 % ophthalmic emulsion Use 1 Drop in both eyes two times a day. (Dr. Candelaria--started 2 weeks ago) potassium chloride ER (KLOR-CON) 20 mEq tablet clopidogrel (PLAVIX) 75 mg tablet Take 75 mg by mouth once daily. vit A/vit C/vit E/zinc/copper (PRESERVISION AREDS ORAL) Take by mouth twice daily. furosemide (LASIX) 40 mg tablet Take 40 mg by mouth once daily. aspirin, enteric coated (ASPIRIN, ENTERIC COATED) 81 mg EC tablet Take 81 mg by mouth once daily. ucqqnuqq-wyx-wsxt-FA-lutein (CENTRUM SILVER WOMEN) 8 mg iron-400 mcg-300 mcg tab Take 1 tablet by mouth daily Lancets lancets Test blood sugar(s) 3 times daily. Dx: Type 2 DM - Controlled E11.65 Insulin: Yes 400 Each 3 nitroglycerin sublingual (NITROQUICK) 0.4 mg SL tablet Dissolve 0.4 mg under the tongue as needed. If no pain relief call 911. Dr. Hoyos. 0 vitamin b complex tab Take 1 tablet by mouth once daily. 0 Cholecalciferol, Vitamin D3, 2,000 unit Tab Take 1 capsule by mouth one time daily 0 albuterol HFA (PROAIR HFA) 90 mcg/actuation inhaler Inhale 2 Puffs as instructed every 4 hours as needed. 3 Inhaler 1 No current facility-administered medications for this visit. Pill bottles are not present. Adherence: denies missed doses. Rx coverage: Payor: HU[employer] MEDICARE / Plan: [employer] MEDICARE PPO / Product Type: PPO / Medications affordable? Enrolled in [employer] (Basaglar and Humalog) Patient Assistance Programs being utilized: Bitdeli Medication Status Renewal Due Where Delivered [employer] Culture Communication Basaglar Approved 03/31/25 Patient Home [employer] Communication Humalog U100 Approved 03/31/25 Patient Home PHARMACOTHERAPY PREVENTATIVE MEDS: On ANGELA/ARB: Yes On Statin: Yes On ASA: Yes EXAM: There were no vitals taken for this visit. Last 3 Encounter BP Readings: Date: BP: 03/09/2024 112/57 12/31/2023 102/58 09/27/2023 121/66 Wt: 68.4 kg (150 lb 12.7 oz) BMI: 29.22 kg/(m2) LABS: Lab Results Component Value Date HBA1C 6.8 03/10/2024 HBA1C 7.0 12/31/2023 HBA1C 6.6 06/05/2023 HBA1C 6.6 02/11/2023 HBA1C 7.6 05/13/2021 HBA1C 9.0 08/06/2020 HBA1C 8.1 04/03/2018 Glucose 110 03/10/2024 BUN 10 03/10/2024 Creatinine 0.62 03/10/2024 Sodium 138 03/10/2024 Potassium 4.3 03/10/2024 Chloride 100 03/10/2024 CO2 29 03/10/2024 Protein, Total 6.7 03/10/2024 Albumin 4.1 03/10/2024 Calcium 9.4 03/10/2024 Alkaline Phosphatase 121 03/10/2024 Bilirubin, Total 1.2 03/10/2024 AST 37 03/10/2024 ALT 25 03/10/2024 Lab Results Component Value Date CHOL 111 03/10/2024 CHOL 133 05/13/2021 LDL 42 03/10/2024 LDL 43 11/13/2021 LDL 56 05/13/2021 HDL 59 03/10/2024 HDL 58 05/13/2021 TG 49 03/10/2024 TG 95 05/13/2021 Albumin/Creat Ratio (mg/g) Date Value 02/11/2023 <20 eGFR-All Other Races (.) Date Value 05/13/2021 >60 Estimated Glomerular Filtration Rate (mL/min/1.73m?) Date Value 03/10/2024 90 ASSESSMENT/PLAN: 1. Type 2 diabetes mellitus without complication, with long-term current use of insulin ([facility]) - ICD9: 250.00, V58.67, ICD10: E11.9, Z79.4 - Controlled - Continue current medications - Statin prescribed - atorvastatin - Blood glucose monitoring on a continuous glucose monitoring schedule - Counseled on healthy diet and regular exercise - Discussed diabetic education issues of hypoglycemic/hyperglycemic symptoms - Follow up in 2 months, sooner should any other issues arise. Overdue Diabetes Health Maintenance: Health Maintenance - Diabetes Topic Date Due Diabetic Foot Exam 02/15/2024 Follow Up: Next PCP visit: 07/10/24 Next PharmD visit: 09/03/24 Joanie Stone, PharmD, BCACP Primary Care Clinical Cementer Machine Joiner I spent a total of 30 minutes on the date of the service which included preparing to see the patient, [id number] patient care, completing clinical documentation, and counseling and educating the patient/family/caregiver. Referring Provider: SELF [[id number]] Allergies As of Date: 07/02/2024 Noted Allergy Reaction LISINOPRIL 06/06/2011 3 - Cough Comments: Resolved after stopped medication REMERON (MIRTAZAPINE) 11/13/2021 14 - Other: See Comments Comments: Contributed to trouble with memory. Also caused anxiety and irritability SEASONAL ALLERGIES 06/26/2013 14 - Other: See Comments Comments: wheezing Date Reviewed: 07/02/2024 Reviewed by: Joanie Stone [facility] - Fully Assessed Reason for Visit: Diabetes [34] Primary Visit Diagnosis:Type 2 diabetes mellitus without complication, with long-term current use of insulin ([facility]) [E11.9, Z79.4] Prescriptions as of 07/02/2024 - blood sugar diagnostic (FREESTYLE PRECISION LORRIE STRIPS) test strip Pt tests approx 4 times after putting on new sensor if close or normal. If not may do more often. - insulin lispro (HUMALOG KWIKPEN INSULIN) 100 unit/mL Take 6 units prior to breakfast, 6 units prior to lunch, and 6 units prior to dinner. If replacing meal with a protein shake, take 4 units with shake. Max 18 units/day. ENROLLED IN [employer] PAP - insulin glargine (LANTUS SOLOSTAR U-100 INSULIN) 100 unit/mL (3 mL) Inject 20 Units subcutaneously daily at bedtime. - atorvastatin (LIPITOR) 40 mg tablet Take 1 tablet by mouth once daily. - losartan (COZAAR) 50 mg tablet Take 1 tablet by mouth once daily. - metoprolol succinate ER (TOPROL XL) 100 mg Take 1 tablet by mouth once daily. - Blood-Glucose Meter,Continuous (FREESTYLE MARYANN 3 READER) [facility] Use to check blood sugar at least four (4) times daily. - Blood-Glucose Sensor (FREESTYLE MARYANN 3 SENSOR) maynor Apply new sensor every fourteen (14) days to upper arm. - cycloSPORINE (RESTASIS) 0.05 % ophthalmic emulsion Use 1 Drop in both eyes two times a day. (Dr. Candelaria--started 2 weeks ago) - potassium chloride ER (KLOR-CON) 20 mEq tablet - clopidogrel (PLAVIX) 75 mg tablet Take 75 mg by mouth once daily. - vit A/vit C/vit E/zinc/copper (PRESERVISION AREDS ORAL) Take by mouth twice daily. - furosemide (LASIX) 40 mg tablet Take 40 mg by mouth once daily. - aspirin, enteric coated (ASPIRIN, ENTERIC COATED) 81 mg EC tablet Take 81 mg by mouth once daily. - rprvzebn-zja-kiwk-FA-lutein (CENTRUM SILVER WOMEN) 8 mg iron-400 mcg-300 mcg tab Take 1 tablet by mouth daily - Lancets lancets Test blood sugar(s) 3 times daily. Dx: Type 2 DM - Controlled E11.65 Insulin: Yes - nitroglycerin sublingual (NITROQUICK) 0.4 mg SL tablet Dissolve 0.4 mg under the tongue as needed. If no pain relief call 911. Dr. Hoyos. - vitamin b complex tab Take 1 tablet by mouth once daily. - Cholecalciferol, Vitamin D3, 2,000 unit Tab Take 1 capsule by mouth one time daily - albuterol HFA (PROAIR HFA) 90 mcg/actuation inhaler Inhale 2 Puffs as instructed every 4 hours as needed. Meds Comments as of 08/30/2010: Problem List As Of Date 07/02/2024 Noted Resolved MYALGIA AND MYOSITIS NOS [[id number]] Mixed hyperlipidemia [E78.2] Essential hypertension [I10] Class 1 obesity due to excess calories with ser* 02/13/2021 CERVICAL DISC DEGEN [M50.30] 01/23/2006 Type 2 diabetes mellitus, uncontrolled [UFH1111]01/23/2006 05/14/2022 Cervical radiculopathy [CRD0007] 01/23/2006 ESOPHAGEAL REFLUX [K21.9] 07/29/2006 RETINAL HEMORRHAGE [H35.60] 02/27/2007 BONE AND CARTILAGE DIS NOS [M89.9, M94.9] 05/27/2007 Acute gastritis without mention of hemorrhage [*04/04/2010 05/14/2022 Diaphragmatic hernia without mention of obstruc*04/04/2010 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] 05/22/2010 Sleep apnea [G47.30] 10/09/2011 Choledocholithiasis [K80.50] 04/07/2012 Chronic cholecystitis [K81.1] 04/07/2012 Gastroparesis [K31.84] 06/26/2013 Moderate aortic stenosis by prior echocardiogra*05/19/2018 Type 2 diabetes mellitus without complication, *11/13/2021 Secondary pulmonary arterial hypertension (HCC)*08/13/2022 Coronary artery disease involving [place] harris*08/13/2022 Encounter Status:Closed by JOANIE STONE on 07/02/24 PROGRESS Observed: 07/01/2024 11:50 AM Status: COMPLETED [id number] Author: ?, ?, ? Service: ? Author Type: ? Type: Progress Notes Filed: 07/01/2024 11:53 Note Text: POPULATION HEALTH NAVIGATION OUTREACH Action/FYI Patient outreach for HCC gaps; AWV, COLO, KED. DIABETIC EYE done 04/25 from outside provider. Appointment notes updated. Mychart sent Reason for Outreach Care Gap/HCC or Scheduling Wellness Visits Care Gaps due: Medicare Annual Wellness Visit Colorectal Cancer Screening KED Patient Contacted: Unable or unnecessary to reach patient: MyChart message sent HCC related Updated appointment notes Navigation Signature: Yary Madrid July 01, 2024 11:50 AM CHARLESTOUTROTIS Observed: 07/01/2024 12:00 AM Status: COMPLETED Source: [facility] Patient Outreach (NETNAV) MAGNOLIA FISHER ([id number]) 1940 F T Date Time Provider Department 07/01/24 LORI CAN NETNAV During your visit today, we recorded the following information about you: Yary Morales 07/01/2024 11:53 AM Signed POPULATION HEALTH NAVIGATION OUTREACH Action/FYI Patient outreach for HCC gaps; AWV, COLO, KED. DIABETIC EYE done 04/25 from outside provider. Appointment notes updated. AQUA PUREhart sent Reason for Outreach Care Gap/HCC or Scheduling Wellness Visits Care Gaps due: Medicare Annual Wellness Visit Colorectal Cancer Screening KED Patient Contacted: Unable or unnecessary to reach patient: Revolution Moneyhart message sent HCC related Updated appointment notes Navigation Signature: Yary Madrid July 01, 2024 11:50 AM Allergies As of Date: 07/01/2024 Noted Allergy Reaction LISINOPRIL 06/06/2011 3 - Cough Comments: Resolved after stopped medication REMERON (MIRTAZAPINE) 11/13/2021 14 - Other: See Comments Comments: Contributed to trouble with memory. Also caused anxiety and irritability SEASONAL ALLERGIES 06/26/2013 14 - Other: See Comments Comments: wheezing Date Reviewed: 03/09/2024 Reviewed by: Poole, Mi, MENTAL HEALTH PROGRAM DIRECTOR.CREDIT RISK MANAGER - Fully Assessed Reason for Visit: Population Health Navigation Outreach [3910] Cmt: Juliann Cassidy Prescriptions as of 07/01/2024 - blood sugar diagnostic (FREESTYLE PRECISION LORRIE STRIPS) test strip Pt tests approx 4 times after putting on new sensor if close or normal. If not may do more often. - insulin lispro (HUMALOG KWIKPEN INSULIN) 100 unit/mL Take 6 units prior to breakfast, 6 units prior to lunch, and 6 units prior to dinner. If replacing meal with a protein shake, take 4 units with shake. Max 18 units/day. ENROLLED IN [employer] PAP - insulin glargine (LANTUS SOLOSTAR U-100 INSULIN) 100 unit/mL (3 mL) Inject 20 Units subcutaneously daily at bedtime. - atorvastatin (LIPITOR) 40 mg tablet Take 1 tablet by mouth once daily. - losartan (COZAAR) 50 mg tablet Take 1 tablet by mouth once daily. - metoprolol succinate ER (TOPROL XL) 100 mg Take 1 tablet by mouth once daily. - Blood-Glucose Meter,Continuous (FREESTYLE MARYANN 3 READER) [facility] Use to check blood sugar at least four (4) times daily. - Blood-Glucose Sensor (FREESTYLE MARYANN 3 SENSOR) maynor Apply new sensor every fourteen (14) days to upper arm. - cycloSPORINE (RESTASIS) 0.05 % ophthalmic emulsion Use 1 Drop in both eyes two times a day. (Dr. Candelaria--started 2 weeks ago) - potassium chloride ER (KLOR-CON) 20 mEq tablet - clopidogrel (PLAVIX) 75 mg tablet Take 75 mg by mouth once daily. - vit A/vit C/vit E/zinc/copper (PRESERVISION AREDS ORAL) Take by mouth twice daily. - furosemide (LASIX) 40 mg tablet Take 40 mg by mouth once daily. - aspirin, enteric coated (ASPIRIN, ENTERIC COATED) 81 mg EC tablet Take 81 mg by mouth once daily. - xohuwcrv-sfw-jjhl-FA-lutein (CENTRUM SILVER WOMEN) 8 mg iron-400 mcg-300 mcg tab Take 1 tablet by mouth daily - Lancets lancets Test blood sugar(s) 3 times daily. Dx: Type 2 DM - Controlled E11.65 Insulin: Yes - nitroglycerin sublingual (NITROQUICK) 0.4 mg SL tablet Dissolve 0.4 mg under the tongue as needed. If no pain relief call 911. Dr. Hoyos. - vitamin b complex tab Take 1 tablet by mouth once daily. - Cholecalciferol, Vitamin D3, 2,000 unit Tab Take 1 capsule by mouth one time daily - albuterol HFA (PROAIR HFA) 90 mcg/actuation inhaler Inhale 2 Puffs as instructed every 4 hours as needed. Meds Comments as of 08/30/2010: Problem List As Of Date 07/01/2024 Noted Resolved MYALGIA AND MYOSITIS NOS [[id number]] Mixed hyperlipidemia [E78.2] Essential hypertension [I10] Class 1 obesity due to excess calories with ser* 02/13/2021 CERVICAL DISC DEGEN [M50.30] 01/23/2006 Type 2 diabetes mellitus, uncontrolled [UTG7922]01/23/2006 05/14/2022 Cervical radiculopathy [KLV7062] 01/23/2006 ESOPHAGEAL REFLUX [K21.9] 07/29/2006 RETINAL HEMORRHAGE [H35.60] 02/27/2007 BONE AND CARTILAGE DIS NOS [M89.9, M94.9] 05/27/2007 Acute gastritis without mention of hemorrhage [*04/04/2010 05/14/2022 Diaphragmatic hernia without mention of obstruc*04/04/2010 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] 05/22/2010 Sleep apnea [G47.30] 10/09/2011 Choledocholithiasis [K80.50] 04/07/2012 Chronic cholecystitis [K81.1] 04/07/2012 Gastroparesis [K31.84] 06/26/2013 Moderate aortic stenosis by prior echocardiogra*05/19/2018 Type 2 diabetes mellitus without complication, *11/13/2021 Secondary pulmonary arterial hypertension (HCC)*08/13/2022 Coronary artery disease involving [place] harris*08/13/2022 Encounter Status:Closed by YARY MORALES on 07/01/24 36 Observed: 06/30/2024 2:15 PM Status: COMPLETED Source: [facility] Patient due for 1 year follo w-up OV and echo s/p TAVR. Pended echo order, MENTAL HEALTH PROGRAM DIRECTOR to sign. Will schedule patient once order signed. CNPN Observed: 06/11/2024 12:00 AM Status: COMPLETED Source: [facility] Telephone (INTMWS) MAGNOLIA FISHER ([id number]) 1940 F T Date Time Provider Department 06/11/24 LORI CAN INTMWS During your visit today, we recorded the following information about you: Karen Donaldson LPN 06/11/2024 8:40 AM Signed Electronic PA rec'd and completed for freestyle precison lorrie strips. Pharmacy notified. Allergies As of Date: 06/11/2024 Noted Allergy Reaction LISINOPRIL 06/06/2011 3 - Cough Comments: Resolved after stopped medication REMERON (MIRTAZAPINE) 11/13/2021 14 - Other: See Comments Comments: Contributed to trouble with memory. Also caused anxiety and irritability SEASONAL ALLERGIES 06/26/2013 14 - Other: See Comments Comments: wheezing Date Reviewed: 03/09/2024 Reviewed by: Mi Poole APRN.CREDIT RISK MANAGER - Fully Assessed Reason for Visit: Insurance Authorization [[id number]] Prescriptions as of 06/11/2024 - blood sugar diagnostic (FREESTYLE PRECISION LORRIE STRIPS) test strip Pt tests approx 4 times after putting on new sensor if close or normal. If not may do more often. - insulin lispro (HUMALOG KWIKPEN INSULIN) 100 unit/mL Take 6 units prior to breakfast, 6 units prior to lunch, and 6 units prior to dinner. If replacing meal with a protein shake, take 4 units with shake. Max 18 units/day. ENROLLED IN [employer] PAP - insulin glargine (LANTUS SOLOSTAR U-100 INSULIN) 100 unit/mL (3 mL) Inject 20 Units subcutaneously daily at bedtime. - atorvastatin (LIPITOR) 40 mg tablet Take 1 tablet by mouth once daily. - losartan (COZAAR) 50 mg tablet Take 1 tablet by mouth once daily. - metoprolol succinate ER (TOPROL XL) 100 mg Take 1 tablet by mouth once daily. - Blood-Glucose Meter,Continuous (FREESTYLE MARYANN 3 READER) misc Use to check blood sugar at least four (4) times daily. - Blood-Glucose Sensor (FREESTYLE MARYANN 3 SENSOR) maynor Apply new sensor every fourteen (14) days to upper arm. - cycloSPORINE (RESTASIS) 0.05 % ophthalmic emulsion Use 1 Drop in both eyes two times a day. (Dr. Candelaria--started 2 weeks ago) - potassium chloride ER (KLOR-CON) 20 mEq tablet - clopidogrel (PLAVIX) 75 mg tablet Take 75 mg by mouth once daily. - vit A/vit C/vit E/zinc/copper (PRESERVISION AREDS ORAL) Take by mouth twice daily. - furosemide (LASIX) 40 mg tablet Take 40 mg by mouth once daily. - aspirin, enteric coated (ASPIRIN, ENTERIC COATED) 81 mg EC tablet Take 81 mg by mouth once daily. - zdfbgivu-sak-mmcp-FA-lutein (CENTRUM SILVER WOMEN) 8 mg iron-400 mcg-300 mcg tab Take 1 tablet by mouth daily - Lancets lancets Test blood sugar(s) 3 times daily. Dx: Type 2 DM - Controlled E11.65 Insulin: Yes - nitroglycerin sublingual (NITROQUICK) 0.4 mg SL tablet Dissolve 0.4 mg under the tongue as needed. If no pain relief call 911. Dr. Hoyos. - vitamin b complex tab Take 1 tablet by mouth once daily. - Cholecalciferol, Vitamin D3, 2,000 unit Tab Take 1 capsule by mouth one time daily - albuterol HFA (PROAIR HFA) 90 mcg/actuation inhaler Inhale 2 Puffs as instructed every 4 hours as needed. Meds Comments as of 08/30/2010: Problem List As Of Date 06/11/2024 Noted Resolved MYALGIA AND MYOSITIS NOS [ZGL0669] Mixed hyperlipidemia [E78.2] Essential hypertension [I10] Class 1 obesity due to excess calories with ser* 02/13/2021 CERVICAL DISC DEGEN [M50.30] 01/23/2006 Type 2 diabetes mellitus, uncontrolled [VUU8524]01/23/2006 05/14/2022 Cervical radiculopathy [VNJ0422] 01/23/2006 ESOPHAGEAL REFLUX [K21.9] 07/29/2006 RETINAL HEMORRHAGE [H35.60] 02/27/2007 BONE AND CARTILAGE DIS NOS [M89.9, M94.9] 05/27/2007 Acute gastritis without mention of hemorrhage [*04/04/2010 05/14/2022 Diaphragmatic hernia without mention of obstruc*04/04/2010 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] 05/22/2010 Sleep apnea [G47.30] 10/09/2011 Choledocholithiasis [K80.50] 04/07/2012 Chronic cholecystitis [K81.1] 04/07/2012 Gastroparesis [K31.84] 06/26/2013 Moderate aortic stenosis by prior echocardiogra*05/19/2018 Type 2 diabetes mellitus without complication, *11/13/2021 Secondary pulmonary arterial hypertension (HCC)*08/13/2022 Coronary artery disease involving [place] harris*08/13/2022 Encounter Status:Closed by KAREN DONALDSON on 06/11/24 CNPN Observed: 03/13/2024 12:00 AM Status: COMPLETED Source: [facility] Telephone ([facility]) MAGNOLIA FISHER ([id number]) 1940 F Date Time Provider Department 03/13/24 JOANIE STONE [facility] During your visit today, we recorded the following information about you: Joanie Stone [facility] 03/13/2024 2:36 PM Signed [facility]; confirmed patient is enrolled in program for Basaglar and Humalog through 03/31/25. Called and spoke with [facility] pharmacy. Confirmed Basaglar was filled 03/13/24 and shipped/delivered to patient; however, pharmacy does not have active rx for Humalog on file. Once updated Rx received, can send out Humalog to patient. Sent Rx for Humalog to [facility]. Called and spoke with patient's daughter, Nicole to provide above update. Joanie Stone, PharmD, BCACP Primary Care Clinical Cementer Machine Joiner Allergies As of Date: 03/13/2024 Noted Allergy Reaction LISINOPRIL 06/06/2011 3 - Cough Comments: Resolved after stopped medication REMERON (MIRTAZAPINE) 11/13/2021 14 - Other: See Comments Comments: Contributed to trouble with memory. Also caused anxiety and irritability SEASONAL ALLERGIES 06/26/2013 14 - Other: See Comments Comments: wheezing Date Reviewed: 03/09/2024 Reviewed by: Mi Poole APRN.CREDIT RISK MANAGER - Fully Assessed Reason for Visit: Medication Update [3624] Order(s):Order #: [id number] Prescriptions as of 03/13/2024 - insulin lispro (HUMALOG KWIKPEN INSULIN) 100 unit/mL Take 6 units prior to breakfast, 6 units prior to lunch, and 6 units prior to dinner. If replacing meal with a protein shake, take 4 units with shake. Max 18 units/day. ENROLLED IN [employer] PAP - insulin glargine (LANTUS SOLOSTAR U-100 INSULIN) 100 unit/mL (3 mL) Inject 20 Units subcutaneously daily at bedtime. - atorvastatin (LIPITOR) 40 mg tablet Take 1 tablet by mouth once daily. - losartan (COZAAR) 50 mg tablet Take 1 tablet by mouth once daily. - metoprolol succinate ER (TOPROL XL) 100 mg Take 1 tablet by mouth once daily. - Blood-Glucose Meter,Continuous (FREESTYLE MARYANN 3 READER) [facility] Use to check blood sugar at least four (4) times daily. - Blood-Glucose Sensor (FREESTYLE MARYANN 3 SENSOR) maynor Apply new sensor every fourteen (14) days to upper arm. - cycloSPORINE (RESTASIS) 0.05 % ophthalmic emulsion Use 1 Drop in both eyes two times a day. (Dr. Candelaria--started 2 weeks ago) - potassium chloride ER (KLOR-CON) 20 mEq tablet - clopidogrel (PLAVIX) 75 mg tablet Take 75 mg by mouth once daily. - vit A/vit C/vit E/zinc/copper (PRESERVISION AREDS ORAL) Take by mouth twice daily. - furosemide (LASIX) 40 mg tablet Take 40 mg by mouth once daily. - aspirin, enteric coated (ASPIRIN, ENTERIC COATED) 81 mg EC tablet Take 81 mg by mouth once daily. - tuvehipv-otm-gzke-FA-lutein (CENTRUM SILVER WOMEN) 8 mg iron-400 mcg-300 mcg tab Take 1 tablet by mouth daily - Lancets lancets Test blood sugar(s) 3 times daily. Dx: Type 2 DM - Controlled E11.65 Insulin: Yes - nitroglycerin sublingual (NITROQUICK) 0.4 mg SL tablet Dissolve 0.4 mg under the tongue as needed. If no pain relief call 911. Dr. Hoyos. - vitamin b complex tab Take 1 tablet by mouth once daily. - Cholecalciferol, Vitamin D3, 2,000 unit Tab Take 1 capsule by mouth one time daily - albuterol HFA (PROAIR HFA) 90 mcg/actuation inhaler Inhale 2 Puffs as instructed every 4 hours as needed. Meds Comments as of 08/30/2010: Problem List As Of Date 03/13/2024 Noted Resolved MYALGIA AND MYOSITIS NOS [KLC9737] Mixed hyperlipidemia [E78.2] Essential hypertension [I10] Class 1 obesity due to excess calories with ser* 02/13/2021 CERVICAL DISC DEGEN [M50.30] 01/23/2006 Type 2 diabetes mellitus, uncontrolled [UMB1862]01/23/2006 05/14/2022 Cervical radiculopathy [FAK8240] 01/23/2006 ESOPHAGEAL REFLUX [K21.9] 07/29/2006 RETINAL HEMORRHAGE [H35.60] 02/27/2007 BONE AND CARTILAGE DIS NOS [M89.9, M94.9] 05/27/2007 Acute gastritis without mention of hemorrhage [*04/04/2010 05/14/2022 Diaphragmatic hernia without mention of obstruc*04/04/2010 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] 05/22/2010 Sleep apnea [G47.30] 10/09/2011 Choledocholithiasis [K80.50] 04/07/2012 Chronic cholecystitis [K81.1] 04/07/2012 Gastroparesis [K31.84] 06/26/2013 Moderate aortic stenosis by prior echocardiogra*05/19/2018 Type 2 diabetes mellitus without complication, *11/13/2021 Secondary pulmonary arterial hypertension (HCC)*08/13/2022 Coronary artery disease involving port heiden harris*08/13/2022 Prescriptions ordered this encounter Disp Refills Start End INSULIN LISPRO (U-100) 100 UNIT/ML S* 30 mL 3 03/13/2024 Cmt: Please contact Mark WelchD at [phone] with any questions regarding this script. Sig: Take 6 units prior to breakfast, 6 units prior to lunch, and 6 units prior to dinner. If replacing meal with a protein shake, take 4 units with shake. Max 18 units/day. ENROLLED IN [employer] PAP Medications Discontinued During This Encounter Prescriptions - insulin lispro (HUMALOG KWIKPEN INSULIN) 100 unit/mL (Discontinued) Take 6 units prior to breakfast, 6 units prior to lunch, and 6 units prior to dinner. If replacing meal with a protein shake, take 4 units with shake. Gets from [facility] Encounter Status:Closed by JOANIE STONE on 03/13/24 CNPN Observed: 03/13/2024 12:00 AM Status: COMPLETED Source: [facility] Telephone (INTMWS) MAGNOLIA FISHER ([id number]) 1940 F Date Time Provider Department 03/13/24 MI POOLE During your visit today, we recorded the following information about you: Chyna Aleman LPN 03/13/2024 9:23 AM Signed ----- Message from Mi Fox APRN.CREDIT RISK MANAGER sent at 03/13/2024 7:38 AM EST ----- A1c is slightly increased. Will check with pharmD regarding assistance program for short acting insulin, has not yet received. Chyna Aleman LPN 03/13/2024 9:28 AM Signed Phoned patient went over results, notes from Mi Poole FAMILY PROGRAM SPECIALIST with understanding. Patient said she is under a lot of stress right now family illness and she can not drive with her eyesight. She is in the middle of doing the patient assistance program to get her insulin. Allergies As of Date: 03/13/2024 Noted Allergy Reaction LISINOPRIL 06/06/2011 3 - Cough Comments: Resolved after stopped medication REMERON (MIRTAZAPINE) 11/13/2021 14 - Other: See Comments Comments: Contributed to trouble with memory. Also caused anxiety and irritability SEASONAL ALLERGIES 06/26/2013 14 - Other: See Comments Comments: wheezing Date Reviewed: 03/09/2024 Reviewed by: iM Poole APRN.CREDIT RISK MANAGER - Fully Assessed Reason for Visit: Results [95] Prescriptions as of 03/13/2024 - insulin glargine (LANTUS SOLOSTAR U-100 INSULIN) 100 unit/mL (3 mL) Inject 20 Units subcutaneously daily at bedtime. - insulin lispro (HUMALOG KWIKPEN INSULIN) 100 unit/mL Take 6 units prior to breakfast, 6 units prior to lunch, and 6 units prior to dinner. If replacing meal with a protein shake, take 4 units with shake. Gets from [facility] - atorvastatin (LIPITOR) 40 mg tablet Take 1 tablet by mouth once daily. - losartan (COZAAR) 50 mg tablet Take 1 tablet by mouth once daily. - metoprolol succinate ER (TOPROL XL) 100 mg Take 1 tablet by mouth once daily. - Blood-Glucose Meter,Continuous (FREESTYLE MARYANN 3 READER) [facility] Use to check blood sugar at least four (4) times daily. - Blood-Glucose Sensor (FREESTYLE MARYANN 3 SENSOR) maynor Apply new sensor every fourteen (14) days to upper arm. - cycloSPORINE (RESTASIS) 0.05 % ophthalmic emulsion Use 1 Drop in both eyes two times a day. (Dr. Candelaria--started 2 weeks ago) - potassium chloride ER (KLOR-CON) 20 mEq tablet - clopidogrel (PLAVIX) 75 mg tablet Take 75 mg by mouth once daily. - vit A/vit C/vit E/zinc/copper (PRESERVISION AREDS ORAL) Take by mouth twice daily. - furosemide (LASIX) 40 mg tablet Take 40 mg by mouth once daily. - aspirin, enteric coated (ASPIRIN, ENTERIC COATED) 81 mg EC tablet Take 81 mg by mouth once daily. - njuaipdu-nov-fvvd-FA-lutein (CENTRUM SILVER WOMEN) 8 mg iron-400 mcg-300 mcg tab Take 1 tablet by mouth daily - Lancets lancets Test blood sugar(s) 3 times daily. Dx: Type 2 DM - Controlled E11.65 Insulin: Yes - nitroglycerin sublingual (NITROQUICK) 0.4 mg SL tablet Dissolve 0.4 mg under the tongue as needed. If no pain relief call 911. Dr. Hoyos. - vitamin b complex tab Take 1 tablet by mouth once daily. - Cholecalciferol, Vitamin D3, 2,000 unit Tab Take 1 capsule by mouth one time daily - albuterol HFA (PROAIR HFA) 90 mcg/actuation inhaler Inhale 2 Puffs as instructed every 4 hours as needed. Meds Comments as of 08/30/2010: Problem List As Of Date 03/13/2024 Noted Resolved MYALGIA AND MYOSITIS NOS [[id number]] Mixed hyperlipidemia [E78.2] Essential hypertension [I10] Class 1 obesity due to excess calories with ser* 02/13/2021 CERVICAL DISC DEGEN [M50.30] 01/23/2006 Type 2 diabetes mellitus, uncontrolled [ELF3500]01/23/2006 05/14/2022 Cervical radiculopathy [DNX9618] 01/23/2006 ESOPHAGEAL REFLUX [K21.9] 07/29/2006 RETINAL HEMORRHAGE [H35.60] 02/27/2007 BONE AND CARTILAGE DIS NOS [M89.9, M94.9] 05/27/2007 Acute gastritis without mention of hemorrhage [*04/04/2010 05/14/2022 Diaphragmatic hernia without mention of obstruc*04/04/2010 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] 05/22/2010 Sleep apnea [G47.30] 10/09/2011 Choledocholithiasis [K80.50] 04/07/2012 Chronic cholecystitis [K81.1] 04/07/2012 Gastroparesis [K31.84] 06/26/2013 Moderate aortic stenosis by prior echocardiogra*05/19/2018 Type 2 diabetes mellitus without complication, *11/13/2021 Secondary pulmonary arterial hypertension (HCC)*08/13/2022 Coronary artery disease involving port heiden harris*08/13/2022 Encounter Status:Closed by CHYNA ALEMAN on 03/13/24 ALBUMIN/CREATININE RATIO, URINE Collect ed: 03/10/2024 7:11 AM Status: F Source: [facility] Order Comment: Specimen Type : URINE SPECIMEN Ordering Facility: [facility] Address: [address] [place] [address] TYPE CODE TESTS RESULT OUT OF RANGE REFERENCE UNITS LAB 2161-8(LOINC) Creat Ur-mCnc 29.1 20.0-300.0 m g/dL LAB 34929-5(LOINC ) Microalbumin Ur-mCnc <12.0 mg/L LAB 9318-7(LOINC) Albumin/Creat Ur Result Comment: Not calculat ed Adult Male and Female Nephrotic Criteria: <30 mg/g is considered normal to mildly increased 30-300 mg/g is considered moderately increased >300 mg/g is considered severely increased KDIGO. (2013). KDIGO 2012 Clinical Practice Guideline for the Evaluation and Management of Chronic Kidney Disease. Official Journal of the International Society of Nephrology, 3(1), 1-150. Performed By: #### UACR #### [facility] CLIA [id number] [address] [place] [address] [place] COMP METAB 2000 PNL SERPL Collected: 7:03 AM Status: F Source: [facility] Comment: Specimen Type : BLOOD SPECIMEN Ordering Facility: [facility] Address: [address] [place] [address] TYPE CODE TESTS RESULT OUT OF RANGE REFERENCE UNITS LAB 2885-2(LOINC) Prot SerPl-mCnc 6.7 6.3-8.0 g/dL LAB 1751-7(LOINC) Albumin SerPl-mCnc 4.1 3.9-4.9 g/dL LAB 89496-6(LOINC) Calcium SerPl-mCnc 9.4 8.5-10.2 mg/dL LAB 1975-2(LOINC) Bilirub SerPl-mCnc 1.2 0.2-1.3 mg/dL LAB 6768-6(LOINC) ALP SerPl-cCnc 121 34-123 U/L LAB 1920-8(LOINC) AST SerPl-cCnc 37 High 13-35 U/L LAB 1742-6(LOINC) ALT SerPl-cCnc 25 7-38 U/L LAB 2345-7(LOINC) Glucose SerPl-mCnc 110 High 74-99 mg/dL Result Comment: The [place] Diabetes Association (ADA) provides guidance for cutoff values for fasting glucose and random glucose. The ADA defines fasting as no caloric intake for at least 8 hours. Fasting plasma glucose results between 100 to 125 [...] Standards of Medical Care in Diabetes 2016, [place] Diabetes Association. Diabetes Care. 2016.39(Suppl 1). LAB 3094-0(LOINC) BUN SerPl-mCnc 10 7-21 mg/ dL LAB 2160-0(LOINC) Creat SerPl-mCnc 0.62 0.58-0.96 mg/dL LAB 2951-2(LOINC) Sodium SerPl-sCnc 138 136-144 mmol/L LAB 2823-3(LOINC) Potassium SerPl-sCnc 4.3 3.7-5.1 mmol/L LAB 2075-0(LOINC) Chloride SerPl-sCnc 100 98-107 mmol/L LAB 2028-9(LOINC) CO2 SerPl-sCnc 29 22-30 mmo l/L LAB 32323-4(LOINC) Anion Gap SerPl-sCnc 9 8-15 mmol/L LAB 31525-1(LOINC) Creatinine + eGFR Pnl SerPlBld 90 >=60 mL/min/1 .73m??? Result Comment: Estimated Gl omerular Filtration Rate (eGFR) is calculated using the 2020 CKD-EPI creatinine equation. This equation utilizes serum creatinine, sex, and age as parameters. The creatinine assay has traceable calibration to isotope dilution-mass spectrometry. Refer to KDIGO guidelines for clinical interpretation. In patients with unstable renal function, e.g. those with acute kidney injury, the eGFR may not accurately reflect actual GFR. Performed By: #### 11920-2, 34976-5 #### [facility] CLIA [id number] [address] [place] [address] [place] [address] [place] LIPID 1996 PNL SERPL Collected: 024 7:03 AM Status: F Source: [facility] Order Comment: Specimen Type : BLOOD SPECIMEN Ordering Facility: [facility] Address: [address] [place] [address] TYPE CODE TESTS RESULT OUT OF RANGE REFERENCE UNITS LAB 2093-3(LOINC) Cholest SerPl-mCnc 111 <200 mg/dL Result Comment: <200 mg/dL, Desirable 200-239 mg/dL, Borderline high >239 mg/dL, High LAB 2571-8(LOINC) Trigl SerPl-mCnc 49 <150 mg/dL Result Comment: <150 mg/dL, Normal 150-199 mg/dL, Borderline high 200-499 mg/dL, High >499 mg/dL, Very high LAB 2085-9(LOINC) HDLc SerPl-mCnc 59 >39 mg/dL Result Comment: 40-59 mg/dL, Acceptable >59 mg/dL, High: Negative risk factor for coronary heart disease <40 mg/dL, Low: Positive risk factor for coronary heart disease LAB 70255-7(LOINC) NonHDLc SerPl-mCnc 52 <130 mg/dL Result Comment: <130 mg/dL, Optimal 130-159 mg/dL, Near optimal/above optimal 160-189 mg/dL, Borderline high 190-219 mg/dL, High >219 mg/dL, Very high Secondary prevention optimal non HDL Cholesterol levels are recommended to be <100 mg/dL LAB FT FASTING TIME 12 hrs LAB 53936-5(LOINC) VLDLc SerPl Calc-mCnc 10 <30 mg/dL LAB 9830-1(LOINC) Cholest/HDLc SerPl 1.88 <5.10 LAB 2089-1(LOINC) LDLc SerPl-mCnc 42 <100 mg/dL Result Comment: <100 mg/dL, Optimal 100-129 mg/dL, Near optimal/above optimal 130-159 mg/dL, Borderline high 160-189 mg/dL, High >189 mg/dL, Very high Secondary prevention optimal LDL Cholesterol levels are recommended to be < 70 mg/dL LAB 44945-4(LOINC) LDLc/HDLc SerPl 0.71 <2.54 Result Comment: Reference: 1. National Cholesterol Education Program ATP III Guideline At-A-Glance Quick Desk Reference: National Heart, Lung, and Blood [place]. National Institutes of Health. 2001: NIH Publication No. 01-3305. 2. An International Atherosclerosis Society position paper: global recommendations for the management of dyslipidemia: executive summary, Atherosclerosis. 2014: 232(2):410-413. Performed By: #### 73265-5, 12368-6 #### [facility] CLIA [id number] [address] [place] [address] OF [facility] CBC PNL BLD AUTO Collected: 4 7:03 AM Status: F Source: [facility] Order Comment: Specimen Type : BLOOD SPECIMEN Ordering Facility: [facility] Address: [address] [place] [address] TYPE CODE TESTS RESULT OUT OF RANGE REFERENCE UNITS LAB 6690-2(LOINC) WBC # Bld Auto 8.43 3.70-11.00 k/uL LAB 789-8(LOINC) RBC # Bld Auto 4.15 3.90-5.20 m/uL LAB 718-7(LOINC) Hgb Bld-mCnc 13.8 11.5-15.5 g/dL LAB 4544-3(LOINC) Hct VFr Bld Auto 42.1 36.0-46.0 % LAB 787-2(LOINC) MCV RBC Auto 101.4 High 80.0-100.0 fL LAB 785-6(LOINC) MCH RBC Qn Auto 33.3 26.0-34.0 pg LAB 786-4(LOINC) MCHC RBC Auto-mCnc 32.8 30.5-36.0 g/dL LAB 47167-2(LOINC) RDW RBC-Rto 12.2 11.5-15.0 % LAB 777-3(LOINC) Platelet # Bld Auto 227 150-400 k/uL LAB 88826-4(LOINC) PMV Bld Auto 10.9 9.0-12.7 fL LAB 771-6(LOINC) nRBC # Bld Auto <0.01 <0.01 k/uL Performed By: #### 61923-4 # ### [facility] CLIA [id number] [address] [place] [address] [place] DEPRECATED HGB A1C BLD Collected: 03/10 7:03 AM Status: F Source: [facility] Order Comment: Specimen Type : BLOOD SPECIMEN Ordering Facility: [facility] Address: [address] [place] [address] TYPE CODE TESTS RESULT OUT OF RANGE REFERENCE UNITS LAB 4548-4([facility]) HbA1c MFr Bld 6.8 High 4.3-5.6 % Result Comment: [place] Nancy betes Association guidelines indicate that patients with HgbA1c in the range 5.7-6.4% are at increased risk for development of diabetes, and intervention by lifestyle modification may be beneficial. HgbA1c greater or equal to 6.5% is considered diagnostic of diabetes. LAB 52719-3(INC) Est. average glucose Bld gHb Est-mCnc 148 mg/dL Result Comment: eAG: (Estima asuncion average glucose) is a calculated value from HgbA1c and is account executive sales representative of the average blood glucose level in the last 2-3 month period. Performed By: #### 65518-1 # ### [facility] CLIA [id number] [address] [place] [address] [place] 25(OH)D3 SERPL-MCNC Collected: 03/10/20 7:03 AM Status: F Source: [facility] Comment: Specimen Type : BLOOD SPECIMEN Ordering Facility: [facility] Address: [address] [place] [address] TYPE CODE TESTS RESULT OUT OF RANGE REFERENCE UNITS LAB 1989-3(LOINC) 25(OH)D3 SerPl-mCnc 58.2 31.0-80.0 ng/mL Result Comment: Classificati on of 25 OH Vitamin D status: Deficiency/Insufficiency: < or = 30 ng/ml. Sufficiency/Optimal Levels: 31-80 ng/mL Toxicity: > 100 ng/mL. Test performed by chemiluminescent immunoassay. Performed By: #### 1989-3 ## ## [facility] CLIA [id number] [address] [place] [address] HEMOCCULT STL QL IA Collected: 03/10/2024 6:[address] atus: F Source: [facility] Order Comment: Specimen Type : STOOL SPECIMEN Ordering Facility: [facility] Address: [address] [place] [address] TYPE CODE TESTS RESULT OUT OF RANGE REFERENCE UNITS LAB 98827-4(LOINC) Hemoccult Stl Ql IA Negative Negative Performed By: #### 25408-4 # ### [facility] CLIA [id number] [address] [place] [address] PROGRESS Observed: 03/09/2024 10:18 AM Status: COMPLETED Source: [facility] HNO ID: [id number] Author: MI POOLE APRN.CREDIT RISK MANAGER Service: ? Author Type: Nurse Specialist Type: Progress Notes Filed: 03/09/2024 11:05 Note Text: SUBJECTIVE: Shingrix Vaccine(2 of 3) due on 11/19/2012 RSV Vaccine(1 - 1-dose 75+ series) Never done Colorectal Cancer Screening due on 05/24/2023 Urine Albumin:Creatinine Ratio due on 02/12/2024 LDL Cholesterol due on 02/12/2024 Diabetic Foot Exam due on 02/15/2024 HPI Magnolia Fisher is a 83 year old female. PMH significant for ACTIVE PROBLEM LIST Myalgia and Myositis, Unspecified Mixed Hyperlipidemia Essential Hypertension Degeneration of Cervical Intervertebral Disc Cervical radiculopathy Esophageal Reflux Retinal Hemorrhage Disorder of Bone and Cartilage, Unspecified Diaphragmatic Hernia Without Mention of Obstruction Or Gangrene Reactive Depression Sleep Apnea Choledocholithiasis Chronic Cholecystitis Gastroparesis Moderate Aortic Stenosis By Prior Echocardiogram Type 2 Diabetes Mellitus Without Complication, With Long-Term Current Use of Insulin (Hcc) Secondary Pulmonary Arterial Hypertension (Hcc) Coronary Artery Disease Involving Andreafski Coronary Artery Presents today for routine follow-up visit. Presents with her daughter Nicole. Weight is stable. She is active s tolerated, walking the dog 4 times per day. S/P transcatheter aortic valve replacement Evolut FX transcatheter bioprosthetic aortic valve with a size of 26 mm.at [facility] September 11, [address]Peter Edwards for severe symptomatic nonrheumatic aortic valve stenosis. History of CAD status post CABG 1998 MACARIO to LAD, left radial to the diagonal. Coronary stent placement January 04, 2021 NICO ostial left circumflex. Following currently with [facility]. She notes decreased vision. No longer driving. Notes mood stable on current treatments. Notes CGM is very helpful. Has gotten short acting insulin through [facility] program but has not yet received long acting insulin through [facility]. DIABETES MELLITUS: Without report of excessive thirst or increased frequency of urination, chest pain or dyspnea , numbness, tingling or pain in extremities, new or unusual visual symptoms, low sugar/hypoglycemic reactions, weight loss/gain, lightheadedness/dizziness, and bowel changes/loose stools. Patient's last HgA1C was Hemoglobin A1C (%) Date Value 06/05/2023 6.6 02/11/2023 6.6 05/13/2021 7.6 08/06/2020 9.0 Hemoglobin A1C (POCT) (%) Date Value 12/31/2023 7.0 ) Podiatry: [facility] Ophthalmology: [facility], retinopathy is present. HTN: Without report of headache, chest pain, palpitations, dyspnea, peripheral edema, orthopnea, fatigue, and PND. Last 14 Encounter BP Readings: Date: BP: 03/09/2024 112/57 12/31/2023 102/58 09/27/2023 121/66 02/14/2023 110/63 11/14/2022 136/82 08/13/2022 130/74 05/16/2022 110/62 02/14/2022 108/62 11/13/2021 112/60 08/14/2021 116/64 05/16/2021 138/78 02/13/2021 102/58 10/17/2020 130/60 07/29/2020 128/74 Hyperlipidemia. Ms. Fisher reports doing well on current therapy . Her most recent lipid panels are: Cholesterol, Total (mg/dL) Date Value 02/11/2023 126 05/13/2021 133 04/03/2018 188 Total Cholesterol, Nonfasting (mg/dL) Date Value 11/13/2021 115 Cholesterol (mg/dL) Date Value 06/06/2018 174 HDL Cholesterol (mg/dL) Date Value 02/11/2023 60 05/13/2021 58 06/06/2018 55 04/03/2018 59 HDL Cholesterol, Nonfasting (mg/dL) Date Value 11/13/2021 53 LDL Cholesterol (mg/dL) Date Value 02/11/2023 49 05/13/2021 56 06/06/2018 100 04/03/2018 111 LDL Cholesterol, Nonfasting (mg/dL) Date Value 11/13/2021 43 Triglyceride (mg/dL) Date Value 02/11/2023 87 05/13/2021 95 06/06/2018 95 04/03/2018 92 Triglycerides, Nonfasting (mg/dL) Date Value 11/13/2021 96 Review of Systems Constitutional: Negative. Respiratory: Negative. Cardiovascular: Negative. Endocrine: Negative. Objective BP 112/57 Pulse (!) 54 Resp 16 Wt 68.4 kg (150 lb 12.7 oz) BMI 29.22 kg/m? Physical Exam Vitals and nursing note reviewed. Constitutional: Appearance: Normal appearance. HENT: Head: Normocephalic and atraumatic. Eyes: Conjunctiva/sclera: Conjunctivae normal. Neck: Thyroid: No thyromegaly. Vascular: Normal carotid pulses. No JVD. Cardiovascular: Rate and Rhythm: Normal rate and regular rhythm. Pulses: Carotid pulses are 2+ on the right side and 2+ on the left side. Radial pulses are 2+ on the right side and 2+ on the left side. Heart sounds: Normal heart sounds. Pulmonary: Effort: Pulmonary effort is normal. Breath sounds: Normal breath sounds. Abdominal: General: Bowel sounds are normal. Palpations: Abdomen is soft. Musculoskeletal: Right lower leg: No edema. Left lower leg: No edema. Skin: General: Skin is warm and dry. Neurological: General: No focal deficit present. Mental Status: She is alert and oriented to person, place, and time. ALLERGIES Allergen Reactions Lisinopril Cough Resolved after stopped medication Remeron [Mirtazapin* Other: See Comments Contributed to trouble with memory. Also caused anxiety and irritability Seasonal Allergies Other: See Comments wheezing Medication insulin glargine (LANTUS SOLOSTAR U-100 INSULIN) 100 unit/mL (3 mL) Inject 20 Units subcutaneously daily at bedtime. insulin lispro (HUMALOG KWIKPEN INSULIN) 100 unit/mL Take 6 units prior to breakfast, 6 units prior to lunch, and 6 units prior to dinner. If replacing meal with a protein shake, take 4 units with shake. Gets from [facility] atorvastatin (LIPITOR) 40 mg tablet Take 1 tablet by mouth once daily. losartan (COZAAR) 50 mg tablet Take 1 tablet by mouth once daily. metoprolol succinate ER (TOPROL XL) 100 mg Take 1 tablet by mouth once daily. Blood-Glucose Meter,Continuous (FREESTYLE MARYANN 3 READER) [facility] Use to check blood sugar at least four (4) times daily. Blood-Glucose Sensor (FREESTYLE MARYANN 3 SENSOR) [facility] Apply new sensor every fourteen (14) days to upper arm. cycloSPORINE (RESTASIS) 0.05 % ophthalmic emulsion Use 1 Drop in both eyes two times a day. (Dr. Candelaria--started 2 weeks ago) potassium chloride ER (KLOR-CON) 20 mEq tablet clopidogrel (PLAVIX) 75 mg tablet Take 75 mg by mouth once daily. vit A/vit C/vit E/zinc/copper (PRESERVISION AREDS ORAL) Take by mouth twice daily. furosemide (LASIX) 40 mg tablet Take 40 mg by mouth once daily. aspirin, enteric coated (ASPIRIN, ENTERIC COATED) 81 mg EC tablet Take 81 mg by mouth once daily. kysbznqa-xcj-rlqc-FA-lutein (CENTRUM SILVER WOMEN) 8 mg iron-400 mcg-300 mcg tab Take 1 tablet by mouth daily Lancets lancets Test blood sugar(s) 3 times daily. Dx: Type 2 DM - Controlled E11.65 Insulin: Yes nitroglycerin sublingual (NITROQUICK) 0.4 mg SL tablet Dissolve 0.4 mg under the tongue as needed. If no pain relief call 911. Dr. Hoyos. vitamin b complex tab Take 1 tablet by mouth once daily. Cholecalciferol, Vitamin D3, 2,000 unit Tab Take 1 capsule by mouth one time daily albuterol HFA (PROAIR HFA) 90 mcg/actuation inhaler Inhale 2 Puffs as instructed every 4 hours as needed. PAST MEDICAL HISTORY Diagnosis Date Acute gastritis without mention of hemorrhage Aortic stenosis, mild 05/19/2018 Echocardiogram at [facility] 04/16/2018 Asthma Coronary atherosclerosis of unspecified type of vessel, port heiden or graft Depression Diaphragmatic hernia without mention of obstruction or gangrene Esophageal reflux 07/29/2006 Hypersomnia with sleep apnea, unspecified Irritable bowel syndrome Localized osteoarthrosis not specified whether primary or secondary, unspecified site Myalgia and myositis, unspecified Obesity, unspecified Obstructive sleep apnea Other and unspecified hyperlipidemia Other specified gastritis Retinal hemorrhage 02/27/2007 Dr. Yu Type II or unspecified type diabetes mellitus without mention of complication, uncontrolled Unspecified essential hypertension Social History Tobacco Use Smoking status: Former Smokeless tobacco: Never Substance Use Topics Alcohol use: No Drug use: Never ASSESSMENT/PLAN: 1. Type 2 diabetes mellitus without complication, with long-term current use of insulin (HCC) - ICD9: 250.00, V58.67, ICD10: E11.9, Z79.4 (primary diagnosis) - Controlled - Continue current medications - Blood glucose monitoring - using CGM - Endorse healthy diet and regular exercise 2. Essential hypertension - ICD9: 401.9, ICD10: I10 controlled - Continue current medications - Encouraged sodium restriction, DASH or Mediterranean diet - Recommend regular aerobic exercise 3. Gastroesophageal reflux disease, unspecified whether esophagitis present - ICD9: 530.81, ICD10: K21.9 Controlled - Endorse lifestyle modifications Continue with current treatment unchanged for now 4. Mixed hyperlipidemia - ICD9: 272.2, ICD10: E78.2 Recommend a plant based diet such as Mediterranean diet with plenty of vegetables, fruits,whole grains, fish, chicken, turkey or plant proteins and routine exercise such as walking Continue with current treatment statin unchanged for now 5. S/P CABG (coronary artery bypass graft) - ICD9: V45.81, ICD10: Z95.1 7. S/P TAVR (transcatheter aortic valve replacement) - ICD9: V43.3, ICD10: Z95.2 Followed by [facility] 6. [place] (hard of hearing) - ICD9: 389.9, ICD10: H91.90 - CONSULT TO ENT 8. Screening for colon cancer - ICD9: V76.51, ICD10: Z12.11 - IMMUNOCHEMICAL FECAL OCCULT BLOOD TEST 9. Encounter for immunization - ICD9: V03.89, ICD10: Z23 - RSV PRINTED PHARMACY INSTRUCTIONS check labs tomorrow marlon Mi Poole APRN.CNS one year MD Mi Hunt APRN.CNS Medical Decision Making: Problems: Moderate: 2+ stable chronic illnesses Data: Unique test result(s) reviewed: 3+ Risk: Moderate: Drug management Medical Decision Making Level: 4 - Moderate CNOV Observed: 03/09/2024 9:40 AM Status: COMPLETED Source: [facility] Office Visit (INTMWS) MAGNOLIA FISHER ([id number]) 1940 F Date Time Provider Department 03/09/24 9:40 AM MI POOLE INTWS During your visit today, we recorded the following information about you: Pulse Respiration Blood pressure Weight 54/minute 16/minute 112/57 68.4 kg Mi Poole APRN.CNS 03/09/2024 11:05 AM Signed SUBJECTIVE: Shingrix Vaccine(2 of 3) due on 11/19/2012 RSV Vaccine(1 - 1-dose 75+ series) Never done Colorectal Cancer Screening due on 05/24/2023 Urine Albumin:Creatinine Ratio due on 02/12/2024 LDL Cholesterol due on 02/12/2024 Diabetic Foot Exam due on 02/15/2024 TANVI Amatoon is a 83 year old female. PMH significant for ACTIVE PROBLEM LIST Myalgia and Myositis, Unspecified Mixed Hyperlipidemia Essential Hypertension Degeneration of Cervical Intervertebral Disc Cervical radiculopathy Esophageal Reflux Retinal Hemorrhage Disorder of Bone and Cartilage, Unspecified Diaphragmatic Hernia Without Mention of Obstruction Or Gangrene Reactive Depression Sleep Apnea Choledocholithiasis Chronic Cholecystitis Gastroparesis Moderate Aortic Stenosis By Prior Echocardiogram Type 2 Diabetes Mellitus Without Complication, With Long-Term Current Use of Insulin (Hcc) Secondary Pulmonary Arterial Hypertension (Hcc) Coronary Artery Disease Involving Andreafski Coronary Artery Presents today for routine follow-up visit. Presents with her daughter Nicole. Weight is stable. She is active s tolerated, walking the dog 4 times per day. S/P transcatheter aortic valve replacement Evolut FX transcatheter bioprosthetic aortic valve with a size of 26 mm.at [facility] September 11, [address]Peter Edwards for severe symptomatic nonrheumatic aortic valve stenosis. History of CAD status post CABG 1998 MACARIO to LAD, left radial to the diagonal. Coronary stent placement January 04, 2021 NICO ostial left circumflex. Following currently with [facility]. She notes decreased vision. No longer driving. Notes mood stable on current treatments. Notes CGM is very helpful. Has gotten short acting insulin through [facility] program but has not yet received long acting insulin through [facility]. DIABETES MELLITUS: Without report of excessive thirst or increased frequency of urination, chest pain or dyspnea , numbness, tingling or pain in extremities, new or unusual visual symptoms, low sugar/hypoglycemic reactions, weight loss/gain, lightheadedness/dizziness, and bowel changes/loose stools. Patient's last HgA1C was Hemoglobin A1C (%) Date Value 06/05/2023 6.6 02/11/2023 6.6 05/13/2021 7.6 08/06/2020 9.0 Hemoglobin A1C (POCT) (%) Date Value 12/31/2023 7.0 ) Podiatry: [facility] Ophthalmology: [facility], retinopathy is present. HTN: Without report of headache, chest pain, palpitations, dyspnea, peripheral edema, orthopnea, fatigue, and PND. Last 14 Encounter BP Readings: Date: BP: 03/09/2024 112/57 12/31/2023 102/58 09/27/2023 121/66 02/14/2023 110/63 11/14/2022 136/82 08/13/2022 130/74 05/16/2022 110/62 02/14/2022 108/62 11/13/2021 112/60 08/14/2021 116/64 05/16/2021 138/78 02/13/2021 102/58 10/17/2020 130/60 07/29/2020 128/74 Hyperlipidemia. Ms. Fisher reports doing well on current therapy . Her most recent lipid panels are: Cholesterol, Total (mg/dL) Date Value 02/11/2023 126 05/13/2021 133 04/03/2018 188 Total Cholesterol, Nonfasting (mg/dL) Date Value 11/13/2021 115 Cholesterol (mg/dL) Date Value 06/06/2018 174 HDL Cholesterol (mg/dL) Date Value 02/11/2023 60 05/13/2021 58 06/06/2018 55 04/03/2018 59 HDL Cholesterol, Nonfasting (mg/dL) Date Value 11/13/2021 53 LDL Cholesterol (mg/dL) Date Value 02/11/2023 49 05/13/2021 56 06/06/2018 100 04/03/2018 111 LDL Cholesterol, Nonfasting (mg/dL) Date Value 11/13/2021 43 Triglyceride (mg/dL) Date Value 02/11/2023 87 05/13/2021 95 06/06/2018 95 04/03/2018 92 Triglycerides, Nonfasting (mg/dL) Date Value 11/13/2021 96 Review of Systems Constitutional: Negative. Respiratory: Negative. Cardiovascular: Negative. Endocrine: Negative. Objective BP 112/57 Pulse (!) 54 Resp 16 Wt 68.4 kg (150 lb 12.7 oz) BMI 29.22 kg/m? Physical Exam Vitals and nursing note reviewed. Constitutional: Appearance: Normal appearance. HENT: Head: Normocephalic and atraumatic. Eyes: Conjunctiva/sclera: Conjunctivae normal. Neck: Thyroid: No thyromegaly. Vascular: Normal carotid pulses. No JVD. Cardiovascular: Rate and Rhythm: Normal rate and regular rhythm. Pulses: Carotid pulses are 2+ on the right side and 2+ on the left side. Radial pulses are 2+ on the right side and 2+ on the left side. Heart sounds: Normal heart sounds. Pulmonary: Effort: Pulmonary effort is normal. Breath sounds: Normal breath sounds. Abdominal: General: Bowel sounds are normal. Palpations: Abdomen is soft. Musculoskeletal: Right lower leg: No edema. Left lower leg: No edema. Skin: General: Skin is warm and dry. Neurological: General: No focal deficit present. Mental Status: She is alert and oriented to person, place, and time. ALLERGIES Allergen Reactions Lisinopril Cough Resolved after stopped medication Remeron [Mirtazapin* Other: See Comments Contributed to trouble with memory. Also caused anxiety and irritability Seasonal Allergies Other: See Comments wheezing Medication insulin glargine (LANTUS SOLOSTAR U-100 INSULIN) 100 unit/mL (3 mL) Inject 20 Units subcutaneously daily at bedtime. insulin lispro (HUMALOG KWIKPEN INSULIN) 100 unit/mL Take 6 units prior to breakfast, 6 units prior to lunch, and 6 units prior to dinner. If replacing meal with a protein shake, take 4 units with shake. Gets from [facility] atorvastatin (LIPITOR) 40 mg tablet Take 1 tablet by mouth once daily. losartan (COZAAR) 50 mg tablet Take 1 tablet by mouth once daily. metoprolol succinate ER (TOPROL XL) 100 mg Take 1 tablet by mouth once daily. Blood-Glucose Meter,Continuous (FREESTYLE MARYANN 3 READER) misc Use to check blood sugar at least four (4) times daily. Blood-Glucose Sensor (FREESTYLE MARYANN 3 SENSOR) maynor Apply new sensor every fourteen (14) days to upper arm. cycloSPORINE (RESTASIS) 0.05 % ophthalmic emulsion Use 1 Drop in both eyes two times a day. (Dr. Candelaria--started 2 weeks ago) potassium chloride ER (KLOR-CON) 20 mEq tablet clopidogrel (PLAVIX) 75 mg tablet Take 75 mg by mouth once daily. vit A/vit C/vit E/zinc/copper (PRESERVISION AREDS ORAL) Take by mouth twice daily. furosemide (LASIX) 40 mg tablet Take 40 mg by mouth once daily. aspirin, enteric coated (ASPIRIN, ENTERIC COATED) 81 mg EC tablet Take 81 mg by mouth once daily. jlqxupbr-cna-lrld-FA-lutein (CENTRUM SILVER WOMEN) 8 mg iron-400 mcg-300 mcg tab Take 1 tablet by mouth daily Lancets lancets Test blood sugar(s) 3 times daily. Dx: Type 2 DM - Controlled E11.65 Insulin: Yes nitroglycerin sublingual (NITROQUICK) 0.4 mg SL tablet Dissolve 0.4 mg under the tongue as needed. If no pain relief call 911. Dr. Hoyos. vitamin b complex tab Take 1 tablet by mouth once daily. Cholecalciferol, Vitamin D3, 2,000 unit Tab Take 1 capsule by mouth one time daily albuterol HFA (PROAIR HFA) 90 mcg/actuation inhaler Inhale 2 Puffs as instructed every 4 hours as needed. PAST MEDICAL HISTORY Diagnosis Date Acute gastritis without mention of hemorrhage Aortic stenosis, mild 05/19/2018 Echocardiogram at [facility] 04/16/2018 Asthma Coronary atherosclerosis of unspecified type of vessel, port heiden or graft Depression Diaphragmatic hernia without mention of obstruction or gangrene Esophageal reflux 07/29/2006 Hypersomnia with sleep apnea, unspecified Irritable bowel syndrome Localized osteoarthrosis not specified whether primary or secondary, unspecified site Myalgia and myositis, unspecified Obesity, unspecified Obstructive sleep apnea Other and unspecified hyperlipidemia Other specified gastritis Retinal hemorrhage 02/27/2007 Dr. Yu Type II or unspecified type diabetes mellitus without mention of complication, uncontrolled Unspecified essential hypertension Social History Tobacco Use Smoking status: Former Smokeless tobacco: Never Substance Use Topics Alcohol use: No Drug use: Never ASSESSMENT/PLAN: 1. Type 2 diabetes mellitus without complication, with long-term current use of insulin (HCC) - ICD9: 250.00, V58.67, ICD10: E11.9, Z79.4 (primary diagnosis) - Controlled - Continue current medications - Blood glucose monitoring - using CGM - Endorse healthy diet and regular exercise 2. Essential hypertension - ICD9: 401.9, ICD10: I10 controlled - Continue current medications - Encouraged sodium restriction, DASH or Mediterranean diet - Recommend regular aerobic exercise 3. Gastroesophageal reflux disease, unspecified whether esophagitis present - ICD9: 530.81, ICD10: K21.9 Controlled - Endorse lifestyle modifications Continue with current treatment unchanged for now 4. Mixed hyperlipidemia - ICD9: 272.2, ICD10: E78.2 Recommend a plant based diet such as Mediterranean diet with plenty of vegetables, fruits,whole grains, fish, chicken, turkey or plant proteins and routine exercise such as walking Continue with current treatment statin unchanged for now 5. S/P CABG (coronary artery bypass graft) - ICD9: V45.81, ICD10: Z95.1 7. S/P TAVR (transcatheter aortic valve replacement) - ICD9: V43.3, ICD10: Z95.2 Followed by [facility] 6. [place] (hard of hearing) - ICD9: 389.9, ICD10: H91.90 - CONSULT TO ENT 8. Screening for colon cancer - ICD9: V76.51, ICD10: Z12.11 - IMMUNOCHEMICAL FECAL OCCULT BLOOD TEST 9. Encounter for immunization - ICD9: V03.89, ICD10: Z23 - RSV PRINTED PHARMACY INSTRUCTIONS check labs tomorrow marlon Mi Poole APRN.CREDIT RISK MANAGER one year MD Mi Hunt APRN.CREDIT RISK MANAGER Medical Decision Making: Problems: Moderate: 2+ stable chronic illnesses Data: Unique test result(s) reviewed: 3+ Risk: Moderate: Drug management Medical Decision Making Level: 4 - Moderate Referring Provider: SELF [200] Allergies As of Date: 03/09/2024 Noted Allergy Reaction LISINOPRIL 06/06/2011 3 - Cough Comments: Resolved after stopped medication REMERON (MIRTAZAPINE) 11/13/2021 14 - Other: See Comments Comments: Contributed to trouble with memory. Also caused anxiety and irritability SEASONAL ALLERGIES 06/26/2013 14 - Other: See Comments Comments: wheezing Date Reviewed: 03/09/2024 Reviewed by: Mi Poole APRN.CREDIT RISK MANAGER - Fully Assessed Reason for Visit: F/U 3 Month [443] Primary Visit Diagnosis:Type 2 diabetes mellitus without complication, with long-term current use of insulin (HCC) [E11.9, Z79.4] Other Visit Diagnoses:Essential hypertension [I10] Gastroesophageal reflux disease, unspecified whether esophagitis present [K21.9] Mixed hyperlipidemia [E78.2] S/P CABG (coronary artery bypass graft) [Z95.1] S/P TAVR (transcatheter aortic valve replacement) [Z95.2] [place] (hard of hearing) [H91.90] Screening for colon cancer [Z12.11] Encounter for immunization [Z23] Order(s):IMMUNOCHEMICAL FECAL OCCULT BLOOD TEST [SQIFOBT] Order #: [id number]. #:[id number] RSV PRINTED PHARMACY INSTRUCTIONS [[id number]] Order #: [id number]: 1 CONSULT TO ENT [9008] Order #: [id number]: 1 FUTURE Prescriptions as of 03/09/2024 - insulin glargine (LANTUS SOLOSTAR U-100 INSULIN) 100 unit/mL (3 mL) Inject 20 Units subcutaneously daily at bedtime. - insulin lispro (HUMALOG KWIKPEN INSULIN) 100 unit/mL Take 6 units prior to breakfast, 6 units prior to lunch, and 6 units prior to dinner. If replacing meal with a protein shake, take 4 units with shake. Gets from [facility] - atorvastatin (LIPITOR) 40 mg tablet Take 1 tablet by mouth once daily. - losartan (COZAAR) 50 mg tablet Take 1 tablet by mouth once daily. - metoprolol succinate ER (TOPROL XL) 100 mg Take 1 tablet by mouth once daily. - Blood-Glucose Meter,Continuous (FREESTYLE MARYANN 3 READER) misc Use to check blood sugar at least four (4) times daily. - Blood-Glucose Sensor (FREESTYLE MARYANN 3 SENSOR) maynor Apply new sensor every fourteen (14) days to upper arm. - cycloSPORINE (RESTASIS) 0.05 % ophthalmic emulsion Use 1 Drop in both eyes two times a day. (Dr. Candelaria--started 2 weeks ago) - potassium chloride ER (KLOR-CON) 20 mEq tablet - clopidogrel (PLAVIX) 75 mg tablet Take 75 mg by mouth once daily. - vit A/vit C/vit E/zinc/copper (PRESERVISION AREDS ORAL) Take by mouth twice daily. - furosemide (LASIX) 40 mg tablet Take 40 mg by mouth once daily. - aspirin, enteric coated (ASPIRIN, ENTERIC COATED) 81 mg EC tablet Take 81 mg by mouth once daily. - kztgxacm-xtw-hpwj-FA-lutein (CENTRUM SILVER WOMEN) 8 mg iron-400 mcg-300 mcg tab Take 1 tablet by mouth daily - Lancets lancets Test blood sugar(s) 3 times daily. Dx: Type 2 DM - Controlled E11.65 Insulin: Yes - nitroglycerin sublingual (NITROQUICK) 0.4 mg SL tablet Dissolve 0.4 mg under the tongue as needed. If no pain relief call 911. Dr. Hoyos. - vitamin b complex tab Take 1 tablet by mouth once daily. - Cholecalciferol, Vitamin D3, 2,000 unit Tab Take 1 capsule by mouth one time daily - albuterol HFA (PROAIR HFA) 90 mcg/actuation inhaler Inhale 2 Puffs as instructed every 4 hours as needed. Meds Comments as of 08/30/2010: Problem List As Of Date 03/09/2024 Noted Resolved MYALGIA AND MYOSITIS NOS [[id number]] Mixed hyperlipidemia [E78.2] Essential hypertension [I10] Class 1 obesity due to excess calories with ser* 02/13/2021 CERVICAL DISC DEGEN [M50.30] 01/23/2006 Type 2 diabetes mellitus, uncontrolled [[id number]]01/23/2006 05/14/2022 Cervical radiculopathy [[id number]] 01/23/2006 ESOPHAGEAL REFLUX [K21.9] 07/29/2006 RETINAL HEMORRHAGE [H35.60] 02/27/2007 BONE AND CARTILAGE DIS NOS [M89.9, M94.9] 05/27/2007 Acute gastritis without mention of hemorrhage [*04/04/2010 05/14/2022 Diaphragmatic hernia without mention of obstruc*04/04/2010 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] 05/22/2010 Sleep apnea [G47.30] 10/09/2011 Choledocholithiasis [K80.50] 04/07/2012 Chronic cholecystitis [K81.1] 04/07/2012 Gastroparesis [K31.84] 06/26/2013 Moderate aortic stenosis by prior echocardiogra*05/19/2018 Type 2 diabetes mellitus without complication, *11/13/2021 Secondary pulmonary arterial hypertension (HCC)*08/13/2022 Coronary artery disease involving port heiden harris*08/13/2022 Level of Service: OFFICE/OUTPATIENT ESTABLISHED MOD MDM 30 MIN [75256] Additional E/M codes: VISIT CPLX INHERENT EANDM ASSOC WITH MED * Follow-up and Disposition History for Encounter Date Provider Department Center 03/09/2024 [id number], TERRI INTWS [facility] Encounter Status:Closed by MI POOLE on 03/09/24 PROGRESS Observed: 02/06/2024 9:00 AM Status: COMPLETED Source: [facility] ID: [id number] Author: JOANIE STONE RPh Service: ? Author Type: Pharmacist Type: Progress Notes Filed: 02/06/2024 10:21 Note Text: Primary Care Pharmacy Visit CC (Reason for Consult): (E11.9, Z79.4) Type 2 diabetes mellitus without complication, with long-term current use of insulin (HCC) (primary encounter diagnosis) Goal(s): A1c <8% Last Collaborating Provider Visit: 12/31/[address] Juan José Cooper Phillip is a 83 year old female presenting for follow up visit in person. Patient consents to pharmacy collaborative practice agreement. Last Pharmacy Visit: 01/16/24 (initial visit) - Basaglar restarted, consult to PAP placed for Humalog Interim Events: - 01/16/24 approved for [employer] HPI: Here with daughter, Nicole Confirmed restarting Basaglar after last visit States BGs have been pretty stable lately Has been taking in around 60g carbs/meal Reports not having as many lows as before Has 2 more pens of Basaglar and plenty of Humalog left from [employer] Patient has not yet received shipment from [employer] Current DM Medications: Basaglar 20 units once daily every evening Humalog 6 units three times daily before meals; 4 units if replacing meal with protein shake Previously Trialed DM Meds: Basaglar Metformin Jardiance - cost Inv[employer] Diet Breakfast - 54-64g carbs - oatmeal or sausage sandwich Lunch - 58c - shrimp, crab rolls, 1/2 cookie, goff tomatoes Dinner - yogurt, lettuce, tomatoes, cookie Snack - almonds GLYCEMIC CONTROL: Glucometer present at visit: Yes Hypoglycemia: No CGM Data Past medical history reviewed. ALLERGIES Allergen Reactions Lisinopril Cough Resolved after stopped medication Remeron [Mirtazapin* Other: See Comments Contributed to trouble with memory. Also caused anxiety and irritability Seasonal Allergies Other: See Comments wheezing Current Outpatient Medications Medication Sig Dispense Refill insulin glargine (LANTUS SOLOSTAR U-100 INSULIN) 100 unit/mL (3 mL) Inject 20 Units subcutaneously daily at bedtime. 15 mL 1 insulin lispro (HUMALOG KWIKPEN INSULIN) 100 unit/mL Take 6 units prior to breakfast, 6 units prior to lunch, and 6 units prior to dinner. If replacing meal with a protein shake, take 4 units with shake. Gets from [employer] atorvastatin (LIPITOR) 40 mg tablet Take 1 tablet by mouth once daily. 90 tablet 3 losartan (COZAAR) 50 mg tablet Take 1 tablet by mouth once daily. 90 tablet 3 metoprolol succinate ER (TOPROL XL) 100 mg Take 1 tablet by mouth once daily. 90 tablet 3 Blood-Glucose Meter,Continuous (FREESTYLE MARYANN 3 READER) [facility] Use to check blood sugar at least four (4) times daily. 1 Each 0 Blood-Glucose Sensor (FREESTYLE MARYANN 3 SENSOR) maynor Apply new sensor every fourteen (14) days to upper arm. 6 Each 4 cycloSPORINE (RESTASIS) 0.05 % ophthalmic emulsion Use 1 Drop in both eyes two times a day. (Dr. Candelaria--started 2 weeks ago) potassium chloride ER (KLOR-CON) 20 mEq tablet clopidogrel (PLAVIX) 75 mg tablet Take 75 mg by mouth once daily. vit A/vit C/vit E/zinc/copper (PRESERVISION AREDS ORAL) Take by mouth twice daily. furosemide (LASIX) 40 mg tablet Take 40 mg by mouth once daily. aspirin, enteric coated (ASPIRIN, ENTERIC COATED) 81 mg EC tablet Take 81 mg by mouth once daily. ugipotjj-dic-oszy-FA-lutein (CENTRUM SILVER WOMEN) 8 mg iron-400 mcg-300 mcg tab Take 1 tablet by mouth daily Lancets lancets Test blood sugar(s) 3 times daily. Dx: Type 2 DM - Controlled E11.65 Insulin: Yes 400 Each 3 nitroglycerin sublingual (NITROQUICK) 0.4 mg SL tablet Dissolve 0.4 mg under the tongue as needed. If no pain relief call 911. Dr. Hoyos. 0 vitamin b complex tab Take 1 tablet by mouth once daily. 0 Cholecalciferol, Vitamin D3, 2,000 unit Tab Take 1 capsule by mouth one time daily 0 albuterol HFA (PROAIR HFA) 90 mcg/actuation inhaler Inhale 2 Puffs as instructed every 4 hours as needed. 3 Inhaler 1 No current facility-administered medications for this visit. Pill bottles are not present. Adherence: denies missed doses. Rx coverage: Payor: [employer] MEDICARE / Plan: [employer] MEDICARE PPO / Product Type: PPO / Medications affordable? Enrolled in [employer] PAP (Basaglar and Humalog) PHARMACOTHERAPY PREVENTATIVE MEDS: On ANGELA/ARB: Yes On Statin: Yes On ASA: Yes EXAM: There were no vitals taken for this visit. Last 3 Encounter BP Readings: Date: BP: 12/31/2023 102/58 09/27/2023 121/66 02/14/2023 110/63 Wt: 71.1 kg (156 lb 12 oz) BMI: 30.37 kg/(m2) LABS: Lab Results Component Value Date HBA1C 7.0 12/31/2023 HBA1C 6.6 06/05/2023 HBA1C 6.6 02/11/2023 HBA1C 6.1 08/13/2022 HBA1C 7.6 05/13/2021 HBA1C 9.0 08/06/2020 HBA1C 8.1 04/03/2018 Glucose 111 06/05/2023 BUN 16 06/05/2023 Creatinine 0.70 06/05/2023 Sodium 140 06/05/2023 Potassium 4.4 06/05/2023 Chloride 101 06/05/2023 CO2 28 06/05/2023 Protein, Total 6.9 06/05/2023 Albumin 4.0 06/05/2023 Calcium 9.4 06/05/2023 Alkaline Phosphatase 167 06/05/2023 Bilirubin, Total 0.7 06/05/2023 AST 35 06/05/2023 ALT 59 06/05/2023 Lab Results Component Value Date CHOL 126 02/11/2023 CHOL 133 05/13/2021 LDL 49 02/11/2023 LDL 43 11/13/2021 LDL 56 05/13/2021 HDL 60 02/11/2023 HDL 58 05/13/2021 TG 87 02/11/2023 TG 95 05/13/2021 Albumin/Creat Ratio (mg/g) Date Value 02/11/2023 <20 eGFR-All Other Races (.) Date Value 05/13/2021 >60 Estimated Glomerular Filtration Rate (mL/min/1.73m?) Date Value 06/05/2023 87 ASSESSMENT/PLAN: 1. Type 2 diabetes mellitus without complication, with long-term current use of insulin (HCC) - ICD9: 250.00, V58.67, ICD10: E11.9, Z79.4 - Improving control - Continue current medications - Statin prescribed - atorvastatin - Blood glucose monitoring on a continuous glucose monitoring schedule - Counseled on healthy diet and regular exercise - Discussed diabetic education issues of hypoglycemic/hyperglycemic symptoms - Follow up in 2 months, sooner should any other issues arise. Follow Up: Next PCP visit: 03/09/24 Next PharmD visit: 04/09/24 Joanie Stone, MarkD, BCACP Primary Care Clinical Cementer Machine Joiner I spent a total of 30 minutes on the date of the service which included preparing to see the patient, ugno-vs-bami patient care, completing clinical documentation, and counseling and educating the patient/family/caregiver. CNOV Observed: 02/06/2024 9:00 AM Status: COMPLETED Source: [facility] MAGNOLIA FISHER ([id number]) 1940 F Date Time Provider Department 02/06/24 9:00 AM [facility] During your visit today, we recorded the following information about you: Joanie Stone [facility] 02/06/2024 10:21 AM Signed Primary Care Pharmacy Visit CC (Reason for Consult): (E11.9, Z79.4) Type 2 diabetes mellitus without complication, with long-term current use of insulin (HCC) (primary encounter diagnosis) Goal(s): A1c <8% Last Collaborating Provider Visit: 12/31/[address] Juan José Cooper Phillip is a 83 year old female presenting for follow up visit in person. Patient consents to pharmacy collaborative practice agreement. Last Pharmacy Visit: 01/16/24 (initial visit) - Basaglar restarted, consult to PAP placed for Humalog Interim Events: - 01/16/24 approved for [employer] HPI: Here with daughter, Nicole Confirmed restarting Basaglar after last visit States BGs have been pretty stable lately Has been taking in around 60g carbs/meal Reports not having as many lows as before Has 2 more pens of Basaglar and plenty of Humalog left from [employer] Patient has not yet received shipment from [employer] Current DM Medications: Basaglar 20 units once daily every evening Humalog 6 units three times daily before meals; 4 units if replacing meal with protein shake Previously Trialed DM Meds: Basaglar Metformin Jardiance - cost Invok[employer] Diet Breakfast - 54-64g carbs - oatmeal or sausage sandwich Lunch - 58c - shrimp, crab rolls, 1/2 cookie, goff tomatoes Dinner - yogurt, lettuce, tomatoes, cookie Snack - almonds GLYCEMIC CONTROL: Glucometer present at visit: Yes Hypoglycemia: No CGM Data Past medical history reviewed. ALLERGIES Allergen Reactions Lisinopril Cough Resolved after stopped medication Remeron [Mirtazapin* Other: See Comments Contributed to trouble with memory. Also caused anxiety and irritability Seasonal Allergies Other: See Comments wheezing Current Outpatient Medications Medication Sig Dispense Refill insulin glargine (LANTUS SOLOSTAR U-100 INSULIN) 100 unit/mL (3 mL) Inject 20 Units subcutaneously daily at bedtime. 15 mL 1 insulin lispro (HUMALOG KWIKPEN INSULIN) 100 unit/mL Take 6 units prior to breakfast, 6 units prior to lunch, and 6 units prior to dinner. If replacing meal with a protein shake, take 4 units with shake. Gets from [facility] atorvastatin (LIPITOR) 40 mg tablet Take 1 tablet by mouth once daily. 90 tablet 3 losartan (COZAAR) 50 mg tablet Take 1 tablet by mouth once daily. 90 tablet 3 metoprolol succinate ER (TOPROL XL) 100 mg Take 1 tablet by mouth once daily. 90 tablet 3 Blood-Glucose Meter,Continuous (FREESTYLE MARYANN 3 READER) [facility] Use to check blood sugar at least four (4) times daily. 1 Each 0 Blood-Glucose Sensor (FREESTYLE MARYANN 3 SENSOR) maynor Apply new sensor every fourteen (14) days to upper arm. 6 Each 4 cycloSPORINE (RESTASIS) 0.05 % ophthalmic emulsion Use 1 Drop in both eyes two times a day. (Dr. Candelaria--started 2 weeks ago) potassium chloride ER (KLOR-CON) 20 mEq tablet clopidogrel (PLAVIX) 75 mg tablet Take 75 mg by mouth once daily. vit A/vit C/vit E/zinc/copper (PRESERVISION AREDS ORAL) Take by mouth twice daily. furosemide (LASIX) 40 mg tablet Take 40 mg by mouth once daily. aspirin, enteric coated (ASPIRIN, ENTERIC COATED) 81 mg EC tablet Take 81 mg by mouth once daily. hmwxswal-gpv-pndd-FA-lutein (CENTRUM SILVER WOMEN) 8 mg iron-400 mcg-300 mcg tab Take 1 tablet by mouth daily Lancets lancets Test blood sugar(s) 3 times daily. Dx: Type 2 DM - Controlled E11.65 Insulin: Yes 400 Each 3 nitroglycerin sublingual (NITROQUICK) 0.4 mg SL tablet Dissolve 0.4 mg under the tongue as needed. If no pain relief call 911. Dr. Hoyos. 0 vitamin b complex tab Take 1 tablet by mouth once daily. 0 Cholecalciferol, Vitamin D3, 2,000 unit Tab Take 1 capsule by mouth one time daily 0 albuterol HFA (PROAIR HFA) 90 mcg/actuation inhaler Inhale 2 Puffs as instructed every 4 hours as needed. 3 Inhaler 1 No current facility-administered medications for this visit. Pill bottles are not present. Adherence: denies missed doses. Rx coverage: Payor: HUMANA MEDICARE / Plan: HUMANA MEDICARE PPO / Product Type: PPO / Medications affordable? Enrolled in [employer] PAP (Basaglar and Humalog) PHARMACOTHERAPY PREVENTATIVE MEDS: On ANGELA/ARB: Yes On Statin: Yes On ASA: Yes EXAM: There were no vitals taken for this visit. Last 3 Encounter BP Readings: Date: BP: 12/31/2023 102/58 09/27/2023 121/66 02/14/2023 110/63 Wt: 71.1 kg (156 lb 12 oz) BMI: 30.37 kg/(m2) LABS: Lab Results Component Value Date HBA1C 7.0 12/31/2023 HBA1C 6.6 06/05/2023 HBA1C 6.6 02/11/2023 HBA1C 6.1 08/13/2022 HBA1C 7.6 05/13/2021 HBA1C 9.0 08/06/2020 HBA1C 8.1 04/03/2018 Glucose 111 06/05/2023 BUN 16 06/05/2023 Creatinine 0.70 06/05/2023 Sodium 140 06/05/2023 Potassium 4.4 06/05/2023 Chloride 101 06/05/2023 CO2 28 06/05/2023 Protein, Total 6.9 06/05/2023 Albumin 4.0 06/05/2023 Calcium 9.4 06/05/2023 Alkaline Phosphatase 167 06/05/2023 Bilirubin, Total 0.7 06/05/2023 AST 35 06/05/2023 ALT 59 06/05/2023 Lab Results Component Value Date CHOL 126 02/11/2023 CHOL 133 05/13/2021 LDL 49 02/11/2023 LDL 43 11/13/2021 LDL 56 05/13/2021 HDL 60 02/11/2023 HDL 58 05/13/2021 TG 87 02/11/2023 TG 95 05/13/2021 Albumin/Creat Ratio (mg/g) Date Value 02/11/2023 <20 eGFR-All Other Races (.) Date Value 05/13/2021 >60 Estimated Glomerular Filtration Rate (mL/min/1.73m?) Date Value 06/05/2023 87 ASSESSMENT/PLAN: 1. Type 2 diabetes mellitus without complication, with long-term current use of insulin ([facility]) - ICD9: 250.00, V58.67, ICD10: E11.9, Z79.4 - Improving control - Continue current medications - Statin prescribed - atorvastatin - Blood glucose monitoring on a continuous glucose monitoring schedule - Counseled on healthy diet and regular exercise - Discussed diabetic education issues of hypoglycemic/hyperglycemic symptoms - Follow up in 2 months, sooner should any other issues arise. Follow Up: Next PCP visit: 03/09/24 Next PharmD visit: 04/09/24 Joanie Stone, PharmD, BCACP Primary Care Clinical [employer] I spent a total of 30 minutes on the date of the service which included preparing to see the patient, [id number]-[id number] patient care, completing clinical documentation, and counseling and educating the patient/family/caregiver. Joanie Stone [facility] 02/06/2024 9:22 AM Signed Continue Basaglar 20 units once daily every evening Continue Humalog 6 units three times daily with meals, or 4 units if replacing meal with protein shake or lower carb meal Allergies As of Date: 02/06/2024 Noted Allergy Reaction LISINOPRIL 06/06/2011 3 - Cough Comments: Resolved after stopped medication REMERON (MIRTAZAPINE) 11/13/2021 14 - Other: See Comments Comments: Contributed to trouble with memory. Also caused anxiety and irritability SEASONAL ALLERGIES 06/26/2013 14 - Other: See Comments Comments: wheezing Date Reviewed: 02/06/2024 Reviewed by: Joanie Stone RPh - Fully Assessed Reason for Visit: Diabetes [34] Primary Visit Diagnosis:Type 2 diabetes mellitus without complication, with long-term current use of insulin (HCC) [E11.9, Z79.4] Prescriptions as of 02/06/2024 - insulin glargine (LANTUS SOLOSTAR U-100 INSULIN) 100 unit/mL (3 mL) Inject 20 Units subcutaneously daily at bedtime. - insulin lispro (HUMALOG KWIKPEN INSULIN) 100 unit/mL Take 6 units prior to breakfast, 6 units prior to lunch, and 6 units prior to dinner. If replacing meal with a protein shake, take 4 units with shake. Gets from [facility] - atorvastatin (LIPITOR) 40 mg tablet Take 1 tablet by mouth once daily. - losartan (COZAAR) 50 mg tablet Take 1 tablet by mouth once daily. - metoprolol succinate ER (TOPROL XL) 100 mg Take 1 tablet by mouth once daily. - Blood-Glucose Meter,Continuous (FREESTYLE MARYANN 3 READER) [facility] Use to check blood sugar at least four (4) times daily. - Blood-Glucose Sensor (FREESTYLE MARYANN 3 SENSOR) maynor Apply new sensor every fourteen (14) days to upper arm. - cycloSPORINE (RESTASIS) 0.05 % ophthalmic emulsion Use 1 Drop in both eyes two times a day. (Dr. Candelaria--started 2 weeks ago) - potassium chloride ER (KLOR-CON) 20 mEq tablet - clopidogrel (PLAVIX) 75 mg tablet Take 75 mg by mouth once daily. - vit A/vit C/vit E/zinc/copper (PRESERVISION AREDS ORAL) Take by mouth twice daily. - furosemide (LASIX) 40 mg tablet Take 40 mg by mouth once daily. - aspirin, enteric coated (ASPIRIN, ENTERIC COATED) 81 mg EC tablet Take 81 mg by mouth once daily. - arptwbin-yfo-qrxz-FA-lutein (CENTRUM SILVER WOMEN) 8 mg iron-400 mcg-300 mcg tab Take 1 tablet by mouth daily - Lancets lancets Test blood sugar(s) 3 times daily. Dx: Type 2 DM - Controlled E11.65 Insulin: Yes - nitroglycerin sublingual (NITROQUICK) 0.4 mg SL tablet Dissolve 0.4 mg under the tongue as needed. If no pain relief call 911. Dr. Hoyos. - vitamin b complex tab Take 1 tablet by mouth once daily. - Cholecalciferol, Vitamin D3, 2,000 unit Tab Take 1 capsule by mouth one time daily - albuterol HFA (PROAIR HFA) 90 mcg/actuation inhaler Inhale 2 Puffs as instructed every 4 hours as needed. Meds Comments as of 08/30/2010: Problem List As Of Date 02/06/2024 Noted Resolved MYALGIA AND MYOSITIS NOS [[id number]] Mixed hyperlipidemia [E78.2] Essential hypertension [I10] Class 1 obesity due to excess calories with ser* 02/13/2021 CERVICAL DISC DEGEN [M50.30] 01/23/2006 Type 2 diabetes mellitus, uncontrolled [ESZ5484]01/23/2006 05/14/2022 Cervical radiculopathy [PRZ0433] 01/23/2006 ESOPHAGEAL REFLUX [K21.9] 07/29/2006 RETINAL HEMORRHAGE [H35.60] 02/27/2007 BONE AND CARTILAGE DIS NOS [M89.9, M94.9] 05/27/2007 Acute gastritis without mention of hemorrhage [*04/04/2010 05/14/2022 Diaphragmatic hernia without mention of obstruc*04/04/2010 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] 05/22/2010 Sleep apnea [G47.30] 10/09/2011 Choledocholithiasis [K80.50] 04/07/2012 Chronic cholecystitis [K81.1] 04/07/2012 Gastroparesis [K31.84] 06/26/2013 Moderate aortic stenosis by prior echocardiogra*05/19/2018 Type 2 diabetes mellitus without complication, *11/13/2021 Secondary pulmonary arterial hypertension (HCC)*08/13/2022 Coronary artery disease involving port heiden harris*08/13/2022 Other instructions from your clinician: Continue Basaglar 20 units once daily every evening Continue Humalog 6 units three times daily with meals, or 4 units if replacing meal with protein shake or lower carb meal Encounter Status:Closed by JOANIE STONE on 02/06/24 PROGRESS Observed: 01/28/2024 8:42 AM Status: COMPLETED Source: [facility] HNO ID: [id number] Author: ?, ?, ? Service: ? Author Type: ? Type: Progress Notes Filed: 02/11/2024 14:15 Note Text: Patient has been approved with [facility] for medication(s) Humalog and Basaglar through 03/31/2025. Patient ID is : [id number] Called and confirmed Basaglar approved through 03/31/2025 Below is fax sent to PAP Team alerting of patient approval for Humalog in program through 03/31/2025 . PAP Team will reach out via [employer] to let patient know of approved status. PROGRESS Observed: 01/16/2024 1:14 PM Status: COMPLETED Source: [facility] HNO ID: [id number] Author: ?, ?, ? Service: ? Author Type: ? Type: Progress Notes Filed: 02/11/2024 14:15 Note Text: This patient has been referred by pharmacy for surveillance officer patient assistance program application consultant. STATUS OF APPLICATION: Can be viewed under the encounter Additional Documentation > SmartForms: [facility] PATIENT [facility] Completed forms sent to providers for signatures and/or to surveillance officer will be available under Scanned Documents. The finalized form can be found under PAP_Medication Name_Complete. PAP Brim Stretcher Team will submit and track progress on the completed PAP application. Please do NOT fax to surveillance officer unless directed by the PAP Brim Stretcher Team. Please see SmartForm described above for specifics. Please DO NOT close this encounter. Sent to patient: Pharmacist obtained signature 01/16/24 Sent to prescriber: Faxed to prescriber to be signed 01/16/24 Sent to surveillance officer: Faxed to [facility] 01/24/24 CNOV Observed: 01/16/2024 9:30 AM Status: COMPLETED Source: [facility] Office Visit (PHMEWO) PAULIE FISHERITH Allison ([id number]) 1940 F Date Time Provider Department 01/16/24 9:30 AM JOANIE STONE During your visit today, we recorded the following information about you: Joanie Stone [facility] 01/16/2024 10:57 AM Signed Primary Care Pharmacy Visit CC (Reason for Consult): (E11.9, Z79.4) Type 2 diabetes mellitus without complication, with long-term current use of insulin ([facility]) (primary encounter diagnosis) Goal(s): A1c <8% Last Collaborating Provider Visit: 12/31/[address] Juan José Cooper Phillip is a 83 year old female presenting for follow up visit in person. Patient consents to pharmacy collaborative practice agreement. Last Pharmacy Visit: previously followed with Rekha ([facility] 08/2022 - dc'd back to PCP) HPI: Here with daughter, Nicole Was previously on slow-acting insulin in the past but stopped it and just continued the mealtime insulin Previously having issues getting different insulins from [employer], was enrolled in [employer] Was previously having low readings overnight Appetite is lower overall lately States BGs have been high and low, can't get the BGs low in the morning Takes lispro 15-20 minutes before meals Has 1 pen of Basaglar Last shipment from [employer] was from the spring Current DM Medications: Humalog 18-16-20 (10 units if protein shake replaces meal) - taking 16-18 units with meals, occasionally takes 14 units if having protein shake Previously Trialed DM Meds: Basaglar Metformin Jardiance - cost Invokana Diet Eating 3 meals/day Breakfast - breakfast sandwich - sausage egg and cheese or toasted cheese Lunch - not very hungry, glucerna shake and cookie and fruit Dinner - not very hungry either, frozen meals (stuffed pepper or lasagna) or grilled cheese or salad Snacks - blueberries, cookie (snickerdoodles) Drinking water throughout the day (60 oz/day) Exercise: Yes - walks dog 4-5x/day Caffeine: occasionally GLYCEMIC CONTROL: Glucometer present at visit: Yes - Maryann 3 reader Hypoglycemia: Yes CGM Data Past medical history reviewed. ALLERGIES Allergen Reactions Lisinopril Cough Resolved after stopped medication Remeron [Mirtazapin* Other: See Comments Contributed to trouble with memory. Also caused anxiety and irritability Seasonal Allergies Other: See Comments wheezing Current Outpatient Medications Medication Sig Dispense Refill atorvastatin (LIPITOR) 40 mg tablet Take 1 tablet by mouth once daily. 90 tablet 3 losartan (COZAAR) 50 mg tablet Take 1 tablet by mouth once daily. 90 tablet 3 metoprolol succinate ER (TOPROL XL) 100 mg Take 1 tablet by mouth once daily. 90 tablet 3 insulin lispro (HUMALOG KWIKPEN INSULIN) 100 unit/mL Take 10 units prior to breakfast, 10 units prior to lunch, and 10 units prior to dinner. If replacing meal with a protein shake, take 10 units with shake. Gets from [facility] (Patient taking differently: Take 18 units prior to breakfast, 16 units prior to lunch, and 20 units prior to dinner. If replacing meal with a protein shake, take 10 units with shake. Gets from [facility] (Adjusts as needed based on how much will be eating)) Blood-Glucose Meter,Continuous (FREESTYLE MARYANN 3 READER) [facility] Use to check blood sugar at least four (4) times daily. 1 Each 0 Blood-Glucose Sensor (FREESTYLE MARYANN 3 SENSOR) [facility] Apply new sensor every fourteen (14) days to upper arm. 6 Each 4 cycloSPORINE (RESTASIS) 0.05 % ophthalmic emulsion Use 1 Drop in both eyes two times a day. (Dr. Candelaria--started 2 weeks ago) potassium chloride ER (KLOR-CON) 20 mEq tablet clopidogrel (PLAVIX) 75 mg tablet Take 75 mg by mouth once daily. vit A/vit C/vit E/zinc/copper (PRESERVISION AREDS ORAL) Take by mouth twice daily. furosemide (LASIX) 40 mg tablet Take 40 mg by mouth once daily. aspirin, enteric coated (ASPIRIN, ENTERIC COATED) 81 mg EC tablet Take 81 mg by mouth once daily. unzavbyx-vhn-mmyu-FA-lutein (CENTRUM SILVER WOMEN) 8 mg iron-400 mcg-300 mcg tab Take 1 tablet by mouth daily Lancets lancets Test blood sugar(s) 3 times daily. Dx: Type 2 DM - Controlled E11.65 Insulin: Yes 400 Each 3 nitroglycerin sublingual (NITROQUICK) 0.4 mg SL tablet Dissolve 0.4 mg under the tongue as needed. If no pain relief call 911. Dr. Hoyos. 0 vitamin b complex tab Take 1 tablet by mouth once daily. 0 Cholecalciferol, Vitamin D3, 2,000 unit Tab Take 1 capsule by mouth one time daily 0 albuterol HFA (PROAIR HFA) 90 mcg/actuation inhaler Inhale 2 Puffs as instructed every 4 hours as needed. 3 Inhaler 1 No current facility-administered medications for this visit. Pill bottles are not present. Adherence: denies missed doses. Rx coverage: Payor: HUMANA MEDICARE / Plan: [employer] MEDICARE PPO / Product Type: PPO / Medications affordable? No - previously enrolled in [employer] for insulins PHARMACOTHERAPY PREVENTATIVE MEDS: On ANGELA/ARB: Yes On Statin: Yes On ASA: Yes EXAM: There were no vitals taken for this visit. Last 3 Encounter BP Readings: Date: BP: 12/31/2023 102/58 09/27/2023 121/66 02/14/2023 110/63 Wt: 71.1 kg (156 lb 12 oz) BMI: 30.37 kg/(m2) LABS: Lab Results Component Value Date HBA1C 7.0 12/31/2023 HBA1C 6.6 06/05/2023 HBA1C 6.6 02/11/2023 HBA1C 6.1 08/13/2022 HBA1C 7.6 05/13/2021 HBA1C 9.0 08/06/2020 HBA1C 8.1 04/03/2018 Glucose 111 06/05/2023 BUN 16 06/05/2023 Creatinine 0.70 06/05/2023 Sodium 140 06/05/2023 Potassium 4.4 06/05/2023 Chloride 101 06/05/2023 CO2 28 06/05/2023 Protein, Total 6.9 06/05/2023 Albumin 4.0 06/05/2023 Calcium 9.4 06/05/2023 Alkaline Phosphatase 167 06/05/2023 Bilirubin, Total 0.7 06/05/2023 AST 35 06/05/2023 ALT 59 06/05/2023 Lab Results Component Value Date CHOL 126 02/11/2023 CHOL 133 05/13/2021 LDL 49 02/11/2023 LDL 43 11/13/2021 LDL 56 05/13/2021 HDL 60 02/11/2023 HDL 58 05/13/2021 TG 87 02/11/2023 TG 95 05/13/2021 Albumin/Creat Ratio (mg/g) Date Value 02/11/2023 <20 eGFR-All Other Races (.) Date Value 05/13/2021 >60 Estimated Glomerular Filtration Rate (mL/min/1.73m?) Date Value 06/05/2023 87 ASSESSMENT/PLAN: 1. Type 2 diabetes mellitus without complication, with long-term current use of insulin ([facility]) - ICD9: 250.00, V58.67, ICD10: E11.9, Z79.4 - Controlled - Restart Basaglar 20 units once daily every evening - Decrease Humalog to 6 units three times daily before meals; 4 units if replacing meal with protein shake - Statin prescribed - atorvastatin - Blood glucose monitoring on a continuous glucose monitoring schedule - Counseled on healthy diet and regular exercise - Discussed diabetic education issues of diabetes complications and monitoring required, hypoglycemic/hyperglycemic symptoms, and medication-specific side effects and monitoring - Follow up in 3 weeks, sooner should any other issues arise. - Placed consult to pharmacy PAP team for re-enrollment in [employer]; faxed patient signatures to team Follow Up: Next PCP visit: 03/09/24 Next PharmD visit: 02/06/24 Joanie Stone, PharmD, BCACP Primary Care Clinical Cementer Machine [employer]iner I spent a total of 65 minutes on the date of the service which included preparing to see the patient, qbqx-[id number]-noez patient care, completing clinical documentation, counseling and educating the patient/family/caregiver, ordering medications, tests, or procedures, and care coordination (not separately reported). Joanie Stone [facility] 01/16/2024 10:12 AM Signed Basaglar 20 units once daily every evening Humalog (lispro) 6 units three times daily before meals, if only having the protein shake take 4 units Referring Provider: LORI CAN [[id number]] Allergies As of Date: 01/16/2024 Noted Allergy Reaction LISINOPRIL 06/06/2011 3 - Cough Comments: Resolved after stopped medication REMERON (MIRTAZAPINE) 11/13/2021 14 - Other: See Comments Comments: Contributed to trouble with memory. Also caused anxiety and irritability SEASONAL ALLERGIES 06/26/2013 14 - Other: See Comments Comments: wheezing Date Reviewed: 01/16/2024 Reviewed by: Joanie Stone RPh - Fully Assessed Reason for Visit: Diabetes [34] Primary Visit Diagnosis:Type 2 diabetes mellitus without complication, with long-term current use of insulin (HCC) [E11.9, Z79.4] Order(s):Order #: [id number] Order #: [id number] CONSULT TO [facility] [[id number]] Order #: [id number]: 1 Prescriptions as of 01/16/2024 - insulin glargine (LANTUS SOLOSTAR U-100 INSULIN) 100 unit/mL (3 mL) Inject 20 Units subcutaneously as directed - insulin lispro (HUMALOG KWIKPEN INSULIN) 100 unit/mL Take 6 units prior to breakfast, 6 units prior to lunch, and 6 units prior to dinner. If replacing meal with a protein shake, take 4 units with shake. Gets from [facility] - atorvastatin (LIPITOR) 40 mg tablet Take 1 tablet by mouth once daily. - losartan (COZAAR) 50 mg tablet Take 1 tablet by mouth once daily. - metoprolol succinate ER (TOPROL XL) 100 mg Take 1 tablet by mouth once daily. - Blood-Glucose Meter,Continuous (FREESTYLE MARYANN 3 READER) [facility] Use to check blood sugar at least four (4) times daily. - Blood-Glucose Sensor (FREESTYLE MARYANN 3 SENSOR) [facility] Apply new sensor every fourteen (14) days to upper arm. - cycloSPORINE (RESTASIS) 0.05 % ophthalmic emulsion Use 1 Drop in both eyes two times a day. (Dr. Candelaria--started 2 weeks ago) - potassium chloride ER (KLOR-CON) 20 mEq tablet - clopidogrel (PLAVIX) 75 mg tablet Take 75 mg by mouth once daily. - vit A/vit C/vit E/zinc/copper (PRESERVISION AREDS ORAL) Take by mouth twice daily. - furosemide (LASIX) 40 mg tablet Take 40 mg by mouth once daily. - aspirin, enteric coated (ASPIRIN, ENTERIC COATED) 81 mg EC tablet Take 81 mg by mouth once daily. - qolytnyw-obo-vnhh-FA-lutein (CENTRUM SILVER WOMEN) 8 mg iron-400 mcg-300 mcg tab Take 1 tablet by mouth daily - Lancets lancets Test blood sugar(s) 3 times daily. Dx: Type 2 DM - Controlled E11.65 Insulin: Yes - nitroglycerin sublingual (NITROQUICK) 0.4 mg SL tablet Dissolve 0.4 mg under the tongue as needed. If no pain relief call 911. Dr. Hoyso. - vitamin b complex tab Take 1 tablet by mouth once daily. - Cholecalciferol, Vitamin D3, 2,000 unit Tab Take 1 capsule by mouth one time daily - albuterol HFA (PROAIR HFA) 90 mcg/actuation inhaler Inhale 2 Puffs as instructed every 4 hours as needed. Meds Comments as of 08/30/2010: Problem List As Of Date 01/16/2024 Noted Resolved MYALGIA AND MYOSITIS NOS [[id number]] Mixed hyperlipidemia [E78.2] Essential hypertension [I10] Class 1 obesity due to excess calories with ser* 02/13/2021 CERVICAL DISC DEGEN [M50.30] 01/23/2006 Type 2 diabetes mellitus, uncontrolled [GDP9258]01/23/2006 05/14/2022 Cervical radiculopathy [RJC3670] 01/23/2006 ESOPHAGEAL REFLUX [K21.9] 07/29/2006 RETINAL HEMORRHAGE [H35.60] 02/27/2007 BONE AND CARTILAGE DIS NOS [M89.9, M94.9] 05/27/2007 Acute gastritis without mention of hemorrhage [*04/04/2010 05/14/2022 Diaphragmatic hernia without mention of obstruc*04/04/2010 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] 05/22/2010 Sleep apnea [G47.30] 10/09/2011 Choledocholithiasis [K80.50] 04/07/2012 Chronic cholecystitis [K81.1] 04/07/2012 Gastroparesis [K31.84] 06/26/2013 Moderate aortic stenosis by prior echocardiogra*05/19/2018 Type 2 diabetes mellitus without complication, *11/13/2021 Secondary pulmonary arterial hypertension (HCC)*08/13/2022 Coronary artery disease involving port heiden harris*08/13/2022 Other instructions from your clinician: Basaglar 20 units once daily every evening Humalog (lispro) 6 units three times daily before meals, if only having the protein shake take 4 units Prescriptions ordered this encounter Disp Refills Start End LANTUS SOLOSTAR U-100 INSULIN 100 UN* 15 mL 1 01/16/2024 Cmt: Generic or brand: dispense product preferred by patient/insurance unless SAMMY flag is selected. Please contact Joanie Stone PharmD at [phone] with any questions regarding this script. Sig: Inject 20 Units subcutaneously as directed INSULIN LISPRO (U-100) 100 UNIT/ML S* 01/16/2024 Class: Med Update Sig: Take 6 units prior to breakfast, 6 units prior to lunch, and 6 units prior to dinner. If replacing meal with a protein shake, take 4 units with shake. Gets from [facility] Medications Discontinued During This Encounter Prescriptions - insulin lispro (HUMALOG KWIKPEN INSULIN) 100 unit/mL (Discontinued) Take 18 units prior to breakfast, 16 units prior to lunch, and 20 units prior to dinner. If replacing meal with a protein shake, take 10 units with shake. Gets from [facility] (Adjusts as needed based on how much will be eating) Encounter Status:Closed by JOANIE STONE on 01/16/24 PROGRESS Observed: 01/16/2024 9:30 AM Status: COMPLETED Source: [facility] ID: [id number] Author: JOANIE STONE [facility] Service: ? Author Type: Pharmacist Type: Progress Notes Filed: 01/16/2024 10:57 Note Text: Primary Care Pharmacy Visit CC (Reason for Consult): (E11.9, Z79.4) Type 2 diabetes mellitus without complication, with long-term current use of insulin (HCC) (primary encounter diagnosis) Goal(s): A1c <8% Last Collaborating Provider Visit: 12/31/[address] Juan José Cooper Phillip is a 83 year old female presenting for follow up visit in person. Patient consents to pharmacy collaborative practice agreement. Last Pharmacy Visit: previously followed with Rekha ([place] 08/2022 - dc'd back to PCP) HPI: Here with daughter, Nicole Was previously on slow-acting insulin in the past but stopped it and just continued the mealtime insulin Previously having issues getting different insulins from [employer], was enrolled in [employer] Was previously having low readings overnight Appetite is lower overall lately States BGs have been high and low, can't get the BGs low in the morning Takes lispro 15-20 minutes before meals Has 1 pen of Basaglar Last shipment from [employer] was from the spring Current DM Medications: Humalog 18-16-20 (10 units if protein shake replaces meal) - taking 16-18 units with meals, occasionally takes 14 units if having protein shake Previously Trialed DM Meds: Basaglar Metformin Jardiance - cost Invokana Diet Eating 3 meals/day Breakfast - breakfast sandwich - sausage egg and cheese or toasted cheese Lunch - not very hungry, glucerna shake and cookie and fruit Dinner - not very hungry either, frozen meals (stuffed pepper or lasagna) or grilled cheese or salad Snacks - blueberries, cookie (snickerdoodles) Drinking water throughout the day (60 oz/day) Exercise: Yes - walks dog 4-5x/day Caffeine: occasionally GLYCEMIC CONTROL: Glucometer present at visit: Yes - Maryann 3 reader Hypoglycemia: Yes CGM Data Past medical history reviewed. ALLERGIES Allergen Reactions Lisinopril Cough Resolved after stopped medication Remeron [Mirtazapin* Other: See Comments Contributed to trouble with memory. Also caused anxiety and irritability Seasonal Allergies Other: See Comments wheezing Current Outpatient Medications Medication Sig Dispense Refill atorvastatin (LIPITOR) 40 mg tablet Take 1 tablet by mouth once daily. 90 tablet 3 losartan (COZAAR) 50 mg tablet Take 1 tablet by mouth once daily. 90 tablet 3 metoprolol succinate ER (TOPROL XL) 100 mg Take 1 tablet by mouth once daily. 90 tablet 3 insulin lispro (HUMALOG KWIKPEN INSULIN) 100 unit/mL Take 10 units prior to breakfast, 10 units prior to lunch, and 10 units prior to dinner. If replacing meal with a protein shake, take 10 units with shake. Gets from [facility] (Patient taking differently: Take 18 units prior to breakfast, 16 units prior to lunch, and 20 units prior to dinner. If replacing meal with a protein shake, take 10 units with shake. Gets from [facility] (Adjusts as needed based on how much will be eating)) Blood-Glucose Meter,Continuous (FREESTYLE MARYANN 3 READER) [facility] Use to check blood sugar at least four (4) times daily. 1 Each 0 Blood-Glucose Sensor (FREESTYLE MARYANN 3 SENSOR) [facility] Apply new sensor every fourteen (14) days to upper arm. 6 Each 4 cycloSPORINE (RESTASIS) 0.05 % ophthalmic emulsion Use 1 Drop in both eyes two times a day. (Dr. Candelaria--started 2 weeks ago) potassium chloride ER (KLOR-CON) 20 mEq tablet clopidogrel (PLAVIX) 75 mg tablet Take 75 mg by mouth once daily. vit A/vit C/vit E/zinc/copper (PRESERVISION AREDS ORAL) Take by mouth twice daily. furosemide (LASIX) 40 mg tablet Take 40 mg by mouth once daily. aspirin, enteric coated (ASPIRIN, ENTERIC COATED) 81 mg EC tablet Take 81 mg by mouth once daily. bfpwgjqw-pzu-uewk-FA-lutein (CENTRUM SILVER WOMEN) 8 mg iron-400 mcg-300 mcg tab Take 1 tablet by mouth daily Lancets lancets Test blood sugar(s) 3 times daily. Dx: Type 2 DM - Controlled E11.65 Insulin: Yes 400 Each 3 nitroglycerin sublingual (NITROQUICK) 0.4 mg SL tablet Dissolve 0.4 mg under the tongue as needed. If no pain relief call 911. Dr. Hoyos. 0 vitamin b complex tab Take 1 tablet by mouth once daily. 0 Cholecalciferol, Vitamin D3, 2,000 unit Tab Take 1 capsule by mouth one time daily 0 albuterol HFA (PROAIR HFA) 90 mcg/actuation inhaler Inhale 2 Puffs as instructed every 4 hours as needed. 3 Inhaler 1 No current facility-administered medications for this visit. Pill bottles are not present. Adherence: denies missed doses. Rx coverage: Payor: [employer] MEDICARE / Plan: [employer] MEDICARE PPO / Product Type: PPO / Medications affordable? No - previously enrolled in [employer] for insulins PHARMACOTHERAPY PREVENTATIVE MEDS: On ANGELA/ARB: Yes On Statin: Yes On ASA: Yes EXAM: There were no vitals taken for this visit. Last 3 Encounter BP Readings: Date: BP: 12/31/2023 102/58 09/27/2023 121/66 02/14/2023 110/63 Wt: 71.1 kg (156 lb 12 oz) BMI: 30.37 kg/(m2) LABS: Lab Results Component Value Date HBA1C 7.0 12/31/2023 HBA1C 6.6 06/05/2023 HBA1C 6.6 02/11/2023 HBA1C 6.1 08/13/2022 HBA1C 7.6 05/13/2021 HBA1C 9.0 08/06/2020 HBA1C 8.1 04/03/2018 Glucose 111 06/05/2023 BUN 16 06/05/2023 Creatinine 0.70 06/05/2023 Sodium 140 06/05/2023 Potassium 4.4 06/05/2023 Chloride 101 06/05/2023 CO2 28 06/05/2023 Protein, Total 6.9 06/05/2023 Albumin 4.0 06/05/2023 Calcium 9.4 06/05/2023 Alkaline Phosphatase 167 06/05/2023 Bilirubin, Total 0.7 06/05/2023 AST 35 06/05/2023 ALT 59 06/05/2023 Lab Results Component Value Date CHOL 126 02/11/2023 CHOL 133 05/13/2021 LDL 49 02/11/2023 LDL 43 11/13/2021 LDL 56 05/13/2021 HDL 60 02/11/2023 HDL 58 05/13/2021 TG 87 02/11/2023 TG 95 05/13/2021 Albumin/Creat Ratio (mg/g) Date Value 02/11/2023 <20 eGFR-All Other Races (.) Date Value 05/13/2021 >60 Estimated Glomerular Filtration Rate (mL/min/1.73m?) Date Value 06/05/2023 87 ASSESSMENT/PLAN: 1. Type 2 diabetes mellitus without complication, with long-term current use of insulin ([facility]) - ICD9: 250.00, V58.67, ICD10: E11.9, Z79.4 - Controlled - Restart Basaglar 20 units once daily every evening - Decrease Humalog to 6 units three times daily before meals; 4 units if replacing meal with protein shake - Statin prescribed - atorvastatin - Blood glucose monitoring on a continuous glucose monitoring schedule - Counseled on healthy diet and regular exercise - Discussed diabetic education issues of diabetes complications and monitoring required, hypoglycemic/hyperglycemic symptoms, and medication-specific side effects and monitoring - Follow up in 3 weeks, sooner should any other issues arise. - Placed consult to pharmacy PAP team for re-enrollment in [employer]; faxed patient signatures to team Follow Up: Next PCP visit: 03/09/24 Next PharmD visit: 02/06/24 Joanie Stone PharmD, BCACP Primary Care Clinical Cementer Machine Joiner I spent a total of 65 minutes on the date of the service which included preparing to see the patient, kopm-[id number] patient care, completing clinical documentation, counseling and educating the patient/family/caregiver, ordering medications, tests, or procedures, and care coordination (not separately reported). NICOLASA Observed: 01/16/2024 12:00 AM Status: COMPLETED Source: [facility] Patient Outreach (FAYEPHARMKAVITHA C) MAGNOLIA FISHER ([id number]) 1940 F Date Time Provider Department 01/16/24 JOANIE STONE During your visit today, we recorded the following information about you: Alicia (Population DiagnosticsMichelle Valle 02/11/2024 2:15 PM Signed This patient has been referred by pharmacy for surveillance officer patient assistance program application consultant. STATUS OF APPLICATION: Can be viewed under the encounter Additional Documentation > SmartForms: [facility] PATIENT ASSISTANCE Completed forms sent to providers for signatures and/or to surveillance officer will be available under Scanned Documents. The finalized form can be found under PAP_Medication Name_Complete. PAP Brim Stretcher Team will submit and track progress on the completed PAP application. Please do NOT fax to surveillance officer unless directed by the PAP Brim Stretcher Team. Please see SmartForm described above for specifics. Please DO NOT close this encounter. Sent to patient: Pharmacist obtained signature 01/16/24 Sent to prescriber: Faxed to prescriber to be signed 01/16/24 Sent to surveillance officer: Faxed to [facility] 01/24/24 Alicia ([facility])Michelle 02/11/2024 2:15 PM Signed Patient has been approved with [facility] for medication(s) Humalog and Basaglar through 03/31/2025. Patient ID is : [id number] Called and confirmed Basaglar approved through 03/31/2025 Below is fax sent to PAP Team alerting of patient approval for Humalog in program through 03/31/2025 . PAP Team will reach out via [employer] to let patient know of approved status. Allergies As of Date: 01/16/2024 Noted Allergy Reaction LISINOPRIL 06/06/2011 3 - Cough Comments: Resolved after stopped medication REMERON (MIRTAZAPINE) 11/13/2021 14 - Other: See Comments Comments: Contributed to trouble with memory. Also caused anxiety and irritability SEASONAL ALLERGIES 06/26/2013 14 - Other: See Comments Comments: wheezing Date Reviewed: 01/16/2024 Reviewed by: Joanie Stone RPh - Fully Assessed Reason for Visit: Patient Assistiance [Other] Cmt: Basaglar Kwikpen units-100 Humalog Kwikpen units-100 Prescriptions as of 02/11/2024 - insulin glargine (LANTUS SOLOSTAR U-100 INSULIN) 100 unit/mL (3 mL) Inject 20 Units subcutaneously daily at bedtime. - insulin lispro (HUMALOG KWIKPEN INSULIN) 100 unit/mL Take 6 units prior to breakfast, 6 units prior to lunch, and 6 units prior to dinner. If replacing meal with a protein shake, take 4 units with shake. Gets from [facility] - atorvastatin (LIPITOR) 40 mg tablet Take 1 tablet by mouth once daily. - losartan (COZAAR) 50 mg tablet Take 1 tablet by mouth once daily. - metoprolol succinate ER (TOPROL XL) 100 mg Take 1 tablet by mouth once daily. - Blood-Glucose Meter,Continuous (FREESTYLE MARYANN 3 READER) [facility] Use to check blood sugar at least four (4) times daily. - Blood-Glucose Sensor (FREESTYLE MARYANN 3 SENSOR) [facility] Apply new sensor every fourteen (14) days to upper arm. - cycloSPORINE (RESTASIS) 0.05 % ophthalmic emulsion Use 1 Drop in both eyes two times a day. (Dr. Candelaria--started 2 weeks ago) - potassium chloride ER (KLOR-CON) 20 mEq tablet - clopidogrel (PLAVIX) 75 mg tablet Take 75 mg by mouth once daily. - vit A/vit C/vit E/zinc/copper (PRESERVISION AREDS ORAL) Take by mouth twice daily. - furosemide (LASIX) 40 mg tablet Take 40 mg by mouth once daily. - aspirin, enteric coated (ASPIRIN, ENTERIC COATED) 81 mg EC tablet Take 81 mg by mouth once daily. - hleljxqx-tep-nwjb-FA-lutein (CENTRUM SILVER WOMEN) 8 mg iron-400 mcg-300 mcg tab Take 1 tablet by mouth daily - Lancets lancets Test blood sugar(s) 3 times daily. Dx: Type 2 DM - Controlled E11.65 Insulin: Yes - nitroglycerin sublingual (NITROQUICK) 0.4 mg SL tablet Dissolve 0.4 mg under the tongue as needed. If no pain relief call 911. Dr. Hoyos. - vitamin b complex tab Take 1 tablet by mouth once daily. - Cholecalciferol, Vitamin D3, 2,000 unit Tab Take 1 capsule by mouth one time daily - albuterol HFA (PROAIR HFA) 90 mcg/actuation inhaler Inhale 2 Puffs as instructed every 4 hours as needed. Meds Comments as of 08/30/2010: Problem List As Of Date 01/16/2024 Noted Resolved MYALGIA AND MYOSITIS NOS [[id number]] Mixed hyperlipidemia [E78.2] Essential hypertension [I10] Class 1 obesity due to excess calories with ser* 02/13/2021 CERVICAL DISC DEGEN [M50.30] 01/23/2006 Type 2 diabetes mellitus, uncontrolled [[id number]]01/23/2006 05/14/2022 Cervical radiculopathy [[id number]] 01/23/2006 ESOPHAGEAL REFLUX [K21.9] 07/29/2006 RETINAL HEMORRHAGE [H35.60] 02/27/2007 BONE AND CARTILAGE DIS NOS [M89.9, M94.9] 05/27/2007 Acute gastritis without mention of hemorrhage [*04/04/2010 05/14/2022 Diaphragmatic hernia without mention of obstruc*04/04/2010 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] 05/22/2010 Sleep apnea [G47.30] 10/09/2011 Choledocholithiasis [K80.50] 04/07/2012 Chronic cholecystitis [K81.1] 04/07/2012 Gastroparesis [K31.84] 06/26/2013 Moderate aortic stenosis by prior echocardiogra*05/19/2018 Type 2 diabetes mellitus without complication, *11/13/2021 Secondary pulmonary arterial hypertension (HCC)*08/13/2022 Coronary artery disease involving port heiden harris*08/13/2022 Encounter Status:Closed by ALICIA (CUSTOMER SUPPORT ASSISTANT)MICHELLE on 02/11/24 PROGRESS Observed: 12/31/2023 8:14 AM Status: COMPLETED Source: [facility] ID: [id number] Author: LORI CAN MD Service: ? Author Type: Physician Type: Progress Notes Filed: 12/31/2023 19:52 Note Text: This note was created using CooCoo. Subjective Magnolia Fisher is a 83 year old female. Patient presents with: Established Patient: Follow up procedure in August 2023 SUBJECTIVE: Magnolia Fisher is a 83 year old year old lady here today for follow up appointment for review of medical conditions. The patient is a 83-year-old female with a history of DM, HLD, and HTN, presenting for follow-up after a recent TAVR procedure and to discuss recent changes in her insulin regimen. The patient underwent a TAVR procedure on 09/11/2023 at [facility], where an Evolute FX transcatheter bioprosthetic aortic valve (26 mm) was implanted. Her local soft mud molder is Dr. Hoyos. She reports discontinuing her long-acting insulin around July or August due to episodes of hypoglycemia, with blood glucose levels reportedly dropping to the 50s and 60s. She notes that her prescription instructions for the long-acting insulin were inconsistent, initially advising evening administration and later changing to early day, which she found confusing. She is currently not using long-acting insulin and reports her blood glucose levels are averaging around 120 mg/dL, with a recent 7-day average of 170 mg/dL. She notes the highest readings occur after breakfast, reaching up to 213 mg/dL, but levels stabilize by lunchtime. She denies experiencing any recent hypoglycemic episodes. Her current insulin regimen includes 18 units of short-acting insulin before breakfast, 16 units before lunch, and 20 units before dinner. She reports a decreased appetite and reduced snacking, which she believes has helped maintain her blood glucose levels. She uses a continuous glucose monitor and occasionally checks her blood glucose levels with an Accu-Chek Lenore fingerstick monitor. She has glucose tablets at home for hypoglycemic episodes and uses peanut butter candies as a secondary measure. She expresses concern about her eligibility for the [employer] program, which has been providing her insulin. She has not received renewal forms and is uncertain about her continued eligibility. She also reports vision issues, stating she doesn't see well and had difficulty driving recently. She plans to follow up with her electronic security specialist. She denies feelings of anxiety or depression. PAST MEDICAL HISTORY Diagnosis Date Acute gastritis without mention of hemorrhage Aortic stenosis, mild 05/19/2018 Echocardiogram at [facility] 04/16/2018 Asthma Coronary atherosclerosis of unspecified type of vessel, port heiden or graft Depression Diaphragmatic hernia without mention of obstruction or gangrene Esophageal reflux 07/29/2006 Hypersomnia with sleep apnea, unspecified Irritable bowel syndrome Localized osteoarthrosis not specified whether primary or secondary, unspecified site Myalgia and myositis, unspecified Obesity, unspecified Obstructive sleep apnea Other and unspecified hyperlipidemia Other specified gastritis Retinal hemorrhage 02/27/2007 Dr. Yu Type II or unspecified type diabetes mellitus without mention of complication, uncontrolled Unspecified essential hypertension Current Outpatient Medications Medication Sig atorvastatin (LIPITOR) 40 mg tablet Take 1 tablet by mouth once daily. losartan (COZAAR) 50 mg tablet Take 1 tablet by mouth once daily. metoprolol succinate ER (TOPROL XL) 100 mg Take 1 tablet by mouth once daily. insulin lispro (HUMALOG KWIKPEN INSULIN) 100 unit/mL Take 10 units prior to breakfast, 10 units prior to lunch, and 10 units prior to dinner. If replacing meal with a protein shake, take 10 units with shake. Gets from [facility] (Patient taking differently: Take 18 units prior to breakfast, 16 units prior to lunch, and 20 units prior to dinner. If replacing meal with a protein shake, take 10 units with shake. Gets from [facility] (Adjusts as needed based on how much will be eating)) Blood-Glucose Meter,Continuous (FREESTYLE MARYANN 3 READER) [facility] Use to check blood sugar at least four (4) times daily. Blood-Glucose Sensor (FREESTYLE MARYANN 3 SENSOR) [facility] Apply new sensor every fourteen (14) days to upper arm. cycloSPORINE (RESTASIS) 0.05 % ophthalmic emulsion Use 1 Drop in both eyes two times a day. (Dr. Candelaria--started 2 weeks ago) potassium chloride ER (KLOR-CON) 20 mEq tablet clopidogrel (PLAVIX) 75 mg tablet Take 75 mg by mouth once daily. vit A/vit C/vit E/zinc/copper (PRESERVISION AREDS ORAL) Take by mouth twice daily. furosemide (LASIX) 40 mg tablet Take 40 mg by mouth once daily. aspirin, enteric coated (ASPIRIN, ENTERIC COATED) 81 mg EC tablet Take 81 mg by mouth once daily. blood sugar diagnostic (ACCU-CHEK LENORE PLUS TEST STRP) test strip Test blood sugar(s) 3 times daily. Dx: Type 2 DM - Uncontrolled E11.65 Insulin: Yes jruttkjt-bgm-gtav-FA-lutein (CENTRUM SILVER WOMEN) 8 mg iron-400 mcg-300 mcg tab Take 1 tablet by mouth daily Lancets lancets Test blood sugar(s) 3 times daily. Dx: Type 2 DM - Controlled . Insulin: Yes nitroglycerin sublingual (NITROQUICK) 0.4 mg SL tablet Dissolve 0.4 mg under the tongue as needed. If no pain relief call 911. Dr. Hoyos. vitamin b complex tab Take 1 tablet by mouth once daily. Cholecalciferol, Vitamin D3, 2,000 unit Tab Take 1 capsule by mouth one time daily albuterol HFA (PROAIR HFA) 90 mcg/actuation inhaler Inhale 2 Puffs as instructed every 4 hours as needed. No current facility-administered medications for this visit. Review of Systems Objective BP 102/58 Pulse (!) 56 Temp 36.1 ?C (97 ?F) Resp 16 Wt 71.1 kg (156 lb 12 oz) SpO2 97% BMI 30.37 kg/m? Physical Exam Constitutional: Appearance: Normal appearance. HENT: Head: Normocephalic. Eyes: Conjunctiva/sclera: Conjunctivae normal. Cardiovascular: Rate and Rhythm: Normal rate and regular rhythm. Heart sounds: Normal heart sounds. Pulmonary: Effort: Pulmonary effort is normal. Breath sounds: Normal breath sounds. Musculoskeletal: Right lower leg: Edema (1+ ankle) present. Left lower leg: Edema (1+ ankle) present. Skin: General: Skin is warm and dry. Neurological: General: No focal deficit present. Mental Status: She is alert and oriented to person, place, and time. Psychiatric: Mood and Affect: Mood normal. Behavior: Behavior normal. Thought Content: Thought content normal. Judgment: Judgment normal. Latest Ref Rng 02/11/2023 06/05/2023 Protein, Total 6.3 - 8.0 g/dL 6.5 6.9 Albumin 3.9 - 4.9 g/dL 4.2 4.0 Calcium 8.5 - 10.2 mg/dL 9.4 9.4 Bilirubin, Total 0.2 - 1.3 mg/dL 0.9 0.7 Alkaline Phosphatase 34 - 123 U/L 136 (H) 167 (H) AST 13 - 35 U/L 26 35 ALT 7 - 38 U/L 19 59 (H) Glucose 74 - 99 mg/dL 170 (H) 111 (H) BUN 7 - 21 mg/dL 17 16 Creatinine 0.58 - 0.96 mg/dL 0.77 0.70 Sodium 136 - 144 mmol/L 142 140 Potassium 3.7 - 5.1 mmol/L 4.8 4.4 Chloride 97 - 105 mmol/L 103 101 CO2 22 - 30 mmol/L 28 28 Anion Gap 9 - 18 mmol/L 11 11 eGFR >=60 mL/min/1.73m? 78 87 WBC 3.70 - 11.00 k/uL 9.20 RBC 3.90 - 5.20 m/uL 4.14 Hemoglobin 11.5 - 15.5 g/dL 13.8 Hematocrit 36.0 - 46.0 % 42.9 MCV 80.0 - 100.0 fL 103.6 (H) MCH 26.0 - 34.0 pg 33.3 MCHC 30.5 - 36.0 g/dL 32.2 RDW-CV 11.5 - 15.0 % 12.9 Platelet Count 150 - 400 k/uL 270 MPV 9.0 - 12.7 fL 11.6 Absolute nRBC <0.01 k/uL <0.01 Cholesterol, Total <200 mg/dL 126 Triglyceride <150 mg/dL 87 HDL Cholesterol >39 mg/dL 60 Non HDL Cholesterol <130 mg/dL 66 Fasting Time hrs 14 VLDL Cholesterol <30 mg/dL 17 TC:HDL Ratio <5.10 2.10 LDL Cholesterol <100 mg/dL 49 LDL:HDL Ratio <2.54 0.82 Creatinine, Ur Random (UCRR) 20.0 - 300.0 mg/dL 59.2 Albumin, Urine Random mg/L <12.0 Albumin/Creat Ratio <30 mg/g <20 Hemoglobin A1C 4.3 - 5.6 % 6.6 (H) 6.6 (H) Estimated Average Glucose mg/dL 143 143 Vitamin B12 232 - 1,245 pg/mL 746 Folate >4.7 ng/mL >20.0 Vitamin D 25 Hydroxy 31.0 - 80.0 ng/mL 32.4 Legend: (H) High Hemoglobin A1C (%) Date Value 06/05/2023 6.6 02/11/2023 6.6 08/13/2022 6.1 11/13/2021 7.1 05/13/2021 7.6 08/06/2020 9.0 04/03/2018 8.1 12/20/2017 8.4 11/12/2017 9.2 Latest Ref Rng 10/03/2012 09/30/2013 12/30/2013 06/05/2023 Vitamin D 25 Hydroxy 31.0 - 80.0 ng/mL 29.3 (L) 38.2 46.4 32.4 Legend: (L) Low - Continuous Glucose Monitoring (CGM) Readings: - Past 7 days: Average 170 mg/dL, highest 213 mg/dL after breakfast. - Past 14 days: Average 166 mg/dL, highest after breakfast. - Past 90 days: Average 157 mg/dL, highest 190s after breakfast. Assessment and Plan # Type 2 diabetes mellitus without complication, with long-term current use of insulin ([facility]) (E11.9) - Discontinued long-acting insulin in August due to hypoglycemic episodes with blood glucose levels dropping to 50s-60s. - Current blood glucose averages: 170 over the past 7 days, 166 over the past 14 days, and 157 over the past 90 days. - Administering short-acting insulin: 18 units with breakfast, 16 units with lunch, and 20 units with dinner. - Educated on dietary modifications to manage postprandial hyperglycemia, particularly after breakfast. - Discussed management of hypoglycemia: advised to use 3-4 glucose tablets (15-20 grams of carbohydrates) for low blood sugar episodes, followed by re-evaluation in 15 minutes. - Ordered bnpph-cu-olwn hemoglobin A1c test today. - Scheduled follow-up with Rekha for further insulin management and potential adjustments. # Essential hypertension (I10) - Blood pressure managed with Losartan 50 mg daily and Metoprolol XL 100 mg daily. - Recent refill of Losartan on the . 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 Hoyos; recent labs in October showed no anemia. - No current angina; has nitroglycerin on hand but not needed. # Mixed hyperlipidemia (E78.2) - Managed with Lipitor; last refill in November. - Ordered lipid panel for March appointment. # Vitamin D deficiency (E55.9) - Taking Vitamin D 2000 units daily. - Ordered Vitamin D level check for March appointment. # Encounter for immunization (Z23) - Administered COVID-19 vaccine today. - Discussed availability of RSV and shingles vaccines at the pharmacy. # Encounter for screening examination for other mental health and behavioral disorders (Z13.39) - Negative for anxiety and excessive worrying. I spent a total of 38 minutes on the date of the service which included preparing to see the patient, [id number] patient care, completing clinical documentation, obtaining and/or reviewing separately obtained history, performing a medically appropriate examination, counseling and educating the patient/family/caregiver, ordering medications, tests, or procedures, independently interpreting results (not separately reported), and communicating results to the patient/family/caregiver. Lori Can MD CNOV Observed: 12/31/2023 8:00 AM Status: COMPLETED Source: [facility] Office Visit (INTMWS) MAGNOLIA FISHER ([id number]) 1940 F Date Time Provider Department 10/1/24 8:00 AM LORI CAN INTMWS During your visit today, we recorded the following information about you: Temperature Pulse Respiration Blood pressure 97 degrees 56/minute 16/minute 102/58 Weight 71.1 kg Lori Can MD 12/31/2023 7:52 PM Signed This note was created using CooCoo. Subjective Magnolia Fisher is a 83 year old female. Patient presents with: Established Patient: Follow up procedure in August 2023 SUBJECTIVE: Magnolia Fisher is a 83 year old year old lady here today for follow up appointment for review of medical conditions. The patient is a 83-year-old female with a history of DM, HLD, and HTN, presenting for follow-up after a recent TAVR procedure and to discuss recent changes in her insulin regimen. The patient underwent a TAVR procedure on 09/11/2023 at [facility], where an Evolute FX transcatheter bioprosthetic aortic valve (26 mm) was implanted. Her local soft mud molder is Dr. Hoyos. She reports discontinuing her long-acting insulin around July or August due to episodes of hypoglycemia, with blood glucose levels reportedly dropping to the 50s and 60s. She notes that her prescription instructions for the long-acting insulin were inconsistent, initially advising evening administration and later changing to early day, which she found confusing. She is currently not using long-acting insulin and reports her blood glucose levels are averaging around 120 mg/dL, with a recent 7-day average of 170 mg/dL. She notes the highest readings occur after breakfast, reaching up to 213 mg/dL, but levels stabilize by lunchtime. She denies experiencing any recent hypoglycemic episodes. Her current insulin regimen includes 18 units of short-acting insulin before breakfast, 16 units before lunch, and 20 units before dinner. She reports a decreased appetite and reduced snacking, which she believes has helped maintain her blood glucose levels. She uses a continuous glucose monitor and occasionally checks her blood glucose levels with an Accu-Chek Lenore fingerstick monitor. She has glucose tablets at home for hypoglycemic episodes and uses peanut butter candies as a secondary measure. She expresses concern about her eligibility for the [facility] program, which has been providing her insulin. She has not received renewal forms and is uncertain about her continued eligibility. She also reports vision issues, stating she doesn't see well and had difficulty driving recently. She plans to follow up with her electronic security specialist. She denies feelings of anxiety or depression. PAST MEDICAL HISTORY Diagnosis Date Acute gastritis without mention of hemorrhage Aortic stenosis, mild 05/19/2018 Echocardiogram at [facility] 04/16/2018 Asthma Coronary atherosclerosis of unspecified type of vessel, port heiden or graft Depression Diaphragmatic hernia without mention of obstruction or gangrene Esophageal reflux 07/29/2006 Hypersomnia with sleep apnea, unspecified Irritable bowel syndrome Localized osteoarthrosis not specified whether primary or secondary, unspecified site Myalgia and myositis, unspecified Obesity, unspecified Obstructive sleep apnea Other and unspecified hyperlipidemia Other specified gastritis Retinal hemorrhage 02/27/2007 Dr. Yu Type II or unspecified type diabetes mellitus without mention of complication, uncontrolled Unspecified essential hypertension Current Outpatient Medications Medication Sig atorvastatin (LIPITOR) 40 mg tablet Take 1 tablet by mouth once daily. losartan (COZAAR) 50 mg tablet Take 1 tablet by mouth once daily. metoprolol succinate ER (TOPROL XL) 100 mg Take 1 tablet by mouth once daily. insulin lispro (HUMALOG KWIKPEN INSULIN) 100 unit/mL Take 10 units prior to breakfast, 10 units prior to lunch, and 10 units prior to dinner. If replacing meal with a protein shake, take 10 units with shake. Gets from [facility] (Patient taking differently: Take 18 units prior to breakfast, 16 units prior to lunch, and 20 units prior to dinner. If replacing meal with a protein shake, take 10 units with shake. Gets from [facility] (Adjusts as needed based on how much will be eating)) Blood-Glucose Meter,Continuous (FREESTYLE MARYANN 3 READER) [facility] Use to check blood sugar at least four (4) times daily. Blood-Glucose Sensor (FREESTYLE MARYANN 3 SENSOR) maynor Apply new sensor every fourteen (14) days to upper arm. cycloSPORINE (RESTASIS) 0.05 % ophthalmic emulsion Use 1 Drop in both eyes two times a day. (Dr. Candelaria--started 2 weeks ago) potassium chloride ER (KLOR-CON) 20 mEq tablet clopidogrel (PLAVIX) 75 mg tablet Take 75 mg by mouth once daily. vit A/vit C/vit E/zinc/copper (PRESERVISION AREDS ORAL) Take by mouth twice daily. furosemide (LASIX) 40 mg tablet Take 40 mg by mouth once daily. aspirin, enteric coated (ASPIRIN, ENTERIC COATED) 81 mg EC tablet Take 81 mg by mouth once daily. blood sugar diagnostic (ACCU-CHEK LENORE PLUS TEST STRP) test strip Test blood sugar(s) 3 times daily. Dx: Type 2 DM - Uncontrolled E11.65 Insulin: Yes ozozenme-ays-znjv-FA-lutein (CENTRUM SILVER WOMEN) 8 mg iron-400 mcg-300 mcg tab Take 1 tablet by mouth daily Lancets lancets Test blood sugar(s) 3 times daily. Dx: Type 2 DM - Controlled E11.65 Insulin: Yes nitroglycerin sublingual (NITROQUICK) 0.4 mg SL tablet Dissolve 0.4 mg under the tongue as needed. If no pain relief call 911. Dr. Hoyos. vitamin b complex tab Take 1 tablet by mouth once daily. Cholecalciferol, Vitamin D3, 2,000 unit Tab Take 1 capsule by mouth one time daily albuterol HFA (PROAIR HFA) 90 mcg/actuation inhaler Inhale 2 Puffs as instructed every 4 hours as needed. No current facility-administered medications for this visit. Review of Systems Objective BP 102/58 Pulse (!) 56 Temp 36.1 ?C (97 ?F) Resp 16 Wt 71.1 kg (156 lb 12 oz) SpO2 97% BMI 30.37 kg/m? Physical Exam Constitutional: Appearance: Normal appearance. HENT: Head: Normocephalic. Eyes: Conjunctiva/sclera: Conjunctivae normal. Cardiovascular: Rate and Rhythm: Normal rate and regular rhythm. Heart sounds: Normal heart sounds. Pulmonary: Effort: Pulmonary effort is normal. Breath sounds: Normal breath sounds. Musculoskeletal: Right lower leg: Edema (1+ ankle) present. Left lower leg: Edema (1+ ankle) present. Skin: General: Skin is warm and dry. Neurological: General: No focal deficit present. Mental Status: She is alert and oriented to person, place, and time. Psychiatric: Mood and Affect: Mood normal. Behavior: Behavior normal. Thought Content: Thought content normal. Judgment: Judgment normal. Latest Ref Rng 02/11/2023 06/05/2023 Protein, Total 6.3 - 8.0 g/dL 6.5 6.9 Albumin 3.9 - 4.9 g/dL 4.2 4.0 Calcium 8.5 - 10.2 mg/dL 9.4 9.4 Bilirubin, Total 0.2 - 1.3 mg/dL 0.9 0.7 Alkaline Phosphatase 34 - 123 U/L 136 (H) 167 (H) AST 13 - 35 U/L 26 35 ALT 7 - 38 U/L 19 59 (H) Glucose 74 - 99 mg/dL 170 (H) 111 (H) BUN 7 - 21 mg/dL 17 16 Creatinine 0.58 - 0.96 mg/dL 0.77 0.70 Sodium 136 - 144 mmol/L 142 140 Potassium 3.7 - 5.1 mmol/L 4.8 4.4 Chloride 97 - 105 mmol/L 103 101 CO2 22 - 30 mmol/L 28 28 Anion Gap 9 - 18 mmol/L 11 11 eGFR >=60 mL/min/1.73m? 78 87 WBC 3.70 - 11.00 k/uL 9.20 RBC 3.90 - 5.20 m/uL 4.14 Hemoglobin 11.5 - 15.5 g/dL 13.8 Hematocrit 36.0 - 46.0 % 42.9 MCV 80.0 - 100.0 fL 103.6 (H) MCH 26.0 - 34.0 pg 33.3 MCHC 30.5 - 36.0 g/dL 32.2 RDW-CV 11.5 - 15.0 % 12.9 Platelet Count 150 - 400 k/uL 270 MPV 9.0 - 12.7 fL 11.6 Absolute nRBC <0.01 k/uL <0.01 Cholesterol, Total <200 mg/dL 126 Triglyceride <150 mg/dL 87 HDL Cholesterol >39 mg/dL 60 Non HDL Cholesterol <130 mg/dL 66 Fasting Time hrs 14 VLDL Cholesterol <30 mg/dL 17 TC:HDL Ratio <5.10 2.10 LDL Cholesterol <100 mg/dL 49 LDL:HDL Ratio <2.54 0.82 Creatinine, Ur Random (UCRR) 20.0 - 300.0 mg/dL 59.2 Albumin, Urine Random mg/L <12.0 Albumin/Creat Ratio <30 mg/g <20 Hemoglobin A1C 4.3 - 5.6 % 6.6 (H) 6.6 (H) Estimated Average Glucose mg/dL 143 143 Vitamin B12 232 - 1,245 pg/mL 746 Folate >4.7 ng/mL >20.0 Vitamin D 25 Hydroxy 31.0 - 80.0 ng/mL 32.4 Legend: (H) High Hemoglobin A1C (%) Date Value 06/05/2023 6.6 02/11/2023 6.6 08/13/2022 6.1 11/13/2021 7.1 05/13/2021 7.6 08/06/2020 9.0 04/03/2018 8.1 12/20/2017 8.4 11/12/2017 9.2 Latest Ref Rng 10/03/2012 09/30/2013 12/30/2013 06/05/2023 Vitamin D 25 Hydroxy 31.0 - 80.0 ng/mL 29.3 (L) 38.2 46.4 32.4 Legend: (L) Low - Continuous Glucose Monitoring (CGM) Readings: - Past 7 days: Average 170 mg/dL, highest 213 mg/dL after breakfast. - Past 14 days: Average 166 mg/dL, highest after breakfast. - Past 90 days: Average 157 mg/dL, highest 190s after breakfast. Assessment and Plan # Type 2 diabetes mellitus without complication, with long-term current use of insulin (HCC) (E11.9) - Discontinued long-acting insulin in August due to hypoglycemic episodes with blood glucose levels dropping to 50s-60s. - Current blood glucose averages: 170 over the past 7 days, 166 over the past 14 days, and 157 over the past 90 days. - Administering short-acting insulin: 18 units with breakfast, 16 units with lunch, and 20 units with dinner. - Educated on dietary modifications to manage postprandial hyperglycemia, particularly after breakfast. - Discussed management of hypoglycemia: advised to use 3-4 glucose tablets (15-20 grams of carbohydrates) for low blood sugar episodes, followed by re-evaluation in 15 minutes. - Ordered oyxhc-jn-snzt hemoglobin A1c test today. - Scheduled follow-up with Rekha for further insulin management and potential adjustments. # Essential hypertension (I10) - Blood pressure managed with Losartan 50 mg daily and Metoprolol XL 100 mg daily. - Recent refill of Losartan on the . 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 Hoyos; recent labs in October showed no anemia. - No current angina; has nitroglycerin on hand but not needed. # Mixed hyperlipidemia (E78.2) - Managed with Lipitor; last refill in November. - Ordered lipid panel for March appointment. # Vitamin D deficiency (E55.9) - Taking Vitamin D 2000 units daily. - Ordered Vitamin D level check for March appointment. # Encounter for immunization (Z23) - Administered COVID-19 vaccine today. - Discussed availability of RSV and shingles vaccines at the pharmacy. # Encounter for screening examination for other mental health and behavioral disorders (Z13.39) - Negative for anxiety and excessive worrying. I spent a total of 38 minutes on the date of the service which included preparing to see the patient, enlx-rm-aeer patient care, completing clinical documentation, obtaining and/or reviewing separately obtained history, performing a medically appropriate examination, counseling and educating the patient/family/caregiver, ordering medications, tests, or procedures, independently interpreting results (not separately reported), and communicating results to the patient/family/caregiver. MD Juan José Hunt Liza D, MD 12/31/2023 9:05 AM Signed -Continue monitoring your blood sugar levels using your CGM and make adjustments to your insulin doses as needed based on the readings. - If your blood sugar goes high (above 250-300), drink water to help flush the sugar through. If it remains high, consider what you ate that may have caused the spike and try to avoid those foods in the future. - If your blood sugar goes low, take 3-4 glucose tablets (or 15-20 grams of carbs) to bring it back up. If it's still low after 15 minutes, take more. If you can't get it to stay up, call 911. - Continue taking your other medications as prescribed. - Consider getting the RSV and shingles vaccines at your pharmacy at your convenience. - You will have a follow-up appointment in March to update your cholesterol, blood counts, and metabolic panel. A urine test will also be done to make sure you're not spilling protein in your kidneys. Allergies As of Date: 12/31/2023 Noted Allergy Reaction LISINOPRIL 06/06/2011 3 - Cough Comments: Resolved after stopped medication REMERON (MIRTAZAPINE) 11/13/2021 14 - Other: See Comments Comments: Contributed to trouble with memory. Also caused anxiety and irritability SEASONAL ALLERGIES 06/26/2013 14 - Other: See Comments Comments: wheezing Date Reviewed: 12/31/2023 Reviewed by: Jackie Sierra LPN - Fully Assessed Reason for Visit: Established Patient [175] Cmt: Follow up procedure in August 2023 Primary Visit Diagnosis:Type 2 diabetes mellitus without complication, with long-term current use of insulin (HCC) [E11.9, Z79.4] Other Visit Diagnoses:Essential hypertension [I10] S/P TAVR (transcatheter aortic valve replacement) [Z95.2] Mixed hyperlipidemia [E78.2] Vitamin D deficiency [E55.9] Encounter for immunization [Z23] Encounter for screening examination for other mental health and behavioral disorders [Z13.39] Order(s):INFLUENZA VACCINE, PRSV FREE, AGE 65+ YR, HIGH DOSE, TRIVALENT (FLUZONE HIGH-DOSE) [01324DRU] Order #: [id number] CONSULT TO PHARMACY [895287] Order #: [id number]: 1 HEMOGLOBIN A1C (POC) [1616244] Order #: [id number] VITAMIN D 25 HYDROXY [SQVITD] Order #: [id number] FUTURE COMPREHENSIVE METABOLIC PANEL [SQCMP] Order #: [id number] FUTURE COMPLETE BLOOD COUNT [SQCBC] Order #: [id number] FUTURE LIPID PANEL BASIC [SQLIPB] Order #: [id number] FUTURE Body [facility] COVID-19 VACCINE AGE 12+ YR (COMIRNATY) [00759KSJ] Order #: [id number] ANXIETY SCREENING [6994955] Order #: [id number]: 1 ALBUMIN/CREATININE RATIO, URINE [SQUACR] Order #: [id number] FUTURE HEMOGLOBIN A1C (POC) [7776674] Order #: [id number]. #:[id number] Prescriptions as of 12/31/2023 - atorvastatin (LIPITOR) 40 mg tablet Take 1 tablet by mouth once daily. - losartan (COZAAR) 50 mg tablet Take 1 tablet by mouth once daily. - metoprolol succinate ER (TOPROL XL) 100 mg Take 1 tablet by mouth once daily. - insulin lispro (HUMALOG KWIKPEN INSULIN) 100 unit/mL Take 10 units prior to breakfast, 10 units prior to lunch, and 10 units prior to dinner. If replacing meal with a protein shake, take 10 units with shake. Gets from [facility] - Blood-Glucose Meter,Continuous (FREESTYLE MARYANN 3 READER) [facility] Use to check blood sugar at least four (4) times daily. - Blood-Glucose Sensor (FREESTYLE MARYANN 3 SENSOR) [facility]nor Apply new sensor every fourteen (14) days to upper arm. - cycloSPORINE (RESTASIS) 0.05 % ophthalmic emulsion Use 1 Drop in both eyes two times a day. (Dr. Candelaria--started 2 weeks ago) - potassium chloride ER (KLOR-CON) 20 mEq tablet - clopidogrel (PLAVIX) 75 mg tablet Take 75 mg by mouth once daily. - vit A/vit C/vit E/zinc/copper (PRESERVISION AREDS ORAL) Take by mouth twice daily. - furosemide (LASIX) 40 mg tablet Take 40 mg by mouth once daily. - aspirin, enteric coated (ASPIRIN, ENTERIC COATED) 81 mg EC tablet Take 81 mg by mouth once daily. - hjsyvlze-mcd-iopp-FA-lutein (CENTRUM SILVER WOMEN) 8 mg iron-400 mcg-300 mcg tab Take 1 tablet by mouth daily - Lancets lancets Test blood sugar(s) 3 times daily. Dx: Type 2 DM - Controlled E11.65 Insulin: Yes - nitroglycerin sublingual (NITROQUICK) 0.4 mg SL tablet Dissolve 0.4 mg under the tongue as needed. If no pain relief call 911. Dr. Hoyos. - vitamin b complex tab Take 1 tablet by mouth once daily. - Cholecalciferol, Vitamin D3, 2,000 unit Tab Take 1 capsule by mouth one time daily - albuterol HFA (PROAIR HFA) 90 mcg/actuation inhaler Inhale 2 Puffs as instructed every 4 hours as needed. Meds Comments as of 08/30/2010: Medication notes this encounter INSULIN GLARGINE (U-100) 100 UNIT/ML (3 ML) SUBCUTANEOUS PEN >> Lori Can MD 12/31/2023 8:33 AM Stopped taking sometime between August and now since was getting lows Problem List As Of Date 12/31/2023 Noted Resolved MYALGIA AND MYOSITIS NOS [PFA0802] Mixed hyperlipidemia [E78.2] Essential hypertension [I10] Class 1 obesity due to excess calories with ser* 02/13/2021 CERVICAL DISC DEGEN [M50.30] 01/23/2006 Type 2 diabetes mellitus, uncontrolled [BRH6586]01/23/2006 05/14/2022 Cervical radiculopathy [EXH3666] 01/23/2006 ESOPHAGEAL REFLUX [K21.9] 07/29/2006 RETINAL HEMORRHAGE [H35.60] 02/27/2007 BONE AND CARTILAGE DIS NOS [M89.9, M94.9] 05/27/2007 Acute gastritis without mention of hemorrhage [*04/04/2010 05/14/2022 Diaphragmatic hernia without mention of obstruc*04/04/2010 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 - If your blood sugar goes high (above 250-300), drink water to help flush the sugar through. If it remains high, consider what you ate that may have caused the spike and try to avoid those foods in the future. - If your blood sugar goes low, take 3-4 glucose tablets (or 15-20 grams of carbs) to bring it back up. If it's still low after 15 minutes, take more. If you can't get it to stay up, call 911. - Continue taking your other medications as prescribed. - Consider getting the RSV and shingles vaccines at your pharmacy at your convenience. - You will have a follow-up appointment in March to update your cholesterol, blood counts, and metabolic panel. A urine test will also be done to make sure you're not spilling protein in your kidneys. Medications Discontinued During This Encounter Prescriptions - insulin glargine 100 unit/mL (3 mL) (Discontinued) Inject 18 Units subcutaneously three times a day. Gets through [facility] - escitalopram oxalate (LEXAPRO) 5 mg tablet (Discontinued) Reported on 09/27/2023 - escitalopram oxalate (LEXAPRO) 5 mg tablet (Discontinued) Reported on 12/31/2023 - famotidine (PEPCID) 40 mg tablet (Discontinued) Reported on 12/31/2023 - ubidecarenone Q-10 (COENZYME Q-10) 10 mg cap (Discontinued) Take 10 mg by mouth once daily. - zolpidem (AMBIEN) 5 mg tablet (Discontinued) Reported on 12/31/2023 - blood sugar diagnostic (ACCU-CHEK LENORE PLUS TEST STRP) test strip (Discontinued) Test blood sugar(s) 3 times daily. Dx: Type 2 DM - Uncontrolled E11.65 Insulin: Yes Level of Service: OFFICE/OUTPATIENT ESTABLISHED MOD MDM 30 MIN [88789] Additional E/M codes: VISIT CPLX INHERENT EANDM ASSOC WITH MED * Disposition: Return for Add next 3 month follow up, add next 2. Follow-up and Disposition History for Encounter Date Provider Department Center 12/31/2023 [id number] CAN INTMWS [facility] [place] Encounter Status:Closed by LORI CAN on 12/31/23 ALLERGIES DATE TYPE / CODE NAME / CODE REACTION SEVERITY SOURCE 11/13/2021 DRUG INGREDI/302390 003(SNOMED CT) MIRTAZAPINE OTHER: SEE C [facility] 06/26/2013 Environ/309964 006(SNOMED CT) SEASONAL ALLERGIES OTHER: SEE [facility] 06/06/2011 DRUG INGREDI/293735 003(SNOMED CT) LISINOPRIL COUGH [facility] ENCOUNTERS ADMIT/DISCHARGE ACCOUNT NUMBER ADMITTING ENCOUNTER CLASS LOC ATION SOURCE 12/07/2024/ 5 [id number] Ambulatory [facility] HospitalBuild ing:RIYA [facility] 12/03/2024/ 5 [id number] [facility] Hospital[facility] ing:PMWO [facility] 10/12/2024/ 5 [id number] [facility] HospitalBuild ing:WOIA [facility] 10/01/2024/ 5 [id number] [facility] HospitalBuild ing:WOLB [facility] 09/10/2024/ 5 [id number] Ambulatory [facility] [id number] [facility] 09/10/2024/ 5 [id number] Ambulatory [facility] [id number] [facility] 09/03/2024/ 5 [id number] [facility] HospitalBuild ing:PMWO [facility] 07/25/2024/ 5 [id number] [facility] HospitalBuild ing:WOUC [facility] 07/10/2024/ 5 [id number] [facility] HospitalBuild ing:WOIA [facility] 07/02/2024/ 5 [id number] [facility] HospitalBuild ing:PMWO [facility] 03/10/2024/ 4 [id number] [facility] HospitalBuild ing:WOLB [facility] 03/09/2024/ 4 [id number] [facility] HospitalBuild ing:WOIA [facility] 02/06/2024/ 4 [id number] [facility] HospitalBuild ing:PMWO [facility] 01/16/2024/ 4 [id number] [facility] HospitalBuild ing:PMWO [facility] 12/31/2023/ 4 [id number] [facility] HospitalBuild ing:WOIA [facility] PAYERS ENCOUNTER GUARANTOR PAYER SUBSCRIBER SOURCE 12/07/2024 Primary Insuranc e:[employer] MEDICARE PPOPolicy Number: [id number] Date:1282-96-79Avga Name:Zachariah ALLENOB: [id number] [place] [address] [facility] 12/03/2024 Primary Insuranc e:[employer] MEDICARE PPOPolicy Number: [id number] Date:2914-40-84Zhxh Name:Zachariah ALLENOB: [id number] [place] [address] [facility] 10/12/2024 Primary Insuranc e:[employer] MEDICARE PPOPolicy Number: [id number] Date:4381-54-48Lawr Name:Zachariah ALLENOB: [id number] [place] [address] [facility] 10/01/2024 Primary Insuranc e:[employer] MEDICARE PPOPolicy Number: [id number] Date:0466-27-22Msso Name:Zachariah ALLENOB: [id number] [place] [address] [facility] 09/10/2024 Primary Insuranc e:[employer] MEDICARE ADVANTAGEPolicy Number: [id number] Date:2380-46-06Gccp Name:Medicare HMO MAGNOLIA ALLENOB: [id number] [place] [address] [facility] 09/10/2024 Primary Insuranc e:[employer] MEDICARE ADVANTAGEPolicy Number: [id number] Date:4319-68-81Vfqw Name:Medicare HMO MAGNOLIA ALLENOB: [id number] [address], [place] [address] [place] [address] 09/03/2024 Primary Insuranc e:[employer] MEDICARE PPOPolicy Number: [id number] Date:8004-29-17Dybw Name:Zachariah ALLENOB: [id number] [place] [address] [facility] 07/25/2024 Primary Insuranc e:[employer] MEDICARE PPOPolicy Number: [id number] Date:8904-14-78Dhyc Name:Zachariah ALLENOB: [id number] [place] [address] [facility] 07/10/2024 Primary Insuranc e:[employer] MEDICARE PPOPolicy Number: [id number] Date:4629-42-39Qchy Name:Zachariah ALLENOB: [id number] [place] [address] [facility] 07/02/2024 Primary Insuranc e:[employer] MEDICARE PPOPolicy Number: [id number] Date:9359-07-47Zgec Name:Zachariah ALLENOB: [id number] [place] [address] [facility] 03/10/2024 Primary Insuranc e:[employer] MEDICARE PPOPolicy Number: [id number] Date:7499-91-78Vsjv Name:Zachariah ALLENOB: [id number] [place] [address] [facility] 03/09/2024 Primary Insuranc e:[employer] MEDICARE PPOPolicy Number: [id number] Date:0379-69-94Daim Name:Zachariah ALLENOB: [id number] [place] [address] [facility] 02/06/2024 Primary Insuranc e:[employer] MEDICARE PPOPolicy Number: [id number] Date:6106-85-92Hoag Name:Zachariah ALLENOB: [id number] [place] [address] [facility] 01/16/2024 Primary Insuranc e:[employer] MEDICARE PPOPolicy Number: [id number] Date:6737-48-21Dtsi Name:Zachariah ALLENOB: [id number] [place] [address] [facility] 12/31/2023 Primary Insuranc e:[employer]ICARE PPOPolicy Number: [id number] Date:4088-73-79Sfhk Name:Zachariah ALLENOB: [id number] [facility] [place] [address] [facility]
[2024-12-26 02:22] VITALS: BP 185/74; PULSE 66; RESP 16; TEMP 35.8; O2SAT 100
--- NOTE | 2024-12-26 02:34 | RAD_ITS ---
PROCEDURE: FOREARM 2 VIEWS 12/26/2024 REASON FOR EXAM: FALL TECHNIQUE: Procedure Code: RADFA Modality: DX Procedure: FOREARM 2 VIEWS Laterality: Left. COMPARISON: None. FINDINGS: Buckle cortical deformity of the distal radial metaphysis. Please evaluate with focal tenderness at this level to exclude a nondisplaced cortical fracture. Soft tissue edema and swelling. Mild osteopenia of the visualized bones. Degenerative joint disease. No dislocation is seen. No lytic or blastic bone lesion is noted. RAD/Forearm 2 Views IMPRESSION: Buckle cortical deformity of the distal radial metaphysis. Please evaluate wit h focal tenderness at this level to exclude a nondisplaced cortical fracture. Soft tissue edema and swelling. Reading Location: [facility]
--- NOTE | 2024-12-26 02:34 | RAD_ITS ---
PROCEDURE: WRIST MIN 3 VIEWS 12/26/2024 REASON FOR EXAM: FALL TECHNIQUE: Procedure Code: RADWR Modality: DX Procedure: WRIST MIN 3 VIEWS Laterality: LEFT. COMPARISON: NONE. FINDINGS: Soft tissue edema and swelling. Metallic clips are noted. Mild osteopenia of the visualized bones. Degenerative joint disease. No fracture or dislocation is seen. No lytic or blastic bone lesion is noted. RAD/Wrist min 3 Views IMPRESSION: Soft tissue edema and swelling. Reading Location: [facility]
--- NOTE | 2024-12-26 02:34 | RAD_ITS ---
PROCEDURE: HAND MIN 3 VIEWS 12/26/2024 REASON FOR EXAM: FALL TECHNIQUE: Procedure Code: ISIS Modality: DX Procedure: HAND MIN 3 VIEWS Laterality: Right COMPARISON: None. FINDINGS: Erosive arthritic changes of the of the proximal and distal interphalangeal joints of the Mild osteopenia of the visualized bones. Degenerative joint disease. No fracture or dislocation is seen. No lytic or blastic bone lesion is noted. RAD/Hand Min 3 Views IMPRESSION: No evidence for acute abnormality. Reading Location[facility]
--- NOTE | 2024-12-26 03:29 | EX.ED.DYSGE1 ---
HPI History of Present Illness Chief Complaint: Dizziness [facility] Medical History Nonrheumatic mitral (valve) insufficiency Secondary pulmonary arterial hypertension Non-rheumatic aortic stenosis Essential (primary) hypertension Elevated liver enzymes Pancreatitis due to biliary obstruction Atherosclerotic heart disease of [place] coronary artery without angina pectoris Hyperlipidemia Gastroesophageal reflux disease Diabetes mellitus, type 2 Home Medications ?Medication ?Instructions ?Recorded ?Last Taken ?Type losartan 50 mg tablet 50 mg PO DAILY 02/04/13 07/29/23 History nitroglycerin 0.4 mg sublingual 0.4 mg sublingual TID PRN PRN 04/16/17 Unknown History tablet Angina insulin lispro 100 unit/mL 15 unit subcut TIDCM 09/23/17 Unknown History subcutaneous solution aspirin 81 mg tablet,delayed 81 mg PO DAILY 10/23/18 07/29/23 History release (Adult Aspirin Regimen) metoprolol succinate 100 mg 100 mg PO DAILY 12/29/19 07/29/23 History tablet,extended release 24 hr atorvastatin 40 mg tablet 40 mg PO QHS #90 tabs 05/25/22 Unknown Rx multivitamin (Daily Multi-Vitamin 1 tab PO DAILY 11/19/22 Unknown History tablet) cholecalciferol (vitamin D3) 50 50 mcg PO DAILY 07/09/23 Unknown History mcg (2,000 unit) capsule cyclosporine 0.05 % eye drops in a 1 drp ophthalmic (eye) Q12H 07/09/23 Unknown History dropperette (Restasis) famotidine 40 mg tablet 40 mg PO DAILY 07/09/23 07/29/23 History vitamins A,C,I-yagh-dsegmg 4,296 1 cap PO BID 07/09/23 Unknown History mcg-226 mg-90 mg capsule (PreserVision AREDS) clopidogrel 75 mg tablet See Rx Instructions .Route 04/16/24 Unknown Rx .COMPLEX #90 tabs furosemide 40 mg tablet 40 mg PO DAILY #90 TABLETS 07/08/24 Unknown Rx potassium chloride 20 mEq 20 meq PO DAILY #90 TABLETS 08/31/24 Unknown Rx tablet,extended release(part/cryst) Allergy/AdvReac Type Severity Reaction Status Date / Time shellfish derived Allergy LIP Verified 12/26/24 02:22 SWELLING, DIARRHEA lisinopril AdvReac COUGH Verified 12/26/24 02:22 Kzrtnqa-FLS-YeY Reductase AdvReac Diarrhea Verified 12/26/24 02:22 Inhibitor (Aoekazy-Ruv-Vpo Reductase Inhibitor) Family History Father Aortic aneurysm Hypertension CAD (coronary artery disease) Brother Hypertension Diabetes COPD (chronic obstructive pulmonary disease) Sister Hypertension Aortic aneurysm Daughter Hypertension Cancer Mother COPD (chronic obstructive pulmonary disease) CHF (congestive heart failure) Surgical History 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) History of right and left heart catheterization (01/04/21) History of coronary artery stent placement (01/04/21) History of left heart catheterization (04/28/07) H/O coronary artery bypass surgery (04/10/98) Social History Smoking Status: Former smoker alcohol intake: never substance use type: does not use caffeine: Yes Type: coffee and tea what type of physical activity do you participate in: walking frequency: daily duration: 15-30 minutes/day seatbelt use: always do you feel safe at home: Yes EXAM Physical Exam Const Vital Signs: 12/26/24 02:22 12/26/24 04:21 12/26/24 06:00 Temperature 96.4 F L Temperature Source Temporal Pulse Rate 66 67 65 Respiratory Rate 16 16 16 Blood Pressure 185/74 H 137/73 H 138/89 H Blood Pressure Mean 111 94 105 Pulse Ox 100 99 100 Oxygen Delivery Method Room Air Room Air Room Air MDM MDM MDM Narrative Medical decision making narrative: HISTORY OF PRESENT ILLNESS: Chief complaint: Dizziness, bilateral wrist pain 84-year-old female history of aortic valve placement, CAD status post CABG, pulmonary artery hypertension, hypertension, hyperlipidemia presents with feeling dizzy/lightheaded. Notes she almost passed out but caught herself injuring bilateral wrist. Denies head trauma or LOC. She notes she typically gets lightheaded upon standing. No she may have stood up too quickly. Notes dizziness did linger after she fell down for several minutes which is different. Denies recent vomiting. Denies recent fever. Denies any bleeding diathesis. Denies diarrhea. Denies abdominal pain or headache. REVIEW OF SYSTEMS: Pertinent positives: Dizziness, bilateral wrist pain Pertinent negatives: Headache, chest pain, shortness of breath, abdominal pain PHYSICAL EXAM: Nursing triage notes reviewed, Vital signs reviewed Constitutional: please see [facility] HENT: MMM Eyes: Pupils equal round and reactive to light, Extraocular muscles intact Neck: No stridor, no JVD, full neck ROM Lungs: Clear to auscultation, No wheezing or rales. No increased work of breathing, no conversational dyspnea, no accessory muscle use, no nasal flaring. No respiratory distress noted Heart: Regular rate and rhythm, No murmurs, No rubs and No gallops, 2+ distal pulses (radial, femoral, posterior tibial) in all extremities Abdomen: Soft, there is no tenderness, rigidity, rebound or guarding, no obvious peritoneal signs, no palpable pulsatile abdominal masses, no auscultated abdominal bruit : No CVAT Extremities: No edema Neuro: Alert and oriented x3, neuro exam at baseline, cranial nerves II through XII are intact. No pain with extraocular muscle movement. There is negative test of skew. 5 of 5 strength in upper and lower extremities in flexion extension. Intact sensation to light touch in upper and lower extremity dermatomes. No truncal or extremity ataxia. No dysdiadochokinesia. Normal gait. 2+ reflexes in upper and lower extremities. No meningeal signs. Negative Babinski. NIH of 0. Skin: No rash or lesions noted MEDICAL DECISION MAKING: Chief Complaint: please see [facility] External records reviewed: Echocardiogram from 2024 shows an ejection fraction of 74% Factors affecting care: as per [facility] Social determinants of health: denies illicit drug use History obtained from others: none Consults: none [facility] Narrative: Patient was initially hemodynamically stable, afebrile and nontoxic-appearing. Exam without focal cardiopulmonary abnormalities. No stigmata of CHF initial exam. There is TTP over left wrist/forearm and right hand. No signs of head trauma I considered the following differential diagnosis: Bony injury to bilateral wrists, hand and forearm. ACS, arrhythmia, anemia, electro disturbance, pneumonia, intracranial hemorrhage I obtained a broad lab and imaging workup to further determine if the patient was suffering from a life-threatening etiology. Given concern for lightheadedness did obtain EKG, troponin and basic blood work ALL IMAGES (IF OBTAINED) HAVE BEEN PERSONALLY REVIEWED AND INTERPRETED BY MYSELF. I have personally reviewed the patient's chest x-ray. Chest x-ray is unremarkable for pulmonary edema, pneumothorax, pneumonia or focal cardiopulmonary abnormality. X-ray of the left wrist, left forearm, right hand read reviewed by myself show no evidence obvious bony abnormality radiologist agrees my to potation CBC shows leukocytosis likely reactive from trauma, no anemia or thrombocytopenia to explain lightheadedness BMP without significant electrolyte MIs explain lightheadedness, no acute kidney injury suggest to be dehydration LFTs show no evidence of hepatobiliary pathology. High-sensitivity troponin is negative, no evidence of myocardial ischemia The synthesis of the patient's history, physical exam, labs images suggest likely orthostatic hypotension. No obvious traumatic injuries The patient and/or family, caregivers express understanding. The patient and/or family, caregivers agrees with the plan. Shared decision making: I will have a discussion with the patient and or visitors regarding risk/benefits of further testing or admission. They will be made aware of of the risk/benefits inherent in this decision they will be given the opportunity to voice understanding. Total critical care time today provided was at least 0 [] minutes. This excludes separately billable procedures. Critical care time (if documented) is secondary to the patient having high probability of clinically significant/life threatening deterioration in the patient's condition which required my urgent intervention. Impression: 1. Orthostatic hypotension 2. Left wrist sprain Dispo: Discharge This note was generated with [employer] dictation software. It may contain incorrect words, spelling, and punctuation that were not noted in review of the chart prior to signing. Lab Data Labs: Laboratory Results - last 24 hr 12/26/24 04:22 WBC 12.0 H RBC 4.03 L Hgb 13.2 Hct 39.5 MCV 98.0 MCH 32.8 H MCHC 33.4 RDW Std Deviation 45.7 H RDW Coeff of Rafi 12.6 Plt Count 248 MPV 10.4 Sodium 133 Potassium 3.8 Chloride 97 L Carbon Dioxide 26.5 Anion Gap 10 BUN 13 Creatinine 0.56 L Est GFR (MDRD) Non-Af 91 BUN/Creatinine Ratio 22.9 H Glucose 131 H Calcium 9.2 Total Bilirubin 1.06 AST 30 ALT 22 Alkaline Phosphatase 108 H Troponin T High Sens 26 H Total Protein 6.5 Albumin 3.9 Globulin 2.6 Albumin/Globulin Ratio 1.5 Radiography Diagnostic Testing: Clinical Impression(s) from Imaging Studies Forearm X-Ray 12/26/24 02:34 IMPRESSION: Buckle cortical deformity of the distal radial metaphysis. Please evaluate with focal tenderness at this level to exclude a nondisplaced cortical fracture. Soft tissue edema and swelling. [facility]-Ray 12/26/24 02:34 IMPRESSION: No evidence for acute abnormality. Reading [facility] Wrist X-Ray 12/26/24 02:34 IMPRESSION: Soft tissue edema and swelling. [facility] Chest X-Ray 12/26/24 04:32 IMPRESSION: No acute cardiopulmonary abnormalities. Reading Location: [facility] Discharge Plan Triage Chief Complaint: Dizziness ED Provider: Bud Ocampo Dx/Rx/DC Orders Clinical Impression: Lightheadedness, Left wrist sprain Instructions: ED Hypotension, Orthostatic Prescriptions: No Action aspirin [Adult Aspirin Regimen] 81 mg tablet,delayed release (DR/EC) 81 mg PO DAILY metoprolol succinate 100 mg tablet extended release 24 hr 100 mg PO DAILY atorvastatin 40 mg tablet 40 mg PO QHS Qty: 90 3RF multivitamin [Daily Multi-Vitamin] Tablet 1 tab PO DAILY famotidine 40 mg tablet 40 mg PO DAILY cyclosporine [Restasis] 0.05 % dropperette 1 drp ophthalmic (eye) Q12H PreserVision AREDS 4,296 mcg-226 mg-90 mg capsule 1 cap PO BID cholecalciferol (vitamin D3) 50 mcg (2,000 unit) capsule 50 mcg PO DAILY losartan 50 MG tablet 50 mg PO DAILY insulin lispro 100 unit/mL solution 15 unit SC TIDCM Patient Comments: 20 unit SC as directed Rx Instructions: 15 unit SC as directed nitroglycerin 0.4 MG tablet, sublingual 0.4 mg sublingual TID PRN PRN (Reason: Angina) Patient Comments: 3 tablets ever 5 min for a total of 3 till symptoms resolve. clopidogrel 75 mg tablet See Rx Instructions .ROUTE .COMPLEX Qty: 90 3RF Dose Instruction: TAKE 1 TABLET EVERY DAY Rx Instructions: TAKE 1 TABLET EVERY DAY furosemide 40 mg tablet 40 mg PO DAILY Qty: 90 3RF potassium chloride 20 mEq tablet,ER particles/crystals 20 meq PO DAILY Qty: 90 3RF Primary Care Provider: Lindy Can Referrals: Lindy Can MD [Primary Care Provider, Internal Medicine] Activity Restrictions/Additional Instructions: Thank you for trusting us with your care today! Please take Tylenol (2 pills, 650 mg), ibuprofen (2 pills, 400 mg) every 6 hours as needed for pain and fever control. Please return to the emergency department if your symptoms change or worsen. Please follow with your primary care physician for further outpatient evaluation and management. Print Language: Amharic Disposition Disposition: Home, Self Care
--- NOTE | 2024-12-26 04:15 | EKG12_ITS ---
Test Reason : DIZZY Blood Pressure : */* mmHG Vent. Rate : 66 BPM Atrial Rate : 66 BPM P-R Int : 194 ms QRS Dur : 78 ms QT Int : 426 ms P-R-T Axes : 52 -10 53 degrees QTcB Int : 446 ms Normal sinus rhythm Possible Anterior infarct , age undetermined Abnormal ECG Confirmed by MAYI ANTONIO ([id number]), associate editor BETO WOOTEN ([id number]) on 12/28/2024 8:46:20 AM Referred By: Confirmed By: MAYI ANTONIO
[2024-12-26 04:21] VITALS: BP 137/73; PULSE 67; RESP 16; O2SAT 99
--- NOTE | 2024-12-26 04:32 | RAD_ITS ---
PROCEDURE: CHEST 1 VIEW (PORTABLE) 12/26/2024 REASON FOR EXAM: DIZZY TECHNIQUE: Frontal view of the chest. COMPARISON: Chest x-ray 07/09/2023. FINDINGS: Hardware: Monitor electrodes overlie the chest. Heart: Status post median sternotomy. Lungs: Clear. No pleural effusion or pneumothorax. Bones: No acute bony abnormalities. RAD/Chest 1 View (Portable) IMPRESSION: No acute cardiopulmonary abnormalities. Reading Location: [id number]
[2024-12-26 04:37] LABS: Hematocrit 39.5 % (37-47); Hemoglobin 13.2 g/dL (12.0-15.0); Mean Corp Hgb Conc 33.4 g/dL (32-36); Mean Corpuscular Volume 98.0 fL (81-99); Mean Platelet Vol. 10.4 fl (6.2-12.0); Platelet Count 248 K/mm3 (150-450); RBC Distribution Width CV 12.6 % (11.6-14.6); RBC Distribution Width SD 45.7 fl (35.1-43.9); Red Blood Count 4.03 M/mm3 (4.2-5.4); White Blood Count 12.0 K/mm3 (4.4-11.0)
[2024-12-26 05:22] LABS: Troponin T High Sensitivity 26 ng/L (<=14)
[2024-12-26 05:25] LABS: AST(SGOT) 30 U/L (<=31); Alanine Aminotransfer ALT/SGPT 22 U/L (<=34); Albumin, Serum 3.9 g/dL (3.4-4.8); Alkaline Phosphatase 108 U/L (35-104); Anion Gap 10 (5-15); BUN 13 mg/dL (4-19); BUN/Creat Ratio 22.9 RATIO (10-20); Calcium,Total 9.2 mg/dL (7.6-11.0); Carbon Dioxide 26.5 mmol/L (21.0-32.0); Chloride 97 mmol/L (98-108); Globulin 2.6 g/dL (2.2-4.2); Glucose 131 mg/dL (70-99); Potassium 3.8 mmol/L (3.3-5.1)
[2024-12-26 06:00] VITALS: BP 138/89; PULSE 65; RESP 16; O2SAT 100
[2024-12-26 06:45] VITALS: BP 120/77; PULSE 66; RESP 16; TEMP 36.6; O2SAT 100
== END 2024-12-26 07:00 | disposition home or self-care (01) ==
PROVIDERS: Emergency Provider Emergency Medicine; PCP Internal Medicine; Visit Provider Emergency Medicine
DX: I95.1 Orthostatic hypotension (principal); E11.9 Type 2 diabetes mellitus without complications; Z87.891 Personal history of nicotine dependence; E78.5 Hyperlipidemia, unspecified; I25.10 Atherosclerotic heart disease of native coronary artery without angina pectoris; W19.XXXA Unspecified fall, initial encounter; S63.92XA Sprain of unspecified part of left wrist and hand, initial encounter; I10 Essential (primary) hypertension; Z95.2 Presence of prosthetic heart valve; Z95.1 Presence of aortocoronary bypass graft; Z95.5 Presence of coronary angioplasty implant and graft; K21.9 Gastro-esophageal reflux disease without esophagitis
CPT/HCPCS: 71045; 73090; 73110; 73130; 80053; 84484; 85027; 93005; 99285; A4216

== ENCOUNTER → 2025-03-16 | Outpatient (CLI) | payer MEDICARE, SELFPAY ==
[2021-03-17 10:14] VITALS: BMI 26.7
--- NOTE | 2025-02-15 12:07 | HP.PCM_ITS ---
History and Physical Date of Admission: 03/15/25 HALEIGH FISHER, is a 84 F who presents to the office today for a LILIANE to assess her mitral valve stenosis. She is a history of coronary artery disease with bypass surgery in 1998. She had an MACARIO to the LAD, left radial to the diagonal. Heart catheterization in 2007 demonstrated left main normal, LAD totally occluded, ramus intermedius 30-40% stenosis, circumflex with no significant disease, RCA small with no significant disease, radial artery to the diagonal patent, MACARIO to LAD patent. She underwent a heart catheterization on 01/04/2021 for chest discomfort. This showed patent MACARIO to LAD, patent radial to diagonal vessel, severe stenosis noted of the ostial circumflex artery, p reserved left ventricular systolic function, and moderately severe pulmonary hypertension with mild aortic valve stenosis and moderate mitral valve regurgitation. She underwent drug-eluting stent to ostial LCx. She also has a past medical history of hypertension, hyperlipidemia, and aortic valve stenosis. She underwent TAVR on 09/11/2023. From a cardiac standpoint, the patient is doing well. She denies any palpitations, chest pain, pressure or heaviness. She does acknowledge SOB with exertion-this is nothing new or worsening. She denies Orthopnea, and PND. She does not have bleeding issues; no blood in urine, stool, or nosebleeds. She does acknowledge frequent/easy bruising. She does acknowledge fatigue-she attributes this to her age. She denies myalgias, or claudication. She does not have edema, or sudden weight gain. She does acknowledge occasional lightheadedness with quick positional changes. She denies dizziness, syncopal or near syncopal episodes, and headaches. 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) History of right and left heart catheterization (01/04/21) History of coronary artery stent placement (01/04/21) History of left heart catheterization (04/28/07) H/O coronary artery bypass surgery (04/10/98) Family History Father Aortic aneurysm Hypertension CAD (coronary artery disease) Brother Hypertension Diabetes COPD (chronic obstructive pulmonary disease) Sister Hypertension Aortic aneurysm Daughter Hypertension Cancer Mother COPD (chronic obstructive pulmonary disease) CHF (congestive heart failure) Social History Smoking Status: Former smoker alcohol intake: never substance use type: does not use caffeine: Yes Type: coffee and tea what type of physical activity do you participate in: walking frequency: daily duration: 15-30 minutes/day seatbelt use: always do you feel safe at home: Yes ROS Const Const: Positive for fatigue; Negative for weakness, headache(s) or frequent falls Eyes Eyes: Negative for blurry vision ENT ENT: Negative for headache(s), dizziness or Nosebleed/epistaxis Cardio Chest Pain: No Palpitations: No Edema: None Muscle aches with walking: None Resp Respiratory: Positive for SOB with activity; Negative for SOB at rest or SOB orthopnea\SOB lying down GI GI: Negative nausea, vomiting, heartburn, bright, red blood in stools or black,tarry stools : Negative for hematuria Skin Skin: Positive for unusual bruising Neuro Neuro: Positive for lightheadedness; Negative for dizziness, near syncope, syncope, frequent falls, headache(s), weakness or blurry vision Endo Endo: Positive for fatigue Cardiology Exam Const Appearance: cooperative, healthy appearing, comfortable and no acute distress Nutritional Appearance: well nourished and overweight Orientation: alert, awake and oriented x3 Head Head: normal to inspection Ears: hearing grossly normal bilaterally Nose: external nose normal Face and Sinus: face symmetric Eyes General: appearance normal, both eyes and all related structures Eyelids: eyelids normal EOM: EOM intact bilaterally Neck Neck: normal visual inspection and no JVD Carotids: normal carotid upstroke Chest Chest inspection: normal inspection of the chest, symmetric chest movement and normal respiratory effort; Negative cough Auscultation: Bilateral: Clear to Auscultation Cardio Rate: regular rate Rhythm: regular rhythm Heart sounds: S1 normal, S2 normal and murmur; Negative rub or gallop Murmur: Grade 1/6 and PRAVEEN loudest primary aortic area GI GI: normal to inspection Neuro General: patient alert, patient awake, patient oriented x3 and CN's II-XI intact bilaterally Skin Skin: no rashes or lesions noted Extremities Pulses: Normal: Right Posterior Tibial Pulse, Left Posterior Tibial Pulse and Right Radial Pulse and Absent: Left Radial Pulse Lower Extremity Edema: None: Right and Trace: Left Psych Psychological: normal affect Supplemental Info Supplemental Information Cardiac catheterization 07/2023: CONCLUSIONS Patient status post coronary bypass surgery. Patent MACARIO to the LAD and radial artery to the diagonal vessel. [place] disease noted of the circumflex artery which is moderate. Patient is noted to have moderately severe aortic stenosis. RECOMMENDATIONS Would recommend tertiary care facility opinion regarding TAVR. Echocardiogram from 06/25/2023: Interpretation Summary Normal LV size. Left ventricular systolic function is normal. The estimated ejection fraction is 70 %. Moderate focal aortic valve calcification. Mean aortic valve gradient 37 mmHg. Mild (1+) aortic valve insufficiency. Compared to the previous the aortic valve gradients are significantly increased. The global longitudinal strain is normal. The global longitudinal strain = -19.2 % (normal). Echocardiogram from 06/18/2022: Interpretation Summary Normal LV size. Left ventricular systolic function is normal. The estimated ejection fraction is 60 %. Stage 2 diastolic dysfunction. Pulmonary artery systolic pressure is 44 mmHg. Mild-Moderate (1-2+) eccentric mitral valve insufficiency. Mean aortic valve gradient 25 mmHg. Mean transmitral valve gradient 10.4 mmHg. Mild-Moderate mitral valve stenosis. Moderate aortic stenosis. Stress test from 04/16/2018: Conclusion: Normal exercise myocardial perfusion stress test at a moderate workload. No clinical angina noted. Good functional capacity noted. Preserved ejection fraction. Heart catheterization from 01/04/2021: CONCLUSIONS Patent MACARIO to the LAD, patent radial to the diagonal vessel, severe stenosis noted of the ostial circumflex artery. Preserved left ventricular systolic function noted Moderately severe pulmonary hypertension, mild aortic stenosis and moderate mitral regurgitation RECOMMENDATIONS We will consider PCI to the ostial circumflex artery and treat aggressively for the mitral regurgitation and mitral calcification. CORONARY ANGIOGRAPHY DOMINANCE: Left Dominant LEFT HEART ASSESSMENT Left Ventricular Ejection Fraction: by LV Gram 60 % Normal LV wall motion RIGHT HEART ASSESSMENT Thermal CO: 3.61 Thermal CI: 2.1 Dami CO: 5.09 Dami CI: 2.96 PW: 27 PA: 68/27 43 RV: 76/3 14 RA: 15 PVR: 287 SVR: 1241 Right Heart pressures - elevated LEFT MAIN: Mild calcification LEFT ANTERIOR DESCENDING ARTERY: OSTIAL LAD: is occluded CIRCUMFLEX ARTERY: OSTIAL CIRC: 80 % Stenosis RIGHT CORONARY ARTERY: Moderate luminal irregularities up to 50% GRAFTS: MACARIO graft to the Mid LAD is patent Radial graft to the 1st Diagonal is patent VALVE FINDINGS: Aortic Valve Stenosis - mild Mitral Valve Calcification Moderate Mitral Valve Insufficiency - Grade 3 Cardiac intervention from 01/04/2021: CONCLUSIONS Successful NICO to ostial LCx Assessment and Plan Assessment and Plan (1) Nonrheumatic mitral (valve) insufficiency: Status: Chronic Plan: Patient has a history of mitral valve insufficiency. Her echocardiogram on 09/10/2024 demonstrated ejection fraction of 74%, valve structure is normal with severely calcified leaflets and mild to moderate 1-2+ regurgitation, and severe stenosis noted.Reviewed with Dr. Hoyos, will proceed with LILIANE to further assess. Depending on results, further recommendations will be made.
--- NOTE | 2025-03-16 08:54 | ECHOTEE_ITS ---
Reason For Study Reason For Study: MITRAL STENOSIS Medication LILIANE probe 6VT-D (SN [id number]) passed without difficulty. No complications were noted. Versed 2 mg given slow IVP. Fentanyl 50 mcg given slow IVP. Performed a rapid injection of agitated mix of 9 cc saline and 1cc air to assess for atrial septal defect. Cetacaine Topical [place] given X3 orally. Left Ventricle Normal LV size. D shaped septum in systole and diastole. The left ventricular ejection fraction is 55 %. There is mild global hypokinesis of the left ventricle. Right Ventricle Normal RV size. Normal systolic function. Atria Bubble contrast study is negative for PFO/ASD. The left atrium is mildly enlarged. No thrombus is detected in the left atrial appendage. Normal right atrium. Mitral Valve There is moderate to severe mitral annular calcification. Severe mitral valve stenosis. Mild (1+) eccentric mitral valve insufficiency. Tricuspid Valve Normal tricuspid valve. Moderate-Severe (3+) tricuspid valve insufficiency. Aortic Valve Bioprosthetic aortic valve. Pulmonic Valve Normal pulmonic valve. Vessels Normal aortic root. Normal arch. The pulmonary artery is normal size. Normal pulmonary veins. Pericardium No pericardial effusion. Doppler Measurements & Calculations MV V2 max: 258.1 cm/sec TR max ned: 425.3 cm/sec MV max P.6 mmHg MV V2 mean: 169.2 cm/sec MV mean P.2 mmHg MV V2 VTI: 74.9 cm ECHO/Echo Transesophageal (LILIANE) Interpretation Summary Normal LV size. Bubble contrast study is negative for PFO/ASD. There is mild global hypokinesis of the left ventricle. Bioprosthetic aortic valve. The left ventricular ejection fraction is 55 %. There is moderate to severe mitral annular calcification. Mild (1+) eccentric mitral valve insufficiency. Severe mitral valve stenosis. D shaped septum in systole and diastole. Ordering Physician: Catie Barcenas Referring Physician: LORI RODRIGUEZ Performed By: Daria Mccord RDCS
== END | disposition home or self-care (01) ==
LOC: CVS 08:54
PROVIDERS: PCP Internal Medicine; Referring Provider Internal Medicine Cardiovascular Disease; Visit Provider Internal Medicine Cardiovascular Disease
DX: I05.0 Rheumatic mitral stenosis (principal)
CPT/HCPCS: 93312; 93320; 93325; A4216